=== PATIENT | male | born 1955 | race Caucasian/White ===

== ENCOUNTER 2018-06-27 08:49 | Emergency (ER) | payer MEDICARE ==
[~2018-06-27] VITALS: Ht 198.1 cm; Wt 102.5 kg
[~2018-06-27 08:49] MED LIST: ATROVENT HFA12.9 GM INH; CENTRUM SILVER1 EAC2 PO; COUMADIN4 MG PO; COUMADIN5 MG PO; DIINDOLYLMETHANE1 GM MISC; FISH OIL 1,0001 EAC2 NG; FLOVENT DISKUS50 MCG INH; LEVAQUIN500 MG PO; LEVOFLOXACIN500 MG PO; NORCO 5-325 TA1 EACH PO; OLYSIO PO; PRILOSEC20 MG PO; TOPROL XL100 MG PO; VENTOLIN HFA18 GM IH; VIAGRA50 MG PO; VITAMIN C1000 M1 PO; WARFARIN SODIUM4 MG PO
[2018-06-27] MEDS ORDERED: GABAPENTIN300 MG PO (09:03)
[2018-06-27] MEDS ORDERED: METHOCARBAMOL500 MG PO (09:03)
[2018-06-27] MEDS ORDERED: NORCO 7.5-3251 EACH PO (09:44)
== END 2018-06-27 10:32 | disposition home or self-care (01) ==
LOC: ED 08:49
DX: S22.42XA Multiple fractures of ribs, left side, initial encounter for closed fracture (principal); I48.2 Chronic atrial fibrillation; J45.909 Unspecified asthma, uncomplicated; Z87.891 Personal history of nicotine dependence; Z90.49 Acquired absence of other specified parts of digestive tract; Z79.01 Long term (current) use of anticoagulants; Z79.899 Other long term (current) drug therapy; W19.XXXA Unspecified fall, initial encounter
CPT/HCPCS: 71101; 85610; 99283-25

== ENCOUNTER 2018-08-01 21:57 | Emergency (ER) | payer MEDICARE ==
[~2018-08-01] VITALS: Ht 198.1 cm; Wt 98.0 kg
--- OUTSIDE RECORDS SUMMARY | ~2018-08-01 | XMS | Encounter Summary ---
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 [address]. All righ ts reserved. This information is not intended as a substitute for professional medical care. Always follow your healthcare professional's instructions. in this encounter Medications at Time of Discharge + + +---------+---------+ + + | Medication | Sig. | Disp. | Refills | Start | End Date | | | | | | Date | | + + +---------+---------+ + + | acetaminophen | Take 2 tablets by | 30 | 0 | 05/24/19 | | | (TYLENOL) 500 MG | mouth every 8 | tablet | | 19 | | | tablet | (eight) hours. | | | | | + + +---------+---------+ + + | albuterol | Inhale 2 puffs into | | | | | | (PROVENTIL | the lungs. | | | | | | HFA;VENTOLIN HFA) | | | | | | | 108 (90 Base) | | | | | | | MCG/ACT inhaler | | | | | | + + +---------+---------+ + + | bisoprolol | Take 1 tablet by | 30 | 11 | 05/05/19 | | | (ZEBETA) 10 MG | mouth daily. | tablet | | 19 | 0 | | tabletIndications: | | | | | | | Permanent atrial | | | | | | | fibrillation (HCC) | | | | | | + + +---------+---------+ + + | | Inhale 2 puffs into | 1 | 12 | 01/18/20 | | | budesonide-formotero | the lungs 2 (two) | Inhaler | | 18 | 9 | | l (SYMBICORT) | times daily. | | | | | | 160-4.5 MCG/ACT | | | | | | | inhaler | | | | | | + + +---------+---------+ + + | omeprazole | Take 20 mg by mouth. | | | | | | (PRILOSEC) 20 MG | | | | | | | capsule | | | | | | + + +---------+---------+ + + | warfarin | Take 6 mg by mouth | | | | | | (COUMADIN) 4 MG | daily. | | | | | | tabletIndications: | | | | | | | Taking 6 mg on | | | | | | | Wednesday, Wednesday, | | | | | | | and Wednesday, 8 mg all | | | | | | | other days. | | | | | | | Followed by [facility] | | | | | | | [facility] | | | | | | + + +---------+---------+ + + | methocarbamol | Take 1 tablet by | 180 | 0 | 05/24/19 | | | (ROBAXIN) 500 MG | mouth 3 (three) | tablet | | 19 | 9 | | tablet | times daily as | | | | | | | needed for up to 30 | | | | | | | days. | | | | | + + +---------+---------+ + + | gabapentin | Take 1 capsule by | 90 | 0 | 05/24/19 | | | (NEURONTIN) 300 MG | mouth 3 (three) | capsule | | 19 | 9 | | capsule | times daily for 30 | | | | | | | days. | | | | | + + +---------+---------+ + + as of this encounter Progress Notes Ernst Victoria PA-C - 05/24/2018 8:24 AM PSTFormatting of this note may be different fr om the original. [facility] Service: Cardiothoracic Surgery Progress Note ROOM: 9103/[facility]-1 Hospital Day: LOS: 1 day Post-Op Day: 1 Day Post-Op Surgery/Procedure: 05/23/18 1. Left thoracoscopy. 2. Resection of large left bulla. SUBJECTIVE Events Overnight: Stable night, some muscular pain. CT Output: 0mL/overnight, 0mL/24hrs, no airleak noted OBJECTIVE Vital Signs: BP (!) 134/99 (BP Location: Left upper arm) | Pulse 84 | Temp 97.7 F (36.5 C) (Oral) | Resp 18 | Ht 1.981 m (6' 6") | Wt 104 kg (229 lb 4.5 oz) | SpO2 94% | BMI 26.50 kg/m Current weight: Patient Vitals for the past 96 hrs: Weight 05/24/18 0344 104 kg (229 lb 4.5 oz) 05/23/18 0626 99.7 kg (219 lb 12.8 oz) Admission weight: Weight: 99.7 kg (219 lb 12.8 oz) Physical Exam: General: Alert, oriented, in no acute distress, resting in chair Heart: RRR No murmur Lungs: CTA b/l Dim bases. Abdomen: Soft, nondistended, nontender Extremities: Well perfused, No LE edema Musculoskeletal: no deformities or significant abnormalities Neurological: No gross focal motor or sensory deficits Skin: No rash or lesions. Thoracoscopy incision dressing is C/D/I. Chest tube present inc ision C/D/I. DATA: Scheduled Medications acetaminophen 1,000 mg Oral Q6H budesonide-formoterol 2 puff Inhalation BID ceFAZolin 1 g Intravenous Q8H docusate sodium 100 mg Oral BID famotidine 20 mg Oral BID Or famotidine 20 mg Intravenous BID gabapentin 300 mg Oral TID lidocaine 2 patch Transdermal Daily magnesium hydroxide 30 mL Oral Daily methocarbamol 1,000 mg Oral 4x Daily metoprolol 100 mg Oral Daily pantoprazole 40 mg Oral QAM AC warfarin 6 mg Oral Daily Continuous Infusions PRN Medications albuterol, aluminum-magnesium hydroxide-simethicone, benzocaine-menthol, magnesium sulfate OR magnesium sulfate OR magnesium sulfate, meperidine, ondansetron, potassium OR potassium OR potassium OR potassium chloride OR potassium chloride OR potas sium chloride HOME MEDS: Prior to Admission medications Medication Sig Start Date End Date Taking? Authorizing Provider albuterol (PROVENTIL HFA;VENTOLIN HFA) 108 (90 Base) MCG/ACT inhaler Inhale 2 puffs into th e lungs. Yes Historical Provider bisoprolol (ZEBETA) 10 MG tablet Take 1 tablet by mouth daily. 05/05/18 05/05/19 Yes EDINSON Benson budesonide-formoterol (SYMBICORT) 160-4.5 MCG/ACT inhaler Inhale 2 puffs into the lungs 2 ( two) times daily. 01/17/18 01/17/19 Yes Tristian Foote MD omeprazole (PRILOSEC) 20 MG capsule Take 20 mg by mouth. Yes Historical Provider warfarin (COUMADIN) 4 MG tablet Take 6 mg by mouth daily. Historical Provider LABS: Recent Labs Lab 05/24/18 0359 05/23/18 1213 WBC 10.67 10.64 HGB 15.7 15.2 HCT 46.6 44.3 PLT 179 169 NEUTOPHILPCT 80.25 89.53 MONOPCT 11.05 3.85 Recent Labs Lab 05/24/18 0359 05/23/18 1213 NA 140 145 K 4.3 4.9 CL 103 106 CO2 26 27 BUN 19 13 CREATININE 1.1 1.07 Phosphorus: No results found for: PHOS Invalid input(s): LABALBU Recent Labs Lab 05/24/18 0359 05/23/18 1213 MG 2.2 2.1 No results for input(s): AMYLASE in the last 168 hours. No results for input(s): PHART, PO2ART, SZM3IVL, S4SQYGBX, BEART in the last 168 hours. Recent Labs Lab 05/23/18 0645 INR 1.2 No results for input(s): TSH, T3FREE, FREET4 in the last 168 hours. No results for input(s): CKTOTAL, TROPONINI, TROPONINT, CKMBINDEX in the last 168 hours. PROBLEM LIST Principal Problem: Lung bullae (HCC) ASSESSMENT & PLAN S/P VATS resection of large bullae -CXR no PTX, no airleak. Remove CT -CXR @ 1200, if stable pt can DC home F/u in 2wks with CXR Code Status: Full Code The patient has been seen, all new lab results and imaging reviewed, and the plan discussed with the attending provider, Dr. Braxton Victoria PA-C 05/24/2018 Associated attestation - Samson Limon MD - 05/24/2018 1:43 PM PSTPatient was seen, pamelai vonnie, labs, x-rays, treatment plan reviewed. in this encounter Plan of Treatment +--------+---------+ + + + | Date | Type | Specialty | Care Team | Description | +--------+---------+ + + + | 08/05/ | Office | Pulmonology | Tristian Foote MD | | | 2018 | Visit | | [address] | | | | | | [place] [address] | | | | | | [phone] | | | | | | | | +--------+---------+ + + + | 08/15/ | Office | Cardiology | Sarai Arce | | | 2018 | Visit | | [address] | | | | | | [address] | | | | | | [place] [address] | | | | | | [phone] | | | | | | | | +--------+---------+ + + + | 08/19/ | Office | General Surgery | Michele Motta, | | | 2018 | Visit | | MD Donna [address]EE | | | | | | [address], | | | | | | [place] [address] | | | | | | [phone] | | | | | | | | +--------+---------+ + + + as of this encounter Procedures + +--------+ + + + | Procedure Name | Priori | Date/Time | Associated Diagnosis | Comments | | | ty | | | | + +--------+ + + + | XR CHEST 2 VIEW | Routin | 05/24/2018 | | Results for this | | FRONTAL AND LATERAL | e | 9:30 AM | | procedure are in the | | | | PST | | results section. | + +--------+ + + + | XR CHEST 1 VIEW | Routin | 05/24/2018 | | Results for this | | | e | 5:20 AM | | procedure are in the | | | | PST | | results section. | + +--------+ + + + | CBC W/AUTO DIFF | Routin | 05/24/2018 | | Results for this | | (REFLEX TO MANUAL) | e | 3:59 AM | | procedure are in the | | | | PST | | results section. | + +--------+ + + + | MAGNESIUM | Routin | 05/24/2018 | | Results for this | | | e | 3:59 AM | | procedure are in the | | | | PST | | results section. | + +--------+ + + + | BASIC METABOLIC | Routin | 05/24/2018 | | Results for this | | PANEL | e | 3:59 AM | | procedure are in the | | | | PST | | results section. | + +--------+ + + + | CBC W/AUTO DIFF | DENG | 05/23/2018 | | Results for this | | (REFLEX TO MANUAL) | | 12:13 PM | | procedure are in the | | | | PST | | results section. | + +--------+ + + + | MAGNESIUM | DENG | 05/23/2018 | | Results for this | | | | 12:13 PM | | procedure are in the | | | | PST | | results section. | + +--------+ + + + | BASIC METABOLIC | DENG | 05/23/2018 | | Results for this | | PANEL | | 12:13 PM | | procedure are in the | | | | PST | | results section. | + +--------+ + + + | PATHOLOGY HISTOLOGY | Routin | 05/23/2018 | Lung bullae (HCC) | Results for this | | - TISSUE | e | 11:00 AM | | procedure are in the | | | | PST | | results section. | + +--------+ + + + | XR CHEST 1 VIEW | STAT | 05/23/2018 | | Results for this | | | | 10:42 AM | | procedure are in the | | | | PST | | results section. | + +--------+ + + + | OR GENERAL SCOPE | Routin | 05/23/2018 | | Results for this | | IMAGING | e | 10:09 AM | | procedure are in the | | | | PST | | results section. | + +--------+ + + + | THORACOSCOPY - | | 05/23/2018 | Lung bullae (HCC) | | | BIOPSY | | 8:15 AM | | | | | | PST | | | + +--------+ + + + +---+--------+ | | | | | Specia | | | l | | | Needs | | | PT is | | | 6'6" | +---+--------+ + +------+ + + + | PROTIME-INR | STAT | 05/23/2018 | | Results for this | | | | 6:45 AM | | procedure are in the | | | | PST | | results section. | + +------+ + + + | TYPE AND SCREEN | STAT | 05/23/2018 | Lung bullae (HCC) | Results for this | | | | 6:31 AM | | procedure are in the | | | | PST | | results section. | + +------+ + + + in this encounter Results X-ray chest 2 view frontal & lateral (06/06/2018 12:12 PM) + + + | Impressions | Performed At | + + + | 1. Emphysematous change. 2. Large bulla in the left lung base again | [facility] | | defined on the lateral film. 3. Strandy atelectasis or scar in the | [facility]OLOG[facility] | | lung bases again noted. 4. Small hiatal hernia. Signed by: Evgeny, | | | Jesus Sign Date/Time: 06/06/2018 1:30 PM | | + + + + + + | Narrative | Performed At | + + + | CHEST TWO VIEWS CLINICAL INFORMATION: Lung Bullae COMPARISON: XR | [facility] | | CHEST 2 VIEW FRONTAL AND LATERAL (05/24/2018); XR CHEST 1 VIEW | [facility] | | (05/24/2018); XR CHEST 1 VIEW [...] changes in the bilateral lung bases and | | | right lung apex again noted. Heart size is normal. Small hiatal | | | hernia again noted. | | + + + + + | Procedure Note | + + | Perfecto, Rad Results In - 06/06/2018 1:34 PM PST CHEST TWO VIEWS | | CLINICAL INFORMATION: [...] Small hiatal hernia. | | Signed by: Jessu Pepper | | Sign Date/Time: 06/06/2018 1:30 PM | + + + + + + + | Performing | Address | City/State/Zipcode | Phone Number | | Organization | | | | + + + + + | [facility] | [address] | [place] [address] | | + + + + + X-ray chest 2 view frontal & lateral (05/24/2018 9:30 AM) + + + | Impressions | Performed At | + + + | *Status post removal of the left thoracostomy tube. Possible | [facility] | | trace left apical pneumothorax. Similar soft tissue emphysema | [facility] | | along left lateral chest wall. 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 Bibasilar subsegmental atelectasis or scarring. Signed | | | by: Bobo Ledesma Sign Date/Time: 05/24/2018 12:51 PM | | + + + + + + | Narrative | Performed At | + + + | CHEST TWO VIEWS CLINICAL INFORMATION: Status post chest tube | [facility] | | removal. COMPARISON: XR CHEST 1 VIEW (05/24/2018); XR CHEST 1 VIEW | [facility] | | (05/23/2018); CT CHEST WO CONTRAST (02/11/2018); XR CHEST 2 VIEWS | | | (02/08/2013); XR CHEST 2 VIEW (02/08/2013); FINDINGS: Normal | | | cardiac size. Moderate size hiatal hernia, better visualized on CT | | | dated 02/11/2018. Mild aortic atherosclerosis. COPD with | | | pulmonary emphysema. Interval removal of the left thoracostomy | | | tube. Possible trace left apical pneumothorax. Soft tissue | | | emphysema along left lateral chest wall. Bibasilar subsegmental | | | atelectasis or scarring. Multiple remote healed right rib | | | fractures. Osteopenia. Mild thoracic spondylosis. | | + + + + + | Procedure Note | + + | Perfecto, Rad Results In - 05/24/2018 12:54 PM PST CHEST TWO VIEWS | | CLINICAL INFORMATION: | | Status post chest tube removal. | | COMPARISON: | | XR CHEST 1 VIEW (05/24/2018); XR CHEST 1 VIEW (05/23/2018); CT CHEST WO | | CONTRAST (02/11/2018); XR CHEST 2 VIEWS (02/08/2013); XR CHEST 2 VIEW | | (02/08/2013); | | FINDINGS: | | Normal cardiac size. Moderate size hiatal hernia, better visualized on | | CT dated 02/11/2018. Mild aortic atherosclerosis. | | COPD with pulmonary emphysema. Interval removal of the left | | thoracostomy tube. Possible trace left apical pneumothorax. Soft | | tissue emphysema along left lateral chest wall. Bibasilar subsegmental | | atelectasis or scarring. Multiple remote healed right rib fractures. | | Osteopenia. Mild thoracic spondylosis. | | IMPRESSION: | | *Status post removal of the left thoracostomy tube. Possible trace | | left apical pneumothorax. Similar soft tissue emphysema along left | | lateral chest wall. | | *COPD with pulmonary emphysema. Bibasilar subsegmental atelectasis or | | scarring. | | Signed by: Bobo Ledesma | | Sign Date/Time: 05/24/2018 12:51 PM | + + + + + + + | Performing | Address | City/State/Zipcode | Phone Number | | Organization | | | | + + + + + | [facility] | [address] | [place] [address] | | + + + + + X-ray chest 1 view (05/24/2018 5:20 AM) + + + | Impressions | Performed At | + + + | 1. Stable positioning of the left-sided chest tube. 2. Stable | [facility] | | streaky left basilar scarring or atelectasis. COPD/emphysema. 3. | RAD[facility]OLOG[facility] | | Cardiomediastinal contours are stable. 4. No visible | | | pneumothorax. Increased left chest wall subcutaneous emphysema. | | | Signed by: MD Carol, Torrie Sign Date/Time: 05/24/2018 5:54 AM | | + + + + + + | Narrative | Performed At | + + + | CHEST ONE VIEW CLINICAL INFORMATION: Respiratory status. | [facility] | | COMPARISON: X-ray yesterday. | RAD[facility]OLOGY | + + + + + | Procedure Note | + + | [place] Results In - 05/24/2018 5:57 AM PST CHEST ONE VIEW | | CLINICAL INFORMATION: | | Respiratory status. | | COMPARISON: | | X-ray yesterday. | | IMPRESSION: | | 1. Stable positioning of the left-sided chest tube. | | 2. Stable streaky left basilar scarring or atelectasis. COPD/emphysema. | | 3. Cardiomediastinal contours are stable. | | 4. No visible pneumothorax. Increased left chest wall subcutaneous | | emphysema. | | Signed by: MD Medina Paula | | Sign Date/Time: 05/24/2018 5:54 AM | + + + + + + + | Performing | Address | City/State/Zipcode | Phone Number | | Organization | | | | + + + + + | [facility] | [address] | [place] [address] | | + + + + + Magnesium (05/24/2018 3:59 AM) + + + + + | Component | Value | Ref Range | Performed At | + + + + + | MAGNESIUM | 2.2Comment: Testing | 1.7 - 2.4 mg/dL | [facility] | | | performed at [facility], [address] | | LABORATORY | | | [address], | | | | | [place] [address] | | | + + + + + + + | Specimen | + + | Blood | + + + + + + + | Performing | Address | City/State/Zipcode | Phone Number | | Organization | | | | + + + + + | [facility] | [address] | [place] [address] | [phone] | | LABORATORY | [address] | | | + + + + + CBC w/diff (05/24/2018 3:59 AM) + + + + + | Component | Value | Ref Range | Performed At | + + + + + | WBC | 10.67 | 3.80 - 11.00 K/uL | [facility] | | | | | LABORATORY | + + + + + | RBC | 4.86 | 4.20 - 5.70 M/uL | [facility] | | | | | LABORATORY | + + + + + | HGB | 15.7 | 13.2 - 17.0 g/dL | [facility] | | | | | LABORATORY | + + + + + | HCT | 46.6 | 39.0 - 50.0 % | [facility] | | | | | LABORATORY | + + + + + | MCV | 95.8 | 80.0 - 100.0 fl | [facility] | | | | | LABORATORY | + + + + + | MCH | 32.4 | 27.0 - 34.0 pg | [facility] | | | | | LABORATORY | + + + + + | MCHC | 33.8 | 32.0 - 35.5 g/dL | [facility] | | | | | LABORATORY | + + + + + | RDW SD | 46.8 | 37 - 53 fl | [facility] | | | | | LABORATORY | + + + + + | PLT | 179 | 150 - 400 K/uL | [facility] | | | | | LABORATORY | + + + + + | MPV | 10.4 | fl | [facility] | | | | | LABORATORY | + + + + + | DIFF TYPE | AUTOMATED | | [facility] | | | | | LABORATORY | + + + + + | NEUTROPHILS | 80.25 | % | [facility] | | | | | LABORATORY | + + + + + | LYMPHOCYTES | 8.63 | % | [facility] | | | | | LABORATORY | + + + + + | MONOCYTES | 11.05 | % | [facility] | | | | | LABORATORY | + + + + + | EOSINOPHILS | 0.01 | % | [facility] | | | | | LABORATORY | + + + + + | BASOPHILS | 0.06 | % | [facility] | | | | | LABORATORY | + + + + + | NEUTROPHILS ABS | 8.56 (H) | 1.90 - 7.40 K/uL | [facility] | | | | | LABORATORY | + + + + + | LYMPHOCYTES ABS | 0.92 (L) | 1.00 - 3.90 K/uL | [facility] | | | | | LABORATORY | + + + + + | MONOCYTES ABS | 1.18 (H) | 0.00 - 0.80 K/uL | [facility] | | | | | LABORATORY | + + + + + | EOSINOPHILS ABS | 0.00 | 0.00 - 0.50 K/uL | [facility] | | | | | LABORATORY | + + + + + | BASOPHILS ABS | 0.01Comment: Testing | 0.00 - 0.10 K/uL | [facility] | | | performed at [facility], [address] | | LABORATORY | | | [address], | | | | | [place] [address] | | | + + + + + + + | Specimen | + + | Blood | + + + + + + + | Performing | Address | City/State/Zipcode | Phone Number | | Organization | | | | + + + + + | [facility] | [address] | [place] [address] | [phone] | | LABORATORY | [address] | | | + + + + + Basic metabolic panel (05/24/2018 3:59 AM) + + + + + | Component | Value | Ref Range | Performed At | + + + + + | SODIUM | 140 | 135 - 145 mmol/L | [facility] | | | | | LABORATORY | + + + + + | POTASSIUM | 4.3 | 3.5 - 4.9 mmol/L | [facility] | | | | | LABORATORY | + + + + + | CHLORIDE | 103 | 99 - 109 mmol/L | [facility] | | | | | LABORATORY | + + + + + | CO2 | 26 | 23 - 32 mmol/L | [facility] | | | | | LABORATORY | + + + + + | ANION GAP AGAP | 15 | 5 - 20 mmol/L | [facility] | | | | | LABORATORY | + + + + + | GLUCOSE | 118 (H) | 65 - 99 mg/dL | [facility] | | | | | LABORATORY | + + + + + | BUN | 19 | 8 - 25 mg/dL | [facility] | | | | | LABORATORY | + + + + + | CREATININE | 1.1 | 0.70 - 1.30 mg/dL | [facility] | | | | | LABORATORY | + + + + + | BUN/CREAT | 17 | | [facility] | | | | | LABORATORY | + + + + + | CALCIUM | 9.1 | 8.5 - 10.5 mg/dL | [facility] | | | | | LABORATORY | + + + + + | EGFR | >60Comment: GFR <60: | >60 mL/min/1.73m2 | [facility] | | | CHRONIC KIDNEY DISEASE, | | LABORATORY | | | IF FOUND OVER A 3 MONTH | | | | | PERIOD.GFR <15: KIDNEY | | | | | FAILURE.FOR | | | | | AMERICANS, MULTIPLY THE | | | | | CALCULATED GFR BY | | | | | 1.210.This eGFR is | | | | | calculated using the | | | | | MDRD IDMS traceable | | | | | equation.Testing | | | | | performed at [facility], [address] | | | | | [facility], | | | | | [place] [address] | | | + + + + + + + | Specimen | + + | Blood | + + + + + + + | Performing | Address | City/State/Zipcode | Phone Number | | Organization | | | | + + + + + | [facility] | [address] | [place] [address] | [phone] | | LABORATORY | [address] | | | + + + + + Magnesium (05/23/2018 12:13 PM) + + + + + | Component | Value | Ref Range | Performed At | + + + + + | MAGNESIUM | 2.1Comment: Testing | 1.7 - 2.4 mg/dL | [facility] | | | performed at [facility] | | | | | [address];[place] | | | | | [address] | | | + + + + + + + | Specimen | + + | Blood | + + + + + + + | Performing | Address | City/State/Zipcode | Phone Number | | Organization | | | | + + + + + | [facility] | [address] | [place] [address] | | + + + + + Basic metabolic panel (05/23/2018 12:13 PM) + + + + + | Component | Value | Ref Range | Performed At | + + + + + | SODIUM | 145 | 135 - 145 mmol/L | [facility] | + + + + + | POTASSIUM | 4.9Comment: SLT | 3.5 - 4.9 mmol/L | [facility] | | | HEMOLYSIS | | | + + + + + | CHLORIDE | 106 | 99 - 109 mmol/L | [facility] | + + + + + | CO2 | 27 | 23 - 32 mmol/L | [facility] | + + + + + | ANION GAP AGAP | 17 | 5 - 20 mmol/L | [facility] | + + + + + | GLUCOSE | 93 | 65 - 99 mg/dL | [facility] | + + + + + | BUN | 13 | 8 - 25 mg/dL | [facility] | + + + + + | CREATININE | 1.07 | 0.70 - 1.30 mg/dL | [facility] | + + + + + | BUN/CREAT | 12 | | [facility] | + + + + + | CALCIUM | 8.4 (L) | 8.5 - 10.5 mg/dL | [facility] | + + + + + | EGFR | >60Comment: GFR <60: | >60 mL/min/1.73m2 | [facility] | | | CHRONIC KIDNEY DISEASE, | | | | | IF FOUND OVER A 3 MONTH | | | | | PERIOD.GFR <15: KIDNEY | | | | | FAILURE.FOR | | | | | AMERICANS, MULTIPLY THE | | | | | CALCULATED GFR BY | | | | | 1.210.This eGFR is | | | | | calculated using the | | | | | MDRD VAMS traceable | | | | | equation.Testing | | | | | performed at [facility] | | | | | [address];[place], [place] | | | | | [address] | | | + + + + + + + | Specimen | + + | Blood | + + + + + + + | Performing | Address | City/State/Zipcode | Phone Number | | Organization | | | | + + + + + | [facility] | [address] | [facility] [place] [address] | | + + + + + CBC w/diff (05/23/2018 12:13 PM) + + + + + | Component | Value | Ref Range | Performed At | + + + + + | WBC | 10.64 | 3.80 - 11.00 K/uL | [facility] | + + + + + | RBC | 4.68 | 4.20 - 5.70 M/uL | [facility] | + + + + + | HGB | 15.2 | 13.2 - 17.0 g/dL | [facility] | + + + + + | HCT | 44.3 | 39.0 - 50.0 % | [facility] | + + + + + | MCV | 94.5 | 80.0 - 100.0 fl | [facility] | + + + + + | MCH | 32.4 | 27.0 - 34.0 pg | [facility] | + + + + + | MCHC | 34.3 | 32.0 - 35.5 g/dL | [facility] | + + + + + | RDW SD | 47.3 | 37 - 53 fl | [facility] | + + + + + | PLT | 169 | 150 - 400 K/uL | [facility] | + + + + + | MPV | 9.4 | fl | [facility] | + + + + + | DIFF TYPE | AUTOMATED | | [facility] | + + + + + | NEUTROPHILS | 89.53 | % | [facility] | + + + + + | LYMPHOCYTES | 6.20 | % | [facility] | + + + + + | MONOCYTES | 3.85 | % | [facility] | + + + + + | EOSINOPHILS | 0.14 | % | [facility] | + + + + + | BASOPHILS | 0.28 | % | [facility] | + + + + + | NEUTROPHILS ABS | 9.52 (H) | 1.90 - 7.40 K/uL | [facility] | + + + + + | LYMPHOCYTES ABS | 0.66 (L) | 1.00 - 3.90 K/uL | [facility] | + + + + + | MONOCYTES ABS | 0.41 | 0.00 - 0.80 K/uL | [facility] | + + + + + | EOSINOPHILS ABS | 0.02 | 0.00 - 0.50 K/uL | [facility] | + + + + + | BASOPHILS ABS | 0.03 | 0.00 - 0.10 K/uL | [facility] | + + + + + | MORPHOLOGY | RBC AND PLT MORPHOLOGY | | [facility] | | | APPEAR NORMAL | | | + + + + + | Diff Comment | SLIDE SCANNED, AGREES | | [facility] | | | WITH AUTOMATED | | | | | RESULTS.Comment: Testing | | | | | performed at [facility] | | | | | [facility];[place], [place] | | | | | [id number] | | | + + + + + + + | Specimen | + + | Blood | + + + + + + + | Performing | Address | City/State/Zipcode | Phone Number | | Organization | | | | + + + + + | [facility] | [address] | [place] [address] | | + + + + + Pathology histology - tissue (05/23/2018 11:00 AM) + + | Specimen | + + | Tissue | + + + + + | Narrative | Performed At | + + + | SPECIMEN(S): A LEFT LUNG BULLAE SPECIMEN SOURCE: A. LEFT LUNG | [facility] | | BULLAE CLINICAL HISTORY: Left lung bullae FINAL PATHOLOGIC | PATHOLOGY | | DIAGNOSIS: Lung, left, wedge biopsy: - Bulla. - Negative for | | | cytologic atypia or malignancy. BAM:mfr:C2NR MICROSCOPIC | | | EXAMINATION: Histologic sections of all submitted blocks are examined | | | by light microscopy. These findings, together with the gross | | | examination, support the pathologic diagnosis. GROSS DESCRIPTION: | | | The specimen, labeled "WC, left lung bullae," is received in formalin | | | and consists of a 6.4 x 5.5 x 0.9 cm wedge of the lung. The pleural | | | surface is a pink to violaceous and smooth. The staple line is | | | removed and the specimen is serially sectioned to reveal a 6.4 x 4.2 x | | | 0.9 cm collapsed air-filled sac like structure. The uninvolved | | | lung parenchyma is pink and spongy. Bottom Liner sections are | | | submitted in cassettes (A1-A2). FB (under the direct supervision of a | | | pathologist) The Gross Description was prepared using a voice | | | recognition system. The report was reviewed for accuracy; however, | | | sound-alike word errors, addition and/or deletions may occur. If | | | there is any question about this report, please contact Client | | | Services. PERFORMING LABORATORY: The technical component was | | | performed by [facility], [address] [place] [id number] | | | (Director Of Quality: Maranda Brown MD; CLIA# [id number]). | | | Professional interpretation was performed by [facility] | | | [facility], [facility], [address] | | | [place] [address]. Diagnostician: Danny Delaney MD | | | Pathologist Electronically Signed 05/24/2018 | | + + + + +---------+ + + | Performing | Address | City/State/Zipcode | Phone Number | | Organization | | | | + +---------+ + + | [facility] | | | | + +---------+ + + X-ray chest 1 view (05/23/2018 10:42 AM) + + + | Impressions | Performed At | + + + | Left-sided chest tube seen, with tip at the apex. No pneumothorax | [facility] | | seen. Signed by: Jose Honeycutt Sign Date/Time: 05/23/2018 10:56 AM | RADIOLOGY | + + + + + + | Narrative | Performed At | + + + | CHEST ONE VIEW CLINICAL INFORMATION: post-op COMPARISON: CT | [facility] | | CHEST WO CONTRAST (02/11/2018); FINDINGS: Left-sided chest tube tip | [facility] | | appears to project at the apex. No left pneumothorax | | | appreciated. Cardiomediastinal silhouette appears | | | unremarkable. Areas of scarring identified involving the mid to | | | lower lungs. Bullous changes identified at the left lung base. | | + + + + + | Procedure Note | + + | [facility] Results In - 05/23/2018 11:00 AM PST CHEST ONE VIEW | | CLINICAL INFORMATION: | | post-op | | COMPARISON: | | CT CHEST WO CONTRAST (02/11/2018); | | FINDINGS: | | Left-sided chest tube tip appears to project at the apex. No left | | pneumothorax appreciated. Cardiomediastinal silhouette appears | | unremarkable. Areas of scarring identified involving the mid to lower | | lungs. Bullous changes identified at the left lung base. | | IMPRESSION: | | Left-sided chest tube seen, with tip at the apex. No pneumothorax seen. | | Signed by: Jose Honeycutt | | Sign Date/Time: 05/23/2018 10:56 AM | + + + + + + + | Performing | Address | City/State/Zipcode | Phone Number | | Organization | | | | + + + + + | [facility] | [address] | [place] [address] | | + + + + + OR General Scope Imaging (05/23/2018 10:09 AM) + + + | Narrative | Performed At | + + + | This is a non-reportable procedure without a radiologist report and | [facility] | | is used for image storage only. Please review the OR procedure | RADIOLOGY | | report for details on the procedure. | | + + + + + + + + | Performing | Address | City/State/Zipcode | Phone Number | | Organization | | | | + + + + + | [facility] | [address] | [place] [address] | | + + + + + Protime-INR (05/23/2018 6:45 AM) + + + + + | Component | Value | Ref Range | Performed At | + + + + + | INR | 1.2Comment: REFERENCE | | [facility] | | | RANGE:0.9 - | | | | | 1.2 NON-ANTICOAGULATE | | | | | D2.0 - 3.0 ALL OTHER | | | | | THERAPEUTIC | | | | | INDICATIONS2.5 - 3.5 | | | | | MECHANICAL HEART VALVES, | | | | | RECURRENT OR SYSTEMIC | | | | | EMBOLISMTesting | | | | | performed at [facility];[address] | | | | [address];[place] | | | | | [address] | | | + + + + + + + | Specimen | + + | Blood | + + + + + + + | Performing | Address | City/State/Zipcode | Phone Number | | Organization | | | | + + + + + | [facility] | [address] | [facility] [place] [place] [address] | | + + + + + Type and screen (05/23/2018 6:31 AM) + + + + + | Component | Value | Ref Range | Performed At | + + + + + | ABO/RH(D) | O POSITIVE | | [facility] | + + + + + | ANTIBODY SCREEN | NEGATIVE | | [facility] | + + + + + | ARM BAND NUMBER | [id number] | | [facility] | | | performed at [facility];[address] | | | | [address];[place] | | | | | [address] | | | + + + + + + + | Specimen | + + | Blood | + + + + + + + | Performing | Address | City/State/Zipcode | Phone Number | | Organization | | | | + + + + + | [facility] | [address] | [place] [address] | | + + + + + in this encounter Visit Diagnoses Not on filein this encounter Admitting Diagnoses + + | Diagnosis | + + | Lung bullae (HCC) | + + | Emphysematous bleb | + + Administered Medications + +--------+ + +------+------+ | Medication Order | MAR | Action | Dose | Rate | Site | | | Action | Date | | | | + +--------+ + +------+------+ | acetaminophen (TYLENOL) tablet | Given | 05/23/2018 | 1,000 mg | | | | 1,000 mg 1,000 mg, Oral, Every 6 | | 21:09 | | | | | Hours, First dose on 05/23/18 | | PST | | | | | at 0930 | | | | | | + +--------+ + +------+------+ +-------+ + +---+---+ | Given | 05/24/2018 | 1,000 mg | | | | | 04:09 | | | | | | PST | | | | +-------+ + +---+---+ | Given | 05/24/2018 | 1,000 mg | | | | | 09:48 | | | | | | PST | | | | +-------+ + +---+---+ + +---+ | | | + +---+ | benzocaine-menthol (Cepacol | | | Sore Throat) 15-2.6 MG lozenge 1 | | | lozenge 1 lozenge, Buccal, Every | | | 1 Hour PRN, Sore Throat, | | | Starting Wed05/23/18 at 1246 | | + +---+ | | | + +---+ + +-------+ +---------+---+---+ | budesonide-formoterol | Given | 05/23/2018 | 2 puffs | | | | (SYMBICORT) 160-4.5 MCG/ACT | | 16:47 | | | | | inhaler 2 puff 2 puff, | | PST | | | | | Inhalation, 2 Times Daily, First | | | | | | | dose on Wed05/23/18 at 1430 | | | | | | + +-------+ +---------+---+---+ +-------+ +---------+---+---+ | Given | 05/23/2018 | 2 puffs | | | | | 21:09 | | | | | | PST | | | | +-------+ +---------+---+---+ | Given | 05/24/2018 | 2 puffs | | | | | 12:07 | | | | | | PST | | | | +-------+ +---------+---+---+ +---+---+ | | | +---+---+ + +-------+ +-----+-------+---+ | ceFAZolin in dextrose (ANCEF) | Given | 05/23/2018 | 1 g | 100 | | | IVPB 1 g 1 g, Intravenous, | | 16:48 | | mL/hr | | | Administer over 30 Minutes, Every | | PST | | | | | 8 Hours, First dose on Mon | | | | | | | 05/23/18 at 1700, Until chest tubes | | | | | | | are out. | | | | | | + +-------+ +-----+-------+---+ +-------+ +-----+-------+---+ | Given | 05/24/2018 | 1 g | 100 | | | | 00:08 | | mL/hr | | | | PST | | | | +-------+ +-----+-------+---+ | Given | 05/24/2018 | 1 g | 100 | | | | 09:47 | | mL/hr | | | | PST | | | | +-------+ +-----+-------+---+ +---+---+ | | | +---+---+ + +-------+ +--------+---+---+ | docusate sodium (COLACE) | Given | 05/23/2018 | 100 mg | | | | capsule 100 mg 100 mg, Oral, 2 | | 16:48 | | | | | Times Daily, First dose on Mon | | PST | | | | | 05/23/18 at 1230 | | | | | | + +-------+ +--------+---+---+ +-------+ +--------+---+---+ | Given | 05/23/2018 | 100 mg | | | | | 21:08 | | | | | | PST | | | | +-------+ +--------+---+---+ | Given | 05/24/2018 | 100 mg | | | | | 09:48 | | | | | | PST | | | | +-------+ +--------+---+---+ + +---+ | | | + +---+ | famotidine (PEPCID) IVPB 20 mg | | | 20 mg, Intravenous, Administer | | | over 30 Minutes, 2 Times Daily, | | | First dose on Wed05/23/18 at 1230 | | + +---+ | | | + +---+ + +-------+ +-------+---+---+ | famotidine (PEPCID) tablet 20 | Given | 05/23/2018 | 20 mg | | | | mg 20 mg, Oral, 2 Times Daily, | | 16:55 | | | | | First dose on Wed05/23/18 at 1230 | | PST | | | | + +-------+ +-------+---+---+ +-------+ +-------+---+---+ | Given | 05/23/2018 | 20 mg | | | | | 21:09 | | | | | | PST | | | | +-------+ +-------+---+---+ | Given | 05/24/2018 | 20 mg | | | | | 09:49 | | | | | | PST | | | | +-------+ +-------+---+---+ +---+---+ | | | +---+---+ + +-------+ +--------+---+---+ | gabapentin (NEURONTIN) capsule | Given | 05/23/2018 | 300 mg | | | | 300 mg 300 mg, Oral, 3 Times | | 21:09 | | | | | Daily, First dose on 05/23/18 | | PST | | | | | at 1400 | | | | | | + +-------+ +--------+---+---+ +-------+ +--------+---+---+ | Given | 05/24/2018 | 300 mg | | | | | 06:01 | | | | | | PST | | | | +-------+ +--------+---+---+ | Given | 05/24/2018 | 300 mg | | | | | 12:06 | | | | | | PST | | | | +-------+ +--------+---+---+ + +---+ | | | + +---+ | lidocaine (LIDODERM) 5 % patch | | | 2 patch 2 patch, Transdermal, | | | Daily, First dose on Wed05/24/18 | | | at 0900 | | + +---+ | | | + +---+ + +-------+ +--------+---+-------+ | lidocaine 1 % injection PRN, | Given | 05/23/2018 | 40 mLs | | Chest | | Starting Wed05/23/18 at 1004, | | 10:04 | | | | | Intra-op | | PST | | | | + +-------+ +--------+---+-------+ +---+---+ | | | +---+---+ + +-------+ +--------+---+---+ | magnesium hydroxide (MILK OF | Given | 05/24/2018 | 30 mLs | | | | MAGNESIA) 400 MG/5ML suspension | | 09:47 | | | | | 30 mL 30 mL, Oral, Daily, First | | PST | | | | | dose on Wed05/24/18 at 0900 | | | | | | + +-------+ +--------+---+---+ + +---+ | | | + +---+ | magnesium sulfate 1 g/50 mL | | | IVPB 1 g, Intravenous, | | | Administer over 1 Hours, PRN, for | | | serum magnesium 1.2 to 1.6, | | | Starting 05/23/18 at 1205, | | | Recheck level immediately after | | | replacement and next am unless | | | previously ordered. | | + +---+ | | | + +---+ | magnesium sulfate 2 g/50 mL | | | IVPB 2 g, Intravenous, | | | Administer over 2 Hours, PRN, for | | | serum magnesium 1 to 1.1, | | | Starting 05/23/18 at 1205, | | | Recheck level immediately after | | | replacement and next am unless | | | previously ordered. | | + +---+ | | | + +---+ | magnesium sulfate 3 g/50 mL | | | IVPB 3 g, Intravenous, | | | Administer over 3 Hours, PRN, for | | | serum magnesium less than 1, | | | Starting Wed05/23/18 at 1205, | | | Recheck level immediately after | | | replacement and next am unless | | | previously ordered. | | + +---+ | | | + +---+ + +-------+ + +---+---+ | methocarbamol (ROBAXIN) tablet | Given | 05/23/2018 | 1,000 mg | | | | 1,000 mg 1,000 mg, Oral, 4 Times | | 16:47 | | | | | Daily, First dose on Wed05/23/18 | | PST | | | | | at 1200 | | | | | | + +-------+ + +---+---+ +-------+ + +---+---+ | Given | 05/23/2018 | 1,000 mg | | | | | 21:08 | | | | | | PST | | | | +-------+ + +---+---+ | Given | 05/24/2018 | 1,000 mg | | | | | 09:48 | | | | | | PST | | | | +-------+ + +---+---+ +---+---+ | | | +---+---+ + +-------+ +--------+---+---+ | metoprolol (TOPROL-XL) 24 hr | Given | 05/24/2018 | 100 mg | | | | tablet 100 mg 100 mg, Oral, | | 09:48 | | | | | Daily, First dose on Wed05/24/18 | | PST | | | | | at 0900 | | | | | | + +-------+ +--------+---+---+ +---+---+ | | | +---+---+ + +-------+ +-------+---+---+ | pantoprazole (PROTONIX) EC | Given | 05/24/2018 | 40 mg | | | | tablet 40 mg 40 mg, Oral, Every | | 06:01 | | | | | Morning Before Breakfast, First | | PST | | | | | dose on Wed05/24/18 at 0630 | | | | | | + +-------+ +-------+---+---+ + +---+ | | | + +---+ | potassium chloride (K-DUR) CR | | | tablet 20 mEq 20 mEq, Oral, PRN, | | | for serum potasium 3.5 to 4.0, | | | Starting Wed05/23/18 at 1205 | | + +---+ | | | + +---+ | potassium chloride (K-DUR) CR | | | tablet 40 mEq 40 mEq, Oral, PRN, | | | for serum potassium 3 to 3.4, | | | Starting Wed05/23/18 at 1205 | | + +---+ | | | + +---+ | potassium chloride (K-DUR) CR | | | tablet 60 mEq 60 mEq, Oral, PRN, | | | for serum potassium less than 3, | | | Starting Wed05/23/18 at 1205 | | + +---+ | | | + +---+ | potassium chloride oral | | | solution 20 mEq 20 mEq, Oral, | | | PRN, for serum potassium 3.5 to | | | 3.7, Starting [facility] 05/23/18 at 1205 | | + +---+ | | | + +---+ | potassium chloride oral | | | solution 40 mEq 40 mEq, Oral, | | | PRN, for serum potassium 3 to | | | 3.4, Starting [facility] 05/23/18 at 1205 | | + +---+ | | | + +---+ | potassium chloride oral | | | solution 60 mEq 60 mEq, Oral, | | | PRN, for serum potassium less | | | than 3, Starting [facility] 05/23/18 at | | | 1205 | | + +---+ | | | + +---+ + +-------+ +------+---+---+ | warfarin (COUMADIN) tablet 6 mg | Given | 05/24/2018 | 6 mg | | | | 6 mg, Oral, Daily, First dose | | 09:49 | | | | | on Wed05/24/18 at 0900 | | PST | | | | + +-------+ +------+---+---+ +---+---+ | | | +---+---+ in this encounter
--- OUTSIDE RECORDS SUMMARY | ~2018-08-01 | XMS | Encounter Summary ---
Demographics + + + | Address | [address] | | | [place] [address] | + + + | Home Phone | | + + + | Preferred Language | Unknown | + + + | Marital Status | | + + + | Orthodox Affiliation | 1013 | + + + | Race | Unknown | + + + | Ethnic Group | Unknown | + + + Author + + + | Author | [facility] [employer] | + + + | Organization | [facility] | + + + | Address | Unknown | + + + | Phone | Unavailable | + + + Support + + +---------+ + | Name | Relationship | Address | Phone | + + +---------+ + | Sebastien Champion | ECON | Unknown | | + + +---------+ + Care Team Providers + +------+ + | Care Hatchery Worker Name | Role | Phone | + +------+ + | Maria Vieira PA-C | PCP | | + +------+ + Encounter Details +--------+ + + + + | Date | Type | Department | Care Team | Description | +--------+ + + + + | 06/06/ | Hospital | [facility] | Ernst Victoria, | Lung bullae (HCC) | | 2019 | Encounter | [facility] | [address] | | | | | [address] | [place], | | | | | [place] [address] | [place] [address] | | | | | [phone] | [phone] | | | | | | | [...] + + + as of this encounter Medications at Time [...] | + + +---------+---------+ + + | tamsulosin | Take 1 capsule by | 30 | 1 | 05/26/19 | | | (FLOMAX) 0.4 MG | mouth After dinner. | capsule | | 19 | 9 | | capsule | | | | | | + + +---------+---------+ + + as of this encounter Plan of Treatment +--------+---------+ + + + | Date | Type | Specialty | Care Team | Description | +--------+---------+ + + + | 08/05/ | Office | Pulmonology | Tristian Foote MD | | | 2018 | Visit | | [address] | | | | | | [place] [address] | | | | | | [phone] | | | | | | | | +--------+---------+ + + + | 08/15/ | Office | Cardiology | Sarai Arce | | | 2018 | Visit | | [address] | | | | | | [place] | | | | | | [place] [address] | | | | | | [phone] | | | | | | | | +--------+---------+ + + + | 08/19/ | Office | General Surgery | Michele Motta, | | | 2018 | Visit | | MD [address] | | | | | | [address], | | | | | | [place] [address] | | | | | | [phone] | | | | | | | | +--------+---------+ + + + as of this encounter Procedures + +--------+ + + + | Procedure Name | Priori | Date/Time | Associated Diagnosis | Comments | | | ty | | | | + +--------+ + + + | XR CHEST 2 VIEW | Routin | 06/06/2018 | Lung bullae (HCC) | Results for this | | FRONTAL AND LATERAL | e | 12:12 PM | | procedure are in the | | | | PST | | results section. | + +--------+ + + + in this encounter Results [...] | + + + + + | [facility] | [address] | [place] [address] | | + + + + + in this encounter Visit Diagnoses + + | Diagnosis | + + | Lung bullae (HCC) | + + | Emphysematous bleb | + +"
--- OUTSIDE RECORDS SUMMARY | ~2018-08-01 | XMS | Encounter Summary ---
Demographics + + + | Address | [address] | | | [place] [address] | + + + | Home Phone | | + + + | Preferred Language | Unknown | + + + | Marital Status | | + + + | Rastafari Affiliation | 1013 | + + + | Race | Unknown | + + + | Ethnic Group | Unknown | + + + Author + + + | Author | [facility] | + + + | Organization | [facility] | + + + | Address | Unknown | + + + | Phone | Unavailable | + + + Support + + +---------+ + | Name | Relationship | Address | Phone | + + +---------+ + | Sebastien Champion | ECON | Unknown | | + + +---------+ + Care Team Providers + +------+ + | Care Window Air Conditioner Installer Name | Role | Phone | + +------+ + | Maria Vieira PA-C | PCP | | + +------+ + Encounter Details +--------+ + + + + | Date | Type | Department | Care Team | Description | +--------+ + + + + | 07/21/ | Hospital | [facility] | Michele Motta, | | | 2019 | Encounter | [facility] | MD Donna DEE | | | | | Preadmission | [address] [facility] | | | | | Services [address] | [place] [address] | | | | | [address] [place], [place] | [phone] | | | | | [address] | | | +--------+ + + + + Social History + +-------+ +--------+ + | Tobacco Use | Types | Packs/Day | Years | Date | | | | | Used | | + +-------+ +--------+ + | Former Smoker | | 1 | 20 | Quit: 08/12/2000 | + [...] + + + as of this encounter Discharge Instructions Maddi Corral RN - 07/21/2018Formatting of this note may be different from the jahaira spears Medication Instructions Prior to Procedure: Outpatient Prescriptions Marked as Taking for the 07/21/18 encounter (Hospital Encounter) wit h PAS ROOM 1 Medication Sig INSTRUCTIONS acetaminophen (TYLENOL) 500 MG tablet Take 2 tablets by mouth every 8 (eight) hours. TA KE day of procedure, if needed albuterol (PROVENTIL HFA;VENTOLIN HFA) 108 (90 Base) MCG/ACT inhaler Inhale 2 puffs int o the lungs. TAKE day of procedure and bring with you day of procedure bisoprolol (ZEBETA) 10 MG tablet Take 1 tablet by mouth daily. TAKE day of procedure budesonide-formoterol (SYMBICORT) 160-4.5 MCG/ACT inhaler Inhale 2 puffs into the lungs 2 (two) times daily. TAKE day of procedure and take with you day of procedure omeprazole (PRILOSEC) 20 MG capsule Take 20 mg by mouth. TAKE day of procedure warfarin (COUMADIN) 4 MG tablet Take 6 mg by mouth daily. DO NOT TAKE day of procedure, will stop taking 07/24/2018 in this encounter Medications at Time of [...] + + +---------+---------+ + + | | Take 1 tablet by | 20 | 0 | 08/02/19 | | | HYDROcodone-acetamin | mouth every 4 (four) | tablet | | 19 | 9 | | ophen (NORCO) 5-325 | hours as needed for | | | | | | MG per tablet | up to 10 days. | | | | | + + +---------+---------+ + + | ketorolac | Take 1 tablet by | 13 | 0 | 08/02/19 | | | (TORADOL) 10 MG | mouth every 6 (six) | tablet | | 19 | 9 | | tablet | hours as needed for | | | | | | | Pain for up to 5 | | | | | | | days. | | | | | + + +---------+---------+ + + | lisinopril | Take 5 mg by mouth | | | | | | (ZESTRIL) 5 MG | daily. | | | | | | tabletIndications: | | | | | | | Hypertension | | | | | | + [...] | | | | | Followed by | | | | | | | [...] [address] | | | | | | [place] [address] | | | | | | [phone] | | | | | | | | +--------+---------+ + + + | 08/15/ | Office | Cardiology | Sarai Arce | | | 2019 | Visit | | [address] | | | | | | [address] | | | | | | [place] [address] | | | | | | [phone] | | | | | | | | +--------+---------+ + + + | 08/19/ | Office | General Surgery | Michele Motta, | | | 2018 | Visit | | [address] | | | | | | [address], | | | | | | [place] [address] | | | | | | [phone] | | | | | | | | +--------+---------+ + + + as of this encounter Procedures + +--------+ + + + | Procedure Name | Priori | Date/Time | Associated Diagnosis | Comments | | | ty | | | | + +--------+ + + + | PROTIME-INR | Timed | 07/21/2018 | | Results for this | | | | 5:20 PM | | procedure are in the | | | | PDT | | results section. | + +--------+ + + + | CBC W/AUTO DIFF | Routin | 07/21/2018 | | Results for this | | (REFLEX TO MANUAL) | e | 5:20 PM | | [...] + +--------+ + + + | MRSA BY PCR | Timed | 07/21/2018 | | Results for this | | | | 5:18 PM | | procedure are in the | | | | PDT | | results section. | + +--------+ + + + | EKG STANDARD 12 LEAD | Timed | 07/21/2018 | | Results for this | | | | 5:16 PM | | procedure are in the | | | | PDT | | results section. | + +--------+ + + + in this encounter Results Protime-INR (07/21/2018 5:20 PM) + + + + + | Component | Value | Ref Range | Performed At | + + + + + | INR | 2.1Comment: REFERENCE | | [facility] | | | RANGE:0.9 - | [...] | | | | | performed at [facility];[address] | | | | | [address];[place] | | | | | [address] | | | + + + + + + + | Specimen | + + | Blood | + + + + + + + | Performing | Address | City/State/Zipcode | Phone Number | | Organization | | | | + + + + + | [facility] | [address] | [facility] [address] | | + + + + + Basic metabolic panel (07/21/2018 5:20 PM) + + + + + | Component | Value | Ref Range | Performed At | + + + + + | SODIUM | 141 | 135 - 145 mmol/L | [facility] | | | | | [facility] | + + + + + | POTASSIUM | 4.3 | 3.5 - 4.9 mmol/L | [facility] | | | | | LAB[facility]AT[facility] | + + + + + | CHLORIDE | 108 | 99 - 109 mmol/L | [facility] | | | | | LAB[facility] | + + + + + | CO2 | 29 | 23 - 32 mmol/L | [facility] | | | | | LAB[facility] | + + + + + | ANION GAP AGAP | 8 | 5 - 20 mmol/L | [facility] | | | | | LAB[facility] | + + + + + | GLUCOSE | 80 | 65 - 99 mg/dL | [facility] | | | | | LAB[facility] | + + + + + | BUN | 13 | 8 - 25 mg/dL | [facility] | | | | | LAB[facility] | + + + + + | CREATININE | 1.0 | 0.70 - 1.30 mg/dL | [facility] | | | | | LAB[facility] | + + + + + | BUN/CREAT | 13 | | [facility] | | | | | LAB[facility] | + + + + + | CALCIUM | 9.4 | 8.5 - 10.5 mg/dL | [facility] | | | | | [facility] | + + + + + | EGFR | >60Comment: GFR <60: | >60 mL/min/1.73m2 | [facility] | | | CHRONIC KIDNEY DISEASE, | [...] the | | | | | MDRD IDOH traceable | | | | | equation.Testing | | | | | performed at [facility], [address] | | | | [facility], | | | | | [place] [address] | | | + + + + + + + | Specimen | + + | Blood | + + + + + + + | Performing | Address | City/State/Zipcode | Phone Number | | Organization | | | | + + + + + | [facility] | [address] [facility] | [place] [address] | [phone] | | LABORATORY | [address] | | | + + + + + CBC W/Auto Diff (Reflex to Manual) (07/21/2018 5:20 PM) + + + + + | Component | Value | Ref Range | Performed At | + + + + + | WBC | 7.56 | 3.80 - 11.00 K/uL | [facility] | | | | | LABORAT[facility] | + + + + + | RBC | 4.86 | 4.20 - 5.70 M/uL | [facility] | | | | | LAB[facility]AT[facility] | + + + + + | HGB | 15.6 | 13.2 - 17.0 g/dL | [facility] | | | | | LABORAT[facility] | + + + + + | HCT | 47.1 | 39.0 - 50.0 % | [facility] | | | | | LABORATORY | + + + + + | MCV | 96.9 | 80.0 - 100.0 fl | [facility] | | | | | LABORAT[facility] | + + + + + | MCH | 32.1 | 27.0 - 34.0 pg | [facility] | | | | | LAB[facility]AT[facility] | + + + + + | MCHC | 33.1 | 32.0 - 35.5 g/dL | [facility] | | | | | LAB[facility]AT[facility] | + + + + + | RDW SD | 47.3 | 37 - 53 fl | [facility] | | | | | LAB[facility]AT[facility] | + + + + + | PLT | 209 | 150 - 400 K/uL | [facility] | | | | | LAB[facility]AT[facility] | + + + + + | MPV | 10.2 | fl | [facility] | | | | | [facility] | + + + + + | DIFF TYPE | AUTOMATED | | [facility] | | | | | LAB[facility]AT[facility] | + + + + + | NEUTROPHILS | 56.45 | % | [facility] | | | | | [facility] | + + + + + | LYMPHOCYTES | 28.85 | % | [facility] | | | | | [facility] | + + + + + | MONOCYTES | 11.43 | % | [facility] | | | | | [facility] | + + + + + | EOSINOPHILS | 2.12 | % | [facility] | | | | | [facility] | + + + + + | BASOPHILS | 1.15 | % | [facility] | | | | | LAB[facility] | + + + + + | NEUTROPHILS ABS | 4.27 | 1.90 - 7.40 K/uL | [facility] | | | | | [facility] | + + + + + | LYMPHOCYTES ABS | 2.18 | 1.00 - 3.90 K/uL | [facility] | | | | | LAB[facility] | + + + + + | MONOCYTES ABS | 0.86 (H) | 0.00 - 0.80 K/uL | [facility] | | | | | LABORAT[facility] | + + + + + | EOSINOPHILS ABS | 0.16 | 0.00 - 0.50 K/uL | [facility] | | | | | LAB[facility]AT[facility] | + + + + + | BASOPHILS ABS | 0.09Comment: Testing | 0.00 - 0.10 K/uL | [facility] | | | performed at [facility], [address] | | LABORATORY | | | [address], | | | | | [place] [address] | | | + + + + + + + | Specimen | + + | Blood | + + + + + + + | Performing | Address | City/State/Zipcode | Phone Number | | Organization | | | | + + + + + | [facility] | [address] [facility] | [place] [address] | [phone] | | LABORATORY | [address] | | | + + + + + MRSA by PCR (07/21/2018 5:18 PM) + + + + + | Component | Value | Ref Range | Performed At | + + + + + | SOURCE | NARES(NOSE) | | [facility] | + + + + + | MRSA PCR | NEGATIVEComment: Testing | NEGATIVE | [facility] | | | performed at [facility];[address] | | | | | [address];[place] | | | | | [address] | | | + + + + + + + | Specimen | + + | Nasopharyngeal - | | Nares(Nose) | + + + + + + + | Performing | Address | City/State/Zipcode | Phone Number | | Organization | | | | + + + + + | [facility] | [address] | [place] [address] | | + + + + + EKG STANDARD 12 LEAD (07/21/2018 5:16 PM) + + + + + | Component | Value | Ref Range | Performed At | + + + + + | Ventricular Rate | 83 | BPM | [facility] | + + + + + | Atrial Rate | 72 | BPM | [facility] | + + + + + | QRS Duration | 126 | ms | [facility] | + + + + + | Q-T Interval | 406 | ms | [facility] | + + + + + | QTC Calculation | 477 | ms | [facility] | | (Bezet) | | | | + + + + + | Calculated R [place] | 56 | degrees | [facility] | + + + + + | Calculated T [place] | 1 | degrees | [facility] | + + + + + | Diagnosis | Atrial fibrillationRight | | [facility] | | | bundle branch | | | | | blockAbnormal ECGWhen | | | | | compared with ECG of | | | | | 19-MAY-2018 14:15,No | | | | | significant change was | | | | | foundConfirmed by | | | | | Donis Lin MD | | | | | (127) on 07/22/2018 | | | | | 8:00:26 PM | | | + + + + + + + + + + | Performing | Address | City/State/Zipcode | Phone Number | | Organization | | | | + + + + + | [facility] | [address] | [place] [address] | | + + + + + in this encounter Visit Diagnoses Not on filein this encounter"
--- OUTSIDE RECORDS SUMMARY | ~2018-08-01 | XMS | Encounter Summary ---
Demographics + + + | Address | [address] | | | [place] [address] | + + + | Home Phone | | + + + | Preferred Language | Unknown | + + + | Marital Status | | + + + | Gnosticism Affiliation | 1013 | + + + | Race | Unknown | + + + | Ethnic Group | Unknown | + + + Author + + + | Author | [facility] [employer] [employer] | + + + | Organization | [facility] [employer] [facility] | + + + | Address | Unknown | + + + | Phone | Unavailable | + + + Support + + +---------+ + | Name | Relationship | Address | Phone | + + +---------+ + | Sebastien Champion | ECON | Unknown | | + + +---------+ + Care Team Providers + +------+ + | Care Site Acquisition Manager Name | Role | Phone | + +------+ + | Maria Vieira PA-C | PCP | | + +------+ + Encounter Details +--------+ + + + + | Date | Type | Department | Care Team | Description | +--------+ + + + + | 05/23/ | Procedure | [facility] | | | | 2019 | [facility] | | | | | | Operating Room [address] | | | | | | [address] | | | | | | [place] [address] | | | | | | [phone] | | | +--------+ + + + [...] + + + as of this encounter Plan of Treatment +--------+---------+ + + + | Date | Type | Specialty | Care Team | Description | +--------+---------+ + + + | 08/05/ | Office | Pulmonology | Tristian Foote MD | | | 2018 | Visit | | [address] | | | | | | [place] [address] | | | | | | [phone] | | | | | | | | +--------+---------+ + + + | 08/15/ | Office | Cardiology | Sarai Arce | | | 2019 | Visit | | [address] | | | | | | [address] | | | | | | [place] [address] | | | | | | [phone] | | | | | | | | +--------+---------+ + + + | 08/19/ | Office | General Surgery | Michele Motta, | | | 2019 | Visit | | MD [address] | | | | | | [address], | | | | | | [place] [address] | | | | | | [phone] | | | | | | | | +--------+---------+ + + + as of this encounter Visit Diagnoses Not on filein this encounter"
--- OUTSIDE RECORDS SUMMARY | ~2018-08-01 | XMS | Encounter Summary ---
Demographics + + + | Address | [address] | | | [place] [address] | + + + | Home Phone | | + + + | Preferred Language | Unknown | + + + | Marital Status | | + + + | Yarsanism Affiliation | 1013 | + + + | Race | Unknown | + + + | Ethnic Group | Unknown | + + + Author + + + | Author | [facility] [employer] | + + + | Organization | [facility] | + + + | Address | Unknown | + + + | Phone | Unavailable | + + + Support + + +---------+ + | Name | Relationship | Address | Phone | + + +---------+ + | Sebastien Champion | ECON | Unknown | | + + +---------+ + Care Team Providers + +------+ + | Care Paper Mill Supervisor Name | Role | Phone | + +------+ + | Maria Vieiar PA-C | PCP | | + +------+ + Reason for Visit Auth/Cert +--------+--------+ + + + + | Status | Reason | Specialty | Diagnoses / | Referred By | Referred To | | | | | Procedures | Contact | Contact | +--------+--------+ + + + + | | | | Diagnoses | | | | | | | Hiatal | | | | | | | Hernia with | | | | | | | reflux | | | | | | | Procedures | | | | | | | ESOPHAGOGAST | | | | | | | RODUODENOSCO | | | | | | | PY | | | +--------+--------+ + + + + Encounter Details +--------+ + + + + | Date | Type | Department | Care Team | Description | +--------+ + + + + | 06/22/ | [facility] | [facility] | Lihca Motta, | | | 2019 | [facility] | [address] | | | | | Endoscopy [address] | [address], | | | | | Blvd [place], [place] | [place] [address] | | | | | [address] | [phone] | | | | | | | [...] + + + | Blood Pressure | 143/93 | 06/22/2018 3:32 PM PST | + + + + | Pulse | 82 | 06/22/2018 3:32 PM PST | + + + + | Temperature | 36.4 C (97.6 F) | 06/22/2018 3:32 PM PST | + + + + | Respiratory Rate | 18 | 06/22/2018 3:32 PM PST | + + + + | Oxygen Saturation | 97% | 06/22/2018 3:32 PM PST | + + + + | Inhaled Oxygen | - | - | | Concentration | | | + + + + | Weight | 102.9 kg (226 lb | 06/22/2018 12:24 PM PST | | | 13.7 oz) | | + + + + | Height | 198.1 cm (6' 6") | 06/22/2018 12:24 PM PST | + + + + | Body Mass Index | 26.22 | 06/22/2018 12:24 PM PST | + + + + in this encounter Discharge Summaries Licha Motta MD - 06/22/2018 3:15 PM PSTFormatting of this note may be different from the original. [facility] Service: General Surgery Brief Post-op Discharge Note DISCHARGE DIAGNOSES: Active Problems: * No active hospital problems. * Resolved Problems: * No resolved hospital problems. * Procedures: Procedure(s): ESOPHAGOGASTRODUODENOSCOPY This patient was transferred to the recovery area post-operatively and has experienced no d ifficulties at the time of my assessment. The patient is anticipated to continue to meet di scharge criteria per protocol as assessed by nursing and may be discharged at that time with designated caregiver. Disposition: Home Condition: Stable Code Status: Full Code No discharge procedures on file. Follow up: Licha Motta MD [address] [facility] [address] [facility] [address] In 1 week for routine post operative visit. Maria Vieira PA-C [address] [place] [address] Medication List CONTINUE taking these medications acetaminophen 500 MG tablet QTY: 30 tablet Refills: 0 Commonly known as: TYLENOL Take 2 tablets by mouth every 8 (eight) hours. albuterol 108 (90 Base) MCG/ACT inhaler Refills: [...] into the lungs 2 (two) times daily. gabapentin 300 MG capsule QTY: 90 capsule Refills: 0 Commonly known as: NEURONTIN Take 1 capsule by mouth 3 (three) times daily for 30 days. methocarbamol 500 MG tablet QTY: 180 tablet Refills: 0 Commonly known as: ROBAXIN Take 1 tablet by mouth 3 (three) times daily as needed for up to 30 days. omeprazole 20 MG capsule Refills: 0 Commonly known as: PRILOSEC warfarin 4 MG tablet Refills: 0 Commonly known as: COUMADIN You might also be taking other medications not listed above. If you have questions about an y of your other medications, talk to the person who prescribed them or your Primary Care Pro vider. LICHA MOTTA MD 06/22/2018in this encounter Discharge Instructions Licha Motta MD - 06/22/2018 Dr. Motta Post Operative Instructions for EGD So you had an EsophaGogastroDuodenoscopy (also know as an EGD)? You probably don t remem boom the procedure, but most patients are left feeling bloated and may experience crampy abdo patricia pain afterward. This most likely is due to air left in the stomach and small intestin e. Things to watch out for at home include fever, chills, or abdominal pain. Complications are rare with EGD, but may take up to 72 hours to show up. If biopsies were taken, expect a report within 1 week. If you have not head anything withi n 2 weeks, call my office and we will check on the hold-up Unless instructed otherwise, resume your regular diet and any previously prescribed medicat ions immediately after the procedure. Do not attempt to drive or operate any power equipment on the day of your procedure. The s edation used will significantly slow reaction times in the event of an emergency. Don t p mayonr on making any important decisions or attending any events the day of the procedure. You may not remember what you did later. I m not responsible for any trouble you get yoursel f into. In most cases you MAY RESUME UNRESTRICTED PHYSICAL AND MENTAL ACTIVITY the day following yo ur procedure. You may or may not have to be seen again in my office. If the scope was just a check becau se you are at higher risk for cancer and was found to be normal, no follow up is necessary. If the scope was part of a work-up of some problem you are experiencing, you will most like ly need to meet with me again to plan our next move. Usual follow up is 7-10 days after the procedure. Don t be afraid to call if you have questions or problems. Our office number is [phone] in this encounter Medications at Time of [...] capsule by | 90 | 0 | 06/07/19 | | | (NEURONTIN) 300 MG | mouth 3 (three) | capsule | | 19 | | | capsule | times daily for [...] [address] | | | | | | [place] [address] | | | | | | [phone] | | | | | | | | +--------+---------+ + + + | 08/15/ | Office | Cardiology | Sarai Arce | | | 2018 | Visit | | [address] | | | | | | [address] | | | | | | [place] [address] | | | | | | [phone] | | | | | | | | +--------+---------+ + + + | 08/19/ | Office | General Surgery | Licha Motta, | | | 2018 | Visit | | MD [address] | | | | | | [address] | | | | | | [place] [address] | | | | | | [phone] | | | | | | | | +--------+---------+ + + + as of this encounter Procedures + +--------+ + + + | Procedure Name | Priori | Date/Time | Associated Diagnosis | Comments | | | ty | | | | + +--------+ + + + | ESOPHAGOGASTRODUODEN | | 06/22/2018 | Hiatal Hernia with | | | OSCOPY | | 1:00 PM | reflux | | | | | PST | | | + +--------+ + + + +---+--------+ | | | | | Specia | | | l | | | Needs | | | With | | | anesth | | | esia | +---+--------+ + +------+ +---+ + | PROTIME-INR | STAT | 06/22/2018 | | Results for this | | | | 12:17 PM | | procedure are in the | | | | PST | | results section. | + +------+ +---+ + in this encounter Results Protime-INR (06/22/2018 12:17 PM) + + + + + | Component | Value | Ref Range | Performed At | + + + + + | INR | 1.1Comment: REFERENCE | | [facility] | | | RANGE:0.9 - | [...] | | | | | performed at [facility] | | | | | [facility];[place], [place] | | | | | [address] | | | + + + + + + + | Specimen | + + | Blood | + + + + + + + | Performing | Address | City/State/Zipcode | Phone Number | | Organization | | | | + + + + + | [facility] | [address] | [place] [address] | | + + + + + in this encounter Visit Diagnoses Not on filein this encounter Admitting Diagnoses + + | Diagnosis | + + | Hiatal Hernia with reflux | + + Administered Medications + +---------+ +------+ +------+ | Medication Order | MAR | Action | Dose | Rate | Site | | | Action | Date | | | | + +---------+ +------+ +------+ | sodium chloride 0.9 % infusion | New Bag | 06/22/2018 | | 30 mL/hr | | | at 30 mL/hr, Intravenous, | | 12:29 | | | | | Continuous, Starting 06/22/18 | | PST | | | | | at 1300 | | | | | | + +---------+ +------+ +------+ +---+---+ | | | +---+---+ in this encounter
--- OUTSIDE RECORDS SUMMARY | ~2018-08-01 | XMS | Encounter Summary ---
Demographics + + + | Address | [address] | | | [place] [address] | + + + | Home Phone | | + + + | Preferred Language | Unknown | + + + | Marital Status | | + + + | Sikhism Affiliation | 1013 | + + + | Race | Unknown | + + + | Ethnic Group | Unknown | + + + Author + + + | Author | [facility] | + + + | Organization | [facility] | + + + | Address | Unknown | + + + | Phone | Unavailable | + + + Support + + +---------+ + | Name | Relationship | Address | Phone | + + +---------+ + | Sebastien Champion | ECON | Unknown | | + + +---------+ + Care Team Providers + +------+ + | Care Pulp Press Tender Name | Role | Phone | + +------+ + | Maria Vieira PA-C | PCP | | + +------+ + Encounter Details +--------+---------+ + + + | Date | Type | Department | Care Team | Description | +--------+---------+ + + + | 06/07/ | Office | [facility] | Marni Espinal, | Exertional shortness | | 2019 | Visit | Cardiothoracic | [address] | of breath (Primary | | | | Surgery [address] | [facility] | Dx); Other emphysema | | | | [address] | [place] [address] | ([facility]); Lung bullae | | | | [place], [place] | [phone] | ([facility]) | | | | [address] | | | | | | [phone] | | | +--------+---------+ + + + [...] + + + | Blood Pressure | 144/99 | 06/07/2018 10:54 AM PST | + + + + | Pulse | 94 | 06/07/2018 10:54 AM PST | + + + + | Temperature | 36.5 C (97.7 F) | 06/07/2018 10:54 AM PST | + + + + | Respiratory Rate | 20 | 06/07/2018 10:54 AM PST | + + + + | Oxygen Saturation | 97% | 06/07/2018 10:54 AM PST | + + + + | Inhaled Oxygen | - | - | | Concentration | | | + + + + | Weight | 104.3 kg (230 lb) | 06/07/2018 10:54 AM PST | + + + + | Height | - | - | + + + + | Body Mass Index | 26.58 | 06/07/2018 10:54 AM PST | + + + + in this encounter Progress Notes Marni Espinal PA-C - 06/07/2018 11:30 AM PSTFormatting of this note may be different f rom the original. Cardiothoracic Surgery Outpatient Progress Note Pt: Mason Champion AGE/SEX: 62 y.o. male : 1955 SUBJECTIVE: Mr. Mason Champion underwent 1. Left thoracoscopy. 2. Resection of large left b brynn. on 05/[address] Limon. He presents today for their first postop visit. Still complai ns of some left sided chest wall pain, says gabapentin/tylenol/robaxin helps. Exacerbated wi th sneezing/coughing. Otherwise stable, no complaints. Breathing somewhat improved, walking daily. He reports no chest pain, sob, nausea, vomiting, fevers, chills, and has good post-operativ e pain control. He has an appointment with Primary Care Physician, Maria Vieira Visit Diagnoses and Associated Orders: Exertional shortness of breath Other emphysema (HCC) Lung bullae (HCC) Other orders - gabapentin (NEURONTIN) 300 MG capsule; Take 1 capsule by mouth 3 (three) times daily for 30 days. DATA: Scheduled Medications Current Outpatient Prescriptions on File Prior to Visit Medication Sig Dispense Refill acetaminophen (TYLENOL) 500 MG tablet Take 2 tablets by mouth every 8 (eight) hours. 30 tablet 0 albuterol (PROVENTIL HFA;VENTOLIN HFA) 108 (90 Base) MCG/ACT inhaler Inhale 2 puffs int o the lungs. bisoprolol (ZEBETA) 10 MG tablet Take 1 tablet by mouth daily. 30 tablet 11 budesonide-formoterol (SYMBICORT) 160-4.5 MCG/ACT inhaler Inhale 2 puffs into the lungs 2 (two) times daily. 1 Inhaler 12 methocarbamol (ROBAXIN) 500 MG tablet Take 1 tablet by mouth 3 (three) times daily as n eeded for up to 30 days. 180 tablet 0 omeprazole (PRILOSEC) 20 MG capsule Take 20 mg by mouth. warfarin (COUMADIN) 4 MG tablet Take 6 mg by mouth daily. [DISCONTINUED] gabapentin (NEURONTIN) 300 MG capsule Take 1 capsule by mouth 3 (three) times daily for 30 days. 90 capsule 0 [DISCONTINUED] tamsulosin (FLOMAX) 0.4 MG capsule Take 1 capsule by mouth After dinner . 30 capsule 1 No current facility-administered medications on file prior to visit. Review of Systems: General ROS: Negative: fever, chill, malaise. Hematological and Lymphatic ROS: Negative: bleeding problems, bruising, night sweats or shobha ght loss Cardiovascular ROS: Negative: chest pain, dyspnea on exertion, edema, irregular heartbeat, loss of consciousness, murmur, orthopnea, palpitations, paroxysmal nocturnal dyspnea, rapid heart rate or shortness of breath Respiratory ROS: Negative: cough, hemoptysis, shortness of breath, sputum changes, tachypne a or wheezing Gastrointestinal ROS: Negative: abdominal pain, appetite loss, blood in stools, constipatio n, gas/bloating, melena, nausea/vomiting Genito-Urinary ROS: Negative: dysuria and hematuria. Musculoskeletal ROS: Negative: gait disturbance Neurological ROS: Negative: behavioral changes, confusion, dizziness, headaches, memory lo ss, numbness/tingling Psychological ROS: Negative: anxiety, depression Dermatological ROS: Negative: discharge, erythema, warmth or inflammation on or around the incision sites. OBJECTIVE: Vital Signs: BP (!) 144/99 (Patient Position: Sitting) | Pulse 94 | Temp 97.7 F (36.5 C) (Temporal ) | Resp 20 | Wt 104.3 kg (230 lb) | SpO2 97% | BMI 26.58 kg/m Physical Exam: GENERAL: The patient is A&O x3, NAD. NEURO: PERRLA, EOMI; no facial asymmetry, speech normal, moves all extremities well. HEENT: Sclerae clear, nonicteric; oral mucosa moist and pink w/o ulcerations/lesions. HEART: irregular, no murmur, rub, or gallop noted. LUNGS: Lungs CTA b/l w/o wheezing, crackles, or rhonchi. ABDOMEN: Soft, nondistended, nontender. BS are active. EXTREMITIES: Warm and well-perfused, no edema, no clubbing or cyanosis noted. SKIN: Clean, dry, intact. No evidence of erythema, discharge, or dehiscence. ASSESSMENT & PLAN: S/p LVATS bullae resection CXR 06/06 reviewed, no PTX Path reviewed with patient, no malignancy or atypia Needs to make an appt with Dr Foote for continued f/u and care Primary Care: Patient to follow up as planned with Primary Care Physician Patient was instructed to call our office for any new pain, redness, swelling, discharge from incisions, or fever or acute onset of SOB or ARGUELLES or severe Left chest wall pain 1 sutures were removed during this office visit. Medications were discussed: refill gabapentin sent no other changes No lifting > 15lbs 2 weeks postop. Advised not to lift > 50lbs or strain to lift heavy l oads, do not strain to have BM in order to decreased risk of PTX in future. F/u PRN All medications were reviewed during this examination. Specific follow-up and emergency instructions have been provided and the patient has verbal ized understanding to all instructions. The patient has been seen, recent labs/imaging and the plan discussed with the attending pr irma, Dr. Limon. Marni Espinal PA-C 06/07/2018 in this encounter Plan of Treatment +--------+---------+ + + + | Date | Type | Specialty | Care Team | Description | +--------+---------+ + + + | 08/05/ | Office | Pulmonology | Tristian Foote MD | | | 2018 | Visit | | [address] | | | | | | [place] [address] | | | | | | [phone] | | | | | | | | +--------+---------+ + + + | 08/15/ | Office | Cardiology | LeonardomonicaSarai ashton | | | 2018 | Visit | | [address] | | | | | | [address] | | | | | | [place] [address] | | | | | | [phone] | | | | | | | | +--------+---------+ + + + | 08/19/ | Office | General Surgery | Michele Motta, | | | 2018 | Visit | | MD Donna DEE | | | | | | [address] [facility], | | | | | | [place] [address] | | | | | | [phone] | | | | | | | | +--------+---------+ + + + as of this encounter Visit Diagnoses + + | Diagnosis | + + | Exertional shortness of breath - Primary | + + | Shortness of breath | + + | Other emphysema (HCC) | + + | Other emphysema | + + | Lung bullae (HCC) | + + | Emphysematous bleb | + +"
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
--- OUTSIDE RECORDS SUMMARY | ~2018-08-01 | XMS | Clinical Summary ---
Demographics + + + | Address | [address] | | | [place] [address] | + + + | Home Phone | | + + + | Preferred Language | Unknown | + + + | Marital Status | | + + + | Rastafarian Affiliation | 1013 | + + + | Race | Unknown | + + + | Ethnic Group | Unknown | + + + Author + + + | Author | [facility] | | | and [place] | + + + | Organization | [facility] | | | and [place] | + + + | Address | Unknown | + + + | Phone | Unavailable | + + + Support + + +---------+ + | Name | Relationship | Address | Phone | + + +---------+ + | Sebastien,Cameorn | ECON | Unknown | | + + +---------+ + | Akira Crowe | ECON | Unknown | | + + +---------+ + | Sebastien Champion | ECON | Unknown | | + + +---------+ + Care Team Providers + +------+ + | Care Clinical Research Specialist Name | Role | Phone | + +------+ + | Landen Schaffer MD | PP | | + +------+ + Allergies No Known Allergies Medications + + + +---------+------+------+-------+ | Medication [...] | + + + +---------+------+------+-------+ Active Problems Not on file Family History + + +------+ + | Medical History | Relation | Name | Comments | + + +------+ + | Breast cancer | | | family history | + + +------+ + | COPD | | | family history | + + +------+ + | Lung cancer | | | family history | + + +------+ + + +------+--------+ + | Relation | Name | Status | Comments | + +------+--------+ + Social History + +-------+ +--------+------+ | [...] recent travel history available. | + + Plan of Treatment + + [...] Influenza | | 02/02/2017 | | | (Season Ended) | 9 | | | + + + + + Results Not on filefrom Last 3 Months Insurance + +--------+ +--------+ +---------+--------+ | Payer | Benefi | Subscriber | Effect | Phone | Address | Type | | | t Plan | ID | sera | | | | | | / | | Dates | | | | | | Group | | | | | | + +--------+ +--------+ +---------+--------+ | MEDICARE | [facility] | [id number] | 08/18/19 | [phone] | | Medica [...] | Self [birth year] | [address] | | [address]ishnu | al/Fam | | 1956 | [phone] | [place] | | | jeanne | | | 0 (Home) | [address] | + +--------+ +--------+ + + Advance Directives Patient has advance care planning documents on file. For more information, please contact:[facility] [place] [address]"
--- OUTSIDE RECORDS SUMMARY | ~2018-08-01 | XMS | Encounter Summary ---
Demographics + + + | Address | [address] | | | [place] [address] | + + + | Home Phone | | + + + | Preferred Language | Unknown | + + + | Marital Status | | + + + | Sabianism Affiliation | 1013 | + + + | Race | Unknown | + + + | Ethnic Group | Unknown | + + + Author + + + | Author | [facility] | + + + | Organization | [facility] | + + + | Address | Unknown | + + + | Phone | Unavailable | + + + Support + + +---------+ + | Name | Relationship | Address | Phone | + + +---------+ + | Sebastien Champion | ECON | Unknown | | + + +---------+ + Care Team Providers + +------+ + | Care Publications Sales Representative Name | Role | Phone | + +------+ + | Maria Vieira PA-C | PCP | | + +------+ + Encounter Details +--------+ + + + + | Date | Type | Department | Care Team | Description | +--------+ + + + + | 05/10/ | Hospital | [facility] | Samson Limon MD | | | 2019 | Encounter | [facility] | [address] | | | | | Preadmission | [place] [address] | | | | | Services [address] | [phone] | | | | | [place], [place] | | | | | | [address] | [...] + + + | Blood Pressure | 146/95 | 05/10/2018 12:55 PM PST | + + + + | Pulse | 65 | 05/10/2018 12:55 PM PST | + + + + | Temperature | - | - | + + + + | Respiratory Rate | 16 | 05/10/2018 12:55 PM PST | + + + + | Oxygen Saturation | 98% | 05/10/2018 12:55 PM PST | + + + + | Inhaled Oxygen | - | - | | Concentration | | | + + + + | Weight | 102.2 kg (225 lb 5 | 05/10/2018 12:55 PM PST | | | oz) | | + + + + | Height | 198.1 cm (6' 6") | 05/10/2018 12:55 PM PST | + + + + | Body Mass Index | 26.04 | 05/10/2018 12:55 PM PST | + + + + in this encounter Discharge Instructions Bernarda Anderson RN - 05/10/2018Formatting of this note may be different from the origin al. Surgical Diagnosis of Chest, Lung Problems You ve been told you need a surgical procedure to diagnose a problem in your chest or esequiel g. Surgical procedures are used to get large samples of tissue or lymph nodes from the chest or lung. These samples allow for more complete testing. Surgical procedures typically requi re incisions and may take some time to recover from. With mediastinoscopy, the scope enters the mediastinum through an incision in the neck. A sample of mass can be taken using video-assisted thoracic surgery (VATS). In some cases, a mass or part of the lung is removed if cancer is found. Mediastinoscopy Mediastinoscopy allows the doctor to see inside the area between the two lungs (mediastinum ) and remove large lymph node samples (biopsy). First, an incision is made at the base of th e neck. A scope is passed through the incision down into the mediastinum. Then a biopsy inst rument is passed through the center of the scope. Once the lymph node sample is taken, the i nstrument is pulled up through the scope. The sample is then tested for cancer or other prob lems. Video-assisted thoracic surgery Video-assisted thoracic surgery (VATS)allows the doctor to see inside the chest and take tissue samples. VATS is done using an instrument with a light, lens, and camera (thoroscope) . First, an incision is made on the side of the chest. The scope is passed through the incis ion into the space between the lungs and chest wall (pleural space). Images of inside the ch est are sent to a monitor viewed by the doctor. Other small incisions are made for instrumen ts to pass through and remove tissue. VATS can also help diagnose and stage cancer. Thoracotomy In certain cases, open surgery is needed to diagnose and treat a lung or chest problem. If so, incisions are made and the chest is opened. This allows the doctor to see inside the naa st and take a sample of lung tissue or a mass. Preparing for the procedure Before your procedure, do the following: Follow your doctor s instructions about eating and drinking. Tell your doctor about the medicines and herbal supplements you take. You may need to st op taking certain medicines before the procedure, especially aspirin, warfarin, or other blo od thinners. Discuss any allergies and health problems with your doctor. Tell your doctor if you are or could be . During the procedure You receive general anesthesia(medicine to make you sleep) during the procedure. Once you are asleep, incisions are made in the neck, chest, side, or back to allow the doctor to vie w the area or take a biopsy if needed. A tube placed in the chest during surgery drains flui d. Risks and complications Hoarseness Bleeding Infection Abnormal heart rate Collapsed lung Injury to other structures in the chest Respiratory failure (rare) Nerve damage (rare) Date Last Reviewed: 05/20/201619991043-1608 [employer]. [address] [place] [address]. All righ ts reserved. This information is not intended as a substitute for professional medical care. Always follow your healthcare professional's instructions. Thoracotomy Possible incision site for thoracotomy. Thoracotomy is surgery used to diagnose and treat certain lung problems. The surgeon makes a cut (incision) through the skin, usually between the ribs, or may remove a rib. He or she then cuts through the lining around the lungs. He or she may take a sample of lung tissue (b iopsy). Or the surgeon may take out a tumor or mass, or part or all of a lung. Sometimes [facility] use thoracotomy to operate on the esophagus or for certain heart procedures. Preparing for your surgery Ask your doctor any questions you have about the procedure. Have blood tests or other tests that your doctor suggests. Ask your doctor about donating your own blood in advance of the procedure. If you smoke, stop right away. Tell your doctor about any medicines you're taking, including aspirin. Ask if you should stop taking them. Also mention any vitamins, herbs, or other supplements you take. Don't eat or drink anything after midnight the night before your procedure, or as direct ed. The surgery The anesthesiologist can discuss the types of medicines you'll be given during the surge ry and answer your questions. Once you're asleep, you're put in a comfortable position on yo ur side and covered with sterile drapes. The lung to be operated on is deflated. A breathing tube helps your other lung continue working. The surgeon can look at the deflated lung and do any needed surgery. In some cases, the surgeon may remove part or all of the lung and nearby lymph nodes. Your surgeon makes an incision across your side. He or she separates your rib cage or re moves a rib to reach your lungs. When the procedure is finished, the surgeon puts one or more tubes in your chest tempora rily. These are to drain fluid and air. The surgeon then repairs the rib cage. He or she closes the muscle and skin with sutures or lola. You will wake up in a recovery area, or sometimes in the intensive care unit. Your breat isa tube is generally taken out before or just after you wake up. Risks and possible complications Risks of general anesthesia Wound infection Bleeding Lung infection (pneumonia) Air leak through the lung wall. This requires a longer hospital stay or another operatio n. Worsening of any existing heart problems Blockage of a blood vessel in the leg (deep vein thrombosis) with potential for blood cl ots in the lung (pulmonary embolism) Date Last Reviewed: 01/18/201619998461-2408 [employer]. [address] [place] [address]. All righ ts reserved. This information is not intended as a substitute for professional medical care. Always follow your healthcare professional's instructions. Thoracoscopy Possible incision sites for thoracoscopy. Thoracoscopy is also called video-assisted thoracoscopysurgery (VATS). It s often used to repair a collapsed lung. It s also used to look at, biopsy, and stage a mass in the esequiel g. Or it may be needed to drain fluid from around the lungs. An entire lobe or entire lung c an be removed during this surgery. During this surgery, your surgeon can look into your ches t. He or she will then do procedures through small incisions in the chest wall. Sometimes a thoracoscopy can t be used for the whole surgery. In this case, you may need an open surge ry (thoracotomy). Preparing for your surgery Ask any questions you have about the surgery. Have blood tests or other tests that your doctor orders. If you smoke, stop right away. Tell your doctor about any medicines you re taking. This includes aspirin. Ask if you should stop any of them. Mention any vitamins, herbs, or other supplements you take. Don t eat or drink anything after midnight the night before your surgery, or as direct ed. Arrive at the hospital on time the day of your surgery. The surgery The anesthesiologist gives you general anesthesia. This lets you sleep and keeps you hayley e from pain during surgery. Once you re asleep, you ll be moved to lie on your side. The surgeon will make several small incisions in your side. The surgeon puts a thin tube (catheter) through one of the incisions. It contains a tiny camera. This camera allows the surgeon to view your lungs on a video monitor. The surgeon p uts surgical tools through the other incisions. When the procedure is done, the surgeon may put one or more tubes in your chest temporar jeanne. These drain fluid and air. The incisions are then closed with sutures or lola. Risks and complications VATS is generally safe. But like any surgery, it has a small risk of complications. Complic ations could include: Wound infection Air leak through the lung wall. This requires a longer hospital stay or another operatio n. Bleeding Pain or numbness at the incision site Bruising of the nerves under the ribs (intercostal nerve syndrome). This causes pain at the incision site for several weeks or months. Lung infection (pneumonia) The surgery cannot be completed as planned and a large incision is used Date Last Reviewed: 01/18/201619990599-4979 [employer]. [address] [place] [id number]. All [facility] ts reserved. This information is not intended as a substitute for professional medical care. Always follow your healthcare professional's instructions. Outpatient Prescriptions Marked as Taking for the 05/10/18 encounter (Hospital Encounter) [facility] ROOM 2 Medication Sig INSTRUCTIONS albuterol (PROVENTIL HFA;VENTOLIN HFA) 108 (90 Base) MCG/ACT inhaler Inhale 2 puffs int o the lungs. TAKE day of procedure bisoprolol (ZEBETA) 10 MG tablet Take 1 tablet by mouth daily. TAKE day of procedure budesonide-formoterol (SYMBICORT) 160-4.5 MCG/ACT inhaler Inhale 2 puffs into the lungs 2 (two) times daily. TAKE day of procedure omeprazole (PRILOSEC) 20 MG capsule Take 20 mg by mouth. TAKE day of procedure warfarin (COUMADIN) 4 MG tablet Take 50 mg by mouth once a week. as instructed per laura or Braxton in this encounter Medications at Time of Discharge + + +---------+---------+ + + | Medication | Sig. | Disp. | Refills | Start | End Date | | | | | | Date | | + + +---------+---------+ + + | acetaminophen | Take 2 tablets by | 30 | 0 | 02//20 | | | (TYLENOL) 500 MG | [...] 8 | tablet | | 19 | 9 | | tablet | (eight) hours for 10 | | | | | | | [...] | | | | | [place] [address] | | | | | | [phone] | | | | | | | | +--------+---------+ + + + | 08/15/ | Office | Cardiology | Sarai Arce | | | 2018 | Visit | | [address] | | | | | | [address] | | | | | | [place] [address] | | | | | | [phone] | | | | | | | | +--------+---------+ + + + | 08/19/ | Office | General Surgery | Michele Motta, | | | 2018 | Visit | | MD Donna [address]INTERS | | | | | | [address] [place], | | | | | | [place] [address] | | | | | | [phone] | | | | | | | | +--------+---------+ + + + as of this encounter Procedures + +--------+ + + + | Procedure Name | Priori | Date/Time | Associated Diagnosis | Comments | | | ty | | | | + +--------+ + + + | APTT | Timed | 05/10/2018 | | Results for this | | | | 1:06 PM | | procedure are in the | | | | PST | | results section. | + +--------+ + + + | PROTIME-INR | Timed | 05/10/2018 | | Results for this | | | | 1:06 PM | | procedure are in the | | | | PST | | results section. | + +--------+ + + + | CBC W/AUTO DIFF | Timed | 05/10/2018 | | Results for this | | (REFLEX TO MANUAL) | | 1:06 PM | | procedure are in the | | | | PST | | results section. | + +--------+ + + + | BASIC METABOLIC | Timed | 05/10/2018 | | Results for this | | PANEL | | 1:06 PM | | procedure are in the | | | | PST | | results section. | + +--------+ + + + | MRSA BY PCR | Timed | 05/10/2018 | | Results for this | | | | 1:05 PM | | procedure are in the | | | | PST | | results section. | + +--------+ + + + | TYPE AND SCREEN | Timed | 05/10/2018 | | Results for this | | | | 1:04 PM | | procedure are in the | | | | PST | | results section. | + +--------+ + + + in this encounter Results Protime-INR (05/10/2018 1:06 PM) + + + + + | Component | Value | Ref Range | Performed At | + + + + + | INR | 2.9Comment: REFERENCE | | [facility] | | | RANGE:0.9 - | [...] | | | | | performed at [facility];[address] | | | | | [address];[place] | | | | | [address] | | | + + + + + + + | Specimen | + + | Blood | + + + + + + + | Performing | Address | City/State/Zipcode | Phone Number | | Organization | | | | + + + + + | [facility] | [address] | [place] [address] | | + + + + + aPTT (05/10/2018 1:06 PM) + + + + + | Component | Value | Ref Range | Performed At | + + + + + | APTT | 37 (H)Comment: Testing | 23 - 32 seconds | [facility] | | | performed at [facility];[address] | | | | | [address];[place] | | | | | [address] | | | + + + + + + + | Specimen | + + | Blood | + + + + + + + | Performing | Address | City/State/Zipcode | Phone Number | | Organization | | | | + + + + + | [facility] | [address] | [place] [address] | | + + + + + Basic metabolic panel (05/10/2018 1:06 PM) + + + + + | Component | Value | Ref Range | Performed At | + + + + + | SODIUM | 141 | 135 - 145 mmol/L | [facility] | | | | | LABORATORY | + + + + + | POTASSIUM | 4.4 | 3.5 - 4.9 mmol/L | [facility] | | | | | LAB[facility]AT[facility] | + + + + + | CHLORIDE | 105 | 99 - 109 mmol/L | [facility] | | | | | LABORATORY | + + + + + | CO2 | 26 | 23 - 32 mmol/L | [facility] | | | | | LABORATORY | + + + + + | ANION GAP AGAP | 14 | 5 - 20 mmol/L | [facility] | | | | | LABORATORY | + + + + + | GLUCOSE | 86 | 65 - 99 mg/dL | [facility] | | | | | LABORAT[facility] | + + + + + | BUN | 14 | 8 - 25 mg/dL | [facility] | | | | | LABORATORY | + + + + + | CREATININE | 1.1 | 0.70 - 1.30 mg/dL | [facility] | | | | | [facility] | + + + + + | BUN/CREAT | 13 | | [facility] | | | | | LABORATORY | + + + + + | CALCIUM | 8.5 | 8.5 - 10.5 mg/dL | [facility] | | | | | LABORATORY | + + + + + | EGFR | >60Comment: GFR <60: | >60 mL/min/1.73m2 | [facility] | | | CHRONIC KIDNEY DISEASE, | [...] | | | | | performed at [facility], [address] | | | | [address] [place], | | | | | [place] [address] | | | + + + + + + + | Specimen | + + | Blood | + + + + + + + | Performing | Address | City/State/Zipcode | Phone Number | | Organization | | | | + + + + + | [facility] | [address] | [place] [address] | [phone] | | LABORATORY | [address] | | | + + + + + CBC W/Auto Diff (Reflex to Manual) (05/10/2018 1:06 PM) + + + + + | Component | Value | Ref Range | Performed At | + + + + + | WBC | 5.61 | 3.80 - 11.00 K/uL | [facility] | | | | | LABORATORY | + + + + + | RBC | 4.87 | 4.20 - 5.70 M/uL | [facility] | | | | | LABORATORY | + + + + + | HGB | 15.6 | 13.2 - 17.0 g/dL | [facility] | | | | | LABORATORY | + + + + + | HCT | 46.8 | 39.0 - 50.0 % | [facility] | | | | | LABORATORY | + + + + + | MCV | 96.0 | 80.0 - 100.0 fl | [facility] | | | | | LABORATORY | + + + + + | MCH | 32.0 | 27.0 - 34.0 pg | [facility] | | | | | LABORATORY | + + + + + | MCHC | 33.3 | 32.0 - 35.5 g/dL | [facility] | | | | | LABORATORY | + + + + + | RDW SD | 46.8 | 37 - 53 fl | [facility] | | | | | LAB[facility]ATORY | + + + + + | PLT | 173 | 150 - 400 K/uL | [facility] | | | | | LABORATORY | + + + + + | MPV | 10.4 | fl | [facility] | | | | | LAB[facility]AT[facility] | + + + + + | DIFF TYPE | AUTOMATED | | [facility] | | | | | LAB[facility]ATORY | + + + + + | NEUTROPHILS | 55.37 | % | [facility] | | | | | LAB[facility]AT[facility] | + + + + + | LYMPHOCYTES | 30.00 | % | [facility] | | | | | LAB[facility]AT[facility] | + + + + + | MONOCYTES | 11.02 | % | [facility] | | | | | LABORATORY | + + + + + | EOSINOPHILS | 2.35 | % | [facility] | | | | | LABORATORY | + + + + + | BASOPHILS | 1.26 | % | [facility] | | | | | LABORATORY | + + + + + | NEUTROPHILS ABS | 3.11 | 1.90 - 7.40 K/uL | [facility] | | | | | LABORATORY | + + + + + | LYMPHOCYTES ABS | 1.68 | 1.00 - 3.90 K/uL | [facility] | | | | | LABORATORY | + + + + + | MONOCYTES ABS | 0.62 | 0.00 - 0.80 K/uL | [facility] | | | | | LABORATORY | + + + + + | EOSINOPHILS ABS | 0.13 | 0.00 - 0.50 K/uL | [facility] | | | | | LABORATORY | + + + + + | BASOPHILS ABS | 0.07Comment: Testing | 0.00 - 0.10 K/uL | [facility] | | | performed at [facility], [address] | | LABORATORY | | | [address], | | | | | [place] [address] | | | + + + + + + + | Specimen | + + | Blood | + + + + + + + | Performing | Address | City/State/Zipcode | Phone Number | | Organization | | | | + + + + + | [facility] | [address] | [place] [address] | [phone] | | LABORATORY | [address] | | | + + + + + MRSA by PCR (05/10/2018 1:05 PM) + + + + + | Component | Value | Ref Range | Performed At | + + + + + | SOURCE | NARES(NOSE) | | [facility] | + + + + + | MRSA PCR | NEGATIVEComment: Testing | NEGATIVE | [facility] | | | performed at [facility];[address] | | | | | [address];[place] | | | | | [address] | | | + + + + + + + | Specimen | + + | Nasopharyngeal - | | Nares(Nose) | + + + + + + + | Performing | Address | City/State/Zipcode | Phone Number | | Organization | | | | + + + + + | [facility] | [address] | [place] [address] | | + + + + + Type and screen (05/10/2018 1:04 PM) + + + + + | Component | Value | Ref Range | Performed At | + + + + + | ABO/RH(D) | O POSITIVE | | [facility] | + + + + + | ANTIBODY SCREEN | NEGATIVETesting | | [facility] | | | performed at [facility];[address] | | | | | [address] [facility];[place], [place] | | | | | [address] | | | + + + + + + + | Specimen | + + | Blood | + + + + + + + | Performing | Address | City/State/Zipcode | Phone Number | | Organization | | | | + + + + + | [facility] | [address] | [place] [address] | | + + + + + in this encounter Visit Diagnoses Not on filein this encounter
--- OUTSIDE RECORDS SUMMARY | ~2018-08-01 | XMS | Encounter Summary ---
Demographics + + + | Address | [address] | | | [place] [address] | + + + | Home Phone | | + + + | Preferred Language | Unknown | + + + | Marital Status | | + + + | Congregational Affiliation | 1013 | + + + | Race | Unknown | + + + | Ethnic Group | Unknown | + + + Author + + + | Author | [facility] | + + + | Organization | [facility] [employer] [facility] | + + + | Address | Unknown | + + + | Phone | Unavailable | + + + Support + + +---------+ + | Name | Relationship | Address | Phone | + + +---------+ + | Sebastien Champion | ECON | Unknown | | + + +---------+ + Care Team Providers + +------+ + | Care Oil Well Engineer Name | Role | Phone | + [...] Description | +--------+---------+ + + + | 06/22/ | Surgery | [facility] | Licha Motta, | ESOPHAGOGASTRODUODEN | | 2019 | | [facility] | [address] | OSCOPY | | | | Endoscopy [address] | [address] [facility] | | | | | Blvd [place], [place] | [place] [address] | | | | | [address] | [phone] | | | | | | | [...] note may be different from the original. [facility] Service: General Surgery Brief Post-op Discharge Note [...] on file. Follow up: Licha Motta MD [address] [place] [id number] In 1 week for routine post operative visit. Maria Vieira PA-C [address] [facility] [address] Medication List CONTINUE taking these medications [...] event of an emergency. Don t p maynor on making any important decisions or attending [...] questions or problems. Our office number is [phone] in this encounter Medications at Time of [...] [address] | | | | | | [place] [address] | | | | | | [phone] | | | | | | | | +--------+---------+ + + + | 08/15/ | Office | Cardiology | LeonardomonicaSarai ashton | | | 2018 | Visit | | [address] | | | | | | [address] | | | | | | [place] [address] | | | | | | [phone] | | | | | | | | +--------+---------+ + + + | 08/19/ | Office | General Surgery | Licha Motta, | | | 2018 | Visit | | MD [address] | | | | | | [address] [facility] | | | | | | [place] [address] | | | | | | [phone] | | | | | | | [...] | INR | 1.1Comment: REFERENCE | | [facility] [...] | | | | | performed at [facility];[address] | | | | | [facility];[place], [place] | | | | | [address] | | | + + + + + + + | Specimen | + + | Blood | + + + + + + + | Performing | Address | City/State/Zipcode | Phone Number | | Organization | | | | + + + + + | [facility] | [address] | [place] [address] | | + + + + + [...]
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
--- OUTSIDE RECORDS SUMMARY | ~2018-08-01 | XMS | Clinical Summary ---
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 most recent of 2 results within the time period is included. + + + | Narrative | Performed At | + + + | This is a non-reportable procedure without a radiologist report and | [facility] | | is used for image storage only. Please review the OR procedure | RADIOLOGY | | report for details on the procedure. | | + + + + + + + + | Performing | Address | City/State/Zipcode | Phone Number | | Organization | | | | + + + + + | [facility] | [address] | [place] [address] | | + + + + + POC arterial CG4+ (07/29/2018 7:16 PM) + + + + + | Component | Value | Ref Range | Performed At | + + + + + | pH, Art | 7.259 (L) | 7.350 - 7.450 | [facility] | + + + + + | POC PCO2 | 51 (H) | 35 - 45 mmHg | [facility] | + + + + + | POC p02 | 173 (H) | 80 - 105 mmHg | [facility] | + + + + + | POC LACTATE | 1.11 | 0.36 - 1.25 mmol/L | [facility] | + + + + + | POC HCO3 | 23 | 22 - 26 mmol/L | [facility] | + + + + + | POC TCO2 | 24 | 23 - 27 mEq/L | [facility] | + + + + + | POC BASE DEFICIT | 4 (H) | 0.0 - 2.0 mmol/L | [facility] | + + + + + | POC S02 | 99 (H)Comment: Testing | 95 - 98 % | [facility] | | | performed at [facility];[address] | | | | | [address];[place] | | | | | [address] | | | + + + + + + + + + + | Performing | Address | City/State/Zipcode | Phone Number | | Organization | | | | + + + + + | [facility] | [address] | [place] [address] | | + + + + + POC arterial CG8+ (07/29/2018 7:10 PM)Only the most recent of 3 results within the time jose antonio chamberlain is included. + + + + + | Component | Value | Ref Range | Performed At | + + + + + | pH, Art | 7.259 (L) | 7.350 - 7.450 | [facility] | + + + + + | POC PCO2 | 48 (H) | 35 - 45 mmHg | [facility] | + + + + + | POC p02 | 161 (H) | 80 - 105 mmHg | [facility] | + + + + + | POC HCO3 | 22 | 22 - 26 mmol/L | [facility] | + + + + + | POC TCO2 | 23 | 23 - 27 mEq/L | [facility] | + + + + + | POC BASE DEFICIT | 5 (H) | 0.0 - 2.0 mmol/L | [facility] | + + + + + | POC S02 | 99 (H) | 95 - 98 % | [facility] | + + + + + | POC SODIUM | 140 | 135 - 145 mEq/L | [facility] | + + + + + | POC POTASSIUM | 5.0 | 3.5 - 5.0 mEq/L | [facility] | + + + + + | POC IONIZED CALCIUM | 1.11 (L) | 1.12 - 1.32 mmol/L | [facility] | + + + + + | POC GLUCOSE | 144 (H) | 65 - 99 mg/dL | [facility] | + + + + + | POC HCT | 46 | 40.0 - 50.0 % | [facility] | + + + + + | POC HGB | 15.6Comment: Testing | 13.7 - 16.7 g/dL | [facility] | | | performed at [facility];[address];[place] | | | | | [address] | | | + + + + + + + + + + | Performing | Address | City/State/Zipcode | Phone Number | | Organization | | | | + + + + + | [facility] | [address] | [place] [address] | | + + + + + Protime-INR (07/29/2018 11:16 AM)Only the most recent of 5 results within the time period i s included. + + + + + | Component | Value | Ref Range | Performed At | + + + + + | INR | 1.2Comment: REFERENCE | | [facility] | | | RANGE:0.9 - [...] | | | | | performed at [facility];[address] | | | | | [address];[place], [place] | | | | | [address] | | | + + + + + + + | Specimen | + + | Blood | + + + + + + + | Performing | Address | City/State/Zipcode | Phone Number | | Organization | | | | + + + + + | [facility] | [address] | [place] [address] | | + + + + + Type and screen (07/29/2018 10:44 AM)Only the most recent of 3 results within the time raúl od is included. + + + + + | Component | Value | Ref Range | Performed At | + + + + + | ABO/RH(D) | O POSITIVE | | [facility] | + + + + + | ANTIBODY SCREEN | NEGATIVE | | [facility] | + + + + + | ARM BAND NUMBER | [id number] | | [facility] | | | performed at [facility];[address];[place] | | | | | [address] | | | + + + + + + + | Specimen | + + | Blood | + + + + + + + | Performing | Address | City/State/Zipcode | Phone Number | | Organization | | | | + + + + + | [facility] | [address] | [place] [address] | | + + + + + MRSA by PCR (07/21/2018 5:18 PM)Only the most recent of 2 results within the time period i s included. + + + + + | Component | Value | Ref Range | Performed At | + + + + + | SOURCE | NARES(NOSE) | | [facility] | + + + + + | MRSA PCR | NEGATIVEComment: Testing | NEGATIVE | [facility] | | | performed at [facility];[address] | | | | | [address];[place], [place] | | | | | [address] | | | + + + + + + + | Specimen | + + | Nasopharyngeal - | | Nares(Nose) | + + + + + + + | Performing | Address | City/State/Zipcode | Phone Number | | Organization | | | | + + + + + | [facility] | [address] | [place] [address] | | + + + + + EKG STANDARD 12 LEAD (07/21/2018 5:16 PM)Only the most recent of 3 results within the time period is included. + + + + + | Component | Value | Ref Range | Performed At | + + + + + | Ventricular Rate | 83 | BPM | [facility] | + + + + + | Atrial Rate | 72 | BPM | [facility] | + [...] + + + + | Calculated R [place] | 56 | degrees | [facility] | + + + + + | Calculated T [place] | 1 | degrees | [facility] | + + + + + | Diagnosis | Atrial fibrillationRight | | [facility] | | | bundle branch | [...] | + + + + + | [facility] | [address] | [place] [address] | | + + + + + X-ray chest 2 view frontal & lateral (06/06/2018 12:12 PM)Only the most recent of 2 results within the time period is included. + + + | Impressions | Performed At | + + + | 1. Emphysematous change. 2. Large bulla in the left lung base again | [facility] | | defined on the lateral film. 3. Strandy atelectasis or scar in the | RADIOLOGY | | lung bases again noted. 4. Small hiatal hernia. Signed by: Evgeny | | | Jesus Sign Date/Time: 06/06/2018 [...] | + + + + + | [facility] | [address] | [place] [address] | | + + + + + Magnesium (05/24/2018 3:59 AM)Only the most recent of 2 results within the time period is included. + + + + + | Component | Value | Ref Range | Performed At | + + + + + | MAGNESIUM | 2.2Comment: Testing | 1.7 - 2.4 mg/dL | [facility] | | | performed at [facility], [address] | LABORATORY | | | [address], | | | | | [place] [address] | | | + + + + + + + | Specimen | + + | Blood | + + + + + + + | Performing | Address | City/State/Zipcode | Phone Number | | Organization | | | | + + + + + | [facility] | [address] | [place] [address] | [phone] | | LABORATORY | [address]vd[address] | | | + + + + + Pathology histology - tissue (05/23/2018 11:00 AM) + + | Specimen | + + | Tissue | + + + + + | Narrative | Performed At | + + + | SPECIMEN(S): A LEFT LUNG BULLAE SPECIMEN SOURCE: A. LEFT LUNG | [facility] | | BULLAE CLINICAL HISTORY: Left lung [...] | lung parenchyma is pink and spongy. Marine Meteorologist sections are | | | submitted in [...] component was | | | performed by [facility], [address] [place] [address] | | | (Machine Cementer: Maranda Brown MD; IA# [id number]). | | | Professional interpretation was performed by [facility] | | | [facility], [facility], [address] | | | [place] [address]. Diagnostician: Danny Delaney MD | | | Pathologist Electronically Signed 05/24/2018 | | + + + + +---------+ + + | Performing | Address | City/State/Zipcode | Phone Number | | Organization | | | | + +---------+ + + | [facility] | | | | + +---------+ + + aPTT (05/10/2018 1:06 PM) + + + + + | Component | Value | Ref Range | Performed At | + + + + + | APTT | 37 (H)Comment: Testing | 23 - 32 seconds | [facility] | | | performed at [facility];[address] | | | | | [address];[place], [place] | | | | | [address] | | | + + + + + + + | Specimen | + + | Blood | + + + + + + + | Performing | Address | City/State/Zipcode | Phone Number | | Organization | | | | + + + + + | [facility] | [address] | [place] [address] | | + + + + + from Last 3 Months Insurance + +--------+ +------+-------+ + | Payer | Benefi | Subscriber | Type | Phone | Address | | | t Plan | ID | | | | | | / | | | | | | | Group | | | | | + +--------+ +------+-------+ + | MEDICARE | MEDICA | [id number] | | | [address] | | | RE | | | | [place] [address] | | | [place] | | | | | | | AD | | | | | + +--------+ +------+-------+ + + +--------+ +--------+ + + | Guarantor Name | Accoun | Relation to | Date | Phone | Billing Address | | | t Type | Patient | of | | | | | | | | | | + +--------+ +--------+ + + | CATY CHAMPION | Person | Self [birth year] Home: | [address] | | [place] | [place] | | 1955 | [phone] [place] | | | jeanne | | | [phone] | [phone] | + +--------+ +--------+ + +
--- OUTSIDE RECORDS SUMMARY | ~2018-08-01 | XMS | Encounter Summary ---
Demographics + + + | Address | [address] | | | [place] [address] | + + + | Home Phone | | + + + | Preferred Language | Unknown | + + + | Marital Status | | + + + | Mormonism Affiliation | 1013 | + + + | Race | Unknown | + + + | Ethnic Group | Unknown | + + + Author + + + | Author | [facility] | + + + | Organization | [facility] | + + + | Address | Unknown | + + + | Phone | Unavailable | + + + Support + + +---------+ + | Name | Relationship | Address | Phone | + + +---------+ + | Sebastien Champion | ECON | Unknown | | + + +---------+ + Care Team Providers + +------+ + | Care Slasher Hand Name | Role | Phone | + +------+ + | Maria Vieira PA-C | PCP | | + +------+ + Reason for Visit Surgical (Routine) + + + + + + + | Status | Reason | Specialty | Diagnoses / | Referred By | Referred To | | | | | Procedures | Contact | Contact | + + + + + + + | Authorized | Specialty | Cardiothoraci | Diagnoses | Dary, | Limon, | | | Services | c Surgery | Lung | MD Tristian | MD Samson | | | Required | | disease, | [address] | | | | [address] | [address] | [address] | | | | | ([facility]) | [place], | [place], [place] | | | | | | [place] [address] | [address] Phone: | | | | | | Phone: | [phone] | | | | | | [phone] | Fax: | | | | | | Fax: | [phone] | | | | | | [phone] | | + + + + + + + Encounter Details +--------+ + + + + | Date | Type | Department | Care Team | Description | +--------+ + + + + | 05/10/ | Initial | [facility] | Samson Limon MD | Lung bullae (HCC) | | 2019 | consult | Cardiothoracic | [address] | (Primary Dx) | | | | Surgery [address] | [place] [address] | | | | | [address] | [phone] | | | | | [place], [place] | | | | | | [address] | | | | | | [phone] | | | +--------+ + + + [...] + + + | Blood Pressure | 136/97 | 05/10/2018 10:40 AM PST | + + + + | Pulse | 88 | 05/10/2018 10:40 AM PST | + + + + | Temperature | 36.7 C (98 F) | 05/10/2018 10:40 AM PST | + + + + | Respiratory Rate | 18 | 05/10/2018 10:40 AM PST | + + + + | Oxygen Saturation | 97% | 05/10/2018 10:40 AM PST | + + + + | Inhaled Oxygen | - | - | | Concentration | | | + + + + | Weight | 102.1 kg (225 lb) | 05/10/2018 10:40 AM PST | + + + + | Height | - | - | + + + + | Body Mass Index | 26 | 05/10/2018 10:40 AM PST | + + + + in this encounter Progress Notes Samson Limon MD - 05/10/2018 11:00 AM PSTFormatting of this note may be different from vero jacobs original. Service: Cardiothoracic Surgery Consult Note CHIEF COMPLAINT: Dyspnea History Obtained From: patient HISTORY OF PRESENT ILLNESS The patient is 62 y.o. male with significant past medical history of COPD, remote tobacco a buse, and atrial fibrillation(Coumadin), evaluated recently by Dr Foote for progressive dys pnea. Pulmonary functions tests show obstructive impairment with reduced diffusion capacity. CT imaging (02/11/18) shows a large left lower lobe bullae and a paraesophageal hernia. The patient had a cardiac work-up which included an echocardiogram and a nuclear stress test. T he stress test was negative. He is anticipating surgery for the hernia in June. We are aske d to evaluate the patient for the large bullae. He continues with progressive dyspnea. REVIEW OF SYSTEMS Review of Systems Constitutional: Positive for fatigue. Negative for activity change, chills and fever. HENT: Negative for hearing loss, nosebleeds, sore throat, tinnitus and voice change. Eyes: Negative for pain, discharge, redness and visual disturbance. Respiratory: Positive for shortness of breath. Negative for cough, chest tightness and whee zing. Cardiovascular: Positive for chest pain (chest wall). Negative for palpitations and leg swe lling. Gastrointestinal: Negative for abdominal distention, abdominal pain, anal bleeding, blood i n stool, constipation, diarrhea and nausea. Hep C-Treated Genitourinary: Negative for dysuria, frequency, hematuria and urgency. Musculoskeletal: Negative for arthralgias, back pain and neck stiffness. Skin: Negative for color change, pallor and wound. Neurological: Negative for dizziness, tremors, seizures, syncope, facial asymmetry, speech difficulty, weakness and light-headedness. Hematological: Negative for adenopathy. Does not bruise/bleed easily. Psychiatric/Behavioral: Negative for agitation, behavioral problems, confusion, sleep distu rbance and suicidal ideas. Past Medical History Diagnosis Date Asthma Atrial fibrillation (HCC) Chronic obstructive pulmonary disease (HCC) Esophageal hiatal hernia Hypertension Lung disease, bullous (HCC) 01/2018 Past Surgical History Procedure Laterality Date CHOLECYSTECTOMY HERNIA REPAIR OTHER SURGICAL HISTORY Skull fracture surgery OTHER SURGICAL HISTORY Ruptured lungs SPLENECTOMY SPLENECTOMY N/A 2000 Allergies Allergen Reactions Spiriva Handihaler [Tiotropium Mcclure Monohydrate] Shortness of Breath Prior to Admission medications Medication Sig Start Date End Date Taking? Authorizing Provider albuterol (PROVENTIL HFA;VENTOLIN HFA) 108 (90 Base) MCG/ACT inhaler Inhale 2 puffs into th e lungs. Historical Provider bisoprolol (ZEBETA) 10 MG tablet Take 1 tablet by mouth daily. 05/05/18 05/05/19 EDINSON Santo budesonide-formoterol (SYMBICORT) 160-4.5 MCG/ACT inhaler Inhale 2 puffs into the lungs 2 ( two) times daily. 01/17/18 01/17/19 Tristian Foote MD omeprazole (PRILOSEC) 20 MG capsule Take 20 mg by mouth. Historical Provider warfarin (COUMADIN) 4 MG tablet Take 50 mg by mouth once a week. Historical Provider Family History Problem Relation Age of Onset Cancer Mother Lung cancer COPD Father Emphysema Father Social History Social History Marital status: Spouse name: N/A Number of children: N/A Years of education: N/A Occupational History Not on file. Social History Main Topics Smoking status: Former Smoker Packs/day: 2.00 Years: 20.00 Quit date: 08/12/2000 Smokeless tobacco: Former User Quit date: 02/03/1992 Alcohol use No Drug use: No Comment: Not in 10 years Sexual activity: Not on file Other Topics Concern Not on file Social History Narrative No narrative on file PHYSICAL EXAM Vital Signs: BP (!) 136/97 (Patient Position: Sitting) | Pulse 88 | Temp 98 F (36.7 C) (Temporal) | Resp 18 | Wt 102.1 kg (225 lb) | SpO2 97% | BMI 26.00 kg/m Physical Exam Constitutional: He is oriented to person, place, and time. Vital signs are normal. He appea rs well-developed and well-nourished. HENT: Head: Normocephalic and atraumatic. Eyes: Conjunctivae and lids are normal. Neck: Trachea normal and normal range of motion. Neck supple. No JVD present. Cardiovascular: Normal rate and regular rhythm. Pulmonary/Chest: Effort normal and breath sounds normal. Abdomina/Gl: Soft. Musculoskeletal: He exhibits no edema. Neurological: He is alert and oriented to person, place, and time. No cranial nerve deficit . Skin: Skin is warm. No cyanosis. DATA PFT/CT scan as above ASSESSMENT & PLAN 62 Y/O with COPD and progressive dyspnea.The patient has a large bullae in the left lower l obe as well as a paraesophageal hernia. I have recommended thoracoscopy and resection of the bullae. Surgery tentatively scheduled for 05/23/18. Primary Care Physician: Maria LIMON MD 05/10/2018 *CORE MEASURES REMINDER: If the patient has a known or suspected infection prior to surger y, please add diagnosis to the problem list (consider: Infection 136.9). in this encounter Plan of Treatment +--------+---------+ + + + | Date | Type | Specialty | Care Team | Description | +--------+---------+ + + + | 08/05/ | Office | Pulmonology | Tristian Foote MD | | | 2019 | Visit | | [address] | | | | | | [place] [address] | | | | | | [phone] | | | | | | | | +--------+---------+ + + + | 08/15/ | Office | Cardiology | Sarai Arce | | | 2018 | Visit | | [address] | | | | | | [address] | | | | | | [place] [address] | | | | | | [phone] | | | | | | | | +--------+---------+ + + + | 08/19/ | Office | General Surgery | Michele Motta, | | | 2018 | Visit | | MD [address] | | | | | | [address] [facility], | | | | | | [place] [address] | | | | | | [phone] | | | | | | | [...] +--------+ + + + in this encounter Visit Diagnoses + + | Diagnosis | + + | Lung bullae (HCC) - Primary | + + | Emphysematous bleb | + +"
--- OUTSIDE RECORDS SUMMARY | ~2018-08-01 | XMS | Encounter Summary ---
Demographics + + + | Address | [address] | | | [place] [address] | + + + | Home Phone | | + + + | Preferred Language | Unknown | + + + | Marital Status | | + + + | Druze Affiliation | 1013 | + + + | Race | Unknown | + + + | Ethnic Group | Unknown | + + + Author + + + | Author | [facility] | + + + | Organization | [facility] | + + + | Address | Unknown | + + + | Phone | Unavailable | + + + Support + + +---------+ + | Name | Relationship | Address | Phone | + + +---------+ + | Sebastien Champion | ECON | Unknown | | + + +---------+ + Care Team Providers + +------+ + | Care Field Control Inspector Name | Role | Phone | + +------+ + | Maria Vieira PA-C | PCP | | + +------+ + Reason for Visit + + + | Reason | Comments | + + + | Post-op Follow Up | thoracoscopy f/u 2 days post discharge | + + + Encounter Details +--------+ + + + + | Date | Type | Department | Care Team | Description | +--------+ + + + + | 05/26/ | Telephone | [facility] | Sonia Samaniego RN | Post-op Follow Up | | 2019 | | Cardiothoracic | | (thoracoscopy f/u 2 | | | | Surgery [address] | | days post discharge) | | | | [address] | | | | | | [place], [place] | | | | | | [address] | | | | | | [phone] | | | +--------+ + + + [...] [address] | | | | | | [place] [address] | | | | | | [phone] | | | | | | | | +--------+---------+ + + + | 08/15/ | Office | Cardiology | Sarai Arce | | | 2018 | Visit | | [address] | | | | | | [address] | | | | | | [place] [address] | | | | | | [phone] | | | | | | | | +--------+---------+ + + + | 08/19/ | Office | General Surgery | Michele Motta, | | | 2018 | Visit | | MD Donna [address] | | | | | | [address] [place] | | | | | | [place] [address] | | | | | | [phone] | | | | | | | | +--------+---------+ + + + as of this encounter Visit Diagnoses Not on filein this encounter"
--- OUTSIDE RECORDS SUMMARY | ~2018-08-01 | XMS | Encounter Summary ---
Demographics + + + | Address | [address] | | | [place] [address] | + + + | Home Phone | | + + + | Preferred Language | Unknown | + + + | Marital Status | | + + + | Jain Affiliation | 1013 | + + + | Race | Unknown | + + + | Ethnic Group | Unknown | + + + Author + + + | Author | [facility] | + + + | Organization | [facility] | + + + | Address | Unknown | + + + | Phone | Unavailable | + + + Support + + +---------+ + | Name | Relationship | Address | Phone | + + +---------+ + | Sebastien Champion | ECON | Unknown | | + + +---------+ + Care Team Providers + +------+ + | Care Doughnut Maker Name | Role | Phone | + +------+ + | Maria Vieira PA-C | PCP | | + +------+ + Encounter Details +--------+ + + + + | Date | Type | Department | Care Team | Description | +--------+ + + + + | 07/29/ | Procedure | [facility] | | | | 2019 | [facility] | | | | | | Operating Room [address] | | | | | | [address] | | | | | | [place] [address] | | | | | | [phone] | | | +--------+ + + + [...] [address] | | | | | | [place] [address] | | | | | | [phone] | | | | | | | | +--------+---------+ + + + | 08/15/ | Office | Cardiology | Sarai Arce | | | 2019 | Visit | | [address] | | | | | | [address] | | | | | | [place] [address] | | | | | | [phone] | | | | | | | | +--------+---------+ + + + | 08/19/ | Office | General Surgery | Michele Motta, | | | 2019 | Visit | | MD [address] | | | | | | [address] [place], | | | | | | [place] [address] | | | | | | [phone] | | | | | | | | +--------+---------+ + + + as of this encounter Visit Diagnoses Not on filein this encounter"
--- OUTSIDE RECORDS SUMMARY | ~2018-08-01 | XMS | Encounter Summary ---
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 Output 3500 ml Net -850 ml PHYSICAL afeb vss BP bumped up Negative fluid balance Excellent UOP CHRISSY is now very serous and almost no blood Wound(s) well approximated, nonreactive and dry. ASSESSMENT OK to DC Drain removed on rounds today PLAN DC home LICHA MOTTA MD 08/01/2018 9:10 AM Licha Motta MD - 07/31/2018 9:23 AM PDTFormatting of this note may be different from the original. [facility] Service: General Surgery Progress Note Hospital Day: LOS:Hospital Day: 3 Post-Op Day: 2 Days Post-Op SUBJECTIVE Feeling better. Still most sore in the RLQ near the CHRISSY site. Urinating quite well. >1000 ml /12h OBJECTIVE Vital Signs: Vitals: 07/31/18 0737 BP: 121/71 Pulse: 96 Resp: 18 Temp: 97.5 F (36.4 C) SpO2: 90% Vitals: 07/30/18 2347 07/31/18 0344 07/31/18 0532 07/31/18 0737 BP: 107/73 96/55 121/71 BP Location: Left upper arm Left upper arm Left upper arm Pulse: 98 87 96 Resp: 18 18 18 Temp: 97.7 F (36.5 C) 98.3 F (36.8 C) 97.5 F (36.4 C) TempSrc: Oral Oral Oral SpO2: 92% 90% Weight: 104 kg (229 lb 4.5 oz) Height: Intake/Output Summary (Last 24 hours) at 07/31/18 0923 Last data filed at 07/31/18 0530 Gross per 24 hour Intake 4438 ml Output 1520 ml Net 2918 ml DATA Lab Results Component Value Date/Time WBC 7.81 07/31/2018 04:41 AM HGB 12.1 (L) 07/31/2018 04:41 AM HCT 35.1 (L) 07/31/2018 04:41 AM PLT 113 (L) 07/31/2018 04:41 AM NA 136 07/31/2018 04:41 AM K 4.2 07/31/2018 04:41 AM K 5.0 07/29/2018 07:10 PM CREATININE 1.0 07/31/2018 04:41 AM AST 30 06/13/2012 10:00 AM ALT 38 06/13/2012 10:00 AM PHYSICAL afeb vss Wound(s) well approximated, nonreactive and dry. CHRISSY is now very serous, light-pink 125 ml out / 12h No bile staining ASSESSMENT Labs look great Renal function looks great with Cr at 1.0 Excellent UOP Tolerating PO Pain still significant but improving PLAN DC tele SL IVF again I plan on keeping him tonight because he lives in [place] LICHA MOTTA MD 07/31/2018 9:23 AM Maritza Shafer RN - 07/31/2018 5:55 AM PDTSBP<100 this morning held lisinopril.Maritza Shafer RN - 07/31/2018 5:50 AM PDTPatient has slept off and on overnight. Ambulating t o BR several times to void. No flatus or BM. No nausea. Drinking lots of water yesterday aft ernoon/evening. O=4541 O=950. CHRISSY output 125ml serosang overnight. Chart check complete. Maritza Shafer RN - 07/30/2018 9:45 [address] PDTDr. Motta notified of urine output of 175ml, clear prema colored urine since kemp removal. Orders received.Licha Motta MD - 07/30/2018 10:39 AM PDTFormatting of this note may be different from the [facility] Progress Note Hospital Day: LOS:Hospital Day: 2 Post-Op Day: 1 Day Post-Op SUBJECTIVE Pretty sore. Generalized abdominal pain. Not too much in the chest. No heartburn. OBJECTIVE Vital Signs: Vitals: 07/30/18 0732 BP: 98/56 Pulse: 96 Resp: 16 Temp: 97.8 F (36.6 C) SpO2: 94% Vitals: 07/30/18 0145 07/30/18 0336 07/30/18 0539 07/30/18 0732 BP: 98/64 97/63 121/61 98/56 BP Location: Left upper arm Left upper arm Pulse: 103 96 Resp: 16 16 Temp: 97.8 F (36.6 C) 97.8 F (36.6 C) TempSrc: Oral Oral SpO2: 93% 94% Weight: Height: Intake/Output Summary (Last 24 hours) at 07/30/18 1039 Last data filed at 07/30/18 0700 Gross per 24 hour Intake 5163 ml Output 1285 ml Net 3878 ml DATA Lab Results Component Value Date/Time WBC 9.40 07/30/2018 04:43 AM HGB 13.7 07/30/2018 04:43 AM HCT 41.1 07/30/2018 04:43 AM PLT 147 (L) 07/30/2018 04:43 AM NA 140 07/30/2018 04:43 AM K 4.8 07/30/2018 04:43 AM K 5.0 07/29/2018 07:10 PM CREATININE 1.2 07/30/2018 04:43 AM AST 30 06/13/2012 10:00 AM ALT 38 06/13/2012 10:00 AM PHYSICAL Labs look good UOP OK CHRISSY is very watery and clearing (pink) Wound(s) well approximated, nonreactive and dry. CHRISSY site is leaking around the CHRISSY some ASSESSMENT Stable post huge mediastinal disection PLAN Advance diet Add Toradol Hold the lisinopril if BP is low Ambulate LICHA MOTTA MD 07/30/2018 10:39 AM Shara Ward, [facility] - 07/29/2018 10:21 PM PDTRenal Dosing Monitoring: Mason Champion 62 y.o. male Pharmacy dosing for renal function per Dr. Licha Motta Serum creatinine: 1 mg/dL 07/21/18 1720 Estimated creatinine clearance: 101.6 mL/min Plan per protocol: No medications need adjustment at this time Pharmacy will continue to monitor changes in medication orders and renal function and will adjust accordingly. 07/29/2018 10:21 PM Pharmacist: Shara Ward in this encounter Plan of Treatment +--------+---------+ + + + | Date | Type | Specialty | Care Team | Description | +--------+---------+ + + + | 08/05/ | Office | Pulmonology | Tristian Foote MD | | | 2019 | Visit | | [address] | | | | | | [place] [address] | | | | | | [phone] | | | | | | | | +--------+---------+ + + + | 08/15/ | Office | Cardiology | Sarai Arce | | | 2018 | Visit | | [address] | | | | | | [address] | | | | | | [place] [address] | | | | | | [phone] | | | | | | | | +--------+---------+ + + + | 08/19/ | Office | General Surgery | Licha Motta, | | | 2018 | Visit | | MD [address] | | | | | | [address] [place], | | | | | | [place] [address] | | | | | | [phone] | | | | | | | [...] 07/29/2018 | Paraesophageal | | | LAPAROSCOPIC MIGUEL A | | 11:50 AM | hernia | [...] | | | ntin | +---+--------+ + +------+ +---+ + | PROTIME-INR | STAT | 07/29/2018 | | Results for this | | | | 11:16 AM | | procedure are in the | | | | PDT | | results section. | + +------+ +---+ + | TYPE AND SCREEN | STAT | 07/29/2018 | | Results for this | | | | 10:44 AM | | procedure are in the | | | | PDT | | results section. | + +------+ +---+ + in this encounter Results Basic metabolic panel (07/31/2018 4:41 AM) + + + + + | [...] >60Comment: GFR <60: | >60 mL/min/1.73m2 | [facility] | | | CHRONIC KIDNEY DISEASE, | [...] | | | | | performed at [facility], [address] | | | | [facility], | | | | | [place] [address] | | | + + + + + + + | Specimen | + + | Blood | + + + + + + + | Performing | Address | City/State/Zipcode | Phone Number | | Organization | | | | + + + + + | [facility] | [address] | [place] [address] | [phone] | | LABORATORY | [address] | | | + + + + + CBC w/auto diff (reflex to manual) (07/31/2018 4:41 AM) + + + + + | [...] | [facility] | | | performed at [facility], [address] | | LABORATORY | | | [address], | | | | | [place] [address] | | | + + + + + + + | Specimen | + + | Blood | + + + + + + + | Performing | Address | City/State/Zipcode | Phone Number | | Organization | | | | + + + + + | [facility] | [address] | [place] [address] | [phone] | | LABORATORY | [address] | | | + + + + + Basic metabolic panel (07/30/2018 4:43 AM) + + + + + | Component | Value | Ref Range | Performed At | + + + + + | SODIUM | 140 | 135 - 145 mmol/L | [facility] | | | | | LABORATORY | + + + + + | POTASSIUM | 4.8 | 3.5 - 4.9 mmol/L | [facility] | | | | | LABORATORY | + + + + + | CHLORIDE | 109 | 99 - 109 mmol/L | [facility] | | | | | LABORATORY | + + + + + | CO2 | 25 | 23 - 32 mmol/L | [facility] | | | | | LABORATORY | + + + + + | ANION GAP AGAP | 11 | 5 - 20 mmol/L | [facility] | | | | | LABORATORY | + + + + + | GLUCOSE | 146 (H) | 65 - 99 mg/dL | [facility] | | | | | LABORATORY | + + + + + | BUN | 16 | 8 - 25 mg/dL | [facility] | | | | | LABORATORY | + + + + + | CREATININE | 1.2 | 0.70 - 1.30 mg/dL | [facility] | | | | | LABORATORY | + + + + + | BUN/CREAT | 13 | | [facility] | | | | | [facility] | + + + + + | CALCIUM | 8.4 (L) | 8.5 - 10.5 mg/dL | [facility] | | | | | LABORATORY | + + + + + | EGFR | >60Comment: GFR <60: | >60 mL/min/1.73m2 | [facility] | | | CHRONIC KIDNEY DISEASE, | [...] | | | | | performed at [facility], [address] | | | | [facility], | | | | | [place] [address] | | | + + + + + + + | Specimen | + + | Blood | + + + + + + + | Performing | Address | City/State/Zipcode | Phone Number | | Organization | | | | + + + + + | [facility] | [address] [place] [address] | [place] [address] | [phone] | | LABORATORY | [facility]. | | | + + + + + CBC w/auto diff (reflex to manual) (07/30/2018 4:43 AM) + + + + + | Component | Value | Ref Range | Performed At | + + + + + | WBC | 9.40 | 3.80 - 11.00 K/uL | [facility] | | | | | LABORATORY | + + + + + | RBC | 4.20 | 4.20 - 5.70 M/uL | [facility] | | | | | LABORATORY | + + + + + | HGB | 13.7 | 13.2 - 17.0 g/dL | [facility] | | | | | LABORATORY | + + + + + | HCT | 41.1 | 39.0 - 50.0 % | [facility] | | | | | LABORATORY | + + + + + | MCV | 97.9 | 80.0 - 100.0 fl | [facility] | | | | | LABORATORY | + + + + + | MCH | 32.7 | 27.0 - 34.0 pg | [facility] | | | | | LABORATORY | + + + + + | MCHC | 33.4 | 32.0 - 35.5 g/dL | [facility] | | | | | LABORATORY | + + + + + | RDW SD | 47.3 | 37 - 53 fl | [facility] | | | | | LABORATORY | + + + + + | PLT | 147 (L) | 150 - 400 K/uL | [facility] | | | | | LABORATORY | + + + + + | MPV | 10.0 | fl | [facility] | | | | | LABORATORY | + + + + + | DIFF TYPE | AUTOMATED | | [facility] | | | | | LABORATORY | + + + + + | NEUTROPHILS | 75.87 | % | [facility] | | | | | LABORATORY | + + + + + | LYMPHOCYTES | 9.46 | % | [facility] | | | | | LABORATORY | + + + + + | MONOCYTES | 14.60 | % | [facility] | | | | | LABORATORY | + + + + + | EOSINOPHILS | 0.03 | % | [facility] | | | | | LABORATORY | + + + + + | BASOPHILS | 0.04 | % | [facility] | | | | | LABORATORY | + + + + + | NEUTROPHILS ABS | 7.13 | 1.90 - 7.40 K/uL | [facility] | | | | | LABORATORY | + + + + + | LYMPHOCYTES ABS | 0.89 (L) | 1.00 - 3.90 K/uL | [facility] | | | | | LABORATORY | + + + + + | MONOCYTES ABS | 1.37 (H) | 0.00 - 0.80 K/uL | [facility] | | | | | LABORATORY | + + + + + | EOSINOPHILS ABS | 0.00 | 0.00 - 0.50 K/uL | [facility] | | | | | LABORATORY | + + + + + | BASOPHILS ABS | 0.00Comment: Testing | 0.00 - 0.10 K/uL | [facility] | | | performed at [facility], [address] | | LABORATORY | | | [address], | | | | | [place] [address] | | | + + + + + + + | Specimen | + + | Blood | + + + + + + + | Performing | Address | City/State/Zipcode | Phone Number | | Organization | | | | + + + + + | [facility] | [address] | [place] [address] | [phone] | | LABORATORY | [address]vd[address] | | | + + + + + XR chest 1 view (07/29/2018 9:23 PM) + + + | Impressions | [...] | + + + + + | [facility] | [address] | [place] [address] | | + + + + + OR General Scope Imaging (07/29/2018 8:06 PM) + + + | Narrative | Performed At | + + + | This is a non-reportable procedure without a radiologist report and | [facility] | | is used for image storage only. Please review the OR procedure | RADIOLOGY | | report for details on the procedure. | | + + + + + + + + | Performing | Address | City/State/Zipcode | Phone Number | | Organization | | | | + + + + + | [facility] | [address] | [place] [address] | | + + + + + POC arterial CG4+ (07/29/2018 7:16 PM) + + + + + | Component | Value | Ref Range | Performed At | + + + + + | pH, Art | 7.259 (L) | 7.350 - 7.450 | [facility] | + + + [...] 24 | 23 - 27 mEq/L | [facility] | + + + + + | POC BASE DEFICIT | 4 (H) | 0.0 - 2.0 mmol/L | [facility] | + + + + + | POC S02 | 99 (H)Comment: Testing | 95 - 98 % | [facility] | | | performed at [facility];[address] | | | | [address];[place] | | | | | [address] | | | + + + + + + + + + + | Performing | Address | City/State/Zipcode | Phone Number | | Organization | | | | + + + + + | [facility] | [address] | [place] [address] | | + + + + + POC arterial CG8+ (07/29/2018 7:10 PM) + + + + + | Component | Value | Ref Range | Performed At | + + + + + | pH, Art | 7.259 (L) | 7.350 - 7.450 | [facility] | + + + + + [...] 140 | 135 - 145 mEq/L | [facility] | + + + + + | POC POTASSIUM | 5.0 | 3.5 - 5.0 mEq/L | [facility] | + + + + + | POC IONIZED CALCIUM | 1.11 (L) | 1.12 - 1.32 mmol/L | [facility] | + + + + + | POC GLUCOSE | 144 (H) | 65 - 99 mg/dL | [facility] | + + + + + | POC HCT | 46 | 40.0 - 50.0 % | [facility] | + + + + + | POC HGB | 15.6Comment: Testing | 13.7 - 16.7 g/dL | [facility] | | | performed at [facility] | | | | | [address] [facility];[place], [place] | | | | | [address] | | | + + + + + + + + + + | Performing | Address | City/State/Zipcode | Phone Number | | Organization | | | | + + + + + | [facility] | [address] | [place] [address] | | + + + + + POC arterial CG8+ (07/29/2018 4:03 PM) + + + + + | Component | Value | Ref Range | Performed At | + + + + + | pH, Art | 7.350 | 7.350 - 7.450 | [facility] | + + + + + | POC PCO2 | 43 | 35 - 45 mmHg | [facility] | + + + + + | POC p02 | 253 (HH) | 80 - 105 mmHg | [facility] | + + + + + | POC HCO3 | 24 | 22 - 26 mmol/L | [facility] | + + + + + | POC TCO2 | 25 | 23 - 27 mEq/L | [facility] | + + + + + | POC BASE DEFICIT | 2 | 0.0 - 2.0 mmol/L | [facility] | + + + + + | POC S02 | 100 (H) | 95 - 98 % | [facility] | + + + + + | POC SODIUM | 139 | 135 - 145 mEq/L | [facility] | + + + + + | POC POTASSIUM | 4.6 | 3.5 - 5.0 mEq/L | [facility] | + + + + + | POC IONIZED CALCIUM | 1.12 | 1.12 - 1.32 mmol/L | [facility] | + + + + + | POC GLUCOSE | 135 (H) | 65 - 99 mg/dL | [facility] | + + + + + | POC HCT | 44 | 40.0 - 50.0 % | [facility] | + + + + + | POC HGB | 15.0Comment: Testing | 13.7 - 16.7 g/dL | [facility] | | | performed at [facility];[address] | | | | | [address];[place] | | | | | [address] | | | + + + + + + + + + + | Performing | Address | City/State/Zipcode | Phone Number | | Organization | | | | + + + + + | [facility] | [address] | [place] [address] | | + + + + + POC arterial CG8+ (07/29/2018 1:24 PM) + + + + + | Component | Value | Ref Range | Performed At | + + + + + | pH, Art | 7.320 (L) | 7.350 - 7.450 | [facility] | + + + + + | POC PCO2 | 47 (H) | 35 - 45 mmHg | [facility] | + + + + + | POC p02 | 325 (HH) | 80 - 105 mmHg | [facility] | + + + + + | POC HCO3 | 24 | 22 - 26 mmol/L | [facility] | + + + + + | POC TCO2 | 26 | 23 - 27 mEq/L | [facility] | + + + + + | POC BASE DEFICIT | 2 | 0.0 - 2.0 mmol/L | [facility] | + + + + + | POC S02 | 100 (H) | 95 - 98 % | [facility] | + + + + + | POC SODIUM | 138 | 135 - 145 mEq/L | [facility] | + + + + + | POC POTASSIUM | 4.8 | 3.5 - 5.0 mEq/L | [facility] | + + + + + | POC IONIZED CALCIUM | 1.16 | 1.12 - 1.32 mmol/L | [facility] | + + + + + | POC GLUCOSE | 123 (H) | 65 - 99 mg/dL | [facility] | + + + + + | POC HCT | 42 | 40.0 - 50.0 % | [facility] | + + + + + | POC HGB | 14.3Comment: Testing | 13.7 - 16.7 g/dL | [facility] | | | performed at [facility];[address] | | | | | [address];[place] | | | | | [address] | | | + + + + + + + + + + | Performing | Address | City/State/Zipcode | Phone Number | | Organization | | | | + + + + + | [facility] | [address] | [place] [address] | | + + + + + Protime-INR (07/29/2018 11:16 AM) + + + + + | Component | Value | Ref Range | Performed At | + + + + + | INR | 1.2Comment: REFERENCE | | [facility] | | | RANGE:0.9 - | [...] | | | | | performed at [facility] | | | | | [facility];[place], [place] | | | | | [address] | | | + + + + + + + | Specimen | + + | Blood | + + + + + + + | Performing | Address | City/State/Zipcode | Phone Number | | Organization | | | | + + + + + | [facility] | [address] | [place] [address] | | + + + + + Type and screen (07/29/2018 10:44 AM) + + + + + | Component | Value | Ref Range | Performed At | + + + + + | ABO/RH(D) | O POSITIVE | | [facility] | + + + + + | ANTIBODY SCREEN | NEGATIVE | | [facility] | + + + + + | ARM BAND NUMBER | [id number] | | [facility] | | | performed at [facility];[address] | | | | | [address];[place] | | | | | [address] | | | + + + + + + + | Specimen | + + | Blood | + + + + + + + | Performing | Address | City/State/Zipcode | Phone Number | | Organization | | | | + + + + + | [facility] | [address] | [place] [address] | | + + + + + in this encounter Visit Diagnoses Not on filein this encounter Admitting Diagnoses + + | Diagnosis | + + | Gastroesophageal reflux disease with hiatal hernia | + + | Esophageal reflux | + + Administered Medications + +--------+---------+------+------+------+ | Medication Order | MAR | Action | Dose | Rate | Site | | | Action | Date | | | | + +--------+---------+------+------+------+ + +---+ | acetaminophen (TYLENOL) | | | suppository 650 mg 650 mg, | | | Rectal, Every 6 Hours PRN, Mild | | | Pain (1-3), Fever, Starting Fri | | | 07/29/18 at 2153 | | + +---+ | | | + +---+ + +-------+ +--------+---+---+ | acetaminophen (TYLENOL) tablet | Given | | 650 mg | | | | 650 mg 650 mg, Oral, Every 6 | | 9 04:53 | | | | | Hours PRN, Mild Pain (1-3), | | PDT | | | | | Fever, Starting 07/29/18 at | | | | | | | 2153 | | | | | | + +-------+ +--------+---+---+ +---+---+ | | | +---+---+ + +-------+ +---------+---+---+ | albuterol (PROVENTIL | Given | | 2 puffs | | | | HFA;VENTOLIN HFA) inhaler 2 | | 9 06:02 | | | | | puff, Inhalation, Every 6 Hours | | PDT | | | | | PRN, Wheezing, Starting Fri | | | | | | | 07/29/18 at 2153 | | | | | | + +-------+ +---------+---+---+ +-------+ +---------+---+---+ | Given | | 2 puffs | | | | | 9 07:49 | | | | | | PDT | | | | +-------+ +---------+---+---+ +---+---+ | | | +---+---+ + +-------+ +---------+---+---+ | budesonide-formoterol | Given | | 2 puffs | | | | (SYMBICORT) 160-4.5 MCG/ACT | | 9 08:06 | | | | | inhaler 2 puff 2 puff, | | PDT | | | | | Inhalation, 2 Times Daily, First | | | | | | | dose on 07/30/18 at 0900 | | | | | | + +-------+ +---------+---+---+ +-------+ +---------+---+---+ | Given | | 2 puffs | | | | | 9 02:33 | | | | | | PDT | | | | +-------+ +---------+---+---+ | Given | | 2 puffs | | | | | 9 07:49 | | | | | | PDT | | | | +-------+ +---------+---+---+ +---+---+ | | | +---+---+ + +-------+ +--------+---+---+ | bupivacaine-EPINEPHrine (PF) | Given | | 30 mLs | | | | 0.5% -[id number] injection PRN, | | 9 13:00 | | | | | Starting Wed07/29/18 at 1300, | | PDT | | | | | Intra-op | | | | | | + +-------+ +--------+---+---+ + +---+ | | | + +---+ | diphenhydrAMINE (BENADRYL) 12.5 | | | mg/5 mL liquid 25 mg 25 mg, | | | Oral, Every 8 Hours PRN, Itching, | | | Starting Wed07/29/18 at 2153 | | + +---+ | | | + +---+ | diphenhydrAMINE (BENADRYL) | | | capsule 25 mg 25 mg, Oral, Every | | | 8 Hours PRN, Itching, Starting | | | 07/29/18 at 2153 | | + +---+ | | | + +---+ + +-------+ + +---+---+ | HYDROcodone-acetaminophen | Given | | 1 tablet | | | | (NORCO) 10-325 MG per tablet 1 | | 9 16:54 | | | | | tablet 1 tablet, Oral, Every 4 | | PDT | | | | | Hours PRN, Severe Pain (7-10), | | | | | | | Starting 07/29/18 at 2153 | | | | | | + +-------+ + +---+---+ +-------+ + +---+---+ | Given | | 1 tablet | | | | | 9 04:58 | | | | | | PDT | | | | +-------+ + +---+---+ | Given | | 1 tablet | | | | | 9 11:05 | | | | | | PDT | | | | +-------+ + +---+---+ +---+---+ | | | +---+---+ + +-------+ + +---+---+ | HYDROcodone-acetaminophen | Given | | 1 tablet | | | | (NORCO) 5-325 MG per tablet 1 | | 9 05:25 | | | | | tablet 1 tablet, Oral, Every 4 | | PDT | | | | | Hours PRN, Moderate Pain (4-6), | | | | | | | Starting 07/29/18 at 2153 | | | | | | + +-------+ + +---+---+ +-------+ + +---+---+ | Given | | 1 tablet | | | | | 9 20:23 | | | | | | PDT | | | | +-------+ + +---+---+ | Given | | 1 tablet | | | | | 9 02:33 | | | | | | PDT | | | | +-------+ + +---+---+ +---+---+ | | | +---+---+ + +-------+ +-------+---+---+ | ketorolac (TORADOL) tablet 10 | Given | | 10 mg | | | | mg 10 mg, Oral, Every 6 Hours, | | 9 16:10 | | | | | First dose on 07/30/18 at | | PDT | | | | | 1100, For 5 days | | | | | | + +-------+ +-------+---+---+ +-------+ +-------+---+---+ | Given | | 10 mg | | | | | 9 04:58 | | | | | | PDT | | | | +-------+ +-------+---+---+ | Given | | 10 mg | | | | | 9 10:11 | | | | | | PDT | | | | +-------+ +-------+---+---+ +---+---+ | | | +---+---+ + +-------+ +------+---+---+ | lisinopril (ZESTRIL) tablet 5 | Given | | 5 mg | | | | mg 5 mg, Oral, Daily, First dose | | 9 05:39 | | | | | on 07/30/18 at 0600 | | PDT | | | | + +-------+ +------+---+---+ +-------+ +------+---+---+ | Given | | 5 mg | | | | | 9 04:53 | | | | | | PDT | | | | +-------+ +------+---+---+ +---+---+ | | | +---+---+ + +-------+ +--------+---+---+ | magnesium hydroxide (MILK OF | Given | | 30 mLs | | | | MAGNESIA) 400 MG/5ML suspension | | 9 16:12 | | | | | 30 mL 30 mL, Oral, Daily PRN, | | PDT | | | | | Constipation, Starting Fri | | | | | | | 07/29/18 at 2153 | | | | | | + +-------+ +--------+---+---+ +-------+ +--------+---+---+ | Given | | 30 mLs | | | | | 9 04:54 | | | | | | PDT | | | | +-------+ +--------+---+---+ +---+---+ | | | +---+---+ + +-------+ +-------+---+---+ | pantoprazole (PROTONIX) EC | Given | | 40 mg | | | | tablet 40 mg 40 mg, Oral, Every | | 9 10:16 | | | | | Morning Before Breakfast, First | | PDT | | | | | dose on 07/31/18 at 1000 | | | | | | + +-------+ +-------+---+---+ +-------+ +-------+---+---+ | Given | | 40 mg | | | | | 9 04:53 | | | | | | PDT | | | | +-------+ +-------+---+---+ +---+---+ | | | +---+---+ + +-------+ +-------+---+---+ | simethicone (MYLICON) chewable | Given | | 80 mg | | | | tablet 80 mg 80 mg, Oral, Every | | 9 16:54 | | | | | 6 Hours PRN, Gas pain, Starting | | PDT | | | | | 07/31/18 at 1636 | | | | | | + +-------+ +-------+---+---+ +-------+ +-------+---+---+ | Given | | 80 mg | | | | | 9 04:53 | | | | | | PDT | | | | +-------+ +-------+---+---+ + +---+ | | | + +---+ | sodium chloride (PF) 0.9 % | | | flush 10 mL 10 mL, Intravenous, | | | Every 8 Hours PRN, Line Care, | | | when tolerating oral fluids, | | | Starting 07/29/18 at 2153 | | + +---+ | | | + +---+ | sodium chloride 0.9 % flush 3 | | | mL 3 mL, Intravenous, Every 8 | | | Hours, First dose on 07/30/18 | | | at 1100 | | + +---+ | | | + +---+ + +-------+ +-------+---+---+ | sodium chloride 0.9 % flush 3 | Given | | 3 mLs | | | | mL 3 mL, Intravenous, Every 8 | | 9 02:34 | | | | | Hours, First dose on 07/31/18 | | PDT | | | | | at 1000 | | | | | | + +-------+ +-------+---+---+ +-------+ +-------+---+---+ | Given | | 3 mLs | | | | | 9 10:12 | | | | | | PDT | | | | +-------+ +-------+---+---+ +---+---+ | | | +---+---+ in this encounter
--- OUTSIDE RECORDS SUMMARY | ~2018-08-01 | XMS | Encounter Summary ---
Demographics + + + | Address | [address] | | | [place] [address] | + + + | Home Phone | | + + + | Preferred Language | Unknown | + + + | Marital Status | | + + + | Church Affiliation | 1013 | + + + | Race | Unknown | + + + | Ethnic Group | Unknown | + + + Author + + + | Author | [facility] | + + + | Organization | [facility] | + + + | Address | Unknown | + + + | Phone | Unavailable | + + + Support + + +---------+ + | Name | Relationship | Address | Phone | + + +---------+ + | Sebastien Champion | ECON | Unknown | | + + +---------+ + Care Team Providers + +------+ + | Care Foot And Ankle Surgeon Name | Role | Phone | + [...] | | | | | | | ([facility]) | | | | | | | Procedures | | | | | | | THORACOSCOPY | | | | | | | - BIOPSY | | | +--------+--------+ + + + + Encounter Details +--------+ + + + + | Date | Type | Department | Care Team | Description | +--------+ + + + + | 05/23/ | Hospital | [facility] | Samson Limon MD | Lung bullae ([facility]); | | 2019 - | Encounter | [facility] | [address] | Lung bullae ([facility]) | | | | Floor [facility] | [place] [address] | | | 05/24/ | | [address] | [phone] | | | 2018 | | [place] [address] | | | | | | [phone] | | | +--------+ + + + [...] ARTHROSCOPY Allergies Allergen Reactions Spiriva Handihaler [Tiotropium Napoleon Monohydrate] Shortness of Breath Prescriptions Prior to [...] Date: 11/21/18 Follow up: Samson Limon MD [address] [facility] [address] Schedule an appointment as soon as possible for a visit on 06/07/2018 Post-Op Maria Vieira PA-C [address] [place] [phone] Schedule an appointment as soon as possible [...] medications [facility] [place] [address], [facility] [address] acetaminophen 500 MG tablet gabapentin 300 MG [...] information carefully each time. Talk to your automobile club travel counselor regarding the use of this medicine in children. Special care may be needed. What side effects may I notice from receiving this medicine? Side effects that you should report to your doctor or health rn medicare as soon as p ossible: allergic reactions like skin rash, itching or hives, swelling of the face, lips, or tong ue worsening of mood, thoughts or actions of suicide or dying Side effects that usually do not require medical attention (report to your doctor or health rn medicare if they continue or are bothersome): constipation [...] this medicine? Visit your doctor or health rn medicare for regular checks on your progress. You may want to keep a record at home of how you feel your condition is responding to treatment. You may want to share this information with your doctor or health rn medicare at each vis it. You should contact your doctor or health rn medicare if your seizures get worse or if you have any new types of seizures. Do not stop taking this medicine or any of your seiz ure medicines unless instructed by your doctor or health rn medicare. Stopping your me dicine suddenly can increase [...] dying should be reported to your health rn medicare right away. Women who become while using this medicine may enroll in the [place] Ant[place]ptic Drug Registry by calling . This registry collects informatio n about the safety of antiepileptic drug use during . NOTE:This sheet is a summary. It may not cover all possible information. If you have questi ons about this medicine, talk to your doctor, pharmacist, or health care provider. Copyright 2018 [employer] Methocarbamol tablets Brand Name: Robaxin What is [...] more often than directed. Talk to your automobile club travel counselor regarding the use of this medicine in children. Special care may be needed. What side effects may I notice from receiving this medicine? Side effects that you should report to your doctor or health rn medicare as soon as p ossible: allergic reactions like skin rash, itching or hives, swelling of the face, lips, or tong ue breathing problems confusion seizures unusually weak or tired Side effects that usually do not require medical attention (report to your doctor or health rn medicare if they continue or are bothersome): dizziness [...] medicine? Tell your doctor or health rn medicare if your symptoms do not start to [...] t o schedule a time Please call [phone] with any questions or if you need to reschedul e Please go to [facility] and get a 2-view Chest X-Ray done 30min before your appoint ment. An order has been placed for you Follow up with your literacy coordinator, , in 2-4 weeks. Follow up with your primary care physician in 2-4 weeks. General Instructions The [facility] Cardiothoracic Surgery office will contact you within 72 hours of your hospital discharge. If you do not receive a phone call or have any concerns before then, please call our office Mon-Fri 8:00am-5:00pm at [phone]. Please make sure we have the best [...] (MOM) or Miralax Daily Monitoring Notify the [facility] Cardiothoracic Surgery office of: Any [...] at your follo w up visit with [facility] Cardioth[facility]acic Surgery - no later [...] to sexual relati ons, driving, and work. [phone] [employer]. [address] [place] [address], [place] [address]. All righ ts reserved. This information is [...] tablets by | 30 | 0 | 02/05/20 | | | (TYLENOL) 500 MG | [...] may be different fr om the original. [facility] Service: Cardiothoracic Surgery Progress Note ROOM: [address] [place] [address] Hospital Day: LOS: 1 day Post-Op Day: [...] tablet by mouth daily. 05/05/18 05/05/19 Yes EDISNON Benson budesonide-formoterol (SYMBICORT) 160-4.5 MCG/ACT inhaler Inhale 2 puffs into the lungs 2 ( two) times daily. 01/17/18 01/17/19 Yes Tristian Foote MD omeprazole (PRILOSEC) 20 MG capsule Take 20 mg by mouth. Yes Historical Provider warfarin (COUMADIN) 4 MG tablet Take 6 mg by mouth daily. Historical Provider LABS: Recent Labs Lab 05/24/18 03505/23/18 1213 WBC 10.67 10.64 HGB 15.7 15.2 [...] hours. No results for input(s): PHART, PO2ART, KPQ2ZBP, E7XAHFXJ, BEART in the last 168 hours. Recent [...] - 05/24/2018 1:43 PM PSTPatient was seen, exami vonnie, labs, x-rays, treatment plan reviewed. in this encounter Plan of Treatment +--------+---------+ + + + | Date | Type | Specialty | Care Team | Description | +--------+---------+ + + + | 08/05/ | Office | Pulmonology | Tristian Foote MD | | | 2018 | Visit | | [address] | | | | | | [place] [address] | | | | | | [phone] | | | | | | | | +--------+---------+ + + + | 08/15/ | Office | Cardiology | Sarai Arce | | | 2018 | Visit | | [address] | | | | | | [address] | | | | | | [place] [address] | | | | | | [phone] | | | | | | | | +--------+---------+ + + + | 08/19/ | Office | General Surgery | Michele Motta, | | | 2018 | Visit | | MD Donna [address]EE | | | | | | [address] [place], | | | | | | [place] [address] | | | | | | [phone] | | | | | | | [...] Signed by: Evgeny | | | Jesus Burgess Date/Time: 06/06/2018 [...] | + + + + + | [facility] | [address] | [place] [address] | | + + + + + X-ray chest 2 view frontal & lateral (05/24/2018 9:30 AM) + + + | Impressions | Performed At | + + + | *Status post removal of the left thoracostomy tube. Possible | [facility] | | trace left apical pneumothorax. Similar soft tissue emphysema | RADIOLOGY | | along left lateral chest wall. 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 Bibasilar subsegmental atelectasis or scarring. Signed | | | by: Bobo Ledesma Date/Time: 05/24/2018 12:51 PM | | + [...] | + + + + + | [facility] | [address] | [place] [address] | | + + + + + [...] | Perfecto, Rad Results In - 05/24/2018 5:57 AM PST [...] | + + + + + | [facility] | [address] | [place] [address] | | + + + + + Magnesium (05/24/2018 3:59 AM) + + + + + | Component | Value | Ref Range | Performed At | + + + + + | MAGNESIUM | 2.2Comment: Testing | 1.7 - 2.4 mg/dL | [facility] | | | performed at [facility], [address] | | LABORATORY | | | [address], | | | | | [place] [address] | | | + + + + + + + | Specimen | + + | Blood | + + + + + + + | Performing | Address | City/State/Zipcode | Phone Number | | Organization | | | | + + + + + | [facility] | [address] | [place] [address] | [phone] | | LABORATORY | [address] | | [...] | [facility] | | | performed at [facility], [address] | | LABORATORY | | | [address] [facility], | | | | | [place] [address] | | | + + + + + + + | Specimen | + + | Blood | + + + + + + + | Performing | Address | City/State/Zipcode | Phone Number | | Organization | | | | + + + + + | [facility] | [address] | [place] [address] | [phone] | | LABORATORY | [address] | | [...] 1.1 | 0.70 - 1.30 mg/dL | [facility] | | | | | LABORATORY | + + + + + | BUN/CREAT | 17 | | [facility] | | | | | LABORATORY | + + + + + | CALCIUM | 9.1 | 8.5 - 10.5 mg/dL | [facility] | | | | | LABORATORY [...] | | | | | performed at [facility], [address] | | | | [address] [facility] [address], | | | | | [place] [address] | | | + + + + + + + | Specimen | + + | Blood | + + + + + + + | Performing | Address | City/State/Zipcode | Phone Number | | Organization | | | | + + + + + | [facility] | [address] | [place] [address] | [phone] | | LABORATORY | [address] | | | + + + + + Magnesium (05/23/2018 12:13 PM) + + + + + | Component | Value | Ref Range | Performed At | + + + + + | MAGNESIUM | 2.1Comment: Testing | 1.7 - 2.4 mg/dL | [facility] | | | performed at [facility] | | | | | [address] [facility];[place], [place] | | | | | [address] | | | + + + + + + + | Specimen | + + | Blood | + + + + + + + | Performing | Address | City/State/Zipcode | Phone Number | | Organization | | | | + + + + + | [facility] | [address] | [place] [address] | | + + + + + Basic metabolic panel (05/23/2018 12:13 PM) + + + + + | Component | Value | Ref Range | Performed At | + + + + + | SODIUM | 145 | 135 - 145 mmol/L | [facility] | + + + + + | POTASSIUM | 4.9Comment: SLT | 3.5 - 4.9 mmol/L | [facility] | | | HEMOLYSIS | | [...] 0.70 - 1.30 mg/dL | [facility] | + + + + + | BUN/CREAT | 12 | | [facility] | + + + + + | CALCIUM | 8.4 (L) | 8.5 - 10.5 mg/dL | [facility] | + + + + + | EGFR | >60Comment: GFR <60: | >60 mL/min/1.73m2 | [facility] | | | CHRONIC KIDNEY DISEASE, [...] the | | | | | MDRD TNMS traceable | | | | | equation.Testing | | | | | performed at [facility] | | | | | [facility];[place] | | | | | [address] | | | + + + + + + + | Specimen | + + | Blood | + + + + + + + | Performing | Address | City/State/Zipcode | Phone Number | | Organization | | | | + + + + + | [facility] | [address] | [place] [address] | | + + + + + CECE roa/kimberly (05/23/2018 12:13 PM) + + + + + | Component | Value | Ref Range | Performed At | + + + + + | WBC | 10.64 | 3.80 - 11.00 K/uL | [facility] | + + + + + | RBC | 4.68 | 4.20 - 5.70 M/uL | [facility] | + + + + + | HGB | 15.2 | 13.2 - 17.0 g/dL | [facility] | + + + + + | HCT | 44.3 | 39.0 - 50.0 % | [facility] | + + + + + | MCV | 94.5 | 80.0 - 100.0 fl | [facility] | + + + + + | MCH | 32.4 | 27.0 - 34.0 pg | [facility] | + + + + + | MCHC | 34.3 | 32.0 - 35.5 g/dL | [facility] | + + + + + | RDW SD | 47.3 | 37 - 53 fl | [facility] | + + + + + | PLT | 169 | 150 - 400 K/uL | [facility] | + + + [...] | BASOPHILS | 0.28 | % | [facility] | + + + + + | NEUTROPHILS ABS | 9.52 (H) | 1.90 - 7.40 K/uL | [facility] | + + + + + | LYMPHOCYTES ABS | 0.66 (L) | 1.00 - 3.90 K/uL | [facility] | + + + + + | MONOCYTES ABS | 0.41 | 0.00 - 0.80 K/uL | [facility] | + + + + + | EOSINOPHILS ABS | 0.02 | 0.00 - 0.50 K/uL | [facility] | + + + + + | BASOPHILS ABS | 0.03 | 0.00 - 0.10 K/uL | [facility] | + + + + + | MORPHOLOGY | RBC AND PLT MORPHOLOGY | | [facility] | | | APPEAR NORMAL | | | + + + + + | Diff Comment | SLIDE SCANNED, AGREES | | [facility] | | | WITH AUTOMATED | | | | | RESULTS.Comment: Testing | | | | | performed at [facility];[place] | | | | | [address];[place] | | | | | [address] | | | + + + + + + + | Specimen | + + | Blood | + + + + + + + | Performing | Address | City/State/Zipcode | Phone Number | | Organization | | | | + + + + + | [facility] | [address] | [place] [address] | | + + + + + Pathology histology - tissue (05/23/2018 11:00 AM) + + | Specimen | + + | Tissue | + + + + + | Narrative | Performed At | + + + | SPECIMEN(S): A LEFT LUNG BULLAE SPECIMEN SOURCE: A. LEFT LUNG | [facility] | | BULLAE CLINICAL HISTORY: Left lung [...] | lung parenchyma is pink and spongy. Survey Worker sections are | | | submitted in [...] component was | | | performed by [facility], [address] [place] [address] | | | (Shot Grinder Operator: Maranda Brown MD; CLIA# [id number]). | | | Professional interpretation was performed by [facility] | | | Diagnostics, [facility], [address] | | | [place] [address]. Diagnostician: Danny Delaney MD | | | [...] | | seen. Signed by: Jose Honeycutt Date/Time: 05/23/2018 10:56 AM | RADIOLOGY | + + + + + + | Narrative | Performed At | + + + | CHEST ONE VIEW CLINICAL INFORMATION: post-op COMPARISON: CT | [facility] | | CHEST WO CONTRAST (02/11/2018); FINDINGS: [...] Procedure Note | + + | Perfecto, Johan Results In - 05/23/2018 11:00 AM PST [...] | + + + + + | [facility] | [address] | [place] [address] | | + + + + + [...] | + + + + + | [facility] | [address] | [place] [address] | | + + + + + Protime-INR (05/23/2018 6:45 AM) + + + + + | Component | Value | Ref Range | Performed At | + + + + + | INR | 1.2Comment: REFERENCE | | [facility] | | | RANGE:0.9 - | [...] | | | | | performed at [facility];[address] | | | | | [address];[place] | | | | | [address] | | | + + + + + + + | Specimen | + + | Blood | + + + + + + + | Performing | Address | City/State/Zipcode | Phone Number | | Organization | | | | + + + + + | [facility] | [address] [facility] | [place] [address] | | + + + + + Type and screen (05/23/2018 6:31 AM) + + + + + | Component | Value | Ref Range | Performed At | + + + + + | ABO/RH(D) | O POSITIVE | | [facility] | + + + + + | ANTIBODY SCREEN | NEGATIVE | | [facility] | + + + + + | ARM BAND NUMBER | [id number] | | [facility] | | | performed at [facility];[address] | | | | | [address] [facility];[place], [place] | | | | | [address] | | | + + + + + + + | Specimen | + + | Blood | + + + + + + + | Performing | Address | City/State/Zipcode | Phone Number | | Organization | | | | + + + + + | [facility] | [address] | [place] [address] | | + + + + + in this encounter Visit Diagnoses + + | Diagnosis | + + | Lung bullae (HCC) - Primary | + + | Emphysematous bleb | + + Admitting Diagnoses + + | Diagnosis | [...] | | | Hours, First dose on Wed05/23/18 | | PST [...] PST | | | | +-------+ +--------+---+---+ +---+---+ | | | +---+---+ + +---------+ +---+---+---+ | electrolyte-A (PLASMALYTE-A) | New Bag | 05/23/2018 | | | | | solution Intravenous, | | 06:40 | | | | | Continuous, Starting Wed05/23/18 | | PST | | | | | at 0630, Pre-op | | | | | | + +---------+ +---+---+---+ + +---+ | | | + +---+ [...] | | | | First dose on 05/23/18 at 1230 | | PST | | [...] | | +---+---+ + +-------+ +--------+---+---+ | fentaNYL (SUBLIMAZE) injection | Given | 05/23/2018 | 25 mcg | | | | 25 mcg 25 mcg, Intravenous, | | 10:45 | | | | | Every 5 Min PRN, Pain, Option One | | PST | | | | | for pain scale 1-4/10. If no | | | | | | | relief, proceed to option 2., | | | | | | | Starting 05/23/18 at 1020, PACU | | | | | | + +-------+ +--------+---+---+ +---+---+ | | | +---+---+ + + + +--------+---+---+ | fentaNYL (SUBLIMAZE) injection | Given by | 05/23/2018 | 50 mcg | | | | 50 mcg 50 mcg, Intravenous, | Other | 10:56 | | | | | Every 5 Min PRN, Pain, Option One | | PST | | | | | for pain scale 5-10/10. If no | | | | | | | relief, proceed to option 2., | | | | | | | Starting 05/23/18 at 1020, PACU | | | | | | + + + +--------+---+---+ +---+---+ | | | +---+---+ + [...] PST | | | | +-------+ +--------+---+---+ +---+---+ | | | +---+---+ + + + +--------+---+---+ | HYDROmorphone (DILAUDID) | Given by | 05/23/2018 | 0.5 mg | | | | injection 0.5 mg 0.5 mg, | Other | 11:10 | | | | | Intravenous, Every 5 Min PRN, | | PST | | | | | Pain, Option Three for pain scale | | | | | | | 5-10. If no relief, contact | | | | | | | anesthesia provider., Starting | | | | | | | 05/23/18 at 1020, PACU | | | | | | + + + +--------+---+---+ + +---+ | | | + +---+ | lidocaine (LIDODERM) 5 % patch | | | 2 patch 2 patch, Transdermal, | | | Daily, First dose on Wed05/24/18 | | | at 0900 | | + +---+ | | | + +---+ + +-------+ +--------+---+---+ | magnesium hydroxide (MILK [...] +--------+---+---+ +---+---+ | | | +---+---+ + + + +------+---+---+ | morphine (PF) injection 2 mg 2 | Given by | 05/23/2018 | 2 mg | | | | mg, Intravenous, Every 5 Min | Other | 10:48 | | | | | PRN, Option Two for pain scale | | PST | | | | | -07/27.If no relief, proceed to | | | | | | | option 3., Starting Wed05/23/18 at | | | | | | | 1020, PACU | | | | | | + + + +------+---+---+ +---+---+ | | | +---+---+ + [...] 3 to 3.4, | | | Starting [facility] 05/23/18 at 1205 | | + +---+ | | | + +---+ | potassium chloride (K-DUR) CR | | | tablet 60 mEq 60 mEq, Oral, PRN, | | | for serum potassium less than 3, | | | Starting [facility] 05/23/18 at 1205 | | + +---+ | | | + +---+ | potassium chloride oral | | | solution 20 mEq 20 mEq, Oral, | | | PRN, for serum potassium 3.5 to | | | 3.7, Starting [facility] 05/23/18 at 1205 | | + +---+ | | | + +---+ | potassium chloride oral | | | solution 40 mEq 40 mEq, Oral, | | | PRN, for serum potassium 3 to | | | 3.4, Starting 05/23/18 at 1205 | | + +---+ | | | + +---+ | potassium chloride oral | | | solution 60 mEq 60 mEq, Oral, | | | PRN, for serum potassium less | | | than 3, Starting 05/23/18 at | | | 1205 | | + +---+ | | | + +---+ + +-------+ +------+---+---+ | warfarin (COUMADIN) tablet 6 mg | Given | 05/24/2018 | 6 mg | | | | 6 mg, Oral, Daily, First dose | | 09:49 | | | | | on 05/24/18 at 0900 | | PST | | | | + +-------+ +------+---+---+ +---+---+ | | | +---+---+ in this encounter
--- OUTSIDE RECORDS SUMMARY | ~2018-08-01 | XMS | Encounter Summary ---
Demographics + + + | Address | [address] | | | [place] [address] | + + + | Home Phone | | + + + | Preferred Language | Unknown | + + + | Marital Status | | + + + | Protestant Affiliation | 1013 | + + + | Race | Unknown | + + + | Ethnic Group | Unknown | + + + Author + + + | Author | [facility] [employer] | + + + | Organization | [facility] [facility] | + + + | Address | Unknown | + + + | Phone | Unavailable | + + + Support + + +---------+ + | Name | Relationship | Address | Phone | + + +---------+ + | Sebastien Champion | ECON | Unknown | | + + +---------+ + Care Team Providers + +------+ + | Care Folder Seamer Automatic Name | Role | Phone | + +------+ + | Maria Vieira PA-C | PCP | | + +------+ + Reason for Visit +--------+ + | Reason | Comments | +--------+ + | Other | [facility] Exam 04/25/2018 | +--------+ + Encounter Details +--------+ + + + + | Date | Type | Department | Care Team | Description | +--------+ + + + + | 05/16/ | Documentati | S[facility] Smith | Jennyfer Zarate MA | Other ([place] | | 2019 | on Only | Cardiology [facility] | | [facility] | | | | [address] | | Swollowing Function | | | | [address] | | Exam 04/25/2018) | | | | [place] [address] | | | | | | [phone] | | | +--------+ + + + [...] [address] | | | | | | [place] [address] | | | | | | [phone] | | | | | | | | +--------+---------+ + + + | 08/15/ | Office | Cardiology | Sarai Arce | | | 2018 | Visit | | [address] | | | | | | [address] | | | | | | [place] [address] | | | | | | [phone] | | | | | | | | +--------+---------+ + + + | 08/19/ | Office | General Surgery | Michele Motta, | | | 2018 | Visit | | MD Donna DEE | | | | | | [address] [facility] | | | | | | [place] [address] | | | | | | [phone] | | | | | | | | +--------+---------+ + + + as of this encounter Visit Diagnoses Not on filein this encounter"
--- OUTSIDE RECORDS SUMMARY | ~2018-08-01 | XMS | Encounter Summary ---
Demographics + + + | Address | [address] | | | [place] [address] | + + + | Home Phone | | + + + | Preferred Language | Unknown | + + + | Marital Status | | + + + | Hoahaoism Affiliation | 1013 | + + + | Race | Unknown | + + + | Ethnic Group | Unknown | + + + Author + + + | Author | [facility] | + + + | Organization | [facility] | + + + | Address | Unknown | + + + | Phone | Unavailable | + + + Support + + +---------+ + | Name | Relationship | Address | Phone | + + +---------+ + | Sebastien Champion | ECON | Unknown | | + + +---------+ + Care Team Providers + +------+ + | Care Cnc Lathe Machine Operator Name | Role | Phone | + +------+ + | Maria Vieira PA-C | PCP | | + +------+ + Reason for Visit +--------+ + | Reason | Comments | +--------+ + | Other | [facility] Stress Test 01/17/2018 | +--------+ + Encounter Details +--------+ + + + + | Date | Type | Department | Care Team | Description | +--------+ + + + + | 05/16/ | Documentati | [facility]ATH[facility] Reading | Tessa, Jennyfer Loera, LEYDI | Other ([facility] | | 2019 | on Only | Cardiology [place] | | Stress Test | | | | [address] | | 01/17/2018) | | | | [address] | | | | | | [place] [address] | | | | | | [phone] | | | +--------+ + + + [...] [address] | | | | | | [place] [address] | | | | | | [phone] | | | | | | | | +--------+---------+ + + + | 08/15/ | Office | Cardiology | Sarai Arce | | | 2018 | Visit | | [address] | | | | | | [address] | | | | | | [place] [address] | | | | | | [phone] | | | | | | | | +--------+---------+ + + + | 08/19/ | Office | General Surgery | Michele Motta, | | | 2018 | Visit | | MD Donna DEE | | | | | | [address] [place], | | | | | | [place] [address] | | | | | | [phone] | | | | | | | | +--------+---------+ + + + as of this encounter Visit Diagnoses Not on filein this encounter"
--- OUTSIDE RECORDS SUMMARY | ~2018-08-01 | XMS | Encounter Summary ---
Demographics + + + | Address | [address] | | | [place] [address] | + + + | Home Phone | | + + + | Preferred Language | Unknown | + + + | Marital Status | | + + + | Zoroastrianism Affiliation | 1013 | + + + | Race | Unknown | + + + | Ethnic Group | Unknown | + + + Author + + + | Author | [employer] | + + + | Organization | [facility] | + + + | Address | Unknown | + + + | Phone | Unavailable | + + + Support + + +---------+ + | Name | Relationship | Address | Phone | + + +---------+ + | Sebastien Champion | ECON | Unknown | | + + +---------+ + Care Team Providers + +------+ + | Care Blind Aide Name | Role | Phone | + +------+ + | Maria Vieira PA-C | PCP | | + +------+ + Encounter Details +--------+ + + + + | Date | Type | Department | Care Team | Description | +--------+ + + + + | 05/10/ | Hospital | [facility] | Samson Limon MD | | | 2019 | Encounter | [facility] | [address] | | | | | Preadmission | [place] [address] | | | | | Services [address] | [phone] | | | | | [place], [place] | | | | | | [...] (rare) Nerve damage (rare) Date Last Reviewed: 05/20/201619999109-6669 [employer]. [address] [place] [address]. All righ ts reserved. This information is [...] part or all of a lung. Sometimes [facility] use thoracotomy to operate on the esophagus [...] the lung (pulmonary embolism) Date Last Reviewed: 01/18/201619990501-0276 [employer]. [address] [place] [address]. All righ ts reserved. This information is [...] large incision is used Date Last Reviewed: 01/18/201619995037-4036 [employer]. [address] [place] [address]. All [facility] ts reserved. This information is not intended as a substitute for professional medical care. Always follow your healthcare professional's instructions. Outpatient Prescriptions Marked as Taking for the 05/10/18 encounter (Hospital Encounter) [facility] ROOM 2 Medication Sig INSTRUCTIONS albuterol [...] | | | | | [place] [address] | | | | | | [phone] | | | | | | | | +--------+---------+ + + + | 08/15/ | Office | Cardiology | Sarai Arce | | | 2018 | Visit | | [address] | | | | | | [address] | | | | | | [place] [address] | | | | | | [phone] | | | | | | | | +--------+---------+ + + + | 08/19/ | Office | General Surgery | Michele Motta, | | | 2018 | Visit | | MD Donna [address] | | | | | | [address] [place], | | | | | | [place] [address] | | | | | | [phone] | | | | | | | [...] | INR | 2.9Comment: REFERENCE | | [facility] | | | RANGE:0.9 - | [...] | | | | | performed at [facility];[address] | | | | | [address];[place] | | | | | [address] | | | + + + + + + + | Specimen | + + | Blood | + + + + + + + | Performing | Address | City/State/Zipcode | Phone Number | | Organization | | | | + + + + + | [facility] | [address] | [place] [address] | | + + + + + aPTT (05/10/2018 1:06 PM) + + + + + | Component | Value | Ref Range | Performed At | + + + + + | APTT | 37 (H)Comment: Testing | 23 - 32 seconds | [facility] | | | performed at [facility];[address] | | | | | [address];[place] | | | | | [address] | | | + + + + + + + | Specimen | + + | Blood | + + + + + + + | Performing | Address | City/State/Zipcode | Phone Number | | Organization | | | | + + + + + | [facility] | [address] | [place] [address] | | + + + + + [...] 14 | 8 - 25 mg/dL | [facility] | | | | | LABORATORY | + + + + + | CREATININE | 1.1 | 0.70 - 1.30 mg/dL | [facility] | | | | | LABORATORY | + + + + + | BUN/CREAT | 13 | | [facility] | | | | | LABORATORY | + + + + + | CALCIUM | 8.5 | 8.5 - 10.5 mg/dL | [facility] | | | | | LABORATORY | + + + + + | EGFR | >60Comment: GFR <60: | >60 mL/min/1.73m2 | [facility] | | | CHRONIC KIDNEY DISEASE, [...] | | | | | performed at [facility], [address] | | | | | [address] [place], | | | | | [place] [address] | | | + + + + + + + | Specimen | + + | Blood | + + + + + + + | Performing | Address | City/State/Zipcode | Phone Number | | Organization | | | | + + + + + | [facility] | [address] | [place] [address] | [phone] | | LABORATORY | [place] | | [...] | [facility] | | | performed at [facility], [address] | | LABORATORY | | | [address], | | | | | [place] [address] | | | + + + + + + + | Specimen | + + | Blood | + + + + + + + | Performing | Address | City/State/Zipcode | Phone Number | | Organization | | | | + + + + + | [facility] | [address] | [place] [address] | [phone] | | LABORATORY | [address] | | | + + + + + MRSA by PCR (05/10/2018 1:05 PM) + + + + + | Component | Value | Ref Range | Performed At | + + + + + | SOURCE | NARES(NOSE) | | [facility] | + + + + + | MRSA PCR | NEGATIVEComment: Testing | NEGATIVE | [facility] | | | performed at [facility];[address] | | | | | [address];[place] | | | | | [address] | | | + + + + + + + | Specimen | + + | Nasopharyngeal - | | Nares(Nose) | + + + + + + + | Performing | Address | City/State/Zipcode | Phone Number | | Organization | | | | + + + + + | [facility] | [address] | [place] [address] | | + + + + + Type and screen (05/10/2018 1:04 PM) + + + + + | Component | Value | Ref Range | Performed At | + + + + + | ABO/RH(D) | O POSITIVE | | [facility] | + + + + + | ANTIBODY SCREEN | NEGATIVETesting | | [facility] | | | performed at [facility];[address] | | | | | [address] [facility];[place], [place] | | | | | [address] | | | + + + + + + + | Specimen | + + | Blood | + + + + + + + | Performing | Address | City/State/Zipcode | Phone Number | | Organization | | | | + + + + + | [facility] | [address] | [place] [address] | | + + + + + in this encounter Visit Diagnoses Not on filein this encounter
--- OUTSIDE RECORDS SUMMARY | ~2018-08-01 | XMS | Encounter Summary ---
Demographics + + + | Address | [address] | | | [place] [address] | + + + | Home Phone | | + + + | Preferred Language | Unknown | + + + | Marital Status | | + + + | Yazidi Affiliation | 1013 | + + + | Race | Unknown | + + + | Ethnic Group | Unknown | + + + Author + + + | Author | [employer] | + + + | Organization | [facility] | + + + | Address | Unknown | + + + | Phone | Unavailable | + + + Support + + +---------+ + | Name | Relationship | Address | Phone | + + +---------+ + | Sebastien Champion | ECON | Unknown | | + + +---------+ + Care Team Providers + +------+ + | Care Greenkeeper Name | Role | Phone | + +------+ + | Maria Vieira PA-C | PCP | | + +------+ + Encounter Details +--------+ + + + + | Date | Type | Department | Care Team | Description | +--------+ + + + + | 06/22/ | Procedure | [facility] | | | | 2019 | [facility] | | | | | | Endoscopy [address] | | | | | | [place] | | | | | | [address] | | | +--------+ + + + [...] [place] | | | | | | [place] [address] | | | | | | [phone] | | | | | | | | +--------+---------+ + + + | 08/15/ | Office | Cardiology | Sarai Arce | | | 2019 | Visit | | [address] | | | | | | [address] | | | | | | [place] [address] | | | | | | [phone] | | | | | | | | +--------+---------+ + + + | 08/19/ | Office | General Surgery | Michele Motta, | | | 2019 | Visit | | MD Donna [address]EE | | | | | | [address] [place], | | | | | | [place] [address] | | | | | | [phone] | | | | | | | | +--------+---------+ + + + as of this encounter Visit Diagnoses Not on filein this encounter"
--- OUTSIDE RECORDS SUMMARY | ~2018-08-01 | XMS | Encounter Summary ---
Demographics + + + | Address | [address] | | | [place] [address] | + + + | Home Phone | | + + + | Preferred Language | Unknown | + + + | Marital Status | | + + + | Zoroastrian Affiliation | 1013 | + + + | Race | Unknown | + + + | Ethnic Group | Unknown | + + + Author + + + | Author | [employer] | + + + | Organization | [facility] | + + + | Address | Unknown | + + + | Phone | Unavailable | + + + Support + + +---------+ + | Name | Relationship | Address | Phone | + + +---------+ + | Sebastien Champion | ECON | Unknown | | + + +---------+ + Care Team Providers + +------+ + | Care Supervisor Asbestos Removal Name | Role | Phone | + [...] + | 05/16/ | Documentati | [facility] | Tessa, Jennyfer Loera, LEYDI | Other ([facility] | | 2019 | on Only | Cardiology Syl | | Stress Test | | | | [address] | | 01/17/2018) | | | | [address] | | | | | | [place] [address] | | | | | | [phone] | | | +--------+ + + + [...] [place]PH | | | | | | [place] [address] | | | | | | [phone] | | | | | | | | +--------+---------+ + + + | 08/15/ | Office | Cardiology | Sarai Arce | | | 2018 | Visit | | [address] | | | | | | [address] | | | | | | [place] [address] | | | | | | [phone] | | | | | | | | +--------+---------+ + + + | 08/19/ | Office | General Surgery | Michele Motta, | | | 2018 | Visit | | MD Donna DEE | | | | | | [address] [place], | | | | | | [place] [address] | | | | | | [phone] | | | | | | | | +--------+---------+ + + + as of this encounter Visit Diagnoses Not on filein this encounter"
--- OUTSIDE RECORDS SUMMARY | ~2018-08-01 | XMS | Encounter Summary ---
Demographics + + + | Address | [address] | | | [place] [address] | + + + | Home Phone | | + + + | Preferred Language | Unknown | + + + | Marital Status | | + + + | Hinduism Affiliation | 1013 | + + + | Race | Unknown | + + + | Ethnic Group | Unknown | + + + Author + + + | Author | [employer] | + + + | Organization | [facility] | + + + | Address | Unknown | + + + | Phone | Unavailable | + + + Support + + +---------+ + | Name | Relationship | Address | Phone | + + +---------+ + | Sebastien Champion | ECON | Unknown | | + + +---------+ + Care Team Providers + +------+ + | Care Maxillofacial Prosthetics Dentist Name | Role | Phone | + +------+ + | Maria Vieira PA-C | PCP | | + +------+ + Encounter Details +--------+ + + + + | Date | Type | Department | Care Team | Description | +--------+ + + + + | 06/06/ | Hospital | Located Within [facility] | Ernst [place], | Lung bullae (HCC) | | 2019 | Encounter | [facility] | [address] | | | | | [address] | [place], | | | | | [place] [address] | [place] [address] | | | | | [phone] | [phone] | | | | | | | [...] [place] | | | | | | [place] [address] | | | | | | [phone] | | | | | | | | +--------+---------+ + + + | 08/15/ | Office | Cardiology | Sarai Arce | | | 2018 | Visit | | [address] | | | | | | [address] [place] [address] | | | | | | [place] [address] | | | | | | [phone] | | | | | | | | +--------+---------+ + + + | 08/19/ | Office | General Surgery | Michele Motta, | | | 2018 | Visit | | MD Donna DEE | | | | | | [address] [place], | | | | | | [place] [address] | | | | | | [phone] | | | | | | | [...] | + + + + + | [facility] | [address] | [place] [address] | | + + + + + in this encounter Visit Diagnoses + + | Diagnosis | + + | Lung bullae (HCC) | + + | Emphysematous bleb | + +"
--- OUTSIDE RECORDS SUMMARY | ~2018-08-01 | XMS | Clinical Summary ---
Demographics + + + | Address | [address] | | | [place] [address] | + + + | Home Phone | | + + + | Preferred Language | Unknown | + + + | Marital Status | | + + + | Restorationist Affiliation | 1013 | + + + | Race | Unknown | + + + | Ethnic Group | Unknown | + + + Author + + + | Author | [facility] | | | and [place] | + + + | Organization | [facility] | | | [...] Team Providers + +------+ + | Care Ice Skating Teacher Name | Role | Phone | [...] +--------+ +---------+--------+ | MEDICARE | [facility] | [id number] | 08/18/19 | [phone] | | Medica [...] Vishnu | al/Fam | | 1956 | [phone] | [place] | | | [place] | | | 0 (Home) | [address] | + +--------+ +--------+ + + Advance Directives Patient has advance care planning documents on file. For more information, please contact:[facility] [place] [address]"
--- OUTSIDE RECORDS SUMMARY | ~2018-08-01 | XMS | Encounter Summary ---
Demographics + + + | Address | [address] | | | [place] [address] | + + + | Home Phone | | + + + | Preferred Language | Unknown | + + + | Marital Status | | + + + | Caodaism Affiliation | 1013 | + + + | Race | Unknown | + + + | Ethnic Group | Unknown | + + + Author + + + | Author | [facility] | + + + | Organization | [facility] | + + + | Address | Unknown | + + + | Phone | Unavailable | + + + Support + + +---------+ + | Name | Relationship | Address | Phone | + + +---------+ + | Sebastien Champion | ECON | Unknown | | + + +---------+ + Care Team Providers + +------+ + | Care Train Engineer Name | Role | Phone | [...] | | | | | | | ([facility]) | | | | | [...] + + | 05/23/ | Hospital | [facility] | Samson Limon MD | Lung bullae ([facility]); | | 2019 - | Encounter | [facility] | [address] | Lung bullae ([facility]) | | | | Floor [facility] | [place] [address] | | | 05/24/ | | [address] | [phone] | | | 2018 | | [place] [address] | | | | | | [phone] | | | +--------+ + + + [...] ARTHROSCOPY Allergies Allergen Reactions Spiriva Handihaler [Tiotropium Gardner Monohydrate] Shortness of Breath Prescriptions Prior to [...] 11/21/18 Follow up: Samson Limon MD [address] [facility] [address] Schedule an appointment as soon as possible for a visit on 06/07/2018 Post-Op Maria Vieira PA-C [address] [place] [id number] Schedule an appointment as soon as possible [...] [facility] [place] [address], [facility] [address] acetaminophen 500 MG tablet gabapentin 300 MG [...] information carefully each time. Talk to your press feeder broomcorn regarding the use of this medicine in children. Special care may be needed. What side effects may I notice from receiving this medicine? Side effects that you should report to your doctor or health restorative care technician as soon as p ossible: allergic reactions like skin rash, itching or hives, swelling of the face, lips, or tong ue worsening of mood, thoughts or actions of suicide or dying Side effects that usually do not require medical attention (report to your doctor or health restorative care technician if they continue or are bothersome): constipation [...] this medicine? Visit your doctor or health restorative care technician for regular checks on your progress. You may want to keep a record at home of how you feel your condition is responding to treatment. You may want to share this information with your doctor or health restorative care technician at each vis it. You should contact your doctor or health restorative care technician if your seizures get worse or if you have any new types of seizures. Do not stop taking this medicine or any of your seiz ure medicines unless instructed by your doctor or health restorative care technician. Stopping your me dicine suddenly can increase [...] dying should be reported to your health restorative care technician right away. Women who become while using this medicine may enroll in the [place] Antiep ileptic Drug Registry by calling . This registry collects informatio n about the safety of antiepileptic drug use during . NOTE:This sheet is a summary. It may not cover all possible information. If you have questi ons about this medicine, talk to your doctor, pharmacist, or health care provider. Copyright 2018 [employer] Methocarbamol tablets Brand Name: Robaxin What is [...] more often than directed. Talk to your press feeder broomcorn regarding the use of this medicine in children. Special care may be needed. What side effects may I notice from receiving this medicine? Side effects that you should report to your doctor or health restorative care technician as soon as p ossible: allergic reactions like skin rash, itching or hives, swelling of the face, lips, or tong ue breathing problems confusion seizures unusually weak or tired Side effects that usually do not require medical attention (report to your doctor or health restorative care technician if they continue or are bothersome): dizziness [...] this medicine? Tell your doctor or health restorative care technician if your symptoms do not start to [...] t o schedule a time Please call [phone] with any questions or if you need to reschedul e Please go to [facility] and get a 2-view Chest X-Ray done 30min before your appoint ment. An order has been placed for you Follow up with your shoe repairer, , in 2-4 weeks. Follow up with your primary care physician in 2-4 weeks. General Instructions The [facility] Cardiothoracic Surgery office will contact you within 72 hours of your hospital discharge. If you do not receive a phone call or have any concerns before then, please call our office Mon-Fri 8:00am-5:00pm at [phone]. Please make sure we have the best [...] (MOM) or Miralax Daily Monitoring Notify the [facility] Cardioth[facility] office of: Any weight gain [...] at your follo w up visit with [facility] - no later than 2 [...] to sexual relati ons, driving, and work. [id number] [facility]. [address] [place] [address], [place] [address]. All righ ts reserved. This information is [...] may be different fr om the original. [facility] Service: Cardiothoracic Surgery Progress Note ROOM: [address] [place] [address] Hospital Day: LOS: 1 day Post-Op Day: [...] hours. No results for input(s): PHART, PO2ART, [id number], [id number], BEART in the last 168 hours. Recent [...] [address] | | | | | | [place] [address] | | | | | | [phone] | | | | | | | | +--------+---------+ + + + | 08/15/ | Office | Cardiology | Sarai Arce | | | 2018 | Visit | | [address] | | | | | | [address] | | | | | | [place] [address] | | | | | | [phone] | | | | | | | | +--------+---------+ + + + | 08/19/ | Office | General Surgery | Michele Motta, | | | 2018 | Visit | | MD Donna [address] | | | | | | [address] [place], | | | | | | [place] [address] | | | | | | [phone] | | | | | | | [...] [facility] | [address] | [place] [address] | | + + + + + [...] | + + + + + | [facility] | [address] | [place] [address] | | + + + + + [...] | + + + + + | [facility] | [address] | [place] [address] | | + + + + + Magnesium (05/24/2018 3:59 AM) + + + + + | Component | Value | Ref Range | Performed At | + + + + + | MAGNESIUM | 2.2Comment: Testing | 1.7 - 2.4 mg/dL | [facility] | | | performed at [facility], [address] | | LABORATORY | | | [address], | | | | | [place] [address] | | | + + + + + + + | Specimen | + + | Blood | + + + + + + + | Performing | Address | City/State/Zipcode | Phone Number | | Organization | | | | + + + + + | [facility] | [address] | [place] [address] | [phone] | | LABORATORY | [address] | | [...] | [facility] | | | performed at [facility], [address] | | LABORATORY | | | [address] [facility], | | | | | [place] [address] | | | + + + + + + + | Specimen | + + | Blood | + + + + + + + | Performing | Address | City/State/Zipcode | Phone Number | | Organization | | | | + + + + + | [facility] | [address] | [place] [address] | [phone] | | LABORATORY | [address] | | [...] + | BUN/CREAT | 17 | | [facility] | | | | | LABORATORY | + + + + + | CALCIUM | 9.1 | 8.5 - 10.5 mg/dL | [facility] | | | | | LABORATORY | [...] | | | | | performed at [facility], [address] | | | | | [facility] [address], | | | | | [place] [address] | | | + + + + + + + | Specimen | + + | Blood | + + + + + + + | Performing | Address | City/State/Zipcode | Phone Number | | Organization | | | | + + + + + | [facility] | [address] | [place] [address] | [phone] | | LABORATORY | [address] | | | + + + + + Magnesium (05/23/2018 12:13 PM) + + + + + | Component | Value | Ref Range | Performed At | + + + + + | MAGNESIUM | 2.1Comment: Testing | 1.7 - 2.4 mg/dL | [facility] | | | performed at [facility] | | | | | [address] [facility];[place], [place] | | | | | [address] | | | + + + + + + + | Specimen | + + | Blood | + + + + + + + | Performing | Address | City/State/Zipcode | Phone Number | | Organization | | | | + + + + + | [facility] | [address] | [place] [address] | | + + + + + Basic metabolic panel (05/23/2018 12:13 PM) + + + + + | Component | Value | Ref Range | Performed At | + + + + + | SODIUM | 145 | 135 - 145 mmol/L | [facility] | + + + + + | POTASSIUM | 4.9Comment: SLT | 3.5 - 4.9 mmol/L | [facility] | | | HEMOLYSIS | | [...] 1.07 | 0.70 - 1.30 mg/dL | [facility] | + + + + + | BUN/CREAT | 12 | | [facility] | + + + + + | CALCIUM | 8.4 (L) | 8.5 - 10.5 mg/dL | [facility] | + + + + + | EGFR | >60Comment: GFR <60: | >60 mL/min/1.73m2 | [facility] | | | CHRONIC KIDNEY DISEASE, [...] the | | | | | MDRD SCMS traceable | | | | | equation.Testing | | | | | performed at [facility] | | | | | [facility];[place] | | | | | [address] | | | + + + + + + + | Specimen | + + | Blood | + + + + + + + | Performing | Address | City/State/Zipcode | Phone Number | | Organization | | | | + + + + + | [facility] | [address] | [place] [address] | | + + + + + CECE roa/kimberly (05/23/2018 12:13 PM) + + + + + | Component | Value | Ref Range | Performed At | + + + + + | WBC | 10.64 | 3.80 - 11.00 K/uL | [facility] | + + + + + | RBC | 4.68 | 4.20 - 5.70 M/uL | [facility] | + + + + + | HGB | 15.2 | 13.2 - 17.0 g/dL | [facility] | + + + + + | HCT | 44.3 | 39.0 - 50.0 % | [facility] | + + + + + [...] 0.02 | 0.00 - 0.50 K/uL | [facility] | + + + + + | BASOPHILS ABS | 0.03 | 0.00 - 0.10 K/uL | [facility] | + + + + + | MORPHOLOGY | RBC AND PLT MORPHOLOGY | | [facility] | | | APPEAR NORMAL | | | + + + + + | Diff Comment | SLIDE SCANNED, AGREES | | [facility] | | | WITH AUTOMATED | | | | | RESULTS.Comment: Testing | | | | | performed at [facility];[place] | | | | | [address];[place] | | | | | [address] | | | + + + + + + + | Specimen | + + | Blood | + + + + + + + | Performing | Address | City/State/Zipcode | Phone Number | | Organization | | | | + + + + + | [facility] | [address] | [place] [address] | | + + + + + Pathology histology - tissue (05/23/2018 11:00 AM) + + | Specimen | + + | Tissue | + + + + + | Narrative | Performed At | + + + | SPECIMEN(S): A LEFT LUNG BULLAE SPECIMEN SOURCE: A. LEFT LUNG | [facility] | | BULLAE CLINICAL HISTORY: [...] | lung parenchyma is pink and spongy. Informaticist sections are | | | submitted in [...] component was | | | performed by [facility], [address] [place] [address] | | | ([employer]: Maranda Brown MD; CLIA# [id number]). | | | Professional interpretation was performed by [facility] | | | Diagnostics, [facility], [address] | | | [place] [address]. Diagnostician: Danny Delaney MD | | | [...] | + + + + + | [facility] | [address] | [place] [address] | | + + + + + [...] | + + + + + | [facility] | [address] | [place] [address] | | + + + + + Protime-INR (05/23/2018 6:45 AM) + + + + + | Component | Value | Ref Range | Performed At | + + + + + | INR | 1.2Comment: REFERENCE | | [facility] | | | RANGE:0.9 - [...] | | | | performed at [facility];[address] | | | | | [address];[place] | | | | | [address] | | | + + + + + + + | Specimen | + + | Blood | + + + + + + + | Performing | Address | City/State/Zipcode | Phone Number | | Organization | | | | + + + + + | [facility] | [address] [address] | [place] [address] | | + + + + + Type and screen (05/23/2018 6:31 AM) + + + + + | Component | Value | Ref Range | Performed At | + + + + + | ABO/RH(D) | O POSITIVE | | [facility] | + + + + + | ANTIBODY SCREEN | NEGATIVE | | [facility] | + + + + + | ARM BAND NUMBER | [id number] | | [facility] | | | performed at [facility];[address] | | | | | [address] [facility];[place], [place] | | | | | [address] | | | + + + + + + + | Specimen | + + | Blood | + + + + + + + | Performing | Address | City/State/Zipcode | Phone Number | | Organization | | | | + + + + + | [facility] | [address] | [place] [address] | | + + + + + [...] 3 to 3.4, | | | Starting [facility] 05/23/18 at 1205 | | + +---+ | | | + +---+ | potassium chloride (K-DUR) CR | | | tablet 60 mEq 60 mEq, Oral, PRN, | | | for serum potassium less than 3, | | | Starting [facility] 05/23/18 at 1205 | | + +---+ | | | + +---+ | potassium chloride oral | | | solution 20 mEq 20 mEq, Oral, | | | PRN, for serum potassium 3.5 to | | | 3.7, Starting [facility] 05/23/18 at 1205 | | + +---+ [...]
--- OUTSIDE RECORDS SUMMARY | ~2018-08-01 | XMS | Encounter Summary ---
Demographics + + + | Address | [address] | | | [place] [address] | + + + | Home Phone | | + + + | Preferred Language | Unknown | + + + | Marital Status | | + + + | Worship Affiliation | 1013 | + + + | Race | Unknown | + + + | Ethnic Group | Unknown | + + + Author + + + | Author | [email or web address] | + + + | Organization | [facility] | + + + | Address | Unknown | + + + | Phone | Unavailable | + + + Support + + +---------+ + | Name | Relationship | Address | Phone | + + +---------+ + | Sebastien Champion | ECON | Unknown | | + + +---------+ + Care Team Providers + +------+ + | Care Welt Stitch Cleaner Name | Role | Phone | + +------+ + | Maria Vieira PA-C | PCP | | + +------+ + Reason for Visit + + + | Reason | Comments | + + + | Labs Only | [facility] 05/09/18 | + + + Encounter Details +--------+ + + + + | Date | Type | Department | Care Team | Description | +--------+ + + + + | 05/11/ | Documentati | SATHYA Clements | Jennyfer Zarate MA | Labs Only ([facility] | | 2019 | on Only | Cardiology [place] | | Labs 05/09/18) | | | | [address] [facility] [address] | | | | | | [facility] [address] | | | | | | [place] [address] | | | | | | [phone] | | | +--------+ + + + [...] | 08/05/ | Office | Pulmonology | Dary, Tristian, MD | | | 2018 | Visit | | [address] | | | | | | [place] [address] | | | | | | [phone] | | | | | | | | +--------+---------+ + + + | 08/15/ | Office | Cardiology | Sarai Arce | | | 2018 | Visit | | [address] | | | | | | [address] | | | | | | [place] [address] | | | | | | [phone] | | | | | | | | +--------+---------+ + + + | 08/19/ | Office | General Surgery | Michele Motta, | | | 2018 | Visit | | MD Donna [address]EE | | | | | | [address] | | | | | | [place] [address] | | | | | | [phone] | | | | | | | | +--------+---------+ + + + as of this encounter Visit Diagnoses Not on filein this encounter"
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
--- OUTSIDE RECORDS SUMMARY | ~2018-08-01 | XMS | Encounter Summary ---
Demographics + + + | Address | [address] | | | [place] [address] | + + + | Home Phone | | + + + | Preferred Language | Unknown | + + + | Marital Status | | + + + | Pentecostal Affiliation | 1013 | + + + | Race | Unknown | + + + | Ethnic Group | Unknown | + + + Author + + + | Author | [facility] | + + + | Organization | [facility] | + + + | Address | Unknown | + + + | Phone | Unavailable | + + + Support + + +---------+ + | Name | Relationship | Address | Phone | + + +---------+ + | Sebastien Champion | ECON | Unknown | | + + +---------+ + Care Team Providers + +------+ + | Care Yardage Control Operator Name | Role | Phone | [...] | | General | Diagnoses | | [facility] | | | | Surgery | | | Operating | | | | | Paraesophage | | Room [address] | | | | | al hernia | | [address] | | | | | Procedures | | [place], [place] | | | | | ROBOTIC | | [address] Phone: | | | | | ASSISTED | | [phone] | | | | | LAPAROSCOPIC | | Fax: | | | | | MIGUEL A | | [phone] | | | | | FUNDOPLICATI | | | | | | | ON | | | +--------+--------+ + + + + Encounter Details +--------+ + + + + | Date | Type | Department | Care Team | Description | +--------+ + + + + | 07/29/ | Anesthesia | [facility] | Emilee Thomas MD | | | 2019 | Event | [facility] | [address] | | | | | Operating Room [address] | [place] [address] | | | | | [facility] | [phone] | | | | | [place] [address] | | | | | | [phone] | | | +--------+ + + + + Anesthesia Record + + + + + | Procedure Name | Responsible | Anesthesia Start | Anesthesia Stop Time | | | Anesthesiologist | Time | | + + + + + | ROBOTIC ASSISTED | Meenakshi Cho MD | 07/29/18 1158 | 07/29/182055 | | LAPAROSCOPIC MIGUEL A | | | | | FUNDOPLICATION (N/A | | | | | Abdomen) | | | | + + + + + +----+---+ + + | Da | T | Event | Comment | | te | i | | | | | m | | | | | e | | | +----+---+ + + | 04 | 1 | An Start | Pre-anesthetic vital signs reassessed. Delay for INR - 1.2 | | /1 | 1 | | | | 2/ | 5 | | | | 20 | 8 | | | | 19 | | | | +----+---+ + + | | 1 | An | | | | 2 | Induction | | | | 0 | | | | | 3 | | | +----+---+ + + | | 1 | An | | | | 2 | Intubation | | | | 0 | | | | | 6 | | | +----+---+ + + | | 1 | Quick Note | Bed turned 180degrees | | | 2 | | | | | 2 | | | | | 2 | | | +----+---+ + + | | 1 | an desirae now | Incision after timeout BUE padded by sides Soft pillow under | | | 2 | | knees Gel pad under heels Head neutral on soft pillow | | | 5 | | | | | 0 | | | +----+---+ + + | | 1 | Quick Note | #60 Fr bougie inserted in esophagus slowly under direction of | | | 7 | | Motta | | | 3 | | | | | 0 | | | +----+---+ + + | | 1 | Quick Note | Mouth assessed and bougie repositioned to prevent tissue | | | 8 | | necrosis. | | | 1 | | | | | 3 | | | +----+---+ + + | | 1 | Quick Note | Pt taken out of reverse katia. | | | 9 | | | | | 2 | | | | | 5 | | | +----+---+ + + | | 1 | Quick Note | TOF 3/4 | | | 9 | | | | | 3 | | | | | 5 | | | +----+---+ + + | | 1 | Quick Note | Mali with char. | | | 9 | | | | | 4 | | | | | 9 | | | +----+---+ + + | | 2 | An | | | | 0 | Emergence | | | | 0 | | | | | 0 | | | +----+---+ + + | | 2 | Extubation | | | | 0 | | | | | 0 | | | | | 4 | | | +----+---+ + + | | 2 | an stop | | | | 0 | data | | | | 2 | | | | | 9 | | | +----+---+ + + | | 2 | An Stop | | | | 0 | | | | | 5 | | | | | 6 | | | +----+---+ + + +------+ | Meds | +------+ + + + | Name | Total | + + + | ceFAZolin (ANCEF) 1 g | 2 g | + + + | midazolam 1 mg/mL | 1 mg | + + + | fentanyl 50 mcg/mL | 100 mcg | + + + | lidocaine 2% | 90 mg | + + + | propofol bolus | 230 mg | + + + | ROCuronium 10 mg/mL | 265 mg | + + + | dexamethasone 4 mg/mL | 4 mg | + + + | ondansetron 2 mg/mL | 8 mg | + + + | HYDROmorphone 2 mg/mL | 2 mg | + + + | phenylephrine 100 mcg/mL | 400 mcg | + + + | glycopyrrolate 0.2 mg/mL | 1 mg | + + + | neostigmine | 5 mg | + + + | ceFAZolin (ANCEF) IVPB 2 g | 2 g | + + + | phenylephrine infusion | 16,435 mcg | + + + | remifentanil infusion | 1.8 mg | + + + | calcium chloride 10% | 1 g | + + + | dexmedetomidine in NS (PRECEDEX) | 8.44 mcg | | 400 mcg/100mL infusion | | + + + | plasmalyte-A | 1,000 mL | + + + | electrolyte-A (PLASMALYTE-A) | 2,100 mL | | solution | | + + + | NS | 1,000 mL | + + + + + | Name | + + | N2O | + + | O2 | + + | Air | + + | Sevoflurane-EX | + + | N2O | + + + + | No blood administrations on file. | + + +--------+ + + + | Type | Details | Placement | Removal | +--------+ + + + | Wound | 05/23/18; 1007; Incision; Chest; | 05/23/18 100 by | | | | Left | Dennis Harris RN | | +--------+ + + + | Wound | 07/29/18; 1947; Incision; | 07/29/181947 by | | | | Abdomen; estelle drain, 5 sites | Alisia Scott RN | | | | including drain | | | +--------+ + + + | Periph | Placement Date: 07/29/18; | 07/29/18 1105 by | 08/01/18 1111 by | | eratracy | Placement Time: 1105; Removal | Bernarda Barrientos RN | Vicky Jones | | IV | Date: 08/01/18; Removal Time: | | RN | | | 1111; Size (Gauge): 18 G; | | | | | Orientation: Left; Location: | | | | | Hand; Site Prep: | | | | | Chlorhexidine-Isopropyl Alcohol; | | | | | Insertion Attempts: 1 | | | +--------+ + + + | Periph | Placement Date: 07/29/18; | 07/29/18 1116 by | 07/31/182039 by | | eral | Placement Time: 1116; Removal | Bernarda Barrientos RN | Keli | | IV | Date: 07/31/18; Removal Time: | | MOOKIE Dennis | | | 2039; Size (Gauge): 16 G; | | | | | Orientation: Right; Location: | | | | | Hand; Site Prep: | | | | | Chlorhexidine-Isopropyl Alcohol; | | | | | Insertion Attempts: 1 | | | +--------+ + + + | ETT | Placement Date: 07/29/18; | 07/29/18 1206 by | 07/29/182003 by | | | Placement Time: 1206; Removal | Meenakshi Cho MD | Meenakshi Cho MD | | | Date: 07/29/18; Removal Time: | | | | | 2003; Mask Airway: Easy; Blade | | | | | Type: MAC; Blade Size: 3; ETT | | | | | Size (Fr): 7.5; Technique: Direct | | | | | Laryngoscope; Grade: I; | | | | | Insertion attempts: 1; | | | | | Confirmation: EtCO2, BBS, Direct | | | | | visualization; Intubation | | | | | Details: Easy, Atraumatic; Taped | | | | | at (cm): 23; Secured at: Lips | | | +--------+ + + + | Urethr | 07/29/18; 1215; Yes; Latex, | 07/29/18 1215 by | 07/30/18 0756 by | | al | Straight-tip; 16 Fr.; Per order | Sandra Lynn, | Vicky Jones, | | Cathet | | RN | RN | | er | | | | +--------+ + + + | Arteri | Placement Date: 07/29/18; | 07/29/181218 by | 07/29/182108 by | | al | Placement Time: 121; Removal | Meenakshi Cho MD | Alfreda Soto RN | | Line | Date: 07/29/18; Removal Time: | | | | | 2108; Arterial Line Cath Gauge: | | | | | 20; Laterality: Left; Location: | | | | | Radial; Site Prep: Alcohol; | | | | | Insertion Attempts: 1; Securement | | | | | Method: Taped; Patient | | | | | Tolerance: Other (Comment) (pt | | | | | intubated and sedated during | | | | | placement.) | | | +--------+ + + + | Closed | 07/29/18; 1909; 1; Abdomen; Bulb; | 07/29/181909 by | 08/01/18 0916 by | | /Sucti | 15 Fr.; Other (Comment) ( | Alisia Scott RN | Vicky Jones, | | on | removed at bedside ) | | RN | | Drain | | | | +--------+ + + + in this encounter Social History + +-------+ +--------+ + | [...] [address] | | | | | | [place] [address] | | | | | | [phone] | | | | | | | | +--------+---------+ + + + | 08/15/ | Office | Cardiology | Sarai Arce | | | 2018 | Visit | | [address] | | | | | | [address] | | | | | | [place] [address] | | | | | | [phone] | | | | | | | | +--------+---------+ + + + | 08/19/ | Office | General Surgery | Michele Motta, | | | 2018 | Visit | | MD Donna DEE | | | | | | [address] [place], | | | | | | [place] [address] | | | | | | [phone] | | | | | | | | +--------+---------+ + + + as of this encounter Visit Diagnoses Not on filein this encounter Administered Medications + +--------+ +-------+------+------+ | Medication Order | MAR | Action | Dose | Rate | Site | | | Action | Date | | | | + +--------+ +-------+------+------+ | calcium chloride 10 % injection | Given | | 0.5 g | | | | PRN, Starting 07/29/18 at | | 9 19:16 | | | | | 1916, Anesthesia Intra-op | | PDT | | | | + +--------+ +-------+------+------+ +-------+ +-------+---+---+ | Given | | 0.5 g | | | | | 9 19:25 | | | | | | PDT | | | | +-------+ +-------+---+---+ +---+---+ | | | +---+---+ + +-------+ +-----+---+---+ | ceFAZolin (ANCEF) injection | Given | | 2 g | | | | Intravenous, PRN, Starting Fri | | 9 18:03 | | | | | 07/29/18 at 1803, Anesthesia | | PDT | | | | | Intra-op | | | | | | + +-------+ +-----+---+---+ +---+---+ | | | +---+---+ + +-------+ +-----+---+---+ | ceFAZolin (ANCEF) IVPB 2 g 2 | Given | | 2 g | | | | g, Intravenous, Administer over | | 9 11:58 | | | | | 30 Minutes, Panel Wirer To O.R., Fri | | PDT | | | | | 07/29/18 at 1100, For 1 dose, Must | | | | | | | be completely infused before | | | | | | | incision is made. Redose every 4 | | | | | | | hours during procedure. | | | | | | + +-------+ +-----+---+---+ +---+---+ | | | +---+---+ + +-------+ +------+---+---+ | dexamethasone (DECADRON) 4 | Given | | 4 mg | | | | MG/ML injection PRN, Starting | | 9 20:29 | | | | | 07/29/18 at 2028, Anesthesia | | PDT | | | | | Intra-op | | | | | | + +-------+ +------+---+---+ +---+---+ | | | +---+---+ + +---------+ + +-------+---+ | dexmedetomidine in NS | New Bag | | 0.5 | 12.4 | | | (PRECEDEX) 400 mcg/100mL infusion | | 9 20:40 | mcg/kg/h | mL/hr | | | 0-1.5 mcg/kg/hr | | PDT | r | | | | 99.3 kg (0-37.2375 mL/hr, | | | | | | | rounded to 0-37.2 mL/hr), | | | | | | | Intravenous, at 0-37.2 mL/hr, | | | | | | | Titrated, Starting Wed07/29/18 at | | | | | | | 2100, In emergent situations, | | | | | | | more rapid titration may be | | | | | | | clinically indicated. | | | | | | + +---------+ + +-------+---+ + + + +---------+---+ | Rate/Dose Change | | 0.2 | 5 mL/hr | | | | 9 20:47 | mcg/kg/h | | | | | PDT | r | | | + + + +---------+---+ +---+---+ | | | +---+---+ + +---------+ +---+---+---+ | electrolyte-A (PLASMALYTE-A) | New Bag | | | | | | solution Intravenous, Continuous | | 9 16:30 | | | | | PRN, Starting Wed07/29/18 at | | PDT | | | | | 1630, Anesthesia Intra-op | | | | | | + +---------+ +---+---+---+ +---+---+ | | | +---+---+ + +-------+ +--------+---+---+ | fentaNYL (SUBLIMAZE) injection | Given | | 50 mcg | | | | Intravenous, PRN, Starting Fri | | 9 11:58 | | | | | 07/29/18 at 1158, Anesthesia | | PDT | | | | | Intra-op | | | | | | + +-------+ +--------+---+---+ +-------+ +--------+---+---+ | Given | | 50 mcg | | | | | 9 12:01 | | | | | | PDT | | | | +-------+ +--------+---+---+ +---+---+ | | | +---+---+ + +-------+ +--------+---+---+ | glycopyrrolate (ANABEL) | Given | | 0.8 mg | | | | injection PRN, Starting Fri | | 9 19:35 | | | | | 07/29/18 at 1935, Anesthesia | | PDT | | | | | Intra-op | | | | | | + +-------+ +--------+---+---+ +-------+ +--------+---+---+ | Given | | 0.2 mg | | | | | 9 19:49 | | | | | | PDT | | | | +-------+ +--------+---+---+ +---+---+ | | | +---+---+ + +-------+ +--------+---+---+ | HYDROmorphone (DILAUDID) | Given | | 0.4 mg | | | | injection Intravenous, PRN, | | 9 19:29 | | | | | Starting 07/29/18 at 1255, | | PDT | | | | | Anesthesia Intra-op | | | | | | + +-------+ +--------+---+---+ +-------+ +--------+---+---+ | Given | | 0.2 mg | | | | | 9 19:41 | | | | | | PDT | | | | +-------+ +--------+---+---+ | Given | | 0.4 mg | | | | | 9 20:06 | | | | | | PDT | | | | +-------+ +--------+---+---+ +---+---+ | | | +---+---+ + +-------+ +-------+---+---+ | lidocaine 2 % (MDV) 2 % | Given | | 90 mg | | | | injection Intravenous, PRN, | | 9 12:02 | | | | | Starting Wed07/29/18 at 1202, | | PDT | | | | | Anesthesia Intra-op | | | | | | + +-------+ +-------+---+---+ +---+---+ | | | +---+---+ + +-------+ +------+---+---+ | midazolam (VERSED) injection | Given | | 1 mg | | | | PRN, Starting Wed07/29/18 at | | 9 11:58 | | | | | 1158, Anesthesia Intra-op | | PDT | | | | + +-------+ +------+---+---+ +---+---+ | | | +---+---+ + +-------+ +------+---+---+ | neostigmine (PROSTIGMINE) | Given | | 4 mg | | | | injection PRN, Starting Fri | | 9 19:35 | | | | | 07/29/18 at 1935, Anesthesia | | PDT | | | | | Intra-op | | | | | | + +-------+ +------+---+---+ +-------+ +------+---+---+ | Given | | 1 mg | | | | | 9 19:49 | | | | | | PDT | | | | +-------+ +------+---+---+ +---+---+ | | | +---+---+ + +-------+ +------+---+---+ | ondansetron (ZOFRAN) injection | Given | | 4 mg | | | | PRN, Nausea, Vomiting, Starting | | 9 19:23 | | | | | 07/29/18 at 1923, Anesthesia | | PDT | | | | | Intra-op | | | | | | + +-------+ +------+---+---+ +-------+ +------+---+---+ | Given | 4/12/201 | 4 mg | | | | | 9 20:29 | | | | | | PDT | | | | +-------+ +------+---+---+ +---+---+ | | | +---+---+ + +-------+ +---------+---+---+ | phenylephrine (RAMAN-SYNEPHRINE) | Given | | 100 mcg | | | | 100 mcg/mL injection | | 9 13:42 | | | | | Intravenous, PRN, Starting Fri | | PDT | | | | | 07/29/18 at 1210, Anesthesia | | | | | | | Intra-op | | | | | | + +-------+ +---------+---+---+ +-------+ +---------+---+---+ | Given | | 100 mcg | | | | | 9 18:11 | | | | | | PDT | | | | +-------+ +---------+---+---+ | Given | | 100 mcg | | | | | 9 19:22 | | | | | | PDT | | | | +-------+ +---------+---+---+ +---+---+ | | | +---+---+ + + + +---------+ +---+ | phenylephrine infusion | Rate/Dos | | 70 | 42 mL/hr | | | Continuous PRN, Starting Fri | e Change | 9 19:11 | mcg/min | | | | 07/29/18 at 1210, Anesthesia | | PDT | | | | | Intra-op | | | | | | + + + +---------+ +---+ + + +---------+ +---+ | Rate/Dose Change | | 40 | 24 mL/hr | | | | 9 19:30 | mcg/min | | | | | PDT | | | | + + +---------+ +---+ | Rate/Dose Change | | 25 | 15 mL/hr | | | | 9 19:31 | mcg/min | | | | | PDT | | | | + + +---------+ +---+ +---+---+ | | | +---+---+ + +-------+ +--------+---+---+ | propofol (DIPRIVAN) injection | Given | | 180 mg | | | | Intravenous, PRN, Starting Fri | | 9 12:01 | | | | | 07/29/18 at 1201, Anesthesia | | PDT | | | | | Intra-op | | | | | | + +-------+ +--------+---+---+ +-------+ +-------+---+---+ | Given | | 50 mg | | | | | 9 20:17 | | | | | | PDT | | | | +-------+ +-------+---+---+ +---+---+ | | | +---+---+ + +---------+ + +-------+---+ | remifentanil infusion | New Bag | | 0.05 | 14.9 | | | Continuous PRN, Starting Fri | | 9 13:21 | mcg/kg/m | mL/hr | | | 07/29/18 at 1321, Anesthesia | | PDT | in | | | | Intra-op | | | | | | + +---------+ + +-------+---+ + + + +-------+---+ | Rate/Dose Change | | 0.07 | 20.9 | | | | 9 13:33 | mcg/kg/m | mL/hr | | | | PDT | in | | | + + + +-------+---+ | Rate/Dose Change | | 0.05 | 14.9 | | | | 9 13:42 | mcg/kg/m | mL/hr | | | | PDT | in | | | + + + +-------+---+ +---+---+ | | | +---+---+ + +-------+ +-------+---+---+ | rocuronium (ZEMURON) injection | Given | | 20 mg | | | | PRN, Starting 07/29/18 at | | 9 17:10 | | | | | 1201, Anesthesia Intra-op | | PDT | | | | + +-------+ +-------+---+---+ +-------+ +-------+---+---+ | Given | | 10 mg | | | | | 9 17:44 | | | | | | PDT | | | | +-------+ +-------+---+---+ | Given | | 10 mg | | | | | 9 18:22 | | | | | | PDT | | | | +-------+ +-------+---+---+ +---+---+ | | | +---+---+ + +---------+ +---+---+---+ | sodium chloride 0.9 % infusion | New Bag | | | | | | Continuous PRN, Starting Fri | | 9 12:17 | | | | | 07/29/18 at 1217, Anesthesia | | PDT | | | | | Intra-op | | | | | | + +---------+ +---+---+---+ +---+---+ | | | +---+---+ in this encounter"
--- OUTSIDE RECORDS SUMMARY | ~2018-08-01 | XMS | Encounter Summary ---
Demographics + + + | Address | [address] | | | [place] [address] | + + + | Home Phone | | + + + | Preferred Language | Unknown | + + + | Marital Status | | + + + | Druze Affiliation | 1013 | + + + | Race | Unknown | + + + | Ethnic Group | Unknown | + + + Author + + + | Author | [employer] | + + + | Organization | [facility] [employer] [facility] | + + + | Address | Unknown | + + + | Phone | Unavailable | + + + Support + + +---------+ + | Name | Relationship | Address | Phone | + + +---------+ + | Sebastien Champion | ECON | Unknown | | + + +---------+ + Care Team Providers + +------+ + | Care Home Health Care Physician Name | Role | Phone | + +------+ + | Maria Vieira PA-C | PCP | | + +------+ + Reason for Visit + + + | Reason | Comments | + + + | Pre-op Exam | Patient is being seen today for pre-op surgery scheduled | | | 07/29/18 and to review EGD result. | + + + Encounter Details +--------+ + + + + | Date | Type | Department | Care Team | Description | +--------+ + + + + | 07/21/ | Surgical | [facility] | Michele Motta, | Gastroesophageal | | 2019 | Consult | General Surgery [address] | [address] | reflux disease with | | | | [address] | [address], | hiatal hernia | | | | [place], [place] | [place] [address] | (Primary Dx) | | | | [address] | [phone] | | | | | [phone] | | | +--------+ + + + [...] + + + | Blood Pressure | 162/113 | 07/21/2018 3:38 PM PDT | + + + + | Pulse | 80 | 07/21/2018 3:38 PM PDT | + + + + | Temperature | 36.1 C (97 F) | 07/21/2018 3:38 PM PDT | + + + + | Respiratory Rate | - | - | + + + + | Oxygen Saturation | 97% | 07/21/2018 3:38 PM PDT | + + + + | Inhaled Oxygen | - | - | | Concentration | | | + + + + | Weight | 99.8 kg (220 lb) | 07/21/2018 3:38 PM PDT | + + + + | Height | 198.1 cm (6' 6") | 07/21/2018 3:38 PM PDT | + + + + | Body Mass Index | 25.42 | 07/21/2018 3:38 PM PDT | + + + + in this encounter Progress Notes Michele Motta MD - 07/21/2018 3:45 PM PDTFormatting of this note may be different from the original. Subjective: Patient ID: Mason woodard 62 y.o.male. This patient returns for preoperative visit prior to laparoscopic hiatal hernia repair alma holland. We have performed an upper endoscopy on this patient and saw only mil d esophagitis. Interestingly, a hiatal hernia was not obvious on endoscopy but it is quite definitive on CT. Patient continues to experience daily episodes of reflux and heartburn. During today's preoperative visit his H and P was updated. That means of some of the follow ing record was copied and brought forward into today's documentation. It was updated as toby sandoval. HPI This 62-year-old male has some documented emphysematous changes of his lungs. About 1 yea r ago he began experiencing activity altering shortness of breath with any physical activity . He was evaluated by his primary care provider and then later referred to pulmonology. Various inhalers were tried without improvement. He underwent a cardiac workup and a CT sc an of the chest. CT of the chest showed emphysematous changes with bulla formation in both lungs primarily right apex and left base. Also identified was a medium-sized paraesophage al hernia with approximately half of the stomach residing above the diaphragm. In retrospe ct patient began "grazing" style eating with frequent small meals. This started with an in crease in activity and more exercise however that lifestyle change began to wane after about a year when he noticed increasing shortness of breath. Patient has daily episodes of hear tburn which is unbearable without ongoing PPI use. Patient frequently wakes up at night wi th heartburn requiring consumption of antacids. There is mild voice hoarseness. No vomit ing. No history of melena or hematochezia. Review of Systems Constitutional: Positive for fatigue. Negative for activity change, appetite change, chills , diaphoresis, feverand unexpected weight change. HENT: Negative for sore throat, tinnitus, trouble swallowingand voice change. Respiratory: Positive for shortness of breath. Negative for cough, choking, chest tightness , wheezingand stridor. Cardiovascular: Negative for chest painand leg swelling. Gastrointestinal: Negative for abdominal pain, constipation, diarrhea, nauseaand vomiting . Musculoskeletal: Negative for back pain, myalgias, neck painand neck stiffness. Skin: Negative for rashand wound. Allergic/Immunologic: Negative for food allergies. Neurological: Negative for dizziness, weakness, light-headedness, numbnessand headaches. Hematological: Bruises/bleeds easily. Psychiatric/Behavioral: Negative for self-injury, sleep disturbanceand suicidal ideas. Past Medical History Diagnosis Date Asthma Atrial fibrillation (HCC) Chronic obstructive pulmonary disease (HCC) Hypertension Past Surgical History Procedure Laterality Date CHOLECYSTECTOMY HERNIA REPAIR OTHER SURGICAL HISTORY Skull fracture surgery OTHER SURGICAL HISTORY Ruptured lungs SPLENECTOMY SPLENECTOMY N/A 2000 Current Outpatient Prescriptions on File Prior to Visit Medication Sig Dispense Refill albuterol (PROVENTIL HFA;VENTOLIN HFA) 108 (90 Base) MCG/ACT inhaler Inhale 2 puffs int o the lungs. budesonide-formoterol (SYMBICORT) 160-4.5 MCG/ACT inhaler Inhale 2 puffs into the lungs 2 (two) times daily. 1 Inhaler 12 metoprolol (TOPROL-XL) 100 MG 24 hr tablet Take 2 tablets by mouth daily. 135 tablet 3 omeprazole (PRILOSEC) 20 MG capsule Take 20 mg by mouth. warfarin (COUMADIN) 4 MG tablet Take 50 mg by mouth once a week. No current facility-administered medications on file prior to visit. Allergies Allergen Reactions Spiriva Handihaler [Tiotropium [place] Monohydrate] Shortness of Breath SocialHistory Social History Social History Marital status: Spouse [...] Social History Narrative No narrative on file Family History Problem Relation Age of Onset Cancer Mother Lung cancer COPD Father Emphysema Father Objective Objective: Physical Exam BP (!) 162/113 (BP Location: Right upper arm, Patient Position: Sitting) | Pulse 80 | Tem p 97 F (36.1 C) (Oral) | Ht 1.981 m (6' 6") | Wt 99.8 kg (220 lb) | SpO2 97% | BMI 2 5.42 kg/m Constitutional: He is oriented to person, place, and time. He appears well-developedand w ell-nourished. Non-toxic appearance. He does not appear ill. No distress. HENT: Head: Normocephalicand atraumatic. Mouth/Throat: No oropharyngeal exudate. Eyes: Pupils are equal, round, and reactive to light. Conjunctivaeand EOMare normal. No scleral icterus. Neck: Trachea normal, normal range of motionand phonation normal. Neck supple. No trachea l deviationpresent. No thyromegalypresent. Cardiovascular: Normal rate, regular rhythmand normal heart sounds. No murmurheard. Pulmonary/Chest: Effort normaland breath sounds normal. No respiratory distress. Abdomina/Gl: Soft. Normal appearanceand bowel sounds are normal. He exhibits no distensio nand no mass. There is no tenderness. There is no reboundand no guarding. No hernia. Musculoskeletal: Normal range of motion. He exhibits no edemaor tenderness. Lymphadenopathy: He has no cervical adenopathy. Neurological: He is alertand oriented to person, place, and time. No cranial nerve defici t. Coordinationnormal. Skin: Skin is warm, dryand intact. No cyanosis. Nails show no clubbing. Psychiatric: He has a normal mood and affect. His behavior is normal. Judgmentand thought contentnormal. Nursing noteand vitalsreviewed. 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 now status post thoracic bleb resection. Breathing is improved. Plan: Robotic-assisted laparoscopic hiatal hernia repair Risks, benefits, alternatives and planned technique were discussed with patient and any fam jeanne members present during today's encounter. Opportunities were given for questions and an swers. Risks discussed included but were not limited to bleeding, infection and injuries to adjacent structures. Patient verbalizes understanding and wishes to proceed with surgery as recommended. in this encounter Plan of Treatment +--------+---------+ + + + | Date | Type | Specialty | Care Team | Description | +--------+---------+ + + + | 08/05/ | Office | Pulmonology | Dary, Tristian, MD | | | 2018 | Visit | | [address] | | | | | | [place] [address] | | | | | | [phone] | | | | | | | | +--------+---------+ + + + | 08/15/ | Office | Cardiology | Sarai Arce | | | 2018 | Visit | | [address] | | | | | | [address] | | | | | | [place] [address] | | | | | | [phone] | | | | | | | | +--------+---------+ + + + | 08/19/ | Office | General Surgery | Michele Motta, | | | 2018 | Visit | | [address] | | | | | | [address] [facility] | | | | | | [place] [address] | | | | | | [phone] | | | | | | | | +--------+---------+ + + + as of this encounter Visit Diagnoses + + | Diagnosis | + + | Gastroesophageal reflux disease with hiatal hernia - Primary | + + | Esophageal reflux | + +
--- OUTSIDE RECORDS SUMMARY | ~2018-08-01 | XMS | Encounter Summary ---
Demographics + + + | Address | [address] | | | [place] [address] | + + + | Home Phone | | + + + | Preferred Language | Unknown | + + + | Marital Status | | + + + | Latter Day Affiliation | 1013 | + + + | Race | Unknown | + + + | Ethnic Group | Unknown | + + + Author + + + | Author | [employer] | + + + | Organization | [facility] | + + + | Address | Unknown | + + + | Phone | Unavailable | + + + Support + + +---------+ + | Name | Relationship | Address | Phone | + + +---------+ + | Sebastien Champion | ECON | Unknown | | + + +---------+ + Care Team Providers + +------+ + | Care Used Car Sales Manager Name | Role | Phone | + +------+ + | Maria Vieira PA-C | PCP | | + +------+ + Reason for Visit + + + | Reason | Comments | + + + | Follow-up | Patient is being seen today to follow up on hiatal hernia and | | | discuss surgery. Pt stated he had a Left VATS/Resection of | | | large bullae done 05/23/[address] Limon. Pt reports Acid reflux | | | and pt is taking protonix for it. Pt denies trouble swallowing, | | | abdominal pain, nausea, vomiting, constipation and diarrhea. | + + + Encounter Details +--------+---------+ + + + | Date | Type | Department | Care Team | Description | +--------+---------+ + + + | 06/06/ | Office | [facility] | Michele Motta, | 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) | | | | [address] | [address] [place], | | | | | [place], [place] | [place] [address] | | | | | [address] | [phone] | | | | | [phone] | | | +--------+---------+ + + + [...] + + + | Blood Pressure | 133/98 | 06/06/2018 10:47 AM PST | + + + + | Pulse | 93 | 06/06/2018 10:47 AM PST | + + + + | Temperature | 36.6 C (97.8 F) | 06/06/2018 10:47 AM PST | + + + + | Respiratory Rate | - | - | + + + + | Oxygen Saturation | 96% | 06/06/2018 10:47 AM PST | + + + + | Inhaled Oxygen | - | - | | Concentration | | | + + + + | Weight | 104.3 kg (230 lb) | 06/06/2018 10:47 AM PST | + + + + | Height | 198.1 cm (6' 6") | 06/06/2018 10:47 AM PST | + + + + | Body Mass Index | 26.58 | 06/06/2018 10:47 AM PST | + + + + in this encounter Progress Notes Michele Motta MD - 06/06/2018 10:30 AM PSTFormatting of this note may be different from the original. Subjective: Patient ID: Mason Champion is a 62 y.o. male. HPI This patient with a known large hiatal hernia has now undergone recent thoracoscopic resect ion of large pulmonary bleb. That surgery was done earlier this month and went well. Review of Systems Objective: Physical Exam Constitutional: He is oriented to person, place, and time. He appears well-developed and we ll-nourished. No distress. Eyes: Pupils are equal, round, and reactive to light. Neck: Normal range of motion. Neck supple. Cardiovascular: Normal rate and regular rhythm. Pulmonary/Chest: Effort normal and breath sounds normal. Abdomina/Gl: Soft. Bowel sounds are normal. There is no tenderness. Neurological: He is alert and oriented to person, place, and time. Skin: Skin is dry. Capillary refill takes less than 2 seconds. Psychiatric: He has a normal mood and affect. His behavior is normal. Judgment and thought content normal. Vitals reviewed. esophagram images were reviewed. This study confirms normal esophageal motility by barium swallow criteria. There is abundant spontaneous reflux. Interesting the patient also has silent aspiration noted during the study but not because of delayed esophageal emptying. Ken luke saying the study also confirmed a hiatal hernia which was already recognized. Assessment and Plan: Assessment: Patient has known hiatal hernia and will likely benefit significantly from anti reflux surgery. Before we do that we will do an upper endoscope to evaluate the status of t he tissue and rule out any surprises such as esophageal malignancy due to long-standing refl ux. No need to perform pH study. Plan: Schedule patient for EGD-diagnostic. I would like to put a little more time between his thoracoscopy and any laparoscopic procedure but not too long. in this encounter Plan of Treatment +--------+---------+ + + + | Date | Type | Specialty | Care Team | Description | +--------+---------+ + + + | 08/05/ | Office | Pulmonology | Tristian Foote MD | | | 2018 | Visit | | [address] | | | | | | [place] [address] | | | | | | [phone] | | | | | | | | +--------+---------+ + + + | 08/15/ | Office | Cardiology | Sarai Arce | | | 2018 | Visit | | [address] | | | | | | [address] | | | | | | [place] [address] | | | | | | [phone] | | | | | | | | +--------+---------+ + + + | 08/19/ | Office | General Surgery | Michele Motta, | | | 2018 | Visit | | MD [address] | | | | | | [address] [facility] | | | | | | [place] [address] | | | | | | [phone] | | | | | | | [...] + | Diagnosis | + + | Paraesophageal hernia - Primary | + + | Diaphragmatic hernia without mention of obstruction or gangrene | + +
--- OUTSIDE RECORDS SUMMARY | ~2018-08-01 | XMS | Encounter Summary ---
Demographics + + + | Address | [address] | | | [place] [address] | + + + | Home Phone | | + + + | Preferred Language | Unknown | + + + | Marital Status | | + + + | Faith Affiliation | 1013 | + + + | Race | Unknown | + + + | Ethnic Group | Unknown | + + + Author + + + | Author | [employer] | + + + | Organization | [facility] | + + + | Address | Unknown | + + + | Phone | Unavailable | + + + Support + + +---------+ + | Name | Relationship | Address | Phone | + + +---------+ + | Sebastien Champion | ECON | Unknown | | + + +---------+ + Care Team Providers + +------+ + | Care Field Handyman Name | Role | Phone | + [...] | Drive | | | | | ([facility]) | [address], | [place], [place] | | | | | | [place] [address] | [address] Phone: | | | | | | Phone: | [phone] | | | | | | [phone] | Fax: | | | | | | Fax: | [phone] | | | | | | [phone] | | + + + + + + + Encounter Details +--------+ + + + + | Date | Type | Department | Care Team | Description | +--------+ + + + + | 05/10/ | Initial | [facility] | Samson Limon MD | Lung bullae (HCC) | | 2019 | consult | Cardiothoracic | [address] | (Primary Dx) | | | | Surgery [address] | [place] [address] | | | | | [address] | [phone] | | | | | [place], [place] | | | | | | [address] | | | | | | [phone] | | | +--------+ + + + [...] 2000 Allergies Allergen Reactions Spiriva Handihaler [Tiotropium [place] Monohydrate] Shortness of Breath Prior to Admission [...] [address] | | | | | | [place] [address] | | | | | | [phone] | | | | | | | | +--------+---------+ + + + | 08/15/ | Office | Cardiology | Sarai Arce | | | 2018 | Visit | | [address] | | | | | | [address] | | | | | | [place] [address] | | | | | | [phone] | | | | | | | | +--------+---------+ + + + | 08/19/ | Office | General Surgery | Michele Motta, | | | 2018 | Visit | | MD [address] | | | | | | [address] [facility] [place], | | | | | | [place] [address] | | | | | | [phone] | | | | | | | [...]
--- OUTSIDE RECORDS SUMMARY | ~2018-08-01 | XMS | Encounter Summary ---
Demographics + + + | Address | [address] | | | [place] [address] | + + + | Home Phone | | + + + | Preferred Language | Unknown | + + + | Marital Status | | + + + | Episcopal Affiliation | 1013 | + + + | Race | Unknown | + + + | Ethnic Group | Unknown | + + + Author + + + | Author | [employer] | + + + | Organization | [facility] [employer] [facility] | + + + | Address | Unknown | + + + | Phone | Unavailable | + + + Support + + +---------+ + | Name | Relationship | Address | Phone | + + +---------+ + | Sebastien Champion | ECON | Unknown | | + + +---------+ + Care Team Providers + +------+ + | Care Economics Lecturer Name | Role | Phone | + [...] | | General | Diagnoses | | [facility] | | | | Surgery | | | Operating | | | | | Paraesophage | | Room [address] | | | | | al hernia | | [address] | | | | | Procedures | | [place], [place] | | | | | [place] | | [address] Phone: | | | | | ASSISTED | | [phone] | | | | | LAPAROSCOPIC | | Fax: | | | | | MIGUEL A | | [phone] | | | | | FUNDOPLICATI | [...] | | | 2019 | Event | [facility] | [address] [facility] | | | | | Operating Room [address] | [place] [address] | | | | | [facility] | [phone] | | | | | [place] [address] | | | | | | [phone] | | | +--------+ + + + [...] [address] | | | | | | [place] [address] | | | | | | [phone] | | | | | | | | +--------+---------+ + + + | 08/15/ | Office | Cardiology | Sarai Arce | | | 2018 | Visit | | [address] | | | | | | [address] | | | | | | [place] [address] | | | | | | [phone] | | | | | | | | +--------+---------+ + + + | 08/19/ | Office | General Surgery | Michele Motta, | | | 2018 | Visit | | MD [address] | | | | | | [address] [place], | | | | | | [place] [address] | | | | | | [phone] | | | | | | | [...] | | | | | 30 Minutes, Retail Department Manager To O.R., Fri | | PDT | [...]
--- OUTSIDE RECORDS SUMMARY | ~2018-08-01 | XMS | Encounter Summary ---
Demographics + + + | Address | [address] | | | [place] [address] | + + + | Home Phone | | + + + | Preferred Language | Unknown | + + + | Marital Status | | + + + | Protestant Affiliation | 1013 | + + + | Race | Unknown | + + + | Ethnic Group | Unknown | + + + Author + + + | Author | [employer] | + + + | Organization | [facility] [employer] [facility] | + + + | Address | Unknown | + + + | Phone | Unavailable | + + + Support + + +---------+ + | Name | Relationship | Address | Phone | + + +---------+ + | Sebastien Champion | ECON | Unknown | | + + +---------+ + Care Team Providers + +------+ + | Care Bookmobile Clerk Name | Role | Phone | + +------+ + | Maria Vieira PA-C | PCP | | + +------+ + Reason for Visit +--------+ + | Reason | Comments | +--------+ + | Other | Needs to speak w/ Registered Nurse | +--------+ + Encounter Details +--------+ + + + + | Date | Type | Department | Care Team | Description | +--------+ + + + + | 06/20/ | Telephone | [facility] | Michele Motta, | Other (Needs to | | 2019 | | General Surgery [address] | MD [address] | speak w/ Registered | | | | [address] | [address] [place], | Nurse) | | | | [place], [place] | [place] [address] | | | | | [address] | [phone] | | | | | [phone] | | | +--------+ + + + [...] [address] | | | | | | [place] [address] | | | | | | [phone] | | | | | | | | +--------+---------+ + + + | 08/15/ | Office | Cardiology | Sarai Arce | | | 2018 | Visit | | [address] | | | | | | [address] | | | | | | [place] [address] | | | | | | [phone] | | | | | | | | +--------+---------+ + + + | 08/19/ | Office | General Surgery | Michele Motta, | | | 2018 | Visit | | MD [address]EE | | | | | | [address] [place], | | | | | | [place] [address] | | | | | | [phone] | | | | | | | | +--------+---------+ + + + as of this encounter Visit Diagnoses Not on filein this encounter"
--- OUTSIDE RECORDS SUMMARY | ~2018-08-01 | XMS | Encounter Summary ---
Demographics + + + | Address | [address] | | | [place] [address] | + + + | Home Phone | | + + + | Preferred Language | Unknown | + + + | Marital Status | | + + + | Tenriism Affiliation | 1013 | + + + | Race | Unknown | + + + | Ethnic Group | Unknown | + + + Author + + + | Author | [employer] | + + + | Organization | [facility] [employer] [facility] | + + + | Address | Unknown | + + + | Phone | Unavailable | + + + Support + + +---------+ + | Name | Relationship | Address | Phone | + + +---------+ + | Sebastien Champion | ECON | Unknown | | + + +---------+ + Care Team Providers + +------+ + | Care Manager Retirement Name | Role | Phone | + +------+ + | Maria Vieira PA-C | PCP | | + +------+ + Encounter Details +--------+ + + + + | Date | Type | Department | Care Team | Description | +--------+ + + + + | 06/22/ | Procedure | [facility] | | | | 2019 | [facility] | | | | | | Endoscopy [address] | | | | | | [place] | | | | | | [address] | | | +--------+ + + + [...] [address] | | | | | | [place] [address] | | | | | | [phone] | | | | | | | | +--------+---------+ + + + | 08/15/ | Office | Cardiology | Sarai Arce | | | 2019 | Visit | | [address] | | | | | | [address] | | | | | | [place] [address] | | | | | | [phone] | | | | | | | | +--------+---------+ + + + | 08/19/ | Office | General Surgery | Michele Motta, | | | 2019 | Visit | | MD [address] | | | | | | [address] [place], | | | | | | [place] [address] | | | | | | [phone] | | | | | | | | +--------+---------+ + + + as of this encounter Visit Diagnoses Not on filein this encounter"
--- OUTSIDE RECORDS SUMMARY | ~2018-08-01 | XMS | Encounter Summary ---
Demographics + + + | Address | [address] | | | [place] [address] | + + + | Home Phone | | + + + | Preferred Language | Unknown | + + + | Marital Status | | + + + | Druze Affiliation | 1013 | + + + | Race | Unknown | + + + | Ethnic Group | Unknown | + + + Author + + + | Author | [employer] | + + + | Organization | [facility] | + + + | Address | Unknown | + + + | Phone | Unavailable | + + + Support + + +---------+ + | Name | Relationship | Address | Phone | + + +---------+ + | Sebastien Champion | ECON | Unknown | | + + +---------+ + Care Team Providers + +------+ + | Care Etl Tester Name | Role | Phone | + +------+ + | Maria Vieira PA-C | PCP | | + +------+ + Encounter Details +--------+ + + + + | Date | Type | Department | Care Team | Description | +--------+ + + + + | 05/23/ | Procedure | [facility] | | | | 2019 | [facility] | | | | | | Operating Room [address] | | | | | | [address] | | | | | | [place] [address] | | | | | | [phone] | | | +--------+ + + + [...] [address] | | | | | | [place] [address] | | | | | | [phone] | | | | | | | | +--------+---------+ + + + | 08/15/ | Office | Cardiology | Sarai Arce | | | 2019 | Visit | | [address] | | | | | | [address] | | | | | | [place] [address] | | | | | | [phone] | | | | | | | | +--------+---------+ + + + | 08/19/ | Office | General Surgery | Michele Motta, | | | 2019 | Visit | | MD [address] | | | | | | [address] [place], | | | | | | [place] [address] | | | | | | [phone] | | | | | | | | +--------+---------+ + + + as of this encounter Visit Diagnoses Not on filein this encounter"
--- OUTSIDE RECORDS SUMMARY | ~2018-08-01 | XMS | Encounter Summary ---
Demographics + + + | Address | [address] | | | [place] [address] | + + + | Home Phone | | + + + | Preferred Language | Unknown | + + + | Marital Status | | + + + | Uatsdin Affiliation | 1013 | + + + | Race | Unknown | + + + | Ethnic Group | Unknown | + + + Author + + + | Author | [employer] | + + + | Organization | [facility] | + + + | Address | Unknown | + + + | Phone | Unavailable | + + + Support + + +---------+ + | Name | Relationship | Address | Phone | + + +---------+ + | Sebastien Champion | ECON | Unknown | | + + +---------+ + Care Team Providers + +------+ + | Care Appliance Technician Name | Role | Phone | + [...] + + | 06/06/ | Office | [facility] | Michele Motta, | 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) | | | | [address] | [address] [place], | | | | | [place], [place] | [place] [address] | | | | | [address] | [phone] | | | | | [phone] | | | +--------+---------+ + + + [...] [address]SE[address] | | | | | | [place] [address] | | | | | | [phone] | | | | | | | | +--------+---------+ + + + | 08/15/ | Office | Cardiology | Sarai Arce | | | 2018 | Visit | | [address] | | | | | | [address] | | | | | | [place] [address] | | | | | | [phone] | | | | | | | | +--------+---------+ + + + | 08/19/ | Office | General Surgery | Michele Motta, | | | 2018 | Visit | | MD Donna DEE | | | | | | [address] [facility] | | | | | | [place] [address] | | | | | | [phone] | | | | | | | [...]
--- OUTSIDE RECORDS SUMMARY | ~2018-08-01 | XMS | Encounter Summary ---
Demographics + + + | Address | [address] | | | [place] [address] | + + + | Home Phone | | + + + | Preferred Language | Unknown | + + + | Marital Status | | + + + | Methodist Affiliation | 1013 | + + + | Race | Unknown | + + + | Ethnic Group | Unknown | + + + Author + + + | Author | [facility] | + + + | Organization | [facility] | + + + | Address | Unknown | + + + | Phone | Unavailable | + + + Support + + +---------+ + | Name | Relationship | Address | Phone | + + +---------+ + | Sebastien Champion | ECON | Unknown | | + + +---------+ + Care Team Providers + +------+ + | Care Door Closer Mechanic Name | Role | Phone | + +------+ + | Maria Vieira PA-C | PCP | | + +------+ + Encounter Details +--------+---------+ + + + | Date | Type | Department | Care Team | Description | +--------+---------+ + + + | 06/07/ | Office | [facility] | Marni Espinal, | Exertional shortness | | 2019 | Visit | Cardiothoracic | [address] | of breath (Primary | | | | Surgery [address] | [facility] | Dx); Other emphysema | | | | [address] | [place] [address] | ([facility]); Lung bullae | | | | [place], [place] | [phone] | ([facility]) | | | | [address] | | | | | | [phone] | | | +--------+---------+ + + + [...] [address] | | | | | | [place] [address] | | | | | | [phone] | | | | | | | | +--------+---------+ + + + | 08/15/ | Office | Cardiology | LeonardomonicaSarai ashton | | | 2018 | Visit | | [address] | | | | | | [address] | | | | | | [place] [address] | | | | | | [phone] | | | | | | | | +--------+---------+ + + + | 08/19/ | Office | General Surgery | Michele Motta, | | | 2018 | Visit | | MD Donna DEE | | | | | | [address] [facility], | | | | | | [place] [address] | | | | | | [phone] | | | | | | | [...]
--- OUTSIDE RECORDS SUMMARY | ~2018-08-01 | XMS | Encounter Summary ---
Demographics + + + | Address | [address] | | | [place] [address] | + + + | Home Phone | | + + + | Preferred Language | Unknown | + + + | Marital Status | | + + + | Jehovah'S Witness Affiliation | 1013 | + + + | Race | Unknown | + + + | Ethnic Group | Unknown | + + + Author + + + | Author | [employer] | + + + | Organization | [facility] | + + + | Address | Unknown | + + + | Phone | Unavailable | + + + Support + + +---------+ + | Name | Relationship | Address | Phone | + + +---------+ + | Sebastien Champion | ECON | Unknown | | + + +---------+ + Care Team Providers + +------+ + | Care Coin Box Inspector Name | Role | Phone | [...] + + + + | 06/22/ | Anesthesia | [facility] | [place] Motta | | | 2019 | [facility] | [address] | | | | | Endoscopy [address] | [address] | | | | | [place], [place] | [place] [address] | | | | | [address] | [phone] | | | | | | | | +--------+ + + + + Anesthesia Record + + + + + | Procedure Name | Responsible | Anesthesia Start | Anesthesia Stop Time | | | Anesthesiologist | Time | | + + + + + | ESOPHAGOGASTRODUODEN | Abigail Veras, | 06/22/18 1445 | 06/22/18 1506 | | OSCOPY (N/A Upper | RADIO REPAIRER | | | | GI) | | | | + + + + + +----+---+ + + | Da | T | Event | Comment | | te | i | | | | | m | | | | | e | | | +----+---+ + + | 03 | 1 | An Start | Pre-anesthetic vital signs reassessed. | | /0 | 4 | | | | 6/ | 4 | | | | 20 | 5 | | | | 19 | | | | +----+---+ + + | | 1 | Quick Note | Pt ID'd, ed H&P & plan discussed. [place] O2. VS assessed | | | 4 | | prior to sedation. Pt NSR and with 4L NC O2 unless otherwise | | | 4 | | stated. | | | 8 | | | +----+---+ + + | | 1 | an stop | | | | 5 | data | | | | 0 | | | | | 4 | | | +----+---+ + + | | 1 | An Stop | | | | 5 | | | | | 0 | | | | | 6 | | | +----+---+ + + +------+ | Meds | +------+ + + + | Name | Total | + + + | lidocaine 2% | 40 mg | + + + | propofol bolus | 65 mg | + + + | propofol infusion | 145.6 mg | + + + | sodium chloride 0.9 % infusion | 400 mL | + + + + + | Name | + + | Aux O2 (L/min) | + + | N2O | + + + + | No blood administrations on file. | + + +--------+ + + + | Type | Details | Placement | Removal | +--------+ + + + | Wound | 05/23/18; 1008; Incision; Chest; | 05/23/18 1008 by | | | | Left | Dennis Harris RN | | +--------+ + + + | Periph | Removal Date: 07/29/18; Removal | 05/23/18 0902 by | 07/29/18 1118 by | | eral | Time: 1118; Size (Gauge): 18 G; | | Bernarda Barrientos RN | | IV | Orientation: Right; Location: | | | | | Hand; Site Prep: Alcohol; | | | | | Insertion Attempts: 1 | | | +--------+ + + + | Periph | Placement Date: 05/23/18; | 05/23/18 0640 by | 07/22/18 0000 by | | eral | Placement Time: 0640; Removal | Deepa Simons RN | Bernarda Barrientos RN | | IV | Date: 07/22/18; Size (Gauge): 18 | | | | | G; Orientation: Left; Location: | | | | | Hand; Site Prep: | | | | | Chlorhexidine-Isopropyl Alcohol; | | | | | Insertion Attempts: 1 | | | +--------+ + + + | ETT | Placement Date: 05/23/18; | 05/23/18 08 by | 07/29/18 111 by | | | Placement Time: 840; Removal | Zelalem Crawford MD | Bernarda Barrientos RN | | | Date: 07/29/18; Removal Time: | | | | | 1118; Mask Airway: Easy; Blade | | | | | Type: Howe; Blade Size: 2; | | | | | Double Lumen Ett: 39 Fr, Left; | | | | | Technique: Direct Laryngoscope; | | | | | Grade: I; Insertion attempts: 1; | | | | | Confirmation: EtCO2, Fiber optic; | | | | | Intubation Details: Easy, | | | | | Atraumatic; Taped at (cm): 29; | | | | | Secured at: Gums | | | +--------+ + + + | Periph | Placement Date: 06/22/18; | 06/22/18 1225 by | 06/22/18 1545 by Maranda | | eral | Placement Time: 1225; Removal | Sirisha Curtis RN | Gisela Mccall RN | | IV | Date: 06/22/18; Removal Time: | | | | | 1545; Size (Gauge): 20 G; | | | | | Orientation: Left; Location: | | | | | Wrist; Site Prep: Alcohol; | | | | [...] [address]SE[address] | | | | | | [place] [address] | | | | | | [phone] | | | | | | | | +--------+---------+ + + + | 08/15/ | Office | Cardiology | ClaudeSarai | | | 2018 | Visit | | [address] | | | | | | [address] | | | | | | [place] [address] | | | | | | [phone] | | | | | | | | +--------+---------+ + + + | 08/19/ | Office | General Surgery | Michele Motta, | | | 2018 | Visit | | MD Donna DEE | | | | | | [address] [place], | | | | | | [place] [address] | | | | | | [phone] | | | | | | | | +--------+---------+ + + + as of this encounter Visit Diagnoses Not on filein this encounter Administered Medications + +--------+ +-------+------+------+ | Medication Order | MAR | Action | Dose | Rate | Site | | | Action | Date | | | | + +--------+ +-------+------+------+ | lidocaine 2 % (MDV) 2 % | Given | 06/22/2018 | 40 mg | | | | injection Intravenous, PRN, | | 14:50 | | | | | Starting 06/22/18 at 1450, | | PST | | | | | Anesthesia Intra-op | | | | | | + +--------+ +-------+------+------+ +---+---+ | | | +---+---+ + +-------+ +-------+---+---+ | propofol (DIPRIVAN) injection | Given | 06/22/2018 | 50 mg | | | | Intravenous, PRN, Starting Wed | | 14:50 | | | | | 06/22/18 at 1450, Anesthesia | | PST | | | | | Intra-op | | | | | | + +-------+ +-------+---+---+ +-------+ +-------+---+---+ | Given | 06/22/2018 | 15 mg | | | | | 14:51 | | | | | | PST | | | | +-------+ +-------+---+---+ +---+---+ | | | +---+---+ + +---------+ + +-------+---+ | propofol infusion Intravenous, | New Bag | 06/22/2018 | 140 | 87.4 | | | Continuous PRN, Starting Wed | | 14:50 | mcg/kg/m | mL/hr | | | 06/22/18 at 1450, Anesthesia | | PST | in | | | | Intra-op | | | | | | + +---------+ + +-------+---+ +---+---+ | | | +---+---+ in this encounter"
--- OUTSIDE RECORDS SUMMARY | ~2018-08-01 | XMS | Clinical Summary ---
Demographics + + + | Address | [address] | | | [place] [address] | + + + | Home Phone | | + + + | Preferred Language | Unknown | + + + | Marital Status | | + + + | Scientologist Affiliation | 1013 | + + + | Race | Unknown | + + + | Ethnic Group | Unknown | + + + Author + + + | Author | [employer] | + + + | Organization | [facility] | + + + | Address | Unknown | + + + | Phone | Unavailable | + + + Support + + +---------+ + | Name | Relationship | Address | Phone | + + +---------+ + | Sebastien Champion | ECON | Unknown | | + + +---------+ + Care Team Providers + +------+ + | Care Government Services Professional Name | Role | Phone | + [...] + + + + + | Tiotropium [place] | Shortness of Breath | High | [...] Overview: Added automatically from request for surgery [id number] | + + + + + | [...] + | 07/29/ | Hospital | | Licha Motta, | Gastroesophageal | [...] | | A full | | | Jnaene wrap | | | was | | [...] | | | [Tiotropium | | | [place] | | | Monohydrate | | | [...] | | n [place] | | | [address] | | | [phone] | | | Licha G | | | Motta, | | | MD[address] | | [address] | | | [address] | | | [place] | | | [phone] | | | [phone] | | | [...] | | | [place] | | | [phone] | | | [phone] | | | weekfor | | | routine | | | post | | | operative | | | visit.Maria | | | Treva | | | Vieira, | | | [id number] | | | [address] | | | [address] | | | n [place] | | | [address] | | | [phone] | | | [...] | | | [Tiotropium | | | [place] | | | Monohydrate | | | [...] | | | [place], | | | [id number] | | | [address] | | | [address] | | | nd [place] | | | [phone] | | | [phone] | | | [...] | | n [place] | | | [address] | | | [phone] | | | [...] | | Pharmacy - | | | [place], | | | [place] - | | | [place], | | | [place] - [address] | | | [address] | | | [address] | | | [address], | | | [place] | | | [address] | | | Phone: | | | [phone] | | | 4 | | | [...] | | | | | | emphysema ([facility]); | | | | | | Exertional shortness | | | | | | of breath; Lung | | | | | | bullae (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); | | | | | | Paraesophageal [...] | 08/05/ | Office | | Tristian Fooet MD | | | 2018 | Visit | | [address] | | | | | | [place] [address] | | | | | | [phone] | | | | | | | | +--------+---------+ + + + | 08/15/ | Office | | Sarai Arce | | | 2018 | Visit | | [address] | | | | | | [address] | | | | | | [place] [address] | | | | | | [phone] | | | | | | | | +--------+---------+ + + + | 08/19/ | Office | | Licha Motta, | | | 2018 | Visit | | MD Donna DEE | | | | | | [address] | | | | | | [place] [address] | | | | | | [phone] | | | | | | | [...] 07/29/2018 | Paraesophageal | | | LAPAROSCOPIC JAENNE | | 11:50 AM | hernia | [...] | [facility] | | | performed at [facility], [address] | | LABORATORY | | | [address], | | | | | [place] [address] | | | + + + + + + + | Specimen | + + | Blood | + + + + + + + | Performing | Address | City/State/Zipcode | Phone Number | | Organization | | | | + + + + + | [facility] | [address] [facility] | [place] [address] | [phone] | | LABORATORY | [address] | | [...] >60Comment: GFR <60: | >60 mL/min/1.73m2 | [facility] | | | CHRONIC KIDNEY DISEASE, | [...] | performed at [facility], [facility] [address] | | | | | [facility], | | | | | [place] [address] | | | + + + + + + + | Specimen | + + | Blood | + + + + + + + | Performing | Address | City/State/Zipcode | Phone Number | | Organization | | | | + + + + + | [facility] | [address] [place] [address] | [place] [address] | [phone] | | LABORATORY | Blvd. | | [...] | + + + + + | [facility] | [address] | [place] [address] | | + + + + + [...] | [address] | [place] [address] | | + + + + + POC arterial CG4+ (07/29/2018 7:16 PM) + + + + + | Component | Value | Ref Range | Performed At | + + + + + | pH, Art | 7.259 (L) | 7.350 - 7.450 | [facility] | + + + + + [...] (H) | 0.0 - 2.0 mmol/L | [facility] | + + + + + | POC S02 | 99 (H)Comment: Testing | 95 - 98 % | [facility] | | | performed at [facility] | | | | | [address];[place] | | | | | [address] | | | + + + + + + + + + + | Performing | Address | City/State/Zipcode | Phone Number | | Organization | | | | + + + + + | [facility] | [address] | [place] [address] | | + + + + + POC arterial CG8+ (07/29/2018 7:10 PM)Only the most recent of 3 results within the time jose antonio chamberlain is included. + + + + + | Component | Value | Ref Range | Performed At | + + + + + | pH, Art | 7.259 (L) | 7.350 - 7.450 | [facility] | + + + + + | POC PCO2 | 48 (H) | 35 - 45 mmHg | [facility] | + + + + + | POC p02 | 161 (H) | 80 - 105 mmHg | [facility] | + + + + + [...] Testing | 13.7 - 16.7 g/dL | [facility] | | | performed at [facility];[address] | | | [address];[place] | | | | | [address] | | | + + + + + + + + + + | Performing | Address | City/State/Zipcode | Phone Number | | Organization | | | | + + + + + | [facility] | [address] | [place] [address] | | + + + + + Protime-INR (07/29/2018 11:16 AM)Only the most recent of 5 results within the time period i s included. + + + + + | Component | Value | Ref Range | Performed At | + + + + + | INR | 1.2Comment: REFERENCE | | [facility] | | | RANGE:0.9 - [...] | | | | performed at [facility];[address] | | | | | [address];[place], [place] | | | | | [address] | | | + + + + + + + | Specimen | + + | Blood | + + + + + + + | Performing | Address | City/State/Zipcode | Phone Number | | Organization | | | | + + + + + | [facility] | [address] | [place] [address] | | + + + + + Type and screen (07/29/2018 10:44 AM)Only the most recent of 3 results within the time raúl od is included. + + + + + | Component | Value | Ref Range | Performed At | + + + + + | ABO/RH(D) | O POSITIVE | | [facility] | + + + + + | ANTIBODY SCREEN | NEGATIVE | | [facility] | + + + + + | ARM BAND NUMBER | [id number] | | [facility] | | | performed at [facility];[address] | | | | | [address];[place] | | | | | [address] | | | + + + + + + + | Specimen | + + | Blood | + + + + + + + | Performing | Address | City/State/Zipcode | Phone Number | | Organization | | | | + + + + + | [facility] | [address] | [place] [address] | | + + + + + MRSA by PCR (07/21/2018 5:18 PM)Only the most recent of 2 results within the time period i s included. + + + + + | Component | Value | Ref Range | Performed At | + + + + + | SOURCE | NARES(NOSE) | | [facility] | + + + + + | MRSA PCR | NEGATIVEComment: Testing | NEGATIVE | [facility] | | | performed at [facility];[address] | | | | | [address];[place], [place] | | | | | [address] | | | + + + + + + + | Specimen | + + | Nasopharyngeal - | | Nares(Nose) | + + + + + + + | Performing | Address | City/State/Zipcode | Phone Number | | Organization | | | | + + + + + | [facility] | [address] | [place] [address] | | + + + + + [...] + + + + | Calculated R [place] | 56 | degrees | [facility] | + + + + + | Calculated T [place] | 1 | degrees | [facility] | + + + + + | Diagnosis | Atrial fibrillationRight | | [facility] | | | bundle branch | [...] | + + + + + | [facility] | [address] | [place] [address] | | + + + + + [...] | [address] | [place] [address] | | + + + + + Magnesium (05/24/2018 3:59 AM)Only the most recent of 2 results within the time period is included. + + + + + | Component | Value | Ref Range | Performed At | + + + + + | MAGNESIUM | 2.2Comment: Testing | 1.7 - 2.4 mg/dL | [facility] | | | performed at [facility], [address] | | LABORATORY | | | [address], | | | | | [place] [address] | | | + + + + + + + | Specimen | + + | Blood | + + + + + + + | Performing | Address | City/State/Zipcode | Phone Number | | Organization | | | | + + + + + | [facility] | [address] | [place] [address] | [phone] | | LABORATORY | [address]vd[address] | | | + + + + + Pathology histology - tissue (05/23/2018 11:00 AM) + + | Specimen | + + | Tissue | + + + + + | Narrative | Performed At | + + + | SPECIMEN(S): A LEFT LUNG BULLAE SPECIMEN SOURCE: A. LEFT LUNG | [facility] | | BULLAE CLINICAL HISTORY: Left [...] | lung parenchyma is pink and spongy. Environmental Educator sections are | | | submitted in [...] component was | | | performed by [facility], [address] [place] [address] | | | (Corporation Officer: Maranda Brown MD; IA# [id number]). | | | Professional interpretation was performed by [facility] | | | Diagnostics, [facility], [address] | | | [place] [address]. Diagnostician: Danny Delaney MD | | | [...] Testing | 23 - 32 seconds | [facility] | | | performed at [facility];[address] | | | | | [address];[place], [place] | | | | | [address] | | | + + + + + + + | Specimen | + + | Blood | + + + + + + + | Performing | Address | City/State/Zipcode | Phone Number | | Organization | | | | + + + + + | [facility] | [address] | [place] [address] | | + + + + + [...] +------+-------+ + | MEDICARE | MEDICA | [id number] | | | [address] | | | RE | | | | [place] [address] | | | [place] | | | [...] DEX | susan/Nelson | | 1955 | [phone] | [place] | | | jeanne | | | [phone] | [phone] | + +--------+ +--------+ + +
--- OUTSIDE RECORDS SUMMARY | ~2018-08-01 | XMS | Encounter Summary ---
Demographics + + + | Address | [address] | | | [place] [address] | + + + | Home Phone | | + + + | Preferred Language | Unknown | + + + | Marital Status | | + + + | Restorationism Affiliation | 1013 | + + + | Race | Unknown | + + + | Ethnic Group | Unknown | + + + Author + + + | Author | [employer] | + + + | Organization | [facility] | + + + | Address | Unknown | + + + | Phone | Unavailable | + + + Support + + +---------+ + | Name | Relationship | Address | Phone | + + +---------+ + | Sebastien Champion | ECON | Unknown | | + + +---------+ + Care Team Providers + +------+ + | Care Oenologist Name | Role | Phone | + [...] | | | | | | | ([facility]) | | | | | | | Procedures | | | | | | | THORACOSCOPY | | | | | | | - BIOPSY | | | +--------+--------+ + + + + Encounter Details +--------+ + + + + | Date | Type | Department | Care Team | Description | +--------+ + + + + | 05/23/ | Anesthesia | [facility] | Zelalem Crawford MD | | | 2019 | [facility] | [facility] | [address] | | | | | Operating Room [address] | [place] [address] | | | | | [facility] | [phone] | | | | | [place] [address] | | | | | | [phone] | | | +--------+ + + + + Anesthesia Record + + + + + | Procedure Name | Responsible | Anesthesia Start | Anesthesia Stop Time | | | Anesthesiologist | Time | | + + + + + | THORACOSCOPY - | Zelalem Crawford MD | 05/23/18 0831 | 05/23/18 1029 | | BIOPSY (Left Chest) | | | | + + + + + +----+---+ + + | Da | T | Event | Comment | | te | i | | | | | m | | | | | e | | | +----+---+ + + | 02 | 0 | An Start | Pre-anesthetic vital signs reassessed. | | /0 | 8 | | | | 4/ | 3 | | | | 20 | 1 | | | | 19 | | | | +----+---+ + + | | 0 | Quick Note | ABIOTIC given at time out: cefaz 2 BB status:Antibiotic given | | | 8 | | at time out: ld 24 NPO status confirmed, yesterday. Evaluated | | | 3 | | for DEIDRE-, GERD+, Glaucoma-, PONV-, alcohol and tabacco- EKG | | | 1 | | reviewed, NSR. History or anesthetic and airway issues | | | | | discussed, none. Exercise tolerance evaluated. Right radial | | | | | emily placed under local and clean technique x 1. To sleep. Pre | | | | | O2, smooth IV nduction. DL x 1 with Howe 2, and DV cords. | | | | | Easy 39 L David to 29 CM, placed with scope in LM bronchus. | | | | | Confirmed RUL bronchus. | +----+---+ + + | | 0 | An | | | | 8 | Induction | | | | 4 | | | | | 1 | | | +----+---+ + + | | 0 | An | | | | 8 | Intubation | | | | 4 | | | | | 1 | | | +----+---+ + + | | 1 | An Stop | | | | 0 | | | | | 2 | | | | | 9 | | | +----+---+ + + +------+ | Meds | +------+ + +---------+ | Name | Total | + +---------+ | ceFAZolin (ANCEF) 1 g | 2 g | + +---------+ | midazolam 1 mg/mL | 2 mg | + +---------+ | fentanyl 50 mcg/mL | 100 mcg | + +---------+ | lidocaine 2% | 100 mg | + +---------+ | propofol bolus | 180 mg | + +---------+ | ROCuronium 10 mg/mL | 65 mg | + +---------+ | dexamethasone 4 mg/mL | 8 mg | + +---------+ | ondansetron 2 mg/mL | 4 mg | + +---------+ | ketorolac 30 mg/mL | 30 mg | + +---------+ | morphine (PF) 1 mg/1mL | 5 mg | + +---------+ | glycopyrrolate 0.2 mg/mL | 0.8 mg | + +---------+ | neostigmine | 4 mg | + +---------+ | plasmalyte-A | 500 mL | + +---------+ | plasmalyte-A | 500 mL | + +---------+ + + | Name | + + | N2O | + + | O2 | + + | Air | + + | Desflurane-EX | + + | N2O | + + + + | No blood administrations on file. | + + +--------+ + + + | Type | Details | Placement | Removal | +--------+ + + + | Wound | 05/23/18; 1008; Incision; Chest; | 05/23/188 by | | | | Left | Dennis Harris RN | | +--------+ + + + | Periph | Removal Date: 07/29/18; Removal | 05/23/18901 by | 07/29/188 by | | martha | Time: 1118; Size (Gauge): 18 G; | | Bernarda Barrientos RN | | IV | Orientation: Right; Location: | | | | | Hand; Site Prep: Alcohol; | | | | | Insertion Attempts: 1 | | | +--------+ + + + | Periph | Placement Date: 05/23/18; | 05/23/18 06 by | 07/22/18 0000 by | | eral | Placement Time: 639; Removal | Deepa Simons RN | Bernarda [...] ETT | Placement Date: 05/23/18; | 05/23/18 0841 by | 07/29/18 1118 by | | | Placement Time: 0841; Removal | Zelalem Crawford MD | Bernarda [...] | | +--------+ + + + | Chest | 05/23/18; 0957; 1; Left; 28 Fr.; | 05/23/18 0957 by | 05/24/18 1000 by | | Tube | Per order | Dennis Harris RN | Shara Bauer RN | +--------+ + + + in this [...] [address] | | | | | | [place] [address] | | | | | | [phone] | | | | | | | | +--------+---------+ + + + | 08/15/ | Office | Cardiology | Sarai Arce | | | 2018 | Visit | | [address] | | | | | | [address] [address] | | | | | | [place] [address] | | | | | | [phone] | | | | | | | | +--------+---------+ + + + | 08/19/ | Office | General Surgery | Michele Motta, | | | 2018 | Visit | | MD Donna DEE | | | | | | [address] [facility] | | | | | | [place] [address] | | | | | | [phone] | | | | | | | | +--------+---------+ + + + as of this encounter Visit Diagnoses Not on filein this encounter Administered Medications + +--------+ +------+------+------+ | Medication Order | MAR | Action | Dose | Rate | Site | | | Action | Date | | | | + +--------+ +------+------+------+ | ceFAZolin (ANCEF) injection | Given | 05/23/2018 | 2 g | | | | Intravenous, PRN, Starting Mon | | 08:59 | | | | | 05/23/18 at 0859, Anesthesia | | PST | | | | | Intra-op | | | | | | + +--------+ +------+------+------+ +---+---+ | | | +---+---+ + +-------+ +------+---+---+ | dexamethasone (DECADRON) 4 | Given | 05/23/2018 | 8 mg | | | | MG/ML injection PRN, Starting | | 08:41 | | | | | 05/23/18 at 0841, Anesthesia | | PST | | | | | Intra-op | | | | | | + +-------+ +------+---+---+ +---+---+ | | | +---+---+ + +---------+ +---+---+---+ | electrolyte-A (PLASMALYTE-A) | New Bag | 05/23/2018 | | | | | solution Intravenous, Continuous | | 08:31 | | | | | PRN, Starting 05/23/18 at | | PST | | | | | 0831, Anesthesia Intra-op | | | | | | + +---------+ +---+---+---+ +---------+ +---+ +---+ | New Bag | 05/23/2018 | | 30 mL/hr | | | | 11:00 | | | | | | PST | | | | +---------+ +---+ +---+ +---+---+ | | | +---+---+ + +---------+ +---+---+---+ | electrolyte-A (PLASMALYTE-A) | New Bag | 05/23/2018 | | | | | solution Continuous PRN, | | 08:31 | | | | | Starting 05/23/18 at 0831, | | PST | | | | | Anesthesia Intra-op | | | | | | + +---------+ +---+---+---+ +---+---+ | | | +---+---+ + +-------+ +---------+---+---+ | fentaNYL (SUBLIMAZE) injection | Given | 05/23/2018 | 100 mcg | | | | Intravenous, PRN, Starting Mon | | 08:41 | | | | | 05/23/18 at 0841, Anesthesia | | PST | | | | | Intra-op | | | | | | + +-------+ +---------+---+---+ +---+---+ | | | +---+---+ + +-------+ +--------+---+---+ | glycopyrrolate (ROBINUL) | Given | 05/23/2018 | 0.8 mg | | | | injection PRN, Starting Mon | | 10:03 | | | | | 05/23/18 at 1003, Anesthesia | | PST | | | | | Intra-op | | | | | | + +-------+ +--------+---+---+ +---+---+ | | | +---+---+ + +-------+ +-------+---+---+ | ketorolac (TORADOL) injection | Given | 05/23/2018 | 30 mg | | | | PRN, Starting Wed05/23/18 at 0841, | | 08:41 | | | | | Anesthesia Intra-op | | PST | | | | + +-------+ +-------+---+---+ +---+---+ | | | +---+---+ + +-------+ +--------+---+---+ | lidocaine 2 % (MDV) 2 % | Given | 05/23/2018 | 100 mg | | | | injection Intravenous, PRN, | | 08:41 | | | | | Starting Wed05/23/18 at 0841, | | PST | | | | | Anesthesia Intra-op | | | | | | + +-------+ +--------+---+---+ +---+---+ | | | +---+---+ + +-------+ +------+---+---+ | midazolam (VERSED) injection | Given | 05/23/2018 | 2 mg | | | | PRN, Starting Wed05/23/18 at 0831, | | 08:31 | | | | | Anesthesia Intra-op | | PST | | | | + +-------+ +------+---+---+ +---+---+ | | | +---+---+ + +-------+ +------+---+---+ | morphine (PF) injection PRN, | Given | 05/23/2018 | 2 mg | | | | Starting Wed05/23/18 at 1007, | | 10:07 | | | | | Anesthesia Intra-op | | PST | | | | + +-------+ +------+---+---+ +-------+ +------+---+---+ | Given | 05/23/2018 | 1 mg | | | | | 10:20 | | | | | | PST | | | | +-------+ +------+---+---+ | Given | 05/23/2018 | 2 mg | | | | | 10:28 | | | | | | PST | | | | +-------+ +------+---+---+ +---+---+ | | | +---+---+ + +-------+ +------+---+---+ | neostigmine (PROSTIGMINE) | Given | 05/23/2018 | 4 mg | | | | injection PRN, Starting Mon | | 10:03 | | | | | 05/23/18 at 1003, Anesthesia | | PST | | | | | Intra-op | | | | | | + +-------+ +------+---+---+ +---+---+ | | | +---+---+ + +-------+ +------+---+---+ | ondansetron (ZOFRAN) injection | Given | 05/23/2018 | 4 mg | | | | PRN, Nausea, Vomiting, Starting | | 08:41 | | | | | 05/23/18 at 0841, Anesthesia | | PST | | | | | Intra-op | | | | | | + +-------+ +------+---+---+ +---+---+ | | | +---+---+ + +-------+ +--------+---+---+ | propofol (DIPRIVAN) injection | Given | 05/23/2018 | 180 mg | | | | Intravenous, PRN, Starting Mon | | 08:41 | | | | | 05/23/18 at 0841, Anesthesia | | PST | | | | | Intra-op | | | | | | + +-------+ +--------+---+---+ +---+---+ | | | +---+---+ + +-------+ +-------+---+---+ | rocuronium (ZEMURON) injection | Given | 05/23/2018 | 50 mg | | | | PRN, Starting 05/23/18 at | | 08:41 | | | | | 0841, Anesthesia Intra-op | | PST | | | | + +-------+ +-------+---+---+ +-------+ +-------+---+---+ | Given | 05/23/2018 | 10 mg | | | | | 09:08 | | | | | | PST | | | | +-------+ +-------+---+---+ | Given | 05/23/2018 | 5 mg | | | | | 09:33 | | | | | | PST | | | | +-------+ +-------+---+---+ +---+---+ | | | +---+---+ in this encounter"
--- OUTSIDE RECORDS SUMMARY | ~2018-08-01 | XMS | Encounter Summary ---
Demographics + + + | Address | [address] | | | [place] [address] | + + + | Home Phone | | + + + | Preferred Language | Unknown | + + + | Marital Status | | + + + | Tenriism Affiliation | 1013 | + + + | Race | Unknown | + + + | Ethnic Group | Unknown | + + + Author + + + | Author | [employer] | + + + | Organization | [facility] | + + + | Address | Unknown | + + + | Phone | Unavailable | + + + Support + + +---------+ + | Name | Relationship | Address | Phone | + + +---------+ + | Sebastien Champion | ECON | Unknown | | + + +---------+ + Care Team Providers + +------+ + | Care Insulating Machine Operator Name | Role | Phone [...] | | | | | | | ([facility]) | | | | | [...] + + | 05/23/ | Anesthesia | [facility] | Zelalem Crawford MD | | | 2019 | [facility] | [facility] | [address] | | | | | Operating [address] | [place] [address] | | | | | [facility] | [phone] | | | | | [place] [address] | | | | | | [phone] | | | +--------+ + + + [...] [address] | | | | | | [place] [address] | | | | | | [phone] | | | | | | | | +--------+---------+ + + + | 08/15/ | Office | Cardiology | Sarai Arce | | | 2018 | Visit | | [address] | | | | | | [address] | | | | | | [place] [address] | | | | | | [phone] | | | | | | | | +--------+---------+ + + + | 08/19/ | Office | General Surgery | Michele Motta, | | | 2018 | Visit | | MD Donna DEE | | | | | | [address] [facility] | | | | | | [place] [address] | | | | | | [phone] | | | | | | | [...]
--- OUTSIDE RECORDS SUMMARY | ~2018-08-01 | XMS | Encounter Summary ---
Demographics + + + | Address | [address] | | | [place] [address] | + + + | Home Phone | | + + + | Preferred Language | Unknown | + + + | Marital Status | | + + + | Evangelical Affiliation | 1013 | + + + | Race | Unknown | + + + | Ethnic Group | Unknown | + + + Author + + + | Author | [employer] [facility] | + + + | Organization | [email or web address] | + + + | Address | Unknown | + + + | Phone | Unavailable | + + + Support + + +---------+ + | Name | Relationship | Address | Phone | + + +---------+ + | Sebastien Champion | ECON | Unknown | | + + +---------+ + Care Team Providers + +------+ + | Care Automotive Engineering Teacher Name | Role | Phone | + +------+ + | Maria Vieira PA-C | PCP | | + +------+ + Encounter Details +--------+ + + + + | Date | Type | Department | Care Team | Description | +--------+ + + + + | 07/29/ | Procedure | [facility] | | | | 2019 | [facility] | | | | | | Operating [address] | | | | | | [address] | | | | | | [place] [address] | | | | | | [phone] | | | +--------+ + + + [...] [address] | | | | | | [place] [address] | | | | | | [phone] | | | | | | | | +--------+---------+ + + + | 08/15/ | Office | Cardiology | Sarai Arce | | | 2019 | Visit | | [address] | | | | | | [address] | | | | | | [place] [address] | | | | | | [phone] | | | | | | | | +--------+---------+ + + + | 08/19/ | Office | General Surgery | Michele Motta, | | | 2019 | Visit | | MD Donna [address] | | | | | | [address], | | | | | | [place] [address] | | | | | | [phone] | | | | | | | | +--------+---------+ + + + as of this encounter Visit Diagnoses Not on filein this encounter"
--- OUTSIDE RECORDS SUMMARY | ~2018-08-01 | XMS | Encounter Summary ---
Demographics + + + | Address | [address] | | | [place] [address] | + + + | Home Phone | | + + + | Preferred Language | Unknown | + + + | Marital Status | | + + + | Uatsdin Affiliation | 1013 | + + + | Race | Unknown | + + + | Ethnic Group | Unknown | + + + Author + + + | Author | [employer] | + + + | Organization | [facility] [employer] [facility] | + + + | Address | Unknown | + + + | Phone | Unavailable | + + + Support + + +---------+ + | Name | Relationship | Address | Phone | + + +---------+ + | Sebastien Champion | ECON | Unknown | | + + +---------+ + Care Team Providers + +------+ + | Care Barrel Inspector Name | Role | Phone | [...] | | | | | | | ([facility]) | | | | | | | Procedures | | | | | | | THORACOSCOPY | | | | | | | - BIOPSY | | | +--------+--------+ + + + + Encounter Details +--------+---------+ + + + | Date | Type | Department | Care Team | Description | +--------+---------+ + + + | 05/23/ | Surgery | [facility] | Samson Limon MD | THORACOSCOPY - | | 2018 | | [facility] | [address] | BIOPSY | | | | Operating Room [address] | [place] [address] | | | | | [address] | [phone] | | | | | [place] [address] | | | | | | [phone] | | | +--------+---------+ + + + [...] ARTHROSCOPY Allergies Allergen Reactions Spiriva Handihaler [Tiotropium [place] Monohydrate] Shortness of Breath Prescriptions Prior to [...] Date: 11/21/18 Follow up: Samson Limon MD [address] [place] [address] Schedule an appointment as soon as possible for a visit on 06/07/2018 Post-Op Maria Vieira PA-C [address] [place] [address] Schedule an appointment [...] [facility] [place] [address] [address] acetaminophen 500 MG tablet gabapentin 300 MG [...] information carefully each time. Talk to your tissue packer regarding the use of this medicine in children. Special care may be needed. What side effects may I notice from receiving this medicine? Side effects that you should report to your doctor or health palliative care specialist as soon as p ossible: allergic reactions like skin rash, itching or hives, swelling of the face, lips, or tong ue worsening of mood, thoughts or actions of suicide or dying Side effects that usually do not require medical attention (report to your doctor or health palliative care specialist if they continue or are bothersome): [...] this medicine? Visit your doctor or health palliative care specialist for regular checks on your progress. You may want to keep a record at home of how you feel your condition is responding to treatment. You may want to share this information with your doctor or health palliative care specialist at each vis it. You should contact your doctor or health palliative care specialist if your seizures get worse or if you have any new types of seizures. Do not stop taking this medicine or any of your seiz ure medicines unless instructed by your doctor or health palliative care specialist. Stopping your me dicine suddenly can [...] dying should be reported to your health palliative care specialist right away. Women who become while using this medicine may enroll in the [place] Antiep ileptic Drug Registry by calling . This registry collects informatio n about the safety of antiepileptic drug use during . NOTE:This sheet is a summary. It may not cover all possible information. If you have questi ons about this medicine, talk to your doctor, pharmacist, or health care provider. Copyright 2018 [employer] Methocarbamol tablets Brand Name: Robaxin What is [...] more often than directed. Talk to your tissue packer regarding the use of this medicine in children. Special care may be needed. What side effects may I notice from receiving this medicine? Side effects that you should report to your doctor or health palliative care specialist as soon as p ossible: allergic reactions like skin rash, itching or hives, swelling of the face, lips, or tong ue breathing problems confusion seizures unusually weak or tired Side effects that usually do not require medical attention (report to your doctor or health palliative care specialist if they continue or are bothersome): [...] this medicine? Tell your doctor or health palliative care specialist if your symptoms do not start [...] t o schedule a time Please call [phone] with any questions or if you need to reschedul e Please go to [facility] and get a 2-view Chest X-Ray done 30min before your appoint ment. An order has been placed for you Follow up with your embroidery machine operator, , in 2-4 weeks. Follow up with your primary care physician in 2-4 weeks. General Instructions The [facility] Cardiothoracic Surgery office will contact you within 72 hours of your hospital discharge. If you do not receive a phone call or have any concerns before then, please call our office Mon-Fri 8:00am-5:00pm at [phone]. Please make sure we have the best [...] (MOM) or Miralax Daily Monitoring Notify the [facility] Cardiothoracic Surgery office of: Any weight gain [...] at your follo w up visit with [facility] Cardiothoracic Surgery - no later than 2 [...] to sexual relati ons, driving, and work. 5726-1576 [employer]. [address] [place] [address]. All righ ts reserved. This information is [...] may be different fr om the original. [facility] Service: Cardiothoracic Surgery Progress Note ROOM: 9103/[facility]-1 Hospital Day: LOS: 1 day Post-Op Day: [...] hours. No results for input(s): PHART, PO2ART, IHC4EKU, D7VQKFTT, BEART in the last 168 hours. Recent [...] [address] | | | | | | [place] [address] | | | | | | [phone] | | | | | | | | +--------+---------+ + + + | 08/15/ | Office | Cardiology | Sarai Arce | | | 2018 | Visit | | [address] | | | | | | [address] | | | | | | [place] [address] | | | | | | [phone] | | | | | | | | +--------+---------+ + + + | 08/19/ | Office | General Surgery | Michele Motta, | | | 2018 | Visit | | MD [address] | | | | | | [address] [place], | | | | | | [place] [address] | | | | | | [phone] | | | | | | | [...] | + + + + + | [facility] | [address] | [place] [address] | | + + + + + [...] | + + + + + | [facility] | [address] | [place] [address] | | + + + + + [...] | + + + + + | [facility] | [address] | [place] [address] | | + + + + + Magnesium (05/24/2018 3:59 AM) + + + + + | Component | Value | Ref Range | Performed At | + + + + + | MAGNESIUM | 2.2Comment: Testing | 1.7 - 2.4 mg/dL | [facility] | | | performed at [facility], [address] | | LABORATORY | | | [address], | | | | | [place] [address] | | | + + + + + + + | Specimen | + + | Blood | + + + + + + + | Performing | Address | City/State/Zipcode | Phone Number | | Organization | | | | + + + + + | [facility] | [address] | [place] [address] | [phone] | | LABORATORY | Blvd[address] | | [...] | [facility] | | | performed at [facility], [address] | | LABORATORY | | | [address], | | | | | [place] [address] | | | + + + + + + + | Specimen | + + | Blood | + + + + + + + | Performing | Address | City/State/Zipcode | Phone Number | | Organization | | | | + + + + + | [facility] | [address] | [place] [address] | [phone] | | LABORATORY | Blvd. | | [...] 1.1 | 0.70 - 1.30 mg/dL | [facility] | | | | | LABORATORY | + + + + + | BUN/CREAT | 17 | | [facility] | | | | | LABORATORY | + + + + + | CALCIUM | 9.1 | 8.5 - 10.5 mg/dL | [facility] | | | | | LABORATORY | + + + + + | EGFR | >60Comment: GFR <60: | >60 mL/min/1.73m2 | [facility] | | | CHRONIC KIDNEY DISEASE, [...] | | | | | performed at [facility], [address] | | | | | [facility], | | | | | [place] [address] | | | + + + + + + + | Specimen | + + | Blood | + + + + + + + | Performing | Address | City/State/Zipcode | Phone Number | | Organization | | | | + + + + + | [facility] | [address] | [place] [address] | [phone] | | LABORATORY | [address] | | | + + + + + Magnesium (05/23/2018 12:13 PM) + + + + + | Component | Value | Ref Range | Performed At | + + + + + | MAGNESIUM | 2.1Comment: Testing | 1.7 - 2.4 mg/dL | [facility] | | | performed at [facility] | | | | | [address];[place] | | | | | [address] | | | + + + + + + + | Specimen | + + | Blood | + + + + + + + | Performing | Address | City/State/Zipcode | Phone Number | | Organization | | | | + + + + + | [facility] | [address] | [place] [address] | | + + + + + Basic metabolic panel (05/23/2018 12:13 PM) + + + + + | Component | Value | Ref Range | Performed At | + + + + + | SODIUM | 145 | 135 - 145 mmol/L | [facility] | + + + + + | POTASSIUM | 4.9Comment: SLT | 3.5 - 4.9 mmol/L | [facility] | | | HEMOLYSIS | | [...] 1.07 | 0.70 - 1.30 mg/dL | [facility] | + + + + + | BUN/CREAT | 12 | | [facility] | + + + + + | CALCIUM | 8.4 (L) | 8.5 - 10.5 mg/dL | [facility] | + + + + + | EGFR | >60Comment: GFR <60: | >60 mL/min/1.73m2 | [facility] | | | CHRONIC KIDNEY DISEASE, [...] the | | | | | MDRD MAMS traceable | | | | | equation.Testing | | | | | performed at [facility] | | | | | [facility];[place], [place] | | | | | [address] | | | + + + + + + + | Specimen | + + | Blood | + + + + + + + | Performing | Address | City/State/Zipcode | Phone Number | | Organization | | | | + + + + + | [facility] | [address] | [facility] [address] | | + + + + + [...] 32.4 | 27.0 - 34.0 pg | [facility] | + + + + + | MCHC | 34.3 | 32.0 - 35.5 g/dL | [facility] | + + + + + | RDW SD | 47.3 | 37 - 53 fl | [facility] | + + + + + | PLT | 169 | 150 - 400 K/uL | [facility] | + + + + + [...] (L) | 1.00 - 3.90 K/uL | [facility] | + + + + + | MONOCYTES ABS | 0.41 | 0.00 - 0.80 K/uL | [facility] | + + + + + | EOSINOPHILS ABS | 0.02 | 0.00 - 0.50 K/uL | [facility] | + + + + + | BASOPHILS ABS | 0.03 | 0.00 - 0.10 K/uL | [facility] | + + + + + | MORPHOLOGY | RBC AND PLT MORPHOLOGY | | [facility] | | | APPEAR NORMAL | | | + + + + + | Diff Comment | SLIDE SCANNED, AGREES | | [facility] | | | WITH AUTOMATED | | | | | RESULTS.Comment: Testing | | | | | performed at [facility] | | | | | [facility];[place], [place] | | | | | [address] | | | + + + + + + + | Specimen | + + | Blood | + + + + + + + | Performing | Address | City/State/Zipcode | Phone Number | | Organization | | | | + + + + + | [facility] | [address] | [place] [address] | | + + + + + [...] | lung parenchyma is pink and spongy. Warpman sections are | | | submitted in [...] component was | | | performed by [facility], [address] [place] [address] | | | (Residential Remodeling Subcontractor: Maranda Brown MD; CLIA# [id number]). | | | Professional interpretation was performed by [facility] | | | Diagnostics, [facility], [address] | | | [place] [address]. Diagnostician: Danny Delaney MD | | | [...] | + + + + + | [facility] | [address] | [place] [address] | | + + + + + [...] | + + + + + | [facility] | [address] | [place] [address] | | + + + + + Protime-INR (05/23/2018 6:45 AM) + + + + + | Component | Value | Ref Range | Performed At | + + + + + | INR | 1.2Comment: REFERENCE | | [facility] | | | RANGE:0.9 - | [...] | | | performed at [facility];[address] | | | | | [address];[place] | | | | | [address] | | | + + + + + + + | Specimen | + + | Blood | + + + + + + + | Performing | Address | City/State/Zipcode | Phone Number | | Organization | | | | + + + + + | [facility] | [address] | [facility] [address] | | + + + + + Type and screen (05/23/2018 6:31 AM) + + + + + | Component | Value | Ref Range | Performed At | + + + + + | ABO/RH(D) | O POSITIVE | | [facility] | + + + + + | ANTIBODY SCREEN | NEGATIVE | | [facility] | + + + + + | ARM BAND NUMBER | [id number] | | [facility] | | | performed at [facility];[address] | | | | | [address];[place] | | | | | [address] | | | + + + + + + + | Specimen | + + | Blood | + + + + + + + | Performing | Address | City/State/Zipcode | Phone Number | | Organization | | | | + + + + + | [facility] | [address] | [place] [address] | | + + + + + [...] 3.5 to | | | 3.7, Starting [facility] 05/23/18 at 1205 | | + +---+ | | | + +---+ | potassium chloride oral | | | solution 40 mEq 40 mEq, Oral, | | | PRN, for serum potassium 3 to | | | 3.4, Starting [facility] 05/23/18 at 1205 | | + +---+ | | | + +---+ | potassium chloride oral | | | solution 60 mEq 60 mEq, Oral, | | | PRN, for serum potassium less | | | than 3, Starting [facility] 05/23/18 at | | | 1205 | [...]
--- OUTSIDE RECORDS SUMMARY | ~2018-08-01 | XMS | Encounter Summary ---
Demographics + + + | Address | [address] | | | [place] [address] | + + + | Home Phone | | + + + | Preferred Language | Unknown | + + + | Marital Status | | + + + | Jainism Affiliation | 1013 | + + + | Race | Unknown | + + + | Ethnic Group | Unknown | + + + Author + + + | Author | [employer] | + + + | Organization | [facility] [facility] | + + + | Address | Unknown | + + + | Phone | Unavailable | + + + Support + + +---------+ + | Name | Relationship | Address | Phone | + + +---------+ + | Sebastien Champion | ECON | Unknown | | + + +---------+ + Care Team Providers + +------+ + | Care Silk Blocker Name | Role | Phone | + +------+ + | Maria Vieira PA-C | PCP | | + +------+ + Encounter Details +--------+ + + + + | Date | Type | Department | Care Team | Description | +--------+ + + + + | 07/21/ | Hospital | [facility] | Michele Motta, | | | 2019 | Encounter | [facility] | MD [address] | | | | | Preadmission | [address] [facility] | | | | | Services [address] | [place] [address] | | | | | Blvd [place], [place] | [phone] | | | | | [address] | [...] [address] | | | | | | [place] [address] | | | | | | [phone] | | | | | | | | +--------+---------+ + + + | 08/15/ | Office | Cardiology | Sarai Arce | | | 2019 | Visit | | [address] | | | | | | [address] | | | | | | [place] [address] | | | | | | [phone] | | | | | | | | +--------+---------+ + + + | 08/19/ | Office | General Surgery | Michele Motta, | | | 2018 | Visit | | [address] | | | | | | [address] [place], | | | | | | [place] [address] | | | | | | [phone] | | | | | | | [...] | INR | 2.1Comment: REFERENCE | | [facility] | | | RANGE:0.9 [...] | | | | | performed at [facility];[address] | | | | | [address];[place] | | | | | [address] | | | + + + + + + + | Specimen | + + | Blood | + + + + + + + | Performing | Address | City/State/Zipcode | Phone Number | | Organization | | | | + + + + + | [facility] | [address] | [facility] [place] [address] | | + + + + + [...] >60Comment: GFR <60: | >60 mL/min/1.73m2 | [facility] | | | CHRONIC KIDNEY DISEASE, [...] the | | | | | MDRD IDAK traceable | | | | | equation.Testing | | | | | performed at [facility], [address] | | | | | [facility], | | | | | [place] [address] | | | + + + + + + + | Specimen | + + | Blood | + + + + + + + | Performing | Address | City/State/Zipcode | Phone Number | | Organization | | | | + + + + + | [facility] | [address] | [place] [address] | [phone] | | LABORATORY | Blvd[address] | | [...] | [facility] | | | performed at [facility], [address] | | LABORATORY | | | [address], | | | | | [place] [address] | | | + + + + + + + | Specimen | + + | Blood | + + + + + + + | Performing | Address | City/State/Zipcode | Phone Number | | Organization | | | | + + + + + | [facility] | [address] | [place] [address] | [phone] | | LABORATORY | [address]vd[address] | | | + + + + + MRSA by PCR (07/21/2018 5:18 PM) + + + + + | Component | Value | Ref Range | Performed At | + + + + + | SOURCE | NARES(NOSE) | | [facility] | + + + + + | MRSA PCR | NEGATIVEComment: Testing | NEGATIVE | [facility] | | | performed at [facility];[address] | | | | | [address];[place] | | | | | [address] | | | + + + + + + + | Specimen | + + | Nasopharyngeal - | | Nares(Nose) | + + + + + + + | Performing | Address | City/State/Zipcode | Phone Number | | Organization | | | | + + + + + | [facility] | [address] | [place] [address] | | + + + + + [...] + + + + | Calculated R Nephi | 56 | degrees | [facility] | + + + + + | Calculated T Nephi | 1 | degrees | [facility] [...] | + + + + + | [facility] | [address] | [place] [address] | | + + + + + in this encounter Visit Diagnoses Not on filein this encounter"
--- OUTSIDE RECORDS SUMMARY | ~2018-08-01 | XMS | Encounter Summary ---
Demographics + + + | Address | [address] | | | [place] [address] | + + + | Home Phone | | + + + | Preferred Language | Unknown | + + + | Marital Status | | + + + | Gnosticist Affiliation | 1013 | + + + | Race | Unknown | + + + | Ethnic Group | Unknown | + + + Author + + + | Author | [employer] | + + + | Organization | [facility] [facility] | + + + | Address | Unknown | + + + | Phone | Unavailable | + + + Support + + +---------+ + | Name | Relationship | Address | Phone | + + +---------+ + | Sebastien Champion | ECON | Unknown | | + + +---------+ + Care Team Providers + +------+ + | Care Bunch Breaker Machine Operator Name | Role | Phone [...] + + + + | 06/22/ | [facility] | [facility] | Licha Motta, | | | 2019 | [facility] | [address] | | | | | Endoscopy [address] | [address], | | | | | Blvd [place], [place] | [place] [address] | | | | | [address] | [phone] | | | | | | | [...] file. Follow up: Licha Motta MD [address] [facility] [address] [facility] [address] In 1 week for routine post operative visit. Maria Vieira PA-C [address] [place] [address] Medication List CONTINUE [...] questions or problems. Our office number is [phone] in this encounter Medications at Time of [...] JOSE[address] | | | | | | [place] [address] | | | | | | [phone] | | | | | | | | +--------+---------+ + + + | 08/15/ | Office | Cardiology | Sarai Arce | | | 2018 | Visit | | [address] | | | | | | [address] | | | | | | [place] [address] | | | | | | [phone] | | | | | | | | +--------+---------+ + + + | 08/19/ | Office | General Surgery | Licha Motta, | | | 2018 | Visit | | MD [address] | | | | | | [address] | | | | | | [place] [address] | | | | | | [phone] | | | | | | | [...] | INR | 1.1Comment: REFERENCE | | [facility] | | | RANGE:0.9 - | [...] | performed at [facility] | | | | | [address] [facility];[place], [place] | | | | | [address] | | | + + + + + + + | Specimen | + + | Blood | + + + + + + + | Performing | Address | City/State/Zipcode | Phone Number | | Organization | | | | + + + + + | [facility] | [address] | [place] [address] | | + + + + + [...]
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
--- OUTSIDE RECORDS SUMMARY | ~2018-08-01 | XMS | Encounter Summary ---
Demographics + + + | Address | [address] | | | [place] [address] | + + + | Home Phone | | + + + | Preferred Language | Unknown | + + + | Marital Status | | + + + | Jewish Affiliation | 1013 | + + + | Race | Unknown | + + + | Ethnic Group | Unknown | + + + Author + + + | Author | [facility] | + + + | Organization | [facility] [employer] [facility] | + + + | Address | Unknown | + + + | Phone | Unavailable | + + + Support + + +---------+ + | Name | Relationship | Address | Phone | + + +---------+ + | Sebastien Champion | ECON | Unknown | | + + +---------+ + Care Team Providers + +------+ + | Care Fountain Dispenser Name | Role | Phone | + [...] + + | 06/22/ | Anesthesia | [facility] | Israel Motta | | | 2019 | [facility] | [address] | | | | | Endoscopy [address] | [address] | | | | | [place], [place] | [place] [address] | | | | | [address] | [phone] | | | | | | | | +--------+ + + + + Anesthesia Record + + + + + | Procedure Name | Responsible | Anesthesia Start | Anesthesia Stop Time | | | Anesthesiologist | Time | | + + + + + | ESOPHAGOGASTRODUODEN | Abigail Veras, | 06/22/18 1445 | 06/22/18 1506 | | OSCOPY (N/A Upper | THREAD GRINDER | | | | GI) | | [...] Pt ID'd, ed H&P & plan discussed. SASFLEISCHMANNS, [place] O2. VS assessed | | | [...] [address] | | | | | | [place] [address] | | | | | | [phone] | | | | | | | | +--------+---------+ + + + | 08/15/ | Office | Cardiology | ClaudeSarai | | | 2018 | Visit | | [address] | | | | | | [address] | | | | | | [place] [address] | | | | | | [phone] | | | | | | | | +--------+---------+ + + + | 08/19/ | Office | General Surgery | Michele Motta, | | | 2018 | Visit | | MD [address] | | | | | | [address] [place], | | | | | | [place] [address] | | | | | | [phone] | | | | | | | [...]
--- OUTSIDE RECORDS SUMMARY | ~2018-08-01 | XMS | Encounter Summary ---
Demographics + + + | Address | [address] | | | [place] [address] | + + + | Home Phone | | + + + | Preferred Language | Unknown | + + + | Marital Status | | + + + | Congregation Affiliation | 1013 | + + + | Race | Unknown | + + + | Ethnic Group | Unknown | + + + Author + + + | Author | [facility] | + + + | Organization | [facility] | + + + | Address | Unknown | + + + | Phone | Unavailable | + + + Support + + +---------+ + | Name | Relationship | Address | Phone | + + +---------+ + | Sebastien Champion | ECON | Unknown | | + + +---------+ + Care Team Providers + +------+ + | Care Field Recruiter Name | Role | Phone | + [...] + | 05/11/ | Documentati | [facility] [place] | Jennyfer Zarate MA | Labs Only ([facility] | | 2019 | on Only | Cardiology [place] | | Labs 05/09/18) | | | | [address] [facility] [address] | | | | | | [facility] [address] | | | | | | [place] [address] | | | | | | [phone] | | | +--------+ + + + [...] [address] | | | | | | [place] [address] | | | | | | [phone] | | | | | | | | +--------+---------+ + + + | 08/15/ | Office | Cardiology | Sarai Arce | | | 2018 | Visit | | [address] | | | | | | [address] | | | | | | [place] [address] | | | | | | [phone] | | | | | | | | +--------+---------+ + + + | 08/19/ | Office | General Surgery | Michele Motta, | | | 2018 | Visit | | MD [address] | | | | | | [address] | | | | | | [place] [address] | | | | | | [phone] | | | | | | | | +--------+---------+ + + + as of this encounter Visit Diagnoses Not on filein this encounter"
--- OUTSIDE RECORDS SUMMARY | ~2018-08-01 | XMS | Encounter Summary ---
Demographics + + + | Address | [address] | | | [place] [address] | + + + | Home Phone | | + + + | Preferred Language | Unknown | + + + | Marital Status | | + + + | Latter Day Affiliation | 1013 | + + + | Race | Unknown | + + + | Ethnic Group | Unknown | + + + Author + + + | Author | [email or web address] [employer] | + + + | Organization | [facility] [employer] [facility] | + + + | Address | Unknown | + + + | Phone | Unavailable | + + + Support + + +---------+ + | Name | Relationship | Address | Phone | + + +---------+ + | Sebastien Champion | ECON | Unknown | | + + +---------+ + Care Team Providers + +------+ + | Care Electrical Linesworker Name | Role | Phone | + [...] + + | 07/21/ | Surgical | [facility] | Michele Motta, | Gastroesophageal | | 2019 | Consult | General Surgery [address] | reflux disease with | | | | [address] | [address], | hiatal hernia | | | | [place], [place] | [place] [address] | (Primary Dx) | | | | [address] | [phone] | | | | | [phone] | | | +--------+ + + + [...] visit. Allergies Allergen Reactions Spiriva Handihaler [Tiotropium Frazer Monohydrate] Shortness of Breath SocialHistory Social History [...] [address] | | | | | | [place] [address] | | | | | | [phone] | | | | | | | | +--------+---------+ + + + | 08/15/ | Office | Cardiology | Sarai Arce | | | 2018 | Visit | | [address] | | | | | | [address] | | | | | | [place] [address] | | | | | | [phone] | | | | | | | | +--------+---------+ + + + | 08/19/ | Office | General Surgery | Michele Motta, | | | 2018 | Visit | | MD [address] | | | | | | [address] [facility] | | | | | | [place] [address] | | | | | | [phone] | | | | | | | | +--------+---------+ + + + as of this encounter Visit Diagnoses + + | Diagnosis | + + | Gastroesophageal reflux disease with hiatal hernia - Primary | + + | Esophageal reflux | + +
--- OUTSIDE RECORDS SUMMARY | ~2018-08-01 | XMS | Encounter Summary ---
Demographics + + + | Address | [address] | | | [place] [address] | + + + | Home Phone | | + + + | Preferred Language | Unknown | + + + | Marital Status | | + + + | Nondenominational Affiliation | 1013 | + + + | Race | Unknown | + + + | Ethnic Group | Unknown | + + + Author + + + | Author | [employer] | + + + | Organization | [facility] | + + + | Address | Unknown | + + + | Phone | Unavailable | + + + Support + + +---------+ + | Name | Relationship | Address | Phone | + + +---------+ + | Sebastien Champion | ECON | Unknown | | + + +---------+ + Care Team Providers + +------+ + | Care Filter Press Supervisor Name | Role | Phone | [...] + + | 05/26/ | Telephone | [facility] | Sonia Samaniego RN | Post-op Follow Up | | 2019 | | Cardiothoracic | | (thoracoscopy f/u 2 | | | | Surgery [address] | | days post discharge) | | | | [address] | | | | | | [place], [place] | | | | | | [address] | | | | | | [phone] | | | +--------+ + + + [...] | | | | | [place] [address] | | | | | | [phone] | | | | | | | | +--------+---------+ + + + | 08/15/ | Office | Cardiology | Sarai Arce | | | 2018 | Visit | | [address] | | | | | | [address] | | | | | | [place] [address] | | | | | | [phone] | | | | | | | | +--------+---------+ + + + | 08/19/ | Office | General Surgery | Michele Motta, | | | 2018 | Visit | | MD [address]EE | | | | | | [address] [place] | | | | | | [place] [id number] | | | | | | [phone] | | | | | | | | +--------+---------+ + + + as of this encounter Visit Diagnoses Not on filein this encounter"
--- OUTSIDE RECORDS SUMMARY | ~2018-08-01 | XMS | Encounter Summary ---
Demographics + + + | Address | [address] | | | [place] [address] | + + + | Home Phone | | + + + | Preferred Language | Unknown | + + + | Marital Status | | + + + | Yarsani Affiliation | 1013 | + + + | Race | Unknown | + + + | Ethnic Group | Unknown | + + + Author + + + | Author | [facility] | + + + | Organization | [facility] | + + + | Address | Unknown | + + + | Phone | Unavailable | + + + Support + + +---------+ + | Name | Relationship | Address | Phone | + + +---------+ + | Sebastien Champion | ECON | Unknown | | + + +---------+ + Care Team Providers + +------+ + | Care Radiology Services Manager Name | Role | Phone [...] Smith | Jennyfer Zarate MA | Other ([place] | | 2019 | on Only | Cardiology [place] | | Esaph[facility] | | | | [address] | | Swollowing Function | | | | [address] | | Exam 04/25/2018) | | | | [place] [address] | | | | | | [phone] | | | +--------+ + + + [...] [address] | | | | | | [place] [address] | | | | | | [phone] | | | | | | | | +--------+---------+ + + + | 08/15/ | Office | Cardiology | Sarai Arce | | | 2018 | Visit | | [address] | | | | | | [address] | | | | | | [place] [address] | | | | | | [phone] | | | | | | | | +--------+---------+ + + + | 08/19/ | Office | General Surgery | Michele Motta, | | | 2018 | Visit | | MD Donna DEE | | | | | | [address] [facility] | | | | | | [place] [address] | | | | | | [phone] | | | | | | | | +--------+---------+ + + + as of this encounter Visit Diagnoses Not on filein this encounter"
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
--- OUTSIDE RECORDS SUMMARY | ~2018-08-01 | XMS | Encounter Summary ---
Demographics + + + | Address | [address] | | | [place] [address] | + + + | Home Phone | | + + + | Preferred Language | Unknown | + + + | Marital Status | | + + + | Oriental Orthodox Affiliation | 1013 | + + + | Race | Unknown | + + + | Ethnic Group | Unknown | + + + Author + + + | Author | [email or web address] | + + + | Organization | [email or web address] | + + + | Address | Unknown | + + + | Phone | Unavailable | + + + Support + + +---------+ + | Name | Relationship | Address | Phone | + + +---------+ + | Sebastien Champion | ECON | Unknown | | + + +---------+ + Care Team Providers + +------+ + | Care Palaeontologist Name | Role | Phone | + [...] + + | 06/22/ | Surgery | [facility] | Licha Motta, | ESOPHAGOGASTRODUODEN | | 2019 | | [facility] | [address] | [place] | | | | Endoscopy [address] | [address] [facility] | | | | | [address] [place], [place] | [place] [address] | | | | | [address] | [phone] | | | | | | | [...] note may be different from the original. [facility] Service: General Surgery Brief Post-op Discharge Note [...] on file. Follow up: Licha Motta MD [address] [place] [address] In 1 week for routine post operative visit. Maria Vieira PA-C [address] [facility] [address] Medication List CONTINUE taking these medications [...] questions or problems. Our office number is [phone] in this encounter Medications at Time of [...] 2018 | Visit | | [address] | | | | | | [place] [address] | | | | | | [phone] | | | | | | | | +--------+---------+ + + + | 08/15/ | Office | Cardiology | LeonardomonicaSarai [place]hton | | | 2018 | Visit | | [address] | | | | | | [address] | | | | | | [place] [address] | | | | | | [phone] | | | | | | | | +--------+---------+ + + + | 08/19/ | Office | General Surgery | Licha Motta, | | | 2018 | Visit | | MD [address]EE | | | | | | [address] [facility] | | | | | | [place] [address] | | | | | | [phone] | | | | | | | [...] | INR | 1.1Comment: REFERENCE | | [facility] | | | RANGE:0.9 - | [...] at [facility];[address] | | | | | [facility];[place], [place] | | | | | [address] | | | + + + + + + + | Specimen | + + | Blood | + + + + + + + | Performing | Address | City/State/Zipcode | Phone Number | | Organization | | | | + + + + + | [facility] | [address] | [place] [address] | | + + + + + [...]
--- OUTSIDE RECORDS SUMMARY | ~2018-08-01 | XMS | Encounter Summary ---
Demographics + + + | Address | [address] | | | [place] [address] | + + + | Home Phone | | + + + | Preferred Language | Unknown | + + + | Marital Status | | + + + | Rastafarian Affiliation | 1013 | + + + | Race | Unknown | + + + | Ethnic Group | Unknown | + + + Author + + + | Author | [facility] [facility] | + + + | Organization | [facility] | + + + | Address | Unknown | + + + | Phone | Unavailable | + + + Support + + +---------+ + | Name | Relationship | Address | Phone | + + +---------+ + | Sebastien Champion | ECON | Unknown | | + + +---------+ + Care Team Providers + +------+ + | Care Sales Account Director Name | Role | Phone | [...] + + | 06/20/ | Telephone | [facility] | Michele Motta, | Other (Needs to | | 2019 | | General Surgery [address] | MD [address] | speak w/ Registered | | | | [address] | [address] [place], | Nurse) | | | | [place], [place] | [place] [address] | | | | | [address] | [phone] | | | | | [phone] | | | +--------+ + + + [...] [address] | | | | | | [place] [address] | | | | | | [phone] | | | | | | | | +--------+---------+ + + + | 08/15/ | Office | Cardiology | Sarai Arce | | | 2018 | Visit | | [address] | | | | | | [address] | | | | | | [place] [address] | | | | | | [phone] | | | | | | | | +--------+---------+ + + + | 08/19/ | Office | General Surgery | Michele Motta, | | | 2018 | Visit | | MD [address] | | | | | | [address] [place], | | | | | | [place] [address] | | | | | | [phone] | | | | | | | | +--------+---------+ + + + as of this encounter Visit Diagnoses Not on filein this encounter"
[~2018-08-01 21:57] MED LIST changes: +BISOPROLOL FUMA10 MG PO; +GABAPENTIN300 MG PO; +METHOCARBAMOL500 MG PO; +NORCO 7.5-3251 EACH PO; -TOPROL XL100 MG PO
--- OUTSIDE RECORDS SUMMARY | 2018-08-01 22:00 | XMS ---
PreManage Notification: CATY VALLEJO Security Forms Examiner Events No recent Security Events currently on file CRITERIA MET - [facility] CARE PROVIDERS There are no care providers on record at this time. Pasquale has no Care Guidelines for this patient. Jamila VISIT COUNT (12 MO.) 2 DAYNE Hernández TOTAL 2 NOTE: Visits indicate total known visits. 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 - Chronic atrial fibrillation - Acquired absence of other specified parts of digestive tract - Unspecified fall, initial encounter - Pleurodynia - Personal history of nicotine dependence INPATIENT VISIT TRACKING (12 MO.) 07/29/2018 10:17 [facility] Romel JONAS TYPE: Recovery DIAGNOSES: - Diaphragmatic hernia without obstruction or gangrene - Paraesophageal hernia - Gastro-esophageal reflux disease without esophagitis 05/23/2018 05:34 [facility] Romel JONAS TYPE: Cardiology DIAGNOSES: - Emphysema, unspecified [email or web address]
[2018-08-01] MEDS ORDERED: LISINOPRIL5 MG PO (23:01)
[2018-08-01] MEDS ORDERED: SYMBICORT 16010.2 GM INH (23:02)
--- NOTE | 2018-08-02 16:56 | EKG ---
[facility] [address] [facility] [place], [place] [address] Signed Atrial fibrillation Right bundle branch block Abnormal ECG No previous ECGs available Confirmed by ROSETTA BARTON DO ([id number]) on 08/02/2018 4:56:21 PM Electronically Signed By: ROSETTA BARTON DO 08/02/18 1656 PATIENT NAME: CATY VALLEJO DEX Electrocardiogram DATE OF : 59 PHYSICIAN: ROSETTA BARTON DO REPORT #: [id number] REPORT IS CONFIDENTIAL AND NOT TO BE RELEASED WITHOUT AUTHORIZATION
== END 2018-08-02 02:50 | disposition short-term general hospital (02) ==
LOC: ED 21:57
DX: G89.18 Other acute postprocedural pain (principal); R10.12 Left upper quadrant pain; I48.91 Unspecified atrial fibrillation; J45.909 Unspecified asthma, uncomplicated; Z79.899 Other long term (current) drug therapy; Z79.01 Long term (current) use of anticoagulants
CPT/HCPCS: 74177; 80053; 83690; 85025; 85730; 93005; 93010; 96361; 99285-25; J1170; J1200; J2765; J3010; J7030; Q9967

== ENCOUNTER 2019-02-25 22:07 | Inpatient (IN) | payer MEDICARE ==
[~2019-02-25] VITALS: Ht 198.1 cm; Wt 89.6 kg
--- OUTSIDE RECORDS SUMMARY | ~2019-02-25 | XMS | Encounter Summary ---
Demographics + + + | Address | [address] | | | [place] [address] | + + + | Home Phone | | + + + | Preferred Language | Unknown | + + + | Marital Status | | + + + | Religion Affiliation | 1013 | + + + | Race | Unknown | + + + | Ethnic Group | Unknown | + + + Author + + + | Author | [facility] | | | and [place] | + + + | Organization | [facility] | | | and [...] Team Providers + +------+ + | Care Industrial Spraypainter Name | Role | Phone | + +------+ + | Maria Vieira | PCP | | + +------+ + Encounter Details +--------+ + + + + | Date | Type | Department | Care Team | Description | +--------+ + + + + | 12/23/ | Hospital | [facility] | Michele Motta MD | Bloating; | | 2019 | Encounter | [facility] | [address] [place] | Postprandial | | | | [address] [place] | [address] [place], [place] | epigastric pain | | | | [address] [place], [place] | [address] | | | | | [address] | | | | | | [phone] | [facility] | | +--------+ + + + + [...] + +---------+ + | No | 0 | 0.0 | | | | Standard | | | | | drinks or | | | | | | | | | | equivalen | | | | | t | | | + + +---------+ + [...] + + +---------+ + + | albuterol 90 | Inhale 2 puffs into | | 0 | | | | mcg/puff inhaler | the lungs every 4 | | | | | | | (four) hours as | | | | | | | needed. | | | | | + + + +---------+ + + | bisoprolol | Take 1 tablet by | | 0 | 05/05/19 | | | (ZEBETA) 10 MG | mouth daily. | | | 19 | 0 | | tablet | | | | | | + + + +---------+ + + | cholestyramine | Take 1 packet by | 60 | 0 | 12/24/19 | | | light (QUESTRAN) 4 g | mouth Daily. | tablet | | 19 | | | packet | | | | | | + + + +---------+ + + | fluticasone | Inhale 1 puff into | | 0 | | | | (FLOVENT HFA) 220 | the lungs 2 times | | | | | | mcg/puff inhaler | daily. | | | | | + + + +---------+ + + | furosemide (LASIX) | | | 0 | 08/16/19 | | | 20 mg tablet | | | | 19 | | + + + +---------+ + + | gabapentin | TAKE ONE CAPSULE BY | | 0 | //20 | | | (NEURONTIN) 300 mg | MOUTH THREE TIMES | | | 19 | | | capsule | DAILY | | | | | + + + +---------+ + + | HYDROmorphone | TK 1 T PO Q 4 HOURS | | 0 | 08/12/19 | | | (DILAUDID) 2 mg | PRN | | | 19 | | | tablet | | | | | | + + + +---------+ + + | lisinopril | | | 0 | 07/26/19 | | | (PRINIVIL, ZESTRIL) | | | | 19 | | | 5 mg tablet | | | | | | [...] + + + +---------+ + + | potassium chloride | | | 0 | 08/16/19 | | | (MICRO-K) 10 mEq CR | | | | 19 | | | capsule | | | [...] +---------+ + + | warfarin | Take 6-8 mg by mouth | | 0 | | | | (COUMADIN) 4 MG | See Admin | | | | | | tablet | Instructions. Take 6 | | | | | | | mg by mouth on | | | | | | | Mondays, Wednesday | | | | | | | and Fridays, take 8 | | | | | | | mg on all other days | | | | | + + [...] as of this encounter Plan of Treatment Not on filedocumented as of this encounter Procedures + +--------+ + + + | Procedure Name | Priori | Date/Time | Associated Diagnosis | Comments | | | ty | | | | + +--------+ + + + | FL UGI W AIR | STAT | 12/23/2018 | Bloating | Results for this | | CONTRAST | | 15:20 PDT | Postprandial | procedure are in the | | | | | epigastric pain | results section. | + +--------+ + + + documented in this encounter Results FL UGI w Air Contrast (12/23/2018 15:20 PDT) + + | Specimen | + + | | + + + + + | Narrative | Performed At | + + + | UPPER GI WITH AIR AND BARIUM CONTRAST CLINICAL INFORMATION: | [facility] | | Bloating. Postprandial epigastric pain. COMPARISON: CT ABDOMEN | | | PELVIS W CONTRAST (08/09/2018); PROCEDURE: During and following | | | ingestion of effervescent granules and liquid barium, images of the | | | esophagus, stomach and duodenum with fluoroscopic spot images and/or | | | rapid sequence imaging. Fluoro Time: | | | 1.8 minute(s)8 seconds. Total number of images: 41. | | | FINDINGS: Pharynx appears symmetric and demonstrates no abnormal | | | pooling of contrast. No evidence of laryngeal penetration or | | | aspiration seen. Esophagus appears to be normal in contour without | | | visualization of ulceration, diverticula, mass or mucosal | | | irregularity. Gastroesophageal junction and gastric cardia appear | | | unremarkable. There is moderate amount of ingested material noted | | | within the stomach. Therefore the gastric mucosa, as well as presence | | | of gastric mass were not well assessed. Esophageal motility | | | evaluation appears normal. No hiatal hernia seen. There was | | | gastroesophageal reflux seen during the examination. A 13 mm | | | barium tablet passes freely through the esophagus into the stomach. | | | IMPRESSION: Gastroesophageal reflux seen. There is moderate | | | amount of ingested material noted within the stomach. Therefore the | | | gastric mucosa, as well as presence of gastric mass were not well | | | assessed. Otherwise negative study. Signed by: Pankaj Honeycutt, | | | Jose Sign Date/Time: 12/23/2018 3:41 PM | | + + + + + | Procedure Note | + + | Perfecto, Rad Results In - 12/23/2018 1545 PDT | | UPPER GI WITH AIR AND BARIUM CONTRAST | | | | CLINICAL INFORMATION: | | Bloating. Postprandial epigastric pain. | | | | COMPARISON: | | CT ABDOMEN PELVIS W CONTRAST (08/09/2018); | | | | PROCEDURE: | | During and following ingestion of effervescent granules and liquid | | barium, images of the esophagus, stomach and duodenum with fluoroscopic | | spot images and/or rapid sequence imaging. | | | | Fluoro Time: 1.8 minute(s)8 seconds. Total number of images: 41. | | | | FINDINGS: | | Pharynx appears symmetric and demonstrates no abnormal pooling of | | contrast. No evidence of laryngeal penetration or aspiration seen. | | | | Esophagus appears to be normal in contour without visualization of | | ulceration, diverticula, mass or mucosal irregularity. Gastroesophageal | | junction and gastric cardia appear unremarkable. | | | | There is moderate amount of ingested material noted within the stomach. | | Therefore the gastric mucosa, as well as presence of gastric mass were | | not well assessed. | | | | Esophageal motility evaluation appears normal. No hiatal hernia seen. | | | | There was gastroesophageal reflux seen during the examination. | | | | A 13 mm barium tablet passes freely through the esophagus into the | | stomach. | | | | IMPRESSION: | | Gastroesophageal reflux seen. | | There is moderate amount of ingested material noted within the stomach. | | Therefore the gastric mucosa, as well as presence of gastric mass were | | not well assessed. | | Otherwise negative study. | | | | | | | | Signed by: Pankaj Honeycutt Amit | | Sign Date/Time: 12/23/2018 3:41 PM | + + + +---------+ + + | Performing | Address | City/State/Zipcode | Phone Number | | Organization | | | | + +---------+ + + | [facility] | | | | + +---------+ + + documented in this encounter Visit Diagnoses + + | Diagnosis | + + | Bloating Flatulence, eructation, and gas pain | + + | Postprandial epigastric pain Abdominal pain, epigastric | + + documented in this encounter Administered Medications + +--------+ +---------+------+------+ | Medication Order | MAR | Action | Dose | Rate | Site | | | Action | Date | | | | + +--------+ +---------+------+------+ | barium (LIQUID E-Z-PAQUE) 60% | Given | 12/24/19 | 300 mLs | | | | contrast suspension 300 mL 300 | | 19 14:45 | | | | | mL, Oral, ONCE, 12/23/18 at | | PDT | | | | | 1445, For 1 dose, Oskar hunter., | | | | | | | Radiology | | | | | | + +--------+ +---------+------+------+ +---+---+ | | | +---+---+ documented in this encounter"
--- OUTSIDE RECORDS SUMMARY | ~2019-02-25 | XMS | Clinical Summary ---
Demographics + + + | Address | [address] | | | [place] [address] | + + + | Home Phone | | + + + | Preferred Language | Unknown | + + + | Marital Status | | + + + | Congregation Affiliation | 1013 | + + + | Race | Unknown | + + + | Ethnic Group | Unknown | + + + Author + + + | Author | [facility] | | | and [place] | + + + | Organization | [facility] | | | [...] Team Providers + +------+ + | Care Stores Laborer Name | Role | Phone | + +------+ + | Maria Vieira | PCP | | + +------+ + Allergies + + + + + + | Active Allergy | Reactions | Severity | Noted | Comments | | | | | Date | | + + + + + + | Gabapentin | Other (See Comments) | Medium | 07/22/19 | Dizziness and | | | | | 19 | lightheadedness | + + + + + + | Tiotropium | Shortness Of Breath | High | 12/23/19 | | | | | | 18 | | + + + + + + Medications + + + +---------+------+------+-------+ | Medication | Sig | Dispensed | Refills | Star | End | Statu | | | | | | t | Date | s | | | | | | Date | | | + + + +---------+------+------+-------+ | warfarin | Take 4 mg by mouth | | 0 | | | Activ | | (COUMADIN) 4 MG | Daily. | | | | | e | | tablet | | | | | | | + + + +---------+------+------+-------+ | fluticasone | Inhale 1 puff into | | 0 | | | Activ | | (FLOVENT HFA) 220 | the lungs 2 times | | | | | e | | mcg/puff inhaler | daily. | | | | | | + + + +---------+------+------+-------+ | omeprazole | Take 20 mg by mouth | | 0 | | | Activ | | (PRILOSEC) 20 mg | every morning | | | | | e | | capsule | (before breakfast). | | | | | | + + + +---------+------+------+-------+ | albuterol | Inhale 2 puffs into | | 0 | | | Activ | | (VENTOLIN HFA) 90 | the lungs every 6 | | | | | e | | mcg/puff inhaler | hours as needed for | | | | | | | | Wheezing. | | | | | | + + + +---------+------+------+-------+ | sildenafil | Take 50 mg by mouth | | 0 | | | Activ | | (VIAGRA) 50 MG | as needed for | | | | | e | | tablet | Erectile | | | | | | | | Dysfunction. | | | | | | + + + +---------+------+------+-------+ | acetaminophen | Take 2 tablets by | | 0 | 02/0 | | Activ | | (TYLENOL) 500 mg | mouth every 8 | | | 5/20 | | e | | tablet | (eight) hours. | | | 19 | | | + + + +---------+------+------+-------+ | bisoprolol | Take 1 tablet by | | 0 | / | / | Activ | | (ZEBETA) 10 MG | mouth daily. | | | 11/05 | 11/05 | e | | tablet | | | | 19 | 20 | | + + + +---------+------+------+-------+ | albuterol 90 | Inhale 2 puffs into | | 0 | | | Activ | | mcg/puff inhaler | the lungs every 4 | | | | | e | | | (four) hours as | | | | | | | | needed. | | | | | | + + + +---------+------+------+-------+ | warfarin | Take 6-8 mg by mouth | | 0 | | | Activ | | (COUMADIN) 4 MG | See Admin | | | | | e | | tablet | Instructions. Take 6 | | | | | | | | mg by mouth on | | | | | | | | Mondays, Wednesday | | | | | | | | and Fridays, take 8 | | | | | | | | mg on all other days | | | | | | + + + +---------+------+------+-------+ | furosemide (LASIX) | | | 0 | 04/2 | | Activ | | 20 mg tablet | | | | 9/20 | | e | | | | | | 19 | | | + + + +---------+------+------+-------+ | gabapentin | TAKE ONE CAPSULE BY | | 0 | 02/0 | | Activ | | (NEURONTIN) 300 mg | MOUTH THREE TIMES | | | 5/20 | | e | | capsule | DAILY | | | 19 | | | + + + +---------+------+------+-------+ | HYDROmorphone | TK 1 T PO Q 4 HOURS | | 0 | 04/2 | | Activ | | (DILAUDID) 2 mg | PRN | | | 5/20 | | e | | tablet | | | | 19 | | | + + + +---------+------+------+-------+ | lisinopril | | | 0 | 04/0 | | Activ | | (PRINIVIL, ZESTRIL) | | | | 8/20 | | e | | 5 mg tablet | | | | 19 | | | + + + +---------+------+------+-------+ | methocarbamol | TAKE ONE TABLET BY | | 0 | 02/0 | | Activ | | (ROBAXIN) 500 mg | MOUTH THREE TIMES | | | 5/20 | | e | | tablet | DAILY NEEDED | | | 19 | | | + + + +---------+------+------+-------+ | potassium chloride | | | 0 | 04/2 | | Activ | | (MICRO-K) 10 mEq CR | | | | 9/20 | | e | | capsule | | | | 19 | | | + + + +---------+------+------+-------+ | cholestyramine | Take 1 packet by | 60 | 0 | 09/0 | | Activ | | light (QUESTRAN) 4 g | mouth Daily. | tablet | | 10/06 | | e | | packet | | | | 19 | | | + + + +---------+------+------+-------+ Active Problems + + + | Problem | Noted Date | + + + | Encounter for monitoring diuretic therapy | 09/05/2018 | + + + | Encounter for removal of biliary stent | 08/17/2018 | + + + + + | Overview: Added automatically from request for surgery [id number] | + + + + + | Acute postoperative pain of abdomen | 08/02/2018 | + + + | Essential hypertension | 05/19/2018 | + + + | Mild ascending aorta dilatation | 05/19/2018 | + + + | Mixed hyperlipidemia | 05/19/2018 | + + + | Anticoagulated on Coumadin | 05/05/2018 | + + + | Bulla of lung | 05/05/2018 | + + + + + | Overview: Added automatically from request for surgery [id number] | + + + + + | Enlarged RV (right ventricle) | 05/05/2018 | + + + | Other emphysema | 05/05/2018 | + + + | Paraesophageal hiatal hernia | 05/05/2018 | + + + | Exertional shortness of breath | 01/07/2018 | + + + | Permanent atrial fibrillation | 09/29/2017 | + + + | Simple chronic bronchitis | 09/29/2017 | + + + Encounters +--------+ + + + + | Date | Type | Specialty | Care Team | Description | +--------+ + + + + | 12/28/ | Telephone | General Surgery | Michele Motta MD | Results, Imaging | | 2018 | | | | | +--------+ + + + + | 12/23/ | Hospital | Radiology | Michele Motta MD | Bloating; | | 2018 | Encounter | | Rad, [facility] | Postprandial | | | | | | epigastric pain | +--------+ + + + + | 12/23/ | Office | General Surgery | Michele Motta MD | Bloating (Primary | | 2018 | Visit | | | Dx); Postprandial | | | | | | epigastric pain | +--------+ + + + + | 12/21/ | Telephone | General Surgery | Michele Motta MD | Follow-up | | 2018 | | | | (reschedule) | +--------+ + + + + | 12/16/ | Telephone | General Surgery | Michele Motta MD | Chest Pain Follow-up | | 2018 | | | | | +--------+ + + + + | 12/15/ | Telephone | General Surgery | Michele Motta MD | Other (message for | 2018 | | | | Dr. Motta) | +--------+ + + + + from Last 3 Months Immunizations + + + + | Name | Dates Previously Given | Next Due | + + + + | INFLUENZA PF | 02/02/2017 | | | QUAD(PED/ADOL/ADULT) | | | | ,PSKT or VIAL | | | + + + + Family History + + +------+ + | Medical History | Relation | Name | Comments | + + +------+ + | COPD | Father | | | + + +------+ + | Emphysema | Father | | | + + +------+ + | Cancer | Mother | | Lung cancer | + + +------+ + | Lung cancer | Other | | family history | + + +------+ + | Breast cancer | Other | | family history | + + +------+ + | COPD | Other | | family history | + + +------+ + | Malig hypertherm | Neg Hx | | | + + +------+ + + +------+ + + | Relation | Name | Status | Comments | + +------+ + + | Father | | | | + +------+ + + | Mother | | | | + +------+ + + | Other | | | | + +------+ + + | Other | | | | + +------+ + + | Other | | | | + +------+ + + Social History + +-------+ +--------+------+ [...] recent travel history available. | + + Last Filed Vital Signs + + + + | Vital Sign | Reading | Time Taken | + + + + | Blood Pressure | 135/90 | 12/23/2018 1040 PDT | + + + + | Pulse | 80 | 12/23/2018 1040 PDT | + + + + | Temperature | 36.7 C (98 F) | 12/23/2018 1040 PDT | + + + + | Respiratory Rate | 16 | 11/07/2018 1304 PDT | + + + + | Oxygen Saturation | 99% | 12/23/20181039 PDT | + + + + | Inhaled Oxygen | - | - | | Concentration | | | + + + + | Weight | 94.3 kg (208 lb) | 12/23/20181039 PDT | + + + + | Height | 182.9 cm (6') | 12/23/20181039 PDT | + + + + | Body Mass Index | 28.21 | 12/23/20181039 PDT | + + + + Plan of Treatment + + + + + | Health Maintenance | Due Date | Last Done | Comments | + + + + + | Vaccine: | | | | | Dtap/Tdap/Td (1 - | 7 | | | | Tdap) | | | | + + + + + | Vaccine: | | | | | Pneumococcal 19-64 | 7 | | | | (PPSV23 only) Medium | | | | | Risk (1 of 1 - | | | | | PPSV23) | | | | + + + + + | Colorectal Cancer | | | | | Screening | 8 | | | | (Colonoscopy) | | | | + + + + + | Vaccine: Zoster (1 | | | | | of 2) | 8 | | | + + + + + | Adult Annual | | | | | Wellness Visit | 9 | | | + + + + + | Vaccine: Influenza | | 02/02/2017 | | | (#1) | 9 | | | + + + + + | Hepatitis C | Completed | 06/13/2012 | | | Screening | | | | + + + + + Implants + +------+-------+ +--------+--------+--------+ | Implanted | Type | Area | Manufacture | Device | Shelf | Model | | | | | r | | Expira | / | | | | | | Identi | tion | Serial | | | | | | fier | Date | / Lot | + +------+-------+ +--------+--------+--------+ | Stent Bili Advnx 10fr 5cm - | | N/A: | [employer] | | 01/26/ | [id number] | | [id number]: Qty: 1 on | | Bile | SCIENTIFIC | | 2019 | 320 / | | 08/03/2018 by Laurie, | | Duct | [facility] | | | [id number] | | Cholo Vera MD | | | | | | 219 | + +------+-------+ +--------+--------+--------+ Procedures + +--------+ + + + | [...] section. | + +--------+ + + + from Last 3 Months Results FL UGI w Air Contrast (12/23/2018 [...] | | | | Signed by: Pankaj Honeycutt, Jose | | Sign Date/Time: 12/23/2018 3:41 PM | + + + +---------+ + + | Performing | Address | City/State/Zipcode | Phone Number | | Organization | | | | + +---------+ + + | [facility] | | | | + +---------+ + + from Last 3 Months Insurance + +--------+ +--------+ +---------+--------+ | Payer | Benefi | Subscriber | Effect | Phone | Address | Type | | | t Plan | ID | sera | | | | | | / | | Dates | | | | | | Group | | | | | | + +--------+ +--------+ +---------+--------+ | MEDICARE | [employer]ILRO | [id number] | 08/18/19 | [phone] | | Medica | | | AD | | 04-Pre | 5 | | re | | | MEDICA | | sent | | | | | | RE | | | | | | + +--------+ +--------+ +---------+--------+ | MEDICARE | [employer] | [id number] | 08/18/19 | [phone] | | Medica | | | AD | | 04-Pre | 5 | | re | | | MEDICA | | sent | | | | | | RE | | | | | | + +--------+ +--------+ +---------+--------+ + +--------+ +--------+ + + | Guarantor Name | Accoun | Relation to | Date | Phone | Billing Address | | | t Type | Patient | of | | | | | | | | | | + +--------+ +--------+ + + | Mason Champion | Person | Self [birth year] | [address] | | [place]ishnu | al/Fam | | 8 | [phone] | [place] | | | [place] | | | 0 (Home) | [phone] | + +--------+ +--------+ + + | Mason Champion | Person | Self | [birth year] | [address] | | [place] | al/Fam | | 1955 | [phone] | [place] | | | [place] | | | 0 (Home) | [phone] | + +--------+ +--------+ + + Advance Directives Patient has advance care planning documents on file. For more information, please contact:[facility] [address]"
--- OUTSIDE RECORDS SUMMARY | ~2019-02-25 | XMS | Clinical Summary ---
Demographics + + + | Address | [address] | | | [place] [address] | + + + | Home Phone | | + + + | Preferred Language | Unknown | + + + | Marital Status | | + + + | Religion Affiliation | 1013 | + + + | Race | Unknown | + + + | Ethnic Group | Unknown | + + + Author + + + | Author | [facility] (Historical as of | | | 12-03-18) | + + + | Organization | [facility] (Historical as of | | | 12-03-18) | + + + | Address | Unknown | + + + | Phone | Unavailable | + + + Support + + +---------+ + | Name | Relationship | Address | Phone | + + +---------+ + | Akira,Sebastien | ECON | Unknown | | + + +---------+ + Care Team Providers + +------+ + | Care Water Server Name | Role | Phone | + +------+ + | Maria Vieira PA-C | PP | | + +------+ + Allergies + [...] + + + + + | Tiotropium [place] | Shortness of Breath | High | 12/23/19 | | | Monohydrate | | | 18 | | + + + + + + Current Medications + + +---------+---------+------+------+-------+ | Prescription | Sig. | Disp. | Refills | Star | End | Statu | | | | | | t | Date | s | | | | | | Date | | | + + +---------+---------+------+------+-------+ | warfarin | Take 6-8 mg by mouth | | | | | Activ | | (COUMADIN) [...] | | | | | + + +---------+---------+------+------+-------+ | albuterol | Inhale 2 puffs into | | | | | Activ | | (PROVENTIL | the lungs every 4 | | | | | e | | HFA;VENTOLIN HFA) | (four) hours as | | | | | | | 108 (90 Base) | needed. | | | | | | | MCG/ACT inhaler | | | | | | | + + +---------+---------+------+------+-------+ | | Inhale 2 puffs into | 1 | 12 | 10/0 | | Activ | | budesonide-formotero | the lungs 2 (two) | Inhaler | | 1/20 | | e | | l (SYMBICORT) | times daily. | | | 18 | | | | 160-4.5 MCG/ACT | | | | | | | | inhaler | | | | | | | + + +---------+---------+------+------+-------+ | bisoprolol | Take 1 tablet by | 30 | 11 | /1 | 01/1 | Activ | | (ZEBETA) 10 MG | mouth daily. | tablet | | 7/20 | 11/05 | e | | tabletIndications: | | | | 19 | 20 | | | Permanent atrial | | | | | | | | fibrillation (HCC) | | | | | | | + + +---------+---------+------+------+-------+ | acetaminophen | Take 2 tablets by | 30 | 0 | 02/ | | Activ | | (TYLENOL) 500 MG | mouth every 8 | tablet | | 09/05 | | e | | tablet | (eight) hours. | | | 19 | | | + + +---------+---------+------+------+-------+ Active Problems + + + | Problem | Noted Date | + + + | Risk factors for obstructive sleep apnea | 11/07/2018 | + + + | Encounter for monitoring diuretic therapy | 09/05/2018 | + + + | Encounter for removal of biliary stent | 08/17/2018 | + + + + + | Overview: Added automatically from request for surgery [id number] | + + + + + | Acute postoperative pain of abdomen | 08/02/2018 | + + + | Mixed hyperlipidemia | 05/19/2018 | + + + | Essential hypertension | 05/19/2018 | + + + | Mild ascending aorta dilatation (HCC) | 05/19/2018 | + + + | Lung bullae (HCC) | 05/10/2018 | + + + + + | Overview: Added automatically from request for surgery [id number] | + + + + + | Other emphysema (HCC) | 05/05/2018 | + + + | Lung disease, bullous (HCC) | 05/05/2018 | + + + | Anticoagulated on Coumadin | 05/05/2018 | + + + | Enlarged RV (right ventricle) | 05/05/2018 | + + + | Exertional shortness of breath | 01/07/2018 | + + + | Chronic bronchitis, simple (HCC) | 09/29/2017 | + + + | Permanent atrial fibrillation (HCC) | 09/29/2017 | + + + Resolved Problems + + + + | Problem | Noted | Resolved | | | Date | Date | + + + + | Paraesophageal hiatal hernia | 05/05/19 | | | | 19 | 9 | + + + + Immunizations + + + + | Name | Dates Previously Given | Next Due | + + + + | INFLUENZA PF, | 02/02/2017 | | | QUADRIVALENT | | | | (PED/ADOL/ADULT) | | | + + + + Family History + + +------+ + | Medical History | Relation | Name | Comments | + + +------+ + | COPD | Father | | | + + +------+ + | Emphysema | Father | | | + + +------+ + | Cancer | Mother | | Lung cancer | + + +------+ + | Malig hypertherm | Neg Hx | | | + + +------+ + + +------+ + + | Relation | Name | Status | Comments | + +------+ + + | Father | | | | + +------+ + + | Mother | | | | + +------+ + + Social History + +-------+ +--------+ [...] on file | | + + + Last Filed Vital Signs + + + + | Vital Sign | Reading | Time Taken | + + + + | Blood Pressure | 114/74 | 11/07/2018 12:56 PM PDT | + + + + | Pulse | 93 | 11/07/2018 12:56 PM PDT | + + + + | Temperature | 36.2 C (97.1 F) | 09/28/2018 9:02 AM PDT | + + + + | Respiratory Rate | 16 | 11/07/2018 12:56 PM PDT | + + + + | Oxygen Saturation | 96% | 11/07/2018 12:56 PM PDT | + + + + | Inhaled Oxygen | - | - | | Concentration | | | + + + + | Weight | 94.6 kg (208 lb 9.6 | 11/07/2018 12:56 PM PDT | | | oz) | | + + + + | Height | 182.9 cm (6') | 11/07/2018 12:56 PM PDT | + + + + | Body Mass Index | 28.29 | 11/07/2018 12:56 PM PDT | + + + + Plan of Treatment +--------+---------+ + + + | Date | Type | Specialty | Care Team | Description | +--------+---------+ + + + | 03/30/ | Office | | Edwina Ferguson DO | | | 2019 | Visit | | [address] | | | | | | [place] | | | | | | [address] | | | | | | | | +--------+---------+ + + + + + + + [...] | + + + + + | Colon Cancer | | | | | Screening [...] | Area | Manufacture | Device | Expira | Model | | | | | r | | tion | / | | | | | | Identi | Date | Serial | | | | | | fier | | / Lot | + +------+-------+ +--------+--------+--------+ | Stent Bili Advnx 10fr 5cm - | | N/A: | [facility] | | 01/26/ | [id number] | | [id number]: Qty: 1 on | | Bile | SCIENTIFIC | | 2019 | 320 / | | 08/03/2018 by Laurie, | | Duct | TYLER - [employer]SCI | | | /[id number] | | Cholo Vera MD | | | | | | 219 | + +------+-------+ +--------+--------+--------+ Results Not on filefrom Last 3 Months Insurance + +--------+ +------+-------+ + | Payer | Benefi | Subscriber | Type | Phone | Address | | | t Plan | ID | | | | | | / | | | | | | | Group | | | | | + +--------+ +------+-------+ + | MEDICARE | MEDICA | [id number] | | | [phone] | | | RE | | | | [place] [address] | | | [place]URA | | | | | | | AD | | | | | + +--------+ +------+-------+ + + +--------+ +--------+ + + | Guarantor Name | Accoun | Relation to | Date | Phone | Billing Address | | | t Type | Patient | of | | | | | | | | | | + +--------+ +--------+ + + | MASON VALLEJO | Person | Self [birth year] Home: | [address] | | DEX | al/Fam | | [phone] | [phone] [place] | | | [place] | | | [phone] | [address] | + +--------+ +--------+ + +"
--- OUTSIDE RECORDS SUMMARY | ~2019-02-25 | XMS | Encounter Summary ---
Demographics + + + | Address | [address] | | | [place] [address] | + + + | Home Phone | | + + + | Preferred Language | Unknown | + + + | Marital Status | | + + + | Sikhism Affiliation | 1013 | + + + | Race | Unknown | + + + | Ethnic Group | Unknown | + + + Author + + + | Author | [facility] | | | and [place] | + + + | Organization | [facility] | | [...] Team Providers + +------+ + | Care Admissions Manager Rn Name | Role | Phone | + +------+ + | Maria Vieira | PCP | | + +------+ + Reason for Visit + + + | Reason | Comments | + + + | Results, Imaging | | + + + Encounter Details +--------+ + + + + | Date | Type | Department | Care Team | Description | +--------+ + + + + | 12/28/ | Telephone | [facility] | Michele Motta MD | Results, Imaging | | 2019 | | GENERAL SURGERY [address] | [address] [place] | | | | | [address] | [address] [place], [place] | | | | | [place], [place] | [address] | | | | | [address] | | | | | | [phone] | | | +--------+ + + + [...] Not on filedocumented as of this encounter Visit Diagnoses Not on filedocumented in this encounter"
--- OUTSIDE RECORDS SUMMARY | ~2019-02-25 | XMS | Clinical Summary ---
Demographics + + + | Address | [address] | | | [place] [address] | + + + | Home Phone | | + + + | Preferred Language | Unknown | + + + | Marital Status | | + + + | Restorationist Affiliation | 1013 | + + + | Race | Unknown | + + + | Ethnic Group | Unknown | + + + Author + + + | Author | [facility] | | | and [place] | + + + | Organization | [facility] | | | and [...] Team Providers + +------+ + | Care Suction Worker Name | Role | Phone | [...] Overview: Added automatically from request for surgery [id number] | + + + + + | [...] Overview: Added automatically from request for surgery [id number] | + + + + + | [...] N/A: | [place] | | 01/26/ | [id number] | | [id number]: Qty: 1 on | | Bile | SCIENTIFIC | | 2019 | 320 / | | 08/03/2018 by Laurie, | | Duct | [employer] - [employer]SCI | | | /[id number] | | Cholo Vera MD | | [...] +--------+ +---------+--------+ | MEDICARE | [facility] | [id number] | 08/18/19 | [phone] | | Medica | | | AD | | 04-Pre | 5 | | re | | | MEDICA | | sent | | | | | | RE | | | | | | + +--------+ +--------+ +---------+--------+ | MEDICARE | [facility] | [id number] | 08/18/19 | [phone] | | Medica [...] Vishnu | al/Fam | | 8 | [phone] | [place] | | | [place] | | | 0 (Home) | [address] | + +--------+ +--------+ + + | Mason Champion | Person | Self | [birth year] | | [address] | | Vishnu | al/Fam | | [phone] | [phone] | [place] | | | [place] | | | 0 (Home) | [address] | + +--------+ +--------+ + + Advance Directives Patient has advance care planning documents on file. For more information, please contact:[facility] [place] [address]"
--- OUTSIDE RECORDS SUMMARY | ~2019-02-25 | XMS | Encounter Summary ---
Demographics + + + | Address | [address] | | | [place] [address] | + + + | Home Phone | | + + + | Preferred Language | Unknown | + + + | Marital Status | | + + + | Christianity Affiliation | 1013 | + + + | Race | Unknown | + + + | Ethnic Group | Unknown | + + + Author + + + | Author | [facility] | | | and [place] | + + + | Organization | [facility] | | | and [...] Team Providers + +------+ + | Care Concrete Mixer Name | Role | Phone | [...] + + | 12/16/ | Telephone | [facility] | Michele Motta MD | Chest Pain Follow-up | | 2019 | | GENERAL SURGERY [address] | [address] [place] | | | | | [address] | [address] [place], [place] | | | | | [place], [place] | [address] | | | | | [address] | | | | | | [phone] | | | +--------+ + + + [...]
--- OUTSIDE RECORDS SUMMARY | ~2019-02-25 | XMS | Encounter Summary ---
Demographics + + + | Address | [address] | | | [place] [address] | + + + | Home Phone | | + + + | Preferred Language | Unknown | + + + | Marital Status | | + + + | Baptist Affiliation | 1013 | + + + | Race | Unknown | + + + | Ethnic Group | Unknown | + + + Author + + + | Author | [facility] | | | and [place] | + + + | Organization | [facility] | | [...] Team Providers + +------+ + | Care Radar Tester Name | Role | Phone | + [...] + + | 12/21/ | Telephone | [facility] | Michele Motta MD | Follow-up | | 2019 | | GENERAL SURGERY [address] | [address] [place] | (reschedule) | | | | [address] | [address] [place], [place] | | | | | [place], [place] | [address] | | | | | [address] | | | | | | [phone] | | | +--------+ + + + [...]
--- OUTSIDE RECORDS SUMMARY | ~2019-02-25 | XMS | Encounter Summary ---
Demographics + + + | Address | [address] | | | [place] [address] | + + + | Home Phone | | + + + | Preferred Language | Unknown | + + + | Marital Status | | + + + | Congregation Affiliation | 1013 | + + + | Race | Unknown | + + + | Ethnic Group | Unknown | + + + Author + + + | Author | [facility] | | | and [place] | + + + | Organization | [facility] | | | [...] Team Providers + +------+ + | Care Repairer Sash And Door Name | Role | Phone | + [...] + + | 12/21/ | Telephone | [facility] | Michele Motta MD | Follow-up | | 2019 | | GENERAL SURGERY [address] | [address] [place] | (reschedule) | | | | [address] | [address] [place], [place] | | | | | [place], [place] | [address] | | | | | [address] | | | | | | [phone] | | | +--------+ + + + [...]
--- OUTSIDE RECORDS SUMMARY | ~2019-02-25 | XMS | Encounter Summary ---
Demographics + + + | Address | [address] | | | [place] [address] | + + + | Home Phone [...] Team Providers + +------+ + | Care Channel Opener Name | Role | Phone | + [...] + + | 12/16/ | Telephone | [facility] | Michele Motta MD | Chest Pain Follow-up | | 2019 | | GENERAL SURGERY [address] | [address] | | | | | [address] | [address] [place], [place] | | | | | [place] | [address] | | | | | [address] | | | | | | [phone] | | | +--------+ + + + [...]
--- OUTSIDE RECORDS SUMMARY | ~2019-02-25 | XMS | Encounter Summary ---
Demographics + + + | Address | [address] | | | [place] [address] | + + + | Home Phone [...] Team Providers + +------+ + | Care Cost Accounting Analyst Name | Role | Phone | [...] + + | 12/28/ | Telephone | [facility] | Michele Motta MD | Results, Imaging | | 2019 | | GENERAL SURGERY [address] | [address] [place] | | | | | [address] | [address] [place], [place] | | | | | [place], [place] | [address] | | | | | [address] | | | | | | [phone] | | | +--------+ + + + [...]
--- OUTSIDE RECORDS SUMMARY | ~2019-02-25 | XMS | Clinical Summary ---
Demographics + + + | Address | [address] | | | [place] [address] | + + + | Home Phone | | + + + | Preferred Language | Unknown | + + + | Marital Status | | + + + | Lutheran Affiliation | 1013 | + + + | Race | Unknown | + + + | Ethnic Group | Unknown | + + + Author + + + | Author | [facility] (Historical as of | | | 12-03-18) | + + + | Organization | [facility] (Historical as of | | | 12-03-18) [...] Team Providers + +------+ + | Care Plant Machinist Name | Role | Phone | [...] + + + + + | Tiotropium [place] | Shortness of Breath | High | [...] Overview: Added automatically from request for surgery [id number] | + + + + + | [...] Overview: Added automatically from request for surgery [id number] | + + + + + | [...] [address] | | | | | | [place] | | | | | | [address] | | | | | | | [...] N/A: | [place] | | 01/26/ | [id number] | | [id number]: Qty: 1 on | | Bile | SCIENTIFIC | | 2019 | 320 / | | 08/03/2018 by Laurie, | | Duct | [facility]YL[facility] - BSCI | | | /[id number] | | Cholo Vera MD | | [...] +------+-------+ + | MEDICARE | MEDICA | [id number] | | | [address] | | | RE | | | | [place] [address] | | | [place] | | | [...] DEX | al/Fam | | [phone] | [phone] | [place] | | | jeanne | | | [address] | [address] | + +--------+ +--------+ + +"
--- OUTSIDE RECORDS SUMMARY | ~2019-02-25 | XMS | Encounter Summary ---
Demographics + + + | Address | [address] | | | [place] [address] | + + + | Home Phone | | + + + | Preferred Language | Unknown | + + + | Marital Status | | + + + | Yazidism Affiliation | 1013 | + + + [...] + +------+ + | Care Director Of Guidance Name | Role | Phone | + [...] + + | 12/23/ | Office | [facility] | Michele Motta MD | Bloating (Primary | | 2019 | Visit | GENERAL SURGERY [address] | [address] [place] | Dx); Postprandial | | | | [address] | [address] [place], [place] | epigastric pain | | | | [place], [place] | [address] | | | | | [address] | | | | | | [phone] | | | +--------+---------+ + + + [...] + | Blood Pressure | 135/90 | 12/23/20181039 PDT | + + + + | Pulse | 80 | 12/23/20181039 PDT | + + + + | Temperature | 36.7 C (98 F) | 12/23/20181039 PDT | + + + + | Respiratory Rate | - | - | + + + + | Oxygen Saturation | 99% | 12/23/20181039 PDT | + + + + | Inhaled Oxygen | - | - | | Concentration | | | + + + + | Weight | 94.3 kg (208 lb) | 12/23/2018 1040 PDT | + + + + | Height | 182.9 cm (6') | 12/23/2018 1040 PDT | + + + + | Body Mass Index | 28.21 | 12/23/2018 1040 PDT | + + + + documented in this encounter Progress Notes Michele Motta MD - 12/23/2018 1030 PDT Subjective Patient ID: Mason Champion is [...] concern the patient. He denies dysphasia symptoms howeve r has postoperative bloating. He recently felt something [...] sign of hernias. Abdomen is nontender. 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 Recent increase in postprandial epigastric discomfort. Plan Trial of Questran Will obtain upper GI fluoroscopic study today if possible to evaluate status of the wrap in the position of the stomach. Michele Motta MD 12/23/2018 documented in this encounter Plan of Treatment Not on filedocumented as of this encounter Visit Diagnoses + + | Diagnosis | + + | Bloating - Primary Flatulence, eructation, and gas pain | + + | Postprandial epigastric pain Abdominal pain, epigastric | + + documented in this encounter"
--- OUTSIDE RECORDS SUMMARY | ~2019-02-25 | XMS | Encounter Summary ---
Demographics + + + | Address | [address] | | | [place] [address] | + + + | Home Phone [...] Team Providers + +------+ + | Care Document Control Associate Name | Role | Phone | [...] + + | 12/15/ | Telephone | [facility] | Michele Motta MD | Other (message for | | 2019 | | GENERAL SURGERY [address] | [address] | Dr. Motta) | | | | [address] | [address] [place], [place] | | | | | [place], [place] | [address] | | | | | [address] | | | | | | [phone] | | | +--------+ + + + [...]
--- OUTSIDE RECORDS SUMMARY | ~2019-02-25 | XMS | Encounter Summary ---
Demographics + + + | Address | [address] | | | [place] [address] | + + + | Home Phone [...] Team Providers + +------+ + | Care Musician Instrumental Name | Role | Phone | + [...] + + | 12/15/ | Telephone | [facility] | Michele Motta MD | Other (message for | | 2019 | | GENERAL SURGERY [address] | [address] | Dr. Motta) | | | | [address] | [address] [place], [place] | | | | | [place], [place] | [address] | | | | | [address] | | | | | | [phone] | | | +--------+ + + + [...]
--- OUTSIDE RECORDS SUMMARY | ~2019-02-25 | XMS | Encounter Summary ---
Demographics + + + | Address | [address] | | | [place] [address] | + + + | Home Phone [...] Team Providers + +------+ + | Care Hand Turner Name | Role | Phone | + +------+ + | Maria Vieira | PCP | | + +------+ + Encounter Details +--------+ + + + + | Date | Type | Department | Care Team | Description | +--------+ + + + + | 12/23/ | Hospital | [facility] | Michele Motta MD | Bloating; | | 2019 | Encounter | CENTER OPIC XRAY | [address] | Postprandial | | | | [address] | [address] [place], [place] | epigastric pain | | | | [address] [place], [place] | [address] | | | | | [address] | | | | | | [phone] | [facility] | | [...]
--- OUTSIDE RECORDS SUMMARY | ~2019-02-25 | XMS | Encounter Summary ---
Demographics + + + | Address | [address] | | | [place] [address] | + + + | Home Phone [...] Team Providers + +------+ + | Care Flower Cheniller Name | Role | Phone | + [...] + + | 12/23/ | Office | [facility] | Michele Motta MD | Bloating (Primary | | 2019 | Visit | GENERAL SURGERY [address] | [address] [place] | Dx); Postprandial | | | | [address] | [address] [place], [place] | epigastric pain | | | | [place], [place] | [address] | | | | | [address] | | | | | | [phone] | | | +--------+---------+ + + + [...] sign of hernias. Abdomen is nontender. 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 [...]
--- OUTSIDE RECORDS SUMMARY | ~2019-02-25 | XMS | Clinical Summary ---
Demographics + + + | Address | [address] | | | [place] [address] | + + + | Home Phone | | + + + | Preferred Language | Unknown | + + + | Marital Status | | + + + | Christian Affiliation | 1013 | + + + | Race | Unknown | + + + | Ethnic Group | Unknown | + + + Author + + + | Author | [facility] (Historical as of | | | 12-03-18) | + + + | Organization | [facility] (Historical as of | | | 12-03-18) [...] Team Providers + +------+ + | Care Nursing Center Tutor Name | Role | Phone | + [...] + + + + + | Tiotropium [place] | Shortness of Breath | High | [...] Overview: Added automatically from request for surgery [id number] | + + + + + | [...] Overview: Added automatically from request for surgery [id number] | + + + + + | [...] [place] | | | | | | [address] | | | | | | | [...] N/A: | [facility] | | 01/26/ | [id number] | | [id number]: Qty: 1 on | | Bile | SCIENTIFIC | | 2019 | 320 / | | 08/03/2018 by Laurie, | | Duct | [facility] - [employer]SCI | | | /[id number] | | Cholo Vera MD | | [...] +------+-------+ + | MEDICARE | MEDICA | [id number] | | | [address] | | | RE | | | | [place] [address] | | | [place] | | | [...] DEX | al/Fam | | [phone] | [phone] | [place] | | | jeanne | | | [address] | [address] | + +--------+ +--------+ + +"
[~2019-02-25 22:07] MED LIST changes: +LISINOPRIL5 MG PO; +OMEPRAZOLE20 MG PO; +SYMBICORT 16010.2 GM INH
--- NOTE | 2019-02-26 02:43 | NUR ---
INITIAL PATIENT ASSESSMENT COMPLETED. PT IS SHIVERING, COMPLAINS OF BEING COLD. WHILE RESTING WITH EYES CLOSED, O2 SATURATIONS DROPPED TO 86 PERCENT. PT PLACED ON 2 L NC AT THIS TIME. DISCUSSED PLAN OF CARE, PT VERBALIZED AN UNDERSTANDING. IV FLUIDS INFUSING, CALL LIGHT WITHIN REACH. NO FURTHER NEEDS AT THIS TIME.
--- NOTE | 2019-02-26 06:19 | NUR ---
PT HAS VISITOR IN ROOM AT THIS TIME. DENIES ANY PAIN OR NAUSEA. PROVIDED PT EDUCATION ABOUT DISEASE PROCESS AND PLAN OF CARE. ALL QUESTIONS ANSWERED. CALL LIGHT WITHIN REACH. NO FURTHER NEEDS AT THIS TIME.
--- NOTE | 2019-02-26 07:30 | NUR ---
REPORT RECIEVED. PATIENT IS SITTING UP AT BEDSIDE, STATES HE FEELS BETTER. TALKED WITH PATIENT ABOUT PLAN OF CARE FOR DAY. IS UNDERSTANDING. BREAKFAST ORDERED.
--- NOTE | 2019-02-26 09:15 | NUR ---
TOOK BREAKFAST FAIR. DENIES NAUSEA. DR. OG HERE TO SEE PATIENT. PATINET BEGINNING TO CHILL. DENIES INCREASED PAIN.
--- NOTE | 2019-02-26 09:30 | NUR ---
DENIES NEED TO VOID. FRIENDS/FAMILY.
--- NOTE | 2019-02-26 09:33 | NUR ---
tylenol 650 mg po given for temp 99.6. IS CHILLING. HR-92.
--- NOTE | 2019-02-26 10:18 | NUR ---
SLEEPING. FRIEND IS AT BEDSIDE.
--- NOTE | 2019-02-26 12:15 | NUR ---
C/O INCREASED LOWER ABD PAIN. RATES PAIN 4/10, DILAUDID 0.5 MG IV GIVEN. FRIEND REMAINS IN ROOM.
--- NOTE | 2019-02-26 12:45 | NUR ---
TOOK APPROX 50% OF LUNCH.
--- NOTE | 2019-02-26 14:00 | NUR ---
NAPPING. NO DISTRESS NOTED.
--- NOTE | 2019-02-26 16:00 | NUR ---
TYLENOL 650 MG PO GIVEN PATIENT IS CHILLING. TEMP-99 AT THIS TIME.
--- NOTE | 2019-02-26 16:00 | NUR ---
ASSSSMENT DONE. LUNG DIM IN BASES.
--- NOTE | 2019-02-26 17:35 | NUR ---
DILAUDID 1 MG IV GIVEN FOR PAIN IN BACK/LOWER ABD/MALAGON RATES 08/26.
--- NOTE | 2019-02-26 18:30 | NUR ---
O2 AT 2L APPLIED O2 SAT WHILE ASLEEP 84.
--- NOTE | 2019-02-26 19:28 | NUR ---
REPORT RECIEVED FROM CCU RN. CARE ASSUMED AT THIS TIME.
--- NOTE | 2019-02-26 19:40 | NUR ---
TO ASSESS PATIENT AT THIS TIME. DENIES PAIN OR NAUSEA AT THIS TIME. IV FLUIDS AND ABX INFUSING AT THIS TIME. PLAN OF CARE FOR EVENING DISCUSSED. ALL QUESTIONS ANSWERED AT THIS TIME. CALL LIGHT WITHIN REACH. NO FURTHER NEEDS AT THIS TIME.
--- NOTE | 2019-02-26 22:17 | NUR ---
RESPONDED TO PATIENT CALL LIGHT, REQUESTING A SNACK AT THIS TIME. DENIES ANY OTHER NEEDS. CALL LIGHT WITHIN REACH.
--- NOTE | 2019-02-27 00:32 | NUR ---
IN ROOM FOR ASSESSMENT. PT DENIES PAIN OR DISCOMFORT AT THIS TIME. GIVEN WARM BLANKETS. NO CHANGES IN ASSESSMENT AT THIS TIME. CALL LIGHT WITHIN REACH. NO FURTHER REQUESTS AT THIS TIME.
--- NOTE | 2019-02-27 01:32 | NUR ---
0113 - PT TRANSFERRED TO ROOM 108 FROM ICU VIA BED, PT WALKED TO HIS NEW BED W/O PROBLEMS, NEB GIVEN, TEMP 99.1 PT HAS 6 WARM BLANKETS ON. TELE WILL BE PLACED PER NEW ORDERS, PT ALERT AND ORIENTED, COOPERATIVE, FOLLOWS INSTRUCTIONS WELL. REPOSITIONS SELF IN BED. NO C/O PAIN AT THIS TIME, ORIENTED TO NEW ROOM .
--- NOTE | 2019-02-27 03:12 | NUR ---
IV ALARMING, RESOLVED. PT REQUESTED PUDDING. RECEIVED. USED URINAL, EMPTIED AND PLACED WITHIN REACH. NO OTHER NEEDS.
--- NOTE | 2019-02-27 04:01 | NUR ---
resting, eyes closed, IVF infusing w/o problems, call light and fluids at bedside
--- NOTE | 2019-02-27 05:06 | NUR ---
Pt has had a temp of 99.4, 6 bedcovers removed and room temp decreased from 76 to 71. IS at bedside did 5x repeat demonstration, No c/o pain. tolerating fluids well, using urinal and voiding QS. tele#[address], Afib rhythm as per tele reading, denies ches t pain. Tolerating large amounts of fluids. Repositions self in bed, call light at bedside
--- NOTE | 2019-02-27 06:27 | NUR ---
temp 99.9, used IS to the top and appropriately, 5x, IVF infusing. Room temp 71 degrees, covered only with regular bedding. C/o being cold, situation explained, not very helpful, procedure explained again, semi receptive. Medicated with Dilaudid 1mg per c/o back, h/a Tolerating fluids well, tele#[address] on afib rhythm
--- NOTE | 2019-02-27 07:00 | NUR ---
WENT IN TO ROOM TO RECHECKED TEMP. PATIENT IS DANGLING BY THE BED. PATIENT USED THE URINAL AND THIS TOWEL FOLDER EMPTIED IT. PRIMARY RN NOTIFIED.
--- NOTE | 2019-02-27 07:59 | NUR ---
PATIENT RESTING IN BED, EYES CLOSED, LIGHTS OFF. PATIENT AWAKES BREIFLY WHEN TALKED TO BUT REQUESTS TO SLEEP LONGER. AM CARE SET UP ON BEDSIDE TABLE FOR PATIENT TO USE AT A LATER TIME PER PATIENT REQUEST. PATIENT CALL LIGHT IN REACH, NO OTHER NEEDS AT THIS TIME.
--- NOTE | 2019-02-27 07:59 | NUR ---
PT SITTING UP ON EDGE OF BED REPORT RECEIVED. PT DENIES DISCOMFORT OR NEEDS AT THIS TIME. CALL LIGHT IS IN REACH.
[2019-02-27] MEDS ORDERED: COUMADIN4 MG PO (08:24)
--- NOTE | 2019-02-27 09:31 | NUR ---
PT REFUSES MOVE TO RECLINER CONTINUES TO SIT ON BED, THEN LAYS DOWN FOR A TIME AND THEN SITS BACK UP. EATS A SMALL AMOUNT OF BREAKFAST STATES HE IS FULL. PT STATES HE FEELS BETTER THAN HE HAS PREVIOUSLY, AT THIS TIME, "NO MORE CHILLS"
--- NOTE | 2019-02-27 10:16 | NUR ---
dr aburto in to see pt he reports likely dc tomorrow
--- NOTE | 2019-02-27 10:26 | NUR ---
PATIENT STATES HE WOULD LIKE TO SHOWER LATER TODAY. PHARMACY IN ROOM TO TALK WITH PATIENT. CALL LIGHT IN REACH. NO OTHER NEEDS AT THIS TIME.
[2019-02-27] MEDS ORDERED: PROBIOTIC1 EAC1 PO (11:00)
--- NOTE | 2019-02-27 11:01 | NUR ---
MED REC COMPLETE
--- NOTE | 2019-02-27 11:10 | NUR ---
PT BACK FROM SHOWER IV RE-CONNECTED. SHOWER WELL TOLERATED PT STATES HE FEELS PRETTY GOOD. ITEMS PROVIDED FOR CYRUS
--- NOTE | 2019-02-27 11:50 | NUR ---
SPOKE WITH PATIENT IN ROOM. STATES HE LIVES ALONE, HAS FAMILY AND FRIENDS IN ARE[place] WHO WILL HELP HIM GET HOME AND ARE PLANNING ON HELPING HIM WITH MEALS FOR A FEW DAYS. HE IS RETIRED, BUT ACTIVE AND VOLUNTEERS WEEKLY. STILL DRIVES. NO KNOWN BARRIERS TO SAFELY DISCHARGING HOME AT THIS TIME. WILL CONTINUE TO FOLLOW.
--- NOTE | 2019-02-27 14:06 | NUR ---
PT LAYING IN BED ON R SIDE. GREETED PT, COULD TELL HE WAS WANTING TO REST. PT REQUESTED PRAYER AND WILL FOLLOW NEEDED
--- NOTE | 2019-02-27 14:39 | NUR ---
PT RESTING EYES CLOSED APPEARS COMFORTABLE
--- NOTE | 2019-02-27 16:59 | NUR ---
PT UP IN ROOM ADLIB STEADY ON HIS FEET. RETURNS TO BED TO REST EYES CLOSED
--- NOTE | 2019-02-27 17:06 | NUR ---
PATIENT RESTING IN BED, CALL LIGHT IN REACH. PATIENT STATES HE DOES NOT FEEL BETTER TODAY. RN NOTIFIED OF ELEVATED BP AND TEMP. NO OTHER NEEDS AT THIS TIME.
--- NOTE | 2019-02-27 19:28 | NUR ---
SHIFT REPORT RECIEVED FROM JG DAMICO. PT VISITING WITH GUESTS IN RR. CALL LIGHT IN REACH.
--- NOTE | 2019-02-27 20:52 | NUR ---
PT RESTING IN BED. ASSESSMENT COMPLETED. PT DENIES PAIN. IV FLUIDS INFUSING PER ORDER. ICE WATER PROVIDED. NO NEEDS AT THIS TIME. CALL LIGHT IN REACH.
--- NOTE | 2019-02-28 00:24 | NUR ---
PT RESTING IN BED, EYES CLOSED. SCHEDULED IV MED PROVIDED. CALL LIGHT IN REACH.
--- NOTE | 2019-02-28 03:24 | NUR ---
PT UP TO USE URINAL. ASSESSMENT COMPLETED. PT DENIES PAIN. NO OTHER NEEDS. CALL LIGHT IN REACH.
--- NOTE | 2019-02-28 04:00 | NUR ---
PT IV PUMP ALARMING. ALARM RESOLVED. NO OTHER NEEDS. CALL LIGHT IN REACH.
--- NOTE | 2019-02-28 04:52 | NUR ---
PT HAS SLEPT MOST THE SHIFT. PT DENIES PAIN. VSS. A&O X4. IV CDI, WNL, FLUSHED WELL. IV FLUIDS AND MEDS TOLERATED WELL.
--- NOTE | 2019-02-28 05:30 | NUR ---
PT STATES HE HAS 4/10 HEADACHE. PRN PAIN MED PROVIDED. NO OTHER NEEDS. CALL LIGHT IN REACH.
--- NOTE | 2019-02-28 08:10 | NUR ---
PT WALKED THE HALLWAY SEVERAL TIMES THIS AM; TOLERATED WELL. PT REPORTS HE IS FEELING VERY WELL THIS AM AND WANTS TO DISCHARGE HOME SOON POSSIBLE. PT HAS NO NEEDS AT THIS TIME. PERSONAL SUPPLIES AND CALL LIGHT WITHIN REACH.
[2019-02-28] MEDS ORDERED: CEPHALEXIN500 MG PO (08:23)
--- NOTE | 2019-02-28 10:57 | NUR ---
In and spoke with Mason. He is wanting to go home. Lives along, but friends and family will check in on him. 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 Denies needs for DME to go home.
--- NOTE | 2019-02-28 12:22 | NUR ---
VISITED WITH PT HE WALKED IN HALLWAY. LOOKS LIKE HE FEELS SO MUCH BETTER, AND ADAMANT ABOUT LEAVING TODAY! CHEERFUL AND FRIENDLY AND SEEMS VERY STABLE ON HIS FEET. EXTENDED A BLESSING, WILL FOLLOW NEEDED
== END 2019-02-28 12:20 | disposition home or self-care (01) | DRG 872 ==
LOC: ED 22:07 → MS 02-26 01:45 → CCU 02-26 01:45 → MS 02-27 01:05
PROVIDERS: ADMIT Internal Medicine
DX: A41.51 Sepsis due to Escherichia coli [E. coli] (principal); I48.20 Chronic atrial fibrillation, unspecified; R65.20 Severe sepsis without septic shock; R10.9 Unspecified abdominal pain; G89.29 Other chronic pain; K52.9 Noninfective gastroenteritis and colitis, unspecified; J45.909 Unspecified asthma, uncomplicated; K86.89 Other specified diseases of pancreas; Z87.891 Personal history of nicotine dependence; Z90.2 Acquired absence of lung [part of]; Z79.01 Long term (current) use of anticoagulants; Z79.51 Long term (current) use of inhaled steroids; Z79.899 Other long term (current) drug therapy
CPT/HCPCS: 36415; 51798; 74176; 80048; 80053; 81001; 83605; 83690; 83735; 84100; 85025; 85610; 87077; 87088; 87186; 87502; 94640; 96361; 99284-25; J0692; J1170; J2405; J2550; J7030; J7060

== ENCOUNTER 2019-07-24 13:18 | Inpatient (IN) | payer MEDICARE, OTHER ==
[~2019-07-24] VITALS: Ht 198.1 cm; Wt 83.0 kg
[~2019-07-24 13:18] MED LIST changes: +CEPHALEXIN500 MG PO; +PROBIOTIC1 EAC1 PO
--- OUTSIDE RECORDS SUMMARY | 2019-07-24 13:20 | XMS ---
PreManage Notification: CATY VALLEJO Security Inside Sales Coordinator Events No recent Security Events currently on file CRITERIA MET - History of Sepsis Dx CARE PROVIDERS ANNA JOHNS Physician Fitness Plan Coordinator 08/02/2018-Current PHONE: [phone] Pasquale has no Care Guidelines for this patient. [facility]12 MO.) [facility] TOTAL 4 NOTE: Visits indicate total known visits. ED/C VISIT TRACKING (12 MO.) 07/24/2019 13:19 DAYNE Tyler TYPE: Emergency COMPLAINT: - SOB 02/25/2019 22:08 DAYNE Tyler TYPE: Emergency COMPLAINT: - URINE PROBLEM/ABD PAIN [facility]02[facility]2018 04[facility]07 [facility] TYPE: Emergency DIAGNOSES: - Unspecified abdominal pain - Abdominal Pain 08/01/2018 21:57 [facility] [place] TYPE: Emergency COMPLAINT: - ABD PAIN DIAGNOSES: - Unspecified asthma, uncomplicated - Unspecified atrial fibrillation - Left upper quadrant pain - Other half-way (current) drug therapy - Upper abdominal pain, unspecified - halfway (current) use of anticoagulants - Other acute postprocedural pain INPATIENT VISIT TRACKING (12 MO.) 02/26/2019 01:45 [facility] [place] TYPE: Medical Surgical COMPLAINT: - SEPSIS,UTI DIAGNOSES: - Other termite exterminator helper (current) drug therapy - Other chronic pain - Chronic atrial fibrillation, unspecified - Severe sepsis without septic shock - Other termite exterminator helper (current) drug therapy - Other specified diseases of pancreas - halfway (current) use of anticoagulants - Acquired absence of lung [part of] - Sepsis due to Escherichia coli [E. coli] - terminal computer operator (current) use of inhaled steroids - Noninfective gastroenteritis and colitis, unspecified - Unspecified asthma, uncomplicated - terminal computer operator (current) use of inhaled steroids - Personal history of nicotine dependence - Personal history of nicotine dependence - Sepsis due to Escherichia coli [E. coli] - terminal computer operator (current) use of anticoagulants - Other chronic pain - Sepsis, unspecified organism - Severe sepsis without septic shock - Acquired absence of lung [part of] - Chronic atrial fibrillation, unspecified - Unspecified abdominal pain - Noninfective gastroenteritis and colitis, unspecified - Unspecified asthma, uncomplicated - Other specified diseases of pancreas - Unspecified abdominal pain 08/02/2018 04:07 [facility] Romel JONAS TYPE: Recovery DIAGNOSES: - Unspecified abdominal pain 07/29/2018 10:17 [facility] TYPE: Recovery DIAGNOSES: - Diaphragmatic hernia without obstruction or gangrene - Paraesophageal hernia - Gastro-esophageal reflux disease without esophagitis [email or web address]
--- NOTE | 2019-07-24 17:34 | NUR ---
arrived to room 129 at 1735 via stretcher with MOOKIE Gonzalez bakery supervisor. alert and oriented. awake. in good spirits. no SOB.
--- NOTE | 2019-07-24 17:43 | NUR ---
BP ELEVATED. PATIENT STATES HE FEELS MUCH BETTER THAN EARLIER IN THE DAY. NOT SHORT OF BREATH NOW. DR OG GETTING H&P. SITTING UP/DANGLING AT EDGE OF BED NOW. PANTS, SHOES, BELT, KEYS, AND OTHER BELONGINGS ON COUCH. DENIES ANY SKIN ISSUES.
--- NOTE | 2019-07-24 18:31 | NUR ---
WHILE ADMITTING PATIENT TO ROOM THE PATIENT WAS ON ROOM AIR SATURATION 100%. SUDDENLY HAD RESPIRATORY DISTRESS. DESATURATED TO 80%. STARTED ON 10L NONREBREATHER. SATS DID NOT IMPROVE. MD NOTIFIED IMMEDIATELY AND RAPID RESPONSE CALLED. BIPAP STARTED BY RT.
--- NOTE | 2019-07-24 19:39 | NUR ---
PT REPORT RECIEVED FROM CCU RN, CARE OF PATIENT ASSUMED AT THIS TIME. IN ROOM WITH PATIENT AND DR OG. PT ALERT BUT COMPLETELY DISORIENTED, PULLING AT LINES, UNABLE TO RESPOND TO QUESTIONS APPROPRIATELY. OXYGEN SATURATIONS AT 96 PERCENT ON 5 L NC. HANDS MOTTLED, FEET PALE AND COOL. PULSES WEAK BUT PALPABLE. PT IN AFIB AT THIS TIME, RATE CONTROLLED. DISCUSSED PLAN OF CARE WITH DR OG AND PT SON, PLAN TO TAKE PT TO CT TO R/U PE AT THIS TIME.
--- NOTE | 2019-07-24 19:45 | NUR ---
FLOAT SECURITY POLICE OFFICER PROVIDING ONE TO ONE SUPERVISION WHILE PT IS DISORIENTED.
--- NOTE | 2019-07-24 21:00 | NUR ---
PT TO CT VIA STRETCHER WITH THIS RN, FLOAT CLEAN ROOM TECHNICIAN. PT WEARING MASK AND STAFF WEARING APPROPRIATE PPE. PT ABLE TO FOLLOW COMMANDS WHEN MOVING FROM STRETCHER TO CT TABLE. TOLERATED CT WELL. BACK IN ROOM AT THIS TIME. CLEAN ROOM TECHNICIAN REMAINS AT BEDSIDE.
--- NOTE | 2019-07-24 22:57 | NUR ---
PT REMAINS ON ONE TO ONE SUPERVISION FOR CONFUSION. ALERT BUT REMAINS ORIENTED TO TIME DATE PLACE AND SITUATION. PT DOSES OFF AND THE JERKS BACK AWAKE. FREQUENT REORIENTATION NEEDED.
--- NOTE | 2019-07-24 23:00 | EKG ---
[facility] [address] [facility] [address] [place] [address] Signed Atrial fibrillation Right bundle branch block Abnormal ECG When compared with ECG of 01-AUG-2018 22:07, Nonspecific T wave abnormality, worse in Inferior leads Inverted T waves have replaced nonspecific T wave abnormality in Anterior leads QT has lengthened Confirmed by CASSIDY OG MD ([id number]) on 07/24/2019 11:00:13 PM Electronically Signed By: CASSIDY OG MD 07/24/19 2300 PATIENT NAME: YONICATY DEX Electrocardiogram DATE OF : 59 PHYSICIAN: CASSIDY OG MD REPORT #: [id number] REPORT IS CONFIDENTIAL AND NOT TO BE RELEASED WITHOUT AUTHORIZATION
--- NOTE | 2019-07-24 23:05 | NUR ---
PT SPO2 AT 100 PERCENT ON 5 L NC, OXYGEN TITRATED DOWN TO 3L AT THIS TIME.
--- NOTE | 2019-07-24 23:29 | NUR ---
PT BECOMING MORE ALERT AND ORIENTED. ABLE TO REMEMBER WHERE HE IS AT. CALLED SON AND HAD CONVERSATION WITH HIM ON THE PHONE. CONTINUES TO BE ON ONE TO ONE AT THIS TIME. WILL CONTINUE TO MONITOR.
--- NOTE | 2019-07-25 00:22 | NUR ---
INFORMED BY ELTON BUSBY FOR I'S AND O'S.
--- NOTE | 2019-07-25 00:30 | NUR ---
PT STOOD TO VOID, ONE PERSON ASSIST REQUIRED.
--- NOTE | 2019-07-25 01:00 | NUR ---
PATIENT AWAKE IN ROOM WATCHING TELEVISION. FLOAT FRAMING SPECIALIST AT BEDSIDE. PT IMPULSIVE BUT EASILY REDIRECTABLE. BED ALARM ON, NO NEEDS AT THIS TIME.
--- NOTE | 2019-07-25 03:32 | NUR ---
RN IN TO SIT WITH PATIENT. PT PULLED O2 OFF, 98 PERCENT ON ROOM AIR. PT GIVEN SNACK AT THIS TIME. PT MORE ORIENTED AT THIS TIME. BED ALARM ON, VISIBLE FROM NURSES STATION, CALL LIGHT WITHIN REACH. NO FURTHER NEEDS AT THIS TIME.
--- NOTE | 2019-07-25 04:57 | NUR ---
Temp and I's/O's inserted for 04:45 were obtained from ELTON Perry.
--- NOTE | 2019-07-25 07:30 | NUR ---
REPORT RECIEVED. PATIENT IS AWAKE LAYING IN BED. NO DISTRESS NOTED.
--- NOTE | 2019-07-25 08:00 | NUR ---
DR. OG HERE TO SEE KUN. NO FUTHER ORDERS RECIEVED AT THIS TIME.
--- NOTE | 2019-07-25 09:00 | NUR ---
TOOK BREAKFAST WELL. STATES HE FEELS SLIGHTLY SOB, BUT NOT BAD. ON RA. SATS MID TO HIGH 90'S.
[2019-07-25] MEDS ORDERED: DICYCLOMINE HCL20 MG PO (10:57)
[2019-07-25] MEDS ORDERED: OMEPRAZOLE20 MG PO (10:58)
--- NOTE | 2019-07-25 10:59 | NUR ---
MED REC COMPLETE
--- NOTE | 2019-07-25 10:59 | NUR ---
RESTING IN BED. NO DISTRESS NOTED.
--- NOTE | 2019-07-25 11:06 | NUR ---
TALKING ON PHONE. NO C/O.
--- NOTE | 2019-07-25 12:00 | NUR ---
ASSESSMENT DONE. LUNGS DIMINISHED THROUGHOUT. CONTINUES TO BE MILDLY SHORT OF BREATH. NO COUGH NOTED THUS FAR TODAY.
--- NOTE | 2019-07-25 12:34 | NUR ---
PT ON ISOLATION PRECAUTIONS, UNABLE TO VISIT IN PERSON. MOOKIE HERRING CALLED PT HE STATED HE WOULD LIKE TO VISIT WITH ME OVER THE PHONE. PHONED PT, HAD POSITIVE TIME ON PHONE-WITH APPARENT LIMITATIONS. PT REQUESTED PRAYER AND THAT I CALL HIS CLIPPER AUTOMATIC AND GIVE HIM AN UPDATE ON HIS CONDITION. PT STATED HE HAS BEEN IN CONVERSATION BRIEFLY WITH HIM BY TEXT. WILL LEAVE G.POST FOR RN TO GIVE PT
--- NOTE | 2019-07-25 16:37 | NUR ---
Called and spoke with pt by phone due to pending meier testing. Pt states he lives in [place] in a single level home. No issues to get in and out of the house. Denies use of any DME. He is retired since 2001 from from [employer]. 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 Has two children and they are supportive and will help. Discussed if he is + for covid may need to self isolate for a time when discharged. Pt states his family will assist him. Pt wants to dc to home when cleared for dc. Denies financial issues.
--- NOTE | 2019-07-25 18:00 | NUR ---
TOOK DINNER WELL. C/O FEELING COLD. TEMP 97.7. 2 WARM BLANKETS GIVEN, ALREADY HAS SEVERAL EXTRA BLANKETS ON. DENIES PAIN.
--- NOTE | 2019-07-25 19:02 | NUR ---
RESTFUL. NO DISTRESS NOTED AT THIS TIME. REPORT TO NEXT SHIFT.
--- NOTE | 2019-07-25 19:36 | NUR ---
SHIFT REPORT RECIEVED FROM CCU RN, CARE OF PATIENT ASSUMED AT THIS TIME.
--- NOTE | 2019-07-25 20:18 | NUR ---
IN ROOM TO ASSESS PATIENT. DENIES FEELING COLD, SHORTNESS OF BREATH, OR PAIN. STOOD TO VOID AT BEDSIDE. STEADY ON FEET. STAND BY ASSIST ONLY REQUIRED. HEART RATE, O2 SATS, AND RR REMAIN WNL WITH EXERTION. ASSESSMENT COMPLETED. PLAN OF CARE FOR EVENING DISCUSSED. DENIES ANY FURTHER NEEDS AT THIS TIME.
--- NOTE | 2019-07-25 21:50 | NUR ---
PT UP TO BATHROOM WITH SPINNING FRAME CLEANER. ABLE TO AMBULATE WITH STAND BY ASSIST ONLY. PT HAD SOFT BM, VOIDED. BACK IN BED, CALL LIGHT WITHIN REACH. NO FURTHER NEEDS AT THIS TIME.
--- NOTE | 2019-07-25 22:30 | NUR ---
PT RESTING WITH EYES CLOSED, BREATHING EVEN AND UNLABORED. CALL LIGHT WITHIN REACH, VISIBLE FROM NURSING STATION.
--- NOTE | 2019-07-25 23:44 | NUR ---
IN ROOM FOR ASSESSMENT, PT AWOKE DURING ASSESMENT BUT FELL BACK ASLEEP BEFORE ASSEMENT COMPLETED. IV FLUIDS CONTINUE TO INFUSE. SPO2 AT 97 PERCENT ON ROOM AIR. PT RR EVEN AND UNLABORED AT 16/ MIN.
--- NOTE | 2019-07-26 02:30 | NUR ---
PT STANDING TO VOID. STABLE ON FEET. CALL LIGHT WITHIN RECH. NO FURTHER NEEDS AT THIS TIME.
--- NOTE | 2019-07-26 05:00 | NUR ---
in to draw labs and assessment. pt stood at bedside to void. denies shortness of breath or discomfort at this time. given fresh water. call light within reach. no further needs at this time.
--- NOTE | 2019-07-26 07:30 | NUR ---
REPORT RECIEVED. BREAKFAST ORDERED.
--- NOTE | 2019-07-26 08:00 | NUR ---
ASSESSMENT DONE. TALKED WITH PATIENT ABOUT POC FOR DAY. IS UNDERSTANDING. STATES HE IS FEELING BETTER TODAY. IVF PATENT.
--- NOTE | 2019-07-26 09:00 | NUR ---
TOOK BREAKFAST WELL. IS W/O C/O.
--- NOTE | 2019-07-26 11:00 | NUR ---
Knocked on pt's window and waved. Asked if it's ok to call him now. He nods his head yes. States he is doing ok. Feeling better today. Will follow up tomorrow with a phone call as pt remains in isolation.
--- NOTE | 2019-07-26 11:20 | NUR ---
RESTING AT THIS TIME. NO DISTRESS NOTED.
--- NOTE | 2019-07-26 12:10 | NUR ---
ASSESSMENT DONE. KAROL PARRISH. IVF DC'D EARLIER. PATIENT IS IN GOOD SPIRITS. SITTING UP AT BEDSIDE TO EAT LUNCH.
--- NOTE | 2019-07-26 12:25 | NUR ---
CALLED PT ON HIS CELLPHONE-STILL UNDER PRECAUTIONS. HAD POSITIVE VISIT, PT SAID HE WAS FEELING MUCH BETTER THIS AM. SLEPT WELL ALL NIGHT. THANKED ME FOR VISITING. WILL FOLLOW UP
--- NOTE | 2019-07-26 12:56 | NUR ---
TOOK LUNCH WELL.
--- NOTE | 2019-07-26 14:00 | NUR ---
WATCHING TV. NO DISTRESS NOTED.
--- NOTE | 2019-07-26 17:44 | NUR ---
SITTING AT BEDSIDE TO EAT DINNER. DENEIS PROBLEMS, STATES HE HAD MILD EPISODE OF SHORTNESS OF BREATH EARLIER THAT LASTED APPROX 10 MIN. DENIES SHORTNESS OF BREATH AT THIS TIME. COUMADIN GIVEN.
--- NOTE | 2019-07-26 18:00 | NUR ---
TOOK DINNER WELL. DENIES SHORTNESS OF BREATH.
--- NOTE | 2019-07-26 18:30 | NUR ---
TRANSFER ORDRS TO MED-SURG RECIEVED. TELE UNIT APPLIED.
--- NOTE | 2019-07-26 18:50 | NUR ---
TO MED-SURG VIA BED. BEDSIDE REPORT GIVEN.
--- NOTE | 2019-07-26 19:45 | NUR ---
TELE LEAD OFF. IN TO FIX LEAD. ASSESSMENT DONE. pt DENIED PAIN AND SOB AT THIS TIME. UPDATED ON PLAN OF CARE. pt AGREEABLE. VITALS DONE. NO REQUESTS AT THIS TIME. WATER AND JUICE AT BEDSIDE. CALL LIGHT WITHIN REACH.
--- NOTE | 2019-07-26 21:39 | NUR ---
ROUNDED pt. SITTING IN BED JUST USED URINAL. NO REQUESTS AT THIS TIME. CALL LIGHT WITHIN REACH.
--- NOTE | 2019-07-26 23:28 | NUR ---
IN ROOM TO FIX CPOX. pt RESTING WITH EYES CLOSED, RESPIRATIONS REGULAR. O2 SAT 93% AT THIS TIME. CALL LIGHT WITHIN REACH.
--- NOTE | 2019-07-27 00:34 | NUR ---
CALL LIGHT ON. pt REPORTED HIS URINAL WAS FULL. EMPTIED. pt DENIES PAIN AND SOB. LUNG SOUNDS UNCHANGED. NO FURTHER REQUESTS AT THIS TIME. CALL LIGHT WITHIN REACH.
--- NOTE | 2019-07-27 02:32 | NUR ---
ROUNDED ON pt. RESTING IN BED WITH EYES CLOSED, RESPIRATIONS REGULAR, O2 SAT 96% ON ROOM AIR. CALL LIGHT WITHIN REACH.
--- NOTE | 2019-07-27 04:27 | NUR ---
pt RESTING IN BED. O2 SAT 96%. CALL LIGHT WITHIN REACH.
--- NOTE | 2019-07-27 05:50 | NUR ---
CALL LIGHT ON. pt UP TO VOID AND BRUSH TEETH. ASSESSMENT DONE. DENIES PAIN AND SOB, SAT 96%. URINAL EMPTIED. FRESH WATER PROVIDED. NO FURTHER REQUESTS AT THIS TIME. CALL LIGHT WITHIN REACH.
--- NOTE | 2019-07-27 07:56 | NUR ---
SHIFT REPORT RECEIVED AT NURSE'S STATION. REPORT GIVEN BY EUGENE DAMICO. ALL QUESTIONS ANSWERED. PATIENT ON ROOM AIR. ISOLATION SIGNS PLACED ON DOOR. 0745: BREAKFAST DELIVERED TO PATIENT. REPORTS HE HAS NO SHORTNESS OF BREATH. ATTEMPTING TO FISH TECHNOLOGIST O2 MONITOR WITH TELEMETRY TO SHOW UP ON COMPUTER SCREEN AT NURSE'S STATION. UNSUCCESSFUL SO FAR. INDEPENDENT IN ROOM. DANGLING AT EDGE OF BED EATING BREAKFAST NOW.
--- NOTE | 2019-07-27 09:50 | NUR ---
DR OG IN ROOM TO ROUND ON PT.
--- NOTE | 2019-07-27 11:39 | NUR ---
CONNECTED WITH PT ON PHONE DUE TO PRECAUTIONS. HE SAID HE FEELS MUCH BETTER, HAS BEEN TALKING WITH LOVED ONES AND IS HOPING FOR DC TODAY AWAITING TEST RESULTS. HAD PRAYER WITH PT
--- NOTE | 2019-07-27 11:41 | NUR ---
NEGATIVE RESULTS FOR COVID 19 TEST RECEIVED FROM RN MEDICAL COLLECTIONS SPECIALIST. HOSPITALIST NOTIFIED. ORDER FOR DISCHARGE PENDING. ORDER TO DISCONTINUE ISOLATION PERCAUTIONS AND TO NOTIFY PATIENT VERBALLY. IV BEING DISCONTINUED AND TELEMETRY REMOVED.
--- NOTE | 2019-07-27 12:16 | NUR ---
DISCHARGE ISTRUCTIONS PROVIEDED. NO QUESTIONS. PHARMACY IN TO DISCUSS MEDICATIONS. VITALS TAKEN AND STABLE. IV DC'D AND WNL. PT AMBUALTORY.
--- NOTE | 2019-07-27 12:49 | NUR ---
Attempted to call to follow up with Akira. His phone is busy.
== END 2019-07-27 12:12 | disposition home or self-care (01) | DRG 189 ==
LOC: ED 13:18 → CCU 16:54 → MS 07-26 18:50
PROVIDERS: ADMIT Internal Medicine
PROC: 5A09357 Assistance with Respiratory Ventilation, Less than 24 Consecutive Hours, Continuous Positive Airway Pressure (ICD-10-PCS; principal; 2019-07-24)
DX: J96.01 Acute respiratory failure with hypoxia (principal); I48.20 Chronic atrial fibrillation, unspecified; J45.909 Unspecified asthma, uncomplicated; Z79.01 Long term (current) use of anticoagulants; Z66 Do not resuscitate; Z87.891 Personal history of nicotine dependence; Z88.8 Allergy status to other drugs, medicaments and biological substances; Z79.899 Other long term (current) drug therapy; Z79.51 Long term (current) use of inhaled steroids; Z90.2 Acquired absence of lung [part of]
CPT/HCPCS: 36415; 36600; 71045; 71260; 80048; 80053; 82728; 82803; 83605; 83735; 83880; 84100; 84484; 85025; 85379; 85610; 86141; 87502; 93005; 93010; 94660; 96374; 96375; 99285-25; C9113; J0456; J0696; J1650; J2060; J2270; J7030; J7060; J7121; Q9967

== ENCOUNTER → 2019-08-31 | Emergency (ER) | payer MEDICARE ==
[~2019-08-31] VITALS: Ht 198.1 cm; Wt 83.0 kg
[~2019-08-31] MED LIST changes: +DICYCLOMINE HCL20 MG PO
--- OUTSIDE RECORDS SUMMARY | ~2019-08-31 | XMS | Encounter Summary ---
Demographics + + + | Address | [address] | | | [place] [address] | + + + | Home Phone | | + + + | Preferred Language | Unknown | + + + | Marital Status | | + + + | Buddhist Affiliation | 1013 | + + + | Race | Unknown | + + + | Ethnic Group | Unknown | + + + Author + + + | Author | [facility] | | | and [place] | + + + | Organization | [facility] | | | [...] Team Providers + +------+ + | Care Card Maker Name | Role | Phone | + [...] [place] | | | | | [place], [place] | [address] | | | | | [address] | | | | | | [phone] | | | +--------+ + + + [...] as of this encounter Plan of Treatment +--------+ + + + + | Date | Type | Specialty | Care Team | Description | +--------+ + + + + | 09/03/ | Virtual | Pulmonology | Tristian Fotoe MD | | | 2019 | Office | | [address] | | | | Visit | | [place] | | | | | | [id number] | | | | | | | | +--------+ + + + + documented as of this [...] TR maxP.95 mmHg TR Vmax: 2.49 m/s Recruiting Internship: | | | Authenticated by: Donis Smith Report Date/Time: 08-19-2017 21:7:55 | | | | | + + + + + | Procedure Note | + + | [place] Conversion - 12/08/2018 3:40 PM PDT Patient Name: Rich Champion of | | : 1955 Performing Physician: Donis | | [facility] INDICATIONS------ | | -----Dyspnea CONCLUSIONS 1. The [...] cmLVIDd: 5.06 cmLVPWd: 0.97 cmLVOT Area: 3.66 [id number] Diam: 2.15 | | cm%FS: 27.76 %EF(Teich): [...] mlLAESV Index (A-L): 57.55 ml/m2LAAs A2C: 34.87 bi2MFERK A-L A2C: 152.77 mlLALs | | A2C: 6.75 cmLAAs A4C: 30.61 ns9YLWVD A-L A4C: 112.44 mlLALs A4C: 7.07 cmRAAd: | | 33.56 gc9SRDFR A-L: 153.95 mlRAEDV MOD: 149.23 mlRALd: 6.21 cmRAAs: 24.46 | | zd4JDGQL A-L: 88.12 mlRAESV MOD: 85.83 mlRALs: 5.76 cmTAPSE: 1.98 cmAV maxPG: | | 4.61 mmHgAV meanP.17 mmHgAV Vmax: 1.07 m/Mansi Vmean: 0.66 m/Mansi VTI: 15.51 | | cmAVA Vmax: 2.99 cm2AVA (VTI): 3.22 uv8MCLR Vmax: 0.00 cm2/m2AVAI (VTI): 0.00 | | cm2/m2LVOT maxP.09 mmHgLVOT meanP.47 mmHgLVSI Dopp: 21.46 ml/m2LVSV Dopp: | | 50.00 mlLVOT Vmax: 0.87 m/sLVOT Vmean: 0.56 m/sLVOT VTI: 13.65 cmMV A Gilbert: | | 0.03 m/sMV DecT: 101.43 msMV E Gilbert: 0.58 m/sMV E/A Ratio: 19MV PHT: 29.41 msMVA | | By PHT: 7.47 yb5Ioevwt e': 0.10 m/sSeptal E/e': 5.72Lateral e': 0.07 m/sLateral | | E/e': 7.30RAP: 5 mmHgRVSP: 29.95 mmHgTR maxP.95 mmHgTR Vmax: 2.49 m/s | | Recruiting Internship:Authenticated by: Donis Ramos Date/Time: 08-19-2017 21:7:55 | [...] |TR Vmax: 2.49 m/s | | | |Recruiting Internship: | |Authenticated by: Donis Smith | |Report [...]
--- OUTSIDE RECORDS SUMMARY | ~2019-08-31 | XMS | Encounter Summary ---
Demographics + + + | Address | [address] | | | [place] [address] | + + + | Home Phone | | + + + | Preferred Language | Unknown | + + + | Marital Status | | + + + | Anabaptism Affiliation | 1013 | + + + | Race | Unknown | + + + | Ethnic Group | Unknown | + + + Author + + + | Author | [facility] | | | and [place] | + + + | Organization | [facility] | | [...] Team Providers + +------+ + | Care Finance Associate Name | Role | Phone | + +------+ + | Landen Schaffer MD | PCP | | + +------+ + Encounter Details +--------+ + + + + | Date | Type | Department | Care Team | Description | +--------+ + + + + | 07/21/ | Hospital | [facility] | Conversion | | | 2019 | Encounter | [facility] | Transaction, | | | | | CLINIC [address] | Provider Unknown | | | | | [place] | [phone] | | | | | [address] | | | | | | [phone] | | | +--------+ + + + [...] 2 tablets by | | 0 | //20 | | | (TYLENOL) 500 mg | mouth every 8 | | | 19 | | | tablet [...] THREE TIMES | | | 19 | | | capsule | DAILY | | | | | + + + +---------+ + + | methocarbamol | TAKE ONE TABLET BY | | 0 | 05/24/19 | | | (ROBAXIN) 500 mg | MOUTH THREE TIMES | | | 19 | | | tablet | DAILY NEEDED | [...] for | | | | | | tablet | Erectile | | | | | | | Dysfunction. | | | | | + + + +---------+ + + | warfarin | Take 4 mg by mouth | | 0 | | | | (COUMADIN) 4 MG | Daily. | | | | | | tablet | | | | [...] 09/03/ | Virtual | Pulmonology | Tristian Foote MD | | | 2019 | Office | | [address] | | | | Visit | | [place] | | | | | | [address] | | | | | | | | +--------+ + + + + documented as of this encounter Procedures + +--------+ + + + | Procedure Name | Priori | Date/Time | Associated Diagnosis | Comments | | | ty | | | | + +--------+ + + + | EXTERNAL LAB: CBC | Routin | 07/21/2018 | | Results for this | | | e | 5:20 PM | | procedure are in the | | | | PDT | | results section. | + +--------+ + + + | PROTIME INR | Routin | 07/21/2018 | | Results for this | | | e | 5:20 PM | | procedure are in the | | | | PDT | | results section. | + +--------+ + + + | BASIC METABOLIC | Routin | 07/21/2018 | | Results for this | | PANEL | e | 5:20 PM | | procedure are in the | | | | PDT | | results section. | + +--------+ + + + | MRSA NAAT | Timed | 07/21/2018 | | Results for this | | | | 5:18 PM | | procedure are in the | | | | PDT | | results section. | + +--------+ + + + | ECG 12 LEAD | Routin | 07/21/2018 | | Results for this | | | e | 5:16 PM | | procedure are in the | | | | PDT | | results section. | + +--------+ + + + documented in this encounter Results Luciaime INR (07/21/2018 5:20 PM PDT) + + + + + + | Component | Value | Ref Range | Performed | Pathologist | | | | | At | Signature | + + + + + + | INR | 2.1Comment: REFERENCE | | EXTERNAL | | | | RANGE:0.9 - 1.2 | | LAB | | | | NON-ANTICOAGULATED2.0 | | | | | | - 3.0 ALL OTHER | | | | | | THERAPEUTIC | | | | | | INDICATIONS2.5 - 3.5 | | | | | | MECHANICAL HEART VALVES, | | | | | | RECURRENT OR SYSTEMIC | | | | | | EMBOLISMTesting | | | | | | performed at [facility] | | | | | | [address];[place], [place] | | | | | | [address] | | | | + + + + + + + + | Specimen | + + | Blood specimen | | (specimen) | + + + +---------+ + + | Performing | Address | City/State/Zipcode | Phone Number | | Organization | | | | + +---------+ + + | EXTERNAL LAB | | | | + +---------+ + + External Lab: CBC (07/21/2018 5:20 PM PDT) + + + + + + | Component | Value | Ref Range | Performed | Pathologist | | | | | At | Signature | + + + + + + | WBC | 7.56 | 3.80 - 11.00 | EXTERNAL | | | | | K/uL | LAB | | + + + + + + | Red Blood | 4.86 | 4.20 - 5.70 | EXTERNAL | | | Cells | | M/uL | LAB | | | Counted | | | | | + + + + + + | Hemoglobin | 15.6 | 13.2 - 17.0 | EXTERNAL | | | | | g/dL | LAB | | + + + + + + | Hematocrit, | 47.1 | 39.0 - 50.0 % | EXTERNAL | | | POC | | | LAB | | + + + + + + | MCV | 96.9 | 80.0 - 100.0 fl | EXTERNAL | | | | | | LAB | | + + + + + + | MCH | 32.1 | 27.0 - 34.0 pg | EXTERNAL | | | | | | LAB | | + + + + + + | MCHC | 33.1 | 32.0 - 35.5 | EXTERNAL | | | | | g/dL | LAB | | + + + + + + | RDW-CV | 47.3 | 37 - 53 fl | EXTERNAL | | | | | | LAB | | + + + + + + | Platelet | 209 | 150 - 400 K/uL | EXTERNAL | | | Count | | | LAB | | | Plasma | | | | | + + + + + + | MPV | 10.2 | fl | EXTERNAL | | | | | | LAB | | + + + + + + | Differentia | AUTOMATED | | EXTERNAL | | | l Type | | | LAB | | + + + + + + | % Segmented | 56.45 | % | EXTERNAL | | | | | | LAB | | | Neutrophils | | | | | + + + + + + | % | 28.85 | % | EXTERNAL | | | Lymphocytes | | | LAB | | + + + + + + | % Monocytes | 11.43 | % | EXTERNAL | | | | | | LAB | | + + + + + + | % | 2.12 | % | EXTERNAL | | | Eosinophils | | | LAB | | + + + + + + | % Basophils | 1.15 | % | EXTERNAL | | | | | | LAB | | + + + + + + | Absolute | 4.27 | 1.90 - 7.40 | EXTERNAL | | | Segmented | | K/uL | LAB | | | Neutrophils | | | | | + + + + + + | Absolute | 2.18 | 1.00 - 3.90 | EXTERNAL | | | Lymphocytes | | K/uL | LAB | | + + + + + + | Absolute | 0.86 (H) | 0.00 - 0.80 | EXTERNAL | | | Monocytes | | K/uL | LAB | | + + + + + + | Absolute | 0.16 | 0.00 - 0.50 | EXTERNAL | | | Eosinophils | | K/uL | LAB | | + + + + + + | Absolute | 0.09Comment: Testing | 0.00 - 0.10 | EXTERNAL | | | Basophils | performed at [facility], [address] | K/uL | LAB | | | | [address], | | | | | | [place] [address] | | | | + + + + + + + + | Specimen | + + | Blood specimen | | (specimen) | + + + +---------+ + + | Performing | Address | City/State/Zipcode | Phone Number | | Organization | | | | + +---------+ + + | EXTERNAL LAB | | | | + +---------+ + + Basic Metabolic Panel (07/21/2018 5:20 PM PDT) + + + + + + | Component | Value | Ref Range | Performed | Pathologist | | | | | At | Signature | + + + + + + | Na | 141 | 135 - 145 | EXTERNAL | | | | | mmol/L | LAB | | + + + + + + | K | 4.3 | 3.5 - 4.9 | EXTERNAL | | | | | mmol/L | LAB | | + + + + + + | Cl | 108 | 99 - 109 mmol/L | EXTERNAL | | | | | | LAB | | + + + + + + | CO2 | 29 | 23 - 32 mmol/L | EXTERNAL | | | | | | LAB | | + + + + + + | Anion Gap | 8 | 5 - 20 mmol/L | EXTERNAL | | | | | | LAB | | + + + + + + | Glucose, | 80 | 65 - 99 mg/dL | EXTERNAL | | | Fasting | | | LAB | | + + + + + + | BUN | 13 | 8 - 25 mg/dL | EXTERNAL | | | | | | LAB | | + + + + + + | Creatinine | 1.0 | 0.70 - 1.30 | EXTERNAL | | | | | mg/dL | LAB | | + + + + + + | BUN/Creatin | 13 | | EXTERNAL | | | ine Ratio | | | LAB | | + + + + + + | Calcium | 9.4 | 8.5 - 10.5 | EXTERNAL | | | | | mg/dL | LAB | | + + + + + + | Estimated | >60Comment: GFR <60: | mL/min/1.73m2 | EXTERNAL | | | GFR | CHRONIC KIDNEY DISEASE, | | LAB | | | | IF FOUND OVER A 3 MONTH | | | | | | PERIOD.GFR <15: KIDNEY | | | | | | FAILURE.FOR | | | | | | AMERICANS, MULTIPLY THE | | | | | | CALCULATED GFR BY | | | | | | 1.210.This eGFR is | | | | | | calculated using the | | | | | | MDRD IDMS traceable | | | | | | equation.Testing | | | | | | performed at [facility], [address] | | | | | | [facility], | | | | | | [place] [address] | | | | + + + + + + + + | Specimen | + + | Blood specimen | | (specimen) | + + + +---------+ + + | Performing | Address | City/State/Zipcode | Phone Number | | Organization | | | | + +---------+ + + | EXTERNAL LAB | | | | + +---------+ + + MRSA NAAT (07/21/2018 5:18 PM PDT) + + | Specimen | + + | | + + + + + | Narrative | Performed At | + + + | SOURCE NARES(NOSE) MRSA | EXTERNAL LAB | | PCR NEGATIVE Testing | | | performed at [facility];[address] [place] [address];[place] [address] | | + + + + +---------+ + + | Performing | Address | City/State/Zipcode | Phone Number | | Organization | | | | + +---------+ + + | EXTERNAL LAB | | | | + +---------+ + + ECG 12 lead (07/21/2018 5:16 PM PDT) + + + + + + | Component | Value | Ref Range | Performed | Pathologist | | | | | At | Signature | + + + + + + | DIAGNOSIS: | Atrial fibrillationRight | | EXTERNAL | | | | bundle branch | | LAB | | | | blockAbnormal ECGWhen | | | | | | compared with ECG of | | | | | | 19-MAY-2018 14:15,No | | | | | | significant change was | | | | | | foundConfirmed by | | | | | | Donis Lin MD | | | | | | ([id number]) on 07/22/2018 | | | | | | 8:00:26 PM | | | | + + + + + + + + | Specimen | + + | | + + + + + | Narrative | Performed At | + + + | Historically converted procedure from [facility] Epic environment | EXTERNAL LAB | + + + + +---------+ + + | Performing | Address | City/State/Zipcode | Phone Number | | Organization | | | | + +---------+ + + | EXTERNAL LAB | | | | + +---------+ + + documented in this encounter Visit Diagnoses Not on filedocumented in this encounter"
--- OUTSIDE RECORDS SUMMARY | ~2019-08-31 | XMS | Encounter Summary ---
Demographics + + + | Address | [address] | | | [place] [address] | + + + | Home Phone | | + + + | Preferred Language | Unknown | + + + | Marital Status | | + + + | Denominational Affiliation | 1013 | + + + [...] Team Providers + +------+ + | Care Trackless Trolley Driver Name | Role | Phone | + +------+ + | Maria Vieira | PCP | | + +------+ + Reason for Referral Diagnostic/Screening (Routine) + +--------+ + + + + | Status | Reason | Specialty | Diagnoses / | Referred By | Referred To | | | | | Procedures | Contact | Contact | + +--------+ + + + + | Authorized | | | Diagnoses | [facility] | [facility] | | | | | Pulmonary | MD Tristian | [facility] | | | | | HTN (HCC) | [address] | | | | | Procedures | [address] | [address] [address] | | | | | ECHO | [place] | [place] | | | | | Complete | [place] | [address] | | | | | | [address] | Phone: | | | | | | Phone: | [phone] | | | | | | [phone] | Fax: | | | | | | Fax: | [phone] | | | | | | [phone] | | + +--------+ + + + + Encounter Details +--------+ + + + + | Date | Type | Department | Care Team | Description | +--------+ + + + + | 08/27/ | Orders Only | [facility] | Tristian Foote MD | Pulmonary HTN (HCC) | | 2020 | | PULMONOLOGY [address] | [address] | (Primary Dx) | | | | [address] | [place] | | | | | [place] | [address] | | | | | [address] | | | | | | [phone] | | | +--------+ + + + [...] | | 2019 | Office | | [address] | | | | Visit | | [place], [place] | | | | | | [address] | | | | | | | | +--------+ + + + + + + +--------+ + + | Name | Type | Priori | Associated Diagnoses | Order Schedule | | | | ty | | | + + +--------+ + + | ECHO Complete | Echocardiog | Routin | Pulmonary HTN | Expected: | | | elise | e | (HCC) | 08/28/2019, Expires: | | | | | | 08/27/2020 | + + +--------+ + + documented as of this encounter Visit Diagnoses + + | Diagnosis | + + | Pulmonary HTN (HCC) - Primary Other chronic pulmonary heart diseases | + + documented in this encounter"
--- OUTSIDE RECORDS SUMMARY | ~2019-08-31 | XMS | Encounter Summary ---
Demographics + + + | Address | [address] | | | [place] [address] | + + + | Home Phone | | + + + | Preferred Language | Unknown | + + + | Marital Status | | + + + | Episcopalian Affiliation | 1013 | + + + | Race | Unknown | + + + | Ethnic Group | Unknown | + + + Author + + + | Author | [facility] | | | and [place] | + + + | Organization | [facility] | | | [...] Team Providers + +------+ + | Care Hide And Skin Colerer Name | Role | Phone | + +------+ + | Landen Schaffer MD | PCP | | + +------+ + Encounter Details +--------+ + + + + | Date | Type | Department | Care Team | Description | +--------+ + + + + | 02/22/ | Hospital | [facility] | Conversion | Pain | | 2018 | Encounter | CONVERSION DEP [address] | Transaction, | | | | | [address] | Provider Unknown | | | | | [place] | [phone] | | | | | [address] | | | | | | [phone] | | | +--------+ + + + [...] [place] | | | | | | [address] | | | | | | | | +--------+ + + + + documented as of this encounter Procedures + +--------+ + + + | Procedure Name | Priori | Date/Time | Associated Diagnosis | Comments | | | ty | | | | + +--------+ + + + | CT CHEST WO CONTRAST | Routin | 02/11/2018 | | Results for this | | | e | 1:13 AM | | procedure are in the | | | | PDT | | results section. | + +--------+ + + + documented in this encounter Results CT Chest wo Contrast (02/11/2018 1:13 AM PDT) + + | Specimen | + + | | + + + + + | Narrative | Performed At | + + + | This is a non-reportable procedure without a radiologist report and | | | is used for image storage only | | + + + + + | Procedure Note | + + | [place]an [place] Lino - 11/30/2018 6:52 AM PDT This is a non-reportable procedure | | without a radiologist report and isused for image storage only | + + documented in this encounter Visit Diagnoses + + | Diagnosis | + + | Pain Generalized pain | + + documented in this encounter"
--- OUTSIDE RECORDS SUMMARY | ~2019-08-31 | XMS | Clinical Summary ---
Demographics + + + | Address | [address] | | | [place] [address] | + + + | Home Phone | | + + + | Preferred Language | Unknown | + + + | Marital Status | | + + + | Pentecostal Affiliation | 1013 | + + + | Race | Unknown | + + + | Ethnic Group | Unknown | + + + Author + + + | Author | [facility] | | | and [place] | + + + | Organization | [facility] | | [...] Team Providers + +------+ + | Care Insurance Processor Name | Role | Phone | + [...] 20 mg tablet | | | | 01/06 | | e | | | | | | 19 | | | + + + +---------+------+------+-------+ | gabapentin | TAKE ONE CAPSULE BY | | 0 | 02/0 | | Activ | | (NEURONTIN) 300 mg | MOUTH THREE TIMES | | | 09/05 | | e | | capsule | [...] | | + + + +---------+------+------+-------+ | SYMBICORT 160-4.5 | INHALE 2 PUFFS BY | 1 | 12 | 11/2 | | Activ | | MCG/ACT inhaler | MOUTH TWICE DAILY | Inhaler | | 5/20 | | e | | | | | | 19 | | | + + + +---------+------+------+-------+ | fluticasone | Inhale 1 puff into | | 0 | | 05/0 | Disco | | (FLOVENT HFA) 220 | the lungs 2 times | | | | 6/20 | ntinu | | mcg/puff inhaler | daily. | | | | 20 | ed | + + + +---------+------+------+-------+ | albuterol 90 | Inhale 2 puffs into | | 0 | | 05/0 | Disco | | mcg/puff inhaler | the lungs every 4 | | | | / | ntinu | | | (four) hours as | | | | 20 | ed | | | needed. | | | | | (Dupl | | | | | | | | icate | | | | | | | | | | | | | | | | Entry | | | | | | | | ) | + + + +---------+------+------+-------+ Active Problems + + + | Problem | Noted Date | + + + | Encounter for monitoring diuretic therapy | 09/05/2018 | + + + | Encounter for removal of biliary stent | 08/17/2018 | + + + + + | Overview: Added automatically from request for surgery [id number] | + + + + + | [...] Overview: Added automatically from request for surgery [id number] | + + + + + | [...] | +--------+ + + + + | 08/28/ | Telephone | Pulmonology | Tristian Foote MD | Other (CT Scan) | | 2019 | | | | | +--------+ + + + + | 08/27/ | Orders Only | Pulmonology | Tristian Foote MD | Pulmonary HTN (HCC) | | 2019 | | | | (Primary Dx) | +--------+ + + + + | 08/22/ | Virtual | Pulmonology | Tristian Foote MD | Simple chronic | | 2019 | Office | | | bronchitis (HCC) | | | Visit | | | (Primary Dx) | +--------+ + + + + | 07/12/ | Telephone | Gastroenterology | Cholo Sullivan | Appointment (Cancel | 2019 | | | MD Chuy | 07/17) | +--------+ + + + + from Last 3 Months Immunizations + + + + | Name | Administration Dates | Next Due | + + + [...] | Blood Pressure | 135/90 | 12/23/2018 10:40 AM | | | | | PDT | | + + + + + | Pulse | 80 | 12/23/2018 10:40 AM | | | | | PDT | | + + + + + | Temperature | 36.7 C (98 F) | 12/23/2018 10:40 AM | | | | | PDT | | + + + + + | Respiratory Rate | 16 | 11/07/2018 1:04 PM | | | | | PDT | | + + + + + | Oxygen Saturation | 99% | 12/23/2018 10:40 AM | | | | | PDT | | + + + + + | Inhaled Oxygen | - | - | | | Concentration | | | | + + + + + | Weight | 94.3 kg (208 lb) | 12/23/2018 10:40 AM | | | | | PDT | | + + + + + | Height | 182.9 cm (6') | 12/23/2018 10:40 AM | | | | | PDT | | + + + + + | Body Mass Index | 28.21 | 12/23/2018 10:40 AM | | | | | PDT | | + + + + + Plan of Treatment +--------+ + + + + | Date | Type | Specialty | Care Team | Description | +--------+ + + + + | 09/03/ | Virtual | Pulmonology | Tristian Foote MD | | | 2019 | Office | | [address] | | | | Visit | | [place] | | | | | | [id number] | | | | | | | | +--------+ + + + + + + + + + | Health Maintenance | Due Date | Last Done | Comments | + + + + + | Vaccine: | 08/19/196 | | | | Pneumococcal 19-64 | 4 | | | | (1 of 1 - PPSV23) | | | | + + + + + | Vaccine: | | | | | Dtap/Tdap/Td (1 - | 9 | | | | Tdap) | | [...] 02/02/2017 | | | (Season Ended) | 0 | | | + + + + [...] N/A: | [facility] | | 01/26/ | [id number] | | [id number]: Qty: 1 on | | Bile | SCIENTIFIC | | 2019 | 320 / | | 08/03/2018 by Laurie, | | Duct | TYLER - BSCI | | | /[id number] | | Cholo Vera MD | | | | | | 219 | + +------+-------+ +--------+--------+--------+ Results Not on filefrom Last 3 Months [...] +--------+ +---------+--------+ | MEDICARE | [facility] | [id number] | 08/18/19 | [phone] | | Medica | | | AD | | 04-Pre | 5 | | re | | | MEDICA | | sent | | | | | | RE | | | | | | + +--------+ +--------+ +---------+--------+ | MEDICARE | [facility] | [id number] | 08/18/19 | [phone] | | Medica [...] | Self | [birth year] | | [address] | | Vishnu | al/Fam | | 1955 | [phone] | [place] | | | [place] | | | 0 (Home) | [address] | + +--------+ +--------+ + + | Mason Champion | Person | Self | [birth year] | | [address] | | Vishnu | al/Fam | | 8 | [phone] | [place] | | | [place] | | | 0 (Home) | [address] | + +--------+ +--------+ + + Advance Directives + + + + + | Type | Date Recorded | Patient | Explanation | | | | Thumb Sewer | | + + + + + | Power of | | | | | Veterinarian Epidemiologist | | | | + + + + + | Advance | | | | | Directive | | | | + + + + +"
--- OUTSIDE RECORDS SUMMARY | ~2019-08-31 | XMS | Encounter Summary ---
Demographics + + + | Address | [address] | | | [place] [address] | + + + | Home Phone | | + + + | Preferred Language | Unknown | + + + | Marital Status | | + + + | Sikh Affiliation | 1013 | + + + | Race | Unknown | + + + | Ethnic Group | Unknown | + + + Author + + + | Author | [facility] | | | and [place] | + + + | Organization | [facility] | | | [...] Team Providers + +------+ + | Care Carbon Coating Machine Operator Name | Role | Phone | [...] + + | 12/16/ | Telephone | [facility] | Michele Motta MD | Chest Pain Follow-up | | 2019 | | GENERAL SURGERY [address] | [address] [place] | | | | | [address] | [address] [place], [place] | | | | | [place], [place] | [address] | | | | | [address] | | | | | | [phone] | | | +--------+ + + + [...] | | Visit | | [place] | | | | | | [address] | | | | | | | | +--------+ + + + + documented as of this encounter Visit Diagnoses Not on filedocumented in this encounter"
--- OUTSIDE RECORDS SUMMARY | ~2019-08-31 | XMS | Encounter Summary ---
Demographics + + + | Address | [address] | | | [place] [address] | + + + | Home Phone | | + + + | Preferred Language | Unknown | + + + | Marital Status | | + + + | Advent Affiliation | 1013 | + + + | Race | Unknown | + + + | Ethnic Group | Unknown | + + + Author + + + | Author | [facility] | | | and [place] | + + + | Organization | [facility] | | | and [...] Team Providers + +------+ + | Care Silk Trimmer Name | Role | Phone | + +------+ + | Landen Schaffer MD | PCP | | + +------+ + Encounter Details +--------+ + + + + | Date | Type | Department | Care Team | Description | +--------+ + + + + | 05/10/ | Hospital | [facility] | Conversion | | | 2019 | Encounter | [facility] | Transaction, | | | | | CLINIC [address] | Provider Unknown | | | | | [place] | [phone] | | | | | [address] | | | | | | [phone] | | | +--------+ + + + [...] | Blood Pressure | 146/95 | 05/10/2018 12:56 PM | | | | | PST | | + + + + + | Pulse | 65 | 05/10/2018 12:56 PM | | | | | PST | | + + + + + | Temperature | - | - | | + + + + + | Respiratory Rate | 16 | 05/10/2018 12:56 PM | | | | | PST | | + + + + + | Oxygen Saturation | - | - | | + + + + + | Inhaled Oxygen | - | - | | | Concentration | | | | + + + + + | Weight | 102.2 kg (225 lb 5 | 05/10/2018 12:56 PM | | | | oz) | PST | | + + + + + | Height | 198.1 cm (6' 6") | 05/10/2018 12:56 PM | | | | | PST | | + + + + + | Body Mass Index | 26.04 | 05/10/2018 12:56 PM | | | | | PST | | + + + + + documented in this encounter Medications at Time [...] | | | Visit | | [place] | | | | | | [address] | | | | | | | | +--------+ + + + + documented as of this encounter Procedures + +--------+ + + + | Procedure Name | Priori | Date/Time | Associated Diagnosis | Comments | | | ty | | | | + +--------+ + + + | EXTERNAL LAB: CBC | Routin | 05/10/2018 | | Results for this | | | e | 1:06 PM | | procedure are in the | | | | PST | | results section. | + +--------+ + + + | PTT | Routin | 05/10/2018 | | Results for this | | | e | 1:06 PM | | procedure are in the | | | | PST | | results section. | + +--------+ + + + | PROTIME INR | Routin | 05/10/2018 | | Results for this | | | e | 1:06 PM | | procedure are in the | | | | PST | | results section. | + +--------+ + + + | BASIC METABOLIC | Routin | 05/10/2018 | | Results for this | | PANEL | e | 1:06 PM | | procedure are in the | | | | PST | | results section. | + +--------+ + + + | MRSA NAAT | Timed | 05/10/2018 | | Results for this | | | | 1:05 PM | | procedure are in the | | | | PST | | results section. | + +--------+ + + + | TYPE AND SCREEN | Routin | 05/10/2018 | | Results for this | | | e | 1:04 PM | | procedure are in the | | | | PST | | results section. | + +--------+ + + + documented in this encounter Results PTT (05/10/2018 1:06 PM PST) + + + + + + | Component | Value | Ref Range | Performed | Pathologist | | | | | At | Signature | + + + + + + | aPTT, | 37 (H)Comment: Testing | 23 - 32 seconds | EXTERNAL | | | Patient | performed at [facility];[address] | | LAB | | | | [address];[place], [place] | | | | | | [address] | | | | + + + + + + + + | Specimen | + + | Blood specimen | | (specimen) | + + + +---------+ + + | Performing | Address | City/State/Zipcode | Phone Number | | Organization | | | | + +---------+ + + | EXTERNAL LAB | | | | + +---------+ + + Protime INR (05/10/2018 1:06 PM PST) + + + + + + | Component | Value | Ref Range | Performed | Pathologist | | | | | At | Signature | + + + + + + | INR | 2.9Comment: REFERENCE | | EXTERNAL | | | [...] | | | | | performed at [facility];[address] | | | | | | [address] [facility];[place], [place] | | | | | | [address] | | | | + + + [...] + +---------+ + + External Lab: CBC (05/10/2018 1:06 PM PST) + + + + + + | Component | Value | Ref Range | Performed | Pathologist | | | | | At | Signature | + + + + + + | WBC | 5.61 | 3.80 - 11.00 | EXTERNAL | | | | | K/uL | LAB | | + + + + + + | Red Blood | 4.87 | 4.20 - 5.70 | EXTERNAL | | | Cells | | M/uL | LAB | | | Counted | | | | | + + + + + + | Hemoglobin | 15.6 | 13.2 - 17.0 | EXTERNAL | | | | | g/dL | LAB | | + + + + + + | Hematocrit, | 46.8 | 39.0 - 50.0 % | EXTERNAL | | | POC | | | LAB | | + + + + + + | MCV | 96.0 | 80.0 - 100.0 fl | EXTERNAL | | | | | | LAB | | + + + + + + | MCH | 32.0 | 27.0 - 34.0 pg | EXTERNAL | | | | | | LAB | | + + + + + + | MCHC | 33.3 | 32.0 - 35.5 | EXTERNAL | | | | | g/dL | LAB | | + + + + + + | RDW-CV | 46.8 | 37 - 53 fl | EXTERNAL | | | | | | LAB | | + + + + + + | Platelet | 173 | 150 - 400 K/uL | EXTERNAL | | | Count | | | LAB | | | Plasma | | | | | + + + + + + | MPV | 10.4 | fl | EXTERNAL | | | | | | LAB | | + + + + + + | Differentia | AUTOMATED | | EXTERNAL | | | l Type | | | LAB | | + + + + + + | % Segmented | 55.37 | % | EXTERNAL | | | | | | LAB | | | Neutrophils | | | | | + + + + + + | % | 30.00 | % | EXTERNAL | | | Lymphocytes | | | LAB | | + + + + + + | % Monocytes | 11.02 | % | EXTERNAL | | | | | | LAB | | + + + + + + | % | 2.35 | % | EXTERNAL | | | Eosinophils | | | LAB | | + + + + + + | % Basophils | 1.26 | % | EXTERNAL | | | | | | LAB | | + + + + + + | Absolute | 3.11 | 1.90 - 7.40 | EXTERNAL | | | Segmented | | K/uL | LAB | | | Neutrophils | | | | | + + + + + + | Absolute | 1.68 | 1.00 - 3.90 | EXTERNAL | | | Lymphocytes | | K/uL | LAB | | + + + + + + | Absolute | 0.62 | 0.00 - 0.80 | EXTERNAL | | | Monocytes | | K/uL | LAB | | + + + + + + | Absolute | 0.13 | 0.00 - 0.50 | EXTERNAL | | | Eosinophils | | K/uL | LAB | | + + + + + + | Absolute | 0.07Comment: Testing | 0.00 - 0.10 | EXTERNAL | | | Basophils | performed at [facility], [address] | K/uL | LAB | | | | [address], | | | | | | [place] [address] | | | | + + + [...] + +---------+ + + Basic Metabolic Panel (05/10/2018 1:06 PM PST) + + + + + + | Component | Value | Ref Range | Performed | Pathologist | | | | | At | Signature | + + + + + + | Na | 141 | 135 - 145 | EXTERNAL | | | | | mmol/L | LAB | | + + + + + + | K | 4.4 | 3.5 - 4.9 | EXTERNAL | | | | | mmol/L | LAB | | + + + + + + | Cl | 105 | 99 - 109 mmol/L | EXTERNAL | | | | | | LAB | | + + + + + + | CO2 | 26 | 23 - 32 mmol/L | EXTERNAL | | | | | | LAB | | + + + + + + | Anion Gap | 14 | 5 - 20 mmol/L | EXTERNAL | | | | | | LAB | | + + + + + + | Glucose, | 86 | 65 - 99 mg/dL | EXTERNAL | | | Fasting | | | LAB | | + + + + + + | BUN | 14 | 8 - 25 mg/dL | EXTERNAL | | | | | | LAB | | + + + + + + | Creatinine | 1.1 | 0.70 - 1.30 | EXTERNAL | | | | | mg/dL | LAB | | + + + + + + | BUN/Creatin | 13 | | EXTERNAL | | | ine Ratio | | | LAB | | + + + + + + | Calcium | 8.5 | 8.5 - 10.5 | EXTERNAL | [...] | | | | | performed at [facility], [address] | | | | | | [facility], | | | | | | [place] [address] | | | | + + + + + + + + | Specimen | + + | Blood specimen | | (specimen) | + + + +---------+ + + | Performing | Address | City/State/Zipcode | Phone Number | | Organization | | | | + +---------+ + + | EXTERNAL LAB | | | | + +---------+ + + MRSA NAAT (05/10/2018 1:05 PM PST) + + | Specimen | + + | | + + + + + | Narrative | Performed At | + + + | SOURCE NARES(NOSE) MRSA | EXTERNAL LAB | | PCR NEGATIVE Testing | | | performed at [facility];[address] [facility];[place] [address] | | + + + + +---------+ + + | Performing | Address | City/State/Zipcode | Phone Number | | Organization | | | | + +---------+ + + | EXTERNAL LAB | | | | + +---------+ + + Type and Screen (05/10/2018 1:04 PM PST) + + + + + + | Component | Value | Ref Range | Performed | Pathologist | | | | | At | Signature | + + + + + + | ABO Rh | O POSITIVE | | EXTERNAL | | | | | | LAB | | + + + + + + | Antibody | NEGATIVETesting | | EXTERNAL | | | Screen | performed at [facility];[address] | | LAB | | | | [address];[place], [place] | | | | | | [address] | | | | + + + [...] Visit Diagnoses Not on filedocumented in this encounter
--- OUTSIDE RECORDS SUMMARY | ~2019-08-31 | XMS | Encounter Summary ---
Demographics + + + | Address | [address] | | | [place] [address] | + + + | Home Phone | | + + + | Preferred Language | Unknown | + + + | Marital Status | | + + + | Buddhism Affiliation | 1013 | + + + | Race | Unknown | + + + | Ethnic Group | Unknown | + + + Author + + + | Author | [facility] | | | and [place] | + + + | Organization | [facility] | | | [...] Providers + +------+ + | Care Industrial Production Manager Name | Role | Phone | + +------+ + | Landen Schaffer MD | PCP | | + +------+ + Encounter Details +--------+ + + + + | Date | Type | Department | Care Team | Description | +--------+ + + + + | 06/22/ | Hospital | [facility] | Michele Motta MD | | | 2019 | Encounter | [facility] | [address] | | | | | INTRA OP [address] | [address] [place], [place] | | | | | [address] [place], [place] | [address] | | | | | [address] | | | | | | [phone] | | | +--------+ + + + [...] + + documented as of this encounter Discharge Summaries Michele Motta MD - 06/22/2018 3:15 PM PST Discharge Summaries by Michele Motta MD at 06/22/18 0901 Author: Michele Motta MD Service: General Surgery Author Type: Physician Filed: 06/22/18 9036 Date of Service: 06/22/18 9383 Status: Signed Hr Shared Services Consultant: Michele Motta MD (Physician) [facility] Service: General Surgery Brief Post-op Discharge [...] No discharge procedures on file. Follow up: Michele Motta MD [address] [place] [id number] In 1 week for routine post operative visit. Maria Vieira PA-C [address] [place] [address] Medication List CONTINUE [...] them or your Primary Care Pro vider. MICHELE MOTTA MD 06/22/2018 documented in this enc ounter Medications at Time of Discharge + + [...] [place] | | | | | | [address] | | | | | | | | +--------+ + + + + documented as of this encounter Procedures + +--------+ + + + | Procedure Name | Priori | Date/Time | Associated Diagnosis | Comments | | | ty | | | | + +--------+ + + + | PROTIME INR | Routin | 06/22/2018 | | Results for this | | | e | 12:17 PM | | procedure are in the | | | | PST | | results section. | + +--------+ + + + documented in this encounter Results Protime INR (06/22/2018 12:17 PM PST) + + + + + + | Component | Value | Ref Range | Performed | Pathologist | | | | | At | Signature | + + + + + + | INR | 1.1Comment: REFERENCE | | EXTERNAL | | | [...] | | | | | performed at [facility] | | | | | | [facility];[place], [place] | | | | | | [address] | | | | + + + [...]
--- OUTSIDE RECORDS SUMMARY | ~2019-08-31 | XMS | Encounter Summary ---
Demographics + + + | Address | [address] | | | [place] [address] | + + + | Home Phone | | + + + | Preferred Language | Unknown | + + + | Marital Status | | + + + | Latter-Day Affiliation | 1013 | + + + | Race | Unknown | + + + | Ethnic Group | Unknown | + + + Author + + + | Author | [facility] | | | and [place] | + + + | Organization | [facility] | | [...] Team Providers + +------+ + | Care Vocational Teacher Name | Role | Phone | + +------+ + | Landen Schaffer MD | PCP | | + +------+ + Encounter Details +--------+ + + + + | Date | Type | Department | Care Team | Description | +--------+ + + + + | 04/27/ | Orders Only | [facility] | Landen Schaffer | | | 2014 | | [address] | MD [address] | | | | | [place] | [place] | | | | | [address] | [place] [address] | | | | | [phone] | [phone] | | | | | | | | +--------+ + + + + Social History + +-------+ +--------+------+ | Tobacco Use | Types | Packs/Day | Years | Date | | | | | Used | | + +-------+ +--------+------+ | Never Assessed | | | | | + +-------+ +--------+------+ + + + | Sex Assigned at [...] | Tristian Foote MD | | | 2020 | Office | | [address] | | | | Visit | | [place] [facility] [place] | | | | | | [address] | | | | | | | | +--------+ + + + + documented as of this encounter Procedures + +--------+ + + + | Procedure Name | Priori | Date/Time | Associated Diagnosis | Comments | | | ty | | | | + +--------+ + + + | VASQUEZ WANG | Routin | 04/27/2013 | | Results for this | | | e | 9:35 AM | | procedure are in the | | | | PST | | results section. | + +--------+ + + + | HEPATITIS C | Routin | 06/13/2012 | | Results for this | | RNA,QUANTITATIVE,PCR | e | 10:00 AM | | procedure are in the | | | | PST | | results section. | + +--------+ + + + documented in this encounter Results Protime INR (04/27/2013 9:35 AM PST) + + + + + + | Component | Value | Ref Range | Performed | Pathologist | | | | | At | Signature | + + + + + + | INR | 2.0Comment: REFERENCE | | EXTERNAL | | | [...] | | | | | performed at [facility];[address] | | | | | | [facility] | | | | | | [place] [address] | | | | | | | | | | + + + + + + + + | Specimen | + + | | + + + +---------+ + + | Performing | Address | City/State/Zipcode | Phone Number | | Organization | | | | + +---------+ + + | EXTERNAL LAB | | | | + +---------+ + + Hepatitis C RNA, quantitative, PCR (06/13/2012 10:00 AM PST) + + + + + + | Component | Value | Ref Range | Performed | Pathologist | | | | | At | Signature | + + + + + + | HCV-LOG 10 | 7.1 (A)Comment: Testing | Log IU/mL | EXTERNAL | | | | performed at [facility], [address] | | LAB | | | | [address] | | | | | | [place] [address] | | | | + + + + + + | HCV | [id number] (A)Comment: | IU/mL | EXTERNAL | | | Quantitativ | REPORTABLE RANGE HCV RNA | | LAB | | | e | 1.6 TO 7.8 LOG IU/ML | | | | | | (43 TO | | | | | | 69,000,000IU/ML).THIS | | | | | | ASSAY HAS A MEAN | | | | | | CONCENTRATION LIMIT OF | | | | | | DETECTION OF 7.1 | | | | | | IU/MLFOR HCV GENOTYPE | | | | | | 1.THIS ASSAY WAS | | | | | | PERFORMED USING THE | | | | | | FDA APPROVED MIC | | | | | | COBASAMPLIPREP/CHAVO | | | | | | TAQMAN HCV TEST.THE | | | | | | CHAVO AMPLIPREP/CHAVO | | | | | | TAQMAN HCV TEST IS NOT | | | | | | INTENDED FOR USE | | | | | | ASCREENING TEST FOR THE | | | | | | PRESENCE OF HCV IN BLOOD | | | | | | OR BLOOD | | | | | | PRODUCTS.Testing | | | | | | performed at [facility], [address] | | | | | | [address] [place] | | | | | | [place] [address] | | | | + + + + + + + + | Specimen | + + | | + + + +---------+ + + | Performing | Address | City/State/Zipcode | Phone Number | | Organization | | | | + +---------+ + + | EXTERNAL LAB | | | | + +---------+ + + documented in this encounter Visit Diagnoses Not on filedocumented in this encounter"
--- OUTSIDE RECORDS SUMMARY | ~2019-08-31 | XMS | Encounter Summary ---
Demographics + + + | Address | [address] | | | [place] [address] | + + + | Home Phone | | + + + | Preferred Language | Unknown | + + + | Marital Status | | + + + | Denominational Affiliation | 1013 | + + + | Race | Unknown | + + + | Ethnic Group | Unknown | + + + Author + + + | Author | [facility] | | | and [place] | + + + | Organization | [facility] | | | [...] Team Providers + +------+ + | Care Director Of Rooms Name | Role | Phone | + +------+ + | Landen Schaffer MD | PCP | | + +------+ + Encounter Details +--------+ + + + + | Date | Type | Department | Care Team | Description | +--------+ + + + + | 11/08/ | Orders Only | [facility] | Provider, | Essential (primary) | | 2019 | | SYSTEM GENERIC OP | MD [address] | hypertension; | | | | CONVERSION [address] | [address] | Shortness of breath; | | | | [address] [place], [place] | [place] [address] | Encounter for | | | | [address] | | screening for lipoid | | | | [phone] | | disorders; Long | | | | | | term current use of | | | | | | anticoagulant; | | | | | | Encounter for | | | | | | screening for | | | | | | diseases of the | | | | | | blood and | | | | | | blood-forming organs | | | | | | and certain | | | | | | disorders involving | | | | | | the immune | | | | | | mechanism; Chronic | | | | | | atrial fibrillation | | | | | | (HCC); Encounter for | | | | | | screening for other | | | | | | suspected endocrine | | | | | | disorder; Encounter | | | | | | for therapeutic | | | | | | drug level | | | | | | monitoring | +--------+ + + + + Social [...] [place] | | | | | | [address] | | | | | | | | +--------+ + + + + + +------+--------+ + + | Name | Type | Priori | Associated Diagnoses | Order Schedule | | | | ty | | | + +------+--------+ + + | Comprehensive | Lab | Routin | Essential | Expected: | | Metabolic Panel | | e | (primary) | 05/05/2018, Expires: | | | | | hypertension | 05/05/2019 | | | | | Shortness of breath | | | | | | Encounter for | | | | | | screening for lipoid | | | | | | disorders | | + +------+--------+ + + | CBC with Manual | Lab | Routin | Shortness of | Expected: | | Differential | | e | breath alf | 05/05/2018, Expires: | | | | | current use of | 05/05/2019 | | | | | anticoagulant | | | | | | Encounter for | | | | | | screening for | | | | | | diseases of the | | | | | | blood and | | | | | | blood-forming organs | | | | | | and certain | | | | | | disorders involving | | | | | | the immune mechanism | | + +------+--------+ + + | Thyroid Panel with | Lab | Routin | Chronic atrial | Expected: | | TSH | | e | fibrillation (HCC) | 05/05/2018, Expires: | | | | | Encounter for | 05/05/2019 | | | | | screening for other | | | | | | suspected endocrine | | | | | | disorder | | + +------+--------+ + + | Lipid Panel | Lab | Routin | Encounter for | Expected: | | | | e | screening for lipoid | 05/05/2018, Expires: | | | | | disorders | 05/05/2019 | + +------+--------+ + + | Basic Metabolic | Lab | Routin | Essential | Expected: | | Panel | | e | (primary) | 08/29/2018, Expires: | | | | | hypertension | 08/16/2019 | | | | | Encounter for | | | | | | therapeutic drug | | | | | | level monitoring | | + +------+--------+ + + documented as of this encounter Visit Diagnoses + + | Diagnosis | + + | Essential (primary) hypertension Unspecified essential hypertension | + + | Shortness of breath | + + | Encounter for screening for lipoid disorders Screening for lipoid disorders | + + | alf current use of anticoagulant Encounter for long-term (current) use of | | anticoagulants | + + | Encounter for screening for diseases of the blood and blood-forming organs and certain | | disorders involving the immune mechanism | + + | Chronic atrial fibrillation (HCC) Atrial fibrillation | + + | Encounter for screening for other suspected endocrine disorder | + + | Encounter for therapeutic drug level monitoring Encounter for therapeutic drug | | monitoring | + + documented in this encounter"
--- OUTSIDE RECORDS SUMMARY | ~2019-08-31 | XMS | Encounter Summary ---
Demographics + + + | Address | [address] | | | [place] [address] | + + + | Home Phone | | + + + | Preferred Language | Unknown | + + + | Marital Status | | + + + | Nondenominational Affiliation | 1013 | + + + | Race | Unknown | + + + | Ethnic Group | Unknown | + + + Author + + + | Author | [facility] | | | and [place] | + [...] Team Providers + +------+ + | Care Food Assembler Commissary Kitchen Name | Role | Phone | + +------+ + | Landen Schaffer MD | PCP | | + +------+ + Encounter Details +--------+ + + + + | Date | Type | Department | Care Team | Description | +--------+ + + + + | 05/27/ | Hospital | [facility] | Conversion | Pain | | 2018 | Encounter | CON[address] | [address], | | | | [address] | Provider Unknown | | | | | [place] | [phone] | | | | | [address] | | | | | | [phone] | | | +--------+ + + + [...] at Time of Discharge + + + +---------+--------+ + | Medication | Sig | Dispensed | Refills | Start | End Date | | | | | | Date | | + + + +---------+--------+ + | albuterol | Inhale 2 puffs into | | 0 | | | | (VENTOLIN HFA) 90 | the lungs every 6 | | | | | | mcg/puff inhaler | hours as needed for | | | | | | | Wheezing. | | | | | + + + +---------+--------+ + | omeprazole | Take 20 mg by mouth | | 0 | | | | (PRILOSEC) 20 mg | every morning | | | | | | capsule | (before breakfast). | | | | | + + + +---------+--------+ + | sildenafil | Take 50 mg by mouth | | 0 | | | | (VIAGRA) 50 MG | as needed for | | | | | | tablet | Erectile | | | | | | | Dysfunction. | | | | | + + + +---------+--------+ + | warfarin | Take 4 mg by mouth | | 0 | | | | (COUMADIN) 4 MG | Daily. | | | | | | tablet | | | | | | + + + +---------+--------+ + | fluticasone | Inhale 1 puff into | | 0 | | | | (FLOVENT HFA) 220 | the lungs 2 times | | | | 0 | | mcg/puff inhaler | daily. | | | | | + + + +---------+--------+ + documented as of this encounter Plan [...] [place] | | | | | | [address] | | | | | | | | +--------+ + + + + documented as of this encounter Procedures + +--------+ + + + | Procedure Name | Priori | Date/Time | Associated Diagnosis | Comments | | | ty | | | | + +--------+ + + + | XR CHEST 2 VIEWS | Routin | 02/08/2013 | | Results for this | | | e | 11:49 PM | | procedure are in the | | | | PDT | | results section. | + +--------+ + + + documented in this encounter Results XR Chest 2 Vws (02/08/2013 11:49 PM PDT) + + | Specimen | [...]
--- OUTSIDE RECORDS SUMMARY | ~2019-08-31 | XMS | Encounter Summary ---
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 that his pain is still "way too much to handle", but ambulating independentl y in the halls with no complaints. SBP a little elevated at 150's, Hydralazine given x1. WCT M. End of shift audit complete. Nilsa Clark RN Michele Smith MD - 08/07/2018 5:12 PM PDTFormatting of this note might be different from the carlos gibyron. Progress Notes by Michele Motta MD at 08/07/181711 Author: Michele Motta MD Service: General Surgery Author Type: Physician Filed: 08/07/181717 Date of Service: 08/07/181711 Status: Signed Core Rescuer: Michele Motta MD (Physician) [facility] Service: General Surgery Progress Note Hospital Day: LOS:Hospital Day: 6 Post-Op Day: 4 Days Post-Op SUBJECTIVE Primary issue is pain control. Still requesting IV but only once today. ++flatus. Compla ining of pelvic pain but much less today. OBJECTIVE Vital Signs: Vitals: 08/07/18 1224 BP: (!) 152/92 Pulse: 120 Resp: 18 Temp: 99 F (37.2 C) SpO2: 97% Vitals: 08/07/18 0002 08/07/18 0408 08/07/18 0804 08/07/18 1224 BP: (!) 134/91 124/76 131/84 (!) 152/92 BP Location: Right upper arm Right upper arm Right upper arm Right upper arm Pulse: 100 110 97 120 Resp: 20 16 18 18 Temp: 99 F (37.2 C) 99 F (37.2 C) 99 F (37.2 C) 99 F (37.2 C) TempSrc: Oral Oral Oral Oral SpO2: 94% 94% 98% 97% Weight: Height: Intake/Output Summary (Last 24 hours) at 08/07/181711 Last data filed at 08/07/18 1551 Gross per 24 hour Intake 4232 ml Output 2015 ml Net 2217 ml PHYSICAL afeb vss Off abx CHRISSY's decreased in vol and no gross bile ASSESSMENT Improving but complaining PLAN Labs in AM Trial of PO dilaudid Will DC drain today. Upper medical which has least output. MICHELE MOTTA MD 08/07/2018 5:12 PM onversion Transaction , Provider Unknown - 08/07/2018 5:14 AM PDT Nurse Progress Note by Kassy Corea RN at 08/07/18513 Author: Kassy Corea RN Service: (none) Author Type: Registered Nurse Filed: 08/07/18513 Date of Service: 08/07/18513 Status: Signed Core Rescuer: Kassy Corea RN (Registered Nurse) End of shift chart check complete onver lissa Transaction, Provider Unknown - 08/06/2018 7:44 PM PDT Nurse Progress Note by Radha Lora RN at 08/06/181943 Author: Radha Lora RN Service: (none) Author Type: Registered Nurse Filed: 08/06/181943 Date of Service: 08/06/181943 Status: Signed Core Rescuer: Radha Lora RN (Registered Nurse) End of shift chart check complete. Radha Lora RN 08/06/2018 holo Yan MD - 08/06/2018 11:43 AM PDTFormatting of this note might be different from t he original. Progress Notes by Cholo Sullivan MD at 08/06/18 1143 Author: Cholo Sullivan MD Service: Gastroenterology Author Type: Physician Filed: 08/06/18 1148 Date of Service: 08/06/18 1143 Status: Signed Core Rescuer: Cholo Sullivan MD (Physician) [facility] Service: Gastroenterology Consult Progress Note Hospital Day: LOS: 4 days SUBJECTIVE Patient Summary: Pt is a 62 yo male admitted with abdominal pain. Recently had para esophageal hernia repair. He presented back with pain, possibly peritoneal in origin, and Dr. Motta performed laparascopy. He placed drains which put out small amounts of bile. H NIKI scan was performed today which shows bile leak at left side of the liver. GI is consul dexter to consider CBD stent. Lipase was elevated, consistent with post ERCP pancreatitis. Events Overnight: Patient is still having pain but reports that it is improved. Taki ng less IV pain meds. Is able to better tolerate PO intake. Ambulating in halls. Scheduled Medications budesonide-formoterol 2 puff Inhalation BID furosemide 20 mg Intravenous Once lisinopril 10 mg Oral Daily metoprolol 50 mg Oral Daily Continuous Infusions dextrose 5 % and 0.9 % NaCl + KCl 20 mEq 75 mL/hr at 08/06/18 0450 PRN Medications acetaminophen OR acetaminophen, albuterol, bisacodyl, calcium carbonate, diazepam, diph enhydrAMINE OR diphenhydrAMINE, hydrALAZINE, HYDROmorphone OR HYDROmorphone, iopamid ol, ondansetron OR ondansetron, oxyCODONE OR oxyCODONE, simethicone OBJECTIVE Vital Signs: BP 135/87 (BP Location: Right upper arm) | Pulse 112 | Temp 98.6 F (37 C) (Oral) | R ryan 19 | Ht 1.981 m (6' 6") | Wt 105.4 kg (232 lb 5.8 oz) | SpO2 95% | BMI 26.85 kg/m GENERAL: Well developed, well nourished, in no distress. Appears approximately stated age. HEENT: Normocephalic, atraumatic. EYES: PERRL, sclerae anicteric, no xanthelsasmas MOUTH: Oral mucosae moist, dentition adequate, no lesions noted. NECK: No JVD, lymphadenopathy, thyromegaly, bruits. Carotid pulses are 2+ bilaterally LUNGS: Clear bilaterally, with no rales, rhonchi or wheezing noted, respirations unlabored HEART: Nondisplaced PMI, regular rate and rhythm, S1, S2 normal. No murmurs, rubs or gallop s noted. ABDOMEN: Soft, generalized tenderness, distended. No organomegaly, masses or bruits. Bowel sounds are normal. Drains in place EXTREMITIES: no clubbing, cyanosis or edema. Pulses palpable and equal distally. SKIN: Warm and dry, capillary refill is normal, no lesions. No jaundice. NEUROLOGIC: Awake, alert and oriented x 3. No focal motor deficits. PSYCHIATRIC: Appropriate, affect appears normal DATA Lab Results Component Value Date WBC 15.17 (H) 08/06/2018 HGB 12.0 (L) 08/06/2018 HCT 36.1 (L) 08/06/2018 MCV 97.7 08/06/2018 PLT 230 08/06/2018 Lab Results Component Value Date AST 29 08/05/2018 ALT 54 08/05/2018 BILITOT 0.7 08/05/2018 CREATININE 0.7 08/05/2018 ALB 2.6 (L) 08/05/2018 LIPASE 269 (H) 08/06/2018 Lab Results Component Value Date INR 1.2 07/29/2018 INR 2.1 07/21/2018 INR 1.1 06/22/2018 PROBLEM LIST Principal Problem: Acute postoperative pain of abdomen ASSESSMENT & PLAN 1. Bile Leak- liver chemistries remain normal and minimal drainage from CHRISSY drains 2. Post ERCP pancreatitis- improving slowly, lipase decreasing and almost back to normal. - OK to advance diet - Continue to treat with supportive care, monitor lipase. - Will need EGD in 6-8 weeks to remove CBD stent if symptoms have resolved Thank you for allowing me to participate in the care of this patient. Please don't hesitat e to call with any questions. Cholo Sullivan MD [facility] 08/06/2018 Michele Smith M D - 08/06/2018 10:40 AM PDT Progress Notes by Michele Motta MD at 08/06/18 1040 Author: Micheel Motta MD Service: General Surgery Author Type: Physician Filed: 08/06/18 1044 Date of Service: 08/06/18 104 Status: Signed Core Rescuer: Michele Motta MD (Physician) [facility] Service: General Surgery Progress Note Hospital Day: LOS:Hospital Day: 5 Post-Op Day: 3 Days Post-Op SUBJECTIVE "better" + flatus, able to sleep. Weaning off IV narcotics. OBJECTIVE Vital Signs: Vitals: 08/06/18 0720 BP: (!) 138/93 Pulse: 110 Resp: 18 Temp: SpO2: 98% Vitals: 08/05/18 2322 08/06/18 0243 08/06/1818 08/06/1820 BP: (!) 151/94 (!) 150/94 (!) 140/98 (!) 138/93 BP Location: Right upper arm Right upper arm Right upper arm Right upper arm Pulse: 117 115 120 110 Resp: Temp: 98.8 F (37.1 C) 97.9 F (36.6 C) 98.4 F (36.9 C) TempSrc: Oral Oral Oral SpO2: 92% 95% 98% 98% Weight: Height: Intake/Output Summary (Last 24 hours) at 08/06/18 1040 Last data filed at 08/06/18 1035 Gross per 24 hour Intake 2586 ml Output 1235 ml Net 1351 ml DATA Lab Results Component Value Date/Time WBC 15.17 (H) 08/06/2018 04:45 AM HGB 12.0 (L) 08/06/2018 04:45 AM HCT 36.1 (L) 08/06/2018 04:45 AM PLT 230 08/06/2018 04:45 AM NA 137 08/05/2018 05:14 AM K 3.9 08/05/2018 05:14 AM K 5.0 07/29/2018 07:10 PM CREATININE 0.7 08/05/2018 05:14 AM AST 29 08/05/2018 05:14 AM AST 46 (H) 08/04/2018 01:06 PM AST 28 08/03/2018 04:44 AM ALT 54 08/05/2018 05:14 AM ALT 70 (H) 08/04/2018 01:06 PM ALT 53 08/03/2018 04:44 AM LIPASE 269 (H) 08/06/2018 04:45 AM LIPASE 1,864 (H) 08/05/2018 05:14 AM LIPASE 2,364 (H) 08/04/2018 01:06 PM PHYSICAL afeb BP is improved abd is still distended JPs now match in color- no bile UOP marginal and Dk color ASSESSMENT clinically improving May still be "dry" dk urine etc. PLAN Keep IV fluid Advance diet MICHELE MOTTA MD 08/06/2018 10:40 AM onversion Transaction , Provider Unknown - 08/06/2018 4:29 AM PDT Nurse Progress Note by Kassy Corea RN at 08/06/18428 Author: Kassy Corea RN Service: (none) Author Type: Registered Nurse Filed: 08/06/18428 Date of Service: 08/06/18428 Status: Signed Core Rescuer: Kassy Corea RN (Registered Nurse) End of shift chart check complete. onver lissa Transaction, Provider Unknown - 08/05/2018 6:01 PM PDT Progress Notes by Jimena Zendejas RN at 08/05/181800 Author: Jimena Zendejas RN Service: (none) Author Type: Registered Nurse Filed: 08/05/181800 Date of Service: 08/05/181800 Status: Signed Core Rescuer: Jimena Zendejas RN (Registered Nurse) End of shift chart check complete. onver lissa Transaction, Provider Unknown - 08/05/2018 3:03 PM PDT Case Management by Cece Berry RN at 08/05/18 1503 Author: Cece Berry RN Service: (none) Author Type: Registered Nurse Filed: 08/05/18 1504 Date of Service: 08/05/18 150 Status: Signed Core Rescuer: Cece Berry RN (Registered Nurse) Discharge planning- patient will discharge home when medically ready. CM to continue to fol low clinical course for needs. CECE BERRY RN Case Management [phone] Michele Smith MD - 08/05/2018 1:29 PM PDTFormatting of this note might be different from the carlos ginal. Progress Notes by Michele Motta MD at 08/05/18 1329 Author: Michele Motta MD Service: General Surgery Author Type: Physician Filed: 08/05/18 1333 Date of Service: 08/05/181328 Status: Signed Core Rescuer: Michele Motta MD (Physician) [facility] Service: General Surgery Progress Note Hospital Day: LOS:Hospital Day: 4 Post-Op Day: 2 Days Post-Op SUBJECTIVE Was feeling better but bout of hiccups really set hi back. No flatus and no stool. Pelvis is hurting. OBJECTIVE Vital Signs: Vitals: 08/05/18 1144 BP: (!) 170/96 Pulse: Resp: Temp: SpO2: Vitals: 08/05/18 0735 08/05/18 1140 08/05/18 1142 08/05/18 1144 BP: 172/85 (!) 179/103 (!) 185/107 (!) 170/96 BP Location: Left upper arm Left upper arm Left upper arm Right upper arm Pulse: 115 100 Resp: Temp: 98.2 F (36.8 C) 97.5 F (36.4 C) TempSrc: Oral Oral SpO2: 93% 97% Weight: Height: Intake/Output Summary (Last 24 hours) at 08/05/181328 Last data filed at 08/05/18 1146 Gross per 24 hour Intake 1364 ml Output 2110 ml Net -746 ml DATA Lab Results Component Value Date/Time WBC 14.50 (H) 08/05/2018 05:14 AM HGB 12.1 (L) 08/05/2018 05:14 AM HCT 36.1 (L) 08/05/2018 05:14 AM PLT 229 08/05/2018 05:14 AM NA 137 08/05/2018 05:14 AM K 3.9 08/05/2018 05:14 AM K 5.0 07/29/2018 07:10 PM CREATININE 0.7 08/05/2018 05:14 AM AST 29 08/05/2018 05:14 AM AST 46 (H) 08/04/2018 01:06 PM AST 28 08/03/2018 04:44 AM ALT 54 08/05/2018 05:14 AM ALT 70 (H) 08/04/2018 01:06 PM ALT 53 08/03/2018 04:44 AM LIPASE 1,864 (H) 08/05/2018 05:14 AM LIPASE 2,364 (H) 08/04/2018 01:06 PM PHYSICAL afeb Hypertension persists Abd: No peritonitis JPs very serous and much less bile Pancreatitis (a little) post ERCP. Lipase is some better today No sign of infection except some understandable leukocytosis ASSESSMENT Slow progress PLAN Clear liquid diet Encourage use of PO analgesics Ambulate in ornel[place] DC abx MICHELE MOTTA MD 08/05/2018 1:29 PM assidy Freed PA - 08/05/2018 1:03 PM PDT Progress Notes by RICHA Oropeza at 08/05/181302 Author: RICHA Oropeza Service: Gastroenterology Author Type: Physician Assistan t - Certified Filed: 08/05/182 Date of Service: 08/05/181302 Status: Attested Core Rescuer: RICHA Oropeza (Physician Adult Education Teacher - Certified) Cosigner: Cholo frank MD at 08/05/181942 Attestation signed by Cholo Sullivan MD at 08/05/181942 Above note is reviewed and I agree with the assessment and plan as documented. I performed an interview and personally examined the patient. If any changes were needed, the note was updated and changes were discussed with the author. Said he had a period of time this afternoon with no pain. Had multiple hiccups and pain re turned. Overall, appears improved. Cholo Sullivan MD [facility] Gastroenterology 08/05/2018 [facility] Service: Gastroenterology Consult Progress Note Hospital Day: LOS: 3 days SUBJECTIVE Patient Summary: Pt is a 62 yo male admitted with abdominal pain. Recently had para esophageal hernia repair. He presented back with pain, possibly peritoneal in origin, and Dr. Motta performed laparascopy. He placed drains which put out small amounts of bile. H NIKI scan was performed today which shows bile leak at left side of the liver. GI is consul dexter to consider CBD stent. Still having significant pain. No fever or chills Events Overnight: Lipase was elevated, consistent with post ERCP pancreatitis. Decrea sing today and he is feeling some better. Still NPO. Scheduled Medications budesonide-formoterol 2 puff Inhalation BID cefOXitin 1 g Intravenous Q6H ketorolac 15 mg Intravenous Q6H lisinopril 10 mg Oral Daily metoprolol 50 mg Oral Daily Continuous Infusions dextrose 5 % and 0.9 % NaCl + KCl 20 mEq 75 mL/hr at 08/04/18 2245 PRN Medications acetaminophen OR acetaminophen, albuterol, bisacodyl, calcium carbonate, diazepam, diph enhydrAMINE OR diphenhydrAMINE, hydrALAZINE, HYDROmorphone OR HYDROmorphone, iopamid ol, ondansetron OR ondansetron, oxyCODONE OR oxyCODONE, simethicone OBJECTIVE Vital Signs: BP (!) 170/96 (BP Location: Right upper arm) | Pulse 100 | Temp 97.5 F (36.4 C) (Oral ) | Resp 17 | Ht 1.981 m (6' 6") | Wt 105.4 kg (232 lb 5.8 oz) | SpO2 97% | BMI 26.85 k g/m GENERAL: Well developed, well nourished, in no distress. Appears approximately stated age. HEENT: Normocephalic, atraumatic. EYES: PERRL, sclerae anicteric, no xanthelsasmas MOUTH: Oral mucosae moist, dentition adequate, no lesions noted. NECK: No JVD, lymphadenopathy, thyromegaly, bruits. Carotid pulses are 2+ bilaterally LUNGS: Clear bilaterally, with no rales, rhonchi or wheezing noted, respirations unlabored HEART: Nondisplaced PMI, regular rate and rhythm, S1, S2 normal. No murmurs, rubs or gallop s noted. ABDOMEN: Soft, tender, distended. No organomegaly, masses or bruits. Bowel sounds are lanny l in all 4 quadrants. The abdominal aortic pulsation is not palpable. Drains in place EXTREMITIES: no clubbing, cyanosis or edema. Pulses palpable and equal distally. SKIN: Warm and dry, capillary refill is normal, no lesions. No jaundice. NEUROLOGIC: Awake, alert and oriented x 3. No focal motor deficits. PSYCHIATRIC: Appropriate, affect appears normal DATA Lab Results Component Value Date WBC 14.50 (H) 08/05/2018 HGB 12.1 (L) 08/05/2018 HCT 36.1 (L) 08/05/2018 MCV 97.0 08/05/2018 PLT 229 08/05/2018 Lab Results Component Value Date AST 29 08/05/2018 ALT 54 08/05/2018 BILITOT 0.7 08/05/2018 CREATININE 0.7 08/05/2018 ALB 2.6 (L) 08/05/2018 LIPASE 1,864 (H) 08/05/2018 Lab Results Component Value Date INR 1.2 07/29/2018 INR 2.1 07/21/2018 INR 1.1 06/22/2018 PROBLEM LIST Principal Problem: Acute postoperative pain of abdomen ASSESSMENT & PLAN 1. Post ERCP pancreatitis- improving slowly, lipase decreasing. -Could probably try clear liquids but will await surgery to see him before advancing as I'm not sure what is planned from their standpoint. -Continue to treat with supportive care, monitor lipase. RICHA [facility] Gastroenterology 08/05/2018 onversion Transa ction, Provider Unknown - 08/05/2018 5:17 AM PDT Nurse Progress Note by Nilsa Clark RN at 08/05/18516 Author: Nilsa Clark RN Service: (none) Author Type: Registered Nurse Filed: 08/05/18518 Date of Service: 08/05/18516 Status: Signed Core Rescuer: Nilsa Clark RN (Registered Nurse) SBP doing better over night, but still a bit elevated at 150's, otherwise VSS. Call light w ithin reach and no injuries reported. End of shift audit complete. Nilsa Clark RN onver lissa Transaction, Provider Unknown - 08/04/2018 6:25 PM PDT Progress Notes by Jimena Zendejas RN at 08/04/181 Author: Jimena Zendejas RN Service: (none) Author Type: Registered Nurse Filed: 08/04/181825 Date of Service: 08/04/181824 Status: Signed Core Rescuer: Jimena Zendejas, RN (Registered Nurse) End of shift chart check complete. Ajit urena, RICHA Ervin - 08/04/2018 12:55 PM PDTFormatting of this note might be different from th e original. Progress Notes by RICHA Oropeza at 08/04/18 1255 Author: RICHA Oropeza Service: Gastroenterology Author Type: Physician Assistan t - Certified Filed: 08/04/18 1300 Date of Service: 08/04/18 125 Status: Attested Core Rescuer: RICHA Oropeza (Physician Adult Education Teacher - Certified) Cosigner: Chool frank MD at 08/04/18 165 Attestation signed by Cholo Sullivan MD at 08/04/18 165 Above note is reviewed and I agree with the assessment and plan as documented. I performed an interview and personally examined the patient. If any changes were needed, the note was updated and changes were discussed with the author. Having pain. Lipase consistent with post-ERCP pancreatitis. Continue supportive care. Cholo Sullivan MD [facility] Gastroenterology 08/04/2018 [facility] Service: Gastroenterology Consult Progress Note Hospital Day: LOS: 2 days SUBJECTIVE Patient Summary: Pt is a 62 yo male admitted with abdominal pain. Recently had parae sophageal hernia repair. He presented back with pain, possibly peritoneal in origin, and Dr Ollie Motta performed laparascopy. He placed drains which put out small amounts of bile. HIDA scan was performed today which shows bile leak at left side of the liver. GI is consulted t o consider CBD stent. Still having significant pain. No fever or chills. Events Overnight: ERCP done last night, stent placed. Not doing well today. Extremely uncomfortable. He's having a lot of abdominal pain and distention. Dr. Motta saw this pamela ng and thought he may have an ileus and ordered an Xray. It was normal. He denies nausea. He drank some juice this morning but hasn't felt like drinking/eating anything else. Scheduled Medications budesonide-formoterol 2 puff Inhalation BID cefOXitin 1 g Intravenous Q6H ketorolac 15 mg Intravenous Q6H lisinopril 5 mg Oral Daily metoprolol 50 mg Oral Daily Continuous Infusions dextrose 5 % and 0.9 % NaCl + KCl 20 mEq 75 mL/hr at 08/04/18 0859 PRN Medications acetaminophen OR acetaminophen, albuterol, bisacodyl, calcium carbonate, diazepam, diph enhydrAMINE OR diphenhydrAMINE, hydrALAZINE, HYDROmorphone OR HYDROmorphone, iopamid ol, ondansetron OR ondansetron, oxyCODONE OR oxyCODONE, simethicone OBJECTIVE Vital Signs: BP (!) 174/114 (BP Location: Right upper arm) | Pulse 109 | Temp 98.4 F (36.9 C) (Ora l) | Resp 16 | Ht 1.981 m (6' 6") | Wt 105.4 kg (232 lb 5.8 oz) | SpO2 93% | BMI 26.85 kg/m GENERAL: Well developed, well nourished, in no distress. Appears approximately stated age. HEENT: Normocephalic, atraumatic. EYES: PERRL, sclerae anicteric, no xanthelsasmas MOUTH: Oral mucosae moist, dentition adequate, no lesions noted. NECK: No JVD, lymphadenopathy, thyromegaly, bruits. Carotid pulses are 2+ bilaterally LUNGS: Clear bilaterally, with no rales, rhonchi or wheezing noted, respirations unlabored HEART: Nondisplaced PMI, regular rate and rhythm, S1, S2 normal. No murmurs, rubs or gallop s noted. ABDOMEN: Soft, generalized tenderness, distended. No organomegaly, masses or bruits. Bowel sounds are normal in all 4 quadrants. The abdominal aortic pulsation is not palpable. EXTREMITIES: no clubbing, cyanosis or edema. Pulses palpable and equal distally. SKIN: Warm and dry, capillary refill is normal, no lesions. No jaundice. NEUROLOGIC: Awake, alert and oriented x 3. No focal motor deficits. PSYCHIATRIC: Appropriate, affect appears normal DATA Lab Results Component Value Date WBC 9.29 08/03/2018 HGB 11.4 (L) 08/03/2018 HCT 34.7 (L) 08/03/2018 MCV 98.3 08/03/2018 PLT 150 08/03/2018 Lab Results Component Value Date AST 28 08/03/2018 ALT 53 08/03/2018 BILITOT 1.0 08/03/2018 CREATININE 1.0 08/03/2018 ALB 2.4 (L) 08/03/2018 Lab Results Component Value Date INR 1.2 07/29/2018 INR 2.1 07/21/2018 INR 1.1 06/22/2018 PROBLEM LIST Principal Problem: Acute postoperative pain of abdomen ASSESSMENT & PLAN Bile leak -S/P ERCP with stent placement -Having a lot of abdominal pain and bloating, likely related to gas but will check labs inc luding lipase to r/o pancreatitis -Other recommendations per surgery team RICHA [facility] Gastroenterology 08/04/2018 Michele Smith MD - 08/04/2018 8:40 AM PDT Progress Notes by Michele Motta MD at 08/04/18 0840 Author: Michele Motta MD Service: General Surgery Author Type: Physician Filed: 08/04/1850 Date of Service: 08/04/18839 Status: Addendum Core Rescuer: Michele Motta MD (Physician) Related Notes: Original Note by Michele Motta MD (Physician) filed at 08/04/18 0848 [facility] Service: General Surgery Progress Note Hospital Day: LOS:Hospital Day: 3 Post-Op Day: 1 Day Post-Op SUBJECTIVE Very bloated starting about 3 hrs ago. + BM + flatus. OBJECTIVE Vital Signs: Vitals: 08/04/18 0749 BP: (!) 174/103 Pulse: Resp: Temp: SpO2: Vitals: 08/04/18 0727 08/04/18 0734 08/04/18 0745 08/04/18 0749 BP: (!) 181/93 (!) 172/131 (!) 184/99 (!) 174/103 BP Location: Right upper arm Right upper arm Right upper arm Pulse: 83 98 Resp: 18 Temp: 98.4 F (36.9 C) TempSrc: Oral SpO2: 95% Weight: Height: Intake/Output Summary (Last 24 hours) at 08/04/18 0840 Last data filed at 08/04/18 0300 Gross per 24 hour Intake 2654.07 ml Output 1338 ml Net 1316.07 ml DATA Pending CBC (local lab machine is down) PHYSICAL afeb Hypertensive No peritonitis Very distended Drain appears more serous and less bilious since CBD stent ASSESSMENT Distended but less pain complaints - ?ileus due to massive narcotic use over last 48 hrs. Resume toradol q 6hr PLAN Walk in [place] Full liquid diet MICHELE MOTTA MD 08/04/2018 8:40 AM onversion Transaction , Provider Unknown - 08/04/2018 5:51 AM PDT Nurse Progress Note by Shara Tee RN at 08/04/18 4151 Author: Shara Tee RN Service: (none) Author Type: Registered Nurse Filed: 08/04/1852 Date of Service: 08/04/18550 Status: Signed Core Rescuer: Shara Tee RN (Registered Nurse) Pt denies chest pain at this time. Pt has ambulated around unit and passed gas. Pt does rep ort abdominal discomfort. Both CHRISSY's putting out serosang fluid. Dressings are dry and intact , LUQ dressing does have some shadowing. The call light is within reach of the pt. End of sh ift review complete. Shara Tee RN 08/04/18 5:52 AM onver lissa Transaction, Provider Unknown - 08/03/2018 11:59 PM PDT Nurse Progress Note by Nilsa Clark RN at 08/03/18 4539 Author: Nilsa Clark RN Service: (none) Author Type: Registered Nurse Filed: 08/04/18 0000 Date of Service: 08/03/18 948 Status: Signed Core Rescuer: Nilsa Clark RN (Registered Nurse) MOOKIE Olmedo taking over patient care at this time. Nilsa Clark RN 12:00 AM onver lissa Transaction, Provider Unknown - 08/03/2018 11:58 PM PDT Nurse Progress Note by Shara Tee RN at 08/03/182357 Author: Shara Tee RN Service: (none) Author Type: Registered Nurse Filed: 08/04/18 0004 Date of Service: 08/03/182357 Status: Signed Core Rescuer: Shara Tee RN (Registered Nurse) 2335: pt called nurse into room. Pt c/o chest pain; stated this was a "new pain" that he rice s "never felt before." Pt BP 170/120, pt rated chest pain 6/10 and increasing, no increased O2 demands. 2338: called a RAT due to pt c/o chest pain. 2345/2349: pt given IV hydralazine and IV dilaudid. Recent BP 160/92. Pt in bed with eyes c losed. WCTM. onver lissa Transaction, Provider Unknown - 08/03/2018 4:52 PM PDT Nurse Progress Note by Mercedes Clark RN at 08/03/181651 Author: Mercedes Clark RN Service: (none) Author Type: Registered Nurse Filed: 08/03/181651 Date of Service: 08/03/181651 Status: Signed Core Rescuer: Mercedes Clark RN (Registered Nurse) End of shift audit complete. MERCEDES CLARK RN onver lissa Transaction, Provider Unknown - 08/03/2018 4:08 PM PDT Case Management by Cece Berry RN at 08/03/18 486 Author: Cece Berry RN Service: (none) Author Type: Registered Nurse Filed: 08/03/18 1612 Date of Service: 08/03/18 1608 Status: Signed Core Rescuer: Cece Berry RN (Registered Nurse) 08/03/18 1606 Discharge Planning Evaluation Admitting Diagnosis abdominal pain Readmission Yes-within 14 days Reason for readmission post op problem Last discharge disposition Home Needs met at last discharge Yes Picked up discharge Rx medications Yes Started prescribed DC meds Yes Followed up with primary or specialty provider No Understood discharge instructions Yes Assistance available Yes Concerns for meeting needs No Living Arrangements Alone Support Systems Family members;Friends/neighbors Type of Residence Private residence House type Mobile home Steps to enter 2 Independent with ADL's Yes Independent with Mobility Yes Home Care Services No Caregiver after Discharge No Mental Status 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 Introduced myself and exp lained my role in discharge planning. Meet is a 62 year old male who was admitted for abdomi nal pain s/p surgery. He lives alone in a mobile home and is independent at baseline. States that he has a good support system of friends and family. Denies use of home oxygen, dialysis, or home care services. Does take coumadin and follows up at the [facility] coumadin clinic. Does not use DME, but has a cane at home if needed. CM to continue to follow clinical course for needs. Patient's PCP is: Maria Vieira Patient's insurance: Medicare Coverage concerns: no Medication coverage/concerns: no concerns Community resources utilized / needed: TBD Assistance in transportation: Identification of any specific education / training: TBD Barriers to Discharge / Alternative housing needed: not at this time Anticipated DCP: home CECE BERRY RN Case Management [phone] onver lissa Min Provider Unknown - 08/03/2018 10:46 AM PDT Pharmacy Note by Maddi Zeng [facility] at 08/03/18 1046 Author: Maddi Zeng RPH Service: Pharmacy Author Type: Pharmacist Filed: 08/03/18 1046 Date of Service: 08/03/181045 Status: Signed Core Rescuer: Maddi Zeng RPH (Pharmacist) Clinical Pharmacy Note: Renal Monitoring Ht Readings from Last 1 Encounters: 08/02/18 1.981 m (6' 6") Wt Readings from Last 1 Encounters: 08/02/18 98 kg (216 lb) Serum creatinine: 1 mg/dL 08/03/18 0444 Estimated creatinine clearance: 101.6 mL/min Pharmacy dosing for renal function per Dr. Motta At this time no renal dose adjustments are required. No changes made today. Pharmacy will c ontinue monitoring patient for appropriate dosing per renal function. Maddi Zeng RPh 08/03/2018 10:46 AM onver lissa Transaction, Provider Unknown - 08/03/2018 1:40 AM PDT Nurse Progress Note by Haritha Castañeda RN at 08/03/18 014 Author: Haritha Castañeda RN Service: (none) Author Type: Registered Nurse Filed: 08/03/18 0625 Date of Service: 08/03/18139 Status: Signed Core Rescuer: Haritha Castañeda RN (Registered Nurse) No blood or restraints. All applicable protocols followed. All parameters checked. All orde rs released. Chart check done. Pt had a lot of pain when the CHRISSY on R abd was stripped. Pain came down after being medicate d. Pain ramped up again abt 0330- called MD Parris Motta; orders received. Pt able to sleep CHRISSY ds g changed x2 this shift- MD aware. Aguilera output lower than optimal- MD aware. VSS, afebrile no other issues onver lissa Transaction, Provider Unknown - 08/02/2018 3:43 PM PDT Progress Notes by Chuck Avendano RPH at 08/02/18 1543 Author: Chuck Avendano RPH Service: Pharmacy Author Type: Pharmacist Filed: 08/02/18 1543 Date of Service: 08/02/181542 Status: Signed Core Rescuer: Chuck Avendano RPH (Pharmacist) Renal Dosing Monitoring: S: Renal dose monitoring per protocol. O: Estimated Creatinine Clearance: 120.9 mL/min (by C-G formula based on SCr of 0.84 mg/dL) . I/O (mL): -/- Dialysis?: no A: No adjustments needed at this time. P: Pharmacy will continue monitoring patient for appropriate dosing based on renal functio n. Pharmacist: Chuck Avendano PharmFatimah docume nted in this encounter Plan of Treatment +--------+ + + + + | Date | Type | Specialty | Care Team | Description | +--------+ + + + + | 09/03/ | Virtual | Pulmonology | Tristian Foote MD | | | 2019 | Office | | [address] | | | | Visit | | [place] | | | | | | [id number] | | | | | | | | +--------+ + + + + documented as of this encounter Procedures + +--------+ + + + | Procedure Name | Priori | Date/Time | Associated Diagnosis | Comments | | | ty | | | | + +--------+ + + + | EXTERNAL LAB: CBC | Routin | 08/10/2018 | | Results for this | | | e | 5:16 AM | | procedure are in the | | | | PDT | | results section. | + +--------+ + + + | LIPASE | Routin | 08/10/2018 | | Results for this | | | e | 5:16 AM | | procedure are in the | | | | PDT | | results section. | + +--------+ + + + | HEPATIC FUNCTION | Routin | 08/10/2018 | | Results for this | | PANEL | e | 5:16 AM | | procedure are in the | | | | PDT | | results section. | + +--------+ + + + | HISTORICAL | DENG | 08/09/2018 | | Results for this | | MICROBIOLOGY RESULT | | 6:00 PM | | procedure are in the | | | | PDT | | results section. | + +--------+ + + + | CT ABDOMEN PELVIS W | Routin | 08/09/2018 | | Results for this | | CONTRAST | e | 3:25 PM | | procedure are in the | | | | PDT | | results section. | + +--------+ + + + | EXTERNAL LAB: CBC | Routin | 08/09/2018 | | Results for this | | | e | 5:11 AM | | procedure are in the | | | | PDT | | results section. | + +--------+ + + + | COMPREHENSIVE | Routin | 08/09/2018 | | Results for this | | METABOLIC PANEL | e | 5:11 AM | | procedure are in the | | | | PDT | | results section. | + +--------+ + + + | GRAM STAIN | Timed | 08/08/2018 | | Results for this | | | | 9:30 AM | | procedure are in the | | | | PDT | | results section. | + +--------+ + + + | BILIRUBIN, TOTAL, | Timed | 08/08/2018 | | Results for this | | BODY FLUID | | 9:30 AM | | procedure are in the | | | | PDT | | results section. | + +--------+ + + + | EXTERNAL LAB: CBC | Routin | 08/08/2018 | | Results for this | | | e | 4:57 AM | | procedure are in the | | | | PDT | | results section. | + +--------+ + + + | LIPASE | Routin | 08/08/2018 | | Results for this | | | e | 4:57 AM | | procedure are in the | | | | PDT | | results section. | + +--------+ + + + | HEPATIC FUNCTION | Routin | 08/08/2018 | | Results for this | | PANEL | e | 4:57 AM | | procedure are in the | | | | PDT | | results section. | + +--------+ + + + | EXTERNAL LAB: CBC | Routin | 08/06/2018 | | Results for this | | | e | 4:45 AM | | procedure are in the | | | | PDT | | results section. | + +--------+ + + + | LIPASE | Routin | 08/06/2018 | | Results for this | | | e | 4:45 AM | | procedure are in the | | | | PDT | | results section. | + +--------+ + + + | EXTERNAL LAB: CECE | Routin | 08/05/2018 | | Results for this | | | e | 5:14 AM | | procedure are in the | | | | PDT | | results section. | + +--------+ + + + | LIPASE | Routin | 08/05/2018 | | Results for this | | | e | 5:14 AM | | procedure are in the | | | | PDT | | results section. | + +--------+ + + + | COMPREHENSIVE | Routin | 08/05/2018 | | Results for this | | METABOLIC PANEL | e | 5:14 AM | | procedure are in the | | | | PDT | | results section. | + +--------+ + + + | EXTERNAL LAB: CECE | Routin | 08/04/2018 | | Results for this | | | e | 1:06 PM | | procedure are in the | | | | PDT | | results section. | + +--------+ + + + | LIPASE | Routin | 08/04/2018 | | Results for this | | | e | 1:06 PM | | procedure are in the | | | | PDT | | results section. | + +--------+ + + + | COMPREHENSIVE | Routin | 08/04/2018 | | Results for this | | METABOLIC PANEL | e | 1:06 PM | | procedure are in the | | | | PDT | | results section. | + +--------+ + + + | XR ABDOMEN 2 VW | Routin | 08/04/2018 | | Results for this | | | e | 11:35 AM | | procedure are in the | | | | PDT | | results section. | + +--------+ + + + | ECG 12 LEAD | Routin | 08/03/2018 | | Results for this | | | e | 11:38 PM | | procedure are in the | | | | PDT | | results section. | + +--------+ + + + | FL ERCP BILIARY AND | Routin | 08/03/2018 | | Results for this | | PANCREATIC | e | 9:37 PM | | procedure are in the | | | | PDT | | results section. | + +--------+ + + + | NM HEPATOBILIARY | Routin | 08/03/2018 | | Results for this | | | e | 12:43 PM | | procedure are in the | | | | PDT | | results section. | + +--------+ + + + | EXTERNAL LAB: CBC | Routin | 08/03/2018 | | Results for this | | | e | 4:44 AM | | procedure are in the | | | | PDT | | results section. | + +--------+ + + + | COMPREHENSIVE | Routin | 08/03/2018 | | Results for this | | METABOLIC PANEL | e | 4:44 AM | | procedure are in the | | | | PDT | | results section. | + +--------+ + + + | CULTURE, BODY FLUID, | Routin | 08/02/2018 | | Results for this | | STERILE, SMEAR, | e | 3:05 PM | | procedure are in the | | WITH ANAEROBES | | PDT | | results section. | + +--------+ + + + | XR ABDOMEN AP | Routin | 08/02/2018 | | Results for this | | | e | 7:28 AM | | procedure are in the | | | | PDT | | results section. | + +--------+ + + + | XR ABDOMEN AP | Routin | 08/02/2018 | | Results for this | | | e | 7:05 AM | | procedure are in the | | | | PDT | | results section. | + +--------+ + + + | EXTERNAL LAB: CBC | Routin | 08/02/2018 | | Results for this | | | e | 4:51 AM | | procedure are in the | | | | PDT | | results section. | + +--------+ + + + | LACTIC ACID | Routin | 08/02/2018 | | Results for this | | | e | 4:51 AM | | procedure are in the | | | | PDT | | results section. | + +--------+ + + + | BASIC METABOLIC | Routin | 08/02/2018 | | Results for this | | PANEL | e | 4:51 AM | | procedure are in the | | | | PDT | | results section. | + +--------+ + + + documented in this encounter Results External Lab: CBC (08/10/2018 5:16 AM PDT) + + + + + + | Component | Value | Ref Range | Performed | Pathologist | | | | | At | Signature | + + + + + + | WBC | 14.89 (H) | 3.80 - 11.00 | EXTERNAL | | | | | K/uL | LAB | | + + + + + + | Red Blood | 3.46 (L) | 4.20 - 5.70 | EXTERNAL | | | Cells | | M/uL | LAB | | | Counted | | | | | + + + + + + | Hemoglobin | 11.3 (L) | 13.2 - 17.0 | EXTERNAL | | | | | g/dL | LAB | | + + + + + + | Hematocrit, | 33.7 (L) | 39.0 - 50.0 % | EXTERNAL | | | POC | | | LAB | | + + + + + + | MCV | 97.2 | 80.0 - 100.0 fl | EXTERNAL | | | | | | LAB | | + + + + + + | MCH | 32.6 | 27.0 - 34.0 pg | EXTERNAL | | | | | | LAB | | + + + + + + | MCHC | 33.5 | 32.0 - 35.5 | EXTERNAL | | | | | g/dL | LAB | | + + + + + + | RDW-CV | 45.9 | 37 - 53 fl | EXTERNAL | | | | | | LAB | | + + + + + + | Platelet | 334 | 150 - 400 K/uL | EXTERNAL | | | Count | | | LAB | | | Plasma | | | | | + + + + + + | MPV | 9.0 | fl | EXTERNAL | | | | | | LAB | | + + + + + + | Differentia | AUTOMATED | | EXTERNAL | | | l Type | | | LAB | | + + + + + + | % Segmented | 79.78 | % | EXTERNAL | | | | | | LAB | | | Neutrophils | | | | | + + + + + + | % | 6.33 | % | EXTERNAL | | | Lymphocytes | | | LAB | | + + + + + + | % Monocytes | 11.03 | % | EXTERNAL | | | | | | LAB | | + + + + + + | % | 2.33 | % | EXTERNAL | | | Eosinophils | | | LAB | | + + + + + + | % Basophils | 0.53 | % | EXTERNAL | | | | | | LAB | | + + + + + + | Absolute | 11.88 (H) | 1.90 - 7.40 | EXTERNAL | | | Segmented | | K/uL | LAB | | | Neutrophils | | | | | + + + + + + | Absolute | 0.94 (L) | 1.00 - 3.90 | EXTERNAL | | | Lymphocytes | | K/uL | LAB | | + + + + + + | Absolute | 1.64 (H) | 0.00 - 0.80 | EXTERNAL | | | Monocytes | | K/uL | LAB | | + + + + + + | Absolute | 0.35 | 0.00 - 0.50 | EXTERNAL | | | Eosinophils | | K/uL | LAB | | + + + + + + | Absolute | 0.08Comment: Testing | 0.00 - 0.10 | EXTERNAL | | | Basophils | performed at [facility], [address] | LAB | | | | [address], | | | | | | [place] [address] | | | | + + + + + + + + | Specimen | + + | Blood specimen | | (specimen) | + + + +---------+ + + | Performing | Address | City/State/Zipcode | Phone Number | | Organization | | | | + +---------+ + + | EXTERNAL LAB | | | | + +---------+ + + Lipase (08/10/2018 5:16 AM PDT) + + + + + + | Component | Value | Ref Range | Performed | Pathologist | | | | | At | Signature | + + + + + + | Lipase | 39Comment: Testing | 12 - 53 U/L | EXTERNAL | | | | performed at [facility] [place] | [address] | | | [address];[place], [place] | | | | | | [address] | | | | + + + + + + + + | Specimen | + + | Blood specimen | | (specimen) | + + + +---------+ + + | Performing | Address | City/State/Zipcode | Phone Number | | Organization | | | | + +---------+ + + | EXTERNAL LAB | | | | + +---------+ + + Hepatic Function Panel (08/10/2018 5:16 AM PDT) + + + + + + | Component | Value | Ref Range | Performed | Pathologist | | | | | At | Signature | + + + + + + | Protein, | 5.2 (L) | 6.3 - 8.2 g/dL | EXTERNAL | | | Total | | | LAB | | + + + + + + | Albumin | 2.0 (L) | 3.3 - 4.8 g/dL | EXTERNAL | | | | | | LAB | | + + + + + + | Bilirubin | 0.6 | 0.1 - 1.5 mg/dL | EXTERNAL | | | Total | | | LAB | | + + + + + + | Bilirubin | 0.3 | 0.0 - 0.3 mg/dL | EXTERNAL | | | Direct | | | LAB | | + + + + + + | ALP, | 153 (H) | 35 - 115 U/L | EXTERNAL | | | External | | | LAB | | + + + + + + | AST | 66 (H) | 10 - 45 U/L | EXTERNAL | | | | | | LAB | | + + + + + + | ALT | 92 (H)Comment: Testing | 10 - 65 U/L | EXTERNAL | | | | performed at [facility], [address] | | LAB | | | | [address], | | | | | | [place] [address] | | | | + + + + + + + + | Specimen | + + | | + + + +---------+ + + | Performing | Address | City/State/Zipcode | Phone Number | | Organization | | | | + +---------+ + + | EXTERNAL LAB | | | | + +---------+ + + HISTORICAL MICROBIOLOGY RESULT (08/09/2018 6:00 PM PDT) + + | Specimen | + + | | + + + + + | Narrative | Performed At | + + + | [facility] ANTIGEN NEGATIVE TOXIN A | EXTERNAL LAB | | NEGATIVE C DIFF | | | INTERPRETATION Negative for toxigenic C.difficile. | | | Testing performed at [facility] [place] [place] [address];[place] [address] | | + + + + +---------+ + + | Performing | Address | City/State/Zipcode | Phone Number | | Organization | | | | + +---------+ + + | EXTERNAL LAB | | | | + +---------+ + + CT Abdomen Pelvis w Contrast (08/09/2018 3:25 PM PDT) + + | Specimen | + + | | + + + + + | Impressions | Performed At | + + + | 1. Cardiomegaly. 2. Pulmonary fibrosis partially visualized. | | | Interval development of small bilateral effusions left bigger than | | | right 3. Masslike appearance of the GE junction likely representing | | | postsurgical changes of a anti reflux procedure correlate with | | | surgical history. 4. Pancreatitis but no evidence of necrotizing | | | pancreatitis, pancreatic pseudocysts or abscess at this point in time | | | 5. Percutaneous catheter extending into the pelvis possibly | | | representing a a peritoneal dialysis catheter correlate clinically 6. | | | Mild sigmoid diverticulosis Signed by: Pankaj Gonzalez, Colton Sign | | | Date/Time: 08/09/2018 4:50 PM | | + + + + + + | Narrative | Performed At | + + + | CT ABDOMEN AND PELVIS WITH CONTRAST CLINICAL INFORMATION: | | | Abdominal pain, diarrhea, pancreatitis COMPARISON: XR ABDOMEN 2 | | | VIEWS (08/04/2018); XR ERCP (08/03/2018); NM HEPATOBILIARY LEAK / | | | SPHINCTER DYSFUNCTION (08/03/2018); CT ABDOMEN AND PELVIS WITHOUT AND | | | WITH CONTRAST AND ANGIOGRAPHY (08/01/2018); CT CHEST WO CONTRAST | | | (02/11/2018); PROCEDURE: Axial images through the abdomen and pelvis | | | after the administration of 100 ml omnipaque 350 intravenous | | | contrast. Multiplanar reconstructions. At least one of the following | | | CT dose optimization techniques were used: Automated exposure | | | control; Adjustment of mA and/or kV according to patient size; Use of | | | iterative reconstruction technique. FINDINGS: LUNG BASES: Limited | | | view of the lung bases again demonstrate centrilobular and paraseptal | | | emphysema with pulmonary fibrosis and honeycombing in the posterior | | | bases right more so than left. Interval development of bilateral | | | pleural effusion measuring 3.25 cm in depth on the left and 1.6 cm in | | | depth on the right. There is mild adjacent compressive | | | atelectasis. Cardiac size is mildly generous normal size pulmonary | | | vascularity without overt failure. Previously there was a large | | | hiatal hernia seen decreased in size however there is a masslike area | | | within the gastroesophageal junction this likely represents anti | | | reflux surgical procedure such is a Miguel A fundoplication. Correlate | | | with surgical history. ABDOMEN Liver and Biliary: Small | | | pneumobilia primarily in the left lobe. No enhancing masses within | | | the liver. No intrahepatic biliary dilatation. Gallbladder is | | | surgically absent. Pancreas, Spleen and Adrenals: Pancreas it shows | | | enhancement throughout the parenchyma surrounding infiltrative | | | changes adjacent to the pancreas a consistent with pancreatitis. | | | There main pancreatic duct is visible measuring 2 mm in diameter no | | | evidence of mass or Lisa pancreatic fluid collections. Spleen and | | | adrenal glands are normal in appearance. Kidneys: No hydronephrosis, | | | calculus or solid renal mass. ABDOMEN AND PELVIS Bowel: No small | | | bowel or colonic dilation or adjacent inflammation. No appendiceal | | | dilation or inflammation. Mild sigmoid diverticulosis but no | | | evidence of diverticulitis. Vessels: No significant abnormality in | | | the aorta or its proximal branches. No significant abnormality in the | | | portal veins, mesenteric veins or systemic veins. Lymph Nodes: No | | | adenopathy. Peritoneum and Retroperitoneum: No ascites or free air. | | | No significant retroperitoneal abnormality. There is a catheter | | | that enters from the right anterior abdominal wall extends into the | | | pelvis may represent a peritoneal dialysis catheter. Correlate | | | clinically PELVIS Genitourinary: Distal ureters and bladder appear | | | normal. No pelvic masses. BODY WALL Soft Tissues: No bowel or | | | inflamed fat containing hernia, mass or hemorrhage. Bones: No acute | | | fracture or vertebral end plate destruction. No lytic or blastic | | | lesion. | | + + + + + | Procedure Note | + + | Perfecto, Rad Conversion - 11/29/2018 8:[address] ABDOMEN AND PELVIS WITH CONTRAST | | CLINICAL INFORMATION: | | Abdominal pain, diarrhea, pancreatitis | | COMPARISON: | | XR ABDOMEN 2 VIEWS (08/04/2018); XR ERCP (08/03/2018); NM HEPATOBILIARY | | LEAK / SPHINCTER DYSFUNCTION (08/03/2018); CT ABDOMEN AND PELVIS WITHOUT | | AND WITH CONTRAST AND ANGIOGRAPHY (08/01/2018); CT CHEST WO CONTRAST | | (02/11/2018); | | PROCEDURE: | | Axial images through the abdomen and pelvis after the administration of | | 100 ml omnipaque 350 intravenous contrast. Multiplanar reconstructions. | | At least one of the following CT dose optimization techniques were | | used: Automated exposure control; Adjustment of mA and/or kV according | | to patient size; Use of iterative reconstruction technique. | | FINDINGS: | | LUNG BASES: Limited view of the lung bases again demonstrate | | centrilobular and paraseptal emphysema with pulmonary fibrosis and | | honeycombing in the posterior bases right more so than left. Interval | | development of bilateral pleural effusion measuring 3.25 cm in depth on | | the left and 1.6 cm in depth on the right. There is mild adjacent | | compressive atelectasis. Cardiac size is mildly generous normal size | | pulmonary vascularity without overt failure. Previously there was a | | large hiatal hernia seen decreased in size however there is a masslike | | area within the gastroesophageal junction this likely represents anti | | reflux surgical procedure such is a Miguel A fundoplication. Correlate | | with surgical history. | | ABDOMEN | | Liver and Biliary: Small pneumobilia primarily in the left lobe. No | | enhancing masses within the liver. No intrahepatic biliary dilatation. | | Gallbladder is surgically absent. | | Pancreas, Spleen and Adrenals: Pancreas it shows enhancement throughout | | the parenchyma surrounding infiltrative changes adjacent to the | | pancreas a consistent with pancreatitis. There main pancreatic duct is | | visible measuring 2 mm in diameter no evidence of mass or Lisa | | pancreatic fluid collections. Spleen and adrenal glands are normal in | | appearance. | | Kidneys: No hydronephrosis, calculus or solid renal mass. | | ABDOMEN AND PELVIS | | Bowel: No small bowel or colonic dilation or adjacent inflammation. No | | appendiceal dilation or inflammation. Mild sigmoid diverticulosis but | | no evidence of diverticulitis. | | Vessels: No significant abnormality in the aorta or its proximal | | branches. No significant abnormality in the portal veins, mesenteric | | veins or systemic veins. | | Lymph Nodes: No adenopathy. | | Peritoneum and Retroperitoneum: No ascites or free air. No significant | | retroperitoneal abnormality. There is a catheter that enters from the | | right anterior abdominal wall extends into the pelvis may represent a | | peritoneal dialysis catheter. Correlate clinically | | PELVIS | | Genitourinary: Distal ureters and bladder appear normal. No pelvic | | masses. | | BODY WALL | | Soft Tissues: No bowel or inflamed fat containing hernia, mass or | | hemorrhage. | | Bones: No acute fracture or vertebral end plate destruction. No lytic | | or blastic lesion. | | IMPRESSION: | | 1. Cardiomegaly. | | 2. Pulmonary fibrosis partially visualized. Interval development of | | small bilateral effusions left bigger than right | | 3. Masslike appearance of the GE junction likely representing | | postsurgical changes of a anti reflux procedure correlate with surgical | | history. | | 4. Pancreatitis but no evidence of necrotizing pancreatitis, pancreatic | | pseudocysts or abscess at this point in time | | 5. Percutaneous catheter extending into the pelvis possibly | | representing a a peritoneal dialysis catheter correlate clinically | | 6. Mild sigmoid diverticulosis | | Signed by: Pankaj Gonzalez, Col[place] | | Sign Date/Time: 08/09/2018 4:50 PM | + + External Lab: CBC (08/09/2018 5:11 AM PDT) + + + + + + | Component | Value | Ref Range | Performed | Pathologist | | | | | At | Signature | + + + + + + | WBC | 17.61 (H) | 3.80 - 11.00 | EXTERNAL | | | | | K/uL | LAB | | + + + + + + | Red Blood | 3.76 (L) | 4.20 - 5.70 | EXTERNAL | | | Cells | | M/uL | LAB | | | Counted | | | | | + + + + + + | Hemoglobin | 12.1 (L) | 13.2 - 17.0 | EXTERNAL | | | | | g/dL | LAB | | + + + + + + | Hematocrit, | 36.8 (L) | 39.0 - 50.0 % | EXTERNAL | | | POC | | | LAB | | + + + + + + | MCV | 98.0 | 80.0 - 100.0 fl | EXTERNAL | | | | | | LAB | | + + + + + + | MCH | 32.2 | 27.0 - 34.0 pg | EXTERNAL | | | | | | LAB | | + + + + + + | MCHC | 32.8 | 32.0 - 35.5 | EXTERNAL | | | | | g/dL | LAB | | + + + + + + | RDW-CV | 46.8 | 37 - 53 fl | EXTERNAL | | | | | | LAB | | + + + + + + | Platelet | 336 | 150 - 400 K/uL | EXTERNAL | | | Count | | | LAB | | | Plasma | | | | | + + + + + + | MPV | 9.1 | fl | EXTERNAL | | | | | | LAB | | + + + + + + | Differentia | AUTOMATED | | EXTERNAL | | | l Type | | | LAB | | + + + + + + | % Segmented | 80.21 | % | EXTERNAL | | | | | | LAB | | | Neutrophils | | | | | + + + + + + | % | 5.54 | % | EXTERNAL | | | Lymphocytes | | | LAB | | + + + + + + | % Monocytes | 10.86 | % | EXTERNAL | | | | | | LAB | | + + + + + + | % | 2.98 | % | EXTERNAL | | | Eosinophils | | | LAB | | + + + + + + | % Basophils | 0.41 | % | EXTERNAL | | | | | | LAB | | + + + + + + | Absolute | 14.12 (H) | 1.90 - 7.40 | EXTERNAL | | | Segmented | | K/uL | LAB | | | Neutrophils | | | | | + + + + + + | Absolute | 0.98 (L) | 1.00 - 3.90 | EXTERNAL | | | Lymphocytes | | K/uL | LAB | | + + + + + + | Absolute | 1.91 (H) | 0.00 - 0.80 | EXTERNAL | | | Monocytes | | K/uL | LAB | | + + + + + + | Absolute | 0.53 (H) | 0.00 - 0.50 | EXTERNAL | | | Eosinophils | | K/uL | LAB | | + + + + + + | Absolute | 0.07Comment: Testing | 0.00 - 0.10 | EXTERNAL | | | Basophils | performed at [facility], [address] | [address] | LAB | | | | [address], | | | | | | [place] [address] | | | | + + + + + + + + | Specimen | + + | Blood specimen | | (specimen) | + + + +---------+ + + | Performing | Address | City/State/Zipcode | Phone Number | | Organization | | | | + +---------+ + + | EXTERNAL LAB | | | | + +---------+ + + Comprehensive Metabolic Panel (08/09/2018 5:11 AM PDT) + + + + + + | Component | Value | Ref Range | Performed | Pathologist | | | | | At | Signature | + + + + + + | Na | 139 | 135 - 145 | EXTERNAL | | | | | mmol/L | LAB | | + + + + + + | K | 3.6 | 3.5 - 4.9 | EXTERNAL | | | | | mmol/L | LAB | | + + + + + + | Cl | 106 | 99 - 109 mmol/L | EXTERNAL | | | | | | LAB | | + + + + + + | CO2 | 25 | 23 - 32 mmol/L | EXTERNAL | | | | | | LAB | | + + + + + + | Anion Gap | 12 | 5 - 20 mmol/L | EXTERNAL | | | | | | LAB | | + + + + + + | Glucose, | 97 | 65 - 99 mg/dL | EXTERNAL | | | Fasting | | | LAB | | + + + + + + | BUN | 7 (L) | 8 - 25 mg/dL | EXTERNAL | | | | | | LAB | | + + + + + + | Creatinine | 0.8 | 0.70 - 1.30 | EXTERNAL | | | | | mg/dL | LAB | | + + + + + + | BUN/Creatin | 9 | | EXTERNAL | | | ine Ratio | | | LAB | | + + + + + + | Calcium | 8.6 | 8.5 - 10.5 | EXTERNAL | | | | | mg/dL | LAB | | + + + + + + | Protein, | 5.8 (L) | 6.3 - 8.2 g/dL | EXTERNAL | | | Total | | | LAB | | + + + + + + | Albumin | 2.4 (L) | 3.3 - 4.8 g/dL | EXTERNAL | | | | | | LAB | | + + + + + + | Globulin | 3.4 | 1.3 - 4.9 g/dL | EXTERNAL | | | | | | LAB | | + + + + + + | A/G Ratio | 0.7 (L) | 1.0 - 2.4 | EXTERNAL | | | | | | LAB | | + + + + + + | Bilirubin | 0.8 | 0.1 - 1.5 mg/dL | EXTERNAL | | | Total | | | LAB | | + + + + + + | ALP, | 190 (H) | 35 - 115 U/L | EXTERNAL | | | External | | | LAB | | + + + + + + | AST | 75 (H) | 10 - 45 U/L | EXTERNAL | | | | | | LAB | | + + + + + + | ALT | 97 (H) | 10 - 65 U/L | EXTERNAL | | | | | [...] | | | | | performed at [facility], [address] | | | | | | [address], | | | | | | [place] [address] | | | | + + + + + + + + | Specimen | + + | Blood specimen | | (specimen) | + + + +---------+ + + | Performing | Address | City/State/Zipcode | Phone Number | | Organization | | | | + +---------+ + + | EXTERNAL LAB | | | | + +---------+ + + Gram Stain (08/08/2018 9:30 AM PDT) + + | Specimen | + + | | + + + + + | Narrative | Performed At | + + + | Specimen Description OTHER CULTURE | EXTERNAL LAB | | 2+ | | | WBC'S SEEN | | | NO ORGANISMS SEEN | | + + + + +---------+ + + | Performing | Address | City/State/Zipcode | Phone Number | | Organization | | | | + +---------+ + + | EXTERNAL LAB | | | | + +---------+ + + Bilirubin, Total, Body Fluid (08/08/2018 9:30 AM PDT) + + | Specimen | + + | Body fluid sample | | (specimen) | + + + + + | Narrative | Performed At | + + + | FLUID BILIRUBIN 1.0 This is | EXTERNAL LAB | | not a stock car driver validated sample type for this method. No reference | | | ranges have been established. Testing performed at [facility], [address] | | | [place] [address] | | + + + + +---------+ + + | Performing | Address | City/State/Zipcode | Phone Number | | Organization | | | | + +---------+ + + | EXTERNAL LAB | | | | + +---------+ + + External Lab: CBC (08/08/2018 4:57 AM PDT) + + + + + + | Component | Value | Ref Range | Performed | Pathologist | | | | | At | Signature | + + + + + + | WBC | 14.18 (H) | 3.80 - 11.00 | EXTERNAL | | | | | K/uL | LAB | | + + + + + + | Red Blood | 3.59 (L) | 4.20 - 5.70 | EXTERNAL | | | Cells | | M/uL | LAB | | | Counted | | | | | + + + + + + | Hemoglobin | 11.7 (L) | 13.2 - 17.0 | EXTERNAL | | | | | g/dL | LAB | | + + + + + + | Hematocrit, | 34.7 (L) | 39.0 - 50.0 % | EXTERNAL | | | POC | | | LAB | | + + + + + + | MCV | 96.6 | 80.0 - 100.0 fl | EXTERNAL | | | | | | LAB | | + + + + + + | MCH | 32.5 | 27.0 - 34.0 pg | EXTERNAL | | | | | | LAB | | + + + + + + | MCHC | 33.6 | 32.0 - 35.5 | EXTERNAL | | | | | g/dL | LAB | | + + + + + + | RDW-CV | 46.8 | 37 - 53 fl | EXTERNAL | | | | | | LAB | | + + + + + + | Platelet | 269 | 150 - 400 K/uL | EXTERNAL | | | Count | | | LAB | | | Plasma | | | | | + + + + + + | MPV | 8.9 | fl | EXTERNAL | | | | | | LAB | | + + + + + + | Differentia | AUTOMATED | | EXTERNAL | | | l Type | | | LAB | | + + + + + + | % Segmented | 78.32 | % | EXTERNAL | | | | | | LAB | | | Neutrophils | | | | | + + + + + + | % | 6.21 | % | EXTERNAL | | | Lymphocytes | | | LAB | | + + + + + + | % Monocytes | 11.99 | % | EXTERNAL | | | | | | LAB | | + + + + + + | % | 3.10 | % | EXTERNAL | | | Eosinophils | | | LAB | | + + + + + + | % Basophils | 0.38 | % | EXTERNAL | | | | | | LAB | | + + + + + + | Absolute | 11.10 (H) | 1.90 - 7.40 | EXTERNAL | | | Segmented | | K/uL | LAB | | | Neutrophils | | | | | + + + + + + | Absolute | 0.88 (L) | 1.00 - 3.90 | EXTERNAL | | | Lymphocytes | | K/uL | LAB | | + + + + + + | Absolute | 1.70 (H) | 0.00 - 0.80 | EXTERNAL | | | Monocytes | | K/uL | LAB | | + + + + + + | Absolute | 0.44 | 0.00 - 0.50 | EXTERNAL | | | Eosinophils | | K/uL | LAB | | + + + + + + | Absolute | 0.05Comment: Testing | 0.00 - 0.10 | EXTERNAL | | | Basophils | performed at [facility], [address] | [address] | LAB | | | | [address], | | | | | | [place] [address] | | | | + + + + + + + + | Specimen | + + | Blood specimen | | (specimen) | + + + +---------+ + + | Performing | Address | City/State/Zipcode | Phone Number | | Organization | | | | + +---------+ + + | EXTERNAL LAB | | | | + +---------+ + + Lipase (08/08/2018 4:57 AM PDT) + + + + + + | Component | Value | Ref Range | Performed | Pathologist | | | | | At | Signature | + + + + + + | Lipase | 45Comment: Testing | 12 - 53 U/L | EXTERNAL | | | | performed at [facility] [place] | | LAB | | | | [address];[place] | | | | | | [address] | | | | + + + + + + + + | Specimen | + + | Blood specimen | | (specimen) | + + + +---------+ + + | Performing | Address | City/State/Zipcode | Phone Number | | Organization | | | | + +---------+ + + | EXTERNAL LAB | | | | + +---------+ + + Hepatic Function Panel (08/08/2018 4:57 AM PDT) + + + + + + | Component | Value | Ref Range | Performed | Pathologist | | | | | At | Signature | + + + + + + | Protein, | 5.4 (L) | 6.3 - 8.2 g/dL | EXTERNAL | | | Total | | | LAB | | + + + + + + | Albumin | 2.2 (L) | 3.3 - 4.8 g/dL | EXTERNAL | | | | | | LAB | | + + + + + + | Bilirubin | 1.4 | 0.1 - 1.5 mg/dL | EXTERNAL | | | Total | | | LAB | | + + + + + + | Bilirubin | 0.6 (H) | 0.0 - 0.3 mg/dL | EXTERNAL | | | Direct | | | LAB | | + + + + + + | ALP, | 176 (H) | 35 - 115 U/L | EXTERNAL | | | External | | | LAB | | + + + + + + | AST | 59 (H) | 10 - 45 U/L | EXTERNAL | | | | | | LAB | | + + + + + + | ALT | 69 (H)Comment: Testing | 10 - 65 U/L | EXTERNAL | | | | performed at [facility], [address] | | LAB | | | | [address], | | | | | | [place] [address] | | | | + + + + + + + + | Specimen | + + | | + + + +---------+ + + | Performing | Address | City/State/Zipcode | Phone Number | | Organization | | | | + +---------+ + + | EXTERNAL LAB | | | | + +---------+ + + External Lab: CBC (08/06/2018 4:45 AM PDT) + + + + + + | Component | Value | Ref Range | Performed | Pathologist | | | | | At | Signature | + + + + + + | WBC | 15.17 (H) | 3.80 - 11.00 | EXTERNAL | | | | | K/uL | LAB | | + + + + + + | Red Blood | 3.70 (L) | 4.20 - 5.70 | EXTERNAL | | | Cells | | M/uL | LAB | | | Counted | | | | | + + + + + + | Hemoglobin | 12.0 (L) | 13.2 - 17.0 | EXTERNAL | | | | | g/dL | LAB | | + + + + + + | Hematocrit, | 36.1 (L) | 39.0 - 50.0 % | EXTERNAL | | | POC | | | LAB | | + + + + + + | MCV | 97.7 | 80.0 - 100.0 fl | EXTERNAL | | | | | | LAB | | + + + + + + | MCH | 32.5 | 27.0 - 34.0 pg | EXTERNAL [...] + + + + | Platelet | 230 | 150 - 400 K/uL | EXTERNAL | | | Count | | | LAB | | | Plasma | | | | | + + + + + + | MPV | 9.6 | fl | EXTERNAL | | | | | | LAB | | + + + + + + | Differentia | AUTOMATED | | EXTERNAL | | | l Type | | | LAB | | + + + + + + | % Segmented | 77.56 | % | EXTERNAL | | | | | | LAB | | | Neutrophils | | | | | + + + + + + | % | 5.53 | % | EXTERNAL | | | Lymphocytes | | | LAB | | + + + + + + | % Monocytes | 15.91 | % | EXTERNAL | | | | | | LAB | | + + + + + + | % | 0.78 | % | EXTERNAL | | | Eosinophils | | | LAB | | + + + + + + | % Basophils | 0.22 | % | EXTERNAL | | | | | | LAB | | + + + + + + | Absolute | 11.77 (H) | 1.90 - 7.40 | EXTERNAL | | | Segmented | | K/uL | LAB | | | Neutrophils | | | | | + + + + + + | Absolute | 0.84 (L) | 1.00 - 3.90 | EXTERNAL | | | Lymphocytes | | K/uL | LAB | | + + + + + + | Absolute | 2.41 (H) | 0.00 - 0.80 | EXTERNAL | | | Monocytes | | K/uL | LAB | | + + + + + + | Absolute | 0.12 | 0.00 - 0.50 | EXTERNAL | | | Eosinophils | | K/uL | LAB | | + + + + + + | Absolute | 0.03Comment: Testing | 0.00 - 0.10 | EXTERNAL | | | Basophils | performed at [facility], [address] | [address] | LAB | | | | [address], | | | | | | [place] [address] | | | | + + + + + + + + | Specimen | + + | Blood specimen | | (specimen) | + + + +---------+ + + | Performing | Address | City/State/Zipcode | Phone Number | | Organization | | | | + +---------+ + + | EXTERNAL LAB | | | | + +---------+ + + Lipase (08/06/2018 4:45 AM PDT) + + + + + + | Component | Value | Ref Range | Performed | Pathologist | | | | | At | Signature | + + + + + + | Lipase | 269 (H)Comment: Testing | 12 - 53 U/L | EXTERNAL | | | | performed at [facility] [place] | | LAB | | | | [facility];[place], [place] | | | | | | [address] | | | | + + + [...] + +---------+ + + External Lab: CBC (08/05/2018 5:14 AM PDT) + + + + + + | Component | Value | Ref Range | Performed | Pathologist | | | | | At | Signature | + + + + + + | WBC | 14.50 (H) | 3.80 - 11.00 | EXTERNAL | | | | | K/uL | LAB | | + + + + + + | Red Blood | 3.72 (L) | 4.20 - 5.70 | EXTERNAL | | | Cells | | M/uL | LAB | | | Counted | | | | | + + + + + + | Hemoglobin | 12.1 (L) | 13.2 - 17.0 | EXTERNAL | | | | | g/dL | LAB | | + + + + + + | Hematocrit, | 36.1 (L) | 39.0 - 50.0 % | EXTERNAL | | | POC | | | LAB | | + + + + + + | MCV | 97.0 | 80.0 - 100.0 fl | EXTERNAL | | | | | | LAB | | + + + + + + | MCH | 32.7 | 27.0 - 34.0 pg | EXTERNAL | | | | | | LAB | | + + + + + + | MCHC | 33.7 | 32.0 - 35.5 | EXTERNAL | | | | | g/dL | LAB | | + + + + + + | RDW-CV | 45.9 | 37 - 53 fl | EXTERNAL | | | | | | LAB | | + + + + + + | Platelet | 229 | 150 - 400 K/uL | EXTERNAL | | | Count | | | LAB | | | Plasma | | | | | + + + + + + | MPV | 9.5 | fl | EXTERNAL | | | | | | LAB | | + + + + + + | Differentia | AUTOMATED | | EXTERNAL | | | l Type | | | LAB | | + + + + + + | % Segmented | 81.26 | % | EXTERNAL | | | | | | LAB | | | Neutrophils | | | | | + + + + + + | % | 6.42 | % | EXTERNAL | | | Lymphocytes | | | LAB | | + + + + + + | % Monocytes | 11.40 | % | EXTERNAL | | | | | | LAB | | + + + + + + | % | 0.71 | % | EXTERNAL | | | Eosinophils | | | LAB | | + + + + + + | % Basophils | 0.21 | % | EXTERNAL | | | | | | LAB | | + + + + + + | Absolute | 11.78 (H) | 1.90 - 7.40 | EXTERNAL | | | Segmented | | K/uL | LAB | | | Neutrophils | | | | | + + + + + + | Absolute | 0.93 (L) | 1.00 - 3.90 | EXTERNAL | | | Lymphocytes | | K/uL | LAB | | + + + + + + | Absolute | 1.65 (H) | 0.00 - 0.80 | EXTERNAL | | | Monocytes | | K/uL | LAB | | + + + + + + | Absolute | 0.10 | 0.00 - 0.50 | EXTERNAL | | | Eosinophils | | K/uL | LAB | | + + + + + + | Absolute | 0.03Comment: Testing | 0.00 - 0.10 | EXTERNAL | | | Basophils | performed at [facility], [address] | [address] | LAB | | | | [address], | | | | | | [place] [address] | | | | + + + + + + + + | Specimen | + + | Blood specimen | | (specimen) | + + + +---------+ + + | Performing | Address | City/State/Zipcode | Phone Number | | Organization | | | | + +---------+ + + | EXTERNAL LAB | | | | + +---------+ + + Lipase (08/05/2018 5:14 AM PDT) + + + + + + | Component | Value | Ref Range | Performed | Pathologist | | | | | At | Signature | + + + + + + | Lipase | 1,864 (H)Comment: | 12 - 53 U/L | EXTERNAL | | | | Testing performed at | | LAB | | | | [facility] [place] [facility] | | | | | | [address];[place] [address] | | | | + + + + + + + + | Specimen | + + | Blood specimen | | (specimen) | + + + +---------+ + + | Performing | Address | City/State/Zipcode | Phone Number | | Organization | | | | + +---------+ + + | EXTERNAL LAB | | | | + +---------+ + + Comprehensive Metabolic Panel (08/05/2018 5:14 AM PDT) + + + + + + | Component | Value | Ref Range | Performed | Pathologist | | | | | At | Signature | + + + + + + | Na | 137 | 135 - 145 | EXTERNAL | | | | | mmol/L | LAB | | + + + + + + | K | 3.9 | 3.5 - 4.9 | EXTERNAL | | | | | mmol/L | LAB | | + + + + + + | Cl | 105 | 99 - 109 mmol/L | EXTERNAL | | | | | | LAB | | + + + + + + | CO2 | 24 | 23 - 32 mmol/L | EXTERNAL | | | | | | LAB | | + + + + + + | Anion Gap | 12 | 5 - 20 mmol/L | EXTERNAL | | | | | | LAB | | + + + + + + | Glucose, | 92 | 65 - 99 mg/dL | EXTERNAL | | | Fasting | | | LAB | | + + + + + + | BUN | 14 | 8 - 25 mg/dL | EXTERNAL | | | | | | LAB | | + + + + + + | Creatinine | 0.7 | 0.70 - 1.30 | EXTERNAL | | | | | mg/dL | LAB | | + + + + + + | BUN/Creatin | 20 | | EXTERNAL | | | ine Ratio | | | LAB | | + + + + + + | Calcium | 8.7 | 8.5 - 10.5 | EXTERNAL | | | | | mg/dL | LAB | | + + + + + + | Protein, | 5.7 (L) | 6.3 - 8.2 g/dL | EXTERNAL | | | Total | | | LAB | | + + + + + + | Albumin | 2.6 (L) | 3.3 - 4.8 g/dL | EXTERNAL | | | | | | LAB | | + + + + + + | Globulin | 3.1 | 1.3 - 4.9 g/dL | EXTERNAL | | | | | | LAB | | + + + + + + | A/G Ratio | 0.8 (L) | 1.0 - 2.4 | EXTERNAL | | | | | | LAB | | + + + + + + | Bilirubin | 0.7 | 0.1 - 1.5 mg/dL | EXTERNAL | | | Total | | | LAB | | + + + + + + | ALP, | 97 | 35 - 115 U/L | EXTERNAL | | | External | | | LAB | | + + + + + + | AST | 29 | 10 - 45 U/L | EXTERNAL | | | | | | LAB | | + + + + + + | ALT | 54 | 10 - 65 U/L | EXTERNAL | | | | | [...] | | | | | performed at [facility], [address] | | | | | | [facility], | | | | | | [place] [address] | | | | + + + [...] + +---------+ + + External Lab: CBC (08/04/2018 1:06 PM PDT) + + + + + + | Component | Value | Ref Range | Performed | Pathologist | | | | | At | Signature | + + + + + + | WBC | 11.59 (H) | 3.80 - 11.00 | EXTERNAL | | | | | K/uL | LAB | | + + + + + + | Red Blood | 4.43 | 4.20 - 5.70 | EXTERNAL | | | Cells | | M/uL | LAB | | | Counted | | | | | + + + + + + | Hemoglobin | 14.4 | 13.2 - 17.0 | EXTERNAL | | | | | g/dL | LAB | | + + + + + + | Hematocrit, | 43.6 | 39.0 - 50.0 % | EXTERNAL | | | POC | | | LAB | | + + + + + + | MCV | 98.4 | 80.0 - 100.0 fl | EXTERNAL | | | | | | LAB | | + + + + + + | MCH | 32.5 | 27.0 - 34.0 pg | EXTERNAL | | | | | | LAB | | + + + + + + | MCHC | 33.1 | 32.0 - 35.5 | EXTERNAL | | | | | g/dL | LAB | | + + + + + + | RDW-CV | 46.4 | 37 - 53 fl | EXTERNAL | | | | | | LAB | | + + + + + + | Platelet | 244 | 150 - 400 K/uL | EXTERNAL | | | Count | | | LAB | | | Plasma | | | | | + + + + + + | MPV | 9.9 | fl | EXTERNAL | | | | | | LAB | | + + + + + + | Differentia | AUTOMATED | | EXTERNAL | | | l Type | | | LAB | | + + + + + + | % Segmented | 83.50 | % | EXTERNAL | | | | | | LAB | | | Neutrophils | | | | | + + + + + + | % | 6.22 | % | EXTERNAL | | | Lymphocytes | | | LAB | | + + + + + + | % Monocytes | 9.87 | % | EXTERNAL | | | | | | LAB | | + + + + + + | % | 0.25 | % | EXTERNAL | | | Eosinophils | | | LAB | | + + + + + + | % Basophils | 0.16 | % | EXTERNAL | | | | | | LAB | | + + + + + + | Absolute | 9.68 (H) | 1.90 - 7.40 | EXTERNAL | | | Segmented | | K/uL | LAB | | | Neutrophils | | | | | + + + + + + | Absolute | 0.72 (L) | 1.00 - 3.90 | EXTERNAL | | | Lymphocytes | | K/uL | LAB | | + + + + + + | Absolute | 1.14 (H) | 0.00 - 0.80 | EXTERNAL | | | Monocytes | | K/uL | LAB | | + + + + + + | Absolute | 0.03 | 0.00 - 0.50 | EXTERNAL | | | Eosinophils | | K/uL | LAB | | + + + + + + | Absolute | 0.02Comment: Testing | 0.00 - 0.10 | EXTERNAL | | | Basophils | performed at [facility], [address] | [address] | LAB | | | | [address], | | | | | | [place] [address] | | | | + + + + + + + + | Specimen | + + | Blood specimen | | (specimen) | + + + +---------+ + + | Performing | Address | City/State/Zipcode | Phone Number | | Organization | | | | + +---------+ + + | EXTERNAL LAB | | | | + +---------+ + + Lipase (08/04/2018 1:06 PM PDT) + + + + + + | Component | Value | Ref Range | Performed | Pathologist | | | | | At | Signature | + + + + + + | Lipase | 2,364 (H)Comment: | 12 - 53 U/L | EXTERNAL | | | | Testing performed at | | LAB | | | | [facility] [place] [facility] | | | | | | [facility];[place] [address] | | | | + + + + + + + + | Specimen | + + | Blood specimen | | (specimen) | + + + +---------+ + + | Performing | Address | City/State/Zipcode | Phone Number | | Organization | | | | + +---------+ + + | EXTERNAL LAB | | | | + +---------+ + + Comprehensive Metabolic Panel (08/04/2018 1:06 PM PDT) + + + + + + | Component | Value | Ref Range | Performed | Pathologist | | | | | At | Signature | + + + + + + | Na | 140 | 135 - 145 | EXTERNAL | | | | | mmol/L | LAB | | + + + + + + | K | 4.5 | 3.5 - 4.9 | EXTERNAL | [...] + + + + | Glucose, | 147 (H) | 65 - 99 mg/dL | EXTERNAL | | | Fasting | | | LAB | | + + + + + + | BUN | 14 | 8 - 25 mg/dL | EXTERNAL | | | | | | LAB | | + + + + + + | Creatinine | 0.93 | 0.70 - 1.30 | EXTERNAL | | | | | mg/dL | LAB | | + + + + + + | BUN/Creatin | 15 | | EXTERNAL | | | ine Ratio | | | LAB | | + + + + + + | Calcium | 9.0 | 8.5 - 10.5 | EXTERNAL | | | | | mg/dL | LAB | | + + + + + + | Protein, | 6.6 | 6.3 - 8.2 g/dL | EXTERNAL | | | Total | | | LAB | | + + + + + + | Albumin | 4.4 | 3.3 - 4.8 g/dL | EXTERNAL | | | | | | LAB | | + + + + + + | Globulin | 2.2 | 1.3 - 4.9 g/dL | EXTERNAL | | | | | | LAB | | + + + + + + | A/G Ratio | 2.0 | 1.0 - 2.4 | EXTERNAL | | | | | | LAB | | + + + + + + | Bilirubin | 0.7 | 0.1 - 1.5 mg/dL | EXTERNAL | | | Total | | | LAB | | + + + + + + | ALP, | 114 | 35 - 115 U/L | EXTERNAL | | | External | | | LAB | | + + + + + + | AST | 46 (H) | 10 - 45 U/L | EXTERNAL | | | | | | LAB | | + + + + + + | ALT | 70 (H) | 10 - 65 U/L | EXTERNAL | | | | | [...] | | | | | performed at [facility] [place] | | | | | | [address];[place], [place] | | | | | | [address] | | | | + + + + + + + + | Specimen | + + | Blood specimen | | (specimen) | + + + +---------+ + + | Performing | Address | City/State/Zipcode | Phone Number | | Organization | | | | + +---------+ + + | EXTERNAL LAB | | | | + +---------+ + + XR Abdomen 2 VW (08/04/2018 11:35 AM PDT) + + | Specimen | + + | | + + + + + | Impressions | Performed At | + + + | Bowel not obstructed to the splenic flexure, with fluid level in the | | | stomach, similar across modalities when compared to the recent CT | | | Stable catheter Signed by: Pankaj Castillo, Jai Sign Date/Time: | | | 08/04/2018 11:55 AM | | + + + + + + | Narrative | Performed At | + + + | ABDOMEN TWO VIEWS CLINICAL INFORMATION: Abdominal pain. | | | COMPARISON: NM HEPATOBILIARY LEAK / SPHINCTER DYSFUNCTION | | | (08/03/2018); XR ABDOMEN 1 VIEW (08/02/2018); FINDINGS: Bilobed | | | basilar pleural fluid collections, cardiomegaly and atelectasis or | | | infiltrates. Bowel is not obstructed with some contrast in the large | | | bowel particularly the hepatic flexure. Some fluid levels but not | | | convincing for obstruction. Distal contrast mitigates against | | | obstruction of the splenic flexure There is stable across modalities | | | when compared to the CT scan from yesterday. Oriented about the | | | pelvis, medial right abdomen and superimposed over the stomach. | | + + + + + | Procedure Note | + + | Perfecto, Rad Conversion - 11/29/2018 8:06 PM PDT ABDOMEN TWO VIEWS | | CLINICAL INFORMATION: | | Abdominal pain. | | COMPARISON: | | NM HEPATOBILIARY LEAK / SPHINCTER DYSFUNCTION (08/03/2018); XR ABDOMEN 1 | | VIEW (08/02/2018); | | FINDINGS: | | Bilobed basilar pleural fluid collections, cardiomegaly and atelectasis | | or infiltrates. | | Bowel is not obstructed with some contrast in the large bowel | | particularly the hepatic flexure. Some fluid levels but not convincing | | for obstruction. Distal contrast mitigates against obstruction of the | | splenic flexure | | There is stable across modalities when compared to the CT scan from | | yesterday. Oriented about the pelvis, medial right abdomen and | | superimposed over the stomach. | | IMPRESSION: | | Bowel not obstructed to the splenic flexure, with fluid level in the | | stomach, similar across modalities when compared to the recent CT | | Stable catheter | | Signed by: Pankaj Castillo Timothy | | Sign Date/Time: 08/04/2018 11:55 AM | + + ECG 12 lead (08/03/2018 11:38 PM PDT) + + + + + + | Component | Value | Ref Range | Performed | Pathologist | | | | | At | Signature | + + + + + + | DIAGNOSIS: | Atrial fibrillationRight | | EXTERNAL | | | | bundle branch | | LAB | | | | blockNonspecific ST | | | | | | and/or T wave | | | | | | abnormalitiesAbnormal | | | | | | ECGWhen compared with | | | | | | ECG of 21-JUL-2018 | | | | | | 17:16,No significant | | | | | | change was | | | | | | foundConfirmed by | | | | | | ALEX SEXTON MD ([id number]) | | | | | | on 08/04/2018 7:58:03 AM | | | | + + + + + + + + | Specimen | + + | | + + + + + | Narrative | Performed At | + + + | Historically converted procedure from [facility] | EXTERNAL LAB | + + + + +---------+ + + | Performing | Address | City/State/Zipcode | Phone Number | | Organization | | | | + +---------+ + + | EXTERNAL LAB | | | | + +---------+ + + [facility] (08/03/2018 9:37 PM PDT) + + | Specimen | + + | | + + + + + | Impressions | Performed At | + + + | 1. Successful deployment of a stent into the common bile duct. 2. | | | Leakage of contrast outside the biliary ductal system and bowel lumen | | | noted consistent with the history of known bile leak. Signed by: | | | Morena Napier Edward Sign Date/Time: 08/04/2018 3:06 PM | | + + + + + + | Narrative | Performed At | + + + | [facility] CLINICAL INFORMATION: ECRP. Biliary leak. Recent | | | cholecystectomy. COMPARISON: NM HEPATOBILIARY LEAK / SPHINCTER | | | DYSFUNCTION (08/03/2018); XR ABDOMEN 1 VIEW (08/02/2018); XR ABDOMEN 1 | | | VIEW (08/02/2018); FINDINGS: The gallbladder is surgically absent. | | | A surgical drain is seen in the right upper quadrant. An | | | endoscope is seen within the field of view of all the acquired 7 | | | images. The common bile duct was cannulated and injected with | | | contrast which is filling the hepatic ducts and common bile duct no | | | stricture or choledochocele is seen. A small amount of contrast is | | | seen outside of the biliary ductal system consistent with the | | | patient's known bile leak. The final image demonstrates the | | | deployment of a stent into the common bile duct. Fluoro Time: 4 | | | minutes 24 seconds Total number of images: 7. | | + + + + + | Procedure Note | + + | Perfecto, Rad Conversion - 11/29/2018 8:06 PM PDT [facility] | | CLINICAL INFORMATION: | | ECRP. Biliary leak. Recent cholecystectomy. | | COMPARISON: | | NM HEPATOBILIARY LEAK / SPHINCTER DYSFUNCTION (08/03/2018); XR ABDOMEN 1 | | VIEW (08/02/2018); XR ABDOMEN 1 VIEW (08/02/2018); | | FINDINGS: | | The gallbladder is surgically absent. A surgical drain is seen in the | | right upper quadrant. An endoscope is seen within the field of view of | | all the acquired 7 images. The common bile duct was cannulated and | | injected with contrast which is filling the hepatic ducts and common | | bile duct no stricture or choledochocele is seen. A small amount of | | contrast is seen outside of the biliary ductal system consistent with | | the patient's known bile leak. The final image demonstrates the | | deployment of a stent into the common bile duct. | | Fluoro Time: 4 minutes 24 seconds Total number of images: 7. | | IMPRESSION: | | 1. Successful deployment of a stent into the common bile duct. | | 2. Leakage of contrast outside the biliary ductal system and bowel | | lumen noted consistent with the history of known bile leak. | | Signed by: Morena Napier Edward | | Sign Date/Time: 08/04/2018 3:06 PM | + + NM Hepatobiliary (08/03/2018 12:43 PM PDT) + + | Specimen | + + | | + + + + + | Impressions | Performed At | + + + | *The study is positive for bile leak. *No biliary obstruction. | | | *Status post cholecystectomy. *Bilateral pleural effusions with | | | bibasilar atelectasis and/or consolidation. *Postsurgical changes | | | from Miguel A fundoplication, incompletely evaluated. *Mild | | | cardiomegaly. Signed by: Pankaj Ledesma, Bobo Sign Date/Time: | | | 08/03/2018 2:07 PM | | + + + + + + | Narrative | Performed At | + + + | HEPATOBILIARY SYSTEM IMAGING, INCLUDING GALLBLADDER WHEN PRESENT | | | CLINICAL INFORMATION: Biliary leak COMPARISON: CT dated 08/01/2018. | | | PROCEDURE: The patient was injected with 6.2 mCi of Tc-99m | | | mebrofenin IV and a routine hepatobiliary scan performed. | | | Additionally, SPECT CT images of the abdomen are performed at 1 hour. | | | FINDINGS: There is prompt, uniform uptake of radiopharmaceutical by | | | the hepatocytes. Following the injection of Tc-99m mebrofenin: 1. | | | The biliary tree is seen by 12 minutes. 2. Status post | | | cholecystectomy. 3. Bowel activity by 21 minutes. There is bile leak | | | with extraluminal tracer activity in left anterior subhepatic region | | | and extending along the drain in left upper abdomen. Enterogastric | | | enterogastric reflux. Bilateral pleural effusions with partial | | | atelectasis and/or consolidation of the lower lobes of both lungs. | | | Postsurgical changes from Miguel A fundoplication, incompletely | | | evaluated. Two abdominal drains in-situ, one terminates in left | | | subphrenic location. The 2nd drain is incompletely imaged. | | + + + + + | Procedure Note | + + | Perfecto, Johan Conversion - 11/29/2018 8:06 PM PDT HEPATOBILIARY SYSTEM IMAGING, INCLUDING | | GALLBLADDER WHEN PRESENTCLINICAL INFORMATION:Biliary leakCOMPARISON:CT dated | | 08/01/2018.PROCEDURE:The patient was injected with 6.2 mCi of Tc-99m mebrofenin IV and | | aroutine hepatobiliary scan performed.Additionally, SPECT CT images of the abdomen are | | performed at 1 hour.FINDINGS:There is prompt, uniform uptake of radiopharmaceutical by | | thehepatocytes.Following the injection of Tc-99m mebrofenin:1. The biliary tree is seen | | by 12 minutes.2. Status post cholecystectomy.3. Bowel activity by 21 minutes.There is | | bile leak with extraluminal tracer activity in left anteriorsubhepatic region and | | extending along the drain in left upper abdomen.Enterogastric enterogastric | | reflux.Bilateral pleural effusions with partial atelectasis and/orconsolidation of the | | lower lobes of both lungs. Postsurgical changesfrom Miguel A fundoplication, incompletely | | evaluated. Two abdominaldrains in-situ, one terminates in left subphrenic location. | | The 2nddrain is incompletely imaged.IMPRESSION: *The study is positive for bile leak.*No | | biliary obstruction.*Status post cholecystectomy.*Bilateral pleural effusions with | | bibasilar atelectasis and/orconsolidation.*Postsurgical changes from Miguel A | | fundoplication, incompletelyevaluated.*Mild cardiomegaly.Signed by: Pankaj Ledesma, | | PushtaurusderSign Date/Time: 08/03/2018 2:07 PM | |subhepatic region and extending along the drain in left upper abdomen. | |Enterogastric enterogastric reflux. | |Bilateral pleural effusions with partial atelectasis and/or | |consolidation of the lower lobes of both lungs. Postsurgical changes | |from Miguel A fundoplication, incompletely evaluated. Two abdominal | |drains in-situ, one terminates in left subphrenic location. The 2nd | |drain is incompletely imaged. | |IMPRESSION: | |*The study is positive for bile leak. | |*No biliary obstruction. | |*Status post cholecystectomy. | |*Bilateral pleural effusions with bibasilar atelectasis and/or | |consolidation. | |*Postsurgical changes from Miguel A fundoplication, incompletely | |evaluated. | |*Mild cardiomegaly. | |Signed by: Pankaj Ledesma, Pushtaurusder | |Sign Date/Time: 08/03/2018 2:07 PM | + + External Lab: CBC (08/03/2018 4:44 AM PDT) + + + + + + | Component | Value | Ref Range | Performed | Pathologist | | | | | At | Signature | + + + + + + | WBC | 9.29 | 3.80 - 11.00 | EXTERNAL | | | | | K/uL | LAB | | + + + + + + | Red Blood | 3.53 (L) | 4.20 - 5.70 | EXTERNAL | | | Cells | | M/uL | LAB | | | Counted | | | | | + + + + + + | Hemoglobin | 11.4 (L) | 13.2 - 17.0 | EXTERNAL | | | | | g/dL | LAB | | + + + + + + | Hematocrit, | 34.7 (L) | 39.0 - 50.0 % | EXTERNAL | | | POC | | | LAB | | + + + + + + | MCV | 98.3 | 80.0 - 100.0 fl | EXTERNAL | | | | | | LAB | | + + + + + + | MCH | 32.4 | 27.0 - 34.0 pg | EXTERNAL | | | | | | LAB | | + + + + + + | MCHC | 33.0 | 32.0 - 35.5 | EXTERNAL | | | | | g/dL | LAB | | + + + + + + | RDW-CV | 46.4 | 37 - 53 fl | EXTERNAL | | | | | | LAB | | + + + + + + | Platelet | 150 | 150 - 400 K/uL | EXTERNAL | | | Count | | | LAB | | | Plasma | | | | | + + + + + + | MPV | 10.3 | fl | EXTERNAL | | | | | | LAB | | + + + + + + | Differentia | AUTOMATED | | EXTERNAL | | | l Type | | | LAB | | + + + + + + | % Segmented | 72.85 | % | EXTERNAL | | | | | | LAB | | | Neutrophils | | | | | + + + + + + | % | 8.62 | % | EXTERNAL | | | Lymphocytes | | | LAB | | + + + + + + | % Monocytes | 15.01 | % | EXTERNAL | | | | | | LAB | | + + + + + + | % | 3.23 | % | EXTERNAL | | | Eosinophils | | | LAB | | + + + + + + | % Basophils | 0.29 | % | EXTERNAL | | | | | | LAB | | + + + + + + | Absolute | 6.77 | 1.90 - 7.40 | EXTERNAL | | | Segmented | | K/uL | LAB | | | Neutrophils | | | | | + + + + + + | Absolute | 0.80 (L) | 1.00 - 3.90 | EXTERNAL | | | Lymphocytes | | K/uL | LAB | | + + + + + + | Absolute | 1.39 (H) | 0.00 - 0.80 | EXTERNAL | | | Monocytes | | K/uL | LAB | | + + + + + + | Absolute | 0.30 | 0.00 - 0.50 | EXTERNAL | | | Eosinophils | | K/uL | LAB | | + + + + + + | Absolute | 0.03Comment: Testing | 0.00 - 0.10 | EXTERNAL | | | Basophils | performed at [facility], [address] | [address] | LAB | | | | [address], | | | | | | [place] [address] | | | | + + + + + + + + | Specimen | + + | Blood specimen | | (specimen) | + + + +---------+ + + | Performing | Address | City/State/Zipcode | Phone Number | | Organization | | | | + +---------+ + + | EXTERNAL LAB | | | | + +---------+ + + Comprehensive Metabolic Panel (08/03/2018 4:44 AM PDT) + + + + + + | Component | Value | Ref Range | Performed | Pathologist | | | | | At | Signature | + + + + + + | Na | 137 | 135 - 145 | EXTERNAL | | | | | mmol/L | LAB | | + + + + + + | K | 4.4 | 3.5 - 4.9 | EXTERNAL | | | | | mmol/L | LAB | | + + + + + + | Cl | 106 | 99 - 109 mmol/L | EXTERNAL | | | | | | LAB | | + + + + + + | CO2 | 25 | 23 - 32 mmol/L | EXTERNAL | | | | | | LAB | | + + + + + + | Anion Gap | 10 | 5 - 20 mmol/L | EXTERNAL | | | | | | LAB | | + + + + + + | Glucose, | 107 (H) | 65 - 99 mg/dL | EXTERNAL | | | Fasting | | | LAB | | + + + + + + | BUN | 10 | 8 - 25 mg/dL | EXTERNAL | | | | | | LAB | | + + + + + + | Creatinine | 1.0 | 0.70 - 1.30 | EXTERNAL | | | | | mg/dL | LAB | | + + + + + + | BUN/Creatin | 10 | | EXTERNAL | | | ine Ratio | | | LAB | | + + + + + + | Calcium | 8.3 (L) | 8.5 - 10.5 | EXTERNAL | | | | | mg/dL | LAB | | + + + + + + | Protein, | 5.5 (L) | 6.3 - 8.2 g/dL | EXTERNAL | | | Total | | | LAB | | + + + + + + | Albumin | 2.4 (L) | 3.3 - 4.8 g/dL | EXTERNAL | | | | | | LAB | | + + + + + + | Globulin | 3.1 | 1.3 - 4.9 g/dL | EXTERNAL | | | | | | LAB | | + + + + + + | A/G Ratio | 0.8 (L) | 1.0 - 2.4 | EXTERNAL | | | | | | LAB | | + + + + + + | Bilirubin | 1.0 | 0.1 - 1.5 mg/dL | EXTERNAL | | | Total | | | LAB | | + + + + + + | ALP, | 72 | 35 - 115 U/L | EXTERNAL | | | External | | | LAB | | + + + + + + | AST | 28 | 10 - 45 U/L | EXTERNAL | | | | | | LAB | | + + + + + + | ALT | 53 | 10 - 65 U/L | EXTERNAL | | | | | [...] | | | | | performed at [facility], [address] | | | | | [facility], | | | | | | [place] [address] | | | | + + + + + + + + | Specimen | + + | Blood specimen | | (specimen) | + + + +---------+ + + | Performing | Address | City/State/Zipcode | Phone Number | | Organization | | | | + +---------+ + + | EXTERNAL LAB | | | | + +---------+ + + Culture, Body Fluid, Sterile, Smear, with Anaerobes (08/02/2018 3:05 PM PDT) + + | Specimen | + + | | + + + + + | Narrative | Performed At | + + + | Specimen Description ASCITES FLUID GRAM STAIN | EXTERNAL LAB | | WBC'S SEEN | | | EPITHELIAL CELLS | | | 1+ | | | GRAM POSITIVE COCCI | | | STAIN PERFORMED ON CYTOSPIN CULTURE | | | NO GROWTH 4 DAYS | | + + + + +---------+ + + | Performing | Address | City/State/Zipcode | Phone Number | | Organization | | | | + +---------+ + + | EXTERNAL LAB | | | | + +---------+ + + XR Abdomen AP (08/02/2018 7:28 AM PDT) + + | Specimen | + + | | + + + + + | Impressions | Performed At | + + + | Enteric tube in the stomach. Otherwise stable abdomen. Signed by: | | | Pankaj Huff, Silver Sign Date/Time: 08/02/2018 8:42 AM | | + + + + + + | Narrative | Performed At | + + + | ABDOMEN ONE VIEW (KUB) CLINICAL INFORMATION: Nasogastric tube | | | placement. COMPARISON: XR ABDOMEN 1 VIEW (08/02/2018); FINDINGS: | | | Enteric tube tip in the left upper quadrant likely in the gastric | | | body. Nonobstructive bowel gas pattern. No significant bone | | | abnormality. | | + + + + + | Procedure Note | + + | Perfecto, Rad Conversion - 11/29/2018 8:06 PM PDT ABDOMEN ONE VIEW (KUB) | | CLINICAL INFORMATION: | | Nasogastric tube placement. | | COMPARISON: | | XR ABDOMEN 1 VIEW (08/02/2018); | | FINDINGS: | | Enteric tube tip in the left upper quadrant likely in the gastric body. | | Nonobstructive bowel gas pattern. No significant bone abnormality. | | IMPRESSION: | | Enteric tube in the stomach. Otherwise stable abdomen. | | Signed by: Pankaj Huff David | | Sign Date/Time: 08/02/2018 8:42 AM | + + XR Abdomen AP (08/02/2018 7:05 AM PDT) + + | Specimen | + + | | + + + + + | Impressions | Performed At | + + + | NG tube tip in proximal stomach lumen. Signed by: Pankaj Mcintyre, | | | Hever Sign Date/Time: 08/02/2018 7:13 AM | | + + + + + + | Narrative | Performed At | + + + | ABDOMEN ONE VIEW (KUB) CLINICAL INFORMATION: Nasogastric tube | | | placement COMPARISON: XR CHEST 1 VIEW (07/29/2018); XR CHEST 2 VIEW | | | FRONTAL AND LATERAL (06/06/2018); FINDINGS: NG tube tip in proximal | | | stomach lumen. Several mild gas dilated upper abdominal small bowel | | | loops. Left lung base atelectasis and small pleural effusion. | | + + + + + | Procedure Note | + + | Perfecto, Rad Conversion - 11/29/2018 8:06 PM PDT ABDOMEN ONE VIEW (KUB) | | CLINICAL INFORMATION: | | Nasogastric tube placement | | COMPARISON: | | XR CHEST 1 VIEW (07/29/2018); XR CHEST 2 VIEW FRONTAL AND LATERAL | | (06/06/2018); | | FINDINGS: | | NG tube tip in proximal stomach lumen. Several mild gas dilated upper | | abdominal small bowel loops. Left lung base atelectasis and small | | pleural effusion. | | IMPRESSION: | | NG tube tip in proximal stomach lumen. | | Signed by: Pankaj Mcintyre Zachary | | Sign Date/Time: 08/02/2018 7:13 AM | + + External Lab: CBC (08/02/2018 4:51 AM PDT) + + + + + + | Component | Value | Ref Range | Performed | Pathologist | | | | | At | Signature | + + + + + + | WBC | 11.86 (H) | 3.80 - 11.00 | EXTERNAL | | | | | K/uL | LAB | | + + + + + + | Red Blood | 4.28 | 4.20 - 5.70 | EXTERNAL | | | Cells | | M/uL | LAB | | | Counted | | | | | + + + + + + | Hemoglobin | 13.9 | 13.2 - 17.0 | EXTERNAL | | | | | g/dL | LAB | | + + + + + + | Hematocrit, | 41.8 | 39.0 - 50.0 % | EXTERNAL | | | POC | | | LAB | | + + + + + + | MCV | 97.7 | 80.0 - 100.0 fl | EXTERNAL | | | | | | LAB | | + + + + + + | MCH | 32.5 | 27.0 - 34.0 pg | EXTERNAL [...] + + + + | Platelet | 167 | 150 - 400 K/uL | EXTERNAL | | | Count | | | LAB | | | Plasma | | | | | + + + + + + | MPV | 9.5 | fl | EXTERNAL | | | | | | LAB | | + + + + + + | Differentia | AUTOMATED | | EXTERNAL | | | l Type | | | LAB | | + + + + + + | % Segmented | 77.36 | % | EXTERNAL | | | | | | LAB | | | Neutrophils | | | | | + + + + + + | % | 6.38 | % | EXTERNAL | | | Lymphocytes | | | LAB | | + + + + + + | % Monocytes | 15.08 | % | EXTERNAL | | | | | | LAB | | + + + + + + | % | 0.87 | % | EXTERNAL | | | Eosinophils | | | LAB | | + + + + + + | % Basophils | 0.31 | % | EXTERNAL | | | | | | LAB | | + + + + + + | Absolute | 9.18 (H) | 1.90 - 7.40 | EXTERNAL | | | Segmented | | K/uL | LAB | | | Neutrophils | | | | | + + + + + + | Absolute | 0.76 (L) | 1.00 - 3.90 | EXTERNAL | | | Lymphocytes | | K/uL | LAB | | + + + + + + | Absolute | 1.79 (H) | 0.00 - 0.80 | EXTERNAL | | | Monocytes | | K/uL | LAB | | + + + + + + | Absolute | 0.10 | 0.00 - 0.50 | EXTERNAL | | | Eosinophils | | K/uL | LAB | | + + + + + + | Absolute | 0.04Comment: Testing | 0.00 - 0.10 | EXTERNAL | | | Basophils | performed at [facility] | [address] | LAB | | | | [address];[place], [place] | | | | | | [address] | | | | + + + + + + + + | Specimen | + + | Blood specimen | | (specimen) | + + + +---------+ + + | Performing | Address | City/State/Zipcode | Phone Number | | Organization | | | | + +---------+ + + | EXTERNAL LAB | | | | + +---------+ + + Lactic Acid (08/02/2018 4:51 AM PDT) + + + + + + | Component | Value | Ref Range | Performed | Pathologist | | | | | At | Signature | + + + + + + | Lactate | 1.0Comment: Testing | 0.4 - 2.0 | EXTERNAL | | | | performed at [facility] | mmol/L | LAB | | | | [address];[place], [place] | | | | | | [address] | | | | + + + [...] + +---------+ + + Basic Metabolic Panel (08/02/2018 4:51 AM PDT) + + + + + + | Component | Value | Ref Range | Performed | Pathologist | | | | | At | Signature | + + + + + + | Na | 144 | 135 - 145 | EXTERNAL | | | | | mmol/L | LAB | | + + + + + + | K | 4.4 | 3.5 - 4.9 | EXTERNAL | | | | | mmol/L | LAB | | + + + + + + | Cl | 110 (H) | 99 - 109 mmol/L | EXTERNAL | | | | | | LAB | | + + + + + + | CO2 | 29 | 23 - 32 mmol/L | EXTERNAL | | | | | | LAB | | + + + + + + | Anion Gap | 9 | 5 - 20 mmol/L | EXTERNAL | | | | | | LAB | | + + + + + + | Glucose, | 117 (H) | 65 - 99 mg/dL | EXTERNAL | | | Fasting | | | LAB | | + + + + + + | BUN | 11 | 8 - 25 mg/dL | EXTERNAL | | | | | | LAB | | + + + + + + | Creatinine | 0.84 | 0.70 - 1.30 | EXTERNAL | [...] | | | | | performed at [facility] [place] | | | | | | [address] [facility];[place], [place] | | | | | | [address] | | | | + + + [...] + | Diagnosis | + + | Abdominal pain, unspecified abdominal location | + + documented in this encounter
--- OUTSIDE RECORDS SUMMARY | ~2019-08-31 | XMS | Encounter Summary ---
Demographics + + + | Address | [address] | | | [place] [address] | + + + | Home Phone | | + + + | Preferred Language | Unknown | + + + | Marital Status | | + + + | Zoroastrian Affiliation | 1013 | + + + | Race | Unknown | + + + | Ethnic Group | Unknown | + + + Author + + + | Author | [facility] | | | and [place] | + + + | Organization | [facility] | | [...] Team Providers + +------+ + | Care Dehydrogenation Converter Operator Name | Role | Phone | + +------+ + | Landen Schaffer MD | PCP | | + +------+ + Encounter Details +--------+ + + + + | Date | Type | Department | Care Team | Description | +--------+ + + + + | 07/21/ | Hospital | [facility] | Conversion | | | 2019 | Encounter | [facility] | Transaction, | | | | | CLINIC [address] | Provider Unknown | | | | | [place] | [phone] | | | | | [address] | | | | | | [phone] | | | +--------+ + + + [...] [place] | | | | | | [address] | | | | | | | [...] | | | | | performed at [facility] | | | | | | [address];[place], [place] | | | | | | [address] | | | | + + + [...] | | | Basophils | performed at [facility], [address] | [address] | LAB | | | | [address], | | | | | | [place] [address] | | | | + + + [...] | | | | | performed at [facility], [address] | | | | | | [facility], | | | | | | [place] [address] | | | | + + + [...] NEGATIVE Testing | | | performed at [facility];[address] [place] [address];[place] [address] | | + + + + +---------+ [...] + + | Historically converted procedure from [facility] Epic environment | EXTERNAL LAB | + + + + +---------+ + + | Performing | Address | City/State/Zipcode | Phone Number | | Organization | | | | + +---------+ + + | EXTERNAL LAB | | | | + +---------+ + + documented in this encounter Visit Diagnoses Not on filedocumented in this encounter"
--- OUTSIDE RECORDS SUMMARY | ~2019-08-31 | XMS | Encounter Summary ---
Demographics + + + | Address | [address] | | | [place] [address] | + + + | Home Phone | | + + + | Preferred Language | Unknown | + + + | Marital Status | | + + + | Mormonism Affiliation | 1013 | + + + | Race | Unknown | + + + | Ethnic Group | Unknown | + + + Author + + + | Author | [facility] | | | and [place] | + + + | Organization | [facility] | | | [...] Team Providers + +------+ + | Care Glass Unloading Equipment Tender Name | Role | Phone | [...] [address] | | | | | [address] | [place] [address] | | | | | [phone] | [phone] | | | | | | | [...] | | Visit | | [facility] [place] | | | | | | [address] | | | | | | | [...] | | | | | performed at [facility];[address] | | | | | | [facility] | | | | | | [address] [address] | | | | | | | [...] EXTERNAL | | | | performed at [facility], [address] | | LAB | | | | [address] [place] | | | | | | [place] [address] | | | | + + + + + + | HCV | [id number] (A)Comment: | IU/mL | EXTERNAL | | [...] [place] | | | | | | [place] [address] | | | | + + + [...]
--- OUTSIDE RECORDS SUMMARY | ~2019-08-31 | XMS | Encounter Summary ---
Demographics + + + | Address | [address] | | | [place] [address] | + + + | Home Phone [...] Team Providers + +------+ + | Care Compliance Project Manager Name | Role | Phone | + +------+ + | Landen Schaffer MD | PCP | | + +------+ + Encounter Details +--------+ + + + + | Date | Type | Department | Care Team | Description | +--------+ + + + + | 09/21/ [facility] | Cholo Sullivan | Encounter for | | 2019 | Encounter | [facility] Vera MD [address] | removal of biliary | | | | INTRA OP [address] | [place] [address] | stent | | | | [address]VD [place], [place] | [phone] | | | | | [address] | | | | | | [phone] | | | +--------+ + + + [...] + + + | Blood Pressure | 151/88 | 09/21/2018 7:50 AM | | | | | PDT | | + + + + + | Pulse | 80 | 09/21/2018 7:50 AM | | | | | PDT | | + + + + + | Temperature | 36.4 C (97.6 F) | 09/21/2018 7:50 AM | | | | | PDT | | + + + + + | Respiratory Rate | 16 | 09/21/2018 7:50 AM | | | | | PDT | | + + + + + | Oxygen Saturation | - | - | | + + + + + | Inhaled Oxygen | - | - | | | Concentration | | | | + + + + + | Weight | 93 kg (205 lb 0.5 | 09/21/2018 7:50 AM | | | | oz) | PDT | | + + + + + | Height | 198.1 cm (6' 6") | 09/21/2018 7:50 AM | | | | | PDT | | + + + + + | Body Mass Index | 23.69 | 09/21/2018 7:50 AM | | | | | PDT | | + + + + + documented in this encounter Discharge Summaries Cholo Sullivan MD - 09/21/2018 7:22 AM PDT Discharge Summaries by Cholo Sullivan MD at 09/21/18721 Author: Cholo Sullivan MD Service: Gastroenterology Author Type: Physician Filed: 09/21/18722 Date of Service: 09/21/18721 Status: Signed Director Business Intelligence: Cholo Sullivan MD (Physician) [facility] Service: Gastroenterology Brief Post-op Discharge Note DISCHARGE DIAGNOSES: Principal Problem: Encounter for removal of biliary stent Resolved Problems: * No resolved hospital problems. * Procedures: Procedure(s): ESOPHAGOGASTRODUODENOSCOPY This patient was transferred to the recovery area post-operatively and has experienced no d ifficulties at the time of my assessment. The patient is anticipated to continue to meet di scharge criteria per protocol as assessed by nursing and may be discharged at that time with designated caregiver. Disposition: Home Condition: Good Follow up: With PCP Medication List START taking these medications omeprazole 20 MG capsule QTY: 60 capsule Refills: 1 Commonly known as: PRILOSEC Take 1 capsule by mouth 2 (two) times daily for 60 days. CONTINUE taking these medications acetaminophen 500 [...] into the lungs 2 (two) times daily. warfarin 4 MG tablet Refills: 0 Commonly known as: COUMADIN You might also be taking other medications not listed above. If you have questions about an y of your other medications, talk to the person who prescribed them or your Primary Care Pro vider. Where to Get Your Medications These medications were sent to [facility] [place], [place] - [address] [facility] [id number] omeprazole 20 MG capsule Cholo Sullivan MD 09/21/2018 7:23 AM documented in th is encounter Medications at Time of Discharge + [...] +---------+ + + | omeprazole | Take 1 capsule by | | 0 | 09/22/19 | | | (PRILOSEC) 20 mg | mouth 2 (two) times | | | 19 | 9 | | capsule | daily for 60 days. | | | | | + [...] [place] | | | | | | [id number] | | | | | | | | +--------+ + + + + documented as of this encounter Procedures + +--------+ + + + | Procedure Name | Priori | Date/Time | Associated Diagnosis | Comments | | | ty | | | | + +--------+ + + + | ENDOSCOPY | Routin | 09/21/2018 | | Results for this | | | e | 6:59 AM | | procedure are in the | | | | PDT | | results section. | + +--------+ + + + documented in this encounter Results Endoscopy Procedures (09/21/2018 6:59 AM PDT) + + | Specimen | + + | | + + + + + | Narrative | Performed At | + + + | Historically converted procedure from [facility] Epic environment | EXTERNAL LAB | | [facility] | | | | | | Patient Name: Mason Champion Procedure Date: | | | 09/21/2018 6:59 AM | | | Date of : 1955 | | | Note Status: Finalized Attending MD: Cholo Sullivan , | | | Instrument Name: [id number] Gastroscope | | | | | | Procedure Type: Upper GI endoscopy | | | Indications: Biliary stent removal Medicines: | | | Monitored Anesthesia Care Complications: No | | | immediate complications. | | | | | | Procedure: Pre-Anesthesia Assessment: - | | | Prior to the procedure, a History and Physical was performed, and | | | patient medications and allergies were reviewed. The patient's | | | tolerance of previous anesthesia was also reviewed. The risks | | | and benefits of the procedure and the sedation options and | | | risks were discussed with the patient. All questions were | | | answered, and informed consent was obtained. Prior | | | Anticoagulants: The patient has taken Coumadin (warfarin). ASA | | | Grade Assessment: III - A patient with severe systemic disease. | | | After reviewing the risks and benefits, the patient was | | | deemed in satisfactory condition to undergo the procedure. | | | After obtaining informed consent, the endoscope was passed under | | | direct vision. Throughout the procedure, the patient's blood | | | pressure, pulse, and oxygen saturations were monitored | | | continuously. The Endoscope was introduced through the mouth, | | | and advanced to the third part of duodenum. The upper GI | | | endoscopy was accomplished without difficulty. The patient | | | tolerated the procedure well. | | | | | | Estimated Blood Loss: Estimated blood loss: none. | | | Findings: LA Grade B (one or more mucosal breaks greater than | | | 5 mm, not extending between the tops of two mucosal folds) | | | esophagitis was found at the gastroesophageal junction. | | | A large amount of food (residue) was found in the gastric body. | | | A foreign body was found at the major papilla. Removal of the | | | stent was accomplished with a snare. | | | | | | Impression: - LA Grade B reflux | | | esophagitis. - A large amount of food (residue) in the | | | stomach. - Duodenal foreign body. Removal was successful. | | | | | | Recommendation: | | | - Patient has a contact number available for emergencies. The signs | | | and symptoms of potential delayed complications were | | | discussed with the patient. Return to normal activities | | | tomorrow. Written discharge instructions were provided to the | | | patient. - Resume previous diet. - Continue present | | | medications. - Use Prilosec (omeprazole) 20 mg PO BID for 8 | | | weeks. - Return to primary care physician. | | | | | | Cholo Vera | | | Laurie, 09/21/2018 7:22:11 AM This report has been signed | | | electronically. Note Initiated On: 09/21/2018 6:59 AM Number of | | | Addenda: 0 [facility] - Endoscopy | | | Services | | + + + + +---------+ + + | Performing | Address | City/State/Zipcode | Phone Number | | Organization | | | | + +---------+ + + | EXTERNAL LAB | | | | + +---------+ + + documented in this encounter Visit Diagnoses + + | Diagnosis | + + | Encounter for removal of biliary stent | + + documented in this encounter
--- OUTSIDE RECORDS SUMMARY | ~2019-08-31 | XMS | Encounter Summary ---
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 City/State/Zipcode | Phone Number | | Organization | | | | + +---------+ + + | EXTERNAL LAB | | | | + +---------+ + + POC ISTAT, [email or web address], Arterial (07/29/2018 4:03 PM PDT) + + + + + + | Component | Value | Ref Range | Performed | Pathologist | | | | | At | Signature | + + + + + + | PH ART | 7.350 | 7.350 - 7.450 | EXTERNAL | | | | | | LAB | | + + + + + + | PCO2 ART | 43 | 35 - 45 mmHg | EXTERNAL | | | | | | LAB | | + + + + + + | PO2 ART | 253 (HH) | 80 - 105 mmHg | EXTERNAL | | | | | | LAB | | + + + + + + | HCO3 ART | 24 | 22 - 26 mmol/L | EXTERNAL | | | | | | LAB | | + + + + + + | POC | 25 | 23 - 27 mEq/L | EXTERNAL | | | APPEARANCE | | | LAB | | | UA | | | | | + + + + + + | Base | 2 | 0.0 - 2.0 | EXTERNAL | | | deficit | | mmol/L | LAB | | + + + + + + | O2 SAT ART | 100 (H) | 95 - 98 % | EXTERNAL | | | | | | LAB | | + + + + + + | Sodium, POC | 139 | 135 - 145 mEq/L | EXTERNAL | | | | | | LAB | | + + + + + + | Potassium, | 4.6 | 3.5 - 5.0 mEq/L | EXTERNAL | | | POC | | | LAB | | + + + + + + | Ionized | 1.12 | 1.12 - 1.32 | EXTERNAL | | | Calcium, | | mmol/L | LAB | | | POC | | | | | + + + + + + | Glucose, | 135 (H) | 65 - 99 mg/dL | EXTERNAL | | | POC | | | LAB | | + + + + + + | Hematocrit, | 44 | 40.0 - 50.0 % | EXTERNAL | | | POC | | | LAB | | + + + + + + | Hemoglobin, | 15.0Comment: Testing | 13.7 - 16.7 | EXTERNAL | | | POC | performed at [facility];[address] | g/dL | LAB | | | | [address];[place], [place] | | | | | | [address] | | | | + + + + + + + + | Specimen | + + | | + + + +---------+ + + | Performing | Address | City/State/Zipcode | Phone Number | | Organization | | | | + +---------+ + + | EXTERNAL LAB | | | | + +---------+ + + POC KIRSTEN, CG8, Arterial (07/29/2018 1:24 PM PDT) + + + + + + | Component | Value | Ref Range | Performed | Pathologist | | | | | At | Signature | + + + + + + | PH ART | 7.320 (L) | 7.350 - 7.450 | EXTERNAL | | | | | | LAB | | + + + + + + | PCO2 ART | 47 (H) | 35 - 45 mmHg | EXTERNAL | | | | | | LAB | | + + + + + + | PO2 ART | 325 (HH) | 80 - 105 mmHg | EXTERNAL | | | | | | LAB | | + + + + + + | HCO3 ART | 24 | 22 - 26 mmol/L | EXTERNAL | | | | | | LAB | | + + + + + + | POC | 26 | 23 - 27 mEq/L | EXTERNAL | | | APPEARANCE | | | LAB | | | UA | | | | | + + + + + + | Base | 2 | 0.0 - 2.0 | EXTERNAL | | | deficit | | mmol/L | LAB | | + + + + + + | O2 SAT ART | 100 (H) | 95 - 98 % | EXTERNAL | | | | | | LAB | | + + + + + + | Sodium, POC | 138 | 135 - 145 mEq/L | EXTERNAL | | | | | | LAB | | + + + + + + | Potassium, | 4.8 | 3.5 - 5.0 mEq/L | EXTERNAL | | | POC | | | LAB | | + + + + + + | Ionized | 1.16 | 1.12 - 1.32 | EXTERNAL | | | Calcium, | | mmol/L | LAB | | | POC | | | | | + + + + + + | Glucose, | 123 (H) | 65 - 99 mg/dL | EXTERNAL | | | POC | | | LAB | | + + + + + + | Hematocrit, | 42 | 40.0 - 50.0 % | EXTERNAL | | | POC | | | LAB | | + + + + + + | Hemoglobin, | 14.3Comment: Testing | 13.7 - 16.7 | EXTERNAL | | | POC | performed at [facility];[address] | g/dL | LAB | | | | [address];[place], [place] | | | | | | [address] | | | | + + + + + + + + | Specimen | + + | | + + + +---------+ + + | Performing | Address | City/State/Zipcode | Phone Number | | Organization | | | | + +---------+ + + | EXTERNAL LAB | | | | + +---------+ + + Protime INR (07/29/2018 11:16 AM PDT) + + + + + + | Component | Value | Ref Range | Performed | Pathologist | | | | | At | Signature | + + + + + + | INR | 1.2Comment: REFERENCE | | EXTERNAL | | | [...] | | | | | performed at [facility] | | | | | | [facility];[place], [place] | | | | | | [address] | | | | + + + [...] + +---------+ + + Type and Screen (07/29/2018 10:44 AM PDT) + + + + + + | Component | Value | Ref Range | Performed | Pathologist | | | | | At | Signature | + + + + + + | ABO Rh | O POSITIVE | | EXTERNAL | | | | | | LAB | | + + + + + + | Antibody | NEGATIVE | | EXTERNAL | | | Screen | | | LAB | | + + + + + + | BB BAND | [id number] | | EXTERNAL | | | | performed at [facility] | | LAB | | | | [address];[place] | | | | | | [address] | | | | + + + [...] | Gastroesophageal reflux disease with hiatal hernia Esophageal reflux | + + documented in this encounter
--- OUTSIDE RECORDS SUMMARY | ~2019-08-31 | XMS | Encounter Summary ---
Demographics + + + | Address | [address] | | | [place] [address] | + + + | Home Phone [...] Team Providers + +------+ + | Care Soft Sugar Supervisor Name | Role | Phone | [...] + + | 12/21/ | Telephone | [facility] | Michele Motta MD | Follow-up | | 2019 | | GENERAL SURGERY [address] | [address] [place] | (reschedule) | | | | [address] | [address] [place], [place] | | | | | [place], [place] | [address] | | | | | [address] | | | | | | [phone] | | | +--------+ + + + [...] | | | Visit | | [facility] | | | | | | [phone] | | | | | | | | +--------+ + + + + documented as of this encounter Visit Diagnoses Not on filedocumented in this encounter"
--- OUTSIDE RECORDS SUMMARY | ~2019-08-31 | XMS | Encounter Summary ---
Demographics + + + | Address | [address] | | | [place] [address] | + + + | Home Phone [...] Team Providers + +------+ + | Care Catholic Priest Name | Role | Phone | + +------+ + | Maria Vieira | PCP | | + +------+ + Reason for Visit + + + | Reason | Comments | + + + | Medication Refill | | + + + Encounter Details +--------+--------+ + + + | Date | Type | Department | Care Team | Description | +--------+--------+ + + + | 03/10/ | Refill | [facility] | Tristian Foote MD | Medication Refill | | 2019 | | PULMONOLOGY [address] | [address] | | | | | [address] | [place], [place] | | | | | [place], [place] | [address] | | | | | [address] | | | | | | [phone] | | | +--------+--------+ + + + [...] [place] | | | | | | [id number] | | | | | | | | +--------+ + + + + documented as of this encounter Visit Diagnoses Not on filedocumented in this encounter"
--- OUTSIDE RECORDS SUMMARY | ~2019-08-31 | XMS | Encounter Summary ---
Demographics + + + | Address | [address] | | | [place] [address] | + + + | Home Phone | | + + + | Preferred Language | Unknown | + + + | Marital Status | | + + + | Denominational Affiliation | 1013 | + + + | Race | Unknown | + + + | Ethnic Group | Unknown | + + + Author + + + | Author | [facility] | | | and [place] | + + + | Organization | [facility] | | | [...] Team Providers + +------+ + | Care Construction Estimator Name | Role | Phone | + +------+ + | Maria Vieira | PCP | | + +------+ + Reason for Visit +--------+ + | Reason | Comments | +--------+ + | Other | CT Scan | +--------+ + Encounter Details +--------+ + + + + | Date | Type | Department | Care Team | Description | +--------+ + + + + | 08/28/ | Telephone | [facility] | Tristian Foote MD | Other (CT Scan) | | 2020 | | PULMONOLOGY [address] | [address] | | | | | [address] | [place], [place] | | | | | [place], [place] | [address] | | | | | [address] | | | | | | [phone] | | | +--------+ + + + [...] | | Visit | | [place] | | | | | | [address]35[address] | | | | | | | | +--------+ + + + + documented as of this encounter Visit Diagnoses Not on filedocumented in this encounter"
--- OUTSIDE RECORDS SUMMARY | ~2019-08-31 | XMS | Clinical Summary ---
Demographics + + + | Address | [address] | | | [place] [address] | + + + | Home Phone | | + + + | Preferred Language | Unknown | + + + | Marital Status | | + + + | Moravian Affiliation | 1013 | + + + | Race | Unknown | + + + | Ethnic Group | Unknown | + + + Author + + + | Author | [facility] (Historical as of | | | 12-03-18) | + + + | Organization | [facility] (Historical as of | | | 12-03-18) [...] Team Providers + +------+ + | Care Treater Name | Role | Phone | + [...] + + + + + | Tiotropium Marion | Shortness of Breath | High | [...] tablet by | 30 | 11 | 01/1 | | Activ | | (ZEBETA) 10 MG | mouth daily. 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[facility]) | 05/05/2018 | + + + | [...] N/A: | [place] | | 01/26/ | [id number] | | [id number]: Qty: 1 on | | Bile | SCIENTIFIC | | 2019 | 320 / | | 08/03/2018 by Laurie, | | Duct | [facility] | | | /[id number] | | Cholo Vera MD | | [...] +------+-------+ + | MEDICARE | MEDICA | [id number] | | | [address] | | | RE | | | | [place] [address] | | | LAURA | | | [...] + +--------+ +--------+ + + | [employer] | Person | Self [birth year] | Home: | [address] | | DEX | al/[place] | | 1955 | [phone] | [place], [place] | | | jeanne | | | [address] | [phone] | + +--------+ +--------+ + +"
--- OUTSIDE RECORDS SUMMARY | ~2019-08-31 | XMS | Encounter Summary ---
Demographics + + + | Address | [address] | | | [place] [address] | + + + | Home Phone | | + + + | Preferred Language | Unknown | + + + | Marital Status | | + + + | Pentecostalism Affiliation | 1013 | + + + | Race | Unknown | + + + | Ethnic Group | Unknown | + + + Author + + + | Author | [facility] | | | and [place] | + + + | Organization | [facility] | | | [...] Providers + +------+ + | Care Director Shopper Marketing Name | Role | Phone | + [...] [place] | | | | | [place], [place] | [address] | | | | | [address] | | | | | | [phone] | | | +--------+ + + + [...] | | Visit | | [place] | | | | | | [address] | | | | | | | [...] TR maxP.95 mmHg TR Vmax: 2.49 m/s Balling Machine Operator: | | | Authenticated by: Donis Smith Report Date/Time: 08-19-2017 21:7:55 | | | | | + + + + + | Procedure Note | + + | [place] Conversion - 12/08/2018 3:40 PM PDT Patient Name: Rich Champion of | | : 1955 Performing Physician: oDnis | | [facility] INDICATIONS------ | | -----Dyspnea CONCLUSIONS 1. The [...] cmLVIDd: 5.06 cmLVPWd: 0.97 cmLVOT Area: 3.66 [id number] Diam: 2.15 | | cm%FS: 27.76 %EF(Teich): [...] mlLAESV Index (A-L): 57.55 ml/m2LAAs A2C: 34.87 [id number] A-L A2C: 152.77 mlLALs | | A2C: 6.75 cmLAAs A4C: 30.61 gn5CANVF A-L A4C: 112.44 mlLALs A4C: 7.07 cmRAAd: | | 33.56 [id number] A-L: 153.95 mlRAEDV MOD: 149.23 mlRALd: 6.21 cmRAAs: 24.46 | | lz2OTPQW A-L: 88.12 mlRAESV MOD: 85.83 mlRALs: 5.76 cmTAPSE: 1.98 cmAV maxPG: | | 4.61 mmHgAV meanP.17 mmHgAV Vmax: 1.07 m/Mansi Vmean: 0.66 m/Mansi VTI: 15.51 | | cmAVA Vmax: 2.99 cm2AVA (VTI): 3.22 [id number] Vmax: 0.00 cm2/m2AVAI (VTI): 0.00 | | cm2/m2LVOT maxP.09 mmHgLVOT meanP.47 mmHgLVSI Dopp: 21.46 ml/m2LVSV Dopp: | | 50.00 mlLVOT Vmax: 0.87 m/sLVOT Vmean: 0.56 m/sLVOT VTI: 13.65 cmMV A Gilbert: | | 0.03 m/sMV DecT: 101.43 msMV E Gilbert: 0.58 m/sMV E/A Ratio: 19MV PHT: 29.41 msMVA | | By PHT: 7.47 ux4Cqzxvi e': 0.10 m/sSeptal E/e': 5.72Lateral e': 0.07 m/sLateral | | E/e': 7.30RAP: 5 mmHgRVSP: 29.95 mmHgTR maxP.95 mmHgTR Vmax: 2.49 m/s | | Balling Machine Operator:Authenticated by: Donis Ramos Date/Time: 08-19-2017 21:7:55 | [...] |TR Vmax: 2.49 m/s | | | |Balling Machine Operator: | |Authenticated by: Donis Smith | |Report [...]
--- OUTSIDE RECORDS SUMMARY | ~2019-08-31 | XMS | Encounter Summary ---
Demographics + + + | Address | [address] | | | [place] [address] | + + + | Home Phone | | + + + | Preferred Language | Unknown | + + + | Marital Status | | + + + | Mosque Affiliation | 1013 | + + + | Race | Unknown | + + + | Ethnic Group | Unknown | + + + Author + + + | Author | [facility] | | | and [place] | + + + | Organization | [facility] | | | and [...] Team Providers + +------+ + | Care Returned Goods Inspector Name | Role | Phone | + +------+ + | Landen Schaffer MD | PCP | | + +------+ + Encounter Details +--------+ + + + + | Date | Type | Department | Care Team | Description | +--------+ + + + + | 06/06/ | [facility] | [facility] | Conversion | Lung bullae (HCC) | | 2019 | Encounter | [facility] XRAY | Transaction, | | | | | [address] | Provider Unknown | | | | | [place], [place] | [phone] | | | | | [address] | | | | | | [phone] | Ernst Victoria PA | | | | | | [address] | | | | | | [place], [place] | | | | | | [address] | | | | | | | [...] 2 tablets by | | 0 | 02/05/20 | | | (TYLENOL) 500 mg | [...] [place] | | | | | | [address] | | | | | | | [...]
--- OUTSIDE RECORDS SUMMARY | ~2019-08-31 | XMS | Encounter Summary ---
Demographics + + + | Address | [address] | | | [place] [address] | + + + | Home Phone | | + + + | Preferred Language | Unknown | + + + | Marital Status | | + + + | Jainism Affiliation | 1013 | + + + | Race | Unknown | + + + | Ethnic Group | Unknown | + + + Author + + + | Author | [facility] | | | and [place] | + + + | Organization | [facility] | | | and [...] Team Providers + +------+ + | Care Switch Box Installer Name | Role | Phone | + +------+ + | Landen Schaffer MD | PCP | | + +------+ + Reason for Visit +--------+ + | Reason | Comments | +--------+ + | Other | message for Dr. Motta | +--------+ + Encounter Details +--------+ + + + + | Date | Type | Department | Care Team | Description | +--------+ + + + + | 12/15/ | Telephone | [facility] | Michele Motta MD | Other (message for | | 2019 | | GENERAL SURGERY [address] | [address] [place] | Dr. Motta) | | | | [address] | [address] [place], [place] | | | | | [place], [place] | [address] | | | | | [address] | | | | | | [phone] | | | +--------+ + + + [...] | | Visit | | [place] | | | | | | [address] | | | | | | | | +--------+ + + + + documented as of this encounter Visit Diagnoses Not on filedocumented in this encounter"
--- OUTSIDE RECORDS SUMMARY | ~2019-08-31 | XMS | Encounter Summary ---
Demographics + + + | Address | [address] | | | [place] [address] | + + + | Home Phone [...] Team Providers + +------+ + | Care Magnetic Healer Name | Role | Phone | + +------+ + | Landen Schaffer MD | PCP | | + +------+ + Encounter Details +--------+ + + + + | Date | Type | Department | Care Team | Description | +--------+ + + + + | 05/23/ | Hospital | [facility] | Samson Limon MD | Lung bullae (HCC) | | 2019 - | Encounter | [facility] | [address] | | | | | [address] | [place], [place] | | | 05/24/ | | [place], [place] | [address] | | | 2018 | | [address] | | | | | | [phone] | | | +--------+ + + + [...] | Blood Pressure | 148/93 | 05/24/2018 11:19 AM | | | | | PST | | + + + + + | Pulse | 76 | 05/24/2018 11:19 AM | | | | | PST | | + + + + + | Temperature | 36.5 C (97.7 F) | 05/24/2018 11:19 AM | | | | | PST | | + + + + + | Respiratory Rate | 18 | 05/24/2018 11:19 AM | | | | | PST | | + + + + + | Oxygen Saturation | - | - | | + + + + + | Inhaled Oxygen | - | - | | | Concentration | | | | + + + + + | Weight | 104 kg (229 lb 4.5 | 05/24/2018 11:19 AM | | | | oz) | PST | | + + + + + | Height | 198.1 cm (6' 6") | 05/24/2018 11:19 AM | | | | | PST | | + + + + + | Body Mass Index | 26.5 | 05/24/2018 11:19 AM | | | | | PST | | + + + + + documented in this encounter Discharge Summaries Ernst Victoria PA - 05/24/2018 8:38 AM PSTFormatting of this note might be different fr om the original. Discharge Summaries by Ernst Victoria PA-C at 05/24/18 0838 Author: Ernst Victoria PA-C Service: Cardiac, Thoracic, and Vascular Surgery Author Ty pe: Physician Environmental Control Administrator - Certified Filed: 05/24/18 0841 Date of Service: 05/24/1808 Status: Signed Blue Line Hanger: Ernst Victoria PA-C (Physician Environmental Control Administrator - Certified) Cosigner: Samson Limon MD at 05/24/18 7928 Service: Cardiothoracic Surgery Discharge Summary Pt: Mason [...] ARTHROSCOPY Allergies Allergen Reactions Spiriva Handihaler [Tiotropium [place] Monohydrate] Shortness of Breath Prescriptions Prior to [...] 11/21/18 Follow up: Samson Limon MD [address] [phone] Schedule an appointment as soon as possible for a visit on 06/07/2018 Post-Op Maria Vieira PA-C [address] [facility] [place] [address] Schedule an appointment as [...] medications were sent to [facility] [place], [place] - [place] [address] [email or web address], [place] [address] [email or web address], [address] [address] acetaminophen 500 MG tablet gabapentin 300 MG capsule methocarbamol 500 MG tablet Discharge took less than 30 minutes, to include final examination, discussion of admission, and preparation of prescriptions, instructions for on-going care, follow-up and documentati on of discharge summary. Ernst Victoria PA-C 05/24/2018 documented in this enc ounter Medications at [...] ONE TABLET BY | | 0 | 20 | | | (ROBAXIN) 500 mg | [...] Progress Notes Conversion Transaction, Provider Unknown - 05/24/2018 1:02 PM PSTFormatting of this note m ight be different from the original. Nurse Progress Note by Shara Bauer RN at 05/24/18 1302 Author: Shara Bauer RN Service: (none) Author Type: Registered Nurse Filed: 05/24/18 1303 Date of Service: 05/24/18 1302 Status: Signed Blue Line Hanger: Shara Bauer RN (Registered Nurse) Discharge information including new medications, follow up appointments and incision care d iscussed with patient. Pt stated understanding of all teaching. IVs and telemetry discontinu ed. Pt refused wheelchair escort. VSS. Pt going home with family. Shara Bauer RN 05/24/18 onver lissa Min, Provider Unknown - 05/24/2018 9:25 AM PST Case Management by JACKSON Greene at 05/24/18 0925 Author: JACKSON Greene Service: (none) Author Type: Facilities Supervisor Filed: 05/24/18 1116 Date of Service: 05/24/18924 Status: Addendum Blue Line Hanger: JACKSON Greene (Facilities Supervisor) Related Notes: Original Note by JACKSON Greene (Facilities Supervisor) filed at 05/24/18 0934 05/24/18 09 Discharge Planning Evaluation Admitting Diagnosis Long Bullae, Thoracoscopy Readmission No Living Arrangements Alone Support Systems Friends/neighbors Type of Residence Private residence House type Mobile home Independent with ADL's Yes Independent with Mobility Yes Mental Status Oriented Anticipated Discharge Plan Post Acute Care Needs None at this time Resources Financial concerns No Transportation issues No Patient/Family concerns No Prescription Plan Yes Name of Pharmacy ([facility]) Anticipated Disposition Facility Type Home Medicare Important Message (DOM) Given (DOM given on 05/23/18) SEISMOMETER OPERATOR met with Pt and discussed discharge planning, planning to return home when medically re nitin. Pt is a 62 y.o. single Cauasian male here with Long Bullae, s/p Thoracoscopy, resection and biopsy. Pt reports he resides alone, has been independent with Activities of Daily living and indep endent with Instrumental Activities of daily living. Pt states he is not on any blood thinners at this time. Pt denies outpatient dialysis, home health services or home oxygen. Patient's PCP is: Maria Vieira Patient's insurance: Medicare [employer] Coverage concerns: none at this time Medication coverage/concerns: Pt [facility] for discharge medications. Pt consented for Rx Pharmacy for bedside delivery with Too Victoria PA-C. SEISMOMETER OPERATOR fo llowed up with Pt received discharge medications for Rx Pharmacy bedside delivery. Community resources utilized / needed: None requested at this time. Assistance in transportation: Pt friend (Refugio) will be coming Identification of any specific education / training: None Barriers to Discharge / Alternative housing needed: None Anticipated DCP: Home CARY IZQUIERDO, Facilities Supervisor [phone] cell Ernst España PA - 05/24/2018 8:24 AM PST Progress Notes by Ernst Victoria PA-C at 05/24/18 0824 Author: Ernst Victoria PA-C Service: Cardiac, Thoracic, and Vascular Surgery Author Ty pe: Physician Environmental Control Administrator - Certified Filed: 05/24/18828 Date of Service: 05/24/18823 Status: Attested Blue Line Hanger: Ernst Victoria PA-C (Physician Environmental Control Administrator - Certified) Cosigner: Samson Limon MD at 05/24/18 1343 Attestation signed by Samson Limon MD at 05/24/18 1343 Patient was seen, examined, labs, x-rays, treatment plan reviewed. [facility] Service: Cardiothoracic Surgery Progress Note ROOM: 9103/9103-1 Hospital Day: LOS: 1 day Post-Op Day: [...] hours. No results for input(s): PHART, PO2ART, ZFT6XRZ, Q5SELGVD, BEART in the last 168 hours. Recent [...] attending provider, Dr. Braxton Victoria PA-C 05/24/2018 onversion Transact ion, Provider Unknown - 05/24/2018 6:44 AM PSTFormatting of this note might be different fr om the original. Nurse Progress Note by Cary Andre RN at 05/24/18643 Author: Cary Andre RN Service: (none) Author Type: Registered Nurse Filed: 05/24/1851 Date of Service: 05/24/18643 Status: Signed Blue Line Hanger: Cary Andre RN (Registered Nurse) Pt had one acute event of severe pain around 2300, crying out in pain and tearful. Too upd ated with no new orders, no lidocaine patch placed d/t relation to prior allergy. Eventuall y sharp, stabbing/cutting pain at L lateral CT insertion site resolved with change of positi on and application of heat therapy. Pt's pain 4/10 at surgical sites and tolerable with cur rent scheduled pain medications. Pt unable to urinate at start of shift, bladder scan showing >800, pt straight cath'd x1 wi th 750mL out of prema, malodorous urine. Pt now able to void on own this morning and urine is now yellow and clear. Pt ambulating in halls overnight with 1p SBA. No output from CT. Small air leak noted with some crepitus at CT site. VSS and afebrile. Frequent use of IS encouraged and performed. End of shift chart check complete. onver lissa Transaction, Provider Unknown - 05/23/2018 6:28 PM PST Nurse Progress Note by Ines Fish RN at 05/23/181827 Author: Ines Fish RN Service: (none) Author Type: Registered Nurse Filed: 05/23/18 184 Date of Service: 05/23/181827 Status: Signed Blue Line Hanger: Ines Fish RN (Registered Nurse) Dressing c/d/I with minimal sanguanous drainage noted in tube. Per verbal order from Dr. Won morris pt was put on water seal. Chart Check complete. Ines Fish Rn onver lissa Transaction, Provider Unknown - 05/23/2018 12:24 PM PST Pharmacy Note by Kirstin Pollack RPH at 05/23/181223 Author: Kirstin Pollack RPH Service: Pharmacy Author Type: Pharmacist Filed: 05/23/181223 Date of Service: 05/23/181223 Status: Signed Blue Line Hanger: Kirstin Pollack RPH (Pharmacist) Clinical Pharmacy Note: Renal Monitoring Ht Readings from Last 1 Encounters: 05/23/18 1.981 m (6' 6") Wt Readings from Last 1 Encounters: 05/23/18 99.7 kg (219 lb 12.8 oz) Serum creatinine: 1.1 mg/dL 05/10/18 1306 Estimated creatinine clearance: 92.3 mL/min Pharmacy dosing for renal function per Ernst Victoria Currently there are no medications requiring renal adjustment. Pharmacy will continue to mo nitor and adjust as clinically indicated. Kirstin Pollack PharmFatimah 05/23/2018 12:24 PM docume nted in this encounter Plan of [...] [place] | | | | | | [id number] | | | | | | | | +--------+ + + + + documented as of this encounter Procedures + +--------+ + + + | Procedure Name | Priori | Date/Time | Associated Diagnosis | Comments | | | ty | | | | + +--------+ + + + | XR CHEST 2 VIEWS | Routin | 05/24/2018 | | Results for this | | | e | 9:30 AM | | [...] | EXTERNAL LAB: [facility] | Routin | 05/24/2018 | | Results [...] | EXTERNAL LAB: [facility] | Routin | 05/23/2018 | | Results for this | | | e | 12:13 PM | | procedure are in the | | | | PST | | results section. | + +--------+ + + + | MAGNESIUM | Routin | 05/23/2018 | | Results for this | | | e | 12:13 PM | | procedure are in the | | | | PST | | results section. | + +--------+ + + + | BASIC METABOLIC | Routin | 05/23/2018 | | Results for this | | PANEL | e | 12:13 PM | | procedure are in the | | | | PST | | results section. | + +--------+ + + + | TISSUE REQUEST FOR | Routin | 05/23/2018 | | Results for this | | PATHOLOGY (NON-ORD) | e | 11:00 AM | | procedure are in the | | | | PST | | results section. | + +--------+ + + + | XR CHEST 1 VIEW | Routin | 05/23/2018 | | Results for this | | | e | 10:42 AM | | procedure are in the | | | | PST | | results section. | + +--------+ + + + | PROTIME INR | Routin | 05/23/2018 | | Results for this | | | e | 6:45 AM | | procedure are in the | | | | PST | | results section. | + +--------+ + + + | TYPE AND SCREEN | Routin | 05/23/2018 | | Results for this | | | e | 6:31 AM | | procedure are in the | | | | PST | | results section. | + +--------+ + + + documented in this encounter Results XR Chest 2 Vws (05/24/2018 9:30 AM PST) + + | Specimen | + + | | + + + + + | Impressions | Performed At | + + + | *Status post removal of the left thoracostomy tube. Possible trace | | | left apical pneumothorax. Similar soft tissue emphysema along left | | | lateral chest wall. *COPD with pulmonary emphysema. Bibasilar | | | subsegmental atelectasis or scarring. Signed by: Bobo Ledesma | | | Sign Date/Time: 05/24/2018 12:51 PM | | + + + + + + | Narrative | Performed At | + + + | CHEST TWO VIEWS CLINICAL INFORMATION: Status post chest tube | | | removal. COMPARISON: XR CHEST 1 VIEW (05/24/2018); XR CHEST 1 VIEW | | | (05/23/2018); CT CHEST WO CONTRAST (02/11/2018); XR CHEST 2 VIEWS | | | (02/08/2013); XR CHEST 2 VIEW (02/08/2013); FINDINGS: Normal | | | cardiac size. Moderate size hiatal hernia, better visualized on CT | | | dated 02/11/2018. Mild aortic atherosclerosis. COPD with pulmonary | | | emphysema. Interval removal of the left thoracostomy tube. | | | Possible trace left apical pneumothorax. Soft tissue emphysema | | | along left lateral chest wall. Bibasilar subsegmental atelectasis | | | or scarring. Multiple remote healed right rib fractures. | | | Osteopenia. Mild thoracic spondylosis. | | + [...] Date/Time: 05/24/2018 12:51 PM | + + XR Chest 1 Vw (05/24/2018 5:20 AM PST) + + | Specimen | + + | | + + + + + | Impressions | Performed At | + + + | 1. Stable positioning of the left-sided chest tube. 2. Stable | | | streaky left basilar scarring or atelectasis. COPD/emphysema. 3. | | | Cardiomediastinal contours are stable. 4. No visible pneumothorax. | | | Increased left chest wall subcutaneous emphysema. Signed by: | | | MD Carol, Torrie Sign Date/Time: 05/24/2018 5:54 AM | | + + + + + + | Narrative | Performed At | + + + | CHEST ONE VIEW CLINICAL INFORMATION: Respiratory status. | | | COMPARISON: X-ray yesterday. | | + + + + + | Procedure Note | + + | Perfecto, Johan Conversion - 11/29/2018 8:06 PM PDT CHEST [...] Date/Time: 05/24/2018 5:54 AM | + + External Lab: [facility] (05/24/2018 3:59 AM PST) + + + + + + | Component | Value | Ref Range | Performed | Pathologist | | | | | At | Signature | + + + + + + | WBC | 10.67 | 3.80 - 11.00 | EXTERNAL | | | | | K/uL | LAB | | + + + + + + | Red Blood | 4.86 | 4.20 - 5.70 | EXTERNAL | | | Cells | | M/uL | LAB | | | Counted | | | | | + + + + + + | Hemoglobin | 15.7 | 13.2 - 17.0 | EXTERNAL | | | | | g/dL | LAB | | + + + + + + | Hematocrit, | 46.6 | 39.0 - 50.0 % | EXTERNAL | | | POC | | | LAB | | + + + + + + | MCV | 95.8 | 80.0 - 100.0 fl | EXTERNAL | | | | | | LAB | | + + + + + + | MCH | 32.4 | 27.0 - 34.0 pg | EXTERNAL | | | | | | LAB | | + + + + + + | MCHC | 33.8 | 32.0 - 35.5 | EXTERNAL | | | | | g/dL | LAB | | + + + + + + | RDW-CV | 46.8 | 37 - 53 fl | EXTERNAL | | | | | | LAB | | + + + + + + | Platelet | 179 | 150 - 400 K/uL | EXTERNAL [...] + + + | % Segmented | 80.25 | % | EXTERNAL | | | | | | LAB | | | Neutrophils | | | | | + + + + + + | % | 8.63 | % | EXTERNAL | | | Lymphocytes | | | LAB | | + + + + + + | % Monocytes | 11.05 | % | EXTERNAL | | | | | | LAB | | + + + + + + | % | 0.01 | % | EXTERNAL | | | Eosinophils | | | LAB | | + + + + + + | % Basophils | 0.06 | % | EXTERNAL | | | | | | LAB | | + + + + + + | Absolute | 8.56 (H) | 1.90 - 7.40 | EXTERNAL | | | Segmented | | K/uL | LAB | | | Neutrophils | | | | | + + + + + + | Absolute | 0.92 (L) | 1.00 - 3.90 | EXTERNAL | | | Lymphocytes | | K/uL | LAB | | + + + + + + | Absolute | 1.18 (H) | 0.00 - 0.80 | EXTERNAL | | | Monocytes | | K/uL | LAB | | + + + + + + | Absolute | 0.00 | 0.00 - 0.50 | EXTERNAL | | | Eosinophils | | K/uL | LAB | | + + + + + + | Absolute | 0.01Comment: Testing | 0.00 - 0.10 | EXTERNAL | | | Basophils | performed at [facility], [address] | [address] | LAB | | | | [address], | | | | | | [place] [address] | | | | + + + + + + + + | Specimen | + + | Blood specimen | | (specimen) | + + + +---------+ + + | Performing | Address | City/State/Zipcode | Phone Number | | Organization | | | | + +---------+ + + | EXTERNAL LAB | | | | + +---------+ + + Magnesium (05/24/2018 3:59 AM PST) + + + + + + | Component | Value | Ref Range | Performed | Pathologist | | | | | At | Signature | + + + + + + | Magnesium | 2.2Comment: Testing | 1.7 - 2.4 mg/dL | EXTERNAL | | | | performed at [facility], [address] | | LAB | | | | [address], | | | | | | [place] [address] | | | | + + + [...] + +---------+ + + Basic Metabolic Panel (05/24/2018 3:59 AM PST) + + + + + [...] + + + + | Cl | 103 | 99 - 109 mmol/L | EXTERNAL | | | | | | LAB | | + + + + + + | CO2 | 26 | 23 - 32 mmol/L | EXTERNAL | | | | | | LAB | | + + + + + + | Anion Gap | 15 | 5 - 20 mmol/L | EXTERNAL | | | | | | LAB | | + + + + + + | Glucose, | 118 (H) | 65 - 99 [...] + | BUN/Creatin | 17 | | EXTERNAL | | | ine Ratio | | | LAB | | + + + + + + | Calcium | 9.1 | 8.5 - 10.5 | EXTERNAL | [...] | | | | | performed at [facility], [address] | | | | | | [facility], | | | | | | [place] [address] | | | | + + + [...] + +---------+ + + External Lab: CBC (05/23/2018 12:13 PM PST) + + + + + + | Component | Value | Ref Range | Performed | Pathologist | | | | | At | Signature | + + + + + + | WBC | 10.64 | 3.80 - 11.00 | EXTERNAL | | | | | K/uL | LAB | | + + + + + + | Red Blood | 4.68 | 4.20 - 5.70 | EXTERNAL | | | Cells | | M/uL | LAB | | | Counted | | | | | + + + + + + | Hemoglobin | 15.2 | 13.2 - 17.0 | EXTERNAL | | | | | g/dL | LAB | | + + + + + + | Hematocrit, | 44.3 | 39.0 - 50.0 % | EXTERNAL | | | POC | | | LAB | | + + + + + + | MCV | 94.5 | 80.0 - 100.0 fl | EXTERNAL | | | | | | LAB | | + + + + + + | MCH | 32.4 | 27.0 - 34.0 pg | EXTERNAL | | | | | | LAB | | + + + + + + | MCHC | 34.3 | 32.0 - 35.5 | EXTERNAL | | | | | g/dL | LAB | | + + + + + + | RDW-CV | 47.3 | 37 - 53 fl | EXTERNAL | | | | | | LAB | | + + + + + + | Platelet | 169 | 150 - 400 K/uL | EXTERNAL | | | Count | | | LAB | | | Plasma | | | | | + + + + + + | MPV | 9.4 | fl | EXTERNAL | | | | | | LAB | | + + + + + + | Differentia | AUTOMATED | | EXTERNAL | | | l Type | | | LAB | | + + + + + + | % Segmented | 89.53 | % | EXTERNAL | | | | | | LAB | | | Neutrophils | | | | | + + + + + + | % | 6.20 | % | EXTERNAL | | | Lymphocytes | | | LAB | | + + + + + + | % Monocytes | 3.85 | % | EXTERNAL | | | | | | LAB | | + + + + + + | % | 0.14 | % | EXTERNAL | | | Eosinophils | | | LAB | | + + + + + + | % Basophils | 0.28 | % | EXTERNAL | | | | | | LAB | | + + + + + + | Absolute | 9.52 (H) | 1.90 - 7.40 | EXTERNAL | | | Segmented | | K/uL | LAB | | | Neutrophils | | | | | + + + + + + | Absolute | 0.66 (L) | 1.00 - 3.90 | EXTERNAL | | | Lymphocytes | | K/uL | LAB | | + + + + + + | Absolute | 0.41 | 0.00 - 0.80 | EXTERNAL | | | Monocytes | | K/uL | LAB | | + + + + + + | Absolute | 0.02 | 0.00 - 0.50 | EXTERNAL | | | Eosinophils | | K/uL | LAB | | + + + + + + | Absolute | 0.03 | 0.00 - 0.10 | EXTERNAL | | | Basophils | | K/uL | LAB | | + + + + + + | RBC | RBC AND PLT MORPHOLOGY | | EXTERNAL | | | Morphology | APPEAR NORMAL | | LAB | | + + + + + + | Differentia | SLIDE SCANNED, AGREES | | EXTERNAL | | | l Comments | WITH AUTOMATED | | LAB | | | | RESULTS.Comment: Testing | | | | | | performed at [facility] | | | | | | [facility];[place], [place] | | | | | | [address] | | | | + + + + + + + + | Specimen | + + | Blood specimen | | (specimen) | + + + +---------+ + + | Performing | Address | City/State/Zipcode | Phone Number | | Organization | | | | + +---------+ + + | EXTERNAL LAB | | | | + +---------+ + + Magnesium (05/23/2018 12:13 PM PST) + + + + + + | Component | Value | Ref Range | Performed | Pathologist | | | | | At | Signature | + + + + + + | Magnesium | 2.1Comment: Testing | 1.7 - 2.4 mg/dL | EXTERNAL | | | | performed at [facility];[address] | | LAB | | | [address];[place], [place] | | | | | | [address] | | | | + + + [...] + +---------+ + + Basic Metabolic Panel (05/23/2018 12:13 PM PST) + + + + + + | Component | Value | Ref Range | Performed | Pathologist | | | | | At | Signature | + + + + + + | Na | 145 | 135 - 145 | EXTERNAL | | | | | mmol/L | LAB | | + + + + + + | K | 4.9Comment: SLT | 3.5 - 4.9 | EXTERNAL | | | | HEMOLYSIS | mmol/L | LAB | | + + + + + + | Cl | 106 | 99 - 109 mmol/L | EXTERNAL | | | | | | LAB | | + + + + + + | CO2 | 27 | 23 - 32 mmol/L | EXTERNAL | | | | | | LAB | | + + + + + + | Anion Gap | 17 | 5 - 20 mmol/L | EXTERNAL | | | | | | LAB | | + + + + + + | Glucose, | 93 | 65 - 99 mg/dL | EXTERNAL | | | Fasting | | | LAB | | + + + + + + | BUN | 13 | 8 - 25 mg/dL | EXTERNAL | | | | | | LAB | | + + + + + + | Creatinine | 1.07 | 0.70 - 1.30 | EXTERNAL | | | | | mg/dL | LAB | | + + + + + + | BUN/Creatin | 12 | | EXTERNAL | | | ine [...] | | | | | performed at [facility];[address] | | | | | [facility];[place], [place] | | | | | | [address] | | | | + + + + + + + + | Specimen | + + | Blood specimen | | (specimen) | + + + +---------+ + + | Performing | Address | City/State/Zipcode | Phone Number | | Organization | | | | + +---------+ + + | EXTERNAL LAB | | | | + +---------+ + + Tissue Request For Pathology (05/23/2018 11:00 AM PST) + + | Specimen | + + | Soft tissue sample | | (specimen) | + + + + + | Narrative | Performed At | + + + | SPECIMEN(S): A LEFT LUNG BULLAE SPECIMEN SOURCE: A. LEFT LUNG | EXTERNAL LAB | | BULLAE CLINICAL HISTORY: Left lung bullae FINAL PATHOLOGIC | | | DIAGNOSIS: Lung, left, wedge biopsy: [...] collapsed air-filled sac like structure. The uninvolved lung | | | parenchyma is pink and spongy. [employer] sections are | | | submitted in [...] component was | | | performed by [facility], [address] [place] [address] | | | (Commissioned [employer] Officer: Maranda Brown MD; CLIA# [id number]). | | | Professional interpretation was performed by [facility], | | | [facility], [address] [place] [address] | | | [id number]. Diagnostician: Danny Delaney MD Pathologist | | | Electronically Signed 05/24/2018 | | + + + + +---------+ + + | Performing | Address | City/State/Zipcode | Phone Number | | Organization | | | | + +---------+ + + | EXTERNAL LAB | | | | + +---------+ + + XR Chest 1 Vw (05/23/2018 10:42 AM PST) + + | Specimen | + + | | + + + + + | Impressions | Performed At | + + + | Left-sided chest tube seen, with tip at the apex. No pneumothorax | | | seen. Signed by: Jose Honeycutt Date/Time: 05/23/2018 10:56 AM | | + + + + + + | Narrative | Performed At | + + + | CHEST ONE VIEW CLINICAL INFORMATION: post-op COMPARISON: CT | | | CHEST WO CONTRAST (02/11/2018); FINDINGS: Left-sided chest tube tip | | | appears to project at the apex. No left pneumothorax appreciated. | | | Cardiomediastinal silhouette appears unremarkable. Areas of | | | scarring identified involving the mid to lower lungs. Bullous | | | changes identified at the left lung base. | | + + + + + | Procedure Note | + + | Johan Grove - 11/29/2018 8:06 PM PDT CHEST ONE [...] Date/Time: 05/23/2018 10:56 AM | + + Protime INR (05/23/2018 6:45 AM PST) + + + + + [...] | | | | | performed at [facility];[address] | | | | | | [address];[place], [place] | | | | | | [address] | | | | + + + [...] + +---------+ + + Type and Screen (05/23/2018 6:31 AM PST) + + + + + [...] + + + | BB BAND | [id number] | | EXTERNAL | | | | performed at [facility];[address] | | LAB | | | | [address];[place] | | | | | | [address] | | | | + + + [...] bleb | + + documented in this encounter
--- OUTSIDE RECORDS SUMMARY | ~2019-08-31 | XMS | Encounter Summary ---
Demographics + + + | Address | [address] | | | [place] [address] | + + + | Home Phone | | + + + | Preferred Language | Unknown | + + + | Marital Status | | + + + | Uatsdin Affiliation | 1013 | + + + | Race | Unknown | + + + | Ethnic Group | Unknown | + + + Author + + + | Author | [facility] | | | and [place] | + + + | Organization | [facility] | | | [...] Team Providers + +------+ + | Care Culinary Director Name | Role | Phone | [...] [address] | | | | | [place], | [place] | | | | | [place] [address] | [address] | | | | | [phone] | | | +--------+ + + + [...]
--- OUTSIDE RECORDS SUMMARY | ~2019-08-31 | XMS | Encounter Summary ---
Demographics + + + | Address | [address] | | | [place] [address] | + + + | Home Phone | | + + + | Preferred Language | Unknown | + + + | Marital Status | | + + + | Gnosticist Affiliation | 1013 | + + + | Race | Unknown | + + + | Ethnic Group | Unknown | + + + Author + + + | Author | [facility] | | | and [place] | + + + | Organization | [facility] | | | [...] Team Providers + +------+ + | Care Quality Improvement Engineer Name | Role | Phone | + +------+ + | Landen Schaffer MD | PCP | | + +------+ + Encounter Details +--------+ + + + + | Date | Type | Department | Care Team | Description | +--------+ + + + + | 05/27/ | Hospital | [facility] GENERIC IP | Conversion | Pain | | 2018 | Encounter | CONVERSION DEP [address] | Transaction, | | | | | [address] | Provider Unknown | | | | | [place] | [phone] | | | | | [address] | | | | | | [phone] | | | +--------+ + + + [...] [place] | | | | | | [address] | | | | | | | [...]
--- OUTSIDE RECORDS SUMMARY | ~2019-08-31 | XMS | Encounter Summary ---
Demographics + + + | Address | [address] | | | [place] [address] | + + + | Home Phone [...] Team Providers + +------+ + | Care Counseling Services Manager Name | Role | Phone | + +------+ + | Landen Schaffer MD | PCP | | + +------+ + Encounter Details +--------+ + + + + | Date | Type | Department | Care Team | Description | +--------+ + + + + | 05/10/ | Hospital | [facility] MEDICAL | Conversion | | | 2019 | Encounter | CENTER [facility] | Transaction, | | | | | CLINIC [address] | Provider Unknown | | | | | [place]ER | [phone] | | | | | [address] | | | | | | [phone] | | | +--------+ + + + [...] [place] | | | | | | [address] | | | | | | | [...] | | | Patient | performed at [facility];[address] | | LAB | | | | [address];[place], [place] | | | | | | [address] | | | | + + + [...] | | | | performed at [facility];[address] | | | | | | [address] [facility];[place], [place] | | | | | | [address] | | | | + + + [...] | | | | | [place] [address] | | | | + + + [...] | | | | | performed at [facility], [address] | | | | | | [facility], | | | | | | [place] [address] | | | | + + + [...] NEGATIVE Testing | | | performed at [facility];[address] [facility];[place] [address] | | + + + + +---------+ [...] | | | Screen | performed at [facility];[address] | | LAB | | | | [address];[place], [place] | | | | | | [address] | | | | + + + [...]
--- OUTSIDE RECORDS SUMMARY | ~2019-08-31 | XMS | Encounter Summary ---
Demographics + + + | Address | [address] | | | [place] [address] | + + + | Home Phone | | + + + | Preferred Language | Unknown | + + + | Marital Status | | + + + | Orthodoxy Affiliation | 1013 | + + + | Race | Unknown | + + + | Ethnic Group | Unknown | + + + Author + + + | Author | [facility] | | | and [place] | + + + | Organization | [facility] | | [...] Team Providers + +------+ + | Care Investigative Agent Name | Role | Phone | + [...] + + | 07/12/ | Telephone | [facility] | Cholo Sullivan | Appointment (Cancel | | 2019 | | GASTROENTEROLOGY | MD Chuy [address] | 07/17) | | | | [address] | [place] [address] | | | | | [place], [place] | [phone] | | | | | [address] | | | | | | [phone] | | | +--------+ + + + [...] [place] | | | | | | [address] | | | | | | | | +--------+ + + + + documented as of this encounter Visit Diagnoses Not on filedocumented in this encounter"
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
--- OUTSIDE RECORDS SUMMARY | ~2019-08-31 | XMS | Encounter Summary ---
Demographics + + + | Address | [address] | | | [place] [address] | + + + | Home Phone | | + + + | Preferred Language | Unknown | + + + | Marital Status | | + + + | Confucianism Affiliation | 1013 | + + + | Race | Unknown | + + + | Ethnic Group | Unknown | + + + Author + + + | Author | [facility] | | | and [place] | + + + | Organization | [facility] | | | [...] Team Providers + +------+ + | Care Numerical Control Tool Programmer Name | Role | Phone | + +------+ + | Landen Schaffer MD | PCP | | + +------+ + Encounter Details +--------+ + + + + | Date | Type | Department | Care Team | Description | +--------+ + + + + | 09/21/ | [facility] | [facility] | Cholo Sullivan | Encounter for | | 2019 | Encounter | [facility] MAINOR Vera MD [address] | removal of biliary | | | | INTRA OP [address] | [place] [address] | stent | | | | BLVD [place], [place] | [phone] | | | | | [address] | | | | | | [phone] | | | +--------+ + + + [...] 09/21/18722 Date of Service: 09/21/18721 Status: Signed Reimbursement Spec: Cholo Sullivan MD (Physician) [facility] Service: Gastroenterology Brief Post-op Discharge Note DISCHARGE [...] Your Medications These medications were sent to [facility] [place], [place] - [address] [facility] [address] omeprazole 20 MG capsule Cholo Sullivan MD [...] [place] | | | | | | [id number] | | | | | | | [...] + + | Historically converted procedure from [facility] Epic environment | EXTERNAL LAB | | [facility] GI | | | | | | [...] Number of | | | Addenda: 0 [facility] - Endoscopy | | | Services | [...]
--- OUTSIDE RECORDS SUMMARY | ~2019-08-31 | XMS | Clinical Summary ---
Demographics + + + | Address | [address] | | | [place] [address] | + + + | Home Phone [...] Team Providers + +------+ + | Care Turning Sander Operator Name | Role | Phone | [...] Overview: Added automatically from request for surgery [id number] | + + + + + | [...] Overview: Added automatically from request for surgery [id number] | + + + + + | [...] | | Visit | | [place] | | | | | | [phone] | | | | | | | [...] N/A: | [place] | | 01/26/ | [id number] | | [id number]: Qty: 1 on | | Bile | SCIENTIFIC | | 2019 | 320 / | | 08/03/2018 by Laurie, | | Duct | TYLER - BSCI | | | /[id number] | | Cholo Vera MD | | [...] +--------+ +---------+--------+ | MEDICARE | [facility] | [id number] | 08/18/19 | [phone] | | Medica | | | AD | | 04-Pre | 5 | | re | | | MEDICA | | sent | | | | | | RE | | | | | | + +--------+ +--------+ +---------+--------+ | MEDICARE | [facility]RO | [id number] | 08/18/19 | [phone] | | Medica [...] Vishnu | al/Fam | | 1955 | [phone] | [place] | | | jeanne | | | 0 (Home) | [address] | + +--------+ +--------+ + + | Mason Champion | Person | Self | [birth year] | [address] | | Vishnu | al/Fam | | 8 | [phone] | [place] | | | jeanne | | | 0 (Home) | [address] | + +--------+ +--------+ + + Advance Directives + + + + + | Type | Date Recorded | Patient | Explanation | | | | Safety Deposit Supervisor | | + + + + + | Power of | | | | | Aircraft Machinist | | | | + + + + + | Advance | | | | | Directive | | | | + + + + +"
--- OUTSIDE RECORDS SUMMARY | ~2019-08-31 | XMS | Encounter Summary ---
Demographics + + + | Address | [address] | | | [place] [address] | + + + | Home Phone | | + + + | Preferred Language | Unknown | + + + | Marital Status | | + + + | Anglican Affiliation | 1013 | + + + | Race | Unknown | + + + | Ethnic Group | Unknown | + + + Author + + + | Author | [facility] | | | and [place] | + + + | Organization | [facility] | | [...] Providers + +------+ + | Care Manager Part Name | Role | Phone | + +------+ + PCP | Unavailable | + +------+ + Encounter Details +--------+ + + + + | Date | Type | Department | Care Team | Description | +--------+ + + + + | 02/09/ | Hospital | [facility] | | | | 1993 | Encounter | MED CTR XRAY [address] | | | | | | [place] | | | | | | [place] [address] | | | | | | [phone] | | | +--------+ + + + [...] [place] | | | | | | [address] | | | | | | | | +--------+ + + + + documented as of this encounter Visit Diagnoses Not on filedocumented in this encounter"
--- OUTSIDE RECORDS SUMMARY | ~2019-08-31 | XMS | Encounter Summary ---
Demographics + + + | Address | [address] | | | [place] [address] | + + + | Home Phone [...] Team Providers + +------+ + | Care Line Prep Cook Name | Role | Phone | + [...] + + | 12/23/ | Office | [facility] | Michele Motta MD | Bloating (Primary | | 2019 | Visit | GENERAL SURGERY [address] | [address] [place] | Dx); Postprandial | | | | [address] | [address] [place], [place] | epigastric pain | | | | [place], [place] | [address] | | | | | [address] | | | | | | [phone] | | | +--------+---------+ + + + [...] sign of hernias. Abdomen is nontender. Assessment Office Technician postoperative bloating and diarrhea following Janene fundoplication. Recent increase in postprandial epigastric discomfort. Plan Trial of Questran Will obtain upper GI fluoroscopic study today if possible to evaluate status of the wrap in the position of the stomach. Michele Motta MD 12/23/2018 documented in t his encounter Plan of Treatment +--------+ + + + + | Date | Type | Specialty | Care Team | Description | +--------+ + + + + | 09/03/ | Virtual | Pulmonology | Tristian Foote MD | | | 2019 | Office | | [address] | | | | Visit | | [place], [place] | | | | | | [address] | | | | | | | | +--------+ + + + + documented as of this encounter Visit Diagnoses + + | Diagnosis | + + | Bloating - Primary Flatulence, eructation, and gas pain | + + | Postprandial epigastric pain Abdominal pain, epigastric | + + documented in this encounter"
--- OUTSIDE RECORDS SUMMARY | ~2019-08-31 | XMS | Encounter Summary ---
Demographics + + + | Address | [address] | | | [place] [address] | + + + | Home Phone | | + + + | Preferred Language | Unknown | + + + | Marital Status | | + + + | Scientology Affiliation | 1013 | + + + [...] Team Providers + +------+ + | Care Cloth Desizing Range Operator Chief Name | Role | Phone | + [...] + + | 12/21/ | Telephone | [facility] | Michele Motta MD | Follow-up | | 2019 | | GENERAL SURGERY [address] | [address] [place] | (reschedule) | | | | [address] | [address] [place], [place] | | | | | [place], [place] | [address] | | | | | [address] | | | | | | [phone] | | | +--------+ + + + [...] | | | Visit | | [facility] | | | | | | [id number] | | | | | | | | +--------+ + + + + documented as of this encounter Visit Diagnoses Not on filedocumented in this encounter"
--- OUTSIDE RECORDS SUMMARY | ~2019-08-31 | XMS | Encounter Summary ---
Demographics + + + | Address | [address] | | | [place] [address] | + + + | Home Phone | | + + + | Preferred Language | Unknown | + + + | Marital Status | | + + + | Adventism Affiliation | 1013 | + + + [...] Team Providers + +------+ + | Care Medical Laboratory Assistant Name | Role | Phone | + +------+ + | Landen Schaffer MD | PCP | | + +------+ + Encounter Details +--------+ + + + + | Date | Type | Department | Care Team | Description | +--------+ + + + + | 06/22/ | Hospital | [facility] | Michele Motta MD | | | 2019 | Encounter | [facility] | [address] | | | | | INTRA OP [address] | [address] [place], [place] | | | | | [address]VD [place], [place] | [address] | | | | | [address] | | | | | | [phone] | | | +--------+ + + + [...] Summaries by Michele Motta MD at 06/22/18 4884 Author: Michele Motta MD Service: General Surgery Author Type: Physician Filed: 06/22/18 1854 Date of Service: 06/22/18 9980 Status: Signed Manager Eligibility: Michele Motta MD (Physician) [facility] Service: General Surgery Brief Post-op [...] on file. Follow up: Michele Motta MD [address] [place] [address] In 1 week for routine post operative visit. Maria Vieira PA-C [address] [place] [address] Medication List CONTINUE [...] TRIANA | | | | | | [address] | | | | | | | [...] | | | performed at [facility] | | | | | | [facility];[place], [place] | | | | | | [address] | | | | + + + [...]
--- OUTSIDE RECORDS SUMMARY | ~2019-08-31 | XMS | Encounter Summary ---
Demographics + + + | Address | [address] | | | [place] [address] | + + + | Home Phone | | + + + | Preferred Language | Unknown | + + + | Marital Status | | + + + | Pentecostalism Affiliation | 1013 | + + + | Race | Unknown | + + + | Ethnic Group | Unknown | + + + Author + + + | Author | [facility] | | | and [place] | + + + | Organization | [facility] | | [...] Team Providers + +------+ + | Care Destination Imagination Coordinator Name | Role | Phone | + +------+ + | Landen Schaffer MD | PCP | | + +------+ + Encounter Details +--------+ + + + + | Date | Type | Department | Care Team | Description | +--------+ + + + + | 05/23/ | Hospital | [facility] | Samson Limon MD | Lung bullae (HCC) | | 2019 - | Encounter | [facility] | [address] | | | | | [address] | [place], [place] | | | 05/24/ | | [place], [place] | [address] | | | 2018 | | [address] | | | | | | [phone] | | | +--------+ + + + [...] and Vascular Surgery Author Ty pe: Physician Health Actuary - Certified Filed: 05/24/18 0841 Date of Service: 05/24/1845 Status: Signed Fireworks Assembly Supervisor: Ernst Victoria PA-C (Physician Health Actuary - Certified) Cosigner: Samson Limon MD at 05/24/18 6626 Service: Cardiothoracic Surgery Discharge Summary Pt: Mason [...] ARTHROSCOPY Allergies Allergen Reactions Spiriva Handihaler [Tiotropium Muse Monohydrate] Shortness of Breath Prescriptions Prior to [...] 11/21/18 Follow up: Samson Limon MD [address] [phone] Schedule an appointment as soon as possible for a visit on 06/07/2018 Post-Op Maria Vieira PA-C [address] [place] [address] Schedule an appointment as [...] medications were sent to [facility] - [place], [place] - [place] [address] [address], [place] [address] [place], [address] [address] acetaminophen 500 MG tablet gabapentin 300 MG [...] Date of Service: 05/24/18 1302 Status: Signed Fireworks Assembly Supervisor: Shara Bauer RN (Registered Nurse) Discharge information [...] Author: JACKSON Greene Service: (none) Author Type: Plumbing Installer Filed: 05/24/18 1116 Date of Service: 05/24/18924 Status: Addendum Fireworks Assembly Supervisor: JACKSON Greene (Plumbing Installer) Related Notes: Original Note by JACKSON Greene (Plumbing Installer) filed at 05/24/18 0934 05/24/18 09 Discharge [...] No Prescription Plan Yes Name of Pharmacy ([facility]) Anticipated Disposition Facility Type Home Medicare Important Message (DOM) Given (DOM given on 05/23/18) BACK ORDER CLERK met with Pt and discussed discharge planning, [...] Medication coverage/concerns: Pt states [facility] for discharge medications. Pt consented for Rx Pharmacy for bedside delivery with Too Victoria PA-C. BACK ORDER CLERK fo llowed up with Pt received discharge medications for Rx Pharmacy bedside delivery. Community resources utilized / needed: None requested at this time. Assistance in transportation: Pt friend (Refugio) will be coming Identification of any specific education / training: None Barriers to Discharge / Alternative housing needed: None Anticipated DCP: Home CARY IZQUIERDO, Plumbing Installer [phone] cell Ernst España PA - 05/24/2018 8:24 AM PST Progress Notes by Ernst Victoria PA-C at 05/24/18 0824 Author: Ernst Victoria PA-C Service: Cardiac, Thoracic, and Vascular Surgery Author Ty pe: Physician Health Actuary - Certified Filed: 05/24/18828 Date of Service: 05/24/18823 Status: Attested Fireworks Assembly Supervisor: Ernst Victoria PA-C (Physician Health Actuary - Certified) Cosigner: Samson Limon MD at 05/24/18 1343 Attestation signed by Samson Limon MD at 05/24/18 1343 Patient was seen, examined, labs, x-rays, treatment plan reviewed. Located Within [facility] Service: Cardiothoracic Surgery Progress Note ROOM: 9103/9103-1 [...] hours. No results for input(s): PHART, PO2ART, LHD7PDM, M6IDULII, BEART in the last 168 hours. Recent [...] 05/24/1851 Date of Service: 05/24/18643 Status: Signed Fireworks Assembly Supervisor: Cary Andre RN (Registered Nurse) Pt had [...] 184 Date of Service: 05/23/181827 Status: Signed Fireworks Assembly Supervisor: Ines Fish RN (Registered Nurse) Dressing c/d/I [...] 05/23/181223 Date of Service: 05/23/181223 Status: Signed Fireworks Assembly Supervisor: Kirstin Pollack RPH (Pharmacist) Clinical Pharmacy Note: [...] [place] | | | | | | 507382 | | | | | | | [...] | | | Basophils | performed at [facility], [address] | [address] | LAB | | | | [address], | | | | | | [place] [address] | | | | + + + [...] [address], | | | | | | [place] [address] | | | | + + + [...] | | | | | performed at [facility], [address] | | | | | | [facility], | | | | | | [place] [address] | | | | + + + [...] | | | | | performed at [facility] | | | | | | [facility];[place], [place] | | | | | | [address] | | | | + + + [...] EXTERNAL | | | | performed at [facility];[address] | | LAB | | | [address];[place], [place] | | | | | | [address] | | | | + + + [...] | | | | | | MDRD [facility] traceable | | | | | | equation.Testing | | | | | | performed at [facility];[address] | | | | | | [facility];[place], [place] | | | | | | [address] | | | | + + + [...] | | parenchyma is pink and spongy. Moss Picker sections are | | | submitted in [...] component was | | | performed by [employer], [address] [place] [address] | | | (Elevated Guard: Maranda Brown MD; CLIA# [id number]). | | | Professional interpretation was performed by [employer], | | | [facility], [address] [place] [address] | | | [id number]. Diagnostician: Danny Delaney MD Pathologist | | [...] | | | | | performed at [facility];[address] | | | | | | [address];[place], [place] | | | | | | [address] | | | | + + + [...] + + + | BB BAND | [id number] | | EXTERNAL | | | | performed at [facility];[address] | | LAB | | | | [address];[place] | | | | | | [address] | | | | + + + [...]
--- OUTSIDE RECORDS SUMMARY | ~2019-08-31 | XMS | Encounter Summary ---
Demographics + + + | Address | [address] | | | [place] [address] | + + + | Home Phone [...] | Author | [facility] | | | and [place] | + + + | Organization | [facility] | | | and [...] Team Providers + +------+ + | Care Retail Office Associate Name | Role | Phone | [...] + + | 12/23/ | Office | [facility] | Michele Motta MD | Bloating (Primary | | 2019 | Visit | GENERAL SURGERY [address] | [address] [place] | Dx); Postprandial | | | | [address] | [address] [place], [place] | epigastric pain | | | | [place], [place] | [address] | | | | | [address] | | | | | | [phone] | | | +--------+---------+ + + + [...] sign of hernias. Abdomen is nontender. Assessment Pipe Recovery Specialist postoperative bloating and diarrhea following Janene fundoplication. [...] | Visit | | Michael [place], [place] | | | | | | [address] | | | | | | | | +--------+ + + + + documented as of this encounter Visit Diagnoses + + | Diagnosis | + + | Bloating - Primary Flatulence, eructation, and gas pain | + + | Postprandial epigastric pain Abdominal pain, epigastric | + + documented in this encounter"
--- OUTSIDE RECORDS SUMMARY | ~2019-08-31 | XMS | Encounter Summary ---
Demographics + + + | Address | [address] | | | [place] [address] | + + + | Home Phone | | + + + | Preferred Language | Unknown | + + + | Marital Status | | + + + | Gnosticist Affiliation | 1013 | + + + | Race | Unknown | + + + | Ethnic Group | Unknown | + + + Author + + + | Author | [facility] | | | and [place] | + + + | Organization | [facility] | | | and [...] Team Providers + +------+ + | Care Clipper And Turner Name | Role | Phone | + [...] + + | 08/28/ | Telephone | [facility] | Tristian Foote MD | Other (CT Scan) | | 2020 | | PULMONOLOGY [address] | [address] | | | | | [address] | [place], [place] | | | | | [place], [place] | [address] | | | | | [address] | | | | | | [phone] | | | +--------+ + + + [...] | | Visit | | [place] | | | | | | [address] | | | | | | | | +--------+ + + + + documented as of this encounter Visit Diagnoses Not on filedocumented in this encounter"
--- OUTSIDE RECORDS SUMMARY | ~2019-08-31 | XMS | Encounter Summary ---
Demographics + + + | Address | [address] | | | [place] [address] | + + + | Home Phone | | + + + | Preferred Language | Unknown | + + + | Marital Status | | + + + | Orthodox Affiliation | 1013 | + + + | Race | Unknown | + + + | Ethnic Group | Unknown | + + + Author + + + | Author | [facility] | | | and [place] | + + + | Organization | [facility] | [...] Team Providers + +------+ + | Care Harness And Bag Inspector Name | Role | Phone | [...] + + | 12/28/ | Telephone | [facility] | Michele Motta MD | Results, Imaging | | 2019 | | GENERAL SURGERY [address] | [address] [place] | | | | | [address] | [address] [place], [place] | | | | | [place], [place] | [address] | | | | | [address] | | | | | | [phone] | | | +--------+ + + + [...] [place] | | | | | | [address] | | | | | | | | +--------+ + + + + documented as of this encounter Visit Diagnoses Not on filedocumented in this encounter"
--- OUTSIDE RECORDS SUMMARY | ~2019-08-31 | XMS | Clinical Summary ---
Demographics + + + | Address | [address] | | | [place] [address] | + + + | Home Phone | | + + + | Preferred Language | Unknown | + + + | Marital Status | | + + + | Jainism Affiliation | 1013 | + + + | Race | Unknown | + + + | Ethnic Group | Unknown | + + + Author + + + | Author | [facility] [employer] (Historical as of | | | 12-03-18) | + + + | Organization | 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
--- OUTSIDE RECORDS SUMMARY | ~2019-08-31 | XMS | Encounter Summary ---
Demographics + + + | Address | [address] | | | [place] [address] | + + + | Home Phone | | + + + | Preferred Language | Unknown | + + + | Marital Status | | + + + | Buddhist Affiliation | 1013 | + + + | Race | Unknown | + + + | Ethnic Group | Unknown | + + + Author + + + | Author | [facility] | | | and [place] | + + + | Organization | [facility] | | | [...] Team Providers + +------+ + | Care Management Trainee Marketing Name | Role | Phone | [...] + + | 03/10/ | Refill | [facility] | Tristian Foote MD | Medication Refill | | 2019 | | PULMONOLOGY [address] | [address] | | | | | [address] | [place], [place] | | | | | [place], [place] | [address] | | | | | [address] | | | | | | [phone] | | | +--------+--------+ + + + [...] [place] | | | | | | [address] | | | | | | | | +--------+ + + + + documented as of this encounter Visit Diagnoses Not on filedocumented in this encounter"
--- OUTSIDE RECORDS SUMMARY | ~2019-08-31 | XMS | Encounter Summary ---
Demographics + + + | Address | [address] | | | [place] [address] | + + + | Home Phone [...] Team Providers + +------+ + | Care Sterile Process Coordinator Name | Role | Phone | [...] + + | 12/15/ | Telephone | [facility] | Michele Motta MD | Other (message for | | 2019 | | GENERAL SURGERY [address] | [address] [place] | Dr. Motta) | | | | [address] | [address] [place], [place] | | | | | [place], [place] | [address] | | | | | [address] | | | | | | [phone] | | | +--------+ + + + [...] | | Visit | | Michael [place] | | | | | | [address] | | | | | | | | +--------+ + + + + documented as of this encounter Visit Diagnoses Not on filedocumented in this encounter"
--- OUTSIDE RECORDS SUMMARY | ~2019-08-31 | XMS | Encounter Summary ---
Demographics + + + | Address | [address] | | | [place] [address] | + + + | Home Phone | | + + + | Preferred Language | Unknown | + + + | Marital Status | | + + + | Christian Affiliation | 1013 | + + + [...] Team Providers + +------+ + | Care Embedded Developer Name | Role | Phone | + +------+ + | Landen Schaffer MD | PCP | | + +------+ + Encounter Details +--------+ + + + + | Date | Type | Department | Care Team | Description | +--------+ + + + + | 02/22/ | Hospital | [facility] | Conversion | Pain | | 2018 | Encounter | CONVERSION DEP [address] | Transaction, | | | | | [address] | Provider Unknown | | | | | [place] | [phone] | | | | | [address] | | | | | | [phone] | | | +--------+ + + + [...] [place] | | | | | | [address] | | | | | | | [...]
--- OUTSIDE RECORDS SUMMARY | ~2019-08-31 | XMS | Encounter Summary ---
Demographics + + + | Address | [address] | | | [place] [address] | + + + | Home Phone [...] Team Providers + +------+ + | Care Title I Paraprofessional Name | Role | Phone | + [...] | | | | | Complete | [place] | [address] | | | | | | [address] | Phone: | | | | | | Phone: | [phone] | | | | | | [phone] | Fax: | | | | | | Fax: | [phone] | | | | | | [phone] | | + +--------+ + + + + Encounter Details +--------+ + + + + | Date | Type | Department | Care Team | Description | +--------+ + + + + | 08/27/ | Orders Only | [facility] | Tristian Foote MD | Pulmonary HTN (HCC) | | 2020 | | PULMONOLOGY [address] | [address] | (Primary Dx) | | | | [address] | Michael [place] | | | | | [place] | [address] | | | | | [address] | | | | | | [phone] | | | +--------+ + + + [...] | | Visit | | Michael E [place], [place] | | | | | | [address] | | | | | | | [...]
--- OUTSIDE RECORDS SUMMARY | ~2019-08-31 | XMS | Encounter Summary ---
Demographics + + + | Address | [address] | | | [place] [address] | + + + | Home Phone | | + + + | Preferred Language | Unknown | + + + | Marital Status | | + + + | Orthodoxy Affiliation | 1013 | + + + | Race | Unknown | + + + | Ethnic Group | Unknown | + + + Author + + + | Author | [facility] | | | and [place] | + + + | Organization | [facility] | | | [...] Team Providers + +------+ + | Care Olericulturist Name | Role | Phone | + +------+ + | Maria Vieira | PCP | | + +------+ + Encounter Details +--------+ + + + + | Date | Type | Department | Care Team | Description | +--------+ + + + + | 12/23/ | Hospital | [facility] | Michele Motta MD | Bloating; | | 2019 | Encounter | CENTER OPIC XRAY | [address] | Postprandial | | | | [address] | [address] [place], [place] | epigastric pain | | | | [address] [place], [place] | [address] | | | | | [address] | | | | | | [phone] | Yuri Pradoc Pro | | +--------+ [...] 2 tablets by | | 0 | 02//20 | | | (TYLENOL) 500 mg | [...] [place] | | | | | | [address] | | | | | | | [...] | | | 1445, For 1 dose, Shake well., | | | | | | | Radiology | | | | | | + +--------+ +---------+------+------+ +---+---+ | | | +---+---+ documented in this encounter"
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
--- OUTSIDE RECORDS SUMMARY | ~2019-08-31 | XMS | Encounter Summary ---
Demographics + + + | Address | [address] | | | [place] [address] | + + + | Home Phone | | + + + | Preferred Language | Unknown | + + + | Marital Status | | + + + | Religion Affiliation | 1013 | + + + | Race | Unknown | + + + | Ethnic Group | Unknown | + + + Author + + + | Author | [facility] | | | and [place] | + + + | Organization | [facility] | | | [...] Team Providers + +------+ + | Care Para Machine Operator Name | Role | Phone | + +------+ + | Maria Vieira | PCP | | + +------+ + Encounter Details +--------+ + + + + | Date | Type | Department | Care Team | Description | +--------+ + + + + | 12/23/ | Hospital | [facility] | Michele Motta MD | Bloating; | | 2019 | Encounter | CENTER OPIC XRAY | [address] | Postprandial | | | | [address] | [address] [place], [place] | epigastric pain | | | | [address] [place], [place] | [address] | | | | | [address] | | | | | | [phone] | Yuri Pradoc Pro | | +--------+ [...] [place] | | | | | | [address] | | | | | | | [...]
--- OUTSIDE RECORDS SUMMARY | ~2019-08-31 | XMS | Encounter Summary ---
Demographics + + + | Address | [address] | | | [place] [address] | + + + | Home Phone | | + + + | Preferred Language | Unknown | + + + | Marital Status | | + + + | Alevism Affiliation | 1013 | + + + [...] Team Providers + +------+ + | Care Assessment Consultant Name | Role | Phone | + [...] [address] | | | | | [place], | [place] | | | | | [place] [address] | [address] | | | | | [phone] | | | +--------+ + + + [...]
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
--- OUTSIDE RECORDS SUMMARY | ~2019-08-31 | XMS | Encounter Summary ---
Demographics + + + | Address | [address] | | | [place] [address] | + + + | Home Phone [...] Team Providers + +------+ + | Care Sandblaster Supervisor Name | Role | Phone | [...] + + | 12/28/ | Telephone | [facility] | Michele Motta MD | Results, Imaging | | 2019 | | GENERAL SURGERY [address] | [address] | | | | | [address] | [address] [place], [place] | | | | | [place], [place] | [address] | | | | | [address] | | | | | | [phone] | | | +--------+ + + + [...] [place] | | | | | | [address] | | | | | | | | +--------+ + + + + documented as of this encounter Visit Diagnoses Not on filedocumented in this encounter"
--- OUTSIDE RECORDS SUMMARY | ~2019-08-31 | XMS | Encounter Summary ---
Demographics + + + | Address | [address] | | | [place] [address] | + + + | Home Phone [...] Team Providers + +------+ + | Care Wrapper Sizer Name | Role | Phone | + +------+ + | Landen Schaffer MD | PCP | | + +------+ + Encounter Details +--------+ + + + + | Date | Type | Department | Care Team | Description | +--------+ + + + + | 06/06/ | [facility] | [facility] | Conversion | Lung bullae (HCC) | | 2019 | Encounter | [facility] XRAY | Transaction, | | | | | [address] | Provider Unknown | | | | | [place], [place] | [phone] | | | | | [address] | | | | | | [phone] | Ernst Victoria PA | | | | | | [address] | | | | | | [place], [place] | | | | | | [address] | | | | | | | [...] [place] | | | | | | [address] | | | | | | | [...]
--- OUTSIDE RECORDS SUMMARY | ~2019-08-31 | XMS | Encounter Summary ---
Demographics + + + | Address | [address] | | | [place] [address] | + + + | Home Phone | | + + + | Preferred Language | Unknown | + + + | Marital Status | | + + + | Taoist Affiliation | 1013 | + + + | Race | Unknown | + + + | Ethnic Group | Unknown | + + + Author + + + | Author | [facility] | | | and [place] | + + + | Organization | [facility] | | [...] Team Providers + +------+ + | Care Soiled Linen Distributor Name | Role | Phone | + [...] + + | 12/16/ | Telephone | [facility] | Michele Motta MD | Chest Pain Follow-up | | 2019 | | GENERAL SURGERY [address] | [address] | | | | | [address] | [address] [place], [place] | | | | | [place], [place] | [address] | | | | | [address] | | | | | | [phone] | | | +--------+ + + + [...] | | Visit | | [place] | | | | | | [address] | | | | | | | | +--------+ + + + + documented as of this encounter Visit Diagnoses Not on filedocumented in this encounter"
--- OUTSIDE RECORDS SUMMARY | ~2019-08-31 | XMS | Encounter Summary ---
Demographics + + + | Address | [address] | | | [place] [address] | + + + | Home Phone | | + + + | Preferred Language | Unknown | + + + | Marital Status | | + + + | Scientology Affiliation | 1013 | + + + | Race | Unknown | + + + | Ethnic Group | Unknown | + + + Author + + + | Author | [facility] | | | and [place] | + + + | Organization | [facility] | | | [...] Team Providers + +------+ + | Care Grinding Wheel Inspector Name | Role | Phone | + +------+ + | Landen Schaffer MD | PCP | | + +------+ + Encounter Details +--------+ + + + + | Date | Type | Department | Care Team | Description | +--------+ + + + + | 11/08/ | Orders Only | [facility] | Provider, | Essential (primary) | | 2019 | | SYSTEM GENERIC OP | MD Rebecca [address] | hypertension; | | | | CONVERSION [address] | [address] | Shortness of breath; | | | | [address] [place], [place] | [place] [address] | Encounter for | | | | [address] | | screening for lipoid | | | | [phone] | | disorders; Long | | | [...] [place] | | | | | | [address] | | | | | | | [...] | Differential | | e | breath snf | 05/05/2018, Expires: | | | | [...] for lipoid disorders | + + | snf current use of anticoagulant Encounter for long-term [...]
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
--- OUTSIDE RECORDS SUMMARY | ~2019-08-31 | XMS | Encounter Summary ---
Demographics + + + | Address | [address] | | | [place] [address] | + + + | Home Phone | | + + + | Preferred Language | Unknown | + + + | Marital Status | | + + + | Druze Affiliation | 1013 | + + + | Race | Unknown | + + + | Ethnic Group | Unknown | + + + Author + + + | Author | [facility] | | | and [place] | + + + | Organization | [facility] | | | and [...] Team Providers + +------+ + | Care Blood Bank Specialist Name | Role | Phone | [...] + + | 07/12/ | Telephone | [facility] | Cholo Sullivan | Appointment (Cancel | | 2019 | | GASTROENTEROLOGY | MD Chuy [address] | 07/17) | | | | [address] | [place] [address] | | | | | [place], [place] | [phone] | | | | | [address] | | | | | | [phone] | | | +--------+ + + + [...] [place] | | | | | | [address] | | | | | | | | +--------+ + + + + documented as of this encounter Visit Diagnoses Not on filedocumented in this encounter"
--- OUTSIDE RECORDS SUMMARY | ~2019-08-31 | XMS | Encounter Summary ---
Demographics + + + | Address | [address] | | | [place] [address] | + + + | Home Phone | | + + + | Preferred Language | Unknown | + + + | Marital Status | | + + + | Orthodoxy Affiliation | 1013 | + + + | Race | Unknown | + + + | Ethnic Group | Unknown | + + + Author + + + | Author | [facility] | | | and [place] | + + + | Organization | [facility] | | [...] Team Providers + +------+ + | Care Storekeeper Helper Name | Role | Phone | + +------+ + PCP | Unavailable | + +------+ + Encounter Details +--------+ + + + + | Date | Type | Department | Care Team | Description | +--------+ + + + + | 02/09/ | Hospital | [facility] | | | | 1993 | Encounter | MED CTR XRAY [address] | | | | | | [place] | | | | | | [place] [address] | | | | | | [phone] | | | +--------+ + + + [...] [place] | | | | | | [address] | | | | | | | | +--------+ + + + + documented as of this encounter Visit Diagnoses Not on filedocumented in this encounter"
--- OUTSIDE RECORDS SUMMARY | 2019-08-31 16:26 | XMS ---
PreManage Notification: CATY VALLEJO Security Outpatient Clerk Events No recent Security Events currently on file CRITERIA MET - History of Sepsis CARE PROVIDERS ANNA JOHNS Physician Gasoline Pump Installer 08/02/2018-Current PHONE: [phone] Pasquale has no Care Guidelines for this patient. ENadine VISIT COUNT (12 MO.) 3 DAYNE Hernández TOTAL 3 NOTE: Visits indicate total known visits. ED/UCC VISIT TRACKING (12 MO.) 08/31/2019 16:23 [facility] [place] TYPE: Emergency COMPLAINT: - HEART ISSUE 07/24/2019 13:19 [facility] [place] TYPE: Emergency COMPLAINT: - SOB 02/25/2019 22:08 [facility] [place] TYPE: Emergency COMPLAINT: - URINE PROBLEM/ABD PAIN INPATIENT VISIT TRACKING (12 MO.) 07/24/2019 16:54 [facility] [place] TYPE: Medical Surgical COMPLAINT: - RESPIRATORY FAILURE DIAGNOSES: - skilled nursing (current) use of inhaled steroids - Unspecified asthma, uncomplicated - Acquired absence of lung [part of] - Do not resuscitate - Other nursing home (current) drug therapy - Chronic atrial fibrillation, unspecified - 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
--- NOTE | 2019-09-02 12:21 | EKG ---
[facility] [address] [place] [address] Signed Atrial fibrillation Right bundle branch block T wave abnormality, consider inferior ischemia Abnormal ECG When compared with ECG of 24-JUL-2019 13:42, Vent. rate has decreased BY 50 BPM Confirmed by ROSETTA BARTON DO ([id number]) on 09/02/2019 12:21:25 PM Electronically Signed By: ROSETTA BARTON DO 09/02/19 1221 PATIENT NAME: CATY VALLEJO Electrocardiogram DATE OF : 59 PHYSICIAN: ROSETTA BARTON DO REPORT #: [id number] REPORT IS CONFIDENTIAL AND NOT TO BE RELEASED WITHOUT AUTHORIZATION
--- NOTE | 2019-09-02 12:21 | EKG ---
[facility] [address] [facility] [place], [place] [address] Signed Atrial fibrillation Left axis deviation Right bundle branch block Abnormal ECG When compared with ECG of 31-AUG-2019 16:32, (Unconfirmed) No significant change was found Confirmed by ROSETTA BARTON DO ([id number]) on 09/02/2019 12:21:36 PM Electronically Signed By: ROSETTA BARTON DO 09/02/19 1221 PATIENT NAME: CATY VALLEJO Electrocardiogram DATE OF : 59 PHYSICIAN: ROSETTA BARTON DO REPORT #: [id number] REPORT IS CONFIDENTIAL AND NOT TO BE RELEASED WITHOUT AUTHORIZATION
== END ==
LOC: ED 16:22
DX: I44.2 Atrioventricular block, complete (principal); I48.91 Unspecified atrial fibrillation; J45.909 Unspecified asthma, uncomplicated; Z87.891 Personal history of nicotine dependence; Z88.8 Allergy status to other drugs, medicaments and biological substances; Z79.899 Other long term (current) drug therapy; Z79.01 Long term (current) use of anticoagulants; Z79.51 Long term (current) use of inhaled steroids
CPT/HCPCS: 71045; 80053; 83735; 84484; 85025; 85610; 93005; 93010; 96374; 99285-25; J2060

== ENCOUNTER 2019-09-15 15:02 | Emergency (ER) | payer MEDICARE ==
[~2019-09-15] VITALS: Ht 198.1 cm; Wt 83.0 kg
--- OUTSIDE RECORDS SUMMARY | ~2019-09-15 | XMS | Encounter Summary ---
Demographics + + + | Address | [address] | | | [place] [address] | + + + | Home Phone | | + + + | Preferred Language | Unknown | + + + | Marital Status | | + + + | Buddhism Affiliation | 1013 | + + + | Race | Unknown | + + + | Ethnic Group | Unknown | + + + Author + + + | Author | [facility] | | | and [place] | + + + | Organization | [facility] | | | and [place] | + + + | Address | Unknown | + + + | Phone | Unavailable | + + + Support + + +---------+ + | Name | Relationship | Address | Phone | + + +---------+ + | Sebastien Akira | ECON | Unknown | | + + +---------+ + Care Team Providers + +------+ + | Care Film Critic Name | Role | Phone | + +------+ + | Landen Schaffer MD | PCP | | + +------+ + Encounter Details +--------+ + + + + | Date | Type | Department | Care Team | Description | +--------+ + + + + | 06/06/ | [facility] | [facility] | Conversion | Lung bullae (HCC) | | 2019 | Encounter | [facility] | Transaction, | | | | | [address] | Provider Unknown | | | | | [place], [place] | [phone] | | | | | [address] | | | | | | [phone] | Ernst Victoria PA | | | | | | [address] | | | | | | [place], [place] | | | | | | [address] | | | | | | | | +--------+ + + + + Social History + +-------+ +--------+------+ | Tobacco Use | Types | Packs/Day | Years | Date | | | | | Used | | + +-------+ +--------+------+ | Never Smoker | | | | | + +-------+ +--------+------+ + + +---------+ + | Alcohol Use | Drinks/Week | oz/Week | Comments | + + +---------+ + | No | 0 Standard drinks | 0.0 | | | | or equivalent | | | + + +---------+ + + + + | Sex Assigned at | Date Recorded | | | | + + + | Not on file | | + + + + + + + | Job Start Date | Occupation | Industry | + + + + | Not on file | Not on file | Not on file | + + + + + + + + | Travel History | Travel Start | Travel End | + + + + + + | No recent travel history available. | + + documented as of this encounter Medications at Time of Discharge + + + +---------+ + + | Medication | Sig | Dispensed | Refills | Start | End Date | | | | | | Date | | + + + +---------+ + + | albuterol | Inhale 2 puffs into | | 0 | | | | (VENTOLIN HFA) 90 | the lungs every 6 | | | | | | mcg/puff inhaler | hours as needed for | | | | | | | Wheezing. | | | | | + + + +---------+ + + | omeprazole | Take 20 mg by mouth | | 0 | | | | (PRILOSEC) 20 mg | every morning | | | | | | capsule | (before breakfast). | | | | | + + + +---------+ + + | acetaminophen | Take 2 tablets by | | 0 | 05/24/19 | | | (TYLENOL) 500 mg | mouth every 8 | | | 19 | 0 | | tablet | (eight) hours. | | | | | + + + +---------+ + + | bisoprolol | Take 1 tablet by | | 0 | 05/05/19 | | | (ZEBETA) 10 MG | mouth daily. | | | 19 | 0 | | tablet | | | | | | + + + +---------+ + + | | Inhale 2 puffs into | | 0 | 01/18/20 | | | budesonide-formotero | the lungs 2 (two) | | | 18 | 9 | | l (SYMBICORT) | times daily. | | | | | | 160-4.5 mcg/puff | | | | | | | inhaler | | | | | | + + + +---------+ + + | fluticasone | Inhale 1 puff into | | 0 | | | | (FLOVENT HFA) 220 | the lungs 2 times | | | | 0 | | mcg/puff inhaler | daily. | | | | | + + + +---------+ + + | gabapentin | TAKE ONE CAPSULE BY | | 0 | 05/24/19 | | | (NEURONTIN) 300 mg | MOUTH THREE TIMES | | | 19 | 0 | | capsule | DAILY | | | | | + + + +---------+ + + | methocarbamol | TAKE ONE TABLET BY | | 0 | 05/24/19 | | | (ROBAXIN) 500 mg | MOUTH THREE TIMES | | | 19 | 0 | | tablet | DAILY NEEDED | | | | | + + + +---------+ + + | sildenafil | Take 50 mg by mouth | | 0 | | | | (VIAGRA) 50 MG | as needed for | | | | 0 | | tablet | Erectile | | | | | | | Dysfunction. | | | | | + + + +---------+ + + | warfarin | Take 4 mg by mouth | | 0 | | | | (COUMADIN) 4 MG | Daily. | | | | 0 | | tablet | | | | | | + + + +---------+ + + documented as of this encounter Plan of Treatment +--------+---------+ + + + | Date | Type | Specialty | Care Team | Description | +--------+---------+ + + + | 01/17/ | Office | Cardiology | Sarai Arce | | | 2019 | Visit | | [address] | | | | | | [address] | | | | | | [place] [address] | | | | | | [phone] | | | | | | | | +--------+---------+ + + + | 03/06/ | Office | Pulmonology | Tristian Foote MD | | | 2019 | Visit | | [address] | | | | | | [place] | | | | | | [address] | | | | | | | | +--------+---------+ + + + documented as of this encounter Procedures + +--------+ + + + | Procedure Name | Priori | Date/Time | Associated Diagnosis | Comments | | | ty | | | | + +--------+ + + + | XR CHEST 2 VIEWS | Routin | 06/06/2018 | | Results for this | | | e | 12:12 PM | | procedure are in the | | | | PST | | results section. | + +--------+ + + + documented in this encounter Results XR Chest 2 Vws (06/06/2018 12:12 PM PST) + + | Specimen | + + | | + + + + + | Impressions | Performed At | + + + | 1. Emphysematous change. 2. Large bulla in the left lung base again | | | defined on the lateral film. 3. Strandy atelectasis or scar in the | | | lung bases again noted. 4. Small hiatal hernia. Signed by: Evgeny, | | | Jesus Burgess Date/Time: 06/06/2018 1:30 PM | | + + + + + + | Narrative | Performed At | + + + | CHEST TWO VIEWS CLINICAL INFORMATION: Lung Bullae COMPARISON: XR | | | CHEST 2 VIEW FRONTAL AND LATERAL (05/24/2018); XR CHEST 1 VIEW | | | (05/24/2018); XR CHEST 1 VIEW (05/23/2018); CT CHEST WO CONTRAST | | | (02/11/2018); FINDINGS: Previous left apical pneumothorax has | | | resolved. Hyperinflation with flattening of the hemidiaphragms | | | again noted with emphysematous change again noted, better defined on | | | CT of 02/11/2018. The large bulla noted in the posteromedial left | | | lung base on CT 02/11/2018 is partially defined on the lateral film | | | measuring 12.3 cm superoinferior dimension. There are no infiltrates | | | or effusions. Strandy changes in the bilateral lung bases and right | | | lung apex again noted. Heart size is normal. Small hiatal hernia | | | again noted. | | + + + + + | Procedure Note | + + | Perfecto, Rad Conversion - 11/29/2018 8:06 PM PDT CHEST TWO VIEWS | | CLINICAL INFORMATION: | | Lung Bullae | | COMPARISON: | | XR CHEST 2 VIEW FRONTAL AND LATERAL (05/24/2018); XR CHEST 1 VIEW | | (05/24/2018); XR CHEST 1 VIEW (05/23/2018); CT CHEST WO CONTRAST | | (02/11/2018); | | FINDINGS: | | Previous left apical pneumothorax has resolved. Hyperinflation with | | flattening of the hemidiaphragms again noted with emphysematous change | | again noted, better defined on CT of 02/11/2018. The large bulla noted | | in the posteromedial left lung base on CT 02/11/2018 is partially | | defined on the lateral film measuring 12.3 cm superoinferior dimension. | | There are no infiltrates or effusions. Strandy changes in the | | bilateral lung bases and right lung apex again noted. Heart size is | | normal. Small hiatal hernia again noted. | | IMPRESSION: | | 1. Emphysematous change. | | 2. Large bulla in the left lung base again defined on the lateral film. | | 3. Strandy atelectasis or scar in the lung bases again noted. | | 4. Small hiatal hernia. | | Signed by: Jesus Pepper | | Sign Date/Time: 06/06/2018 1:30 PM | + + documented in this encounter Visit Diagnoses + + | Diagnosis | + + | Lung bullae (HCC) Emphysematous bleb | + + documented in this encounter"
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
--- OUTSIDE RECORDS SUMMARY | ~2019-09-15 | XMS | Encounter Summary ---
Demographics + + + | Address | [address] | | | [place] [address] | + + + | Home Phone | | + + + | Preferred Language | Unknown | + + + | Marital Status | | + + + | Mormonism Affiliation | 1013 | + + + | Race | Unknown | + + + | Ethnic Group | Unknown | + + + Author + + + | Author | [facility] | | | and [place] | + + + | Organization | [facility] | | | and [...] Team Providers + +------+ + | Care Lean Six Sigma Senior Specialist Name | Role | Phone | + +------+ + | Landen Schaffer MD | PCP | | + +------+ + Encounter Details +--------+ + + + + | Date | Type | Department | Care Team | Description | +--------+ + + + + | 08/19/ | Orders Only | [facility] | Tristian Foote MD | | | 2018 | | CONVERSION [address] | [address] | | | | | [place] | [place] | | | | | [place], [place] | [address] | | | | | [address] | | | | | | [phone] | | | +--------+ + + + [...] | | | | | [place] [address] | | | | | | [phone] | | | | | | | | +--------+---------+ + + + | 03/06/ | Office | Pulmonology | Tristian Foote MD | | | 2019 | Visit | | [address] | | | | | | [place] | | | | | | [id number] | | | | | | | | +--------+---------+ + + + documented as of this encounter Procedures + +--------+ + + + | Procedure Name | Priori | Date/Time | Associated Diagnosis | Comments | | | ty | | | | + +--------+ + + + | ECHO INTERPRETATION | Routin | 08/19/2017 | | Results for this | | OF OUTSIDE FILMS | e | 1:27 PM | | procedure are in the | | | | PDT | | results section. | + +--------+ + + + documented in this encounter Results ECHO Interpretation of Outside Films (08/19/2017 1:27 PM PDT) + + | Specimen | + + | | + + + + + | Impressions | Performed At | + + + | 1. The left ventricle is normal in size,wall thickness and systolic | | | function EF 55-60%. 2. The right ventricle is moderately enlarged | | | with mildly impaired systolic function. 3. Mild mitral regurgitation | | | and severely dilated left atrium. 4. Mild tricuspid regurgitation | | | with no pulmonary hypertension. 5. There is no pericardial effusion. | | + + + + + + | Narrative | Performed At | + + + | Patient Name: Mason Champion Date of : 1955 | | | Performing Physician: Donis Smith | | | | | | INDICATIONS Dyspnea CONCLUSIONS 1. The | | | left ventricle is normal in size,wall thickness and systolic function | | | EF 55-60%. 2. The right ventricle is moderately enlarged with mildly | | | impaired systolic function. 3. Mild mitral regurgitation and | | | severely dilated left atrium. 4. Mild tricuspid regurgitation with no | | | pulmonary hypertension. 5. There is no pericardial effusion. | | | FINDINGS -------- ECG rhythm: Atrial fibrillation. Study: A | | | 2-dimensional transthoracic echocardiogram with m-mode, spectral and | | | color flow Doppler was perfomed. Study: This was a technically | | | adequate study. Left Ventricle: Overall left ventricular systolic | | | function is normal with, an EF between 55 - 60 %. Left Ventricle: The | | | left ventricle cavity size is normal. Left Ventricle: Left | | | ventricular wall thickness is normal. Left Ventricle: No regional | | | wall motion abnormalities. Right Ventricle: The right ventricle is | | | moderately enlarged measuring between 3.8 - 4.1 cm. Right Ventricle: | | | The right ventricular systolic function is mildly impaired. Left | | | Atrium: The left atrium is markedly dilated. Right Atrium: The right | | | atrium is markedly enlarged. Aortic Valve: The aortic valve appears | | | to be trileaflet. Aortic Valve: There is mild aortic valve sclerosis | | | without stenosis. Aortic Valve: Trace amount of aortic regurgitation. | | | Mitral Valve: The mitral valve is normal. Mitral Valve: Mild mitral | | | regurgitation is present. Tricuspid Valve: The tricuspid valve | | | appears structurally normal. Tricuspid Valve: Mild tricuspid | | | regurgitation present. Tricuspid Valve: There is no evidence of | | | pulmonary hypertension. Tricuspid Valve: The right ventricular | | | systolic pressure (pulmonary artery systolic pressure), as measured by | | | Doppler, is 29.96mmHg. Pulmonic Valve: The pulmonic valve was not | | | well visualized. Pericardium: There is no pericardial effusion. | | | Pericardium: No pleural effusion seen. IVC/Hepatic Veins: The IVC is | | | normal size (1.5-2.5cm) and collapses >50% with sniff, consistent with | | | central venous pressures of 5-10mmHg. Aorta: The aortic root, | | | ascending aorta and aortic arch are normal in size. MEASUREMENTS | | | Ao asc: 3.44 cm Ao Diam: 3.85 cm Ao sinus: | | | 3.[address] junct: 3.17 cm IVC: 1.62 cm LA Diam: 3.75 cm | | | LA Major: 6.00 cm EDV(Teich): 121.78 ml IVSd: 0.86 cm | | | LVIDd: 5.06 cm LVPWd: 0.97 cm LVOT Area: 3.66 cm2 LVOT | | | Diam: 2.15 cm %FS: 27.76 % EF(Teich): 53.55 % ESV(Teich): | | | 56.55 ml LVIDs: 3.65 cm SV(Teich): 65.22 ml RA Major: | | | 5.44 cm RV Major: 6.58 cm RV Minor: 4.04 cm RVIDd: 2.70 cm | | | LVEF MOD A2C: 59.14 % SV MOD A2C: 53.29 ml LVEF MOD A4C: | | | 55.89 % SV MOD A4C: 42.67 ml EF Biplane: 62.42 % LVEDV MOD | | | BP: 90.15 ml LVESV MOD BP: 33.87 ml LVEDV MOD A2C: 90.11 ml | | | LVLd A2C: 7.11 cm LVEDV MOD A4C: 76.35 ml LVLd A4C: 7.40 | | | cm LVESV MOD A2C: 36.81 ml LVLs A2C: 6.11 cm LVESV MOD A4C: | | | 33.67 ml LVLs A4C: 6.15 cm LAESV(A-L): 134.11 ml LAESV | | | Index (A-L): 57.55 ml/m2 LAAs A2C: 34.87 cm2 LAESV A-L A2C: | | | 152.77 ml LALs A2C: 6.75 cm LAAs A4C: 30.61 cm2 LAESV A-L | | | A4C: 112.44 ml LALs A4C: 7.07 cm Radha: 33.56 cm2 RAEDV | | | A-L: 153.95 ml RAEDV MOD: 149.23 ml RALd: 6.21 cm RAAs: | | | 24.46 cm2 RAESV A-L: 88.12 ml RAESV MOD: 85.83 ml RALs: | | | 5.76 cm TAPSE: 1.98 cm AV maxP.61 mmHg AV meanP.17 | | | mmHg AV Vmax: 1.07 m/s AV Vmean: 0.66 m/s AV VTI: 15.51 | | | cm KELLY Vmax: 2.99 cm2 KELLY (VTI): 3.22 cm2 AVAI Vmax: 0.00 | | | cm2/m2 AVAI (VTI): 0.00 cm2/m2 LVOT maxP.09 mmHg LVOT | | | meanP.47 mmHg LVSI Dopp: 21.46 ml/m2 LVSV Dopp: 50.00 | | | ml LVOT Vmax: 0.87 m/s LVOT Vmean: 0.56 m/s LVOT VTI: | | | 13.65 cm MV A Gilbert: 0.03 m/s MV DecT: 101.43 ms MV E Gilbert: | | | 0.58 m/s MV E/A Ratio: 19 MV PHT: 29.41 ms MVA By PHT: | | | 7.47 cm2 Septal e': 0.10 m/s Septal E/e': 5.72 Lateral e': | | | 0.07 m/s Lateral E/e': 7.30 RAP: 5 mmHg RVSP: 29.95 mmHg | | | TR maxP.95 mmHg TR Vmax: 2.49 m/s Laborer Tin Can: | | | Authenticated by: Donis Smith Report Date/Time: 08-19-2017 21:7:55 | | | | | + + + + + | Procedure Note | + + | Perfecto, Rad Conversion - 12/08/2018 3:40 PM PDT Patient Name: Rich Champion of | | : 1955 Performing Physician: Donis | | Carlosama INDICATIONS------ | | -----Dyspnea CONCLUSIONS 1. The left ventricle is normal in size,wall | | thickness and systolic function EF 55-60%.2. The right ventricle is moderately enlarged | | with mildly impaired systolic function.3. Mild mitral regurgitation and severely dilated | | left atrium.4. Mild tricuspid regurgitation with no pulmonary hypertension.5. There is | | no pericardial effusion. FINDINGS--------ECG rhythm: Atrial fibrillation.Study: A | | 2-dimensional transthoracic echocardiogram with m-mode, spectral and color flow Doppler | | was perfomed.Study: This was a technically adequate study.Left Ventricle: Overall left | | ventricular systolic function is normal with, an EF between 55 - 60 %.Left Ventricle: | | The left ventricle cavity size is normal.Left Ventricle: Left ventricular wall thickness | | is normal.Left Ventricle: No regional wall motion abnormalities.Right Ventricle: The | | right ventricle is moderately enlarged measuring between 3.8 - 4.1 cm.Right Ventricle: | | The right ventricular systolic function is mildly impaired.Left Atrium: The left atrium | | is markedly dilated.Right Atrium: The right atrium is markedly enlarged.Aortic Valve: | | The aortic valve appears to be trileaflet.Aortic Valve: There is mild aortic valve | | sclerosis without stenosis.Aortic Valve: Trace amount of aortic regurgitation.Mitral | | Valve: The mitral valve is normal.Mitral Valve: Mild mitral regurgitation is | | present.Tricuspid Valve: The tricuspid valve appears structurally normal.Tricuspid | | Valve: Mild tricuspid regurgitation present.Tricuspid Valve: There is no evidence of | | pulmonary hypertension.Tricuspid Valve: The right ventricular systolic pressure | | (pulmonary artery systolic pressure), as measured by Doppler, is 29.96mmHg.Pulmonic | | Valve: The pulmonic valve was not well visualized.Pericardium: There is no pericardial | | effusion.Pericardium: No pleural effusion seen.IVC/Hepatic Veins: The IVC is normal size | | (1.5-2.5cm) and collapses >50% with sniff, consistent with central venous pressures of | | 5-10mmHg.Aorta: The aortic root, ascending aorta and aortic arch are normal in size. | | MEASUREMENTS Ao asc: 3.44 cmAo Diam: 3.85 cmAo sinus: 3.[address] | | junct: 3.17 cmIVC: 1.62 cmLA Diam: 3.75 cmLA Major: 6.00 cmEDV(Teich): 121.78 | | mlIVSd: 0.86 cmLVIDd: 5.06 cmLVPWd: 0.97 cmLVOT Area: 3.66 [id number] Diam: 2.15 | | cm%FS: 27.76 %EF(Teich): 53.55 %ESV(Teich): 56.55 mlLVIDs: 3.65 cmSV(Teich): | | 65.22 mlRA Major: 5.44 cmRV Major: 6.58 cmRV Minor: 4.04 cmRVIDd: 2.70 cmLVEF | | MOD A2C: 59.14 %SV MOD A2C: 53.29 mlLVEF MOD A4C: 55.89 %SV MOD A4C: 42.67 mlEF | | Biplane: 62.42 %LVEDV MOD BP: 90.15 mlLVESV MOD BP: 33.87 mlLVEDV MOD A2C: 90.11 | | mlLVLd A2C: 7.11 cmLVEDV MOD A4C: 76.35 mlLVLd A4C: 7.40 cmLVESV MOD A2C: 36.81 | | mlLVLs A2C: 6.11 cmLVESV MOD A4C: 33.67 mlLVLs A4C: 6.15 cmLAESV(A-L): 134.11 | | mlLAESV Index (A-L): 57.55 ml/m2LAAs A2C: 34.87 [id number] A-L A2C: 152.77 mlLALs | | A2C: 6.75 cmLAAs A4C: 30.61 [id number] A-L A4C: 112.44 mlLALs A4C: 7.07 cmRAAd: | | 33.56 [id number] A-L: 153.95 mlRAEDV MOD: 149.23 mlRALd: 6.21 cmRAAs: 24.46 | | [id number] A-L: 88.12 mlRAESV MOD: 85.83 mlRALs: 5.76 cmTAPSE: 1.98 cmAV maxPG: | | 4.61 mmHgAV meanP.17 mmHgAV Vmax: 1.07 m/Mansi Vmean: 0.66 m/Mansi VTI: 15.51 | | cmAVA Vmax: 2.99 cm2AVA (VTI): 3.22 [id number] Vmax: 0.00 cm2/m2AVAI (VTI): 0.00 | | cm2/m2LVOT maxP.09 mmHgLVOT meanP.47 mmHgLVSI Dopp: 21.46 ml/m2LVSV Dopp: | | 50.00 mlLVOT Vmax: 0.87 m/sLVOT Vmean: 0.56 m/sLVOT VTI: 13.65 cmMV A Gilbert: | | 0.03 m/sMV DecT: 101.43 msMV E Gilbert: 0.58 m/sMV E/A Ratio: 19MV PHT: 29.41 msMVA | | By PHT: 7.47 [id number] e': 0.10 m/sSeptal E/e': 5.72Lateral e': 0.07 m/sLateral | | E/e': 7.30RAP: 5 mmHgRVSP: 29.95 mmHgTR maxP.95 mmHgTR Vmax: 2.49 m/s | | Laborer Tin Can:Authenticated by: Donis Ramos Date/Time: 08-19-2017 21:7:55 | | IMPRESSION: 1. The left ventricle is normal in size,wall thickness and systolic function | | EF 55-60%.2. The right ventricle is moderately enlarged with mildly impaired systolic | | function.3. Mild mitral regurgitation and severely dilated left atrium.4. Mild tricuspid | | regurgitation with no pulmonary hypertension.5. There is no pericardial effusion. | |Ao sinus: 3.79 cm | |Ao st junct: 3.17 cm | |IVC: 1.62 cm | |LA Diam: 3.75 cm | |LA Major: 6.00 cm | |EDV(Teich): 121.78 ml | |IVSd: 0.86 cm | |LVIDd: 5.06 cm | |LVPWd: 0.97 cm | |LVOT Area: 3.66 cm2 | |LVOT Diam: 2.15 cm | |%FS: 27.76 % | |EF(Teich): 53.55 % | |ESV(Teich): 56.55 ml | |LVIDs: 3.65 cm | |SV(Teich): 65.22 ml | |RA Major: 5.44 cm | |RV Major: 6.58 cm | |RV Minor: 4.04 cm | |RVIDd: 2.70 cm | |LVEF MOD A2C: 59.14 % | |SV MOD A2C: 53.29 ml | |LVEF MOD A4C: 55.89 % | |SV MOD A4C: 42.67 ml | |EF Biplane: 62.42 % | |LVEDV MOD BP: 90.15 ml | |LVESV MOD BP: 33.87 ml | |LVEDV MOD A2C: 90.11 ml | |LVLd A2C: 7.11 cm | |LVEDV MOD A4C: 76.35 ml | |LVLd A4C: 7.40 cm | |LVESV MOD A2C: 36.81 ml | |LVLs A2C: 6.11 cm | |LVESV MOD A4C: 33.67 ml | |LVLs A4C: 6.15 cm | |LAESV(A-L): 134.11 ml | |LAESV Index (A-L): 57.55 ml/m2 | |LAAs A2C: 34.87 cm2 | |LAESV A-L A2C: 152.77 ml | |LALs A2C: 6.75 cm | |LAAs A4C: 30.61 cm2 | |LAESV A-L A4C: 112.44 ml | |LALs A4C: 7.07 cm | |Radha: 33.56 cm2 | |RAEDV A-L: 153.95 ml | |RAEDV MOD: 149.23 ml | |RALd: 6.21 cm | |RAAs: 24.46 cm2 | |RAESV A-L: 88.12 ml | |RAESV MOD: 85.83 ml | |RALs: 5.76 cm | |TAPSE: 1.98 cm | |AV maxP.61 mmHg | |AV meanP.17 mmHg | |AV Vmax: 1.07 m/s | |AV Vmean: 0.66 m/s | |AV VTI: 15.51 cm | |KELLY Vmax: 2.99 cm2 | |KELLY (VTI): 3.22 cm2 | |AVAI Vmax: 0.00 cm2/m2 | |AVAI (VTI): 0.00 cm2/m2 | |LVOT maxP.09 mmHg | |LVOT meanP.47 mmHg | |LVSI Dopp: 21.46 ml/m2 | |LVSV Dopp: 50.00 ml | |LVOT Vmax: 0.87 m/s | |LVOT Vmean: 0.56 m/s | |LVOT VTI: 13.65 cm | |MV A Gilbert: 0.03 m/s | |MV DecT: 101.43 ms | |MV E Gilbert: 0.58 m/s | |MV E/A Ratio: 19 | |MV PHT: 29.41 ms | |MVA By PHT: 7.47 cm2 | |Septal e': 0.10 m/s | |Septal E/e': 5.72 | |Lateral e': 0.07 m/s | |Lateral E/e': 7.30 | |RAP: 5 mmHg | |RVSP: 29.95 mmHg | |TR maxP.95 mmHg | |TR Vmax: 2.49 m/s | | | |Laborer [employer] Can: | |Authenticated by: Donis Smith | |Report Date/Time: 08-19-2017 21:7:55 | | | |IMPRESSION: | |1. The left ventricle is normal in size,wall thickness and systolic function EF 55-60%. | |2. The right ventricle is moderately enlarged with mildly impaired systolic function. | |3. Mild mitral regurgitation and severely dilated left atrium. | |4. Mild tricuspid regurgitation with no pulmonary hypertension. | |5. There is no pericardial effusion. | + + documented in this encounter Visit Diagnoses Not on filedocumented in this encounter"
--- OUTSIDE RECORDS SUMMARY | ~2019-09-15 | XMS | Encounter Summary ---
Demographics + + + | Address | [address] | | | [place] [address] | + + + | Home Phone | | + + + | Preferred Language | Unknown | + + + | Marital Status | | + + + | Voodoo Affiliation | 1013 | + + + | Race | Unknown | + + + | Ethnic Group | Unknown | + + + Author + + + | Author | [facility] | | | and [place] | + + + | Organization | [facility] | | | and [...] Team Providers + +------+ + | Care Transit Department Clerk Name | Role | Phone | + +------+ + | Maria Vieira | PCP | | + +------+ + Reason for Visit + + + | Reason | Comments | + + + | Follow-up | reschedule | + + + Encounter Details +--------+ + + + + | Date | Type | Department | Care Team | Description | +--------+ + + + + | 12/21/ | Telephone | [facility] | Michele Motta MD | Follow-up | | 2019 | | GENERAL SURGERY [address] | [address] [place] | (reschedule) | | | | [address] | [address] [place], [place] | | | | | [place], [place] | [address] | | | | | [address] | | | | | | [phone] | | | +--------+ + + + [...] | | | | | [place] [address] | | | | | | [phone] | | | | | | | | +--------+---------+ + + + | 03/06/ | Office | Pulmonology | Tristian Foote MD | | | 2019 | Visit | | [address] | | | | | | [place] | | | | | | [id number] | | | | | | | | +--------+---------+ + + + documented as of this encounter Visit Diagnoses Not on filedocumented in this encounter"
--- OUTSIDE RECORDS SUMMARY | ~2019-09-15 | XMS | Encounter Summary ---
Demographics + + + | Address | [address] | | | [place] [address] | + + + | Home Phone | | + + + | Preferred Language | Unknown | + + + | Marital Status | | + + + | Episcopal Affiliation | 1013 | + + + | Race | Unknown | + + + | Ethnic Group | Unknown | + + + Author + + + | Author | [facility] | | | and [place] | + + + | Organization | [facility] | | | [...] Team Providers + +------+ + | Care Fringe Weaver Name | Role | Phone | + +------+ + | Maria Vieira | PCP | | + +------+ + Encounter Details +--------+ + + + + | Date | Type | Department | Care Team | Description | +--------+ + + + + | 08/30/ | Hospital | [facility] | Deangelo Jamil DO | Permanent atrial | | 2019 - | Encounter | [facility] | [address] | fibrillation (HCC) | | | | [address] | [place] [address] | (Primary Dx); | | 09/01/ | | [place], [place] | [phone] | Complete heart block | | 2020 | | [address] | | (HCC); Symptomatic | | | | [phone] | Dada Briones MD | bradycardia | | | | | [address] | | | | | | [place] [address] | | | | | | [phone] | | | | | | | [...] + + documented as of this encounter Last Filed Vital Signs + + + + + | Vital Sign | Reading | Time Taken | Comments | + + + + + | Blood Pressure | 170/95 | 09/02/2019 8:53 AM | RN notified. | | | | PDT | | + + + + + | Pulse | 65 | 09/02/2019 8:53 AM | | | | | PDT | | + + + + + | Temperature | 36.7 C (98.1 F) | 09/02/2019 8:53 AM | | | | | PDT | | + + + + + | Respiratory Rate | 22 | 09/02/2019 8:53 AM | | | | | PDT | | + + + + + | Oxygen Saturation | 100% | 09/02/2019 8:53 AM | | | | | PDT | | + + + + + | Inhaled Oxygen | - | - | | | Concentration | | | | + + + + + | Weight | 86.8 kg (191 lb 5.8 | 08/31/2019 10:02 PM | | | | oz) | PDT | | + + + + + | Height | 198.1 cm (6' 6") | 08/31/2019 10:00 PM | | | | | PDT | | + + + + + | Body Mass Index | 22.11 | 08/31/2019 10:00 PM | | | | | PDT | | + + + + + documented in this encounter Discharge Summaries Liban Burch MD - 09/02/2019 5:14 PM PDTFormatting of this note might be different fr om the original. [facility] Service: Medicine DISCHARGE SUMMARY Primary Care Physician: Maria Vieira Patient Name: Mason Champion : 1955 Date of Admission: 08/31/2019 Date of Discharge: 09/02/2019 Discharge Provider: Dada Briones MD Discharge Diagnoses: Principal Problem (Resolved): History of complete heart block, status post implantation of permanent pacemaker on 2019 Active Problems: Essential hypertension Permanent atrial fibrillation COPD (chronic obstructive pulmonary disease) Symptomatic bradycardia Discharged condition: good Procedures: Implantation of permanent pacemaker 09/01/19 Consultants: Treatment Team: Gavin Jean Baptiste MD [facility] and HOSPITAL COURSE: Mason Champion is a 63 y.o. male with past medical history significant for A. fib on warfarin and bisoprolol and COPD who presented with months long gradually worsening lighthe adedness and dizziness and found in complete heart block at a outside hospital in [facility] and was transferred for pacemaker placement. A single-chamber, MRI compatible, [employer] permanent pacemaker was successfully implanted by Electrophysiology with the fo yonyg provided data (taken from note of Dr Jean Baptiste): Equipment: [employer] MRI DR IS 1, model #L310, serial #[id number]. RV lead is [employer] MRI IS 1 bi-positive fix RV 59 cm, model #7842, ser ial #[id number]. Device measurements of RV is 10.9 mV, impedance 710, threshold 0.4 at 0.4 ms. Final parameters of VVIR, lower rate 60, upper rate 130) Following up limitation, patient had significant improvement in symptoms with routine heali ng and was ready for discharge. Upon discharge patient was eating, drinking, urinating, havi ng bowel movements without problems. Patient was discharged on the medications as listed bel ow. Patient was encouraged to make follow-up appointments with his PCP and electrophysiology . All questions were answered to the satisfaction of the patient and he was discharged in st able condition. Last updated on: 09/02/2019 Discharge Exam: Temp: [36.6 C (97.8 F)-36.7 C (98.1 F)] 36.7 C (98.1 F) Pulse: [60-65] 65 Resp: [22-24] 22 BP: (160-170)/(86-103) 170/95 Physical Exam Vitals signs and nursing note reviewed. Constitutional: General: He is not in acute distress. Appearance: Normal appearance. He is well-developed and normal weight. He is not ill-ricki earing. HENT: Head: Normocephalic and atraumatic. Nose: Nose normal. Mouth/Throat: Mouth: Mucous membranes are moist. Eyes: Extraocular Movements: Extraocular movements intact. Conjunctiva/sclera: Conjunctivae normal. Neck: Musculoskeletal: Normal range of motion and neck supple. Cardiovascular: Rate and Rhythm: Normal rate and regular rhythm. Pulses: Normal pulses. Heart sounds: Normal heart sounds. Comments: Patient had a paced rhythm of approximately 60 bpm Pulmonary: Effort: Pulmonary effort is normal. No respiratory distress. Breath sounds: Normal breath sounds. No stridor. Abdominal: General: Bowel sounds are normal. There is no distension. Palpations: Abdomen is soft. There is no mass. Tenderness: There is no abdominal tenderness. Musculoskeletal: Normal range of motion. Skin: General: Skin is warm and dry. Capillary Refill: Capillary refill takes less than 2 seconds. Findings: No rash. Comments: Pressure dressing was dry and clean. Bruising present on left lateral edge of pressor dressing. Neurological: General: No focal deficit present. Mental Status: He is alert and oriented to person, place, and time. Mental status is at baseline. Cranial Nerves: No cranial nerve deficit. Coordination: Coordination normal. Deep Tendon Reflexes: Reflexes normal. Psychiatric: Mood and Affect: Mood normal. Behavior: Behavior normal. Thought Content: Thought content normal. Judgment: Judgment normal. DATA: Labs Recent Results (from the past 24 hour(s)) Basic Metabolic Panel Result Value Ref Range Na 142 135 - 145 mmol/L K 3.9 3.5 - 4.9 mmol/L Cl 111 (H) 99 - 109 mmol/L CO2 25 23 - 32 mmol/L Anion Gap 10 5 - 20 mmol/L Glucose 87 65 - 99 mg/dL BUN 17 8 - 25 mg/dL Creatinine 1.1 0.70 - 1.30 mg/dL BUN/Creatinine Ratio 15 Calcium 8.6 8.5 - 10.5 mg/dL Estimated GFR >60 >60 mL/min/1.73m2 Microbiology Microbiology Results (Last 14 Days by Collected Date with Culture/Sensitivity) No results found for the last 336 hours. Imaging No results found. PATIENT INSTRUCTIONS Take medications as prescribed Activity: As tolerated Diet: cardiac diet Wound Care: keep wound clean and dry Dispo: Home or Self Care Discharge Medications New Medications Details aspirin 325 mg tablet Take 1 tablet by mouth Daily. traMADol 50 mg tablet Take 1 tablet by mouth every 6 hours as needed for Pain. aka: ULTRAM Unchanged Medications Details bisoprolol 10 MG tablet Take 10 mg by mouth Daily. aka: ZEBETA omeprazole 20 mg capsule Take 20 mg by mouth every morning (before breakfast). aka: priLOSEC SYMBICORT 160-4.5 mcg/puff inhaler Generic drug: budesonide-formoterol INHALE 2 PUFFS BY MOUTH TWICE DAILY VENTOLIN HFA 90 mcg/puff inhaler Generic drug: albuterol Inhale 2 puffs into the lungs every 6 hours as needed for Wheezing. Discontinued Medications warfarin 4 MG tablet aka: COUMADIN Follow Up: RICHA Samuel [address] [place] [address] In 1 week Gavin Jean Baptiste MD [address] [place] [id number] In 1 week The preceding was discussed with attending Dada Briones MD who agreed with the assessment and plan. Discharge took more than 35 minutes, to include physical examination, discussion of admissi on, preparation of prescriptions, instructions for ongoing care, follow up, and dictation of summary. Liban Burch MD 09/02/2019 Associated attestation - Dada Briones MD - 09/03/2019 11:07 AM PDTAttending: Pt is seen and examined with resident. Discussed with the resident and agree with the resid ent's findings and plan as documented in the resident's note.Laboratory tests and radiology images have been independently reviewed and confirmed. My thoughts have been incorporated in the above-mentioned note. He is feeling better. Dada Briones MD, MD documented in this encounter Discharge Instructions Instructions Dada Briones MD - 09/02/2019 Living with a Pacemaker When you have a pacemaker, you can do almost everything you did before your surgery. Here a re tips for living well with a pacemaker. Carry an ID card When you first get your pacemaker, you ll be given an ID card to carry. This card contain s important information about the device. Show it to any doctor, dentist, or other provider you visit. Pacemakers may set off metal detectors. So you may need to show your card to [facility] personnel, such as those in the airport security checkpoint. What to avoid Be careful when using a cell phone. Hold it to the ear farthest from your pacemaker, or use a headset. Don t carry the phone in your breast pocket, over the pacemaker, even when it s turned off. Avoid very strong magnets. These include those used for an MRI or in hand-held security wands. Some pacemaker devices are considered safer for having an MRI (MR-conditional devices ) but safety precautions must still be used. Show your ID card when you go through security. Avoid strong electrical gaines. Theseare made by radio transmitting towers and [employer]. They are also made by heavy-duty electrical equipment. A running engine makes an electr ical field. Don't lean over the open conde of a running car.Most household and yard applian fredy will not cause any problems. If you use any large power tools, such as an industrial field court researcher, talk to your doctor. Call your doctor if you have any symptoms. These include dizziness or palpitations. What s OK Below are some of the many things that are safe to use: Microwave ovens Computers Hair dryers Power tools Radios, televisions, and CD players Electric blankets and heating pads Vacuum air tube releaser Cars Follow up Plan to have periodic checkps with your healthcare provider to evaluate the battery life of your pacemaker. Depending on your device and how much your body uses the pacing functions o f the pacemaker, you will need a new pacemaker generator implanted at some point, usually ab out every 5 to 7 years. On average, this monitoring should happen every 6 months, or as advi sed by your healthcare provider. For some devices, the monitoring of the device function and battery-life can be done with a remote monitor that can be set up in your home. Remote monitoring systems use the internet or telephone to communicate the information from your device to your healthcare provider. Date Last Reviewed: 08/18/201519996917-2507 The [employer] [place] [address], [place] [address]. All righ ts reserved. This information is not intended as a substitute for professional medical care. Always follow your healthcare professional's instructions. Discharge Instructions for Pacemaker Implantation You have had a procedure to insert a pacemaker. Once inside your body, this small electroni c device helps keep your heart from beating too slowly. A pacemaker can't fix existing heart problems. But it can help you feel better and have more energy. As you recover, follow all of the instructions you are given, including those below. Activity Don't drive until your doctor says it's OK. Plan to have someone drive you home after th e procedure. Follow the instructions you are given about limiting your activity. If you are fitted with an arm sling, keep your arm in the sling for as long as your doct or tells you to. Most often, the sling will be removed the following day though you may be i nstructed to sleep with it on for a period to prevent damage to the pacemaker while it's hea ling. Don't raise your arm on the incision side above shoulder level or stretch your arm behin d your back for as long as directed by your doctor. This gives the leads a chance to secure themselves inside your heart. Ask your doctor when you can expect to return to work. Depending on the type of work you do, you may have restrictions until your manager wellness clears you for unrestricted activity. You can still exercise. It's good for your body and your heart. Talk with your doctor ab out an exercise plan and the types of exercise to minimize the risk of damaging your pacemak er. Other precautions Follow your doctor's directions carefully for wound care. If there is a dressing, ask wh ether you should remove it or keep it on until your next visit. Never put any creams, lotion s, or products like peroxide on an incision unless your doctor tells you to. Do not get the incision wet until your doctor says it's OK. Every day, take your temperature and check your incision for signs of infection (redness , swelling, drainage, or warmth). Do this for 7 days or as advised by your doctor. Learn to take your own pulse. Keep a record of your results. Ask your doctor what pulse rate means you should call for medical attention. Before you receive any treatment, tell all healthcare providers (including your dentist) that you have a pacemaker. You will be given an ID card that contains information about your pacemaker. Always hopper y this card with you. You can show this card if your pacemaker sets off a metal detector. Yo u should also show it to avoid screening with a hand-held security wand. Keep your cell phone away from your pacemaker. Don't carry the phone in your shirt pocke t overlying the pacemaker, even when it's turned off. Stay away from strong magnets. Examples are those used in MRIs or in hand-held security wands. Some pacemakers are now safe to use with MRI scanners. Ask your doctor if you have lester ch a pacemaker. Stay way from strong electrical gaines. Examples are those made by radio transmitting to wers, "[employer]" radios, and heavy-duty electrical equipment. Don't lean over the open conde of a running car. A running engine creates an electrical f ield. Most household and yard appliances will not cause any problems. If you use any large p ower tools, such as an industrial field court researcher, talk with your doctor. Follow-up care See your manager wellness in the next 7 to 10 days. Call and make an appointment as soon as you get home. Make regular follow-up appointments with your doctor. He or she will check the pacemaker to make sure it's working properly. Plan on having periodic checkups with your healthcare provider to evaluate the battery l gomez of your pacemaker. Depending on your device and how much your body uses the pacing funct ions of the pacemaker, you will need a new device generator implanted at some point, general ly about every 5 to 7 years. Some pacemakers have a built-in antenna that can transmit information such as trouble al erts over the internet to your doctor. Ask your doctor if your pacemaker is capable of remot e monitoring. [id number] Call 911 if you have: Chest pain Severe trouble breathing When to call your healthcare provider Call your healthcare provider right away if you have any of these: Dizziness Lack of energy Fainting spells Twitching chest muscles Rapid pulse or pounding heartbeat Shortness of breath Pain around your pacemaker Fever above 100.4 F (38 C) or higher, or as directed by your healthcare provider Other signs of infection such as redness, swelling, drainage, or warmth at the incision site Your incision is not healing or your incision separates or opens Hiccups that won't stop Redness, severe swelling, drainage, worsening pain, bleeding, or warmth at the incision site If your pacemaker generator feels loose or like it is wiggling in the pocket under the s kin Date Last Reviewed: 09/18/201519997209-6430 The [employer]. [address] [place] [address]. All righ ts reserved. This information is not intended as a substitute for professional medical care. Always follow your healthcare professional's instructions. documented in this encounter Medications at Time of [...] + + + +---------+ + + | aspirin 325 mg | Take 1 tablet by | 90 | 3 | 09/02/19 | | | tablet | mouth Daily. | tablet | | 20 | | + + + +---------+ + + | bisoprolol | Take 10 mg by mouth | | 0 | | | | (ZEBETA) 10 MG | Daily. | | | | [...] + + + +---------+ + + | SYMBICORT 160-4.5 | INHALE 2 PUFFS BY | 1 | 12 | 03/13/20 | | | MCG/ACT inhaler | MOUTH TWICE DAILY | Inhaler | | 19 | | + + + +---------+ + + | traMADol (ULTRAM) | Take 1 tablet by | 30 | 0 | 09/02/19 | | | 50 mg tablet | mouth every 6 hours | tablet | | 20 | 0 | | | as needed for Pain. | | | | | + + + +---------+ + + documented as of this encounter Progress Notes Sharri Angel RN - 09/02/2019 10:03 AM PDTDischarge education completed. All question s answered. Pt left in private vehicle with son. Liban Jasmine MD - 09/01/2019 7:07 AM PDTFormatting of th is note might be different from the original. PROGRESS NOTE for Mason Champion, male, 1955, , Room Number [facility]* On the hospitalist service. 09/01/19 PATIENT SUMMARY Mason Champion is a 63 y.o. male with past medical history significant for A. fib on warfarin and bisoprolol and COPD who presented with gradually worsening lightheadedness and dizziness and found in complete heart block at a outside hospital in [facility] and w as transferred for pacemaker placement. Now on day 1 of admissionly. ASSESSMENT AND PLAN Complete heart block (08/31/2019) Symptomatic bradycardia (08/31/2019) Assessment: Cardiology accepted the transfer from the OSH and planning for pacemaker place ment this afternoon. Plan: Cardiology on board, appreciate recommendations. Following pacemaker placement today, follow-up with cardiology recommendations. Hold beta-domingo prior to pacemaker placement N.p.o. until pacemaker placement. Essential hypertension (05/19/2018) Assessment: Blood pressure down trended and stable at normal limits since arrival. Plan: Hold beta-domingo prior to pacemaker placement. Permanent atrial fibrillation (09/29/2017) Assessment: On home doses of warfarin 6 mg MWF, 8 mg other days and bisoprolol 10 mg Plan: Continue to hold warfarin and her walker until surgery. Continue Lovenox 40 mg twice daily COPD (chronic obstructive pulmonary disease) (08/31/2019) Assessment: Stable no acute exacerbation. Saturating well on room air. Plan: Continue inhalers Electrolytes -continue to monitor with BMP in a.m. -Replace potassium, magnesium and phosphate with goals of 4, 2, and 3 respectively. Code Status: Full code DVT Prophylaxis: Enoxaparin GI Prophylaxis: Pantoprazole 40, held this morning as patient n.p.o. Bowel Regimen: PRN MiraLAX Diet: Current active diet order is: Diet Diet NPO; strict NPO; Effective Now Principal Problem: Complete heart block Active Problems: Essential hypertension Permanent atrial fibrillation COPD (chronic obstructive pulmonary disease) Symptomatic bradycardia Resolved Problems: * No resolved hospital problems. * Length of stay: 1 days Disposition: Inpatient SUBJECTIVE Events Overnight: Per nurse report, no acute events overnight. Heart rate self maintained between 29 and 60. Patient reports feeling well. Denies chest pain, shortness of breath, palpitations. Repor ts having walked to the bathroom and back with minimal shortness of breath. Reports very mi ld lightheadedness. Denies dizziness, weakness numbness or tingling. OBJECTIVE BP 167/72 | Pulse 63 | Temp 36.8 C (98.3 F) (Oral) | Resp 13 | Ht 1.981 m (6' 6") | Wt 86.8 kg (191 lb 5.8 oz) | SpO2 100% | BMI 22.11 kg/m Physical Exam: ? Patient laying calmly in the bed no acute distress ? Heart with a regular rhythm and bradycardic rate. Heart rate in 40s per telemetry in tova m. ? Lungs clear to auscultation bilaterally ? No edema bilateral lower extremities INR 3.1 this morning. Potassium 3.8 with magnesium 1.8. Liban Burch MD 09/01/19 1:32 PM Associated attestation - Dada Briones MD - 09/01/2019 7:54 PM PDTAttending: Pt is seen and examined with resident. Discussed with the resident and agree with the resid ent's findings and plan as documented in the resident's note.Laboratory tests and radiology images have been independently reviewed and confirmed. My thoughts have been incorporated in the above-mentioned note. Wound to have a permanent pacemaker placement. Possible dischar ge plan tomorrow. Dada Briones MD, John Hartman RN - 09/01/2019 6:03 AM PDTNo acute events, HR 29-60. All other VSS documented in th is encounter Plan of Treatment +--------+---------+ + + + | Date | Type | Specialty | Care Team | Description | +--------+---------+ + + + | 01/17/ | Office | Cardiology | Sarai Arce | | 2019 | Visit | | [facility] | | | | | | [address] | | | | | | [place] [address] | | | | | | [phone] | | | | | | | | +--------+---------+ + + + | 03/06/ | Office | Pulmonology | Tristian Foote MD | | 2019 | Visit | | [address] | | | | | | [place] | | | | | | [address] | | | | | | | | +--------+---------+ + + + documented as of this encounter Procedures + +--------+ + + + | Procedure Name | Priori | Date/Time | Associated Diagnosis | Comments | | | ty | | | | + +--------+ + + + | XR CHEST PA AND | Routin | 09/02/2019 | | Results for this | | LATERAL | e | 7:37 AM | | procedure are in the | | | | PDT | | results section. | + +--------+ + + + | BASIC METABOLIC | Routin | 09/02/2019 | | Results for this | | PANEL | e | 5:53 AM | | procedure are in the | | | | PDT | | results section. | + +--------+ + + + | CV EP PROCEDURE | Routin | 09/01/2019 | Permanent atrial | Results for this | | | e | 2:08 PM | fibrillation (HCC) | procedure are in the | | | | PDT | Complete heart block | results section. | | | | | (HCC) Symptomatic | | | | | | bradycardia | | + +--------+ + + + | PROTIME INR | STAT | 09/01/2019 | | Results for this | | | | 10:33 AM | | procedure are in the | | | | PDT | | results section. | + +--------+ + + + | PROTIME INR | STAT | 09/01/2019 | | Results for this | | | | 4:07 AM | | procedure are in the | | | | PDT | | results section. | + +--------+ + + + | CBC WITH | STAT | 09/01/2019 | | Results for this | | DIFFERENTIAL | | 4:07 AM | | procedure are in the | | | | PDT | | results section. | + +--------+ + + + | MAGNESIUM | STAT | 09/01/2019 | | Results for this | | | | 4:07 AM | | procedure are in the | | | | PDT | | results section. | + +--------+ + + + | BASIC METABOLIC | STAT | 09/01/2019 | | Results for this | | PANEL | | 4:07 AM | | procedure are in the | | | | PDT | | results section. | + +--------+ + + + documented in this encounter Results XR Chest PA and Lateral (09/02/2019 7:37 AM PDT) + + | Specimen | + + | | + + + + + | Impressions | Performed At | + + + | Unipolar right ventricular pacemaker electrode in the right | [facility] | | ventricle as above. No pneumothorax. Bait Digger to wood scaler the | | | depth of the position of the ventricular pacemaker electrode. | | | Signed by: Pankaj uMnoz Michael Sign Date/Time: 09/02/2019 8:15 | | | AM | | + + + + + + | Narrative | Performed At | + + + | CHEST PA AND LATERAL CLINICAL INFORMATION: Post cardiac | [facility] | | device procedure. COMPARISON: CHEST AP OR MU (08/31/2019); CT | | | ANGIOGRAPHY CHEST (07/24/2019); FINDINGS: Stable normal | | | cardiomediastinal silhouette and pulmonary vasculature. No | | | pneumothorax related to the right ventricular pacemaker electrode | | | which is within the right atrium but not as deep as often noted. | | | Very slight interval blunting of the right CP angle | | + + + + + | Procedure Note | + + | Perfecto, Rad Results In - 09/02/2019 8:19 AM PDT | | CHEST PA AND LATERAL | | | | CLINICAL INFORMATION: | | Post cardiac device procedure. | | | | COMPARISON: | | CHEST AP OR [facility] (08/31/2019); CT ANGIOGRAPHY CHEST (07/24/2019); | | | | FINDINGS: | | Stable normal cardiomediastinal silhouette and pulmonary vasculature. | | No pneumothorax related to the right ventricular pacemaker electrode | | which is within the right atrium but not as deep as often noted. Very | | slight interval blunting of the right CP angle | | | | IMPRESSION: | | Unipolar right ventricular pacemaker electrode in the right ventricle | | as above. No pneumothorax. Bait Digger to wood scaler the depth of the | | position of the ventricular pacemaker electrode. | | | | | | | | Signed by: Pankaj Munoz Michael | | Sign Date/Time: 09/02/2019 8:15 AM | + + + +---------+ + + | Performing | Address | City/State/Zipcode | Phone Number | | Organization | | | | + +---------+ + + | [facility] | | | | + +---------+ + + Basic Metabolic Panel (09/02/2019 5:53 AM PDT) + + + + + + | Component | Value | Ref Range | Performed | Pathologist | | | | | At | Signature | + + + + + + | Na | 142 | 135 - 145 | [facility] | | | | | mmol/L | LABORATORY | | + + + + + + | K | 3.9 | 3.5 - 4.9 | [facility] | | | | | mmol/L | LABORATORY | | + + + + + + | Cl | 111 (H) | 99 - 109 mmol/L | [facility] | | | | | | LABORATORY | | + + + + + + | CO2 | 25 | 23 - 32 mmol/L | [facility] | | | | | | LABORATORY | | + + + + + + | Anion Gap | 10 | 5 - 20 mmol/L | [facility] | | | | | | LABORATORY | | + + + + + + | Glucose | 87 | 65 - 99 mg/dL | [facility] | | | | | | LABORATORY | | + + + + + + | BUN | 17 | 8 - 25 mg/dL | [facility] | | | | | | LABORATORY | | + + + + + + | Creatinine | 1.1 | 0.70 - 1.30 | [facility] | | | | | mg/dL | LABORATORY | | + + + + + + | BUN/Creatin | 15 | | [facility] | | | ine Ratio | | | LABORATORY | | + + + + + + | Calcium | 8.6 | 8.5 - 10.5 | [facility] | | | | | mg/dL | LABORATORY | | + + + + + + | Estimated | >60Comment: GFR <60: | >60 | [facility] | | | GFR | CHRONIC KIDNEY DISEASE, | mL/min/1.73m2 | LABORATORY | | | | IF FOUND OVER [...] | | | | | | MDRD [facility] traceable | | | | | | equation.Testing | | | | | | performed at [facility], [address] | | | | | | [facility], | | | | | | [place] [address] | | | | + + + + + + + + | Specimen | + + | Blood | + + + + + + + | Performing | Address | City/State/[facility] | Phone Number | | Organization | | | | + + + + + | [facility] | [address] | [place] [address] | [phone] | + + + + + CV EP PROCEDURE (09/01/2019 2:08 PM PDT) + + | Specimen | + + | | + + + + + | Narrative | Performed At | + + + | | | | ConclusionSuccessful implantation of single-chamber, MRI compatible, | | | [employer] permanent pacemaker EquipmentGenerator is [employer] | | | Scientific Accolade MRI DR IS | | | | | | 1, model #[id number], serial #[id number] lead is [employer] INGEVITY | | | MRI IS | | | | | | 1 bi-positive fix RV 59 cm, model #[id number], serial #[id number]. Device | | | measurementsRV is 10.9 mV, impedance 710, threshold 0.4 at 0.4 ms. | | | Final parametersVVIR, lower rate 60, upper rate 130. | | |RV is 10.9 mV, impedance 710, threshold 0.4 at 0.4 ms. | | | | | |Final parameters | | |VVIR, lower rate 60, upper rate 130. | | | | | + + + Protime INR (09/01/2019 10:33 AM PDT) + + + + + + | Component | Value | Ref Range | Performed | Pathologist | | | | | At | Signature | + + + + + + | INR | 2.5Comment: REFERENCE | | [facility] | | | | RANGE:0.9 - 1.2 | | LABORATORY | | | | NON-ANTICOAGULATED2.0 | | [...] | | | | | performed at [facility];[address] | | | | | [address];[place] | | | | | | [address] | | | | + + + + + + + + | Specimen | + + | Blood | + + + + + + + | Performing | Address | City/State/Zipcode | Phone Number | | Organization | | | | + + + + + | [facility] | [address] | [place] [address] | [phone] | + + + + + Protime INR (09/01/2019 4:07 AM PDT) + + + + + + | Component | Value | Ref Range | Performed | Pathologist | | | | | At | Signature | + + + + + + | INR | 3.1Comment: REFERENCE | | [facility] | | | | RANGE:0.9 - 1.2 | | LABORATORY | | | | NON-ANTICOAGULATED2.0 | | [...] | | | | | performed at [facility] | | | | | | [facility];[place], [place] | | | | | | [address] | | | | + + + + + + + + | Specimen | + + | Blood | + + + + + + + | Performing | Address | City/State/Zipcode | Phone Number | | Organization | | | | + + + + + | [facility] | [address] | [place] [address] | [phone] | + + + + + Magnesium (09/01/2019 4:07 AM PDT) + + + + + + | Component | Value | Ref Range | Performed | Pathologist | | | | | At | Signature | + + + + + + | Magnesium | 1.8Comment: Testing | 1.7 - 2.4 mg/dL | [facility] | | | | performed at [facility];[address] | | LABORATORY | | | | [address];[place] | | | | | | [address] | | | | + + + + + + + + | Specimen | + + | Blood | + + + + + + + | Performing | Address | City/State/Zipcode | Phone Number | | Organization | | | | + + + + + | [facility] | [address] | [place] [address] | [phone] | + + + + + CBC with Differential (09/01/2019 4:07 AM PDT) + + + + + + | Component | Value | Ref Range | Performed | Pathologist | | | | | At | Signature | + + + + + + | WBC | 6.18 | 3.80 - 11.00 | [facility] | | | | | K/uL | LABORATORY | | + + + + + + | RBC | 3.88 (L) | 4.20 - 5.70 | [facility] | | | | | M/uL | LABORATORY | | + + + + + + | Hemoglobin | 12.6 (L) | 13.2 - 17.0 | [facility] | | | | | g/dL | LABORATORY | | + + + + + + | Hematocrit | 37.5 (L) | 39.0 - 50.0 % | [facility] | | | | | | LABORATORY | | + + + + + + | MCV | 96.6 | 80.0 - 100.0 fl | [facility] | | | | | | LABORATORY | | + + + + + + | MCH | 32.5 | 27.0 - 34.0 pg | [facility] | | | | | | LABORATORY | | + + + + + + | MCHC | 33.6 | 32.0 - 35.5 | [facility] | | | | | g/dL | LABORATORY | | + + + + + + | RDW-SD | 46.5 | 37 - 53 fl | [facility] | | | | | | LABORATORY | | + + + + + + | Platelet | 170 | 150 - 400 K/uL | [facility] | | | Count | | | LABORATORY | | + + + + + + | MPV | 12.1Comment: NO NORMAL | fl | [facility] | | | | RANGE ESTABLISHED | | LABORATORY | | + + + + + + | Diff Type | AUTOMATED | | [facility] | | | | | | LABORATORY | | + + + + + + | % nRBC | 0.0 | 0 /100WBC | [facility] | | | | | | LABORATORY | | + + + + + + | % | 55.00 | % | [facility] | | | Neutrophils | | | LABORATORY | | + + + + + + | IMMATURE | 0.20 | % | [facility] | | | GRANULOCYTE | | | LABORATORY | | + + + + + + | % | 29.10 | % | [facility] | | | Lymphocytes | | | LABORATORY | | + + + + + + | Monocyte % | 12.10 | % | [facility] | | | | | | LABORATORY | | + + + + + + | Eosinophils | 2.80 | % | [facility] | | | % | | | LABORATORY | | + + + + + + | Basophils % | 0.80 | % | [facility] | | | | | | LABORATORY | | + + + + + + | Neutrophils | 3.40 | 1.90 - 7.40 | [facility] | | | , Absolute | | K/uL | LABORATORY | | + + + + + + | IMMATURE | 0.01Comment: NOTE NEW | 0.00 - 0.07 | [facility] | | | GRANS AB | REFERENCE RANGE | K/uL | LABORATORY | | + + + + + + | Absolute | 1.80 | 1.00 - 3.90 | [facility] | | | Lymphocytes | | K/uL | LABORATORY | | + + + + + + | Absolute | 0.75 | 0.00 - 0.80 | [facility] | | | Monocytes | | K/uL | LABORATORY | | + + + + + + | Eosinophils | 0.17 | 0.00 - 0.50 | [facility] | | | , Absolute | | K/uL | LABORATORY | | + + + + + + | Basophils, | 0.05Comment: Testing | 0.00 - 0.10 | [facility] | | | Absolute | performed at [facility];[address] | K/u[address] | LABORATORY | | | | [address];[place], [place] | | | | | | [address] | | | | + + + + + + + + | Specimen | + + | Blood | + + + + + + + | Performing | Address | City/State/Zipcode | Phone Number | | Organization | | | | + + + + + | [facility] | [address] | [place] [address] | [phone] | + + + + + Basic Metabolic Panel (09/01/2019 4:07 AM PDT) + + + + + + | Component | Value | Ref Range | Performed | Pathologist | | | | | At | Signature | + + + + + + | Na | 144 | 135 - 145 | [facility] | | | | | mmol/L | LABORATORY | | + + + + + + | K | 3.8 | 3.5 - 4.9 | [facility] | | | | | mmol/L | LABORATORY | | + + + + + + | Cl | 110 (H) | 99 - 109 mmol/L | [facility] | | | | | | LABORATORY | | + + + + + + | CO2 | 26 | 23 - 32 mmol/L | [facility] | | | | | | LABORATORY | | + + + + + + | Anion Gap | 12 | 5 - 20 mmol/L | [facility] | | | | | | LABORATORY | | + + + + + + | Glucose | 97 | 65 - 99 mg/dL | [facility] | | | | | | LABORATORY | | + + + + + + | BUN | 21 | 8 - 25 mg/dL | [facility] | | | | | | LABORATORY | | + + + + + + | Creatinine | 1.21 | 0.70 - 1.30 | [facility] | | | | | mg/dL | LABORATORY | | + + + + + + | BUN/Creatin | 17 | | [facility] | | | ine Ratio | | | LABORATORY | | + + + + + + | Calcium | 8.9 | 8.5 - 10.5 | [facility] | | | | | mg/dL | LABORATORY | | + + + + + + | Estimated | >60Comment: GFR <60: | >60 | [facility] | | | GFR | CHRONIC KIDNEY DISEASE, | mL/min/1.73m2 | LABORATORY | | | | IF FOUND OVER [...] | | | | | | MDRD [facility] traceable | | | | | | equation.Testing | | | | | | performed at [facility] | | | | | | [facility];[place], [place] | | | | | | [address] | | | | + + + + + + + + | Specimen | + + | Blood | + + + + + + + | Performing | Address | City/State/Zipcode | Phone Number | | Organization | | | | + + + + + | [facility] | [address] | [place] [address] | [phone] | + + + + + documented in this encounter Visit Diagnoses + + | Diagnosis | + + | History of complete heart block - Primary Personal history of other diseases of | | circulatory system | + + | Permanent atrial fibrillation (HCC) Atrial fibrillation | + + | Complete heart block (HCC) Atrioventricular block, complete | + + | Symptomatic bradycardia Other specified cardiac dysrhythmias | + + | Essential hypertension Unspecified essential hypertension | + + | COPD (chronic obstructive pulmonary disease) (HCC) Chronic airway obstruction, not | | elsewhere classified | + + documented in this encounter Administered Medications + +--------+ +--------+------+------+ | Medication Order | MAR | Action | Dose | Rate | Site | | | Action | Date | | | | + +--------+ +--------+------+------+ | acetaminophen (TYLENOL) tablet | Given | 09/02/19 | 650 mg | | | | 650 mg 650 mg, Oral, EVERY 4 | | 20 3:40 | | | | | HOURS PRN, Pain, or fever >= 38.6 | | AM PDT | | | | | C (101.5 F), Starting Vanita | | | | | | | 08/31/19 at 2216 | | | | | | + +--------+ +--------+------+------+ +-------+ +--------+---+---+ | Given | 09/01/19 | 650 mg | | | | | 20 7:55 | | | | | | PM PDT | | | | +-------+ +--------+---+---+ | Given | 09/01/19 | 650 mg | | | | | 20 3:21 | | | | | | PM PDT | | | | +-------+ +--------+---+---+ +---+---+ | | | +---+---+ + +-------+ +---------+---+---+ | budesonide-formoterol | Given | 09/02/19 | 2 puffs | | | | (SYMBICORT) 160-4.5 mcg/puff | | 20 8:11 | | | | | inhaler 2 puff 2 puff, | | AM PDT | | | | | Inhalation, 2 TIMES DAILY, First | | | | | | | dose on Vanita 08/31/19 at 2300, | | | | | | | Shake well. Use with spacer. | | | | | | | Rinse mouth after use., | | | | | | + +-------+ +---------+---+---+ +-------+ +---------+---+---+ | Given | 09/01/19 | 2 puffs | | | | | 20 7:56 | | | | | | PM PDT | | | | +-------+ +---------+---+---+ | Given | 09/01/19 | 2 puffs | | | | | 20 8:37 | | | | | | AM PDT | | | | +-------+ +---------+---+---+ +---+---+ | | | +---+---+ + +---------+ +-----+-------+---+ | ceFAZolin in dextrose (ANCEF) | New Bag | 09/01/19 | 2 g | 200 | | | IVPB 2 g 2 g, Intravenous, | | 20 12:55 | | mL/hr | | | Administer over 30 Minutes, ONCE, | | PM PDT | | | | | 09/01/19 at 1330, For 1 dose, | | | | | | | Keep in refrigerator., Intra-op, | | | | | | | Indications: Surgical | | | | | | | Prophylaxis | | | | | | + +---------+ +-----+-------+---+ +---+---+ | | | +---+---+ + +-------+ +-------+---+ + | enoxaparin (LOVENOX) 40 mg/0.4 | Given | 09/02/19 | 40 mg | | Abdomen- | | mL injection 40 mg 40 mg, | | 20 8:11 | | | LLQ | | Subcutaneous, EVERY 24 HOURS | | AM PDT | | | | | (Daily), First dose on Fri | | | | | | | 09/01/19 at 0900 | | | | | | + +-------+ +-------+---+ + +-------+ +-------+---+ + | Given | 09/01/19 | 40 mg | | Abdomen- | | | 20 8:38 | | | LLQ | | | AM PDT | | | | +-------+ +-------+---+ + + +---+ | | | + +---+ | hydrALAZINE (APRESOLINE) | | | injection 10 mg 10 mg, | | | Intravenous, EVERY 4 HOURS PRN, | | | SBP>180 not due to pain or | | | anxiety, Starting 09/01/19 at | | | 1613 | | + +---+ | | | + +---+ + +-------+ +------+---+---+ | melatonin tablet 3 mg 3 mg, | Given | 09/01/19 | 3 mg | | | | Oral, NIGHTLY PRN, Insomnia, | | 20 9:24 | | | | | Starting [facility] 08/31/19 at 2232 | | PM PDT | | | | + +-------+ +------+---+---+ +-------+ +------+---+---+ | Given | 08/31/19 | 3 mg | | | | | 20 11:26 | | | | | | PM PDT | | | | +-------+ +------+---+---+ +---+---+ | | | +---+---+ + +-------+ +-------+---+---+ | pantoprazole (PROTONIX) DR | Given | 09/02/19 | 40 mg | | | | tablet 40 mg 40 mg, Oral, DAILY | | 20 6:46 | | | | | BEFORE BREAKFAST, First dose on | | AM PDT | | | | | 09/01/19 at 0730, Indication: | | | | | | | GERD | | | | | | + +-------+ +-------+---+---+ +---+---+ | | | +---+---+ + +---------+ +---+ +---+ | sodium chloride 0.9% (NS) | New Bag | 09/01/19 | | 75 mL/hr | | | infusion at 75 mL/hr, | | 20 12:09 | | | | | Intravenous, CONTINUOUS, Starting | | PM PDT | | | | | Vanita 08/31/19 at 2245 | | | | | | + +---------+ +---+ +---+ +---------+ +---+ +---+ | New Bag | 08/31/19 | | 75 mL/hr | | | | 20 10:39 | | | | | | PM PDT | | | | +---------+ +---+ +---+ +---+---+ | | | +---+---+ + +-------+ +-------+---+---+ | traMADol (ULTRAM) tablet 50 mg | Given | 09/01/19 | 50 mg | | | | 50 mg, Oral, EVERY 6 HOURS PRN, | | 20 11:31 | | | | | Pain, Starting 09/01/19 at | | PM PDT | | | | | 2318 | | | | | | + +-------+ +-------+---+---+ +---+---+ | | | +---+---+ documented in this encounter
--- OUTSIDE RECORDS SUMMARY | ~2019-09-15 | XMS | Encounter Summary ---
Demographics + + + | Address | [address] | | | [place] [address] | + + + | Home Phone | | + + + | Preferred Language | Unknown | + + + | Marital Status | | + + + | Rastafarian Affiliation | 1013 | + + + | Race | Unknown | + + + | Ethnic Group | Unknown | + + + Author + + + | Author | [facility] | | | and [place] | + + + | Organization | [facility] | | | and [...] Team Providers + +------+ + | Care Catering Convention Services Manager Name | Role | Phone | + +------+ + | Maria Vieira | PCP | | + +------+ + Reason for Visit + + + | Reason | Comments | + + + | Appointment | Cancel 07/17 | + + + Encounter Details +--------+ + + + + | Date | Type | Department | Care Team | Description | +--------+ + + + + | 07/12/ | Telephone | [facility] | Cholo Sullivan | Appointment (Cancel | | 2019 | | GASTROENTEROLOGY | MD Chuy [address] | 07/17) | | | | [address] | [place] [address] | | | | | [place], [place] | [phone] | | | | | [address] | | | | | | [phone] | | | +--------+ + + + [...] [address] | | | | | | [place] [address] | | | | | | [phone] | | | | | | | | +--------+---------+ + + + | 03/06/ | Office | Pulmonology | Tristian Foote MD | | | 2019 | Visit | | [address] | | | | | | [place] | | | | | | [address] | | | | | | | | +--------+---------+ + + + documented as of this encounter Visit Diagnoses Not on filedocumented in this encounter"
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
--- OUTSIDE RECORDS SUMMARY | ~2019-09-15 | XMS | Encounter Summary ---
Demographics + + + | Address | [address] | | | [place] [address] | + + + | Home Phone | | + + + | Preferred Language | Unknown | + + + | Marital Status | | + + + | Oriental Orthodox Affiliation | 1013 | + + + | Race | Unknown | + + + | Ethnic Group | Unknown | + + + Author + + + | Author | [facility] | | | and [place] | + + + | Organization | [facility] | | | and [...] Team Providers + +------+ + | Care Tab Cutter Name | Role | Phone | + +------+ + | Landen Schaffer MD | PCP | | + +------+ + Reason for Visit + + + | Reason | Comments | + + + | Chest Pain Follow-up | | + + + Encounter Details +--------+ + + + + | Date | Type | Department | Care Team | Description | +--------+ + + + + | 12/16/ | Telephone | [facility] | Michele Motta MD | Chest Pain Follow-up | | 2019 | | GENERAL SURGERY [address] | [address] [place] | | | | | [address] | [address] [place], [place] | | | | | [place], [place] | [address] | | | | | [address] | | | | | | [phone] | | | +--------+ + + + [...] Cardiology | Sarai Arce | | | 2020 | Visit | | [address] | | | | | | [address] | | | | | | [place] [address] | | | | | | [phone] | | | | | | | | +--------+---------+ + + + | 11/18/ | Office | Pulmonology | Tristian Foote MD | | | 2019 | Visit | | [address] | | | | | | [place] | | | | | | [id number] | | | | | | | | +--------+---------+ + + + documented as of this encounter Visit Diagnoses Not on filedocumented in this encounter"
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
--- OUTSIDE RECORDS SUMMARY | ~2019-09-15 | XMS | Encounter Summary ---
Demographics + + + | Address | [address] | | | [place] [address] | + + + | Home Phone | | + + + | Preferred Language | Unknown | + + + | Marital Status | | + + + | Quaker Affiliation | 1013 | + + + | Race | Unknown | + + + | Ethnic Group | Unknown | + + + Author + + + | Author | [facility] | | | and [place] | + + + | Organization | [facility] | | | [...] Team Providers + +------+ + | Care Jackscrew Worker Name | Role | Phone | + +------+ + | Maria Vieira | PCP | | + +------+ + Reason for Visit + + + | Reason | Comments | + + + | Follow-up | Patient is being seen today to follow up on chest pain. Pt stated | | | he had has diarrhea since surgery and its getting worse. Also pt | | | reports epigastric pain, specially when pt is eating and about | | | 15-10 minutes after meal. pt started to have bloating, diarrhea | | | and sweats. No c/o nausea, vomiting, constipation, fever and | | | chills. | + + + Encounter Details +--------+---------+ + + + | Date | Type | Department | Care Team | Description | +--------+---------+ + + + | 12/23/ | Office | [facility] | Michele Motta MD | Bloating (Primary | | 2019 | Visit | GENERAL SURGERY [address] | [address] [place] | Dx); Postprandial | | | | [address] | [address] [place], [place] | epigastric pain | | | | [place], [place] | [address] | | | | | [address] | | | | | | [phone] | | | +--------+---------+ + + + [...] + + + documented in this encounter Progress Notes Michele Motta MD - 12/23/2018 10:30 AM PDT Subjective Patient ID: Mason Champion is a 63 y.o. male. Follow-up (Patient is being seen today to follow up on chest pain. Pt stated he had has troy rrhea since surgery and its getting worse. Also pt reports epigastric pain, specially when p t is eating and about 15-10 minutes after meal. pt started to have bloating, diarrhea and sw eats. No c/o nausea, vomiting, constipation, fever and chills. 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 Procedure was located by a postoperativ e bile leak simply from adhesions taken off of the liver. As result patient required placem ent of a common bile duct stent which has since been removed. There are a couple of things that concern the patient. He denies dysphasia symptoms howmarni campbell has postoperative bloating. He recently felt something give way in the epigastric region and is had more right epigastric abdominal pain in the last few weeks since that episode of pulling. Patient also has had persistent diarrhea that usually follows a meal. Both the bl oating and the diarrhea are relatively common after more complex but forgot surgery. I pippa marni this to be related to the impact of the surgery on the branches of the vagus nerve. The se are often self-limited but we have given this several months and patient continues to suf mary. His weight is stable. Objective BP 135/90 | Pulse 80 | Temp 36.7 C (98 F) (Oral) | Ht 1.829 m (6') | Wt 94.3 kg (20 8 lb) | SpO2 99% | BMI 28.21 kg/m Physical Exam All wounds are well approximated nonreactive and there is no sign of hernias. Abdomen is nontender. 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 Recent increase in postprandial epigastric discomfort. Plan Trial of Questran Will obtain upper GI fluoroscopic study today if possible to evaluate status of the wrap in the position of the stomach. Michele Motta MD 12/23/2018 documented in t his encounter Plan of Treatment +--------+---------+ + + + | Date | Type | Specialty | Care Team | Description | +--------+---------+ + + + | 01/17/ | Office | Cardiology | Sarai Arce | | | 2019 | Visit | | [address] | | | | | | [address] | | | | | | [place] [address] | | | | | | [phone] | | | | | | | | +--------+---------+ + + + | 03/06/ | Office | Pulmonology | Tristian Foote MD | | | 2019 | Visit | | [address] | | | | | | [place] | | | | | | [address] | | | | | | | | +--------+---------+ + + + documented as of this encounter Visit Diagnoses + + | Diagnosis | + + | Bloating - Primary Flatulence, eructation, and gas pain | + + | Postprandial epigastric pain Abdominal pain, epigastric | + + documented in this encounter"
--- OUTSIDE RECORDS SUMMARY | ~2019-09-15 | XMS | Encounter Summary ---
Demographics + + + | Address | [address] | | | [place] [address] | + + + | Home Phone | | + + + | Preferred Language | Unknown | + + + | Marital Status | | + + + | Restorationist Affiliation | 1013 | + + + | Race | Unknown | + + + | Ethnic Group | Unknown | + + + Author + + + | Author | [facility] | | | and [place] | + + + | Organization | [facility] | | [...] Team Providers + +------+ + | Care Well Flow Operator Name | Role | Phone | + +------+ + | Landen Schaffer MD | PCP | | + +------+ + Encounter Details +--------+ + + + + | Date | Type | Department | Care Team | Description | +--------+ + + + + | 02/22/ | Hospital | [facility] | Conversion | Pain | | 2018 | Encounter | CONVERSION [address] | Transaction, | | | | | [address] | Provider Unknown | | | | | [place] | [phone] | | | | | [address] | | | | | | [phone] | | | +--------+ + + + [...] | | | | | [place] [address] | | | | | | [phone] | | | | | | | | +--------+---------+ + + + | 03/06/ | Office | Pulmonology | Tristian Foote MD | | | 2019 | Visit | | [address] | | | | | | [place] | | | | | | [address] | | | | | | | [...] Note | + + | Johan [place] - 11/30/2018 6:52 AM PDT This is a non-reportable procedure | | without a radiologist report and isused for image storage only | + + documented in this encounter Visit Diagnoses + + | Diagnosis | + + | Pain Generalized pain | + + documented in this encounter"
--- OUTSIDE RECORDS SUMMARY | ~2019-09-15 | XMS | Encounter Summary ---
Demographics + + + | Address | [address] | | | [place] [address] | + + + | Home Phone | | + + + | Preferred Language | Unknown | + + + | Marital Status | | + + + | Anglican Affiliation | 1013 | + + + | Race | Unknown | + + + | Ethnic Group | Unknown | + + + Author + + + | Author | [facility] | | | and [place] | + + + | Organization | [facility] | | | [...] Team Providers + +------+ + | Care Fire Marshal Name | Role | Phone | + [...] [address] | | | | | [address] | [place] [address] | | | | | [phone] | [phone] | | | | | | | [...] [address] | | | | | | [facility] [place] [address] | | | | | | [phone] | | | | | | | | +--------+---------+ + + + | 03/06/ | Office | Pulmonology | Tristian Foote MD | | | 2019 | Visit | | [address] | | | | | | [place] | | | | | | [address] | | | | | | | | +--------+---------+ + + + documented as of this encounter Procedures + +--------+ + + + | Procedure Name | Priori | Date/Time | Associated Diagnosis | Comments | | | ty | | | | + +--------+ + + + | PROTIME INR | Routin | 04/27/2013 | | Results [...] | | | | | performed at [facility];[address] | | | | | | [facility] | | | | | | [address];[place] [address] | | | | | | | [...] EXTERNAL | | | | performed at [facility], [address] | | LAB | | | | [facility] | | | | | | [place] [address] | | | | + + + + + + | HCV | [id number] (A)Comment: | IU/mL | EXTERNAL | | [...] | | | | | | CHAVO AMPLIPREP/HCAVO | | | | | | TAQMAN [...] | | | | | performed at [facility], [address] | | | | | | [facility] | | | | | | [place] [address] | | | | + + + [...]
--- OUTSIDE RECORDS SUMMARY | ~2019-09-15 | XMS | Encounter Summary ---
Demographics + + + | Address | [address] | | | [place] [address] | + + + | Home Phone | | + + + | Preferred Language | Unknown | + + + | Marital Status | | + + + | Quaker Affiliation | 1013 | + + + | Race | Unknown | + + + | Ethnic Group | Unknown | + + + Author + + + | Author | [facility] | | | and [place] | + + + | Organization | [facility] | | [...] Team Providers + +------+ + | Care Weld Engineer Name | Role | Phone | + +------+ + | Maria Vieira | PCP | | + +------+ + Encounter Details +--------+--------+ + + + | Date | Type | Department | Care Team | Description | +--------+--------+ + + + | 08/30/ | Intake | [facility] | | N/A | | 2020 | | [address] | | | | | | [address] | | | | | | [place] | | | | | | [address] | | | | | | [phone] | | | +--------+--------+ + + + Social History + +-------+ [...] [address] | | | | | | [address] | | | | | | [place] [address] | | | | | | [phone] | | | | | | | | +--------+---------+ + + + | 03/06/ | Office | Pulmonology | Tristian Foote MD | | | 2019 | Visit | | [address] | | | | | | [place] | | | | | | [address] | | | | | | | | +--------+---------+ + + + documented as of this encounter Visit Diagnoses Not on filedocumented in this encounter"
--- OUTSIDE RECORDS SUMMARY | ~2019-09-15 | XMS | Encounter Summary ---
Demographics + + + | Address | [address] | | | [place] [address] | + + + | Home Phone | | + + + | Preferred Language | Unknown | + + + | Marital Status | | + + + | Pentecostalism Affiliation | 1013 | + + + | Race | Unknown | + + + | Ethnic Group | Unknown | + + + Author + + + | Author | [facility] | | | and [place] | + + + | Organization | [facility] | | [...] Team Providers + +------+ + | Care Urgent Care Physician Name | Role | Phone | + +------+ + | Landen Schaffer MD | PCP | | + +------+ + Encounter Details +--------+ + + + + | Date | Type | Department | Care Team | Description | +--------+ + + + + | 12/12/ | Abstract | [facility] [place] | Jai Toney, | | | 2016 | | PULMONARY [address] | | | | | [place], | [place] | | | | | [place] [address] | [address] | | | | | [phone] | | | +--------+ + + + [...] | | | | | [place] [address] | | | | | | [phone] | | | | | | | | +--------+---------+ + + + | 03/06/ | Office | Pulmonology | Tristian Foote MD | | | 2019 | Visit | | [address] | | | | | | [place] | | | | | | [address] | | | | | | | | +--------+---------+ + + + documented as of this encounter Visit Diagnoses Not on filedocumented in this encounter"
--- OUTSIDE RECORDS SUMMARY | ~2019-09-15 | XMS | Encounter Summary ---
Demographics + + + | Address | [address] | | | [place] [address] | + + + | Home Phone | | + + + | Preferred Language | Unknown | + + + | Marital Status | | + + + | Muslim Affiliation | 1013 | + + + | Race | Unknown | + + + | Ethnic Group | Unknown | + + + Author + + + | Author | [facility] | | | and [place] | + + + | Organization | [facility] | | | [...] Team Providers + +------+ + | Care Cigarette And Filter Chief Inspector Name | Role | Phone | [...] [address] [place] | | | | | [place], [place] | [address] | | | | | [address] | | | | | | [phone] | | | +--------+ + + + [...] | | | | | [place] [address] | | | | | | [phone] | | | | | | | | +--------+---------+ + + + | 03/06/ | Office | Pulmonology | Tristian Foote MD | | | 2019 | Visit | | [address] | | | | | | [place] | | | | | | [address] | | | | | | | [...] TR maxP.95 mmHg TR Vmax: 2.49 m/s Antique Dealer: | | | Authenticated by: Donis Smith [...] cmLVIDd: 5.06 cmLVPWd: 0.97 cmLVOT Area: 3.66 [id number] Diam: 2.15 | | cm%FS: 27.76 %EF(Teich): [...] mlLAESV Index (A-L): 57.55 ml/m2LAAs A2C: 34.87 [id number] A-L A2C: 152.77 mlLALs | | A2C: 6.75 cmLAAs A4C: 30.61 [id number] A-L A4C: 112.44 mlLALs A4C: 7.07 cmRAAd: | | 33.56 [id number] A-L: 153.95 mlRAEDV MOD: 149.23 mlRALd: 6.21 cmRAAs: 24.46 | | [id number] A-L: 88.12 mlRAESV MOD: 85.83 mlRALs: 5.76 cmTAPSE: 1.98 cmAV maxPG: | | 4.61 mmHgAV meanP.17 mmHgAV Vmax: 1.07 m/Mansi Vmean: 0.66 m/Mansi VTI: 15.51 | | cmAVA Vmax: 2.99 cm2AVA (VTI): 3.22 [id number] Vmax: 0.00 cm2/m2AVAI (VTI): 0.00 | | cm2/m2LVOT maxP.09 mmHgLVOT meanP.47 mmHgLVSI Dopp: 21.46 ml/m2LVSV Dopp: | | 50.00 mlLVOT Vmax: 0.87 m/sLVOT Vmean: 0.56 m/sLVOT VTI: 13.65 cmMV A Gilbert: | | 0.03 m/sMV DecT: 101.43 msMV E Gilbert: 0.58 m/sMV E/A Ratio: 19MV PHT: 29.41 msMVA | | By PHT: 7.47 [id number] e': 0.10 m/sSeptal E/e': 5.72Lateral e': 0.07 m/sLateral | | E/e': 7.30RAP: 5 mmHgRVSP: 29.95 mmHgTR maxP.95 mmHgTR Vmax: 2.49 m/s | | Antique Dealer:Authenticated by: Donis Ramos Date/Time: 08-19-2017 21:7:55 | [...] |TR Vmax: 2.49 m/s | | | |Antique Dealer: | |Authenticated by: Donis Smith | |Report [...]
--- OUTSIDE RECORDS SUMMARY | ~2019-09-15 | XMS | Encounter Summary ---
Demographics + + + | Address | [address] | | | [place] [address] | + + + | Home Phone | | + + + | Preferred Language | Unknown | + + + | Marital Status | | + + + | Mormon Affiliation | 1013 | + + + [...] Team Providers + +------+ + | Care Programmer Or Analyst Name | Role | Phone | + +------+ + | Landen Schaffer MD | PCP | | + +------+ + Encounter Details +--------+ + + + + | Date | Type | Department | Care Team | Description | +--------+ + + + + | 06/22/ | Hospital | [facility] | Licha Motta MD | | | 2019 | Encounter | [facility] | [address] | | | | | INTRA [address] | [address] [place], [place] | | | | | [address] [place], [place] | [address] | | | | | [address] | | | | | | [phone] | | | +--------+ + + + [...] documented as of this encounter Discharge Summaries Licha Motta MD - 06/22/2018 3:15 PM PST Discharge Summaries by Licha Motta MD at 06/22/18 [id number] Author: Licha Motta MD Service: General Surgery Author Type: Physician Filed: 06/22/18 9215 Date of Service: 06/22/18 8940 Status: Signed Absorption Operator: Licha Motta MD (Physician) [facility] Service: General Surgery Brief Post-op Discharge [...] on file. Follow up: Licha Motta MD [address] [place] [address] In 1 week for routine post operative visit. Maria Vieira PA-C [address] [place] [address] Medication List CONTINUE taking these [...] Primary Care Pro vider. LICHA MOTTA MD 06/22/2018 documented in this enc [...] | 01/17/ | Office | Cardiology | ClaudeSarai | | | 2019 | Visit | | [address] | | | | | | [address] | | | | | | [place] [address] | | | | | | [phone] | | | | | | | | +--------+---------+ + + + | 03/06/ | Office | Pulmonology | Tristian Foote MD | | | 2019 | Visit | | [address] | | | | | | [place] | | | | | | [address] | | | | | | | [...] | | | | | performed at [facility] | | | | | | [facility];[place], [place] | | | | | | [address] | | | | + + + [...]
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
--- OUTSIDE RECORDS SUMMARY | ~2019-09-15 | XMS | Encounter Summary ---
Demographics + + + | Address | [address] | | | [place] [address] | + + + | Home Phone [...] Team Providers + +------+ + | [place] Library Director Name | Role | Phone | + +------+ + | Maria Vieira | PCP | | + +------+ + Encounter Details +--------+ + + + + | Date | Type | Department | Care Team | Description | +--------+ + + + + | 12/23/ | Hospital | [facility] | Michele Motta MD | Bloating; | | 2019 | Encounter | CENTER OPIC XRAY | [address] [place] | Postprandial | | | | [address] | [address] [place], [place] | epigastric pain | | | | [address] [place], [place] | [address] | | | | | [address] | | | | | | [phone] | Yuri Pradoc Pro | | +--------+ + + + [...] lungs every 4 | | | | 0 | | | (four) hours as | [...] Daily. | tablet | | 19 | 0 | | packet | | | | [...] tablet | | | | 19 | 0 | + + + +---------+ + + [...] CR | | | | 19 | 0 | | capsule | | | | [...] | See Admin | | | | 0 | | tablet | Instructions. Take 6 [...] [address]OME[address] | | | | | | [place] [address] | | | | | | [phone] | | | | | | | | +--------+---------+ + + + | 03/06/ | Office | Pulmonology | Tristian Foote MD | | | 2019 | Visit | | [address] | | | | | | [place] | | | | | | [address] | | | | | | | [...] for this | | CONTRAST | | 3:20 PM | Postprandial | procedure are in the | | | | PDT | epigastric pain | results section. | + +--------+ + + + documented in this encounter Results FL UGI w Air Contrast (12/23/2018 3:20 PM PDT) + + | Specimen | [...] | | rapid sequence imaging. Fluoro Time: 1.8 minute(s)8 seconds. | | | Total number of images: 41. FINDINGS: Pharynx appears symmetric | | | and demonstrates no abnormal pooling of contrast. No evidence of | | | laryngeal penetration or aspiration seen. Esophagus appears to be | | | normal in contour without visualization of ulceration, diverticula, | | | mass or mucosal irregularity. Gastroesophageal junction and gastric | | | cardia appear unremarkable. There is moderate amount of ingested | | | material noted within the stomach. Therefore the gastric mucosa, as | | | well as presence of gastric mass were not well assessed. | | | Esophageal motility evaluation appears normal. No hiatal hernia | | | seen. There was gastroesophageal reflux seen during the | | | examination. A 13 mm barium tablet passes freely through the | | | esophagus into the stomach. IMPRESSION: Gastroesophageal reflux | | | seen. There is moderate amount of ingested material noted within the | | | stomach. Therefore the gastric mucosa, as well as presence of gastric | | | mass were not well assessed. Otherwise negative study. | | | Signed by: Pankaj Honeycutt Amit Sign Date/Time: 12/23/2018 3:41 PM | | + + + + + | Procedure Note | + + | Perfecto, Rad Results In - 12/23/2018 3:45 PM PDT | | UPPER GI WITH AIR [...] suspension 300 mL 300 | | 19 2:45 | | | | | mL, Oral, ONCE, 12/23/18 at | | PM PDT | | | | | 1445, For 1 dose, Oskar hunter., | | | | | | | Radiology | | | | | | + +--------+ +---------+------+------+ +---+---+ | | | +---+---+ documented in this encounter"
--- OUTSIDE RECORDS SUMMARY | ~2019-09-15 | XMS | Clinical Summary ---
Demographics + + + | Address | [address] | | | [place] [address] | + + + | Home Phone [...] + + | Author | [facility] | | | and [place] | + + + | Organization | [facility] | | | [...] Team Providers + +------+ + | Care Machine Sprayer Name | Role | Phone | + +------+ + | Maria Vieira | PCP | | + +------+ + Allergies + + + + + + | Active Allergy | Reactions | Severity | Noted | Comments | | | | | Date | | + + + + + + | Dicyclomine | Anaphylaxis | High | 09/13/19 | Developed | | | | | 20 | respiratory failure | | | | | | ? | + + + + + + [...] + + +---------+------+------+-------+ | bisoprolol | Take 10 mg by mouth | | 0 | | | Activ | | (ZEBETA) 10 MG | Daily. | | | | | e | | tablet | | | | | | | + + + +---------+------+------+-------+ | aspirin 325 mg | Take 1 tablet by | 90 | 3 | 05/1 | | Activ | | tablet | mouth Daily. | tablet | | 6/20 | | e | | | | | | 20 | | | + + + +---------+------+------+-------+ | warfarin | Take 4 mg by mouth | | 0 | | 05/1 | Disco | | (COUMADIN) 4 MG | Daily. | | | | 6/20 | ntinu | | tablet | | | | | 20 | ed | + + + +---------+------+------+-------+ | fluticasone | Inhale 1 puff into | | 0 | | 05/0 | Disco | | (FLOVENT HFA) 220 | the lungs 2 times | | | | 6/20 | ntinu | | mcg/puff inhaler | daily. | | | | 20 | ed | + + + +---------+------+------+-------+ | sildenafil | Take 50 mg by mouth | | 0 | | 05/1 | Disco | | (VIAGRA) 50 MG | as needed for | | | | 4/20 | ntinu | | tablet | Erectile | | | | 20 | ed | | | Dysfunction. | | | | | (Erro | | | | | | | | r) | + + + +---------+------+------+-------+ | acetaminophen | Take 2 tablets by | | 0 | 02/0 | 05/1 | Disco | | (TYLENOL) 500 mg | mouth every 8 | | | 5/20 | 4/20 | ntinu | | tablet | (eight) hours. | | | 19 | 20 | ed | | | | | | | | (Erro | | | | | | | | r) | + + + +---------+------+------+-------+ | albuterol 90 | Inhale 2 puffs into | | 0 | | 05/0 | Disco | | mcg/puff inhaler | the lungs every 4 | | | | 6/20 | ntinu | | | (four) hours [...] | ) | + + + +---------+------+------+-------+ | warfarin | Take 6-8 mg by mouth | | 0 | | 05/1 | Disco | | (COUMADIN) 4 MG | See Admin | | | | 6/20 | ntinu | | tablet | Instructions. Take 6 | | | | 20 | ed | | | mg by mouth on | | | | | | | | Mondays, Wednesday | | | | | | | | and Fridays, take 8 | | | | | | | | mg on all other days | | | | | | + + + +---------+------+------+-------+ | furosemide (LASIX) | | | 0 | 04/2 | 05/1 | Disco | | 20 mg tablet | | | | 01/06 | /20 | ntinu | | | | | | 19 | 20 | ed | | | | | | | | (Erro | | | | | | | | r) | + + + +---------+------+------+-------+ | gabapentin | TAKE ONE CAPSULE BY | | 0 | 02/0 | 05/1 | Disco | | (NEURONTIN) 300 mg | MOUTH THREE TIMES | | | 5/20 | 4/20 | ntinu | | capsule | DAILY | | | 19 | 20 | ed | | | | | | | | (Erro | | | | | | | | r) | + + + +---------+------+------+-------+ | HYDROmorphone | TK 1 T PO Q 4 HOURS | | 0 | 04/2 | 05/1 | Disco | | (DILAUDID) 2 mg | PRN | | | 5/20 | 4/20 | ntinu | | tablet | | | | 19 | 20 | ed | | | | | | | | (Erro | | | | | | | | r) | + + + +---------+------+------+-------+ | lisinopril | | | 0 | 04/0 | 05/1 | Disco | | (PRINIVIL, ZESTRIL) | | | | 8/20 | 4/20 | ntinu | | 5 mg tablet | | | | 19 | 20 | ed | | | | | | | | (Erro | | | | | | | | r) | + + + +---------+------+------+-------+ | methocarbamol | TAKE ONE TABLET BY | | 0 | 02/0 | 05/1 | Disco | | (ROBAXIN) 500 mg | MOUTH THREE TIMES | | | 5/20 | 4/20 | ntinu | | tablet | DAILY NEEDED | | | 19 | 20 | ed | | | | | | | | (Erro | | | | | | | | r) | + + + +---------+------+------+-------+ | potassium chloride | | | 0 | 04/2 | 05/1 | Disco | | (MICRO-K) 10 mEq CR | | | | /20 | /20 | ntinu | | capsule | | | | 19 | 20 | ed | | | | | | | | (Erro | | | | | | | | r) | + + + +---------+------+------+-------+ | cholestyramine | Take 1 packet by | 60 | 0 | 09/0 | 05/1 | Disco | | light (QUESTRAN) 4 g | mouth Daily. | tablet | | 6/20 | 4/20 | ntinu | | packet | | | | 19 | 20 | ed | | | | | | | | (Erro | | | | | | | | r) | + + + +---------+------+------+-------+ | traMADol (ULTRAM) | Take 1 tablet by | 30 | 0 | 08/17 | 08/18 | Disco | | 50 mg tablet | mouth every 6 hours | tablet | | 10/06 | 11/05 | ntinu | | | as needed for Pain. | | | 20 | 20 | ed | | | | | | | | (Ther | | | | | | | | apy | | | | | | | | compl | | | | | | | | eted) | + + + +---------+------+------+-------+ Active Problems + + + | Problem | Noted Date | + + + | Pulmonary hypertension | 09/13/2019 | + + + + + | Overview: Moderate per 08/2019 Echo | + + + + + | Risk factors for obstructive sleep apnea | 09/13/2019 | + + + | Pacemaker | 09/13/2019 | + + + | COPD (chronic obstructive pulmonary disease) | 08/31/2019 | + + + | Symptomatic bradycardia | 08/31/2019 | + + + | Encounter for monitoring diuretic therapy | 09/05/2018 | + + + | Encounter for removal of biliary stent | 08/17/2018 | + + + + + | Overview: Added automatically from request for surgery [id number] | + + + + + | [...] Overview: Added automatically from request for surgery [id number] | + + + + + | [...] bronchitis | 09/29/2017 | + + + Resolved Problems + + + + | Problem | Noted | Resolved | | | Date | Date | + + + + | History of complete heart block | 08/31/19 | | | | 20 | 0 | + + + + + + | Overview: Status post implantation of permanent pacemaker on | | 09/01/2019 | + + Encounters +--------+ + + + + | Date | Type | Specialty | Care Team | Description | +--------+ + + + + | 09/12/ | Office | Cardiology | Sarai Arce | Permanent atrial | | 2019 | Visit | | JUSTA Wang | fibrillation (HCC) | | | | | | (Primary Dx); Mixed | | | | | | hyperlipidemia; Mild | | | | | | [...] | | | | apnea; Pacemaker | +--------+ + + + + | 09/03/ | Virtual | Pulmonology | Tristian Foote MD | Centrilobular | | 2019 | Office | | | emphysema (HCC) | | | Visit | | | (Primary Dx) | +--------+ + + + + | 08/31/ | Surgery | Radiology | Gavin Jean Baptiste MD | CV EP PPM SYSTEM | | 2019 | | | | IMPLANT | +--------+ + + + + | 08/31/ | Documentati | Cardiology | Gina Banda, | Other (IMPLANT | | 2019 | on | | Bridge [employer] Manager | RECORD) | +--------+ + + + + 08/30/ | Hospital | Internal Medicine | Deangelo Jamil DO | Permanent atrial | | 2019 - | Encounter | | Dada Briones MD | fibrillation (HCC) | | | | | | (Primary Dx); | | 09/01/ | | | | Complete heart block | | 2019 | | | | (HCC); Symptomatic | | | | | | bradycardia | +--------+ + + + + 08/30/ | Intake | | | N/A | | 2020 | | | | | +--------+ + + + + | 08/28/ | Telephone | Pulmonology | Tristian Foote MD | Other (CT Scan) | | 2020 | | | | | +--------+ + [...] Appointment (Cancel | | 2019 | | | MD Chuy [...] | | 2 | 20 | Quit: 2001 | + +-------+ +--------+ + + +---+---+---+ [...] | | | | | | [place] [address] | | | | | | [phone] | | | | | | | | +--------+---------+ + + + | 03/06/ | Office | Pulmonology | Tristian Foote MD | | | 2019 | Visit | | [address] | | | | | | [place] [facility] [place] | | | | | | [address] | | | | | | | [...] + + + + + Implants + +--------+-------+ +--------+--------+--------+ | Implanted | Type | Area | Manufacture | Device | Shelf | Model | | | | | r | | Expira | / | | | | | | Identi | tion | Serial | | | | | | fier | Date | / Lot | + +--------+-------+ +--------+--------+--------+ | Pacemaker Accolade Vr Mri - | Pacema | | CORTEZ | | | [id number] | | [id number]: Qty: 1 on | ker | | SCIENTIFIC | | | /[id number] | | 09/01/2019 by Gavin Jean Baptiste, | | | TYLER - BSCI | | | 6 / | | MD at [facility] | | | | | | | | [facility] | | | | | | | + +--------+-------+ +--------+--------+--------+ | Stent Bili Advnx 10fr 5cm - | | N/A: | [employer]TEZ | | 01/26/ | [id number] | | [id number]: Qty: 1 on | | Bile | SCIENTIFIC | | 2019 | 320 / | | 08/03/2018 by Laurie, | | Duct | TYLER - BSCI | | | /[id number] | | Cholo Vera MD | | | | | | 219 | + +--------+-------+ +--------+--------+--------+ | Ingevity Pacer/Sense Lead | | N/A: | [employer]Z | [id number] | 05/22/ | [id number] | | Implanted: Qty: 1 on | | Heart | SCIENTIFIC | [id number] | 2021 | /[id number] | | 09/01/2019 by Gavin Jean Baptiste, | | | TYLER - BSCI | 22 | | 29 / | | at [facility] | | | | | | | | [facility] | | | | | | | + +--------+-------+ +--------+--------+--------+ + + | Description:[facility] | | INGEVITY PACE/SENSE LEAD | + + Procedures + +--------+ + + [...] + + from Last 3 Months Results ECG 12 lead (09/13/2019 10:54 AM [...] | | | | | SARAI MARR ([id number]) on | | | | | | [...] | + +---------+ + + XR Chest PA and Lateral (09/02/2019 7:37 AM PDT) + + | Specimen | + + | | + + + + + | Impressions | Performed At | + + + | Unipolar right ventricular pacemaker electrode in the right | [facility] | | ventricle as above. No pneumothorax. 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 | | | Signed by: Pankaj Munoz Michael Sign Date/Time: 09/02/2019 8:15 | | [...] + + | Perfecto, Rad Results In 09/02/2019 8:19 AM PDT | | CHEST [...] ventricle | | as above. No pneumothorax. Natural [employer] Basis Trader to doll maker the depth of the | | position of the ventricular pacemaker electrode. | | | | | | | | Signed by: Pankaj Munoz Michael | | Sign Date/Time: 09/02/2019 8:15 AM | + + + +---------+ + + | Performing | Address | City/State/[facility] | Phone Number | | Organization | | | | + +---------+ + + | [facility] | | | | + +---------+ + + Basic Metabolic Panel (09/02/2019 5:53 AM PDT)Only the most recent of 2 results within the time period is included. + + + + + + | [...] | >60Comment: GFR <60: | >60 | [facility] | | | GFR | CHRONIC KIDNEY [...] | | | | | performed at [facility], [address] | | | | | [place], | | | | | | [place] [address] | | | | + + + + + + + + | Specimen | + + | Blood | + + + + + + + | Performing | Address | City/State/Zipcode | Phone Number | | Organization | | | | + + + + + | [facility] | [address] | [place] [address] | [phone] | + + + + + CV EP PROCEDURE (09/01/2019 2:08 PM PDT) + + | Specimen | + + | | + + + + + | Narrative | Performed At | + + + | | | | ConclusionSuccessful implantation of single-chamber, MRI compatible, | | | Effdon permanent pacemaker EquipmentGenerator is Novel | | | Guaranteach Accolade MRI DR IS | | | | | | 1, model #L310, serial #[id number].RV lead is Effdon INGEVITY | | | MRI IS | | | | | | 1 bi-positive fix RV 59 cm, model #7842, serial #[id number]. Device | | | measurementsRV is 10.9 [...] + + Protime INR (09/01/2019 10:33 AM PDT)Only the most recent of 2 results within the time raúl od is included. + + + + + + | [...] | | | | performed at [facility];[address] | | | | | | [address];[place], [place] | | | | | | [address] | | | | + + + + + + + + | Specimen | + + | Blood | + + + + + + + | Performing | Address | City/State/Zipcode | Phone Number | | Organization | | | | + + + + + | [facility] | [address] | [place] [address] | [phone] | + + + + + CBC [...] | | | Absolute | performed at [facility];[address] | [address] | LABORATORY | | | | [address];[place] | | | | | | [address] | | | | + + + + + + + + | Specimen | + + | Blood | + + + + + + + | Performing | Address | City/State/Zipcode | Phone Number | | Organization | | | | + + + + + | [facility] | [address] [facility] [facility] | [place] [address] | [phone] | + + + + + Magnesium (09/01/2019 4:07 AM PDT) + + + + + + | Component | Value | Ref Range | Performed | Pathologist | | | | | At | Signature | + + + + + + | Magnesium | 1.8Comment: Testing | 1.7 - 2.4 mg/dL | [facility] | | | | performed at [facility];[address] | | LABORATORY | | | | [address];[place], [place] | | | | | | [address] | | | | + + + + + + + + | Specimen | + + | Blood | + + + + + + + | Performing | Address | City/State/Zipcode | Phone Number | | Organization | | | | + + + + + | [facility] | [address] | [place] [address] | [phone] | + + + + + from [...] +--------+ +---------+--------+ | MEDICARE | [facility] | [id number] | 08/18/19 | [phone] | | Medica | | | AD | | 04-Pre | 5 | | re | | | MEDICA | | sent | | | | | | RE | | | | | | + +--------+ +--------+ +---------+--------+ | MEDICARE | [facility] | [id number] | 08/18/19 | [phone] | | Medica [...] Vishnu | al/Fam | | 1955 | [phone] | [place] | | | [place] | | | 0 (Home) | [address] | + +--------+ +--------+ + + | Mason Champion | Person | Self | [birth year] | [address] | | Vishnu | susan/Nelson | | 8 | [phone] | [place] | | | [place] | | | 0 (Home) | [address] | + +--------+ +--------+ + + Advance Directives + + + + + | Type | Date Recorded | Patient | Explanation | | | | Cut Out Stitcher | | + + + + + | Power of | | | | | Process Automation Engineer | | | | + + + + + | Advance | 09/01/2019 4:23 | | | | Directive | PM | | | + + + + + + + + + + | Code Status | Date | Date | Comments | | | Activated | Inactivated | | + + + + + | Full Code | 08/31/2019 | 09/02/2019 | | | | 10:17 PM | 12:15 PM | | + + + + +
--- OUTSIDE RECORDS SUMMARY | ~2019-09-15 | XMS | Encounter Summary ---
Demographics + + + | Address | [address] | | | [place] [address] | + + + | Home Phone | | + + + | Preferred Language | Unknown | + + + | Marital Status | | + + + | Tenriism Affiliation | 1013 | + + + | Race | Unknown | + + + | Ethnic Group | Unknown | + + + Author + + + | Author | [facility] | | | and [place] | + + + | Organization | [facility] | | | [...] Providers + +------+ + | Care Insurance Claim Approver Name | Role | Phone | + [...] + + | 12/21/ | Telephone | [facility] | Michele Motta MD | Follow-up | | 2019 | | GENERAL SURGERY [address] | [address] [place] | (reschedule) | | | | [address] | [address] [place], [place] | | | | | [place], [place] | [address] | | | | | [address] | | | | | | [phone] | | | +--------+ + + + [...] | | | | | [place] [address] | | | | | | [phone] | | | | | | | | +--------+---------+ + + + | 03/06/ | Office | Pulmonology | Tristian Foote MD | | | 2019 | Visit | | [address] | | | | | | [place] | | | | | | [address] | | | | | | | | +--------+---------+ + + + documented as of this encounter Visit Diagnoses Not on filedocumented in this encounter"
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
--- OUTSIDE RECORDS SUMMARY | ~2019-09-15 | XMS | Encounter Summary ---
Demographics + + + | Address | [address] | | | [place] [address] | + + + | Home Phone | | + + + | Preferred Language | Unknown | + + + | Marital Status | | + + + | Sabianist Affiliation | 1013 | + + + | Race | Unknown | + + + | Ethnic Group | Unknown | + + + Author + + + | Author | [facility] | | | and [place] | + + + | Organization | [facility] | | | [...] Providers + +------+ + | Care Supervisor Testing Name | Role | Phone | + +------+ + | Landen Schaffer MD | PCP | | + +------+ + Encounter Details +--------+ + + + + | Date | Type | Department | Care Team | Description | +--------+ + + + + | 06/22/ | Hospital | [facility] | Licha Motta MD | | | 2019 | Encounter | [facility] | [address] | | | | | INTRA OP [address] | [address] [place], [place] | | | | | [address] [place] | [address] | | | | | [address] | | | | | | [phone] | | | +--------+ + + + [...] Summaries by Licha Motta MD at 06/22/18 9680 Author: Licha Motta MD Service: General Surgery Author Type: Physician Filed: 06/22/18 9976 Date of Service: 06/22/18 1533 Status: Signed Mechanic Helper: Licha Motta MD (Physician) [facility] Service: General Surgery Brief Post-op Discharge [...] on file. Follow up: Licha Motta MD [address] [place] [phone] In 1 week for routine post operative visit. Maria Vieira PA-C [address] [place] [address] Medication List CONTINUE [...] | | 2019 | Visit | | JSUTA Wang [address] | | | | | | [address] | | | | | | [place] [address] | | | | | | [phone] | | | | | | | | +--------+---------+ + + + | 03/06/ | Office | Pulmonology | Tristian Foote MD | | | 2019 | Visit | | [address] | | | | | | [place] | | | | | | [address] | | | | | | | [...] | | | | | performed at [facility] | | | | | | [facility];[place], [place] | | | | | | [address] | | | | + + + [...]
--- OUTSIDE RECORDS SUMMARY | ~2019-09-15 | XMS | Encounter Summary ---
Demographics + + + | Address | [address] | | | [place] [address] | + + + | Home Phone | | + + + | Preferred Language | Unknown | + + + | Marital Status | | + + + | Sabianism Affiliation | 1013 | + + + | Race | Unknown | + + + | Ethnic Group | Unknown | + + + Author + + + | Author | [facility] | | | and [place] | + + + | Organization | [facility] | | | [...] + +------+ + | Care Director Of Player Personnel Name | Role | Phone | + [...] [address] | [address] [place] | Dr. Motta) | | | | [address] | [address] [place], [place] | | | | | [place], [place] | [address] | | | | | [address] | | | | | | [phone] | | | +--------+ + + + [...] [address]Z | | | | | | [place] [address] | | | | | | [phone] | | | | | | | | +--------+---------+ + + + | 03/06/ | Office | Pulmonology | Tristian Foote MD | | | 2019 | Visit | | [address] | | | | | | [place] | | | | | | [address] | | | | | | | | +--------+---------+ + + + documented as of this encounter Visit Diagnoses Not on filedocumented in this encounter"
--- OUTSIDE RECORDS SUMMARY | ~2019-09-15 | XMS | Encounter Summary ---
Demographics + + + | Address | [address] | | | [place] [address] | + + + | Home Phone | | + + + | Preferred Language | Unknown | + + + | Marital Status | | + + + | Latter Day Affiliation | 1013 | + + + | Race | Unknown | + + + | Ethnic Group | Unknown | + + + Author + + + | Author | [facility] | | | and [place] | + + + | Organization | [facility] | | | [...] Team Providers + +------+ + | Care Microphone Operator Name | Role | Phone | [...] + + | 03/10/ | Refill | [facility] | Tristian Foote MD | Medication Refill | | 2019 | | PULMONOLOGY [address] | [address] | | | | | [address] | [place], [place] | | | | | [place], [place] | [address] | | | | | [address] | | | | | | [phone] | | | +--------+--------+ + + + [...] | 01/17/ | Office | Cardiology | Claude Sarai | | | 2019 | Visit | | [address] | | | | | | [address] [place] | | | | | | [place] [address] | | | | | | [phone] | | | | | | | | +--------+---------+ + + + | 03/06/ | Office | Pulmonology | Tristian Foote MD | | | 2019 | Visit | | [address] | | | | | | [place] | | | | | | [address] | | | | | | | | +--------+---------+ + + + documented as of this encounter Visit Diagnoses Not on filedocumented in this encounter"
--- OUTSIDE RECORDS SUMMARY | ~2019-09-15 | XMS | Encounter Summary ---
Demographics + + + | Address | [address] | | | [place] [address] | + + + | Home Phone [...] Team Providers + +------+ + | Care Health And Safety Representative Name | Role | Phone | [...] | | | | | Complete | [place] | [address] | | | | | | [address] | Phone: | | | | | | Phone: | [phone] | | | | | | [phone] | Fax: | | | | | | Fax: | [phone] | | | | | | [phone] | | + +--------+ + + + + Encounter Details +--------+ + + + + | Date | Type | Department | Care Team | Description | +--------+ + + + + | 08/27/ | Orders Only | [facility] | Tristian Foote MD | Pulmonary HTN (HCC) | | 2020 | | PULMONOLOGY [address] | [address] | (Primary Dx) | | | | [address] | [place] | | | | | [place] | [address] | | | | | [address] | | | | | | [phone] | | | +--------+ + + + [...] GOMEZ | | | | | | [facility] [place] [address] | | | | | | [phone] | | | | | | | | +--------+---------+ + + + | 03/06/ | Office | Pulmonology | Tristian Foote MD | | | 2019 | Visit | | [address] | | | | | | [place] | | | | | | [address] | | | | | | | | +--------+---------+ + + + + + +--------+ + + | Name | Type | Priori | Associated Diagnoses | Order Schedule | | | | ty | | | + + +--------+ + + | ECHO Complete | Echocardiog | Routin | Pulmonary HTN | Expected: | | | elise | e | ([facility]) | 08/28/2019, Expires: | | | | | | 08/27/2020 | + + +--------+ + + documented as of this encounter Visit Diagnoses + + | Diagnosis | + + | Pulmonary HTN (HCC) - Primary Other chronic pulmonary heart diseases | + + documented in this encounter"
--- OUTSIDE RECORDS SUMMARY | ~2019-09-15 | XMS | Encounter Summary ---
Demographics + + + | Address | [address] | | | [place] [address] | + + + | Home Phone | | + + + | Preferred Language | Unknown | + + + | Marital Status | | + + + | Pentecostal Affiliation | 1013 | + + + | Race | Unknown | + + + | Ethnic Group | Unknown | + + + Author + + + | Author | [facility] | | | and [place] | + + + | Organization | [facility] | | [...] Team Providers + +------+ + | Care Automatic Coil Machine Operator Name | Role | Phone | + +------+ + PCP | Unavailable | + +------+ + Encounter Details +--------+ + + + + | Date | Type | Department | Care Team | Description | +--------+ + + + + | 02/09/ | Hospital | [facility] | | | | 1993 | Encounter | MED CTR XRAY [address] | | | | | | [place] | | | | | | [place] [address] | | | | | | [phone] | | | +--------+ + + + [...] | | | | | [place] [address] | | | | | | [phone] | | | | | | | | +--------+---------+ + + + | 03/06/ | Office | Pulmonology | Tristian Foote MD | | | 2020 | Visit | | [address] | | | | | | [place] | | | | | | [address] | | | | | | | | +--------+---------+ + + + documented as of this encounter Visit Diagnoses Not on filedocumented in this encounter"
--- OUTSIDE RECORDS SUMMARY | ~2019-09-15 | XMS | Encounter Summary ---
Demographics + + + | Address | [address] | | | [place] [address] | + + + | Home Phone [...] Team Providers + +------+ + | Care Signals Analyst Name | Role | Phone | [...] | | | | | Complete | [place] | [address] | | | | | | [address] | Phone: | | | | | | Phone: | [phone] | | | | | | [phone] | Fax: | | | | | | Fax: | [phone] | | | | | | [phone] | | + +--------+ + + + + Encounter Details +--------+ + + + + | Date | Type | Department | Care Team | Description | +--------+ + + + + | 08/27/ | Orders Only | [facility] | Tristian Foote MD | Pulmonary HTN (HCC) | | 2020 | | PULMONOLOGY [address] | [address] | (Primary Dx) | | | | [address] | [place] | | | | | [place] | [address] | | | | | [address] | | | | | | [phone] | | | +--------+ + + + [...] GOMEZ | | | | | | [facility] [place] [place] [address] | | | | | | [phone] | | | | | | | | +--------+---------+ + + + | 03/06/ | Office | Pulmonology | Tristian Foote MD | | | 2019 | Visit | | [address] | | | | | | [place] | | | | | | [address] | | | | | | | | +--------+---------+ + + + + + +--------+ + + | Name | Type | Priori | Associated Diagnoses | Order Schedule | | | | ty | | | + + +--------+ + + | ECHO Complete | Echocardiog | Routin | Pulmonary HTN | Expected: | | | elise | e | ([facility]) | 08/28/2019, Expires: | | | | | | 08/27/2020 | + + +--------+ + + documented as of this encounter Visit Diagnoses + + | Diagnosis | + + | Pulmonary HTN (HCC) - Primary Other chronic pulmonary heart diseases | + + documented in this encounter"
--- OUTSIDE RECORDS SUMMARY | ~2019-09-15 | XMS | Encounter Summary ---
Demographics + + + | Address | [address] | | | [place] [address] | + + + | Home Phone | | + + + | Preferred Language | Unknown | + + + | Marital Status | | + + + | Yarsani Affiliation | 1013 | + + + | Race | Unknown | + + + | Ethnic Group | Unknown | + + + Author + + + | Author | [facility] | | | and [place] | + + + | Organization | [facility] | | | [...] Team Providers + +------+ + | Care Wiper Blender Name | Role | Phone | + [...] + + | 12/23/ | Office | [facility] | Michele Motta MD | Bloating (Primary | | 2019 | Visit | GENERAL SURGERY [address] | [address] [place] | Dx); Postprandial | | | | [address] | [address] [place], [place] | epigastric pain | | | | [place], [place] | [address] | | | | | [address] | | | | | | [phone] | | | +--------+---------+ + + + [...] sign of hernias. Abdomen is nontender. Assessment Dining Room Maid postoperative bloating and diarrhea following Janene fundoplication. [...] | | | | | [place] [address] | | | | | | [phone] | | | | | | | | +--------+---------+ + + + | 03/06/ | Office | Pulmonology | Tristian Foote MD | | | 2019 | Visit | | [address] | | | | | | [place] | | | | | | [address] | | | | | | | | +--------+---------+ + + + documented as of this encounter Visit Diagnoses + + | Diagnosis | + + | Bloating - Primary Flatulence, eructation, and gas pain | + + | Postprandial epigastric pain Abdominal pain, epigastric | + + documented in this encounter"
--- OUTSIDE RECORDS SUMMARY | ~2019-09-15 | XMS | Encounter Summary ---
Demographics + + + | Address | [address] | | | [place] [address] | + + + | Home Phone | | + + + | Preferred Language | Unknown | + + + | Marital Status | | + + + | Advent Affiliation | 1013 | + + + | Race | Unknown | + + + | Ethnic Group | Unknown | + + + Author + + + | Author | [facility] | | | and [place] | + + + | Organization | [facility] | | | [...] Team Providers + +------+ + | Care Nail Kegger Name | Role | Phone | + +------+ + | Landen Schaffer MD | PCP | | + +------+ + Encounter Details +--------+ + + + + | Date | Type | Department | Care Team | Description | +--------+ + + + + | 06/06/ | [facility] | [facility] | Conversion | Lung bullae (HCC) | | 2019 | Encounter | [facility] XRAY | Transaction, | | | | | [address] | Provider Unknown | | | | | [place], [place] | [phone] | | | | | [address] | | | | | | [phone] | Ernst Victoria PA | | | | | | [address] | | | | | | [place], [place] | | | | | | [address] | | | | | | | [...] | | | | | [place] [address] | | | | | | [phone] | | | | | | | | +--------+---------+ + + + | 03/06/ | Office | Pulmonology | Tristian Foote MD | | | 2019 | Visit | | [address] | | | | | | [place] | | | | | | [address] | | | | | | | [...]
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
--- OUTSIDE RECORDS SUMMARY | ~2019-09-15 | XMS | Encounter Summary ---
Demographics + + + | Address | [address] | | | [place] [address] | + + + | Home Phone | | + + + | Preferred Language | Unknown | + + + | Marital Status | | + + + | Gnosticism Affiliation | 1013 | + + + | Race | Unknown | + + + | Ethnic Group | Unknown | + + + Author + + + | Author | [facility] | | | and [place] | + + + | Organization | [facility] | | | and [...] Team Providers + +------+ + | Care Patented Hogshead Assembler Name | Role | Phone | + +------+ + | Landen Schaffer MD | PCP | | + +------+ + Encounter Details +--------+ + + + + | Date | Type | Department | Care Team | Description | +--------+ + + + + | 07/21/ | Hospital | [facility] | Conversion | | | 2019 | Encounter | [facility] | Transaction, | | | | | CLINIC [address] | Provider Unknown | | | | | [place] | [phone] | | | | | [address] | | | | | | [phone] | | | +--------+ + + + [...] [address] | | | | | | [place] [address] | | | | | | [phone] | | | | | | | | +--------+---------+ + + + | 03/06/ | Office | Pulmonology | Tristian Foote MD | | | 2019 | Visit | | [address] | | | | | | [place] | | | | | | [address] | | | | | | | [...] documented in this encounter Results Protime INR (07/21/2018 5:20 PM PDT) + + [...] | performed at [facility] | | | | | | [facility];[place], [place] | | | | | | [address] | | | | + + + [...] | | | Basophils | performed at [facility], [address] | [address] | LAB | | | | [address], | | | | | | [place] [address] | | | | + + + [...] | | | | | performed at [facility], [address] | | | | | | [facility], | | | | | | [place] [address] | | | | + + + [...] | performed at [facility];[address] [place] [address];[place] [address] | | + + + + +---------+ [...] + + | Historically converted procedure from [facility] environment | EXTERNAL LAB | + + + + +---------+ + + | Performing | Address | City/State/Zipcode | Phone Number | | Organization | | | | + +---------+ + + | EXTERNAL LAB | | | | + +---------+ + + documented in this encounter Visit Diagnoses Not on filedocumented in this encounter"
--- OUTSIDE RECORDS SUMMARY | ~2019-09-15 | XMS | Clinical Summary ---
Demographics + + + | Address | [address] | | | [place] [address] | + + + | Home Phone | | + + + | Preferred Language | Unknown | + + + | Marital Status | | + + + | Denominational Affiliation | 1013 | + + + | Race | Unknown | + + + | Ethnic Group | Unknown | + + + Author + + + | Author | [facility] (Historical as of | | | 12-03-18) | + + + | Organization | [facility] (Historical as of | | | 12-03-18) [...] Team Providers + +------+ + | Care Contracts Specialist Name | Role | Phone | [...] + + + + + | Tiotropium [place] | Shortness of Breath | High | [...] Overview: Added automatically from request for surgery [id number] | + + + + + | [...] Overview: Added automatically from request for surgery [id number] | + + + + + | Other emphysema ([facility]) | 05/05/2018 | + + + | Lung disease, bullous ([facility]) | 05/05/2018 | + + + | [...] N/A: | [facility] | | 01/26/ | [id number] | | [id number]: Qty: 1 on | | Bile | SCIENTIFIC | | 2019 | 320 / | | 08/03/2018 by Laurie, | | Duct | [facility] | | | /[id number] | | Cholo Vera MD | | [...] +------+-------+ + | MEDICARE | MEDICA | [id number] | | | [address] | | | RE | | | | [place] [address] | | | LAURA | | | [...] DEX | al/Nelson | | 1955 | [phone] | [place], [place] | | | jeanne | | | [address] | [address] | + +--------+ +--------+ + +"
--- OUTSIDE RECORDS SUMMARY | ~2019-09-15 | XMS | Encounter Summary ---
Demographics + + + | Address | [address] | | | [place] [address] | + + + | Home Phone | | + + + | Preferred Language | Unknown | + + + | Marital Status | | + + + | Bahai Affiliation | 1013 | + + + | Race | Unknown | + + + | Ethnic Group | Unknown | + + + Author + + + | Author | [facility] | | | and [place] | + + + | Organization | [facility] | | | [...] Team Providers + +------+ + | Care Sports Equipment Supervisor Name | Role | Phone | [...] + + | 07/12/ | Telephone | [facility] | Cholo Sullivan | Appointment (Cancel | | 2019 | | GASTROENTEROLOGY | MD Chuy [address] | 07/17) | | | | [address] | [place] [address] | | | | | [place], [place] | [phone] | | | | | [address] | | | | | | [phone] | | | +--------+ + + + [...] [place] | | | | | | [place] [address] | | | | | | [phone] | | | | | | | | +--------+---------+ + + + | 03/06/ | Office | Pulmonology | Tristian Foote MD | | | 2019 | Visit | | [address] | | | | | | [place] | | | | | | [address] | | | | | | | | +--------+---------+ + + + documented as of this encounter Visit Diagnoses Not on filedocumented in this encounter"
--- OUTSIDE RECORDS SUMMARY | ~2019-09-15 | XMS | Encounter Summary ---
Demographics + + + | Address | [address] | | | [place] [address] | + + + | Home Phone | | + + + | Preferred Language | Unknown | + + + | Marital Status | | + + + | Confucianist Affiliation | 1013 | + + + | Race | Unknown | + + + | Ethnic Group | Unknown | + + + Author + + + | Author | [facility] | | | and [place] | + + + | Organization | [facility] | | | [...] Team Providers + +------+ + | Care Pharmacy Informatics Manager Name | Role | Phone | [...] + + | 12/15/ | Telephone | [facility] | Michele Motta MD | Other (message for | | 2019 | | GENERAL SURGERY [address] | [address] | Dr. Motta) | | | | [address] | [address] [place], [place] | | | | | [place], [place] | [address] | | | | | [address] | | | | | | [phone] | | | +--------+ + + + [...] [address] | | | | | | [place] [address] | | | | | | [phone] | | | | | | | | +--------+---------+ + + + | 03/06/ | Office | Pulmonology | Tristian Foote MD | | | 2019 | Visit | | [address] | | | | | | [place] | | | | | | [address] | | | | | | | | +--------+---------+ + + + documented as of this encounter Visit Diagnoses Not on filedocumented in this encounter"
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
--- OUTSIDE RECORDS SUMMARY | ~2019-09-15 | XMS | Encounter Summary ---
Demographics + + + | Address | [address] | | | [place] [address] | + + + | Home Phone | | + + + | Preferred Language | Unknown | + + + | Marital Status | | + + + | Church Affiliation | 1013 | + + + | Race | Unknown | + + + | Ethnic Group | Unknown | + + + Author + + + | Author | [facility] | | | and [place] | + + + | Organization | [facility] | | | [...] Team Providers + +------+ + | Care Grease And Tallow Pumper Name | Role | Phone | + +------+ + | Landen Schaffer MD | PCP | | + +------+ + Encounter Details +--------+ + + + + | Date | Type | Department | Care Team | Description | +--------+ + + + + | 05/10/ | Hospital | [facility] | Conversion | | | 2019 | Encounter | [facility] | Transaction, | | | | | CLINIC [address] | Provider Unknown | | | | | [place] | [phone] | | | | | [address] | | | | | | [phone] | | | +--------+ + + + [...] | | 2020 | Visit | | Kathleen, AUTOMATIC SILK SCREEN PRINTER [address] | | | | | | [address] | | | | | | [place] [address] | | | | | | [phone] | | | | | | | | +--------+---------+ + + + | 03/06/ | Office | Pulmonology | Tristian Foote MD | | | 2019 | Visit | | [address] | | | | | | [place] | | | | | | [address] | | | | | | | | +--------+---------+ + + + documented as of this encounter Procedures + +--------+ + + + | Procedure Name | Priori | Date/Time | Associated Diagnosis | Comments | | | ty | | | | + +--------+ + + + | EXTERNAL LAB: [facility] | Routin | 05/10/2018 | | Results [...] | | | Patient | performed at [facility];[address] | | LAB | | | | [address];[place] | | | | | | [address] | | | | + + + + + + + + | Specimen | + + | Blood specimen | | (specimen) | + + + +---------+ + + | Performing | Address | City/State/Zipcode | Phone Number | | Organization | | | | + +---------+ + + | EXTERNAL LAB | | | | + +---------+ + + Luciaime INR (05/10/2018 1:06 PM PST) + + [...] | | | | | performed at [facility] | | | | | | [facility];[place], [place] | | | | | | [address] | | | | + + + [...] | | | Basophils | performed at [facility], [address] | [address] | LAB | | | | [address], | | | | | | [place] [address] | | | | + + + [...] | | | | | performed at [facility], [address] | | | | | | [address] [facility], | | | | | | [place] [address] | | | | + + + [...] NEGATIVE Testing | | | performed at [facility];[address] [place] [address];[place] [address] | | + + + + +---------+ [...] | | | Screen | performed at [facility];[address] | | LAB | | | | [address];[place], [place] | | | | | | [address] | | | | + + + [...]
--- OUTSIDE RECORDS SUMMARY | ~2019-09-15 | XMS | Encounter Summary ---
Demographics + + + | Address | [address] | | | [place] [address] | + + + | Home Phone [...] Team Providers + +------+ + | Care Piano Case And Bench Assembler Name | Role | Phone | + +------+ + | Landen Schaffer MD | PCP | | + +------+ + Encounter Details +--------+ + + + + | Date | Type | Department | Care Team | Description | +--------+ + + + + | 11/08/ | Orders Only | [facility] | Provider, | Essential (primary) | | 2019 | | SYSTEM GENERIC OP | MD [address] | hypertension; | | | | CONVERSION [address] | [address] | Shortness of breath; | | | | [address] [place], [place] | [place] [address] | Encounter for | | | | [address] | | screening for lipoid | | | | [phone] | | disorders; Long | | | [...] [address] | | | | | | [place] [address] | | | | | | [phone] | | | | | | | | +--------+---------+ + + + | 03/06/ | Office | Pulmonology | Tristian Foote MD | | | 2020 | Visit | | [address] | | | | | | [place] | | | | | | [address] | | | | | | | | +--------+---------+ + + + + +------+--------+ + + [...] | Differential | | e | breath long-term | 05/05/2018, Expires: | | | | [...] for lipoid disorders | + + | long-term current use of anticoagulant Encounter for long-term [...]
--- OUTSIDE RECORDS SUMMARY | ~2019-09-15 | XMS | Clinical Summary ---
Demographics + + + | Address | [address] | | | [place] [address] | + + + | Home Phone [...] Team Providers + +------+ + | Care Electromechanical Technician Name | Role | Phone | [...] Overview: Added automatically from request for surgery [id number] | + + + + + | [...] Overview: Added automatically from request for surgery [id number] | + + + + + | [...] | | 2019 | on | | Director Of Rooms | RECORD) | +--------+ + + + [...] | | | | | | [place] [address] | | | | | | [phone] | | | | | | | | +--------+---------+ + + + | 03/06/ | Office | Pulmonology | Tristian Foote MD | | | 2019 | Visit | | [address] | | | | | | Michael E [facility] [place] | | | | | | [address] | | | | | | | [...] CORTEZ | | | [id number] | | [id number]: Qty: 1 on | ker | | SCIENTIFIC | | | /[id number] | | 09/01/2019 by Gavin Jean Baptiste, | | | TYLER - BSCI | | | 6 / | | MD at [facility] | | | | | | | | [facility] | | | | | | | + +--------+-------+ +--------+--------+--------+ | Stent Bili Advnx 10fr 5cm - | | N/A: | CORTEZ | | 01/26/ | [id number] | | [id number]: Qty: 1 on | | Bile | SCIENTIFIC | | 2019 | 320 / | | 08/03/2018 by Laurie, | | Duct | TYLER - BSCI | | | /[id number] | | Cholo Vera MD | | | | | | 219 | + +--------+-------+ +--------+--------+--------+ | Ingevity Pacer/Sense Lead | | N/A: | [facility] | [id number] | 05/22/ | [id number] | | Implanted: Qty: 1 on | | Heart | SCIENTIFIC | [id number] | 2021 | /[id number] | | 09/01/2019 by Gavin Jean Baptiste, | | | TYLER - BSCI | 22 | | 29 / | | at [facility] | | | | | | | | [facility] | | | | | | | + +--------+-------+ +--------+--------+--------+ + + | Description:[facility] | | INGEVITY PACE/SENSE LEAD | [...] | | | | | SARAI MARR ([id number]) on | | | | | | [...] | | ventricle as above. No pneumothorax. Subassembly Supervisor to grip wrapper the | | | depth of the [...] ventricle | | as above. No pneumothorax. Subassembly Supervisor to grip wrapper the depth of the | | position of the ventricular pacemaker electrode. | | | | | | | | Signed by: Pankaj Munoz Michael | | Sign Date/Time: 09/02/2019 8:15 AM | + + + +---------+ + + | Performing | Address | City/State/[facility] | Phone Number | | Organization | [...] | | | | | [place] [address] | | | | + + + + + + + + | Specimen | + + | Blood | + + + + + + + | Performing | Address | City/State/Zipcode | Phone Number | | Organization | | | | + + + + + | [facility] | [address] | [place] [address] | [phone] | + + + + + CV EP PROCEDURE (09/01/2019 2:08 PM PDT) + + | Specimen | + + | | + + + + + | Narrative | Performed At | + + + | | | | ConclusionSuccessful implantation of single-chamber, MRI compatible, | | | Human Demand permanent pacemaker EquipmentGenerator is Yorder | | | FanSnap Accolade MRI DR IS | | | | | | 1, model #L310, serial #[id number].RV lead is Human Demand INGEVITY | | | MRI IS | | | | | | 1 bi-positive fix RV 59 cm, model #7842, serial #[id number]. Device | | | measurementsRV is 10.9 [...] | | | | | performed at [facility];[address] | | | | | | [address];[place], [place] | | | | | | [address] | | | | + + + + + + + + | Specimen | + + | Blood | + + + + + + + | Performing | Address | City/State/Zipcode | Phone Number | | Organization | | | | + + + + + | [facility] | [address] | [place] [address] | [phone] | + + + + + CBC [...] | | | Absolute | performed at [facility];[address] | [address] | LABORATORY | | | | [address];[place] | | | | | | [address] | | | | + + + + + + + + | Specimen | + + | Blood | + + + + + + + | Performing | Address | City/State/Zipcode | Phone Number | | Organization | | | | + + + + + | [facility] | [address] | [place] [address] | [phone] | + + + + + Magnesium (09/01/2019 4:07 AM PDT) + + + + + + | Component | Value | Ref Range | Performed | Pathologist | | | | | At | Signature | + + + + + + | Magnesium | 1.8Comment: Testing | 1.7 - 2.4 mg/dL | [facility] | | | | performed at [facility];[address] | | LABORATORY | | | | [address];[place], [place] | | | | | | [address] | | | | + + + + + + + + | Specimen | + + | Blood | + + + + + + + | Performing | Address | City/State/Zipcode | Phone Number | | Organization | | | | + + + + + | [facility] | [address] | [place] [address] | [phone] | + + + + + from [...] +--------+ +---------+--------+ | MEDICARE | [facility] | [id number] | 08/18/19 | [phone] | | Medica | | | AD | | 04-Pre | 5 | | re | | | MEDICA | | sent | | | | | | RE | | | | | | + +--------+ +--------+ +---------+--------+ | MEDICARE | [facility] | [id number] | 08/18/19 | [phone] | | Medica [...] Vishnu | al/Fam | | 1955 | [phone] | [place] | | | [place] | | | 0 (Home) | [address] | + +--------+ +--------+ + + | Mason Champion | Person | Self | [birth year] | [address] | | Vishnu | susan/Nelson | | 8 | [phone] | [place] | | | [place] | | | 0 (Home) | [address] | + +--------+ +--------+ + + Advance Directives + + + + + | Type | Date Recorded | Patient | Explanation | | | | Molded Goods Operator | | + + + + + | Power of | | | | | Study Abroad Coordinator | | | | + + + [...]
--- OUTSIDE RECORDS SUMMARY | ~2019-09-15 | XMS | Encounter Summary ---
Demographics + + + | Address | [address] | | | [place] [address] | + + + | Home Phone | | + + + | Preferred Language | Unknown | + + + | Marital Status | | + + + | Restorationist Affiliation | 1013 | + + + | Race | Unknown | + + + | Ethnic Group | Unknown | + + + Author + + + | Author | [facility] | | | and [place] | + + + | Organization | [facility] | | [...] Team Providers + +------+ + | Care History Instructor Name | Role | Phone | + +------+ + | Landen Schaffer MD | PCP | | + +------+ + Encounter Details +--------+ + + + + | Date | Type | Department | Care Team | Description | +--------+ + + + + | 11/08/ | Orders Only | [facility] | Provider, | Essential (primary) | | 2019 | | SYSTEM GENERIC OP | MD [address] | hypertension; | | | | CONVERSION [address] | [address] | Shortness of breath; | | | | [address] [place], [place] | [place] [address] | Encounter for | | | | [address] | | screening for lipoid | | | | [phone] | | disorders; Long | | | [...] [address] | | | | | | [place] [address] | | | | | | [phone] | | | | | | | | +--------+---------+ + + + | 03/06/ | Office | Pulmonology | Tristian Foote MD | | | 2020 | Visit | | [address] | | | | | | [place] | | | | | | [address] | | | | | | | [...] | Differential | | e | breath [facility] | 05/05/2018, Expires: | | | | [...] for lipoid disorders | + + | [facility] current use of anticoagulant Encounter for long-term [...]
--- OUTSIDE RECORDS SUMMARY | ~2019-09-15 | XMS | Encounter Summary ---
Demographics + + + | Address | [address] | | | [place] [address] | + + + | Home Phone | | + + + | Preferred Language | Unknown | + + + | Marital Status | | + + + | Lutheran Affiliation | 1013 | + + + | Race | Unknown | + + + | Ethnic Group | Unknown | + + + Author + + + | Author | [facility] | | | and [place] | + + + | Organization | [facility] | | [...] Team Providers + +------+ + | Care Branch Credit Counselor Name | Role | Phone | + +------+ + | Landen Schaffer MD | PCP | | + +------+ + Encounter Details +--------+ + + + + | Date | Type | Department | Care Team | Description | +--------+ + + + + | 05/27/ | Hospital | [facility] | Conversion | Pain | | 2018 | Encounter | CONVERSION [address] | Transaction, | | | | | [address] | Provider Unknown | | | | | [place] | [phone] | | | | | [address] | | | | | | [phone] | | | +--------+ + + + [...] | | | | | [place] [address] | | | | | | [phone] | | | | | | | | +--------+---------+ + + + | 03/06/ | Office | Pulmonology | Tristian Foote MD | | | 2019 | Visit | | [address] | | | | | | [place] | | | | | | [address] | | | | | | | [...] + + | [place] Conversion - 11/30/2018 6:52 AM PDT This is a non-reportable procedure | | without a radiologist report and isused for image storage only | + + documented in this encounter Visit Diagnoses + + | Diagnosis | + + | Pain Generalized pain | + + documented in this encounter"
--- OUTSIDE RECORDS SUMMARY | ~2019-09-15 | XMS | Clinical Summary ---
Demographics + + + | Address | [address] | | | [place] [address] | + + + | Home Phone | | + + + | Preferred Language | Unknown | + + + | Marital Status | | + + + | Mormonism Affiliation | 1013 | + + + | Race | Unknown | + + + | Ethnic Group | Unknown | + + + Author + + + | Author | [facility] (Historical as of | | | 12-03-18) | + + + | Organization | [facility] (Historical as of | | | 12-03-18) [...] Team Providers + +------+ + | Care Radio Station Engineer Name | Role | Phone | [...] + + + + + | Tiotropium Oakes | Shortness of Breath | High | [...] Overview: Added automatically from request for surgery [id number] | + + + + + | [...] Overview: Added automatically from request for surgery [id number] | + + + + + | Other emphysema ([facility]) | 05/05/2018 | + + + | Lung disease, 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
--- OUTSIDE RECORDS SUMMARY | ~2019-09-15 | XMS | Encounter Summary ---
Demographics + + + | Address | [address] | | | [place] [address] | + + + | Home Phone | | + + + | Preferred Language | Unknown | + + + | Marital Status | | + + + | Cheondoism Affiliation | 1013 | + + + | Race | Unknown | + + + | Ethnic Group | Unknown | + + + Author + + + | Author | [facility] | | | and [place] | + + + | Organization | [facility] | | | [...] Providers + +------+ + | Care Paper Bag Making Machinist Name | Role | Phone | + +------+ + PCP | Unavailable | + +------+ + Encounter Details +--------+ + + + + | Date | Type | Department | Care Team | Description | +--------+ + + + + | 02/09/ | Hospital | [facility] | | | | 1993 | Encounter | MED CTR XRAY [address] | | | | | | [place] | | | | | | [place] [address] | | | | | | [phone] | | | +--------+ + + + [...] | | | | | [place] [address] | | | | | | [phone] | | | | | | | | +--------+---------+ + + + | 03/06/ | Office | Pulmonology | Tristian Foote MD | | | 2020 | Visit | | [address] | | | | | | [place] | | | | | | [address] | | | | | | | | +--------+---------+ + + + documented as of this encounter Visit Diagnoses Not on filedocumented in this encounter"
--- OUTSIDE RECORDS SUMMARY | ~2019-09-15 | XMS | Encounter Summary ---
Demographics + + + | Address | [address] | | | [place] [address] | + + + | Home Phone | | + + + | Preferred Language | Unknown | + + + | Marital Status | | + + + | Anglican Affiliation | 1013 | + + + | Race | Unknown | + + + | Ethnic Group | Unknown | + + + Author + + + | Author | [facility] | | | and [place] | + + + | Organization | [facility] | | | [...] Team Providers + +------+ + | Care Fertilizer Applicator Name | Role | Phone | + +------+ + | Maria Vieira | PCP | | + +------+ + Encounter Details +--------+---------+ + + + | Date | Type | Department | Care Team | Description | +--------+---------+ + + + | 08/31/ | Surgery | [facility] | Gavin Jean Baptiste MD | CV EP PPM SYSTEM | | 2019 | | [facility] | [address] | IMPLANT | | | | LAB [address] | [place] [address] | | | | | [place], [place] | [phone] | | | | | [address] | | | | | | [phone] | | | +--------+---------+ + + + [...] might be different fr om the original. [facility] Service: Medicine DISCHARGE SUMMARY Primary Care Physician: [...] Consultants: Treatment Team: Gavin Jean Baptiste MD [facility] and HOSPITAL COURSE: Mason Champion is a 63 y.o. male with past medical history significant for A. fib on warfarin and bisoprolol and COPD who presented with months long gradually worsening lighthe adedness and dizziness and found in complete heart block at a outside hospital in [facility] and was transferred for pacemaker placement. A single-chamber, MRI compatible, Sw[employer] permanent pacemaker was successfully implanted by Electrophysiology with the fo tesha provided data (taken from note of Dr Jean Baptiste): Equipment: Accolade MRI DR IS 1, model #L310, serial #[id number]. RV lead is Wadsworth Scientific INGEVITY MRI IS 1 bi-positive fix RV 59 cm, model #7842, ser ial #[id number]. Device measurements of RV is 10.9 mV, [...] tablet aka: COUMADIN Follow Up: RICHA Samuel [address] [place] [address] In 1 week Gavin Jean Baptiste MD [address] [place] [address] In 1 week The preceding was discussed [...] note. He is feeling better. Dada Briones MD MD documented in this encounter Discharge Instructions [...] may need to show your card to [facility] personnel, such as those in the [...] Theseare made by radio transmitting towers and [employer] ios. They are also made by heavy-duty electrical equipment. A running engine makes an electr ical field. Don't lean over the open conde of a running car.Most household and yard applian fredy will not cause any problems. If you use any large power tools, such as an industrial principal cloud architect, talk to your doctor. Call your doctor if you have any symptoms. These include dizziness or palpitations. What s OK Below are some of the many things that are safe to use: Microwave ovens Computers Hair dryers Power tools Radios, televisions, and CD players Electric blankets and heating pads Vacuum director of residential services Cars Follow up Plan to have periodic [...] to your healthcare provider. Date Last Reviewed: 08/18/201519995172-1184 [employer]. [address] [place] [address]. All righ ts reserved. This information is [...] prevent damage to the pacemaker while it's ty ling. Don't raise your arm on the [...] do, you may have restrictions until your melting supervisor clears you for unrestricted activity. You can [...] are those made by radio transmitting to [employer], "[employer]" radios, and heavy-duty electrical equipment. Don't lean over the open conde of a running car. A running engine creates an electrical f ield. Most household and yard appliances will not cause any problems. If you use any large p ower tools, such as an industrial principal cloud architect, talk with your doctor. Follow-up care See your melting supervisor in the next 7 to 10 days. [...] pacemaker is capable of remot e monitoring. [id number] Call 911 if you have: Chest pain [...] under the s kin Date Last Reviewed: 09/18/201519993542-4977 [employer]. [address] [place] [address], [place] [address]. All righ ts reserved. This information is [...] tablet by | 90 | 3 | / | | | tablet | mouth Daily. [...] documented as of this encounter Progress Notes Penaflor, Sharri S, RN - 09/02/2019 10:03 AM PDTDischarge education completed. All question s answered. Pt left in private vehicle with son. Liban Jasmine MD - 09/01/2019 7:07 AM PDTFormatting of th is note might be different from the original. PROGRESS NOTE for Mason Champion, male, 1955, , Room Number [facility] EP INTRA O P POOL/[facility]* On the hospitalist service. 09/01/19 PATIENT SUMMARY Mason Champion is a 63 y.o. male with past medical history significant for A. fib on warfarin and bisoprolol and COPD who presented with gradually worsening lightheadedness and dizziness and found in complete heart block at a outside hospital in [facility] and w as transferred for pacemaker placement. [...] | | | | | [place] [address] | | | | | | [phone] | | | | | | | | +--------+---------+ + + + | 03/06/ | Office | Pulmonology | Tristian Foote MD | | | 2019 | Visit | | [address] | | | | | | [place] | | | | | | [address] | | | | | | | [...] | | ventricle as above. No pneumothorax. Nuclear Medicine Technologist to honeycomb decapper the | | | depth of the [...] + | Johan [place] Results In - 09/02/2019 8:19 AM PDT [...] ventricle | | as above. No pneumothorax. Nuclear Medicine Technologist to honeycomb decapper the depth of the | | position [...] | >60Comment: GFR <60: | >60 | [facility] | | | GFR | [...] | | | | | performed at [facility], [address] | | | | | | [facility], | | | | | | [place] [address] | | | | + + + + + + + + | Specimen | + + | Blood | + + + + + + + | Performing | Address | City/State/Zipcode | Phone Number | | Organization | | | | + + + + + | [facility] | [address] | [place] [address] | [phone] | + + + + + CV EP PROCEDURE (09/01/2019 2:08 PM PDT) + + | Specimen | + + | | + + + + + | Narrative | Performed At | + + + | | | | ConclusionSuccessful implantation of single-chamber, MRI compatible, | | | Wadsworth [employer] permanent pacemaker EquipmentGenerator is ipnexus | | | Scientific Accolade MRI DR IS | | | | | | 1, model #L310, serial #[id number].RV lead is Wadsworth P[employer] INGEVITY | | | MRI IS | | | | | | 1 bi-positive fix RV 59 cm, model #7842, serial #[id number]. Device | | | measurementsRV is 10.9 [...] performed at [facility] | | | | | | [address] [facility];[place], [place] | | | | | | [address] | | | | + + + + + + + + | Specimen | + + | Blood | + + + + + + + | Performing | Address | City/State/Zipcode | Phone Number | | Organization | | | | + + + + + | [facility] | [address] | [place] [address] | [phone] | + + + + + Protime [...] performed at [facility];[address] | | | | | | [address];[place], [place] | | | | | | [address] | | | | + + + + + + + + | Specimen | + + | Blood | + + + + + + + | Performing | Address | City/State/Zipcode | Phone Number | | Organization | | | | + + + + + | [facility] | [address] | [place] [address] | [phone] | + + + + + Magnesium (09/01/2019 4:07 AM PDT) + + + + + + | Component | Value | Ref Range | Performed | Pathologist | | | | | At | Signature | + + + + + + | Magnesium | 1.8Comment: Testing | 1.7 - 2.4 mg/dL | [facility] | | | | performed at [facility];[address] | | LABORATORY | | | | [address];[place] | | | | | | [address] | | | | + + + + + + + + | Specimen | + + | Blood | + + + + + + + | Performing | Address | City/State/Zipcode | Phone Number | | Organization | | | | + + + + + | [facility] | [address] | [place] [address] | [phone] | + + + + + CBC [...] | | | Absolute | performed at [facility];[address] | [address] | LABORATORY | | | | [address];[place], [place] | | | | | | [address] | | | | + + + + + + + + | Specimen | + + | Blood | + + + + + + + | Performing | Address | City/State/Zipcode | Phone Number | | Organization | | | | + + + + + | [facility] | [address] | [place] [address] | [phone] | + + + + + Basic [...] [place];[address] | | | | | | [facility];[place], [place] | | | | | | [address] | | | | + + + + + + + + | Specimen | + + | Blood | + + + + + + + | Performing | Address | City/State/Zipcode | Phone Number | | Organization | | | | + + + + + | [facility] | [address] | [place] [address] | [phone] | + + + + + documented in this encounter Visit Diagnoses + + | Diagnosis | + + | Permanent atrial fibrillation (HCC) Atrial fibrillation | + + | Complete heart block (HCC) Atrioventricular block, complete | + + | Symptomatic bradycardia Other specified cardiac dysrhythmias | + + documented in this encounter [...] | | +---+---+ + +-------+ +--------+---+---+ | bacitracin 50,000 Units in | Given | 09/01/19 | 10 mLs | | | | sodium chloride for irrigation | | 20 1:16 | | | | | 0.9% 1,000 mL irrigation ONCE | | PM PDT | | | | | PRN, Starting 09/01/19 at | | | | | | | 1335, Intra-op | | | | | | [...] | | | | +-------+ +-------+---+ + +---+---+ | | | +---+---+ + +-------+ +--------+---+---+ | fentaNYL (PF) injection ONCE | Given | 09/01/19 | 50 mcg | | | | PRN, Starting 09/01/19 at | | 20 1:09 | | | | | 1309, Intra-op | | PM PDT | | | | + +-------+ +--------+---+---+ +-------+ +--------+---+---+ | Given | 09/01/19 | 50 mcg | | | | | 20 1:00 | | | | | | PM PDT | | | | +-------+ +--------+---+---+ + +---+ | | | + +---+ | hydrALAZINE (APRESOLINE) | | | injection 10 mg 10 mg, | | | Intravenous, EVERY 4 HOURS PRN, | | | SBP>180 not due to pain or | | | anxiety, Starting Wed09/01/19 at | | | 1613 | | + +---+ | | | + +---+ + +-------+ +--------+---+---+ | lidocaine 1% injection ONCE | Given | 09/01/19 | 10 mLs | | | | PRN, Starting Wed09/01/19 at | | 20 1:06 | | | | | 1306, Intra-op | | PM PDT | | | | + +-------+ +--------+---+---+ +---+---+ | | | +---+---+ + +-------+ +--------+---+---+ | lidocaine 1%-EPINEPHrine | Given | 09/01/19 | 10 mLs | | | | 1:100,000 injection ONCE PRN, | | 20 1:07 | | | | | Starting 09/01/19 at 1307, | | PM PDT | | | | | Intra-op | | | | | | + +-------+ +--------+---+---+ +---+---+ | | | +---+---+ + +-------+ +------+---+---+ | melatonin tablet 3 mg 3 mg, | Given | 09/01/19 | 3 mg | | | | Oral, NIGHTLY PRMarianela Mcfadden, | | 20 9:24 | | | | | Starting [facility] 08/31/19 at 2232 | | PM PDT | | | | + +-------+ +------+---+---+ +-------+ +------+---+---+ | Given | 08/31/19 | 3 mg | | | | | 20 11:26 | | | | | | PM PDT | | | | +-------+ +------+---+---+ +---+---+ | | | +---+---+ + +-------+ +------+---+---+ | midazolam (VERSED) 1 mg/mL | Given | 09/01/19 | 1 mg | | | | injection ONCE PRN, Starting Fri | | 20 1:09 | | | | | 09/01/19 at 1309, Intra-op | | PM PDT | | | | + +-------+ +------+---+---+ +-------+ +------+---+---+ | Given | 09/01/19 | 1 mg | | | | | 20 1:00 | | | | | | PM [...]
--- OUTSIDE RECORDS SUMMARY | ~2019-09-15 | XMS | Encounter Summary ---
Demographics + + + | Address | [address] | | | [place] [address] | + + + | Home Phone | | + + + | Preferred Language | Unknown | + + + | Marital Status | | + + + | Zoroastrian Affiliation | 1013 | + + + | Race | Unknown | + + + | Ethnic Group | Unknown | + + + Author + + + | Author | [facility] | | | and [place] | + + + | Organization | [facility] [...] Team Providers + +------+ + | Care Live In Caregiver Name | Role | Phone | + [...] | [address] | [address] [place], [place] | | | | | [place], [place] | [address] | | | | | [address] | | | | | | [phone] | | | +--------+ + + + [...] | | | | | [place] [address] | | | | | | [phone] | | | | | | | | +--------+---------+ + + + | 03/06/ | Office | Pulmonology | Tristian Foote MD | | | 2019 | Visit | | [address] | | | | | | [place] | | | | | | [address] | | | | | | | | +--------+---------+ + + + documented as of this encounter Visit Diagnoses Not on filedocumented in this encounter"
--- OUTSIDE RECORDS SUMMARY | ~2019-09-15 | XMS | Encounter Summary ---
Demographics + + + | Address | [address] | | | [place] [address] | + + + | Home Phone | | + + + | Preferred Language | Unknown | + + + | Marital Status | | + + + | Mu-Ism Affiliation | 1013 | + + + [...] Team Providers + +------+ + | Care Neurologist Name | Role | Phone | + +------+ + | Maria Vieira | PCP | | + +------+ + Reason for Visit +--------+ + | Reason | Comments | +--------+ + | Other | IMPLANT RECORD | +--------+ + Encounter Details +--------+ + + + + | Date | Type | Department | Care Team | Description | +--------+ + + + + | 08/31/ | Documentati | [facility] | Amadou Bandanawaf [place], | Other (IMPLANT | | 2020 | on | CARDIOLOGY [place] | Solar Project Engineer | RECORD) | | | | [address] | | | | | | [place] | | | | | | [address] | | | | | | [phone] | | | +--------+ + + + [...] documented as of this encounter Progress Notes Gina Banda, Solar Project Engineer - 09/01/2019 11:59 PM PDTIMPLANT RECORDElectronically si gned by Gina Banda Solar Project Engineer at 09/04/2019 9:26 AM PDTdocumented in this encou nter Plan of Treatment +--------+---------+ + + + | Date | Type | Specialty | Care Team | Description | +--------+---------+ + + + | 01/17/ | Office | Cardiology | Sarai Arce | | | 2019 | Visit | | JUSTA Wang [address] | [address] | | | | | | [place] [address] | | | | | | [phone] | | | | | | | | +--------+---------+ + + + | 03/06/ | Office | Pulmonology | Tristian Foote MD | | | 2020 | Visit | | [address] | | | | | | [place] | | | | | | [address] | | | | | | | | +--------+---------+ + + + documented as of this encounter Visit Diagnoses Not on filedocumented in this encounter"
--- OUTSIDE RECORDS SUMMARY | ~2019-09-15 | XMS | Encounter Summary ---
Demographics + + + | Address | [address] | | | [place] [address] | + + + | Home Phone | | + + + | Preferred Language | Unknown | + + + | Marital Status | | + + + | Mandaen Affiliation | 1013 | + + + | Race | Unknown | + + + | Ethnic Group | Unknown | + + + Author + + + | Author | [facility] | | | and [place] | + + + | Organization | [facility] | | | [...] Team Providers + +------+ + | Care Boatbuilder Supervisor Name | Role | Phone | + +------+ + | Maria Vieira | PCP | | + +------+ + Encounter Details +--------+---------+ + + + | Date | Type | Department | Care Team | Description | +--------+---------+ + + + | 08/31/ | Surgery | [facility] | Gavin Jean Baptiste MD | CV EP PPM SYSTEM | | 2019 | | [facility] | [address] | IMPLANT | | | | LAB [address] | [place] [address] | | | | | [place], [place] | [phone] | | | | | [address] | | | | | | [phone] | | | +--------+---------+ + + + [...] Consultants: Treatment Team: Gavin Jean Baptiste MD [facility] and HOSPITAL COURSE: Mason Champion is a 63 y.o. male with past medical history significant for A. fib on warfarin and bisoprolol and COPD who presented with months long gradually worsening lighthe adedness and dizziness and found in complete heart block at a outside hospital in [facility] and was transferred for pacemaker placement. A single-chamber, MRI compatible, [employer] n Scientific permanent pacemaker was successfully implanted by Electrophysiology with the fo tesha provided data (taken from note of Dr Jean Baptiste): Equipment: Accolade MRI DR IS 1, model #L310, serial #[id number]. RV lead is Worth Scientific INGEVITY MRI IS 1 bi-positive fix RV 59 cm, model #7842, ser ial #[id number]. Device measurements of RV is 10.9 mV, [...] tablet aka: COUMADIN Follow Up: RICHA Samuel [address] [place] [address] In 1 week Gavin Jean Baptiste MD [address] [place] [address] In 1 week The preceding was discussed [...] may need to show your card to [facility] personnel, such as those in [...] Theseare made by radio transmitting towers and [employer] ios. They are also made by heavy-duty electrical equipment. A running engine makes an electr ical field. Don't lean over the open conde of a running car.Most household and yard applian fredy will not cause any problems. If you use any large power tools, such as an industrial core microarchitect, talk to your doctor. Call your doctor if you have any symptoms. These include dizziness or palpitations. What s OK Below are some of the many things that are safe to use: Microwave ovens Computers Hair dryers Power tools Radios, televisions, and CD players Electric blankets and heating pads Vacuum rfp writer Cars Follow up Plan to have periodic [...] to your healthcare provider. Date Last Reviewed: 08/18/201519994716-4063 The [employer]. [address] [place] [address]. All righ ts reserved. This information is [...] do, you may have restrictions until your director news clears you for unrestricted activity. You can [...] are those made by radio transmitting to [employer], "[employer]" radios, and heavy-duty electrical equipment. Don't lean over the open conde of a running car. A running engine creates an electrical f ield. Most household and yard appliances will not cause any problems. If you use any large p ower tools, such as an industrial core microarchitect, talk with your doctor. Follow-up care See your director news in the next 7 to 10 days. [...] pacemaker is capable of remot e monitoring. [id number] Call 911 if you have: Chest pain [...] under the s kin Date Last Reviewed: 09/18/201519999640-2954 The [employer]. [address] [place] [address], [place] [address]. All righ ts reserved. This information is [...] Mason Champion, male, 1955, , Room Number [facility] EP INTRA O P POOL/[facility]* On the hospitalist service. 09/01/19 PATIENT SUMMARY Mason Champion is a 63 y.o. male with past medical history significant for A. fib on warfarin and bisoprolol and COPD who presented with gradually worsening lightheadedness and dizziness and found in complete heart block at a outside hospital in [facility] and w as transferred for pacemaker placement. [...] placement. Possible dischar ge plan tomorrow. Dada Birones MD, John Hartman RN - 09/01/2019 6:03 [...] | | | | | [address] | | | | | | [place] [address] | | | | | | [phone] | | | | | | | | +--------+---------+ + + + | 03/06/ | Office | Pulmonology | Tristian Foote MD | | | 2019 | Visit | | [address] | | | | | | [place] | | | | | | [address] | | | | | | | [...] | | ventricle as above. No pneumothorax. General Sales Manager to canvas cutter hand the | | | depth of the [...] ventricle | | as above. No pneumothorax. General Sales Manager to canvas cutter hand the depth of the | | position [...] | >60Comment: GFR <60: | >60 | [facility] | | | GFR | CHRONIC KIDNEY [...] | | | | | performed at [facility], [address] | | | | | | [facility], | | | | | | [place] [address] | | | | + + + + + + + + | Specimen | + + | Blood | + + + + + + + | Performing | Address | City/State/Zipcode | Phone Number | | Organization | | | | + + + + + | [facility] | [address] | [place] [address] | [phone] | + + + + + CV EP PROCEDURE (09/01/2019 2:08 PM PDT) + + | Specimen | + + | | + + + + + | Narrative | Performed At | + + + | | | | ConclusionSuccessful implantation of single-chamber, MRI compatible, | | | Worth [employer] permanent pacemaker EquipmentGenerator is Stevie | | | Scientific Accolade MRI DR IS | | | | | | 1, model #L310, serial #[id number].RV lead is Worth [employer] INGEVITY | | | MRI IS | | | | | | 1 bi-positive fix RV 59 cm, model #7842, serial #[id number]. Device | | | measurementsRV is 10.9 [...] | | | | | performed at [facility] | | | | | | [address] [facility];[place], [place] | | | | | | [address] | | | | + + + + + + + + | Specimen | + + | Blood | + + + + + + + | Performing | Address | City/State/Zipcode | Phone Number | | Organization | | | | + + + + + | [facility] | [address] | [place] [address] | [phone] | + + + + + Protime [...] | | | | | performed at [facility];[address] | | | | | | [address];[place], [place] | | | | | | [address] | | | | + + + + + + + + | Specimen | + + | Blood | + + + + + + + | Performing | Address | City/State/Zipcode | Phone Number | | Organization | | | | + + + + + | [facility] | [address] | [place] [address] | [phone] | + + + + + Magnesium (09/01/2019 4:07 AM PDT) + + + + + + | Component | Value | Ref Range | Performed | Pathologist | | | | | At | Signature | + + + + + + | Magnesium | 1.8Comment: Testing | 1.7 - 2.4 mg/dL | [facility] | | | | performed at [facility];[address] | | LABORATORY | | | | [address];[place] | | | | | | [address] | | | | + + + + + + + + | Specimen | + + | Blood | + + + + + + + | Performing | Address | City/State/Zipcode | Phone Number | | Organization | | | | + + + + + | [facility] | [address] | [place] [address] | [phone] | + + + + + CBC [...] | | | Absolute | performed at [facility];[address] | [address] | LABORATORY | | | | [address];[place], [place] | | | | | | [address] | | | | + + + + + + + + | Specimen | + + | Blood | + + + + + + + | Performing | Address | City/State/Zipcode | Phone Number | | Organization | | | | + + + + + | [facility] | [address] | [place] [address] | [phone] | + + + + + Basic [...] | | | | | performed at [facility];[address] | | | | | | [facility];[place], [place] | | | | | | [address] | | | | + + + + + + + + | Specimen | + + | Blood | + + + + + + + | Performing | Address | City/State/Zipcode | Phone Number | | Organization | | | | + + + + + | [facility] | [address] | [place] [address] | [phone] | + + + + + documented [...] 9:24 | | | | | Starting [facility] 08/31/19 at 2232 | | PM PDT [...]
--- OUTSIDE RECORDS SUMMARY | ~2019-09-15 | XMS | Encounter Summary ---
Demographics + + + | Address | [address] | | | [place] [address] | + + + | Home Phone [...] + | Author | [facility] | | | and [place] | + + + | Organization | [facility] | | [...] Team Providers + +------+ + | Care Prepress Technician Name | Role | Phone | + +------+ + | Maria Vieira | PCP | | + +------+ + Encounter Details +--------+ + + + + | Date | Type | Department | Care Team | Description | +--------+ + + + + | 08/30/ | Hospital | [facility] | Deangelo Jamil DO | Permanent atrial | | 2019 - | Encounter | [facility] | [address] | fibrillation (HCC) | | | | [address] | [place] [address] | (Primary Dx); | | 09/01/ | | [place], [place] | [phone] | Complete heart block | | 2020 | | [address] | | (HCC); Symptomatic | | | | [phone] | Dada Briones MD | bradycardia | | | | | [address] | | | | | | [place] [address] | | | | | | [phone] | | | | | | | [...] might be different fr om the original. [facility] Service: Medicine DISCHARGE SUMMARY Primary Care Physician: [...] Consultants: Treatment Team: Gavin Jean Baptiste MD [facility] and HOSPITAL COURSE: Mason Champion is a 63 y.o. male with past medical history significant for A. fib on warfarin and bisoprolol and COPD who presented with months long gradually worsening lighthe adedness and dizziness and found in complete heart block at a outside hospital in [facility] and was transferred for pacemaker placement. A single-chamber, MRI compatible, [employer] permanent pacemaker was successfully implanted by Electrophysiology with the fo yonyg provided data (taken from note of Dr Jean Baptiste): Equipment: Car[employer] MRI DR IS 1, model #L310, serial #[id number]. RV lead is Retail ConvergenceEVITY MRI IS 1 bi-positive fix RV 59 cm, model #7842, ser ial #[id number]. Device measurements of RV is 10.9 mV, [...] tablet aka: COUMADIN Follow Up: RICHA Samuel [address] [place] [address] In 1 week Gavin Jean Baptiste MD [address] [place] [id number] In 1 week The preceding was discussed [...] may need to show your card to [facility] personnel, such as those in the airport [...] Theseare made by radio transmitting towers and Kihons. They are also made by heavy-duty electrical equipment. A running engine makes an electr ical field. Don't lean over the open conde of a running car.Most household and yard applian fredy will not cause any problems. If you use any large power tools, such as an industrial it integration architect, talk to your doctor. Call your doctor if you have any symptoms. These include dizziness or palpitations. What s OK Below are some of the many things that are safe to use: Microwave ovens Computers Hair dryers Power tools Radios, televisions, and CD players Electric blankets and heating pads Vacuum in flight refueling system repairer Cars Follow up Plan to have periodic [...] to your healthcare provider. Date Last Reviewed: 08/18/201519997254-7526 [employer] [address] [place] [address], [place] [address]. All righ ts reserved. This information is [...] do, you may have restrictions until your supportive employment case manager clears you for unrestricted activity. You can [...] those made by radio transmitting to wers, "MunchAway" radios, and heavy-duty electrical equipment. Don't lean over the open conde of a running car. A running engine creates an electrical f ield. Most household and yard appliances will not cause any problems. If you use any large p ower tools, such as an industrial it integration architect, talk with your doctor. Follow-up care See your supportive employment case manager in the next 7 to 10 days. [...] pacemaker is capable of remot e monitoring. [id number] Call 911 if you have: Chest pain [...] under the s kin Date Last Reviewed: 09/18/201519991984-4601 [employer] [address] [place] [address]. All righ ts reserved. This information is [...] Mason Champion, male, 1955, , Room Number [facility]* On the hospitalist service. 09/01/19 PATIENT SUMMARY Mason Champion is a 63 y.o. male with past medical history significant for A. fib on warfarin and bisoprolol and COPD who presented with gradually worsening lightheadedness and dizziness and found in complete heart block at a outside hospital in [facility] and w as transferred for pacemaker [...] | | | | | [place] [address] | | | | | | [phone] | | | | | | | | +--------+---------+ + + + | 03/06/ | Office | Pulmonology | Tristian Foote MD | | 2019 | Visit | | [address] | | | | | | [place] | | | | | | [address] | | | | | | | [...] | | ventricle as above. No pneumothorax. Histopathologist to rn surgery icu the | | | depth of the [...] ventricle | | as above. No pneumothorax. Histopathologist to rn surgery icu the depth of the | | position [...] | >60Comment: GFR <60: | >60 | [facility] | | | GFR | CHRONIC KIDNEY [...] | | | | | | MDRD [facility] traceable | | | | | | equation.Testing | | | | | | performed at [facility], [address] | | | | | | [facility], | | | | | | [place] [address] | | | | + + + + + + + + | Specimen | + + | Blood | + + + + + + + | Performing | Address | City/State/[facility] | Phone Number | | Organization | | | | + + + + + | [facility] | [address] | [place] [address] | [phone] | + + + + + CV EP PROCEDURE (09/01/2019 2:08 PM PDT) + + | Specimen | + + | | + + + + + | Narrative | Performed At | + + + | | | | ConclusionSuccessful implantation of single-chamber, MRI compatible, | | | [employer] Scientific permanent pacemaker EquipmentGenerator is [place] | | | Scientific Accolade MRI DR IS | | | | | | 1, model #L310, serial #[id number].RV lead is Pure life renal INGEVITY | | | MRI IS | | | | | | 1 bi-positive fix RV 59 cm, model #7842, serial #[id number]. Device | | | measurementsRV is 10.9 [...] | | | | | performed at [facility];[address] | | | | | [address];[place] | | | | | | [address] | | | | + + + + + + + + | Specimen | + + | Blood | + + + + + + + | Performing | Address | City/State/Zipcode | Phone Number | | Organization | | | | + + + + + | [facility] | [address] | [place] [address] | [phone] | + + + + + Protime [...] | | | | | performed at [facility] | | | | | | [facility] [place], [place] | | | | | | [address] | | | | + + + + + + + + | Specimen | + + | Blood | + + + + + + + | Performing | Address | City/State/Zipcode | Phone Number | | Organization | | | | + + + + + | [facility] | [address] | [place] [address] | [phone] | + + + + + Magnesium (09/01/2019 4:07 AM PDT) + + + + + + | Component | Value | Ref Range | Performed | Pathologist | | | | | At | Signature | + + + + + + | Magnesium | 1.8Comment: Testing | 1.7 - 2.4 mg/dL | [facility] | | | | performed at [facility];[address] | | LABORATORY | | | | [address];[place] | | | | | | [address] | | | | + + + + + + + + | Specimen | + + | Blood | + + + + + + + | Performing | Address | City/State/Zipcode | Phone Number | | Organization | | | | + + + + + | [facility] | [address] | [place] [address] | [phone] | + + + + + CBC [...] | | | Absolute | performed at [facility];[address] | [address] | LABORATORY | | | | [address];[place], [place] | | | | | | [address] | | | | + + + + + + + + | Specimen | + + | Blood | + + + + + + + | Performing | Address | City/State/Zipcode | Phone Number | | Organization | | | | + + + + + | [facility] | [address] | [place] [address] | [phone] | + + + + + Basic [...] | >60Comment: GFR <60: | >60 | [facility] | | | GFR | CHRONIC KIDNEY [...] | | | | | | MDRD [facility] traceable | | | | | | equation.Testing | | | | | | performed at [facility] | | | | | | [facility] [place], [place] | | | | | | [address] | | | | + + + + + + + + | Specimen | + + | Blood | + + + + + + + | Performing | Address | City/State/Zipcode | Phone Number | | Organization | | | | + + + + + | [facility] | [address] | [place] [address] | [phone] | + + + + + documented [...] 9:24 | | | | | Starting [facility] 08/31/19 at 2232 | | PM [...]
--- OUTSIDE RECORDS SUMMARY | ~2019-09-15 | XMS | Encounter Summary ---
Demographics + + + | Address | [address] | | | [place] [address] | + + + | Home Phone [...] Team Providers + +------+ + | Care Undercover Cop Name | Role | Phone | + [...] + | 08/28/ | Telephone | [facility] | Tristian Foote MD | Other (CT Scan) | | 2020 | | PULMONOLOGY [address] | | | | | [address] | [place], [place] | | | | | [place], [place] | [address] | | | | | [address] | | | | | | [phone] | | | +--------+ + + + [...] [address] | | | | | | [place] [address] | | | | | | [phone] | | | | | | | | +--------+---------+ + + + | 03/06/ | Office | Pulmonology | Tristian Foote MD | | | 2019 | Visit | | [address] | | | | | | [place] | | | | | | [address] | | | | | | | | +--------+---------+ + + + documented as of this encounter Visit Diagnoses Not on filedocumented in this encounter"
--- OUTSIDE RECORDS SUMMARY | ~2019-09-15 | XMS | Encounter Summary ---
Demographics + + + | Address | [address] | | | [place] [address] | + + + | Home Phone | | + + + | Preferred Language | Unknown | + + + | Marital Status | | + + + | Yazidism Affiliation | 1013 | + + + | Race | Unknown | + + + | Ethnic Group | Unknown | + + + Author + + + | Author | [facility] | | | and [place] | + + + | Organization | [facility] | | [...] Team Providers + +------+ + | Care Router Machine Operator Name | Role | Phone | + +------+ + | Landen Schaffer MD | PCP | | + +------+ + Encounter Details +--------+ + + + + | Date | Type | Department | Care Team | Description | +--------+ + + + + | 05/23/ | Hospital | [facility] | Samson Limon MD | Lung bullae (HCC) | | 2019 - | Encounter | [facility] | [address] | | | | | [address] | [place], [place] | | | 05/24/ | | [place], [place] | [address] | | | 2018 | | [address] | | | | | | [phone] | | | +--------+ + + + [...] and Vascular Surgery Author Ty pe: Physician Heel Sprayer - Certified Filed: 05/24/18 0841 Date of Service: 05/24/1851 Status: Signed Futures Trader: Ernst Victoria PA-C (Physician Heel Sprayer - Certified) Cosigner: Samson Limon MD at 05/24/18 0885 Service: Cardiothoracic Surgery Discharge Summary Pt: Mason [...] ARTHROSCOPY Allergies Allergen Reactions Spiriva Handihaler [Tiotropium [place] Monohydrate] Shortness of Breath Prescriptions Prior to [...] 11/21/18 Follow up: Samson Limon MD [address] [id number] Schedule an appointment as soon as possible for a visit on 06/07/2018 Post-Op Maria Vieira PA-C [address] [place] [address] Schedule an appointment as [...] medications were sent to [facility] [place], [place] - [place] [address] [address], [place] [address] [facility], [address] [address] acetaminophen 500 MG tablet gabapentin 300 MG [...] Date of Service: 05/24/18 1302 Status: Signed Futures Trader: Shara Bauer RN (Registered Nurse) Discharge information including new medications, follow up appointments and incision care d iscussed with patient. Pt stated understanding of all teaching. IVs and telemetry discontinu ed. Pt refused wheelchair escort. VSS. Pt going home with family. Shara Bauer RN 05/24/18 onver lissa Transaction, Provider Unknown - 05/24/2018 9:25 AM PST Case Management by JACKSON Greene at 05/24/18924 Author: JACKSON Greene Service: (none) Author Type: Demolition Expert Filed: 05/24/18 1116 Date of Service: 05/24/18924 Status: Addendum Futures Trader: JACKSON Greene (Demolition Expert) Related Notes: Original Note by JACKSON Greene (Demolition Expert) filed at 05/24/18 0934 05/24/18 09 Discharge [...] No Prescription Plan Yes Name of Pharmacy ([facility]) Anticipated Disposition Facility Type Home Medicare Important Message (DOM) Given (DOM given on 05/23/18) WIRE COILER MACHINE OPERATOR met with Pt and discussed discharge [...] PCP is: Maria Vieira Patient's insurance: Medicare [employer] Coverage concerns: none at this time Medication coverage/concerns: Pt [facility]. Pt consented for Rx Pharmacy for bedside delivery with Too Victoria PA-C. WIRE COILER MACHINE OPERATOR fo llowed up with Pt received discharge medications for Rx Pharmacy bedside delivery. Community resources utilized / needed: None requested at this time. Assistance in transportation: Pt friend (Refugio) will be coming Identification of any specific education / training: None Barriers to Discharge / Alternative housing needed: None Anticipated DCP: Home CARY IZQUIERDO Demolition Expert [phone] cell Ernst España PA - 05/24/2018 8:24 AM PST Progress Notes by Ernst Victoria PA-C at 05/24/18 08 Author: Ernst Victoria PA-C Service: Cardiac, Thoracic, and Vascular Surgery Author Ty pe: Physician Heel Sprayer - Certified Filed: 05/24/18828 Date of Service: 05/24/18823 Status: Attested Futures Trader: Ernst Victoria PA-C (Physician Heel Sprayer - Certified) Cosigner: Samson Limon MD at 05/24/18 1343 Attestation signed by Samson Limon MD at 05/24/18 134 Patient was seen, examined, labs, x-rays, treatment plan reviewed. [facility] Service: Cardiothoracic Surgery Progress Note ROOM: 9103/9103-1 [...] tablet by mouth daily. 05/05/18 05/05/19 Yes Sarai RaiEDINSON ashton budesonide-formoterol (SYMBICORT) 160-4.5 MCG/ACT inhaler Inhale 2 [...] hours. No results for input(s): PHART, PO2ART, SBI0OZS, P2KZXIXX, BEART in the last 168 hours. Recent [...] Service: (none) Author Type: Registered Nurse Filed: 05/24/18650 Date of Service: 05/24/18643 Status: Signed Futures Trader: Cary Andre RN (Registered Nurse) Pt had [...] Service: (none) Author Type: Registered Nurse Filed: 05/23/181840 Date of Service: 05/23/181827 Status: Signed Futures Trader: Ines Fish RN (Registered Nurse) Dressing c/d/I with minimal sanguanous drainage noted in tube. Per verbal order from Dr. Won morris pt was put on water seal. Chart Check complete. Ines Fish Rn onver lissa Transaction, Provider Unknown - 05/23/2018 12:24 PM PST Pharmacy Note by Kirstin Pollack RPH at 05/23/182 Author: Kirstin Pollack RPH Service: Pharmacy Author Type: Pharmacist Filed: 05/23/181223 Date of Service: 05/23/181223 Status: Signed Futures Trader: Kirstin Pollack RPH (Pharmacist) Clinical Pharmacy Note: [...] and adjust as clinically indicated. Kirstin Pollack PharmD 05/23/2018 12:24 PM docume nted in this [...] [address] | | | | | | [place] [address] | | | | | | [phone] | | | | | | | | +--------+---------+ + + + | 03/06/ | Office | Pulmonology | Tristian Foote MD | | | 2019 | Visit | | [address] | | | | | | [place] | | | | | | [address] | | | | | | | [...] | EXTERNAL LAB: CBC | Routin | 05/24/2018 | | Results [...] | EXTERNAL LAB: CBC | Routin | 05/23/2018 | | Results [...] 5:54 AM | + + External Lab: CBC (05/24/2018 3:59 AM PST) + + + [...] | | | Basophils | performed at [facility], [address] | [address] | LAB | | | | [address], | | | | | | [place] [address] | | | | + + + [...] EXTERNAL | | | | performed at [facility], [address] | | LAB | | | | [address], | | | | | | [place] [address] | | | | + + + [...] | | | | | performed at [facility], [address] | | | | | | [facility], | | | | | | [place] [address] | | | | + + + [...] | | | | | performed at [facility] | | | | | | [address];[place], [place] | | | | | | [address] | | | | + + + [...] EXTERNAL | | | | performed at [facility];[address] | | LAB | | | | [facility] [facility];[place], [place] | | | | | | [address] | | | | + + + [...] | | | | | performed at [facility];[address] | | | | | | [facility];[place], [place] | | | | | | [address] | | | | + + + [...] | | parenchyma is pink and spongy. Talent Acquisition Consultant sections are | | | submitted in [...] component was | | | performed by [facility], [address] [place] [address] | | | (Case Repairer: Maranda Brown MD; IA# [id number]). | | | Professional interpretation was performed by [facility], | | | [facility], [address] [facility] [facility] [place], [place] | | | [address]. Diagnostician: Danny Delaney MD Pathologist | | [...] | | | | | performed at [facility];[address] | | | | | | [address] [facility];[place], [place] | | | | | | [address] | | | | + + + [...] + + + | BB BAND | [id number] | | EXTERNAL | | | | performed at [facility];[address] | | LAB | | | | [address];[place], [place] | | | | | | [address] | | | | + + + [...]
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
--- OUTSIDE RECORDS SUMMARY | ~2019-09-15 | XMS | Encounter Summary ---
Demographics + + + | Address | [address] | | | [place] [address] | + + + | Home Phone | | + + + | Preferred Language | Unknown | + + + | Marital Status | | + + + | Orthodoxy Affiliation | 1013 | + + + | Race | Unknown | + + + | Ethnic Group | Unknown | + + + Author + + + | Author | [facility] | | | and [place] | + + + | Organization | [facility] | | | [...] Team Providers + +------+ + | Care Shelter Advocate Name | Role | Phone | + [...] + + | 08/28/ | Telephone | [facility] | Tristian Foote MD | Other (CT Scan) | | 2020 | | PULMONOLOGY [address] | | | | | [address] | [place], [place] | | | | | [place], [place] | [address] | | | | | [address] | | | | | | [phone] | | | +--------+ + + + [...] | | | | [place] [address] | | | | | | [phone] | | | | | | | | +--------+---------+ + + + | 03/06/ | Office | Pulmonology | Tristian Foote MD | | | 2019 | Visit | | [address] | | | | | | [place] | | | | | | [address] | | | | | | | | +--------+---------+ + + + documented as of this encounter Visit Diagnoses Not on filedocumented in this encounter"
--- OUTSIDE RECORDS SUMMARY | ~2019-09-15 | XMS | Encounter Summary ---
Demographics + + + | Address | [address] | | | [place] [address] | + + + | Home Phone [...] | [facility] | | | and [place] | + [...] Team Providers + +------+ + | Care Spot Sprayer Name | Role | Phone | + +------+ + | Landen Schaffer MD | PCP | | + +------+ + Encounter Details +--------+ + + + + | Date | Type | Department | Care Team | Description | +--------+ + + + + | 09/21/ | [facility] | [facility] | Cholo Sullivan | Encounter for | | 2019 | Encounter | [facility] MAIN[facility] Vera MD [address] | removal of biliary | | | | INTRA OP [address] | [place] [address] | stent | | | | [address] [place], [place] | [phone] | | | | | [address] | | | | | | [phone] | | | +--------+ + + + [...] 09/21/18722 Date of Service: 09/21/18721 Status: Signed Waste Examiner: Cholo Sullivan MD (Physician) [facility] Service: Gastroenterology Brief Post-op Discharge Note DISCHARGE [...] Your Medications These medications were sent to [facility] [place], [place] - [address] [facility] [address] omeprazole 20 MG capsule Cholo Sullivan MD [...] | 01/17/ | Office | Cardiology | LeonardoguevaraSarai | | | 2019 | Visit | | JUSTA Wang [address] | | | | | | [address] | | | | | | [place] [address] | | | | | | [phone] | | | | | | | | +--------+---------+ + + + | 03/06/ | Office | Pulmonology | Tristian Foote MD | | | 2019 | Visit | | [address] | | | | | | [place] | | | | | | [address] | | | | | | | [...] + + | Historically converted procedure from [facility] environment | EXTERNAL LAB | | [facility] GI | | | | | | Patient Name: Mason Champion Vishnu Procedure Date: | | | 09/21/2018 6:59 [...] | | | | | | Cholo Chuy | | | Laurie, 09/21/2018 7:22:11 AM This report has been signed | | | electronically. Note Initiated On: 09/21/2018 6:59 AM Number of | | | Addenda: 0 [facility] - Endoscopy | | | Services | | + + + + +---------+ + + | Performing | Address | City/State[facility] | Phone Number | | Organization | | | | + +---------+ + + | EXTERNAL LAB | | | | + +---------+ + + documented in this encounter Visit Diagnoses + + | Diagnosis | + + | Encounter for removal of biliary stent | + + documented in this encounter
--- OUTSIDE RECORDS SUMMARY | ~2019-09-15 | XMS | Encounter Summary ---
Demographics + + + | Address | [address] | | | [place] [address] | + + + | Home Phone [...] Team Providers + +------+ + | Care Refuse Laborer Name | Role | Phone | + +------+ + | Landen Schaffer MD | PCP | | + +------+ + Encounter Details +--------+ + + + + | Date | Type | Department | Care Team | Description | +--------+ + + + + | 02/22/ | Hospital | [facility] | Conversion | Pain | | 2018 | Encounter | CONVERSION DEP [address] | Transaction, | | | | | [address] | Provider Unknown | | | | | [place] | [phone] | | | | | [address] | | | | | | [phone] | | | +--------+ + + + [...] | | | | | [place] [address] | | | | | | [phone] | | | | | | | | +--------+---------+ + + + | 03/06/ | Office | Pulmonology | Tristian Foote MD | | | 2019 | Visit | | [address] | | | | | | [place] | | | | | | [address] | | | | | | | [...]
--- OUTSIDE RECORDS SUMMARY | ~2019-09-15 | XMS | Encounter Summary ---
Demographics + + + | Address | [address] | | | [place] [address] | + + + | Home Phone | | + + + | Preferred Language | Unknown | + + + | Marital Status | | + + + | Presybeterian Affiliation | 1013 | + + + [...] Team Providers + +------+ + | Care Watchmaking Teacher Name | Role | Phone | + +------+ + | Landen Schaffer MD | PCP | | + +------+ + Encounter Details +--------+ + + + + | Date | Type | Department | Care Team | Description | +--------+ + + + + | 05/23/ | Hospital | [facility] | Samson Limon MD | Lung bullae (HCC) | | 2019 - | Encounter | [facility] | [address] | | | | | [address] | [place], [place] | | | 05/24/ | | [place], [place] | [address] | | | 2018 | | [address] | | | | | | [phone] | | | +--------+ + + + [...] and Vascular Surgery Author Ty pe: Physician Water Supply Technician - Certified Filed: 05/24/18 0841 Date of Service: 05/24/1824 Status: Signed Bench Boring Machine Operator: Ernst Victoria PA-C (Physician Water Supply Technician - Certified) Cosigner: Samson Limon MD at 05/24/18 6294 Service: Cardiothoracic Surgery Discharge Summary Pt: Mason [...] ARTHROSCOPY Allergies Allergen Reactions Spiriva Handihaler [Tiotropium [place] Monohydrate] Shortness of Breath Prescriptions Prior to [...] 11/21/18 Follow up: Samson Limon MD [address] [phone] Schedule an appointment as soon as possible for a visit on 06/07/2018 Post-Op Maria Vieira PA-C [address] [facility] [place] [address] Schedule an appointment [...] medications were sent to [facility] [place] [address] [address], [place] [address] [employer], [address] [address] acetaminophen 500 MG tablet gabapentin 300 MG [...] Date of Service: 05/24/18 1302 Status: Signed Bench Boring Machine Operator: Shara Bauer RN (Registered Nurse) Discharge information [...] Author: JACKSON Greene Service: (none) Author Type: Campground Attendant Filed: 05/24/18 1116 Date of Service: 05/24/18924 Status: Addendum Bench Boring Machine Operator: JACKSON Greene (Campground Attendant) Related Notes: Original Note by JACKSON Greene (Campground Attendant) filed at 05/24/18 0934 05/24/18 09 Discharge [...] No Prescription Plan Yes Name of Pharmacy ([facility]) Anticipated Disposition Facility Type Home Medicare Important Message (DOM) Given (DOM given on 05/23/18) ROUTE CARRIER met with Pt and discussed discharge planning, [...] PCP is: Maria Vieira Patient's insurance: Medicare [employer] Coverage concerns: none at this time Medication coverage/concerns: Pt [facility] medications. Pt consented for Rx Pharmacy for bedside delivery with Too Victoria PA-C. ROUTE CARRIER fo llowed up with Pt received discharge medications for Rx Pharmacy bedside delivery. Community resources utilized / needed: None requested at this time. Assistance in transportation: Pt friend (Refugio) will be coming Identification of any specific education / training: None Barriers to Discharge / Alternative housing needed: None Anticipated DCP: Home CARY IZQUIERDO Campground Attendant [phone] cell Ernst España PA - 05/24/2018 8:24 AM PST Progress Notes by Ernst Victoria PA-C at 05/24/18 08 Author: Ernst Victoria PA-C Service: Cardiac, Thoracic, and Vascular Surgery Author Ty pe: Physician Water Supply Technician - Certified Filed: 05/24/18828 Date of Service: 05/24/18823 Status: Attested Bench Boring Machine Operator: Ernst Victoria PA-C (Physician Water Supply Technician - Certified) Cosigner: Samson Limon MD at 05/24/18 1343 Attestation signed by Samson Limon MD at 05/24/18 134 Patient was seen, examined, labs, x-rays, treatment plan reviewed. [facility] Service: Cardiothoracic Surgery Progress Note ROOM: [...] hours. No results for input(s): PHART, PO2ART, MZC0GDZ, F6GGTAZZ, BEART in the last 168 hours. Recent [...] 05/24/18650 Date of Service: 05/24/18643 Status: Signed Bench Boring Machine Operator: Cary Andre RN (Registered Nurse) Pt had [...] 05/23/181840 Date of Service: 05/23/181827 Status: Signed Bench Boring Machine Operator: Ines Fish RN (Registered Nurse) Dressing c/d/I [...] 05/23/181223 Date of Service: 05/23/181223 Status: Signed Bench Boring Machine Operator: Kirstin Pollack RPH (Pharmacist) Clinical Pharmacy Note: [...] [address] | | | | | | [place] [address] | | | | | | [phone] | | | | | | | | +--------+---------+ + + + | 03/06/ | Office | Pulmonology | Tristian Foote MD | | | 2019 | Visit | | [address] | | | | | | [place] | | | | | | [address] | | | | | | | [...] | | Basophils | performed at [facility], [address] | [address] | LAB | | | | [address], | | | | | | [place] [address] | | | | + + + [...] EXTERNAL | | | | performed at [facility], [address] | | LAB | | | | [address], | | | | | | [place] [address] | | | | + + + [...] | | | | performed at [facility], [address] | | | | | | [facility], | | | | | | [place] [address] | | | | + + + [...] | | | | | performed at [facility] | | | | | | [address];[place], [place] | | | | | | [address] | | | | + + + [...] EXTERNAL | | | | performed at [facility];[address] | | LAB | | | | [facility];[place], [place] | | | | | | [address] | | | | + + + [...] | | | | | performed at [facility];[address] | | | | | | [facility];[place], [place] | | | | | | [address] | | | | + + + [...] | | parenchyma is pink and spongy. Supervisor Fishing sections are | | | submitted in [...] component was | | | performed by [facility], [address] [place] [address] | | | (Gasoline Attendant: Maranda Brown MD; IA# [id number]). | | | Professional interpretation was performed by [facility], | | | [facility], [address] [facility] [facility] [place], [place] | | | [address]. Diagnostician: Danny Delaney MD Pathologist | | [...] | | | | | performed at [facility];[address] | | | | | | [facility];[place], [place] | | | | | | [address] | | | | + + + [...] + + + | BB BAND | [id number] | | EXTERNAL | | | | performed at [facility];[address] | | LAB | | | | [address];[place], [place] | | | | | | [address] | | | | + + + [...]
--- OUTSIDE RECORDS SUMMARY | ~2019-09-15 | XMS | Encounter Summary ---
Demographics + + + | Address | [address] | | | [place] [address] | + + + | Home Phone [...] Team Providers + +------+ + | Care Folding Rules Printing Machine Operator Name | Role | Phone [...] + + | 12/16/ | Telephone | [facility] | Michele Motta MD | Chest Pain Follow-up | | 2019 | | GENERAL SURGERY [address] | [address] [place] | | | | | [address] | [address] [place], [place] | | | | | [place], [place] | [address] | | | | | [address] | | | | | | [phone] | | | +--------+ + + + [...] [address] | | | | | | [place] [address] | | | | | | [phone] | | | | | | | | +--------+---------+ + + + | 11/18/ | Office | Pulmonology | Tristian Foote MD | | | 2019 | Visit | | [address] | | | | | | [place] | | | | | | [address] | | | | | | | | +--------+---------+ + + + documented as of this encounter Visit Diagnoses Not on filedocumented in this encounter"
--- OUTSIDE RECORDS SUMMARY | ~2019-09-15 | XMS | Encounter Summary ---
Demographics + + + | Address | [address] | | | [place] [address] | + + + | Home Phone | | + + + | Preferred Language | Unknown | + + + | Marital Status | | + + + | Jew Affiliation | 1013 | + + + [...] Team Providers + +------+ + | Care Unhairer Name | Role | Phone | + +------+ + | Landen Schaffer MD | PCP | | + +------+ + Encounter Details +--------+ + + + + | Date | Type | Department | Care Team | Description | +--------+ + + + + | 05/10/ | Hospital | [facility] | Conversion | | | 2019 | Encounter | [facility] | Transaction, | | | | | CLINIC [address] | Provider Unknown | | | | | [place] | [phone] | | | | | [address] | | | | | | [phone] | | | +--------+ + + + [...] | 2020 | Visit | | Kathleen, ERP BUSINESS ANALYST [address] | | | | | | [address] | | | | | | [place] [address] | | | | | | [phone] | | | | | | | | +--------+---------+ + + + | 03/06/ | Office | Pulmonology | Tristian Foote MD | | | 2019 | Visit | | [address] | | | | | | [place] | | | | | | [address] | | | | | | | [...] | | | Patient | performed at [facility];[address] | | LAB | | | | [address];[place] | | | | | | [address] | | | | + + + [...] | | | | | performed at [facility] | | | | | | [facility];[place], [place] | | | | | | [address] | | | | + + + [...] | | | Basophils | performed at [facility], [address] | [address] | LAB | | | | [address], | | | | | | [place] [address] | | | | + + + [...] | | | | performed at [facility], [address] | | | | | | [address] [facility], | | | | | | [place] [address] | | | | + + + [...] NEGATIVE Testing | | | performed at [facility];[address] [place] [address];[place] [address] | | + + + + +---------+ [...] | | | Screen | performed at [facility];[address] | | LAB | | | | [address];[place], [place] | | | | | | [address] | | | | + + + [...]
--- OUTSIDE RECORDS SUMMARY | ~2019-09-15 | XMS | Encounter Summary ---
Demographics + + + | Address | [address] | | | [place] [address] | + + + | Home Phone [...] Team Providers + +------+ + | Care Cardiology Physician Name | Role | Phone | + +------+ + | Maria Vieira | PCP | | + +------+ + Encounter Details +--------+--------+ + + + | Date | Type | Department | Care Team | Description | +--------+--------+ + + + | 08/30/ | Intake | [facility] | | N/A | | 2020 | | [facility] [place] [address] | | | | | | [address] | | | | | | [place] | | | | | | [address] | | | | | | [phone] | | | +--------+--------+ + + + [...] | | | | | | [place] [address] | | | | | | [phone] | | | | | | | | +--------+---------+ + + + | 03/06/ | Office | Pulmonology | Tristian Foote MD | | | 2019 | Visit | | [address] | | | | | | [place] | | | | | | [address] | | | | | | | | +--------+---------+ + + + documented as of this encounter Visit Diagnoses Not on filedocumented in this encounter"
--- OUTSIDE RECORDS SUMMARY | ~2019-09-15 | XMS | Encounter Summary ---
Demographics + + + | Address | [address] | | | [place] [address] | + + + | Home Phone [...] Providers + +------+ + | Care Cloth Bleaching Supervisor Name | Role | Phone | + +------+ + | Landen Schaffer MD | PCP | | + +------+ + Encounter Details +--------+ + + + + | Date | Type | Department | Care Team | Description | +--------+ + + + + | 09/21/ | [facility] | [facility] | Cholo Sullivan | Encounter for | | 2019 | Encounter | [facility] MAINOR Vera MD [address] | removal of biliary | | | | INTRA OP [address] | [place] [address] | stent | | | | [address] [place], [place] | [phone] | | | | | [address] | | | | | | [phone] | | | +--------+ + + + [...] 09/21/18722 Date of Service: 09/21/18721 Status: Signed Gas Welder: Cholo Sullivan MD (Physician) [facility] Service: Gastroenterology Brief Post-op Discharge [...] Your Medications These medications were sent to [facility] [place], [place] - [address] [employer] [facility] [address] omeprazole 20 MG capsule Cholo Sullivan MD [...] | | | | | [place] [address] | | | | | | [phone] | | | | | | | | +--------+---------+ + + + | 03/06/ | Office | Pulmonology | Tristian Foote MD | | | 2019 | Visit | | [address] | | | | | | [place] | | | | | | [address] | | | | | | | [...] + + | Historically converted procedure from [facility] environment | EXTERNAL LAB | | [facility] GI | | | | [...] Number of | | | Addenda: 0 [facility] - Endoscopy | | | Services | | + + + + +---------+ + + | Performing | Address | City/State/[facility] | Phone Number | | Organization | | | | + +---------+ + + | EXTERNAL LAB | | | | + +---------+ + + documented in this encounter Visit Diagnoses + + | Diagnosis | + + | Encounter for removal of biliary stent | + + documented in this encounter
--- OUTSIDE RECORDS SUMMARY | ~2019-09-15 | XMS | Encounter Summary ---
Demographics + + + | Address | [address] | | | [place] [address] | + + + | Home Phone [...] Team Providers + +------+ + | Care Skoog Machine Operator Name | Role | Phone [...] + + | 12/28/ | Telephone | [facility] | Michele Motta MD | Results, Imaging | | 2019 | | GENERAL SURGERY [address] | [address] | | | | | [address] | [address] [place], [place] | | | | | [place], [place] | [address] | | | | | [address] | | | | | | [phone] | | | +--------+ + + + [...] | | | | | [place] [address] | | | | | | [phone] | | | | | | | | +--------+---------+ + + + | 03/06/ | Office | Pulmonology | Tristian Foote MD | | | 2019 | Visit | | [address] | | | | | | [place] | | | | | | [address] | | | | | | | | +--------+---------+ + + + documented as of this encounter Visit Diagnoses Not on filedocumented in this encounter"
--- OUTSIDE RECORDS SUMMARY | ~2019-09-15 | XMS | Encounter Summary ---
Demographics + + + | Address | [address] | | | [place] [address] | + + + | Home Phone | | + + + | Preferred Language | Unknown | + + + | Marital Status | | + + + | Roman Catholic Affiliation | 1013 | + + + | Race | Unknown | + + + | Ethnic Group | Unknown | + + + Author + + + | Author | [facility] | | | and [place] | + + + | Organization | [facility] | | | [...] Team Providers + +------+ + | Care College Athlete Name | Role | Phone | + [...] + + | 08/31/ | Documentati | [facility] | Amadou Bandanawaf [place], | Other (IMPLANT | | 2020 | on | CARDIOLOGY [place] | Gelatin Plant Supervisor | RECORD) | | | | [address] | | | | | | [place] | | | | | | [address] | | | | | | [phone] | | | +--------+ + + + [...] of this encounter Progress Notes Gina Banda, Gelatin Plant Supervisor - 09/01/2019 11:59 PM PDTIMPLANT RECORDElectronically si gned by Gina Banda Gelatin Plant Supervisor at 09/04/2019 9:26 AM PDTdocumented in this [...] [address] | | | | | | [place] [address] | | | | | | [phone] | | | | | | | | +--------+---------+ + + + | 03/06/ | Office | Pulmonology | Tristian Foote MD | | | 2020 | Visit | | [address] | | | | | | [place] | | | | | | [address] | | | | | | | | +--------+---------+ + + + documented as of this encounter Visit Diagnoses Not on filedocumented in this encounter"
--- OUTSIDE RECORDS SUMMARY | ~2019-09-15 | XMS | Encounter Summary ---
Demographics + + + | Address | [address] | | | [place] [address] | + + + | Home Phone | | + + + | Preferred Language | Unknown | + + + | Marital Status | | + + + | Latter-Day Affiliation | 1013 | + + + | Race | Unknown | + + + | Ethnic Group | Unknown | + + + Author + + + | Author | [facility] | | | and [place] | + + + | Organization | [facility] | | | [...] Team Providers + +------+ + | Care Accounting Coordinator Name | Role | Phone | + +------+ + | Maria Vieira | PCP | | + +------+ + Encounter Details +--------+ + + + + | Date | Type | Department | Care Team | Description | +--------+ + + + + | 12/23/ | Hospital | [facility] | Michele Motta MD | Bloating; | | 2019 | Encounter | CENTER OPIC XRAY | [address] [place] | Postprandial | | | | [address] | [address] [place], [place] | epigastric pain | | | | [address] [place], [place] | [address] | | | | | [address] | | | | | | [phone] | Yuri Pradoc Pro | | +--------+ [...] [address] | | | | | | [place] [address] | | | | | | [phone] | | | | | | | | +--------+---------+ + + + | 03/06/ | Office | Pulmonology | Tristian Foote MD | | | 2019 | Visit | | [address] | | | | | | [place] | | | | | | [address] | | | | | | | [...] | | 1445, For 1 dose, Oskar uhnter., | | | | | | | Radiology | | | | | | + +--------+ +---------+------+------+ +---+---+ | | | +---+---+ documented in this encounter"
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
--- OUTSIDE RECORDS SUMMARY | ~2019-09-15 | XMS | Encounter Summary ---
Demographics + + + | Address | [address] | | | [place] [address] | + + + | Home Phone | | + + + | Preferred Language | Unknown | + + + | Marital Status | | + + + | Restorationist Affiliation | 1013 | + + + | Race | Unknown | + + + | Ethnic Group | Unknown | + + + Author + + + | Author | [facility] | | | and [place] | + + + | Organization | [facility] | | [...] Team Providers + +------+ + | Care Cupola Patcher Name | Role | Phone | + +------+ + | Landen Schaffer MD | PCP | | + +------+ + Encounter Details +--------+ + + + + | Date | Type | Department | Care Team | Description | +--------+ + + + + | 05/27/ | Hospital | [facility] IP | Conversion | Pain | | 2018 | Encounter | CONVERSION [address] | Transaction, | | | | | [address] | Provider Unknown | | | | | [place] | [phone] | | | | | [address] | | | | | | [phone] | | | +--------+ + + + [...] | | | | | [place] [address] | | | | | | [phone] | | | | | | | | +--------+---------+ + + + | 03/06/ | Office | Pulmonology | Tristian Foote MD | | | 2019 | Visit | | [address] | | | | | | [place] | | | | | | [address] | | | | | | | [...]
--- OUTSIDE RECORDS SUMMARY | ~2019-09-15 | XMS | Encounter Summary ---
Demographics + + + | Address | [address] | | | [place] [address] | + + + | Home Phone | | + + + | Preferred Language | Unknown | + + + | Marital Status | | + + + | Methodist Affiliation | 1013 | + + + | Race | Unknown | + + + | Ethnic Group | Unknown | + + + Author + + + | Author | [facility] | | | and [place] | + + + | Organization | [facility] | | | [...] Team Providers + +------+ + | Care Patient Care Secretary Name | Role | Phone | + [...] [address] | | | | | [place] | [address] | | | | | [address] | [place] [address] | | | | | [phone] | [phone] | | | | | | | [...] [address] | | | | | | [facility] [place] [address] | | | | | | [phone] | | | | | | | | +--------+---------+ + + + | 03/06/ | Office | Pulmonology | Tristian Foote MD | | | 2019 | Visit | | [address] | | | | | | [place] | | | | | | [address] | | | | | | | [...] | | | | | performed at [facility];[address] | | | | | | [facility] | | | | | | [address];[place] [address] | | | | | | | [...] EXTERNAL | | | | performed at [facility], [address] | | LAB | | | | [facility] | | | | | | [place] [address] | | | | + + + + + + | HCV | [id number] (A)Comment: | IU/mL | EXTERNAL | | [...] | | | | | performed at [facility], [address] | | | | | | [facility] | | | | | | [place] [address] | | | | + + + [...]
--- OUTSIDE RECORDS SUMMARY | ~2019-09-15 | XMS | Encounter Summary ---
Demographics + + + | Address | [address] | | | [place] [address] | + + + | Home Phone [...] Team Providers + +------+ + | Care Senior Network Security Engineer Name | Role | Phone | [...] [address] | | | | | [place], | [place] | | | | | [place] [address] | [address] | | | | | [phone] | | | +--------+ + + + [...] | | | | | [place] [address] | | | | | | [phone] | | | | | | | | +--------+---------+ + + + | 03/06/ | Office | Pulmonology | Tristian Foote MD | | | 2019 | Visit | | [address] | | | | | | [place] | | | | | | [id number] | | | | | | | | +--------+---------+ + + + documented as of this encounter Visit Diagnoses Not on filedocumented in this encounter"
--- OUTSIDE RECORDS SUMMARY | ~2019-09-15 | XMS | Encounter Summary ---
Demographics + + + | Address | [address] | | | [place] [address] | + + + | Home Phone [...] Team Providers + +------+ + | Care Gusset Maker Name | Role | Phone | [...] + + | 03/10/ | Refill | [facility] | Tristian Foote MD | Medication Refill | | 2019 | | PULMONOLOGY [address] | [address] | | | | | [address] | [place], [place] | | | | | [place], [place] | [address] | | | | | [address] | | | | | | [phone] | | | +--------+--------+ + + + [...] | | | | | [place] [address] | | | | | | [phone] | | | | | | | | +--------+---------+ + + + | 03/06/ | Office | Pulmonology | Tristian Foote MD | | | 2019 | Visit | | [address] | | | | | | [place] | | | | | | [address] | | | | | | | | +--------+---------+ + + + documented as of this encounter Visit Diagnoses Not on filedocumented in this encounter"
--- OUTSIDE RECORDS SUMMARY | ~2019-09-15 | XMS | Encounter Summary ---
Demographics + + + | Address | [address] | | | [place] [address] | + + + | Home Phone [...] Team Providers + +------+ + | Care Museum Security Chief Name | Role | Phone | + +------+ + | Landen Schaffer MD | PCP | | + +------+ + Encounter Details +--------+ + + + + | Date | Type | Department | Care Team | Description | +--------+ + + + + | 07/21/ | Hospital | [facility] | Conversion | | | 2019 | Encounter | [facility] | Transaction, | | | | | CLINIC [address] | Provider Unknown | | | | | [place] | [phone] | | | | | [address] | | | | | | [phone] | | | +--------+ + + + [...] [address] | | | | | | [place] [address] | | | | | | [phone] | | | | | | | | +--------+---------+ + + + | 03/06/ | Office | Pulmonology | Tristian Foote MD | | | 2019 | Visit | | [address] | | | | | | [place] | | | | | | [address] | | | | | | | [...] | | | | | performed at [facility] | | | | | | [facility];[place], [place] | | | | | | [address] | | | | + + + [...] | | | | | [place] [address] | | | | + + + [...] W | | | | | | [facility], | | | | | | [place] [address] | | | | + + + [...] NEGATIVE Testing | | | performed at [facility];[address] [place] [address];[place] [address] | | + + + + +---------+ [...] + + | Historically converted procedure from [facility] Epic environment | EXTERNAL LAB | + + + + +---------+ + + | Performing | Address | City/State/Zipcode | Phone Number | | Organization | | | | + +---------+ + + | EXTERNAL LAB | | | | + +---------+ + + documented in this encounter Visit Diagnoses Not on filedocumented in this encounter"
--- OUTSIDE RECORDS SUMMARY | 2019-09-15 15:06 | XMS ---
PreManage Notification: CATY VALLEJO Security Budget And Policy Analyst Events No recent Security Events currently on file CRITERIA MET - History of Sepsis [facility] - 2 Visits in 30 Days CARE PROVIDERS ANNA JOHNS Physician Veneer Department Manager 08/02/2018-Current PHONE: [phone] Pasquale has no Care Guidelines for this patient. Jamila VISIT COUNT (12 MO.) 4 [facility] TOTAL 4 NOTE: Visits indicate total known visits. 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 - Personal history of nicotine dependence - Shortness of breath - Other long-term (current) drug therapy - Atrioventricular block, complete - Unspecified atrial fibrillation - Unspecified asthma, uncomplicated - Allergy status to other drugs, medicaments and biological sub 07/24/2019 13:19 [facility] TYPE: Emergency COMPLAINT: - SOB 02/25/2019 22:08 [facility] TYPE: Emergency COMPLAINT: - URINE PROBLEM/ABD PAIN INPATIENT VISIT TRACKING (12 MO.) 08/31/2019 21:53 [facility] TYPE: Internal Medicine DIAGNOSES: - Atrioventricular block, complete - Permanent atrial fibrillation - Bradycardia, unspecified 07/24/2019 16:54 [facility] TYPE: Medical Surgical COMPLAINT: - RESPIRATORY FAILURE DIAGNOSES: - 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
[2019-09-15] MEDS ORDERED: ASPIR-TRIN325 MG PO (16:22)
--- NOTE | 2019-09-17 15:26 | EKG ---
[facility] [address] [facility] [place] [address] Signed Ventricular-paced rhythm Abnormal ECG When compared with ECG of 31-AUG-2019 16:47, Electronic ventricular pacemaker has replaced Atrial fibrillation Vent. rate has increased BY 25 BPM Confirmed by ROSETTA BARTON DO ([id number]) on 09/17/2019 3:26:06 PM Electronically Signed By: ROSETTA BARTON DO 09/17/19 1526 PATIENT NAME: YONICATY Mcfadden Electrocardiogram DATE OF : 59 PHYSICIAN: ROSETTA BARTON DO REPORT #: [id number] REPORT IS CONFIDENTIAL AND NOT TO BE RELEASED WITHOUT AUTHORIZATION
== END 2019-09-15 18:29 | disposition short-term general hospital (02) ==
LOC: ED 15:02
DX: T82.7XXA Infection and inflammatory reaction due to other cardiac and vascular devices, implants and grafts, initial encounter (principal); I48.91 Unspecified atrial fibrillation; J45.909 Unspecified asthma, uncomplicated; Z87.891 Personal history of nicotine dependence; Z88.8 Allergy status to other drugs, medicaments and biological substances; Z79.899 Other long term (current) drug therapy
CPT/HCPCS: 71045; 80053; 83605; 85025; 85610; 93005; 93010; 96374; 96375; 99284-25; J2060; J2405; J7030

== ENCOUNTER 2020-06-25 13:44 | Emergency (ER) | payer MEDICARE ==
[~2020-06-25] VITALS: Ht 198.1 cm; Wt 83.0 kg
[~2020-06-25 13:44] MED LIST changes: +ASPIR-TRIN325 MG PO
--- OUTSIDE RECORDS SUMMARY | 2020-06-25 13:46 | XMS ---
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 ENadine VISIT COUNT (12 MO.) 4 DAYNE Hernández TOTAL 4 NOTE: Visits indicate total known visits. ED/UCC VISIT TRACKING (12 MO.) 06/25/2020 13:45 [facility] [place] TYPE: Emergency COMPLAINT: - SOB, COLD SYMPTOMS, GROIN PAIN 09/15/2019 15:03 [facility] [place] TYPE: Emergency COMPLAINT: - CHEST PAIN, RECENT PACEMAKER DIAGNOSES: - Unspecified asthma, uncomplicated - Other fpc (current) drug therapy - Infection and inflammatory reaction due to other cardiac and vascular devices, implants and grafts, initial encounter - Unspecified atrial fibrillation - Personal history of nicotine dependence - Fever, unspecified - Allergy status to other drugs, medicaments and biological substances 08/31/2019 16:23 [facility] [place] TYPE: Emergency COMPLAINT: - HEART ISSUE DIAGNOSES: - snf (current) use of inhaled steroids - terminal supervisor (current) use of anticoagulants - Personal history of nicotine dependence - Shortness of breath - Other fpc (current) drug therapy - Atrioventricular block, complete - Unspecified atrial fibrillation - Unspecified asthma, uncomplicated - Allergy status to other drugs, medicaments and biological substances 07/24/2019 13:19 [facility] TYPE: Emergency COMPLAINT: - SOB INPATIENT VISIT TRACKING (12 MO.) 09/15/2019 20:04 [facility] TYPE: Internal Medicine DIAGNOSES: - Mixed hyperlipidemia - infected pacemaker site - Infection and inflammatory reaction due to other cardiac and vascular devices, implants and grafts, initial encounter - Presence of cardiac pacemaker - Emphysema, unspecified - Hepatomegaly, not elsewhere classified - Permanent atrial fibrillation - Essential (primary) hypertension - Cellulitis of chest wall 08/31/2019 21:53 [facility] TYPE: Internal Medicine DIAGNOSES: - Atrioventricular block, complete - Permanent atrial fibrillation - Bradycardia, unspecified 07/24/2019 16:54 [facility] [place] TYPE: Medical Surgical COMPLAINT: - RESPIRATORY FAILURE DIAGNOSES: - snf (current) use of inhaled steroids - Unspecified asthma, uncomplicated - Acquired absence of lung [part of] - Do not resuscitate - 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
[2020-06-25] MEDS ORDERED: WARFARIN SODIUM4 MG PO (13:57)
[2020-06-25] MEDS ORDERED: AMLODIPINE BESYL5 MG PO (14:34)
[2020-06-25] MEDS ORDERED: PREDNISONE20 MG PO (16:48)
--- NOTE | 2020-06-26 17:02 | EKG ---
[facility] [address] [facility] [place], [place] [address] Signed Ventricular-paced rhythm Abnormal ECG When compared with ECG of 15-SEP-2019 15:07, No significant change was found Confirmed by VENKATESH CARUSO MD ([id number]) on 06/26/2020 5:02:28 PM Electronically Signed By: VENKATESH CARUSO MD 06/26/20 1702 PATIENT NAME: YONI,CATY DEX Electrocardiogram DATE OF : 59 PHYSICIAN: VENKATESH CARUSO MD REPORT #: [id number] REPORT IS CONFIDENTIAL AND NOT TO BE RELEASED WITHOUT AUTHORIZATION
== END 2020-06-25 16:57 | disposition home or self-care (01) ==
LOC: ED 13:44
DX: J44.1 Chronic obstructive pulmonary disease with (acute) exacerbation (principal); Z20.822 Contact with and (suspected) exposure to COVID-19; I48.91 Unspecified atrial fibrillation; J45.909 Unspecified asthma, uncomplicated; Z87.891 Personal history of nicotine dependence; Z88.8 Allergy status to other drugs, medicaments and biological substances; Z79.899 Other long term (current) drug therapy; Z79.01 Long term (current) use of anticoagulants
CPT/HCPCS: 71045; 80053; 83735; 83880; 84484; 85025; 87502; 93005; 93010; 94640; 96374; 99285-25; C9803; J2930; U0003

== ENCOUNTER 2021-11-21 14:51 | Inpatient (IN) | payer MEDICARE ==
[~2021-11-21] VITALS: Ht 198.1 cm; Wt 81.5 kg
[~2021-11-21 14:51] MED LIST changes: +AMLODIPINE BESYL5 MG PO; +PREDNISONE20 MG PO
[2021-11-22] MEDS ORDERED: METOPROLOL TART25 MG PO (16:56)
[2021-11-23] MEDS ORDERED: DEXAMETHASONE6 MG PO (12:06)
[2021-11-23] MEDS ORDERED: METOPROLOL TART25 MG (12:12)
[2021-11-23] MEDS ORDERED: METOPROLOL TART25 MG PO (12:13)
--- NOTE | 2021-11-24 13:31 | EKG ---
[facility] [address] [facility] [place], [place] [address] Signed EKG completed, results pending confirmation PATIENT NAME: YONICATY Mcfadden Electrocardiogram DATE OF : 59 PHYSICIAN: PRELIMINARY REPORT #: [id number] REPORT IS CONFIDENTIAL AND NOT TO BE RELEASED WITHOUT AUTHORIZATION
== END 2021-11-23 13:30 | disposition home or self-care (01) | DRG 177 ==
LOC: ED 14:51 → MS 18:54
PROVIDERS: ADMIT Internal Medicine; ATTEND Internal Medicine
PROC: 8E0ZXY6 Isolation (ICD-10-PCS; principal; 2021-11-21)
PROC: XW033E5 Introduction of Remdesivir Anti-infective into Peripheral Vein, Percutaneous Approach, New Technology Group 5 (ICD-10-PCS; 2021-11-21)
PROC: 3E0DX3Z Introduction of Anti-inflammatory into Mouth and Pharynx, External Approach (ICD-10-PCS; 2021-11-21)
DX: U07.1 COVID-19 (principal); J12.82 Pneumonia due to coronavirus disease 2019; J96.01 Acute respiratory failure with hypoxia; J44.0 Chronic obstructive pulmonary disease with (acute) lower respiratory infection; J44.1 Chronic obstructive pulmonary disease with (acute) exacerbation; Z66 Do not resuscitate; E86.0 Dehydration; I10 Essential (primary) hypertension; I48.0 Paroxysmal atrial fibrillation; Z88.8 Allergy status to other drugs, medicaments and biological substances; Z87.891 Personal history of nicotine dependence; Z90.2 Acquired absence of lung [part of]; Z95.0 Presence of cardiac pacemaker; Z98.890 Other specified postprocedural states; Z79.01 Long term (current) use of anticoagulants; Z79.899 Other long term (current) drug therapy
CPT/HCPCS: 36415; 71045; 80053; 81001; 83605; 83735; 83880; 84484; 85025; 85610; 87040; 87502; 93005; 93010; 94640; 94664; 94667; 94668; 94760; 94762; 96374; 96375; 99285-25; A9270; C9803; J0248; J0780; J2405; J2930; J7050; J7121; J8540; U0003

== ENCOUNTER 2022-02-13 05:30 | Day surgery (SDC) | payer MEDICARE ==
[~2022-02-13] VITALS: Ht 198.1 cm; Wt 84.0 kg
[~2022-02-13 05:30] MED LIST changes: +DEXAMETHASONE6 MG PO; +METOPROLOL TART25 MG; +METOPROLOL TART25 MG PO
--- NOTE | 2022-02-13 08:31 | NUR ---
02/13/22 0831 Neli Fernandez 0820 PT ARRIVED TO PACU ON RA, PT WAKES OFF AND ON. RN ENCOURAGES DEEP BREATHING. APNEA NOTED WHEN ASLEEP. 0829 PT CONTINUES TO EASILY FALL ASLEEP AND PT WAKES TO VERBAL STIMULI AND DEEP BREATHING NOTED. HOB INCREASED SLIGHTLY, PLAN OF CARE DISCUSSED.
--- NOTE | 2022-02-17 07:32 | OR ---
[facility] [address] [place], [place] [address] Signed DATE OF OPERATION: 02/13/2022 SURGEON: Julio Cesar Allen MD PREOPERATIVE DIAGNOSES: 1. Screening. 2. Minimal diverticulosis. POSTOPERATIVE DIAGNOSES: 1. Qocutdo-tr-mmnwkzjg sigmoid diverticulosis. 2. Fvrlrwi-hm-ljlugttq internal hemorrhoids. 3. 3 mm polyps x3 and distal rectum. PROCEDURE: Colonoscopy with hot biopsy. ESTIMATED BLOOD LOSS: None. INDICATIONS: Meet is a 66-year-old gentleman asked to see me for a followup colonoscopy. I helped him with his initial screening colonoscopy in 2012 at the age of 56. He had minimal diverticulosis at that time. There were no biopsies. We asked him to follow up in 10 years. He has no family history of colon cancer or polyps. He gives no lower GI complaints. 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 He has also had COVID as well. He still sees his post framer once or twice a year. He has been released by the publishing specialist. 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 Nevertheless, he has made himself a DNI and DNR. We talked about that in the office, as well as this morning. He wanted to assist in the DNR DNI status just for the length of the procedure. We therefore filled out the appropriate paperwork and we all signed that together. He told us he wanted no heroic measures. In the office, I gave him a pamphlet on colonoscopy. We had reviewed the nature of that test. There is risk including, but not limited to gas bloating, crampy abdominal pain, bleeding, perforation requiring surgery, and missed diagnosis. We also reviewed the need for monitored anesthesia care given his advanced medical issues particularly his heart and his lungs. He had expressed understanding and wished to proceed. PROCEDURE IN DETAIL: Electronically Signed By: JULIO CESAR ALLEN MD 02/17/22 0732 PATIENT NAME: CATY VALLEJO OPERATIVE REPORT DATE OF : 59 REPORT #: [id number] PHYSICIAN: JULIO CESAR ALLEN MD PCP: ANNA JOHNS PA-C REPORT IS CONFIDENTIAL AND NOT TO BE RELEASED WITHOUT AUTHORIZATION [facility] [address] [place], [place] [address] Signed Bill was taken into our endoscopy suite and placed in the left lateral decubitus position. He was given monitored anesthesia care per our nurse price lister. A digital rectal exam was performed and this was unremarkable. His prostate is very small. He had no external hemorrhoids and good sphincter tone. There were no masses. Adult colonoscope had been introduced and we took out three tiny polyps in the distal half of his rectum with the help of a hot biopsy forceps. We were having some trouble with insufflation area on the scope and it took us some time to work that out. In the end, we changed out the and that seemed to really help. After that, we were able to get up through his sigmoid colon which is somewhat narrow and tortuous with diverticula. Once we got in the left colon, the camera went fairly nicely all the way around into the cecum. His prep was quite good. We could easily see the appendiceal orifice and ileocecal valve. The scope was then slowly withdrawn. We took pictures throughout for photodocumentation. His diverticula are moderate in size few to moderate in number, and scattered about. Back down in the rectum we retroflexed the scope and he does have just some minimal to moderate internal hemorrhoid columns. After this, the gas was suctioned out. The colonoscope removed. Meet tolerated the procedure quite well. RECOMMENDATIONS: I will see Meet back in my office in 7 to 14 days to review his results. He will always need monitored anesthesia care in the future. Julio Cesar Allen MD ALB/MODL /[id number] cc: JOSIAH Samuel MD Mershed Alsamara, MD Copies: ANNA JOHNS PA-C, ANDREW L MD Electronically Signed By: JULIO CESAR ALLEN MD 02/17/22 0732 PATIENT NAME: CATY VALLEJO OPERATIVE REPORT DATE OF : 59 REPORT #: [id number] PHYSICIAN: JULIO CESAR ALLEN MD PCP: ANNA JOHNS PA-C REPORT IS CONFIDENTIAL AND NOT TO BE RELEASED WITHOUT AUTHORIZATION [address] [address] Signed LAQUITA JASON MD ~ Electronically Signed By: JULIO CESAR ALLEN MD 02/17/22 0732 PATIENT NAME: CATY VALLEJO DEX OPERATIVE REPORT DATE OF : 59 REPORT #: [id number] PHYSICIAN: JULIO CESAR ALLEN MD PCP: ANNA JOHNS PA-C REPORT IS CONFIDENTIAL AND NOT TO BE RELEASED WITHOUT AUTHORIZATION
--- NOTE | 2022-02-17 18:50 | PATH ---
[facility] [address] [place], [place] [address] Signed SPECIMEN(S): A DISTAL RECTAL POLYP SPECIMEN SOURCE: A. DISTAL RECTAL POLYP CLINICAL HISTORY: Screening; internal hemorrhoids; diverticulosis; rectal polyps FINAL PATHOLOGIC DIAGNOSIS: Colon, distal rectal polyp, biopsy: - Hyperplastic polyp. NRT:cml:C2NR MICROSCOPIC EXAMINATION: Histologic sections of all submitted blocks are examined by light microscopy. These findings, together with the gross examination, support the pathologic diagnosis. GROSS DESCRIPTION: The specimen, labeled "WC, 1," and designated on the requisition "distal rectum polypectomy," is received in formalin and consists of three hernandez-white soft tissue fragments that measure 0.2 to 0.4 cm in greatest dimension. The specimen is entirely submitted in cassette (A1). AI (under the direct supervision of a pathologist) The Gross Description was prepared using a voice recognition system. The report was reviewed for accuracy; however, sound-alike word errors, addition and/or deletions may occur. If there is any question about this report, please contact Client Services. PERFORMING LABORATORY: The technical component was performed by [facility], [address] [place] [address] (CLIA# [id number]). [facility], [address] [place] [address], [place] [address] (CLIA# [id number]). Diagnostician: Stacy Ruano MD Pathologist Electronically Signed 02/17/2022 PATIENT NAME: CATY VALLEJO PATHOLOGY DATE OF : 59 REPORT #: [id number] PHYSICIAN: SHASHA AMES PCP: ANNA JOHNS PA-C REPORT IS CONFIDENTIAL AND NOT TO BE RELEASED WITHOUT AUTHORIZATION
== END 2022-02-13 08:55 | disposition home or self-care (01) ==
LOC: OPS 05:30 → DS 05:30 → OPS 07:30 → DS 09:00 → OPS 09:00
PROVIDERS: ATTEND Colon & Rectal Surgery
PROC: 0D5P8ZZ Destruction of Rectum, Via Natural or Artificial Opening Endoscopic (ICD-10-PCS; principal; 2022-02-13 07:30)
DX: Z12.11 Encounter for screening for malignant neoplasm of colon (principal); K57.30 Diverticulosis of large intestine without perforation or abscess without bleeding; K64.8 Other hemorrhoids; K62.1 Rectal polyp; I48.91 Unspecified atrial fibrillation; J44.9 Chronic obstructive pulmonary disease, unspecified; K21.9 Gastro-esophageal reflux disease without esophagitis; I44.2 Atrioventricular block, complete; Z95.0 Presence of cardiac pacemaker; Z66 Do not resuscitate; Z79.01 Long term (current) use of anticoagulants; Z88.8 Allergy status to other drugs, medicaments and biological substances; Z86.16 Personal history of COVID-19
CPT/HCPCS: J0690; J2704; J3010; J7121

== ENCOUNTER 2022-03-27 05:40 | Emergency (ER) | payer MEDICARE ==
[~2022-03-27] VITALS: Ht 198.1 cm; Wt 81.7 kg
[2022-03-27] MEDS ORDERED: CEFDINIR300 MG PO (06:50)
[2022-03-27] MEDS ORDERED: COMBIVENT RESPIM4 GM INH (06:51)
== END 2022-03-27 07:17 | disposition home or self-care (01) ==
LOC: ED 05:40
DX: J12.1 Respiratory syncytial virus pneumonia (principal); I48.91 Unspecified atrial fibrillation; J45.909 Unspecified asthma, uncomplicated; Z87.891 Personal history of nicotine dependence; Z79.899 Other long term (current) drug therapy; Z88.8 Allergy status to other drugs, medicaments and biological substances
CPT/HCPCS: 36415; 71045; 80053; 85025; 96374; 99285-25; J2930

== ENCOUNTER 2022-05-06 08:38 | Observation (INO) | payer MEDICARE ==
[~2022-05-06] VITALS: Ht 198.1 cm; Wt 89.4 kg
[~2022-05-06 08:38] MED LIST changes: +CEFDINIR300 MG PO; +COMBIVENT RESPIM4 GM INH
--- NOTE | 2022-05-06 14:26 | NUR ---
medications reconciled using pharmacy records and patient interview
[2022-05-06] MEDS ORDERED: VITAMIN D325 MC4 PO (14:27)
[2022-05-06] MEDS ORDERED: PREVAGEN PO (14:30)
--- NOTE | 2022-05-06 19:15 | NUR ---
Received report from offgoing shift, hourly rounding initiated.
--- NOTE | 2022-05-06 21:15 | NUR ---
IN pt room for medication administration and assessment. Pt resting on back, states pain is present and would like something. Pt given pain medication with regularly scheduled meds. Pt has no further complaint of discomfort, is looking forward to discharging tomorrow.
--- NOTE | 2022-05-06 23:05 | NUR ---
in pt room for medication administration. Pt resting on back, eyes open, no complaint of pain or discomfort, call light in reach.
--- NOTE | 2022-05-07 00:18 | NUR ---
in pt room for rounding. pt resting on back call light in reach, no complaint of pain.
--- NOTE | 2022-05-07 02:08 | NUR ---
in pt room for medication administration and VS. Pt resting on back breathing is even and unlabored, no complaint of pain. Pt call light in reach
--- NOTE | 2022-05-07 03:55 | NUR ---
in pt room for rounding. pt resting on back, call light in reach, no indication of pain or dicomfort
--- NOTE | 2022-05-07 08:30 | NUR ---
REPORT RECEIVED FROM NIGHT RN AND PT CARE RESUMED. PT. IS ALERT AND ORIENTED TO ALL. REPORTS PT IS TOLERABLE 3/10 IN LOWER ABDOMEN. HE C/O BEING HUNGRY AND BROUGHT CLEAR TRAY. DENIES NAUSEA. ASSESSMENT COMPLETED AND MEDS ADMIN. R.T. IN THE ROOM. LEFT RESTING WITH CALL LIGHT IN REACH.
--- NOTE | 2022-05-07 09:12 | NUR ---
IN PATIENTS ROOM FOR MEDICATION ADMINISTRATION AND ASSESSMENT COMPLETED. PT WAS SITTING UP IN BED EATING BREAKFAST. WENT OVER PLAN OF CARE FOR THE DAY GOAL IS TO SHOWER TODAY.
--- NOTE | 2022-05-07 10:11 | NUR ---
IN PT ROOM TO ASSIST HIM TO CHAIR AND CHANGE BEDDING. PT IS SITTING UP IN CHAIR.
--- NOTE | 2022-05-07 10:50 | NUR ---
Spoke with Meet. He states he lives in town and retired from the [employer] after 30 years. 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 He denies financial issues. States he had had RSV 3 months ago and covid at [place]. He has three children and 4 grandchildren to assist him. He is active and does not use any DME. He plans on dc to home when medically cleared. He lives in a 1 story home with 2 steps and has no issues getting in or out of his home. He drives.
--- NOTE | 2022-05-07 10:54 | NUR ---
PT. DENIES PAIN AND NAUSEA AT THIS TIME. PREPARING FOR SHOWER WITH STUDENT RN
--- NOTE | 2022-05-07 12:35 | NUR ---
PT WAS EATTING LUNCH, NO BREATHING TREATMENT AT THIS TIME
--- NOTE | 2022-05-07 12:58 | NUR ---
PT ALERT, ORIENTED AND SITTING IN CHAIR. I AM FAMUILIAR WITH THIS PT, HAD GOOD VISIT. HE STATED HE IS DOING MUCH BETTER TODAY, BUT NOT ENJOYING BEING NPO. PT REQUESTED I CONTACT HIS CLINICAL ASSOCIATE AND GIVE AN UPDATE. WAS ABLE TO CONTACT SCIENTOLOGIST AND GIVE UPDATE. PT REQUESTED PRAYER, HOPES TO DC TODAY. GAVE G.POST.
--- NOTE | 2022-05-07 14:30 | NUR ---
ASSESSMENT COMPLETED. PT. DENIES PAIN AND IS EAGER TO HAVE LOW FIBER FOODS. BROUGHT SNACKS. CALL LIGHT IN REACH.
--- NOTE | 2022-05-07 17:49 | NUR ---
In pt room for medication administration and VS. Pt was finishing dinner and sitting up right.
--- NOTE | 2022-05-07 19:32 | NUR ---
received report from offgoing shift, hourly rounding initiated
--- NOTE | 2022-05-07 21:20 | NUR ---
IN PT ROOM FOR ROUNDING. PT RESTING BREATHING EVEN AND UNLABORED, NO COMPLAINT OF PAIN, MEDICATION ADMINISTERED PER MAR, CALL LIGHT IN REACH.
--- NOTE | 2022-05-07 22:20 | NUR ---
IN PT ROOM FOR ROUNDING. PT RESTING BREATHING EVEN AND UNLABORED, NO COMPLAINT OF PAIN, MEDICATION ADMINISTERED PER MAR, CALL LIGHT IN REACH.
--- NOTE | 2022-05-08 00:20 | NUR ---
IN PT ROOM FOR ROUNDING. PT RESTING ON SIDE, BREATHING EVEN AND UNLABORED, NO COMPLAINT OF PAIN OR DISCOMFORT, CALL LIGHT IN REACH
--- NOTE | 2022-05-08 02:00 | NUR ---
IN PT ROOM FOR ROUNDING. PT RESTING ON SIDE, BREATHING EVEN AND UNLABORED, NO COMPLAINT OF PAIN OR DISCOMFORT, CALL LIGHT IN REACH
--- NOTE | 2022-05-08 03:56 | NUR ---
IN PT ROOM FOR ROUNDING. PT RESTING ON BACK, BREATHING EVEN AND UNLABORED, NO COMPLAINT OF PAIN OR DISCOMFORT, CALL LIGHT IN REACH
--- NOTE | 2022-05-08 06:34 | NUR ---
IN PT ROOM FOR ROUNDING. PT UP, PLEASANT, NO COMPLAINT OF PAIN. PT BREATHING IS EVEN AND UNLABORED WITH NO INDICIATION OF DISCOMFORT. PT IS ANTICIPATING DISCHARGE THIS MORNING, STATES HE IS "THANKFUL TO BE GOING HOME". PT CALL LIGHT IN REACH
--- NOTE | 2022-05-08 08:15 | NUR ---
PATIENT UP IN CHAIR FOR MEAL. COFFEE GIVEN. CALL LIGHT WITHIN REACH.
--- NOTE | 2022-05-08 08:15 | NUR ---
REPORT RECEIVED FROM NIGHT RN AND PT CARE RESUMED. PT IS ALERT AND ORIENTED. DENIES PAIN OR NAUSEA. STATES HE SLEPT WELL AND IS "READY TO GO HOME". ASSESSMENT COMPLETED AND PT. UP TO THE CHAIR. MEDS ADMIN. LEFT RESTING WITH CALL LIGHT IN REACH.
--- NOTE | 2022-05-08 09:26 | NUR ---
PATIENT IN CHAIR AFTER MEAL. VITALS AND I/O'S COMPLETED. CALL LIGHT WITHIN REACH.
--- NOTE | 2022-05-08 11:00 | NUR ---
Pt walking in the [place], dressed, states he is waiting to see Dr. Alexandra for discharge. He denies needs and plans on dc today.
--- NOTE | 2022-05-08 11:36 | NUR ---
PATIENT IS READY TO GO HOME. DR. WARD HAS NOT SEEN HIM YET. I PROVIDED PATIENT A HANDOUT FROM THE NUTRITION CARE MANUAL ON A LOW-FIBER DIET. I MENTIONED TO PATIENT THAT THIS DIET IS ONLY FOR A LITTLE WHILE TO LET THE GUT HEAL. HE HAS NEVER FOLLOWED A LOW-FIBER DIET BEFORE. FOODS RECOMMENDED LIST AND FOODS TO AVOID LIST PROVIDED. HE SHOULD DO WELL. HE HAS NO QUESTIONS AT THIS TIME. MY OFFICE # PROVIDED IN CASE QUESTIONS ARISE.
--- NOTE | 2022-05-08 12:07 | NUR ---
PT SITTING IN CHAIR WITH BASHIR ON. PT IS TRYING TO WAIT PATIENTLY FOR DR TO COME AND DISCHARGE. GOOD VISIT, GAVE BLESSING AND HAD PRAYER WITH PT. SON IS TO COME AT [place]
--- NOTE | 2022-05-08 13:37 | NUR ---
PATIENT UP IN CHAIR AFTER MEAL. VITALS AND I/O'S COMPLETED. CALL LIGHT WITHIN REACH.
[2022-05-08] MEDS ORDERED: METRONIDAZOLE250 MG PO (13:58)
[2022-05-08] MEDS ORDERED: CIPROFLOXACIN500 MG PO (13:58)
--- NOTE | 2022-05-09 11:03 | HP ---
[facility] [address], [place] [address] Signed ADMISSION DATE: 05/06/2022 REASON FOR ADMISSION: Acute diverticulitis with peridiverticular abscess (small). HISTORY OF PRESENT ILLNESS: This 66-year-old white man presented to the emergency room was evaluated thoroughly by Dr. Leger with crampy abdominal pain and left lower abdominal and suprapubic tenderness. The patient notes no prior bowel movement in the past two weeks. The patient has been using [id number] medication including magnesium citrate and has passed some fluid, but no stool per rectum. The patient was evaluated by CT scan of the abdomen, which confirmed acute diverticulitis as well as a peridiverticular fluid collection consistent with abscess, which is only about 2 cm in size. Notably, he has undergone colonoscopy by Dr. Allen in the past year, which confirmed diverticulosis. No evidence of polyps, cancer, or other problem. PAST MEDICAL HISTORY: Well known for atrial fibrillation for which he takes Coumadin and is fully anticoagulated. He had left lung operation in 2019 and pacemaker placement. He required partial lung resection on the right side at that time. The patient has had cholecystectomy, splenectomy, right foot operation and skull surgery for trauma. ALLERGIES: He has allergies to gabapentin as well as vilanterol (shortness of breath) and umeclidinium, also shortness of breath. MEDICINES: At home include cefdinir 300 mg p.o. b.i.d. and Combivent inhaler. He also takes albuterol inhaler, budesonide (Symbicort) inhaler, omeprazole, Coumadin, amlodipine, and metoprolol. REVIEW OF SYSTEMS: He denies any shortness of breath or chest pain. He has had no hematemesis or blood per rectum. He has had "constipation" as previously described. SOCIAL HISTORY: The patient lives in [place]. His point of contact is his son, Sebastien. He is considered disabled and does not work at this time. Electronically Signed By: ROSELINE WARD MD 05/09/22 1103 PATIENT NAME: MASON VALLEJO HISTORY AND PHYSICAL DATE OF : 59 REPORT #: [id number] PHYSICIAN: ROSELINE WARD MD PCP: MARIA VIEIRA PA-C REPORT IS CONFIDENTIAL AND NOT TO BE RELEASED WITHOUT AUTHORIZATION [facility] [address], [place] [address] Signed PHYSICAL EXAMINATION: GENERAL: Relatively thin white man, who looks alert, oriented and nontoxic. VITAL SIGNS: Height is 6 feet 6 inches, weight 89.4 kg, BMI 22.8. NECK: No thyromegaly or cervical adenopathy. He has no jugular venous distention. Trachea is midline. CHEST: Shows diminished respiratory excursion related to COPD. Has a barrel chest. HEART: Irregularly irregular consistent with atrial fibrillation. ABDOMEN: Nondistended. His midline incision is well healed. There is mild tenderness in the left lower quadrant and suprapubic area, but no sign of peritonitis proper. EXTREMITIES: Show no clubbing, cyanosis, or edema. Additionally, noted was rectal exam by emergency room physician, Dr. Leger confirming tenderness on deep palpation. An empty rectal vault was noted at that time. I have reviewed the CT scan including the reports as described. LABORATORY STUDIES: Show white count of 12.0, hematocrit 40.3, platelets 273,000. Electrolytes normal. Creatinine 0.97. ASSESSMENT: The patient has acute diverticulitis and a very small peridiverticular fluid collection consistent with pericolonic abscess or localized perforation. He shows no sign of systemic toxicity. He is chronically anticoagulated with warfarin on the basis of atrial fibrillation and his ProTime was noted to be therapeutic. He is admitted for IV fluid and IV antibiotic administration, limited oral intake for clear liquids only. I discussed with him the pathophysiology of this problem and the occasional need for surgical intervention, which in this case is unlikely. The peridiverticular fluid collection is extremely small and almost certainly will resolve with antibiotic therapy. We will plan for IV cefoxitin to be administered transitioning ultimately to Cipro and Flagyl orally administered. He will be maintained on his usual medications in the meantime other than Coumadin, which we will allow to hold on the (unlikely) possibility of need for emergent operation. Roseline Ward MD JM/MODL Electronically Signed By: ROSELINE WARD MD 05/09/22 1103 PATIENT NAME: MASON VALLEJO HISTORY AND PHYSICAL DATE OF : 59 REPORT #: [id number] PHYSICIAN: ROSELINE WARD MD PCP: MARIA VIEIRA PA-C REPORT IS CONFIDENTIAL AND NOT TO BE RELEASED WITHOUT AUTHORIZATION [address] [address] Signed /[id number] cc: MD Mason Hernandez, MD Maria Vieira PA-C Copies: JULIO CESAR ALLEN MD, WILLIAM S MD NORRIS, CHLOE K PA-C ~ Electronically Signed By: ROSELINE WARD MD 05/09/22 1103 PATIENT NAME: MASON VALLEJO HISTORY AND PHYSICAL DATE OF : 59 REPORT #: [id number] PHYSICIAN: ROSELINE WARD MD PCP: MARIA VIEIRA PA-C REPORT IS CONFIDENTIAL AND NOT TO BE RELEASED WITHOUT AUTHORIZATION
--- NOTE | 2022-05-09 11:03 | DS ---
[facility] [address] [place], [place] [address] Signed ADMISSION DATE: 05/06/2022 DISCHARGE DATE: 05/08/2022 REASON FOR ADMISSION: Acute diverticulitis with peridiverticular fluid collection (2 cm). HISTORY OF PRESENT ILLNESS: This 66-year-old white man presented to the emergency room with suprapubic and rectal pain. He was evaluated by Dr. Leger and found ultimately to have acute diverticulitis with peridiverticular fluid collection consistent with peridiverticular abscess. He was admitted for further evaluation and care. Other details can be found in the admission history and physical. Notably, a CT scan showed significant sigmoid diverticulitis and peridiverticular fluid collection consistent with abscess, only 2 cm in size. He has undergone colonoscopy by Dr. Murrell in January 2022, confirming diverticulosis. He has had no evidence of cancer. PERTINENT PHYSICAL EXAMINATION: GENERAL: Well-developed, well-nourished white man, and did not look to be systemically toxic. CHEST: Clear. HEART: Regular without murmur. He had diminished respiratory excursion based on his COPD. His heart rate was irregularly irregular, consistent with atrial fibrillation. ABDOMEN: Nondistended. He has midline incision, which is well healed. There is mild tenderness in left lower quadrant and suprapubic area, but no sign of peritonitis proper. LABORATORY STUDIES: Admission labs showed white count 12.0, hematocrit 40.3, platelets 273,000. Creatinine 0.97. HOSPITAL COURSE: He was admitted for acute diverticulitis with peridiverticular fluid collection consistent with localized perforation/abscess. Given the small size of the fluid collection, operative intervention was not required. IV antibiotics and cefoxitin and clear liquid diet were maintained. He had prompt improvement, was advance to a low-fiber diet, transitioned to oral antibiotics, Cipro and Flagyl. By the day of discharge, he was ambulating well, has no tenderness or pain, and tolerating a low-fiber diet well. Electronically Signed By: ROSELINE WARD MD 05/09/22 1103 PATIENT NAME: CATY VALLEJO DISCHARGE SUMMARY DATE OF : 59 REPORT #: [id number] PHYSICIAN: ROSELINE WARD MD PCP: ANNA JOHNS PA-C REPORT IS CONFIDENTIAL AND NOT TO BE RELEASED WITHOUT AUTHORIZATION [address] [address] Signed It is anticipated that he will maintain a low-fiber diet until I see him back in the office in four weeks or so. He will be discharged with seven days of Flagyl and Cipro antibiotic for continued therapy. If he should have problems in the meantime, he will let me know or return to the ER depending on situation. He has returned to his Coumadin use for his chronic atrial fibrillation. DISCHARGE MEDICATIONS: Will include, 1. Cipro 500 mg p.o. b.i.d. #14. 2. Flagyl 250 mg p.o. t.i.d. #21. 3. Multivitamin. 4. Albuterol sulfate. 5. Ventolin inhaler two puffs q.6 hours p.r.n. wheezing. 6. Budesonide formoterol (Symbicort) 2 puffs inhale b.i.d. 7. Omeprazole 20 mg p.o. daily. 8. Warfarin tablets 4 mg tablets 1.5 tablets Wednesday and Wednesday and one tablet on all other days as previously undertaken. 9. Amlodipine 5 mg p.o. daily. 10. Metoprolol 25 mg p.o. b.i.d. 11. Vitamin D3 one cap p.o. daily. 12. Prevagen 1 cap p.o. daily. FOLLOWUP PLANS: He will return to see me in approximately four weeks. He will maintain low-fiber diet until that time. It is unlikely he would be advised to have repeat colonoscopy, as he had it only several months ago, reliably performed and confirming diverticular disease in the left lower quadrant. DISCHARGE DIAGNOSES: 1. Acute sigmoid diverticulitis with peridiverticular fluid collection consistent with localized perforation. 2. Hypertension. 3. Atrial fibrillation with anticoagulation therapy. 4. Chronic obstructive pulmonary disease (advanced). Roseline Ward MD Electronically Signed By: ORSELINE WARD MD 05/09/22 1103 PATIENT NAME: CATY VALLEJO DISCHARGE SUMMARY DATE OF : 59 REPORT #: [id number] PHYSICIAN: ROSELINE WARD MD PCP: ANNA JOHNS PA-C REPORT IS CONFIDENTIAL AND NOT TO BE RELEASED WITHOUT AUTHORIZATION [address] [address] Signed /MODL /[id number] cc: JOSIAH Samuel MD Andrew L Bower, MD Copies: ANNA JOHNS PA-C, WILLIAM S MD BOWER, ANDREW L MD ~ Electronically Signed By: ROSELINE WARD MD 05/09/22 1103 PATIENT NAME: CATY VALLEJO DISCHARGE SUMMARY DATE OF : 59 REPORT #: [id number] PHYSICIAN: ROSELINE WARD MD PCP: ANNA JOHNS PA-C REPORT IS CONFIDENTIAL AND NOT TO BE RELEASED WITHOUT AUTHORIZATION
== END 2022-05-08 14:58 | disposition home or self-care (01) ==
LOC: ED 08:38 → MS 08:40
PROVIDERS: ADMIT Surgery; ATTEND Surgery
DX: K57.32 Diverticulitis of large intestine without perforation or abscess without bleeding (principal); I10 Essential (primary) hypertension; I48.91 Unspecified atrial fibrillation; J44.9 Chronic obstructive pulmonary disease, unspecified; Z88.8 Allergy status to other drugs, medicaments and biological substances
CPT/HCPCS: 36415; 74177; 80053; 81003; 83690; 85025; 85610; 94640; 94760; A9270; C9803; J0694; J0744; J1170; J1644; J1885; J2405; J7030; J7121; Q9967; U0003

== ENCOUNTER 2022-08-09 01:33 | Emergency (ER) | payer MEDICARE ==
[~2022-08-09] VITALS: Ht 198.1 cm; Wt 89.4 kg
[~2022-08-09 01:33] MED LIST changes: +CIPROFLOXACIN500 MG PO; +METRONIDAZOLE250 MG PO; +PREVAGEN PO; +VITAMIN D325 MC4 PO
[2022-08-09] MEDS ORDERED: PEPCID40 MG PO (04:41)
[2022-08-09] MEDS ORDERED: ONDANSETRON ODT8 MG PO (04:41)
[2022-08-09] MEDS ORDERED: HYDROCODON-ACE1 EA10 PO (04:41)
[2022-08-09] MEDS ORDERED: LEVOFLOXACIN750 MG PO (04:41)
[2022-08-09 05:05] VITALS: BP 112/63
== END 2022-08-09 05:06 | disposition home or self-care (01) ==
LOC: ED 01:33
DX: K29.70 Gastritis, unspecified, without bleeding (principal); J18.9 Pneumonia, unspecified organism; J45.909 Unspecified asthma, uncomplicated; Z87.891 Personal history of nicotine dependence; Z88.8 Allergy status to other drugs, medicaments and biological substances; Z79.899 Other long term (current) drug therapy
CPT/HCPCS: 36415; 71045; 71260; 74177; 80053; 83690; 85025; 85379; 85610; 85730; A9270; J1170; J2405; J7030; Q9967